=== PATIENT | male | born 1970 | race Caucasian/White ===

== ENCOUNTER 2017-12-04 09:48 | Emergency (ER) | payer OTHER, SELFPAY ==
--- OUTSIDE RECORDS SUMMARY | 2017-12-04 09:52 | XMS REPORT | Continuity of Care Document ---
:1970 Author Organization Interface Problems Problem Status Onset Classification Date Comments Source Date Reported ABDOMINAL PAIN Active 02/19/20 [facility] [place] [place] Dis[place] 07/10/19 07/13/2016 [facility] Diagnosis: 17 Generalized abdominal pain LOWER ABD PAIN Active 05/13/20 [facility] 14 ABD PAIN, Active 05/13/20 [facility] POSSIBLE ACUTE 14 DIVERTICULITIS Discharge 01/05/20 01/07/2014 [facility] Diagnosis: 14 Abdominal pain NAUSEA OR Active 01/24/20 [facility] VOMITING/ABD PAIN 12 Abdominal pain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 02/21/2017 [facility] Anxiety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 02/21/2017 [facility] Anxiety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 02/21/2017 depression [facility] Depression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 02/21/2017 [facility] 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 [facility] 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 [facility] Nausea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 02/21/2017 [facility] Pancreatitis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 02/21/2017 [facility] Pancreatitis,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 02/21/2017 acute [facility] Abdominal pain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 01/26/2012 [facility] Anxiety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 01/26/2012 [facility] Depression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 01/26/2012 [facility] 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 Nausea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 01/26/2012 [facility] Pancreatitis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 01/26/2012 [facility] Diverticulitis of Active Diagnosis 06/03/2014 Kaisen Fang colon GERD -Esophageal Active Diagnosis 06/03/2014 Kaisen Fang reflux Hypertension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 06/03/2014 K[facility] Fang Tension headache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 06/03/2014 K[facility] Fang Allergic rhinitis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 06/03/2014 Kaisen Fang Chronic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 06/03/2014 Kaisen Fang pancreatitis Bipolar disorder,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 06/03/2014 Kaisen Fang unspecified ABDMNAL PAIN Active [facility] SITE Medications Medication Details Route Status Patient Ordering Order Source Instructions Provider Date Morphine
2 mg, Inactive Route: IVP, 2016 [facility] ONCE, Dosing Weight 90.909, kg, Priority: STAT, Start date: 07/10/16 0:15:00 RESOURCE DEVELOPMENT DIRECTOR, Stop date: 07/10/16 0:15:00 RESOURCE DEVELOPMENT DIRECTOR Phenergan
12.5 mg, Inactive Route: IM, 2016 [facility] ONCE, Dosing Weight 90.909, kg, Priority: STAT, Start date: 07/10/16 0:14:00 RESOURCE DEVELOPMENT DIRECTOR, Stop date: 07/10/16 0:14:00 RESOURCE DEVELOPMENT DIRECTOR Zofran
4 mg, Inactive Route: IVP, 2016 [facility] Drug form: INJ, ONCE, Dosing Weight 90.909, kg, Priority: STAT, Start date: 07/09/16 23:36:00 RESOURCE DEVELOPMENT DIRECTOR, Stop date: 07/09/16 23:36:00 RESOURCE DEVELOPMENT DIRECTOR Bentyl
20 mg, Inactive Route: IM, 2016 [facility] ONCE, Dosing Weight 90.909, kg, Start date: 07/09/16 22:50:00 RESOURCE DEVELOPMENT DIRECTOR, Stop date: 07/09/16 22:50:00 RESOURCE DEVELOPMENT DIRECTOR Morphine
4 mg, 1 Inactive mL, Route: 2016 [facility] IVP, Drug form: SOLN, ONCE, Dosing Weight 90.909, kg, Priority: STAT, Start date: 07/09/16 22:05:00 RESOURCE DEVELOPMENT DIRECTOR, Stop date: 07/09/16 22:05:00 RESOURCE DEVELOPMENT DIRECTOR
Notes: (Same as:MORPhine Sulfate) Sodium Chloride
1,000 mL, Inactive 0.154 MEQ/ML 1,000 ml/hr, 2016 [facility] Injectable Infuse Over: 1 Solution hr, Route: IV, ONCE, Priority: STAT, Dosing Weight 90.909 kg, Start date: 07/09/16 22:04:00 RESOURCE DEVELOPMENT DIRECTOR, Duration: 1 doses or times, Stop date: 07/09/16 22:04:00 RESOURCE DEVELOPMENT DIRECTOR Sodium Chloride
1,000 mL, Inactive 0.154 MEQ/ML 1,000 ml/hr, 2016 [facility] Injectable Infuse Over: 1 Solution hr, Route: IV, 1,000, Drug form: INJ, ONCE, Priority: STAT, Dosing Weight 90.909 kg, Start date: 07/09/16 21:47:00 RESOURCE DEVELOPMENT DIRECTOR, Duration: 1 doses or times, Stop date: 07/09/16 21:47:00 RESOURCE DEVELOPMENT DIRECTOR Zofran
4 mg, 2 Inactive mL, Route: 2016 [facility] IVP, Drug form: INJ, ONCE, Dosing Weight 90.909, kg, Priority: STAT, Start date: 07/09/16 21:47:00 RESOURCE DEVELOPMENT DIRECTOR, Stop date: 07/09/16 21:47:00 RESOURCE DEVELOPMENT DIRECTOR
Notes: (Same as: Zofran) MEDICATION WASTE Product Size: 4 mg Product Wasted: ___ mg Ativan
1 mg, 0.5 Inactive mL, Route: 2016 [facility] IVP, Drug form: INJ, ONCE, Dosing Weight 90.909, kg, Priority: STAT, Start date: 07/07/16 20:25:00 RESOURCE DEVELOPMENT DIRECTOR, Stop date: 07/07/16 20:25:00 RESOURCE DEVELOPMENT DIRECTOR
Notes: (Same as: Ativan) Morphine
4 mg, 1 Inactive mL, Route: 2016 [facility] IVP, Drug form: SOLN, ONCE, Dosing Weight 90.909, kg, Priority: STAT, Start date: 07/07/16 20:22:00 RESOURCE DEVELOPMENT DIRECTOR, Stop date: 07/07/16 20:22:00 RESOURCE DEVELOPMENT DIRECTOR
Notes: (Same as:MORPhine Sulfate) Ativan
1 mg, Inactive Route: IVP, 2016 [facility] Drug form: INJ, ONCE, Dosing Weight 90.909, kg, Priority: STAT, Start date: 07/07/16 18:46:00 RESOURCE DEVELOPMENT DIRECTOR, Stop date: 07/07/16 18:46:00 RESOURCE DEVELOPMENT DIRECTOR Morphine
4 mg, Inactive Route: IVP, 2016 [facility] ONCE, Dosing Weight 90.909, kg, Priority: STAT, Start date: 07/07/16 18:46:00 RESOURCE DEVELOPMENT DIRECTOR, Stop date: 07/07/16 18:46:00 RESOURCE DEVELOPMENT DIRECTOR Zofran
4 mg, 2 Inactive mL, Route: 2016 [facility] IVP, Drug form: INJ, ONCE, Dosing Weight 90.909, kg, Priority: STAT, Start date: 07/07/16 18:12:00 RESOURCE DEVELOPMENT DIRECTOR, Stop date: 07/07/16 18:12:00 RESOURCE DEVELOPMENT DIRECTOR
Notes: (Same as: Dennis) MEDICATION WASTE Product Size: 4 mg Product Wasted: ___ mg Lactated Ringers
1,000 mL, Inactive 1,000 mL Rate: 1,[address] [place] [address] ml/hr, Infuse over: 1 hr, Route: IV, Dosing Weight 90.909 kg, Total Volume: 1,000, Start date: 07/07/16 18:11:00 RESOURCE DEVELOPMENT DIRECTOR, Duration: 1 doses or times, Stop date: 07/07/16 19:10:00 RESOURCE DEVELOPMENT DIRECTOR Saline Flush
10 mL, Inactive 0.9% Route: IVP, 2016 [facility] Drug Form: INJ, Dosing Weight 100, kg, PRN, PRN Line Flush, Start date: 07/07/16 17:10:00 RESOURCE DEVELOPMENT DIRECTOR, Duration: 30 day, Stop date: 08/06/16 17:09:00 RESOURCE DEVELOPMENT DIRECTOR
Notes: (Same as: BD Posiflush) Tramadol HCl 1 or 2 tablet Orally Active 50 mg Orally Fang 05/19/ Prachi every 6 hrs 2013 Fang for headache topiramate
25 mg, 1 Inactive tab, Route: 2013 [facility] PO, Drug form: TAB, Bedtime, Dosing Weight 100, kg, Start date: 05/14/14 21:00:00, Duration: 30 day, Stop date: 06/12/14 21:00:00
N otes: (Same As: Topamax) "Do Not Crush" Lactulose 667
20 gm=30 Active MG/ML Oral ml, PO, TID, 2013 [facility] Solution constipation, # 1,000 mL, 0 Refill(s) pantoprazole
40 mg, 1 Inactive tab, Route: 2013 [facility] PO, Drug form: ECTAB, Before Dinner, Dosing Weight 100, kg, Start date: 05/14/14 16:30:00, Duration: 30 day, Stop date: 06/12/14 16:30:00
N otes: Tablet should not be chewed or crushed. (Same as: Protonix) Lactulose 667
30 gm, 45 Inactive MG/ML Oral mL, Route: PO, 2013 [facility] Solution Drug Form: SYRP, Dosing Weight 100, kg, Daily, NOW, Start date: 05/14/14 12:30:00, Duration: 30 day, Stop date: 06/13/14 9:00:00
No nolberto: (Same as:Chronulac) Clonidine
0.1 mg, 1 Inactive Hydrochloride tab, Route: 2013 0.1 MG Oral PO, Drug form: Tablet TAB, BID, Dosing Weight 100, kg, Start date: 05/14/14 9:00:00, Duration: 30 day, Stop date: 06/12/14 17:00:00
N otes: (Same As: Catapres) topiramate
25 mg, 1 Inactive tab, Route: 2013 PO, Drug form: TAB, BID, Dosing Weight 100, kg, Start date: 05/14/14 9:00:00, Duration: 30 day, Stop date: 06/12/14 17:00:00
N otes: (Same As: Topamax) "Do Not Crush" duloxetine
90 mg, 3 Inactive cap, Route: 2013 PO, Drug form: DRC, Daily, Dosing Weight 100, kg, Start date: 05/14/14 9:00:00, Duration: 30 day, Stop date: 06/12/14 9:00:00
No nolberto: (Same as: Cymbalta) (Do Not Crush) Flagyl
500 mg, No Longer 100 mL, Route: Active 2013 IVPB, Drug form: INJ, [id number], Start date: 05/13/14 22:00:00, Duration: 30 day, Stop date: 06/12/14 14:00:00
N otes: (Same as: Flagyl) Avoid alcohol. Alprazolam 2 MG
2 mg, 2 No Longer Oral Tablet tab, Route: Active 2013 [facility] [Xanax] PO, Drug form: TAB, BID, Dosing Weight 100, kg, Start date: 05/13/14 21:30:00, Duration: 30 day, Stop date: 06/12/14 21:00:00
N otes: With food or milk (Same as: Xanax) Zofran
4 mg, 2 No Longer 05/14/ MH mL, Route: Active 2013 [facility] IVP, Drug form: INJ, Q6H, PRN Nausea, Start date: 05/13/14 21:01:00, Duration: 30 day, Stop date: 06/12/14 21:00:00
N otes: (Same as: Zofran) Cipro
400 mg, No Longer MH 200 mL, Route: Active 2013 [facility] IVPB, Drug form: INJ, [id number], Start date: 05/13/14 21:00:00, Duration: 30 day, Stop date: 06/12/14 9:00:00
No nolberto: Do not refrigerate Seroquel
50 mg, 2 No Longer tab, Route: Active 2013 [facility] PO, Drug form: TAB, Bedtime, Dosing Weight 100, kg, Start date: 05/13/14 21:00:00, Duration: 30 day, Stop date: 06/11/14 21:00:00
N otes: (Same as: SEROquel) morphine Sulfate
4 mg, 2 No Longer 05/14/ MH mL, Route: IV, Active 2013 [facility] Drug form: INJ, Q4H, PRN Pain Score 6-10, Start date: 05/13/14 21:00:00, Duration: 30 day, Stop date: 06/12/14 20:59:00
N otes: (Same as:MORPhine Sulfate) Sodium Chloride
1,000 mL, No Longer 0.45% IV 1,000 Rate: 125 Active 2013 [facility] mL ml/hr, Infuse over: 8 hr, Route: IV, Dosing Weight 100 kg, Total Volume: 1,000, Start date: 05/13/14 21:00:00, Duration: 30 day, Stop date: 06/12/14 20:59:00 Singulair
10 mg, 1 No Longer tab, Route: [facility] 2013 [facility] PO, Drug form: TAB, Bedtime, Dosing Weight 100, kg, Start date: 05/13/14 21:00:00, Duration: 30 day, Stop date: 06/11/14 21:00:00
N otes: (Same as:Singulair) Lamictal
250 mg, No Longer 2.5 tab, Active 2013 [facility] Route: PO, Drug form: TAB, Daily, Dosing Weight 100, kg, Start date: 05/13/14 21:00:00, Duration: 30 day, Stop date: 06/11/14 21:00:00
N otes: (Same as:LaMICtal) tramadol
50 mg, 1 No Longer hydrochloride 50 tab, Route: 2013 [facility] Oral Tablet PO, Drug form: TAB, Q6H, Dosing Weight 100, kg, PRN Headache, Start date: 05/13/14 18:52:00, Stop date: 05/23/14 17:21:00
N otes: Not to exceed 400mg/day. (Same As: Ultram) Zofran ODT
4 mg, 1 No Longer tab, Route: [facility] 2013 [facility] PO, Drug form: TABDIS, Q8H, Dosing Weight 100, kg, PRN as needed for nausea/vomitin g, Start date: 05/13/14 18:51:00, Stop date: 06/12/14 18:50:00
N otes: (Same as: Zofran ODT) Bentyl
20 mg, 1 No Longer tab, Route: [facility] 2013 [facility] PO, Drug form: TAB, QID, Dosing Weight 100, kg, PRN Other -See Comment, Start date: 05/13/14 18:50:00, Stop date: 06/12/14 18:49:00, abdominal pain
Notes : (Same as: Radha) topiramate 25 mg
25 mg=1 Active oral capsule cap, PO, BID, 2013 0 Refill(s) Clonidine
0.1 mg, Active Hydrochloride PO, BID, # 60 2013 0.1 MG Oral tab, 0 Tablet Refill(s) Lamictal
250 mg, Active PO, Daily, 0 2013 Refill(s) quetiapine 50 MG
50 mg=1 Active Oral Tablet tab, PO, 2013 [Seroquel] Bedtime, # 180 tab, 0 Refill(s) montelukast 10
10 mg=1 Active MG Oral Tablet tab, PO, 2013 [Singulair] Bedtime, # 30 tab, 0 Refill(s) tramadol
50 mg=1 Active hydrochloride 50 tab, PO, Q6H, 2013 MG Oral Tablet Pain, # 40 tab, 0 Refill(s) duloxetine 60 MG
90 mg, Active Enteric Coated PO, Daily, # 2013 Capsule 30 cap, 0 [Cymbalta] Refill(s) Alprazolam 2 MG
2 mg, PO, Active Oral Tablet BID, 0 2013 [Xanax] Refill(s) pantoprazole 40
=1 Pack, Active MG Granules PO, Daily, # 2013 [Protonix] 30 ea, 0 Refill(s) [place] 1 tablet as Orally Active 10-325 MG Fan Kaisen needed Orally every 2013 Fang 6 hrs Dexilant 1 capsule Orally Active 30 [facility] Kaisen Once a day 2013 Fang Metronidazole 1 tablet Orally Active 500 mg Orally [facility] 05/[facility]/ Kaisen Three times a 2013g day Cipro 1 tablet Orally Active 500 mg Orally Fang 05/12/ Kaisen every 12 hrs 2013 Fang Clonidine HCl 1 tablet at Orally Active 0.1 MG Orally Fang 04/19/ Kaisen bedtime twice a day 2013 Fang (bid) Topiramate 1 tablet Orally Active 25 MG Orally Fang 04/19/ Prachi twice a day 2013 Fang (bid) Dicyclomine
20 mg=1 Active Hydrochloride 20 tab, PO, QID, 2013 [facility] MG Oral Tablet abdominal [Bentyl] pain, # 30 tab, 0 Refill(s) Dicyclomine
20 mg=1 Active Hydrochloride 20 tab, PO, QID, 2013 [facility] MG Oral Tablet abdominal [Bentyl] pain, # 30 tab, 0 Refill(s) Ondansetron 4 MG
4 mg=1 Active Disintegrating tab, PO, Q8H, 2013 [facility] Tablet [Zofran] Nausea and Vomiting, Dissolve tab under tongue, # 10 tab, 0 Refill(s)
Special Instructions: Dissolve tab under tongue Dilaudid
0.5 mg, Inactive Route: IV, 2013 [facility] ONCE, Dosing Weight 100, kg, Priority: STAT, Start date: 01/04/14 14:28:00, Stop date: 01/04/14 14:28:00 Zofran
4 mg, Inactive Route: IVP, 2013 [facility] Drug form: INJ, ONCE, Dosing Weight 100, kg, Priority: STAT, Start date: 01/04/14 14:27:00, Stop date: 01/04/14 14:27:00 Hydromorphone
0.5 mg, Inactive 0.5 mL, Route: 2013 [facility] IVP, Drug form: INJ, ONCE, Dosing Weight 100, kg, Priority: STAT, Start date: 01/04/14 14:00:00, Stop date: 01/04/14 14:00:00 Sodium Chloride
1,000 mL, Inactive 0.154 MEQ/ML 1,000 ml/hr, 2013 [facility] Injectable Infuse Over: 1 Solution hr, Route: IV, 1,000, Drug form: INJ, ONCE, Priority: STAT, Dosing Weight 100 kg, Start date: 01/04/14 11:44:00, Duration: 1 doses or times, Stop date: 01/04/14 11:44:00 Ondansetron
4 mg, 2 Inactive mL, Route: 2013 [facility] IVP, Drug form: INJ, ONCE, Dosing Weight 100, kg, Priority: STAT, Start date: 01/04/14 11:44:00, Stop date: 01/04/14 11:44:00
N otes: (Same as: Zofran) Lorazepam
1 mg, 0.5 Inactive mL, Route: 2013 [facility] IVP, Drug form: INJ, ONCE, Dosing Weight 100, kg, Priority: STAT, Start date: 01/04/14 11:44:00, Stop date: 01/04/14 11:44:00
N otes: (Same as: Ativan) Hydromorphone
0.5 mg, Inactive 0.5 mL, Route: 2013 [facility] IVP, Drug form: INJ, ONCE, Dosing Weight 100, kg, Priority: STAT, Start date: 01/04/14 11:44:00, Stop date: 01/04/14 11:44:00 Zofran
4 mg, Inactive Route: IVP, 2013 [facility] Drug form: INJ, ONCE, Dosing Weight 100, kg, Priority: STAT, Start date: 01/04/14 9:52:00, Stop date: 01/04/14 9:52:00 Phenergan 25 mg 25 mg, 1 tab, PO Active Black oral tablet PO, Q4H, PRN, 2011 [facility] 15 tab, Nausea, Substitution Allowed Zofran 4 mg, 2 mL, IVP No Longer Banda Route: IVP, Active 2011 [facility] Drug form: INJ, ONCE, kg, Start date: 01/24/12 10:21:00, Stop date: 01/24/12 10:21:00 ketorolac 30 mg, 1 mL, IV No Longer Banda Route: IV, Active 2011 [facility] Drug form: INJ, ONCE, kg, Priority: STAT, Start date: 01/24/12 8:29:00, Stop date: 01/24/12 8:29:00 Phenergan + 12.5 mg, 0.5 IVP No Longer Banda Sodium Chloride mL, Route: IVP Central Active 2011 0.9% IV 20 mL Central, Drug form: INJ, ONCE, kg, PRN Nausea & Vomiting, Start date: 01/24/12 8:27:00 Sodium Chloride 1,000 mL, IV No Longer Banda 0.9% (Bolus) IV Rate: 1,000 Active 2011 [facility] 1,000 mL ml/hr, Infuse over: 1 hr, Route: IV, Dosing Weight 100 kg, Total Volume: 1,000, Priority: STAT, Start date: 01/24/12 8:27:00, Duration: 1 doses or times, Stop date: 01/24/12 9:26:00, Bolus Dose
Bolus Dose Saline Flush 5 ml, Route: IVP No Longer Banda 0.9% IVP, Drug Active 2011 [facility] Form: INJ, kg, PRN, PRN Line Flush, Start date: 01/24/12 8:27:00, Duration: 24 hr, Stop date: 01/25/12 8:26:00 Xanax 1/2 tablet in Orally Active 2 MG Orally Fang Kaisen am and noon, three times a Fang 1 tablet at day (tid) bedtime Lamictal 1 tablet Orally Active 250 Orally Fang Kaisen once every Fang night Cymbalta 1 capsule Orally Active 90 Orally Fang Kaisen Once a day Fang Singulair 1 tablet in Orally Active 10 MG Orally Fang Kaisen the evening Once a day Fang Protonix 1 tablet Orally No Longer 40 mg Orally Fang Kaisen Active once a day Fang Seroquel 1 tablet at Orally Active 50 mg Orally Fang Kaisen bedtime Once a day Fang Lisinopril 1 tablet Orally No Longer 20 MG Orally Fang Kaisen Active Once a day Fang Allergies, Adverse Reactions, Alerts Substance Category Reaction Severity Reaction Status Date Comments Source type Reported Lisinopril Adverse abd pain Adverse Active Kaisen Reaction Reaction 4 Fang Bactrim Assertion Drug Active [facility] Compazine Assertion shakey Propensity Active [facility] to adverse [place] reactions to drug Reglan Assertion shakey Propensity Active [facility] to adverse [place] reactions to drug sulfa drugs Assertion Drug Active [facility] Tape Assertion Drug Active [facility] [place] Immunizations Immunization Date Given Site Status Last Updated Comments Source Results Order Name Results Value Reference Date Interpretation Comments Source Range CHEM PANEL Lipase Lvl 243 unit/L 73 - 393 02/19 [facility] CARDIAC Troponin-I null 0.00 - 07/10 [facility] 0.40 [facility] CARDIAC CK MB null 0.5 - 3.6 07/10 [facility] CHEM PANEL B/C Ratio 8 6 - 25 07/10 [facility] CHEM PANEL A/G Ratio 1.2 0.7 - 1.6 07/10 [facility] CHEM PANEL Globulin 3.2 g/dL 2.7 - 4.2 07/10 [facility] CHEM PANEL AGAP 11.1 meq/L 10.0 - 07/10 20.0 [facility] CHEM PANEL eGFR 77 07/10 Result Comment: The eGFR is calculated using the CKD-EPI formula. In most young, healthy individuals the eGFR will be >90 mL/ min/1.73m2. The eGFR declines with age. An eGFR of 60-89 may be normal in mL/min/1.7 some populations, particularly the elderly, for whom the CKD-EPI formula has not been extensively validated. Use of the eGFR is not recommended in the following populations: [facility] 3m2 Individuals with unstable creatinine concentrations, including patients and those with serious co-morbid conditions. Patients with extremes in muscle mass or diet. The data above are obtained from the National Kidney Disease Education Program (NKDEP) which additionally recommends that when the eGFR is used in patients with extremes of body mass index for purposes of drug dosing, the eGFR should be multiplied by the estimated BMI. CHEM PANEL Alk Phos 53 unit/L 39 - 136 07/10 [facility] CHEM PANEL Bili Total 0.3 mg/dL 0.2 - 1.3 07/10 [facility] CHEM PANEL ALT 25 unit/L 0 - 65 07/10 [facility] CHEM PANEL AST 12 unit/L 0 - 37 07/10 [facility] CHEM PANEL BUN 9 mg/dL 7 - 22 07/10 [facility] CHEM PANEL Glucose Lvl 97 mg/dL 70 - 99 07/10 [facility] CHEM PANEL Total 7.1 g/dL 6.4 - 8.4 07/10 [facility] CHEM PANEL Albumin Lvl 3.9 g/dL 3.5 - 5.0 07/10 [facility] CHEM PANEL Potassium 4.1 meq/L 3.5 - 5.1 07/10 MH Lvl /2016 [facility] CHEM PANEL Creatinine 1.15 mg/dL 0.50 - 07/10 MH Lvl 1.40 [facility] CHEM PANEL Sodium Lvl 138 meq/L 135 - 145 07/10 [facility] CHEM PANEL Chloride Lvl 104 meq/L 95 - 109 07/10 [facility] CHEM PANEL CO2 27 meq/L 24 - 32 07/10 [facility] CHEM PANEL Calcium Lvl 8.8 mg/dL 8.5 - 10.5 07/10 [facility] CHEM PANEL Lipase Lvl 336 unit/L 73 - 393 07/10 [facility] HEMATOLOGY Lymphocytes 1.6 K/CMM 1.0 - 5.5 07/10 MH # /2016 [facility] HEMATOLOGY Eosinophils 0.2 K/CMM 0.0 - 0.5 07/10 [facility] HEMATOLOGY Monocytes # 0.5 K/CMM 0.0 - 0.8 07/10 [facility] HEMATOLOGY Segs-Bands # 6.4 K/CMM 1.5 - 8.1 07/10 [facility] HEMATOLOGY Basophils # 0.0 K/CMM 0.0 - 0.2 07/10 [facility] HEMATOLOGY Basophils 0.5 % 0.0 - 1.0 07/10 [facility] HEMATOLOGY Monocytes 6.0 % 2.0 - 12.0 07/10 [facility] HEMATOLOGY Eosinophils 1.8 % 0.0 - 4.0 07/10 [facility] HEMATOLOGY Segs 72.9 % 45.0 - 07/10 MH 75.0 [facility] HEMATOLOGY Lymphocytes 18.8 % 20.0 - 07/10 MH 40.0 [facility] HEMATOLOGY Platelet 235 K/CMM 133 - 450 07/10 [facility] HEMATOLOGY MPV 8.1 fL 7.4 - 10.4 07/10 [facility] HEMATOLOGY MCHC 33.4 g/dL 32.0 - 07/10 MH 36.0 [facility] HEMATOLOGY RDW 13.2 % 11.5 - 07/10 MH 14.5 [facility] HEMATOLOGY Hct 41.7 % 42.0 - 07/10 MH 54.0 [facility] HEMATOLOGY MCH 30.4 pg 27.0 - 07/10 MH 31.0 /2017 [facility] HEMATOLOGY MCV 91.2 fL 80.0 - 07/10 MH 94.0 /2016 [facility] HEMATOLOGY WBC 8.7 K/CMM 3.7 - 10.4 07/10 [facility] HEMATOLOGY Hgb 13.9 g/dL 14.0 - 07/10 18.0 /2016 [facility] HEMATOLOGY RBC 4.57 M/CMM 4.70 - 07/10 MH 6.10 /2016 [facility] URINE AND UA pH 7.0 5.0 - 8.0 07/10 [facility] URINE AND UA Glucose Negative Negative 07/10 STOOL mg/dL mg/dL [facility] URINE AND UA Protein Negative Negative 07/10 [facility] mg/dL mg/dL [facility] URINE AND UA <=1.0 0.1 - 1.0 07/10 [facility] Urobilinogen mg/dL [facility] URINE AND UA Turbidity Clear Clear 07/10 [facility] (07/09/16 8:42 PM) URINE AND UA Spec Grav 1.003 <=1.030 07/10 [facility] URINE AND UA Color Light Yellow Yellow 07/10 [facility] *NA* (07/09/16 8:42 PM) URINE AND UA Blood Small Negative 07/10 [facility] *ABN* (07/09/16 8:42 PM) URINE AND UA Bili Negative Negative 07/10 [facility] *NA* (07/09/16 8:42 PM) URINE AND UA Ketones Negative Negative 07/10 [facility]OOL mg/dL mg/dL [facility] URINE AND UA RBC null 0 - 2 07/10 [facility] URINE AND UA WBC null 0 - 5 07/10 [facility] URINE AND UA Sq Epi Few /LPF Few /LPF 07/10 [facility] URINE AND UA Leuk Est Negative Negative 07/10 [facility] (07/09/16 8:42 PM) URINE AND UA Nitrite Negative Negative 07/10 [facility] (07/09/16 8:42 PM) Abdomen 2 Abdomen 2 Study: 2 views of abdomen 07/09 - views DX views - [facility] History: Abdominal pain Read by: Gema Brock MD Dictated Date/time: 07/09/16 23:00 Electronically Signed by: Gema Brock MD 07/09/16 23:01 FINAL REPORT Comments: Visualized lung bases are clear. No radiographic evidence of free intraperitoneal air. No dilated small or large bowel loops. Moderate to large amount of stool in the right colon. Impression: Constipation. No bowel obstruction CHEM PANEL Magnesium 2.6 mg/dL 1.8 - 2.4 07/08 Lvl /2016 [facility] CHEM PANEL Lipase Lvl 248 unit/L 73 - 393 07/08 [facility] CHEM PANEL Amylase Lvl 79 unit/L 25 - 115 07/08 [facility] CHEM PANEL A/G Ratio 1.2 0.7 - 1.6 07/08 [facility] CHEM PANEL Globulin 3.5 g/dL 2.7 - 4.2 07/08 [facility] CHEM PANEL Bili Total 0.4 mg/dL 0.2 - 1.3 07/08 [facility] CHEM PANEL B/C Ratio 9 6 - 25 07/08 [facility] CHEM PANEL AGAP 8.9 meq/L 10.0 - 07/08 MH 20.0 [facility] CHEM PANEL eGFR 95 07/08 Result Comment: The eGFR is calculated using the CKD-EPI formula. In most young, healthy individuals the eGFR will be >90 mL/ min/1.73m2. The eGFR declines with age. An eGFR of 60-89 may be normal in mL/min/1.7 some populations, particularly the elderly, for whom the CKD-EPI formula has not been extensively validated. Use of the eGFR is not recommended in the following populations: [address] Individuals with unstable creatinine concentrations, including patients and those with serious co-morbid conditions. Patients with extremes in muscle mass or diet. The data above are obtained from the National Kidney Disease Education Program (NKDEP) which additionally recommends that when the eGFR is used in patients with extremes of body mass index for purposes of drug dosing, the eGFR should be multiplied by the estimated BMI. CHEM PANEL Glucose Lvl 78 mg/dL 70 - 99 07/08 [facility] CHEM PANEL BUN 9 mg/dL 7 - 22 07/08 [facility] CHEM PANEL CO2 30 meq/L 24 - 32 07/08 [facility] CHEM PANEL Alk Phos 54 unit/L 39 - 136 07/08 [facility] CHEM PANEL Calcium Lvl 8.9 mg/dL 8.5 - 10.5 07/08 [facility] CHEM PANEL Sodium Lvl 139 meq/L 135 - 145 07/08 [facility] CHEM PANEL Creatinine 0.96 mg/dL 0.50 - 07/08 MH Lvl 1.40 [facility] CHEM PANEL Albumin Lvl 4.1 g/dL 3.5 - 5.0 07/08 [facility] CHEM PANEL Total 7.6 g/dL 6.4 - 8.4 07/08 [facility] CHEM PANEL Potassium 3.9 meq/L 3.5 - 5.1 07/08 MH Lvl /2016 [facility] CHEM PANEL Chloride Lvl 104 meq/L 95 - 109 07/08 [facility] CHEM PANEL AST 9 unit/L 0 - 37 07/08 [facility] CHEM PANEL ALT 25 unit/L 0 - 65 07/08 [facility] HEMATOLOGY Eosinophils 0.1 K/CMM 0.0 - 0.5 07/08 [facility] HEMATOLOGY Basophils # 0.0 K/CMM 0.0 - 0.2 07/08 [facility] HEMATOLOGY Lymphocytes 1.8 K/CMM 1.0 - 5.5 07/08 [facility] HEMATOLOGY Monocytes # 0.4 K/CMM 0.0 - 0.8 07/08 [facility] HEMATOLOGY Eosinophils 1.5 % 0.0 - 4.0 07/08 [facility] HEMATOLOGY Basophils 0.4 % 0.0 - 1.0 07/08 [facility] HEMATOLOGY Segs-Bands # 4.6 K/CMM 1.5 - 8.1 07/08 [facility] HEMATOLOGY Monocytes 5.5 % 2.0 - 12.0 07/08 [facility] HEMATOLOGY Segs 66.8 % 45.0 - 07/08 MH 75.0 [facility] HEMATOLOGY Lymphocytes 25.8 % 20.0 - 07/08 MH 40.0 [facility] HEMATOLOGY MPV 8.4 fL 7.4 - 10.4 07/08 [facility] HEMATOLOGY MCH 30.0 pg 27.0 - 07/08 MH 31.0 [facility] HEMATOLOGY MCHC 32.7 g/dL 32.0 - 07/08 MH 36.0 [facility] HEMATOLOGY RDW 13.7 % 11.5 - 07/08 MH 14. [facility] HEMATOLOGY Platelet 277 K/CMM 133 - 450 07/08 [facility] HEMATOLOGY MCV 91.8 fL 80.0 - 07/08 94.0 [facility] HEMATOLOGY RBC 4.94 M/CMM 4.70 - 07/08 MH 6.10 /2016 [facility] HEMATOLOGY WBC 6.9 K/CMM 3.7 - 10.4 07/08 [facility] HEMATOLOGY Hct 45.4 % 42.0 - 07/08 54.0 [facility] HEMATOLOGY Hgb 14.8 g/dL 14.0 - 07/08 18.0 [facility] URINE AND UA <=1.0 0.1 - 1.0 07/08 [facility] Urobilinogen mg/dL [facility] URINE AND UA Sq Epi None Seen 07/08 [facility] URINE AND UA Bacteria Occasional None Seen 07/08 [facility] /HPF /HPF [facility] URINE AND UA Nitrite Negative Negative 07/08 [facility] (07/07/16 6:15 PM) URINE AND UA Leuk Est Negative Negative 07/08 STOOL [facility] (07/07/16 6:15 PM) URINE AND UA Bili Negative Negative 07/08 [facility] *NA* (07/07/16 6:15 PM) URINE AND UA Blood Small Negative 07/08 [facility] *ABN* (07/07/16 6:15 PM) URINE AND UA Ketones Negative Negative 07/08 [facility] mg/dL mg/dL [facility] URINE AND UA Glucose Negative Negative 07/08 [facility] mg/dL mg/dL [facility] URINE AND UA Protein Negative Negative 07/08 [facility] mg/dL mg/dL [facility] URINE AND UA Color Colorless Yellow 07/08 [facility] *NA* (07/07/16 6:15 PM) URINE AND UA WBC null 0 - 5 07/08 [facility] URINE AND UA Turbidity Clear Clear 07/08 [facility] (07/07/16 6:15 PM) URINE AND UA pH 7.0 5.0 - 8.0 07/08 [facility] URINE AND UA Spec Grav 1.002 <=1.030 07/08 [facility] URINE AND UA <=1.0 0.1 - 1.0 05/14 STOOL Urobilinogen mg/dL [facility] URINE AND UA Color Ltyellow 05/14 [facility] URINE AND UA Spec Grav 1.006 <=1.030 05/14 [facility] URINE AND UA Glucose Negative Negative 05/14 [facility] mg/dL mg/dL [facility] URINE AND UA pH 7.0 5.0 - 8.0 05/14 [facility] URINE AND UA Turbidity Clear Clear 05/14 [facility] (05/14/14 8:48 AM) URINE AND UA Sq Epi None Seen 05/14 [facility] URINE AND UA Protein Negative Negative 05/14 [facility] mg/dL mg/dL [facility] URINE AND UA Leuk Est Negative Negative 05/14 [facility] (05/14/14 8:48 AM) URINE AND UA WBC null 0 - 5 05/14 [facility] URINE AND UA Nitrite Negative Negative 05/14 [facility] (05/14/14 8:48 AM) URINE AND UA Blood Negative Negative 05/14 [facility] (05/14/14 8:48 AM) URINE AND UA Bili Negative Negative 05/14 [facility] *NA* (05/14/14 8:48 AM) URINE AND UA Ketones Negative Negative 05/14 [facility] mg/dL mg/dL [facility] Abdomen/Pe Abdomen/Pelv I. CT SCAN of the ABDOMEN with CONTRAST 05/14 - lvis w IV is w IV - [facility] contrast contrast CT II. CT SCAN of the PELVIS with CONTRAST CT Read by: Dilan Clement MD Dictated Date/time: 05/14/14 11:52 Electronically Signed by: Dilan Clement MD 05/14/14 12:09 FINAL REPORT HISTORY: Abdominal pain. Comparison is made to 01/04/2014. I. CT SCAN of the ABDOMEN with CONTRAST TECHNIQUE: Helical CT images were obtained from the domes the diaphragms to the iliac crests following the administration of nonionic iodinated intravenous contrast. Oral contrast was not provided. It i s indicated by the technologist that the patient declined oral contrast. II. CT SCAN of the PELVIS with CONTRAST TECHNIQUE: Helical CT images were obtained from the iliac crests to the pubic symphysis following the administration of nonionic iodinated intravenous contrast. Oral contrast was not provided. It is ind icated by the technologist the patient declined oral contrast. Sagittal and coronal reconstructions were provided. FINDINGS: There is no free intraperitoneal gas, abscess, focal inflammation, or other evidence of an acute intra-abdominal process. The stomach is mildly distended with fluid. Is a nonspecific finding There is a moderate amount of fecal material within the colon (constipation). The gastrointestinal structures are otherwise unremark able. The appendix is not definitely visualized. Evaluation the gastrointestinal structures is limited due to lack of oral contrast. Status post cholecystectomy. Surgical clips are noted in the right upper quadrant. The liver, spleen, pancreas, and adrenal glands are normal in appearance. The kidneys show good, symmetrical excretion without hydronephrosis. No focal lesions are seen. No mass or adenopathy is seen within the abdomen or pelvis. There is no ascites or other fluid collection. The aorta is normal in caliber. There are no significant atherosclerotic changes. There is mild bibasilar atelectasis. The visualized lung bases are otherwise clear. There are no pleural effusions. The heart is normal in size. There is no pericardial effusion. The regional skeleton is unremarkable. CONCLUSION: 1. Evidence of an acute intra-abdominal process. 2. The stomach is mildly distended with fluid which is nonspecific. 3. Constipation. 4. Status post cholecystectomy. 5. Mild bibasilar atelectasis. Coding: Abdomen/Pelvis w contrast CT SL: 13 Dilan Clement M.D. ANEMIA Ferritin Lvl 31 ng/mL 22 - 275 05/14 [facility] ANEMIA Folate Lvl 15.7 ng/mL >=3.0 05/14 STUDY ng/mL [facility] ANEMIA UIBC 282 ug/dl 110 - 370 05/14 [facility] ANEMIA % S[place] Fe 21 % 12 - 57 05/14 [facility] ANEMIA Iron 76 ug/dl 45 - 160 05/14 [facility] ANEMIA TIBC 358 ug/dl 228 - 428 05/14 [facility] ANEMIA Vitamin B12 510 pg/mL 254 - 1320 05/14 STUDY Lvl [facility] CHEM PANEL Lipase Lvl 170 unit/L 73 - 393 05/14 [facility] ELECTROLYT Chloride Lvl 105 meq/L 95 - 109 05/14 [facility] ELECTROLYT Sodium Lvl 141 meq/L 135 - 145 05/14 [facility] ELECTROLYT Potassium 3.7 meq/L 3.5 - 5.1 05/14 [facility] ELECTROLYT eGFR 82 05/14 1Result Comment: The eGFR is calculated using the CKD-EPI formula. In most young, healthy individuals the eGFR will be >90 mL/ min/1.73m2. The eGFR declines with age. An eGFR of 60-89 may be normal in [facility] mL/min/1. some populations, particularly the elderly, for whom the CKD-EPI formula has not been extensively validated. Use of the eGFR is not recommended in the following populations: [facility] 3m2 Individuals with unstable creatinine concentrations, including patients and those with serious co-morbid conditions. Patients with extremes in muscle mass or diet. The data above are obtained from the National Kidney Disease Education Program (NKDEP) which additionally recommends that when the eGFR is used in patients with extremes of body mass index for purposes of drug dosing, the eGFR should be multiplied by the estimated BMI. ELECTROLYT AST 17 unit/L 0 - 37 05/14 [facility] ELECTROLYT ALT 25 unit/L 0 - 65 05/14 [facility] ELECTROLYT Creatinine 1.1 mg/dL 0.5 - 1.4 05/14 [facility] Lvl [facility] ELECTROLYT Glucose Lvl 85 mg/dL 70 - 99 05/14 2Interpretive Data: Adult reference range values reflect the clinical guidelines of the [employer]. [facility] ELECTROLYT BUN 6 mg/dL 7 - 22 05/14 [facility] ELECTROLY[facility] Albumin Lvl 3.6 g/dL 3.5 - 5.0 05/14 [facility]LECT[facility] Total 6.6 g/dL 6.4 - 8.4 05/14 [facility] Calcium Lvl 8.5 mg/dL 8.5 - 10.5 05/14 [facility]LECT[facility] CO2 31 meq/L 24 - 32 05/14 [facility] Globulin 3.0 g/dL 2.0 - 4.0 05/14 [facility] B/C Ratio 5 6 - 25 05/14 [facility] Bili Total 0.2 mg/dL 0.2 - 1.3 05/14 [facility] ELECTROLYT Alk Phos 62 unit/L 39 - 136 05/14 [facility] A/G Ratio 1.2 0.7 - 1.6 12 ES /2013 [facility] ELECTROLYT AGAP 8.7 meq/L 10.0 - 05/14 MH ES 20.0 /2013 [facility] HEMATOLOGY Segs-Bands # 2.1 K/CMM 1.5 - 8.1 05/14 /2013 [facility] HEMATOLOGY Eosinophils 8.1 % 0.0 - 4.0 05/14 /2013 [facility] HEMATOLOGY Monocytes 9.1 % 2.0 - 12.0 05/14 /2013 [facility] HEMATOLOGY Lymphocytes 38.2 % 20.0 - 12 MH 40.0 /2013 [facility] HEMATOLOGY Monocytes # 0.4 K/CMM 0.0 - 0.8 05/14 /2013 [facility] HEMATOLOGY Eosinophils 0.4 K/CMM 0.0 - 0.5 05/14 MH # /2013 [facility] HEMATOLOGY Basophils 0.5 % 0.0 - 1.0 05/14 /2013 [facility] HEMATOLOGY Lymphocytes 1.8 K/CMM 1.0 - 5.5 05/14 MH # /2013 [facility] HEMATOLOGY Segs 44.1 % 45.0 - 05/14 MH 75.0 /2013 [facility] HEMATOLOGY Sed Rate 8 mm/h 0 - 15 05/14 /2013 [facility] HEMATOLOGY Hgb 12.8 g/dL 14.0 - 05/14 MH 18.0 /2013 [facility] HEMATOLOGY MCH 30.1 pg 27.0 - 05/14 MH 31.0 /2013 [facility] HEMATOLOGY RBC 4.26 M/CMM 4.70 - 05/14 MH 6.10 /2013 [facility] HEMATOLOGY Hct 38.5 % 42.0 - 05/14 MH 54.0 /2013 [facility] HEMATOLOGY RDW 13.1 % 11.5 - 05/14 MH 14.5 /2013 [facility] HEMATOLOGY Platelet 204 K/CMM 133 - 450 05/14 [facility] HEMATOLOGY MCV 90.4 fL 80.0 - 05/14 MH 94.0 /2013 [facility] HEMATOLOGY MCHC 33.3 g/dL 32.0 - 05/14 MH 36.0 /2013 [facility] HEMATOLOGY MPV 9.1 fL 7.4 - 10.4 05/14 [facility] HEMATOLOGY WBC 4.8 K/CMM 3.7 - 10.4 05/14 [facility] IMMUNOLOGY C-REACTIVE 9.1 mg/L <=2.9 mg/L 05/14 [facility] URINE AND Occult Bld Negative Negative 01/04 STOOL Stl [facility] (01/04/14 11:41 AM) CHEM PANEL Lipase Lvl 193 unit/L 73 - 393 01/04 [facility] CHEM PANEL Amylase Lvl 57 unit/L 25 - 115 01/04 [facility] CHEM PANEL eGFR 74 01/04 1Result Comment: The eGFR is calculated using the CKD-EPI formula. In most young, healthy individuals the eGFR will be >90 mL/ min/1.73m2. The eGFR declines with age. An eGFR of 60-89 may be normal in mL/min/1. some populations, particularly the elderly, for whom the CKD-EPI formula has not been extensively validated. Use of the eGFR is not recommended in the following populations: [facility] 3m2 Individuals with unstable creatinine concentrations, including patients and those with serious co-morbid conditions. Patients with extremes in muscle mass or diet. The data above are obtained from the National Kidney Disease Education Program (NKDEP) which additionally recommends that when the eGFR is used in patients with extremes of body mass index for purposes of drug dosing, the eGFR should be multiplied by the estimated BMI. CHEM PANEL Calcium Lvl 9.5 mg/dL 8.5 - 10.5 01/04 [facility] CHEM PANEL CO2 28 meq/L 24 - 32 01/04 [facility] CHEM PANEL Albumin Lvl 4.1 g/dL 3.5 - 5.0 01/04 [facility] CHEM PANEL Total 7.6 g/dL 6.4 - 8.4 01/04 Protein [facility] CHEM PANEL ALT 18 unit/L 0 - 65 01/04 [facility] CHEM PANEL Sodium Lvl 140 meq/L 135 - 145 01/04 [facility] CHEM PANEL Potassium 3.4 meq/L 3.5 - 5.1 01/04 Lvl [facility] CHEM PANEL Chloride Lvl 104 meq/L 95 - 109 01/04 [facility] CHEM PANEL Bili Total 0.3 mg/dL 0.2 - 1.3 01/04 [facility] CHEM PANEL Alk Phos 74 unit/L 39 - 136 01/04 [facility] CHEM PANEL AST 13 unit/L 0 - 37 01/04 [facility] CHEM PANEL Glucose Lvl 91 mg/dL 70 - 99 01/04 2Interpretive Data: Adult reference range values reflect the clinical guidelines of the [employer]. [facility] CHEM PANEL BUN 6 mg/dL 7 - 22 01/04 [facility] CHEM PANEL Creatinine 1.2 mg/dL 0.5 - 1.4 01/04 Lvl [facility] CHEM PANEL A/G Ratio 1.2 0.7 - 1.6 01/04 [facility] CHEM PANEL Globulin 3.5 g/dL 2.0 - 4.0 01/04 [facility] CHEM PANEL B/C Ratio 5 6 - 25 01/04 [facility] CHEM PANEL AGAP 11.4 meq/L 10.0 - 01/04 20.0 [facility] HEMATOLOGY MCH 29.5 pg 27.0 - 01/04 31.0 [facility] HEMATOLOGY Hgb 14.4 g/dL 14.0 - 01/04 18.0 [facility] HEMATOLOGY Hct 43.3 % 42.0 - 01/04 54.0 [facility] HEMATOLOGY MCV 88.6 fL 80.0 - 01/04 94.0 [facility] HEMATOLOGY Platelet 231 K/CMM 133 - 450 01/04 [facility] HEMATOLOGY WBC 10.0 K/CMM 3.7 - 10.4 01/04 [facility] HEMATOLOGY RBC 4.89 M/CMM 4.70 - 01/04 MH 6.10 [facility] HEMATOLOGY MPV 8.9 fL 7.4 - 10.4 01/04 [facility] MCHC 33.3 g/dL 32.0 - 01/04 36.0 [facility] HEMATOLOGY RDW 13.5 % 11.5 - 01/04 14.5 [facility] HEMATOLOGY Basophils # 0.1 K/CMM 0.0 - 0.2 01/04 [facility] HEMATOLOGY Segs 77.0 % 45.0 - 01/04 75.0 [facility] HEMATOLOGY Lymphocytes 13.4 % 20.0 - 01/04 MH 40.0 [facility] HEMATOLOGY Eosinophils 1.6 % 0.0 - 4.0 01/04 [facility] HEMATOLOGY Monocytes 7.3 % 2.0 - 12.0 01/04 [facility] HEMATOLOGY Segs-Bands # 7.7 K/CMM 1.5 - 8.1 01/04 [facility] HEMATOLOGY Basophils 0.7 % 0.0 - 1.0 01/04 [facility] HEMATOLOGY Lymphocytes 1.3 K/CMM 1.0 - 5.5 01/04 # /2013 [facility] HEMATOLOGY Monocytes # 0.7 K/CMM 0.0 - 0.8 01/04 [facility] HEMATOLOGY Eosinophils 0.2 K/CMM 0.0 - 0.5 01/04 # /2013 [facility] URINE AND UA Bacteria Occasional None Seen 01/04 [facility] /HPF /HPF URINE AND UA Sq Epi Occasional Few /LPF 01/04 [facility] /LPF /2013 URINE AND UA Nitrite Negative Negative 01/04 [facility] (01/04/14 9:00 AM) URINE AND UA Bili Negative Negative 01/04 [facility] *NA* (01/04/14 9:00 AM) URINE AND UA Blood Negative Negative 01/04 [facility] (01/04/14 9:00 AM) URINE AND UA Protein Negative Negative 01/04 [facility] (01/04/14 9:00 AM) URINE AND UA Glucose Negative Negative 01/04 [facility] (01/04/14 9:00 AM) URINE AND UA 0.2 EU/dL 0.1 - 1.0 01/04 [facility] Urobilinogen /2013 URINE AND UA Ketones Negative Negative 01/04 [facility] *NA* (01/04/14 9:00 AM) URINE AND UA Color Yellow Yellow 01/04 [facility] *NA* (01/04/14 9:00 AM) URINE AND UA Turbidity Clear Clear 01/04 (01/04/14 9:00 AM) URINE AND UA Spec Grav <=1.005 <=1.030 01/04 [facility]
*NA*< /2013 br/>( 9:00 AM) URINE AND UA pH 7.5 5.0 - 8.0 01/04 URINE AND UA Leuk Est Negative Negative 01/04 [facility] (01/04/14 9:00 AM) Abdomen/Pe Abdomen/Pelv CT Abdomen with Contrast, CT Pelvis with Contrast: 01/04 - lvis w IV is w IV - contrast contrast CT CT TECHNIQUE: Contiguous transaxial images of the abdomen and pelvis were performed from the lung bases to the superior pubic rami with IV contrast. Oral contrast was also administered. Read by: Jeffrey Louis MD Dictated Date/time: 01/04/14 13:55 Electronically Signed by: Jeffrey Louis MD 01/04/14 14:10 FINAL REPORT COMPARISON: 06/03/2011 CLINICAL HX: Abdomen pain CT ABDOMEN: Lower Chest: Mild dependent atelectasis is present at the lung bases. GI Tract: There is no evidence for free fluid or free air in the abdomen. Tract and retroperitoneum: The kidneys demonstrate normal morphology and symmetric excretion. No significant retroperitoneal lymphadenopathy is noted. Abdominal viscera: The liver, spleen, pancreas, and both adrenals demonstrate normal morphology. Status post cholecystectomy. Vasculature: The aorta demonstrates normal morphology. Bone and Soft tissues: No significant bony abnormality is noted. CT PELVIS: The bladder, seminal vesicles and the prostate gland demonstrate normal morphology. No free fluid is present in the pelvis. IMPRESSION: No significant acute abnormality is noted on the contrast CT of the abdomen or pelvis. SL:13 CHEMISTRY Lipase Lvl 218 unit/L 73 - 393 01/23 Normal [facility] CHEMISTRY AST 10 unit/L 0 - 37 01/23 Normal [facility] CHEMISTRY Calcium Lvl 8.4 mg/dL 8.5 - 10.5 01/23 LOW [facility] CHEMISTRY CO2 25 meq/L 24 - 32 01/23 Normal [facility] CHEMISTRY Total 6.8 g/dL 6.4 - 8.4 01/23 Normal Protein [facility] CHEMISTRY Bili Total 0.2 mg/dL 0.2 - 1.3 01/23 Normal [facility] CHEMISTRY Albumin Lvl 3.6 g/dL 3.5 - 5.0 01/23 Normal [facility] CHEMISTRY Alk Phos 53 unit/L 39 - 136 01/23 Normal [facility] CHEMISTRY ALT 29 unit/L 0 - 65 01/23 Normal [facility] CHEMISTRY Glucose Lvl 86 mg/dL 70 - 99 01/23 Normal 1Interpretive Data: Adult reference range values reflect the clinical guidelines of the [employer]. [facility] CHEMISTRY BUN 10 mg/dL 7 - 22 01/23 Normal [facility] CHEMISTRY Creatinine 1.0 mg/dL 0.5 - 1.4 01/23 Normal MH Lvl /2011 [facility] CHEMISTRY Potassium 3.6 meq/L 3.5 - 5.1 08/ Normal MH Lvl /2011 [facility] CHEMISTRY Sodium Lvl 141 meq/L 135 - 145 01/23 Normal /2011 [facility] CHEMISTRY Chloride Lvl 108 meq/L 95 - 109 08/ Normal /2011 [facility] CHEMISTRY AGAP 11.6 meq/L 10.0 - 08 Normal MH 20.0 /2011 [facility] CHEMISTRY B/C Ratio 10 6 - 25 01/23 Normal /2011 [facility] CHEMISTRY Globulin 3.2 g/dL 2.0 - 4.0 01/23 Normal /2011 [facility] CHEMISTRY A/G Ratio 1.1 0.7 - 1.6 01/23 Normal /2011 [facility] HEMATOLOGY Platelet 247 K/CMM 133 - 450 01/23 Normal /2011 [facility] HEMATOLOGY MPV 8.6 fL 7.4 - 10.4 01/23 Normal /2011 [facility] HEMATOLOGY RDW 14.9 % 11.5 - 01/23 HI MH 14.5 /2011 [facility] HEMATOLOGY MCHC 33.5 g/dL 32.0 - 01/23 Normal MH 36.0 /2011 [facility] HEMATOLOGY Hct 35.2 % 42.0 - 01/23 LOW MH 54.0 /2011 [facility] HEMATOLOGY MCV 85.8 fL 80.0 - 01/23 Normal MH 94.0 /2011 [facility] HEMATOLOGY MCH 28.7 pg 27.0 - 01/23 Normal MH 31.0 /2011 [facility] HEMATOLOGY RBC 4.10 M/CMM 4.70 - 01/23 LOW MH 6.10 /2011 [facility] HEMATOLOGY Hgb 11.8 g/dL 14.0 - 01/23 LOW MH 18.0 /2011 [facility] HEMATOLOGY WBC 4.1 K/CMM 3.7 - 10.4 01/23 Normal /2011 [facility] HEMATOLOGY Basophils # 0.0 K/CMM 0.0 - 0.2 / Normal MH /2011 [facility] HEMATOLOGY Segs-Bands # 2.4 K/CMM 1.5 - 8.1 01/23 Normal /2011 [facility] HEMATOLOGY Lymphocytes 1.0 K/CMM 1.0 - 5.5 / Normal MH # /2011 [facility] HEMATOLOGY Eosinophils 0.2 K/CMM 0.0 - 0.5 / Normal MH # /2011 [facility] HEMATOLOGY Monocytes # 0.4 K/CMM 0.0 - 0.8 / Normal /2011 [facility] HEMATOLOGY Basophils 0.2 % 0.0 - 1.0 01/23 Normal /2011 [facility] HEMATOLOGY Segs 58.4 % 45.0 - 01/23 Normal 75.0 /2011 [facility] HEMATOLOGY Lymphocytes 25.2 % 20.0 - 08 Normal MH 40.0 /2011 [facility] HEMATOLOGY Monocytes 10.4 % 2.0 - 12.0 01/23 Normal [facility] HEMATOLOGY Eosinophils 5.8 % 0.0 - 4.0 01/23 HI /2011 [facility] Vital Signs Vital Sign Value Date Comments Source Temperature Oral (F) 98.7 F 07/10/2016 [facility] Heart Rate 86 07/10/2016 [facility] Respitory Rate 15 07/10/2016 [facility] Systolic (mm Hg) 122 07/10/2016 [facility] Diastolic (mm Hg) 82 07/10/2016 [facility] Respitory Rate 18 07/10/2016 [facility] Heart Rate 87 07/10/2016 [facility] Systolic (mm Hg) 114 07/10/2016 [facility] Diastolic (mm Hg) 87 07/10/2016 [facility] Systolic (mm Hg) 134 07/10/2016 [facility] Diastolic (mm Hg) 95 07/10/2016 [facility] Heart Rate 98 07/10/2016 [facility] Respitory Rate 18 07/10/2016 [facility] Weight 90.909 07/10/2016 [facility] Temperature Oral (F) 99.0 F 07/10/2016 [facility] Respitory Rate 18 07/08/2016 [facility] Temperature Oral (F) 98.5 F 07/08/2016 [facility] Systolic (mm Hg) 134 07/08/2016 [facility] Diastolic (mm Hg) 94 07/08/2016 [facility] Heart Rate 79 07/08/2016 [facility] Systolic (mm Hg) 148 07/08/2016 [facility] Diastolic (mm Hg) 83 07/08/2016 [facility] Respitory Rate 20 07/08/2016 [facility] Heart Rate 81 07/08/2016 [facility] BMI Calculated 29.6 07/07/2016 [facility] Weight 90.909 07/07/2016 [facility] Temperature Oral (F) 98.1 F 07/07/2016 [facility] Height 175.26 cm 07/07/2016 [facility] Heart Rate 90 07/07/2016 [facility] Systolic (mm Hg) 139 07/07/2016 [facility] Diastolic (mm Hg) 90 07/07/2016 [facility] Respitory Rate 20 07/07/2016 [facility] Diastolic (mm Hg) 72 05/14/2014 [facility] Systolic (mm Hg) 105 05/14/2014 [facility] Respitory Rate 18 05/14/2014 [facility] Temperature Oral (F) 98.4 F 05/14/2014 [facility] Heart Rate 84 05/14/2014 [facility] Systolic (mm Hg) 100 05/14/2014 [facility] Diastolic (mm Hg) 63 05/14/2014 [facility] Heart Rate 75 05/14/2014 [facility] Temperature Oral (F) 97.8 F 05/14/2014 [facility] Respitory Rate 18 05/14/2014 [facility] Temperature Oral (F) 97.9 F 05/14/2014 [facility] Heart Rate 66 05/14/2014 [facility] Respitory Rate 17 05/14/2014 [facility] Systolic (mm Hg) 100 05/14/2014 [facility] Diastolic (mm Hg) 67 05/14/2014 [facility] Weight 100 05/13/2014 [facility] Height 175.26 cm 05/13/2014 [facility] BMI Calculated 32.56 05/13/2014 [facility] BMI Calculated 32.56 05/13/2014 [facility] Height 175.26 cm 05/13/2014 [facility] Weight 100 05/13/2014 [facility] Weight 194.5 05/12/2014 [facility] Height 68.6 05/12/2014 [facility] Temperature Oral (F) 98.6 F 05/12/2014 [facility] Heart Rate 83 05/12/2014 [facility] Diastolic (mm Hg) 82 05/12/2014 [facility] Systolic (mm Hg) 128 05/12/2014 [facility] Respitory Rate 20 05/12/2014 [facility] Weight 195.2 04/19/2014 [facility] Height 68.6 04/19/2014 [facility] Temperature Oral (F) 98.6 F 04/19/2014 [facility] Heart Rate 95 04/19/2014 [facility] Diastolic (mm Hg) 95 04/19/2014 [facility] Systolic (mm Hg) 136 04/19/2014 [facility] Respitory Rate 18 04/19/2014 [facility] Systolic (mm Hg) 114 01/04/2014 [facility] Respitory Rate 18 01/04/2014 [facility] Diastolic (mm Hg) 69 01/04/2014 [facility] Diastolic (mm Hg) 68 01/04/2014 [facility] Heart Rate 83 01/04/2014 [facility] Respitory Rate 18 01/04/2014 [facility] Systolic (mm Hg) 115 01/04/2014 [facility] [facility] Heart Rate 91 01/04/2014 [facility] Respitory Rate 18 01/04/2014 [facility] BMI Calculated 32.56 01/04/2014 [facility] Height 175.26 cm 01/04/2014 [facility] Weight 100 01/04/2014 [facility] Temperature Oral (F) 98.4 F 01/04/2014 [facility] Diastolic (mm Hg) 81 01/04/2014 [facility] Systolic (mm Hg) 136 01/04/2014 [facility] Heart Rate 144 01/04/2014 [facility] Weight 100.000 01/24/2012 [facility] Height 175.26 cm 01/24/2012 [facility] Encounters Location Location Encounter Encounter Reason Attending ADM DC Status Source Details Type Number For Provider Date Date Visit Emergency [id number] SAMIR 01/23 01/23 Active [facility] WILTON /2011 [facility] EC [id number] Samir Johnsone 01/04 01/04 Zack Emergency /2013 [facility] Prachi Initial [id number] 04/19 04/19 Prachi Guzmán MD visit [id number] /2013 [facility] [id number] Prachi Initial [id number] 04/19 04/19 Prachi Guzmán MD visit [id number] /2013 [facility] [id number] Prachi Sick Visit [id number] 05/12 05/12 Prachi Guzmán MD - Follow up [id number] /2013 [facility] for [id number] multiple problems [facility] Inpatient [id number] Prachi 05/13 05/14 ARON Guzmán /2013 [facility] Emergency [id number] Coy 07/07 07/08 Zack Burt /2016 [facility] Emergency [id number] Coy 07/10 07/10 Zack Burt /2016 [facility] Outpatient [id number] Non 02/19 02/19 Zack Physician /2016 [facility] Procedures Procedure Code Date Perfomer Comments Source Appendectomy [id number] [facility] Bladder [id number] pt reports [facility] operation<sup>1</sup> bladder was blistered Cholecystectomy [id number] [facility] Appendectomy [id number] [facility] Bladder [id number] pt reports [facility] operation<sup>1</sup> bladder was blistered Cholecystectomy [id number] [facility]
--- OUTSIDE RECORDS SUMMARY | 2017-12-04 09:52 | XMS REPORT | Summary of Care ---
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 Nausea(Confirmed) Active Pancreatitis(Confirmed) Active Pancreatitis, acute(Confirmed) Active Allergies, Adverse Reactions, Alerts Substance Reaction Severity Status Bactrim Active Compazine shakey Active Reglan shakey Active sulfa drugs Active Tape Active Medications No data available for this section Results CHEM PANEL Most recent to oldest [Reference Range]: 1 Lipase Lvl [73-393 unit/L] 243 unit/L (02/18/17 8:50 PM) Immunizations No data available for this section Procedures Procedure Date Related Diagnosis Body Site Appendectomy Bladder operation1 Cholecystectomy 1pt reports bladder was blistered Social History Social History Type Response Smoking Status Current every day smoker; Type: Cigarettes; Number of years: 6; Started at age: 37.0; Previous treatment: None; Concerns about tobacco use in household: No; Exposure to Tobacco Smoke None; Cigarette Smoking Last 365 Days No; Reg Smoking Cessation Counseling Yes Assessment and Plan No data available for this section
--- OUTSIDE RECORDS SUMMARY | 2017-12-04 09:52 | XMS REPORT | CCD ---
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 Nausea Active Pancreatitis Active Medications Medication Instructions Start Date End Date Status Zofran 4 mg, 2 mL, Route: IVP, 01/24/2012 01/24/2012 Completed Drug form: INJ, ONCE, kg, Start date: 01/24/12 10:21:00, Stop date: 01/24/12 10:21:00 Phenergan 25 mg oral 25 mg, 1 tab, PO, Q4H, 01/24/2012 Ordered tablet PRN, 15 tab, Nausea, Substitution Allowed ketorolac 30 mg, 1 mL, Route: IV, 01/24/2012 01/24/2012 Completed Drug form: INJ, ONCE, kg, Priority: STAT, Start date: 01/24/12 8:29:00, Stop date: 01/24/12 8:29:00 Phenergan + Sodium 12.5 mg, 0.5 mL, Route: 01/24/2012 01/24/2012 Completed Chloride 0.9% IV 20 mL IVP Central, Drug form: INJ, ONCE, kg, PRN Nausea & Vomiting, Start date: 01/24/12 8:27:00 Sodium Chloride 0.9% 1,000 mL, Rate: 1,000 ml/hr, Infuse over: 1 hr, Route: IV , Dosing Weight 100 kg, Total Volume: 1,000, Priority: STAT, Start date: 8:27:00, Duration: 1 doses or times, Stop date: 01/24/12 9:26:00, Bolus Dose 01/24/2012 01/24/2012 Completed (Bolus) IV 1,000 mL Bolus Dose Saline Flush 0.9% 5 ml, Route: IVP, Drug 01/24/2012 01/24/2012 Discontinued Form: INJ, kg, PRN, PRN Line Flush, Start date: 01/24/12 8:27:00, Duration: 24 hr, Stop date: 01/25/12 8:26:00 Vital Signs Most recent to oldest [Reference Range]: 1 Height 175.26 cm (01/24/2012 07:41:00) Weight 100.000 kg (01/24/2012 07:41:00) Results CHEMISTRY Most recent to oldest [Reference Range]: 1 Sodium Lvl [135-145 mEq/L] 141 mEq/L (01/24/2012 09:10:00) Potassium Lvl [3.5-5.1 mEq/L] 3.6 mEq/L (01/24/2012 09:10:00) Chloride Lvl [95-109 mEq/L] 108 mEq/L (01/24/2012 09:10:00) CO2 [24-32 mEq/L] 25 mEq/L (01/24/2012 09:10:00) AGAP [10.0-20.0 mEq/L] 11.6 mEq/L (01/24/2012 09:10:00) Creatinine Lvl [0.5-1.4 mg/dL] 1.0 mg/dL (01/24/2012 09:10:00) BUN [7-22 mg/dL] 10 mg/dL (01/24/2012 09:10:00) B/C Ratio [6-25] 10 (01/24/2012 09:10:00) Glucose Lvl [70-99 mg/dL] 86 mg/dL 1 (01/24/2012 09:10:00) Total Protein [6.4-8.4 g/dL] 6.8 g/dL (01/24/2012 09:10:00) Albumin Lvl [3.5-5.0 g/dL] 3.6 g/dL (01/24/2012 09:10:00) Globulin [2.0-4.0 g/dL] 3.2 g/dL (01/24/2012 09:10:00) A/G Ratio [0.7-1.6] 1.1 (01/24/2012 09:10:00) Calcium Lvl [8.5-10.5 mg/dL] 8.4 mg/dL *LOW* (01/24/2012 09:10:00) ALT [0-65 unit/L] 29 unit/L (01/24/2012 09:10:00) AST [0-37 unit/L] 10 unit/L (01/24/2012 09:10:00) Alk Phos [39-136 unit/L] 53 unit/L (01/24/2012 09:10:00) Bili Total [0.2-1.3 mg/dL] 0.2 mg/dL (01/24/2012 09:10:00) Lipase Lvl [73-393 unit/L] 218 unit/L (01/24/2012 09:10:00) 1Interpretive Data: Adult reference range values reflect the clinical guidelines of the [place] [employer].HEMATOLOGY Most recent to oldest [Reference Range]: 1 WBC [3.7-10.4 K/CMM] 4.1 K/CMM (01/24/2012 09:10:00) RBC [4.70-6.10 M/CMM] 4.10 M/CMM *LOW* (01/24/2012 09:10:00) Hgb [14.0-18.0 g/dL] 11.8 g/dL *LOW* (01/24/2012 09:10:00) Hct [42.0-54.0 %] 35.2 % *LOW* (01/24/2012 09:10:00) MCV [80.0-94.0 fL] 85.8 fL (01/24/2012 09:10:00) MCH [27.0-31.0 pg] 28.7 pg (01/24/2012 09:10:00) MCHC [32.0-36.0 g/dL] 33.5 g/dL (01/24/2012 09:10:00) RDW [11.5-14.5 %] 14.9 % *HI* (01/24/2012 09:10:00) Platelet [133-450 K/CMM] 247 K/CMM (01/24/2012 09:10:00) MPV [7.4-10.4 fL] 8.6 fL (01/24/2012 09:10:00) Segs [45.0-75.0 %] 58.4 % (01/24/2012 09:10:00) Lymphocytes [20.0-40.0 %] 25.2 % (01/24/2012 09:10:00) Monocytes [2.0-12.0 %] 10.4 % (01/24/2012 09:10:00) Eosinophils [0.0-4.0 %] 5.8 % *HI* (01/24/2012 09:10:00) Basophils [0.0-1.0 %] 0.2 % (01/24/2012 09:10:00) Segs-Bands # [1.5-8.1 K/CMM] 2.4 K/CMM (01/24/2012 09:10:00) Lymphocytes # [1.0-5.5 K/CMM] 1.0 K/CMM (01/24/2012 09:10:00) Monocytes # [0.0-0.8 K/CMM] 0.4 K/CMM (01/24/2012 09:10:00) Eosinophils # [0.0-0.5 K/CMM] 0.2 K/CMM (01/24/2012 09:10:00) Basophils # [0.0-0.2 K/CMM] 0.0 K/CMM (01/24/2012 09:10:00)
--- OUTSIDE RECORDS SUMMARY | 2017-12-04 09:53 | XMS REPORT | Summary of Care ---
:1970 Author Encounter LORENA Brandon(MALORIE) [id number] Date(s): 01/04/14 - 01/04/14 [facility] [address] Discharge Diagnosis: Abdominal pain Discharge Disposition: Home Physician Attending: Samir Francis MD Reason for Visit ABDOMINAL PAIN Vital Signs Most recent to oldest 1 2 3 [Reference Range]: Height 175.26 cm (01/04/14 8:32 AM) Temperature Oral [96.4-99.1 98.4 DegF DegF] (01/04/14 8:32 AM) Systolic Blood Pressure 114 mmHg 115 mmHg 136 mmHg [90-140 mmHg] (01/04/14 11:30 AM) (01/04/14 10:30 AM) (01/04/14 8:32 AM) Diastolic Blood Pressure 69 mmHg 68 mmHg 81 mmHg [60-90 mmHg] (01/04/14 11:30 AM) (01/04/14 10:30 AM) (01/04/14 8:32 AM) Respiratory Rate [14-20 18 BRMIN 18 BRMIN 18 BRMIN BRMIN] (01/04/14 11:30 AM) (01/04/14 10:30 AM) (01/04/14 9:15 AM) Peripheral Pulse Rate [60-100 83 bpm 91 bpm 144 bpm bpm] (01/04/14 10:30 AM) (01/04/14 9:15 AM) *HI* (01/04/14 8:32 AM) Weight 100 kg (01/04/14 8:32 AM) Body Mass Index 32.56 m2 (01/04/14 8:32 AM) Problem List Condition Effective Dates Status Health Status Informant Abdominal pain(Confirmed) Active Anxiety(Confirmed) Active Depression(Confirmed) Active 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 Nausea(Confirmed) Active Pancreatitis(Confirmed) Active Pancreatitis, acute(Confirmed) Resolved Allergies, Adverse Reactions, Alerts Substance Reaction Severity Status Compazine shakey Active Reglan shakey Active sulfa drugs Active Tape Active Medications Bentyl 20 mg oral tablet 20 mg=1 tab, PO, QID, abdominal pain, # 30 tab, 0 Refill(s) Start Date: 01/04/14 Status: OrderedBentyl 20 mg oral tablet 20 mg=1 tab, PO, QID, abdominal pain, # 30 tab, 0 Refill(s) Start Date: 01/04/14 Status: OrderedDilaudid 0.5 mg, Route: IV, ONCE, Dosing Weight 100, kg, Priority: STAT, Start date: 14:28:00, Stop date: 01/04/14 14:28:00 Start Date: 01/04/14 Stop Date: 01/04/14 Status: Completedhydromorphone 0.5 mg, 0.5 mL, Route: IVP, Drug form: INJ, ONCE, Dosing Weight 100, kg, Priority: STAT, Start date:01/04/14 11:44:00, Stop date: 01/04/14 11:44:00 Start Date: 01/04/14 Stop Date: 01/04/14 Status: Completedhydromorphone 0.5 mg, 0.5 mL, Route: IVP, Drug form: INJ, ONCE, Dosing Weight 100, kg, Priority: STAT, Start date:01/04/14 14:00:00, Stop date: 01/04/14 14:00:00 Start Date: 01/04/14 Stop Date: 01/04/14 Status: OrderedLORazepam 1 mg, 0.5 mL, Route: IVP, Drug form: INJ, ONCE, Dosing Weight 100, kg, Priority : STAT, Start date: 01/04/14 11:44:00, Stop date: 01/04/14 11:44:00 Notes: (Same as: Ativan) Start Date: 01/04/14 Stop Date: 01/04/14 Status: Completedondansetron 4 mg, 2 mL, Route: IVP, Drug form: INJ, ONCE, Dosing Weight 100, kg, Priority: STAT, Start date: 01/04/14 11:44:00, Stop date: 01/04/14 11:44:00 Notes: (Same as: Zofran) Start Date: 01/04/14 Stop Date: 01/04/14 Status: CompletedSodium Chloride 0.9% (Bolus) IV 1,000 mL, 1,000 ml/hr, Infuse Over: 1 hr, Route: IV, 1,000, Drug form: INJ, ONCE , Priority: STAT, Dosing Weight 100 kg, Start date: 01/04/14 11:44:00, Duration : 1 doses or times, Stop date: 01/04/14 11:44:00 Start Date: 01/04/14 Stop Date: 01/04/14 Status: CompletedZofran 4 mg, Route: IVP, Drug form: INJ, ONCE, Dosing Weight 100, kg, Priority: STAT, Start date: 01/04/14 9:52:00, Stop date: 01/04/14 9:52:00 Start Date: 01/04/14 Stop Date: 01/04/14 Status: CompletedZofran 4 mg, Route: IVP, Drug form: INJ, ONCE, Dosing Weight 100, kg, Priority: STAT, Start date: 01/04/14 14:27:00, Stop date: 01/04/14 14:27:00 Start Date: 01/04/14 Stop Date: 01/04/14 Status: CompletedZofran ODT 4 mg oral tablet, disintegrating 4 mg=1 tab, PO, Q8H, Nausea and Vomiting, Dissolve tab under tongue, # 10 tab, 0 Refill(s) Special Instructions: Dissolve tab under tongue Start Date: 01/04/14 Status: Ordered Results ELECTROLYTES Most recent to oldest [Reference Range]: 1 Sodium Lvl [135-145 mEq/L] 140 mEq/L (01/04/14 9:00 AM) Potassium Lvl [3.5-5.1 mEq/L] 3.4 mEq/L *LOW* (01/04/14 9:00 AM) Chloride Lvl [95-109 mEq/L] 104 mEq/L (01/04/14 9:00 AM) CO2 [24-32 mEq/L] 28 mEq/L (01/04/14 9:00 AM) AGAP [10.0-20.0 mEq/L] 11.4 mEq/L (01/04/14 9:00 AM) CHEM PANEL Most recent to oldest [Reference Range]: 1 Creatinine Lvl [0.5-1.4 mg/dL] 1.2 mg/dL (01/04/14 9:00 AM) eGFR 74 mL/min/1.73m2 1 *NA* (01/04/14 9:00 AM) BUN [7-22 mg/dL] 6 mg/dL *LOW* (01/04/14 9:00 AM) B/C Ratio [6-25] 5 *LOW* (01/04/14 9:00 AM) Glucose Lvl [70-99 mg/dL] 91 mg/dL 2 (01/04/14 9:00 AM) Total Protein [6.4-8.4 g/dL] 7.6 g/dL (01/04/14 9:00 AM) Albumin Lvl [3.5-5.0 g/dL] 4.1 g/dL (01/04/14 9:00 AM) Globulin [2.0-4.0 g/dL] 3.5 g/dL (01/04/14 9:00 AM) A/G Ratio [0.7-1.6] 1.2 (01/04/14 9:00 AM) Calcium Lvl [8.5-10.5 mg/dL] 9.5 mg/dL (01/04/14 9:00 AM) ALT [0-65 unit/L] 18 unit/L (01/04/14 9:00 AM) AST [0-37 unit/L] 13 unit/L (01/04/14 9:00 AM) Alk Phos [39-136 unit/L] 74 unit/L (01/04/14 9:00 AM) Bili Total [0.2-1.3 mg/dL] 0.3 mg/dL (01/04/14 9:00 AM) Amylase Lvl [25-115 unit/L] 57 unit/L (01/04/14 9:00 AM) Lipase Lvl [73-393 unit/L] 193 unit/L (01/04/14 9:00 AM) 1Result Comment: The eGFR is calculated using the CKD-EPI formula. In most young , healthy individualsthe eGFR will be >90 mL/min/1.73m2. The eGFR declines with age. An eGFR of 60-89 may be normal in some populations, particularly the elderly, for whom the CKD-EPI formula has not been extensively validated. Use of the eGFR is not recommended in the following populations: Individuals with unstable creatinine concentrations, including patients and those with serious co-morbid conditions. Patients with extremes in muscle mass or diet. The data above are obtained from the National Kidney Disease Education Program ( NKDEP) which additionally recommends that when the eGFR is used in patients with extremes of body mass index for purposesof drug dosing, the eGFR should be multiplied by the estimated BMI.2Interpretive Data: Adult reference range values reflect the clinical guidelines of the [place] [employer].URINE AND STOOL Most recent to oldest [Reference Range]: 1 UA Turbidity [Clear] Clear (01/04/14 9:00 AM) UA Color [Yellow] Yellow *NA* (01/04/14 9:00 AM) UA pH [5.0-8.0] 7.5 (01/04/14 9:00 AM) UA Spec Grav [<=1.030] <=1.005 *NA* (01/04/14 9:00 AM) UA Glucose [Negative] Negative (01/04/14 9:00 AM) UA Blood [Negative] Negative (01/04/14 9:00 AM) UA Ketones [Negative] Negative *NA* (01/04/14 9:00 AM) UA Protein [Negative] Negative (01/04/14 9:00 AM) UA Urobilinogen [0.1-1.0 EU/dL] 0.2 EU/dL (01/04/14 9:00 AM) UA Bili [Negative] Negative *NA* (01/04/14 9:00 AM) UA Leuk Est [Negative] Negative (01/04/14 9:00 AM) UA Nitrite [Negative] Negative (01/04/14 9:00 AM) UA Bacteria [None Seen /HPF] Occasional /HPF *NA* (01/04/14 9:00 AM) UA Sq Epi [Few /LPF] Occasional /LPF *NA* (01/04/14 9:00 AM) Occult Bld Stl [Negative] Negative (01/04/14 11:41 AM) HEMATOLOGY Most recent to oldest [Reference Range]: 1 WBC [3.7-10.4 K/CMM] 10.0 K/CMM (01/04/14 9:00 AM) RBC [4.70-6.10 M/CMM] 4.89 M/CMM (01/04/14 9:00 AM) Hgb [14.0-18.0 g/dL] 14.4 g/dL (01/04/14 9:00 AM) Hct [42.0-54.0 %] 43.3 % (01/04/14 9:00 AM) MCV [80.0-94.0 fL] 88.6 fL (01/04/14 9:00 AM) MCH [27.0-31.0 pg] 29.5 pg (01/04/14 9:00 AM) MCHC [32.0-36.0 g/dL] 33.3 g/dL (01/04/14 9:00 AM) RDW [11.5-14.5 %] 13.5 % (01/04/14 9:00 AM) Platelet [133-450 K/CMM] 231 K/CMM (01/04/14 9:00 AM) MPV [7.4-10.4 fL] 8.9 fL (01/04/14 9:00 AM) Segs [45.0-75.0 %] 77.0 % *HI* (01/04/14 9:00 AM) Lymphocytes [20.0-40.0 %] 13.4 % *LOW* (01/04/14 9:00 AM) Monocytes [2.0-12.0 %] 7.3 % (01/04/14 9:00 AM) Eosinophils [0.0-4.0 %] 1.6 % (01/04/14 9:00 AM) Basophils [0.0-1.0 %] 0.7 % (01/04/14 9:00 AM) Segs-Bands # [1.5-8.1 K/CMM] 7.7 K/CMM (01/04/14 9:00 AM) Lymphocytes # [1.0-5.5 K/CMM] 1.3 K/CMM (01/04/14 9:00 AM) Monocytes # [0.0-0.8 K/CMM] 0.7 K/CMM (01/04/14 9:00 AM) Eosinophils # [0.0-0.5 K/CMM] 0.2 K/CMM (01/04/14 9:00 AM) Basophils # [0.0-0.2 K/CMM] 0.1 K/CMM (01/04/14 9:00 AM) Medications Administered During Your Visit No data available for this section Immunizations No data available for this section Procedures Procedure Type Body Site Date of Procedure Related Diagnosis Appendectomy Bladder operation1 Cholecystectomy 1pt reports bladder was blistered Social History Social History Type Response
--- OUTSIDE RECORDS SUMMARY | 2017-12-04 09:53 | XMS REPORT | Summary of Care ---
:1970 Author Organization [facility] Address [address], [place] [address]- Encounter HQ Encntr_alierika(FIN) [id number] Date(s): 07/09/16 - 07/10/[address] [address]- Discharge Diagnosis: Generalized abdominal pain Discharge Disposition: Home or Self Care Attending Physician: Coy Burt MD Vital Signs Most recent to oldest 1 2 3 [Reference Range]: Temperature Oral [96.4-99.1 98.7 DegF 99.0 DegF DegF] (07/10/16 1:02 AM) (07/09/16 8:18 PM) Blood Pressure [90-140/60-90 122/82 mmHg 114/87 mmHg 134/95 mmHg mmHg] (07/10/16 1:02 AM) (07/09/16 11:11 PM) (07/09/16 10:21 PM) Respiratory Rate [14-20 15 BRMIN 18 BRMIN 18 BRMIN BRMIN] (07/10/16 1:02 AM) (07/09/16 11:11 PM) (07/09/16 10:21 PM) Peripheral Pulse Rate [60-100 86 bpm 87 bpm 98 bpm bpm] (07/10/16 1:02 AM) (07/09/16 11:11 PM) (07/09/16 10:21 PM) Weight 90.909 kg (07/09/16 8:18 PM) Problem List Condition Effective Dates Status Health Status Informant Abdominal pain(Confirmed) Active Anxiety(Confirmed) Active Anxiety depression(Confirmed) Active Depression(Confirmed) Active 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 Nausea(Confirmed) Active Pancreatitis(Confirmed) Active Pancreatitis, acute(Confirmed) Active Allergies, Adverse Reactions, Alerts Substance Reaction Severity Status Bactrim Active Compazine shakey Active Reglan shakey Active sulfa drugs Active Tape Active Medications Bentyl 20 mg, Route: IM, ONCE, Dosing Weight 90.909, kg, Start date: 07/09/16 22:50:00 [employer], Stop date: 07/09/16 22:50:00 [employer] Start Date: 07/09/16 Stop Date: 07/09/16 Status: Completedmorphine Sulfate 2 mg, Route: IVP, ONCE, Dosing Weight 90.909, kg, Priority: STAT, Start date: 0:15:00 [employer], Stop date: 07/10/16 0:15:00 [employer] Start Date: 07/10/16 Stop Date: 07/10/16 Status: Completedmorphine Sulfate 4 mg, 1 mL, Route: IVP, Drug form: SOLN, ONCE, Dosing Weight 90.909, kg, Priority: STAT, Start date:07/09/16 22:05:00 [employer], Stop date: 07/09/16 22:05:00 [employer] Notes: (Same as:MORPhine Sulfate) Start Date: 07/09/16 Stop Date: 07/09/16 Status: CompletedNS (Bolus) IV 1,000 mL, 1,000 ml/hr, Infuse Over: 1 hr, Route: IV, ONCE, Priority: STAT, Dosing Weight 90.909 kg, Start date: 07/09/16 22:04:00 [employer], Duration: 1 doses or times, Stop date: 07/09/16 22:04:00 [employer] Start Date: 07/09/16 Stop Date: 07/09/16 Status: DiscontinuedNS (Bolus) IV 1,000 mL, 1,000 ml/hr, Infuse Over: 1 hr, Route: IV, 1,000, Drug form: INJ, ONCE , Priority: STAT, Dosing Weight 90.909 kg, Start date: 07/09/16 21:47:00 [employer], Duration: 1 doses or times, Stop date: 07/09/16 21:47:00 [employer] Start Date: 07/09/16 Stop Date: 07/09/16 Status: CompletedPhenergan 12.5 mg, Route: IM, ONCE, Dosing Weight 90.909, kg, Priority: STAT, Start date: 07/10/16 0:14:00 [employer], Stop date: 07/10/16 0:14:00 [employer] Start Date: 07/10/16 Stop Date: 07/10/16 Status: CompletedZofran 4 mg, Route: IVP, Drug form: INJ, ONCE, Dosing Weight 90.909, kg, Priority: STAT , Start date: 07/09/16 23:36:00 [employer], Stop date: 07/09/16 23:36:00 [employer] Start Date: 07/09/16 Stop Date: 07/09/16 Status: CompletedZofran 4 mg, 2 mL, Route: IVP, Drug form: INJ, ONCE, Dosing Weight 90.909, kg, Priority : STAT, Start date: 07/09/16 21:47:00 [employer], Stop date: 07/09/16 21:47:00 [employer] Notes: (Same as: Zofran) MEDICATION WASTE Product Size: 4 mgProduct Wasted: ___ mg Start Date: 07/09/16 Stop Date: 07/09/16 Status: Completed Results ELECTROLYTES Most recent to oldest [Reference Range]: 1 Sodium Lvl [135-145 mEq/L] 138 mEq/L (07/09/16 9:48 PM) Potassium Lvl [3.5-5.1 mEq/L] 4.1 mEq/L (07/09/16 9:48 PM) Chloride Lvl [95-109 mEq/L] 104 mEq/L (07/09/16 9:48 PM) CO2 [24-32 mEq/L] 27 mEq/L (07/09/16 9:48 PM) AGAP [10.0-20.0 mEq/L] 11.1 mEq/L (07/09/16 9:48 PM) CHEM PANEL Most recent to oldest [Reference Range]: 1 Creatinine Lvl [0.50-1.40 mg/dL] 1.15 mg/dL (07/09/16 9:48 PM) eGFR 77 mL/min/1.73m2 1 *NA* (07/09/16 9:48 PM) BUN [7-22 mg/dL] 9 mg/dL (07/09/16 9:48 PM) B/C Ratio [6-25] 8 (07/09/16 9:48 PM) Glucose Lvl [70-99 mg/dL] 97 mg/dL (07/09/16 9:48 PM) Total Protein [6.4-8.4 g/dL] 7.1 g/dL (07/09/16 9:48 PM) Albumin Lvl [3.5-5.0 g/dL] 3.9 g/dL (07/09/16 9:48 PM) Globulin [2.7-4.2 g/dL] 3.2 g/dL (07/09/16 9:48 PM) A/G Ratio [0.7-1.6] 1.2 (07/09/16 9:48 PM) Calcium Lvl [8.5-10.5 mg/dL] 8.8 mg/dL (07/09/16 9:48 PM) ALT [0-65 unit/L] 25 unit/L (07/09/16 9:48 PM) AST [0-37 unit/L] 12 unit/L (07/09/16 9:48 PM) Alk Phos [39-136 unit/L] 53 unit/L (07/09/16 9:48 PM) Bili Total [0.2-1.3 mg/dL] 0.3 mg/dL (07/09/16 9:48 PM) Lipase Lvl [73-393 unit/L] 336 unit/L (07/09/16 9:48 PM) 1Result Comment: The eGFR is calculated using [...] eGFR should be multiplied by the estimated BMI.CARDIAC ENZYMES Most recent to oldest [Reference Range]: 1 CK MB [0.5-3.6 ng/mL] <0.5 ng/mL (07/09/16 9:48 PM) Troponin-I [0.00-0.40 ng/mL] <0.02 ng/mL (07/09/16 9:48 PM) URINE AND STOOL Most recent to oldest [Reference Range]: 1 UA Turbidity [Clear] Clear (07/09/16 8:42 PM) UA Color [Yellow] Light Yellow *NA* (07/09/16 8:42 PM) UA pH [5.0-8.0] 7.0 (07/09/16 8:42 PM) UA Spec Grav [<=1.030] 1.003 (07/09/16 8:42 PM) UA Glucose [Negative mg/dL] Negative mg/dL *NA* (07/09/16 8:42 PM) UA Blood [Negative] Small *ABN* (07/09/16 8:42 PM) UA Ketones [Negative mg/dL] Negative mg/dL *NA* (07/09/16 8:42 PM) UA Protein [Negative mg/dL] Negative mg/dL (07/09/16 8:42 PM) UA Urobilinogen [0.1-1.0 mg/dL] <=1.0 mg/dL *NA* (07/09/16 8:42 PM) UA Bili [Negative] Negative *NA* (07/09/16 8:42 PM) UA Leuk Est [Negative] Negative (07/09/16 8:42 PM) UA Nitrite [Negative] Negative (07/09/16 8:42 PM) UA WBC [0-5 /HPF] <1 /HPF (07/09/16 8:42 PM) UA RBC [0-2 /HPF] <1 /HPF (07/09/16 8:42 PM) UA Sq Epi [Few /LPF] Few /LPF *NA* (07/09/16 8:42 PM) HEMATOLOGY Most recent to oldest [Reference Range]: 1 WBC [3.7-10.4 K/CMM] 8.7 K/CMM (07/09/16 9:48 PM) RBC [4.70-6.10 M/CMM] 4.57 M/CMM *LOW* (07/09/16 9:48 PM) Hgb [14.0-18.0 g/dL] 13.9 g/dL *LOW* (07/09/16 9:48 PM) Hct [42.0-54.0 %] 41.7 % *LOW* (07/09/16 9:48 PM) MCV [80.0-94.0 fL] 91.2 fL (07/09/16 9:48 PM) MCH [27.0-31.0 pg] 30.4 pg (07/09/16 9:48 PM) MCHC [32.0-36.0 g/dL] 33.4 g/dL (07/09/16 9:48 PM) RDW [11.5-14.5 %] 13.2 % (07/09/16 9:48 PM) Platelet [133-450 K/CMM] 235 K/CMM (07/09/16 9:48 PM) MPV [7.4-10.4 fL] 8.1 fL (07/09/16 9:48 PM) Segs [45.0-75.0 %] 72.9 % (07/09/16 9:48 PM) Lymphocytes [20.0-40.0 %] 18.8 % *LOW* (07/09/16 9:48 PM) Monocytes [2.0-12.0 %] 6.0 % (07/09/16 9:48 PM) Eosinophils [0.0-4.0 %] 1.8 % (07/09/16 9:48 PM) Basophils [0.0-1.0 %] 0.5 % (07/09/16 9:48 PM) Segs-Bands # [1.5-8.1 K/CMM] 6.4 K/CMM (07/09/16 9:48 PM) Lymphocytes # [1.0-5.5 K/CMM] 1.6 K/CMM (07/09/16 9:48 PM) Monocytes # [0.0-0.8 K/CMM] 0.5 K/CMM (07/09/16 9:48 PM) Eosinophils # [0.0-0.5 K/CMM] 0.2 K/CMM (07/09/16 9:48 PM) Basophils # [0.0-0.2 K/CMM] 0.0 K/CMM (07/09/16 9:48 PM) Immunizations No data available for this [...]
--- OUTSIDE RECORDS SUMMARY | 2017-12-04 09:53 | XMS REPORT ---
:1970 Author Organization [facility] Care Team Providers Name Role Prachi Elder Provider Role Unavailable Allergies, Adverse Reactions, Alerts Substance Reaction Event Type Compazine anxious Drug Allergy Reglan anxious Drug Allergy Lisinopril abd pain Drug Allergy Encounters Encounter Location Date Initial visit Prachi Guzmán MD Apr 19, 2014 Problems Problem Type Condition ICD-9 Code Onset Dates Condition Status Assessment Bipolar disorder, unspecified 296.80 Active Assessment Tension headache 307.81 Active Assessment GERD -Esophageal reflux 530.81 Active Assessment Chronic pancreatitis 577.1 Active Assessment Allergic rhinitis 477.9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 Tension headache 307.81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 GERD -Esophageal reflux 530.81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 Hypertension 401.9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 Chronic pancreatitis 577.1 Active Assessment Hypertension 401.9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 Bipolar disorder, unspecified 296.80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 Allergic rhinitis 477.9 Active Medications Medication Code System Code Instructions Start End Status Dosage Date Date Topiramate MEDISPAN 20636-34 25 MG Orally Apr 19, Active 1 tablet 55-06 twice a day 2013 (bid) Seroquel MEDISPAN 20327-19 50 mg Orally Active 1 tablet 78-10 Once a day at bedtime Lisinopril MEDISPAN 84893-14 20 MG Orally Inactive 1 tablet 68-01 Once a day Clonidine HCl MEDISPAN 72455-47 0.1 MG Orally Apr 19, Active 1 tablet 27-10 twice a day 2013 at bedtime (bid) Tramadol HCl MEDISPAN 61873-89 50 mg Orally May 19, Active 1 or 2 58-01 every 6 hrs for 2013 tablet headache Xanax MEDISPAN 69534-49 2 MG Orally Active 1/2 tablet 94-01 three times a in am and day (tid) noon, 1 tablet at bedtime Singulair MEDISPAN 15691-29 10 MG Orally Active 1 tablet 17-01 Once a day in the evening Protonix MEDISPAN 95319-75 40 mg Orally Active 1 tablet 41-81 once a day Cymbalta MEDISPAN 14015-48 90 Orally Once a Active 1 capsule 40-01 day [facility] 58599-23 250 Orally once Active 1 tablet 99-00 every night Social History Social History Element Qualifiers Date Reported Do you take aspirin or a blood . GROVERTosha Garcia 04/19/2014 Apr 19, 2014 thinner drug? 3:57:10 PM > Tobacco Use: . Are you a: current smoker, How Apr 19, 2014 much do you smoke? 1 pack a day, For how many years have you smoked? 4-6 years Marital Status: . SingleThaTosha baumann 04/19/2014 Apr 19, 2014 3:56:57 PM > Do you exercise? . Status: Yes, What type: Coffee, Apr 19, 2014 Soft Drinks, Chocolate, Energy Drinks Vital Signs Date/Time: Apr 19, 2014 Weight 195.2 lbs Height 68.6 in Temperature 98.6 F Cardiac Monitoring Heart Rate 95 /min Blood Pressure Diastolic 95 mm Hg Blood Pressure Systolic 136 mm Hg Respiratory Rate 18 /min Summary Purpose eClinicalWorks Submission
--- OUTSIDE RECORDS SUMMARY | 2017-12-04 09:53 | XMS REPORT | Summary of Care ---
:1970 Author Encounter LORENA Brandon(MALORIE) [id number] Date(s): 05/13/14 - 05/14/14 [facility] [place] [facility] [address] Discharge Disposition: Home Physician Attending: Prachi Guzmán MD Physician Admitting: Prachi Guzmán MD Reason for Visit ABD PAIN, POSSIBLE ACUTE DIVERTICULITIS Vital Signs Most recent to oldest 1 2 3 [Reference Range]: Height 175.26 cm 175.26 cm (05/13/14 5:52 PM) (05/13/14 5:43 PM) Temperature Oral [96.4-99.1 98.4 DegF 97.8 DegF 97.9 DegF DegF] (05/14/14 3:58 PM) (05/14/14 11:57 AM) (05/14/14 8:07 AM) Systolic Blood Pressure 105 mmHg 100 mmHg 100 mmHg [90-140 mmHg] (05/14/14 3:58 PM) (05/14/14 11:57 AM) (05/14/14 8:07 AM) Diastolic Blood Pressure 72 mmHg 63 mmHg 67 mmHg [60-90 mmHg] (05/14/14 3:58 PM) (05/14/14 11:57 AM) (05/14/14 8:07 AM) Respiratory Rate [14-20 BRMIN] 18 BRMIN 18 BRMIN 17 BRMIN (05/14/14 3:58 PM) (05/14/14 11:57 AM) (05/14/14 8:07 AM) Peripheral Pulse Rate [60-100 84 bpm 75 bpm 66 bpm bpm] (05/14/14 3:58 PM) (05/14/14 11:57 AM) (05/14/14 8:07 AM) Weight 100 kg 100 kg (05/13/14 5:52 PM) (05/13/14 5:43 PM) Body Mass Index 32.56 m2 32.56 m2 (05/13/14 5:52 PM) (05/13/14 5:43 PM) Problem List Condition Effective Dates Status Health Status Informant Abdominal pain(Confirmed) Active Anxiety(Confirmed) Active Anxiety depression(Confirmed) Resolved Depression(Confirmed) Active 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 Nausea(Confirmed) Active Pancreatitis(Confirmed) Active Pancreatitis, acute(Confirmed) Resolved Allergies, Adverse Reactions, Alerts Substance Reaction Severity Status Compazine shakey Active Reglan shakey Active sulfa drugs Active Tape Active Medications Bentyl 20 mg, 1 tab, Route: PO, Drug form: TAB, QID, Dosing Weight 100, kg, PRN Other - See Comment, Start date: 05/13/14 18:50:00, Stop date: 06/12/14 18:49:00, abdominal pain Notes: (Same as: Bentyl) Start Date: 05/13/14 Stop Date: 05/14/14 Status: DiscontinuedCipro 400 mg, 200 mL, Route: IVPB, Drug form: INJ, [id number], Start date: 05/13/14 21:00 :00, Duration: 30 day, Stop date: 06/12/14 9:00:00 Notes: Do not refrigerate Start Date: 05/13/14 Stop Date: 05/14/14 Status: DiscontinuedcloNIDine 0.1 mg oral tablet 0.1 mg, 1 tab, Route: PO, Drug form: TAB, BID, Dosing Weight 100, kg, Start date : 05/14/14 9:00:00, Duration: 30 day, Stop date: 06/12/14 17:00:00 Notes: (Same As: Catapres) Start Date: 05/14/14 Stop Date: 05/14/14 Status: DiscontinuedcloNIDine 0.1 mg oral tablet 0.1 mg, PO, BID, # 60 tab, 0 Refill(s) Start Date: 05/13/14 Status: OrderedCymbalta 60 mg oral delayed release capsule 90 mg, PO, Daily, # 30 cap, 0 Refill(s) Start Date: 05/13/14 Status: OrderedDULoxetine 90 mg, 3 cap, Route: PO, Drug form: DRC, Daily, Dosing Weight 100, kg, Start date: 05/14/14 9:00:00,Duration: 30 day, Stop date: 06/12/14 9:00:00 Notes: (Same as: Cymbalta) (Do Not Crush) Start Date: 05/14/14 Stop Date: 05/14/14 Status: DiscontinuedFlagyl 500 mg, 100 mL, Route: IVPB, Drug form: INJ, ABXQ8H, Start date: 05/13/14 22:00: 00, Duration: 30 day, Stop date: 06/12/14 14:00:00 Notes: (Same as: Flagyl) Avoid alcohol. Start Date: 05/13/14 Stop Date: 05/14/14 Status: Discontinuedlactulose 10 g/15 mL oral syrup 20 gm=30 ml, PO, TID, constipation, # 1,000 mL, 0 Refill(s) Start Date: 05/14/14 Status: Orderedlactulose 10 g/15 mL oral syrup 30 gm, 45 mL, Route: PO, Drug Form: SYRP, Dosing Weight 100, kg, Daily, NOW, Start date: 05/14/14 12:30:00, Duration: 30 day, Stop date: 06/13/14 9:00:00 Notes: (Same as:Chronulac) Start Date: 05/14/14 Stop Date: 05/14/14 Status: DiscontinuedLaMICtal 250 mg, PO, Daily, 0 Refill(s) Start Date: 05/13/14 Status: OrderedLaMICtal 250 mg, 2.5 tab, Route: PO, Drug form: TAB, Daily, Dosing Weight 100, kg, Start date: 05/13/14 21:00:00, Duration: 30 day, Stop date: 06/11/14 21:00:00 Notes: (Same as:LaMICtal) Start Date: 05/13/14 Stop Date: 05/14/14 Status: Discontinuedmorphine Sulfate 4 mg, 2 mL, Route: IV, Drug form: INJ, Q4H, PRN Pain Score 6-10, Start date: 09/21 21:00:00, Duration: 30 day, Stop date: 06/12/14 20:59:00 Notes: (Same as:MORPhine Sulfate) Start Date: 05/13/14 Stop Date: 05/14/14 Status: Discontinuedpantoprazole 40 mg, 1 tab, Route: PO, Drug form: ECTAB, Before Dinner, Dosing Weight 100, kg , Start date: 05/14/14 16:30:00, Duration: 30 day, Stop date: 06/12/14 16:30:00 Notes: Tablet should not be chewed or crushed.(Same as: Protonix) Start Date: 05/14/14 Stop Date: 05/14/14 Status: DiscontinuedProtonix 40 mg oral granule =1 Pack, PO, Daily, # 30 ea, 0 Refill(s) Start Date: 05/13/14 Status: OrderedSEROquel 50 mg, 2 tab, Route: PO, Drug form: TAB, Bedtime, Dosing Weight 100, kg, Start date: 05/13/14 21:00:00, Duration: 30 day, Stop date: 06/11/14 21:00:00 Notes: (Same as: SEROquel) Start Date: 05/13/14 Stop Date: 05/14/14 Status: DiscontinuedSEROquel 50 mg oral tablet 50 mg=1 tab, PO, Bedtime, # 180 tab, 0 Refill(s) Start Date: 05/13/14 Status: OrderedSingulair 10 mg, 1 tab, Route: PO, Drug form: TAB, Bedtime, Dosing Weight 100, kg, Start date: 05/13/14 21:00:00, Duration: 30 day, Stop date: 06/11/14 21:00:00 Notes: (Same as:Singulair) Start Date: 05/13/14 Stop Date: 05/14/14 Status: DiscontinuedSingulair 10 mg oral tablet 10 mg=1 tab, PO, Bedtime, # 30 tab, 0 Refill(s) Start Date: 05/13/14 Status: OrderedSodium Chloride 0.45% IV 1,000 mL 1,000 mL, Rate: 125 ml/hr, Infuse over: 8 hr, Route: IV, Dosing Weight 100 kg, Total Volume: 1,000, Start date: 05/13/14 21:00:00, Duration: 30 day, Stop date : 06/12/14 20:59:00 Start Date: 05/13/14 Stop Date: 05/14/14 Status: Discontinuedtopiramate 25 mg, 1 tab, Route: PO, Drug form: TAB, BID, Dosing Weight 100, kg, Start date : 05/14/14 9:00:00, Duration: 30 day, Stop date: 06/12/14 17:00:00 Notes: (Same As: Topamax)"Do Not Crush" Start Date: 05/14/14 Stop Date: 05/14/14 Status: Discontinuedtopiramate 25 mg, 1 tab, Route: PO, Drug form: TAB, Bedtime, Dosing Weight 100, kg, Start date: 05/14/14 21:00:00, Duration: 30 day, Stop date: 06/12/14 21:00:00 Notes: (Same As: Topamax)"Do Not Crush" Start Date: 05/14/14 Stop Date: 05/14/14 Status: Canceledtopiramate 25 mg oral capsule 25 mg=1 cap, PO, BID, 0 Refill(s) Start Date: 05/13/14 Status: Orderedtramadol 50 mg oral tablet 50 mg, 1 tab, Route: PO, Drug form: TAB, Q6H, Dosing Weight 100, kg, PRN Headache, Start date: 05/13/14 18:52:00, Stop date: 05/23/14 17:21:00 Notes: Not to exceed 400mg/day. (Same As: Ultram) Start Date: 05/13/14 Stop Date: 05/14/14 Status: Discontinuedtramadol 50 mg oral tablet 50 mg=1 tab, PO, Q6H, Pain, # 40 tab, 0 Refill(s) Start Date: 05/13/14 Stop Date: 05/23/14 Status: OrderedXanax 2 mg oral tablet 2 mg, 2 tab, Route: PO, Drug form: TAB, BID, Dosing Weight 100, kg, Start date: 05/13/14 21:30:00, Duration: 30 day, Stop date: 06/12/14 21:00:00 Notes: With food or milk(Same as: Xanax) Start Date: 05/13/14 Stop Date: 05/14/14 Status: DiscontinuedXanax 2 mg oral tablet 2 mg, PO, BID, 0 Refill(s) Start Date: 05/13/14 Status: OrderedZofran 4 mg, 2 mL, Route: IVP, Drug form: INJ, Q6H, PRN Nausea, Start date: 05/13/14 21 :01:00, Duration: 30day, Stop date: 06/12/14 21:00:00 Notes: (Same as: Zofran) Start Date: 05/13/14 Stop Date: 05/14/14 Status: DiscontinuedZofran ODT 4 mg, 1 tab, Route: PO, Drug form: TABDIS, Q8H, Dosing Weight 100, kg, PRN as needed for nausea/vomiting, Start date: 05/13/14 18:51:00, Stop date: 06/12/14 18:50:00 Notes: (Same as: Zofran ODT) Start Date: 05/13/14 Stop Date: 05/14/14 Status: Discontinued Results ELECTROLYTES Most recent to oldest [Reference Range]: 1 Sodium Lvl [135-145 mEq/L] 141 mEq/L (05/13/14 6:09 PM) Potassium Lvl [3.5-5.1 mEq/L] 3.7 mEq/L (05/13/14 6:09 PM) Chloride Lvl [95-109 mEq/L] 105 mEq/L (05/13/14 6:09 PM) CO2 [24-32 mEq/L] 31 mEq/L (05/13/14 6:09 PM) AGAP [10.0-20.0 mEq/L] 8.7 mEq/L *LOW* (05/13/14 6:09 PM) CHEM PANEL Most recent to oldest [Reference Range]: 1 Creatinine Lvl [0.5-1.4 mg/dL] 1.1 mg/dL (05/13/14 6:09 PM) eGFR 82 mL/min/1.73m2 1 *NA* (05/13/14 6:09 PM) BUN [7-22 mg/dL] 6 mg/dL *LOW* (05/13/14 6:09 PM) B/C Ratio [6-25] 5 *LOW* (05/13/14 6:09 PM) Glucose Lvl [70-99 mg/dL] 85 mg/dL 2 (05/13/14 6:09 PM) Total Protein [6.4-8.4 g/dL] 6.6 g/dL (05/13/14 6:09 PM) Albumin Lvl [3.5-5.0 g/dL] 3.6 g/dL (05/13/14 6:09 PM) Globulin [2.0-4.0 g/dL] 3.0 g/dL (05/13/14 6:09 PM) A/G Ratio [0.7-1.6] 1.2 (05/13/14 6:09 PM) Calcium Lvl [8.5-10.5 mg/dL] 8.5 mg/dL (05/13/14 6:09 PM) ALT [0-65 unit/L] 25 unit/L (05/13/14 6:09 PM) AST [0-37 unit/L] 17 unit/L (05/13/14 6:09 PM) Alk Phos [39-136 unit/L] 62 unit/L (05/13/14 6:09 PM) Bili Total [0.2-1.3 mg/dL] 0.2 mg/dL (05/13/14 6:09 PM) Lipase Lvl [73-393 unit/L] 170 unit/L (05/13/14 6:09 PM) 1Result Comment: The eGFR is calculated [...] values reflect the clinical guidelines of the [place] [employer].ANEMIA STUDY Most recent to oldest [Reference Range]: 1 Iron [45-160 ug/dl] 76 ug/dl (05/13/14 11:14 PM) Ferritin Lvl [22-275 ng/mL] 31 ng/mL (05/13/14 11:14 PM) % Satur Fe [12-57 %] 21 % (05/13/14 11:14 PM) UIBC [110-370 ug/dl] 282 ug/dl (05/13/14 11:14 PM) Vitamin B12 Lvl [254-1320 pg/mL] 510 pg/mL (05/13/14 11:14 PM) Folate Lvl [>=3.0 ng/mL] 15.7 ng/mL (05/13/14 11:14 PM) TIBC [228-428 ug/dl] 358 ug/dl (05/13/14 11:14 PM) URINE AND STOOL Most recent to oldest [Reference Range]: 1 UA Turbidity [Clear] Clear (05/14/14 8:48 AM) UA Color Ltyellow *NA* (05/14/14 8:48 AM) UA pH [5.0-8.0] 7.0 (05/14/14 8:48 AM) UA Spec Grav [<=1.030] 1.006 (05/14/14 8:48 AM) UA Glucose [Negative mg/dL] Negative mg/dL *NA* (05/14/14 8:48 AM) UA Blood [Negative] Negative (05/14/14 8:48 AM) UA Ketones [Negative mg/dL] Negative mg/dL *NA* (05/14/14 8:48 AM) UA Protein [Negative mg/dL] Negative mg/dL (05/14/14 8:48 AM) UA Urobilinogen [0.1-1.0 mg/dL] <=1.0 mg/dL *NA* (05/14/14 8:48 AM) UA Bili [Negative] Negative *NA* (05/14/14 8:48 AM) UA Leuk Est [Negative] Negative (05/14/14 8:48 AM) UA Nitrite [Negative] Negative (05/14/14 8:48 AM) UA WBC [0-5 /HPF] <1 /HPF (05/14/14 8:48 AM) UA Sq Epi None Seen *NA* (05/14/14 8:48 AM) IMMUNOLOGY Most recent to oldest [Reference Range]: 1 CRP [<=2.9 mg/L] 9.1 mg/L *HI* (05/13/14 6:09 PM) HEMATOLOGY Most recent to oldest [Reference Range]: 1 WBC [3.7-10.4 K/CMM] 4.8 K/CMM (05/13/14 6:09 PM) RBC [4.70-6.10 M/CMM] 4.26 M/CMM *LOW* (05/13/14 6:09 PM) Hgb [14.0-18.0 g/dL] 12.8 g/dL *LOW* (05/13/14 6:09 PM) Hct [42.0-54.0 %] 38.5 % *LOW* (05/13/14 6:09 PM) MCV [80.0-94.0 fL] 90.4 fL (05/13/14 6:09 PM) MCH [27.0-31.0 pg] 30.1 pg (05/13/14 6:09 PM) MCHC [32.0-36.0 g/dL] 33.3 g/dL (05/13/14 6:09 PM) RDW [11.5-14.5 %] 13.1 % (05/13/14 6:09 PM) Platelet [133-450 K/CMM] 204 K/CMM (05/13/14 6:09 PM) MPV [7.4-10.4 fL] 9.1 fL (05/13/14 6:09 PM) Segs [45.0-75.0 %] 44.1 % *LOW* (05/13/14 6:09 PM) Lymphocytes [20.0-40.0 %] 38.2 % (05/13/14 6:09 PM) Monocytes [2.0-12.0 %] 9.1 % (05/13/14 6:09 PM) Eosinophils [0.0-4.0 %] 8.1 % *HI* (05/13/14 6:09 PM) Basophils [0.0-1.0 %] 0.5 % (05/13/14 6:09 PM) Segs-Bands # [1.5-8.1 K/CMM] 2.1 K/CMM (05/13/14 6:09 PM) Lymphocytes # [1.0-5.5 K/CMM] 1.8 K/CMM (05/13/14 6:09 PM) Monocytes # [0.0-0.8 K/CMM] 0.4 K/CMM (05/13/14 6:09 PM) Eosinophils # [0.0-0.5 K/CMM] 0.4 K/CMM (05/13/14 6:09 PM) Sed Rate [0-15 mm/hr] 8 mm/hr (05/13/14 6:09 PM) Medications Administered During Your Visit No data available for this section Immunizations No data available for this section Social History Social History Type Response Smoking Status Current every day smoker, Type: Cigarettes, Previous treatment: None, Concerns about tobacco use in household: No, Exposure to Tobacco Smoke None, Cigarette Smoking Last 365 Days No, Reg Smoking Cessation Counseling Yes
--- OUTSIDE RECORDS SUMMARY | 2017-12-04 09:53 | XMS REPORT | Summary of Care ---
:1970 Author Organization [facility] Address [facility] [place], [place] [address]- Encounter HQ Benedict_jacob(FIN) [id number] Date(s): 07/07/16 - 07/07/[address] [address]- Discharge Disposition: Home or Self Care Attending Physician: Coy Burt MD Vital Signs Most recent to oldest 1 2 3 [Reference Range]: Height 175.26 cm (07/07/16 5:07 PM) Temperature Oral [96.4-99.1 98.5 DegF 98.1 DegF DegF] (07/07/16 9:07 PM) (07/07/16 5:07 PM) Blood Pressure [90-140/60-90 134/94 mmHg 148/83 mmHg 139/90 mmHg mmHg] (07/07/16 9:07 PM) *HI* (07/07/16 5:07 PM) (07/07/16 6:50 PM) Respiratory Rate [14-20 BRMIN] 18 BRMIN 20 BRMIN 20 BRMIN (07/07/16 9:07 PM) (07/07/16 6:50 PM) (07/07/16 5:07 PM) Peripheral Pulse Rate [60-100 79 bpm 81 bpm 90 bpm bpm] (07/07/16 9:07 PM) (07/07/16 6:50 PM) (07/07/16 5:07 PM) Weight 90.909 kg (07/07/16 5:07 PM) Body Mass Index 29.6 m2 (07/07/16 5:07 PM) Problem List Condition Effective Dates Status Health Status Informant Abdominal pain(Confirmed) Active Anxiety(Confirmed) Active Anxiety depression(Confirmed) Active Depression(Confirmed) Active 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 Nausea(Confirmed) Active Pancreatitis(Confirmed) Active Pancreatitis, acute(Confirmed) Active Allergies, Adverse Reactions, Alerts Substance Reaction Severity Status Bactrim Active Compazine shakey Active Reglan shakey Active sulfa drugs Active Tape Active Medications Ativan 1 mg, 0.5 mL, Route: IVP, Drug form: INJ, ONCE, Dosing Weight 90.909, kg, Priority: STAT, Start date: 07/07/16 20:25:00 OFFICE CASHIER, Stop date: 07/07/16 20:25:00 OFFICE CASHIER Notes: (Same as: Ativan) Start Date: 07/07/16 Stop Date: 07/07/16 Status: CompletedAtivan 1 mg, Route: IVP, Drug form: INJ, ONCE, Dosing Weight 90.909, kg, Priority: STAT , Start date: 07/07/16 18:46:00 OFFICE CASHIER, Stop date: 07/07/16 18:46:00 OFFICE CASHIER Start Date: 07/07/16 Stop Date: 07/07/16 Status: CompletedLactated Ringers 1,000 mL 1,000 mL, Rate: 1,000 ml/hr, Infuse over: 1 hr, Route: IV, Dosing Weight 90.909 kg, Total Volume: 1,000, Start date: 07/07/16 18:11:00 OFFICE CASHIER, Duration: 1 doses or times, Stop date: 07/07/16 19:10:00 OFFICE CASHIER Start Date: 07/07/16 Stop Date: 07/07/16 Status: Completedmorphine Sulfate 4 mg, 1 mL, Route: IVP, Drug form: SOLN, ONCE, Dosing Weight 90.909, kg, Priority: STAT, Start date:07/07/16 20:22:00 OFFICE CASHIER, Stop date: 07/07/16 20:22:00 OFFICE CASHIER Notes: (Same as:MORPhine Sulfate) Start Date: 07/07/16 Stop Date: 07/07/16 Status: Completedmorphine Sulfate 4 mg, Route: IVP, ONCE, Dosing Weight 90.909, kg, Priority: STAT, Start date: 18:46:00 OFFICE CASHIER,Stop date: 07/07/16 18:46:00 OFFICE CASHIER Start Date: 07/07/16 Stop Date: 07/07/16 Status: CompletedSaline Flush 0.9% 10 mL, Route: IVP, Drug Form: INJ, Dosing Weight 100, kg, PRN, PRN Line Flush, Start date: 07/07/16 17:10:00 OFFICE CASHIER, Duration: 30 day, Stop date: 08/06/16 17:09: 00 OFFICE CASHIER Notes: (Same as: BD Posiflush) Start Date: 07/07/16 Stop Date: 07/07/16 Status: DiscontinuedZofran 4 mg, 2 mL, Route: IVP, Drug form: INJ, ONCE, Dosing Weight 90.909, kg, Priority : STAT, Start date: 07/07/16 18:12:00 OFFICE CASHIER, Stop date: 07/07/16 18:12:00 OFFICE CASHIER Notes: (Same as: Zofran) MEDICATION WASTE Product Size: 4 mgProduct Wasted: ___ mg Start Date: 07/07/16 Stop Date: 07/07/16 Status: Completed Results ELECTROLYTES Most recent to oldest [Reference Range]: 1 Sodium Lvl [135-145 mEq/L] 139 mEq/L (07/07/16 7:53 PM) Potassium Lvl [3.5-5.1 mEq/L] 3.9 mEq/L (07/07/16 7:53 PM) Chloride Lvl [95-109 mEq/L] 104 mEq/L (07/07/16 7:53 PM) CO2 [24-32 mEq/L] 30 mEq/L (07/07/16 7:53 PM) AGAP [10.0-20.0 mEq/L] 8.9 mEq/L *LOW* (07/07/16 7:53 PM) CHEM PANEL Most recent to oldest [Reference Range]: 1 Creatinine Lvl [0.50-1.40 mg/dL] 0.96 mg/dL (07/07/16 7:53 PM) eGFR 95 mL/min/1.73m2 1 *NA* (07/07/16 7:53 PM) BUN [7-22 mg/dL] 9 mg/dL (07/07/16 7:53 PM) B/C Ratio [6-25] 9 (07/07/16 7:53 PM) Glucose Lvl [70-99 mg/dL] 78 mg/dL (07/07/16 7:53 PM) Total Protein [6.4-8.4 g/dL] 7.6 g/dL (07/07/16 7:53 PM) Albumin Lvl [3.5-5.0 g/dL] 4.1 g/dL (07/07/16 7:53 PM) Globulin [2.7-4.2 g/dL] 3.5 g/dL (07/07/16 7:53 PM) A/G Ratio [0.7-1.6] 1.2 (07/07/16 7:53 PM) Calcium Lvl [8.5-10.5 mg/dL] 8.9 mg/dL (07/07/16 7:53 PM) Magnesium Lvl [1.8-2.4 mg/dL] 2.6 mg/dL *HI* (07/07/16 7:53 PM) ALT [0-65 unit/L] 25 unit/L (07/07/16 7:53 PM) AST [0-37 unit/L] 9 unit/L (07/07/16 7:53 PM) Alk Phos [39-136 unit/L] 54 unit/L (07/07/16 7:53 PM) Bili Total [0.2-1.3 mg/dL] 0.4 mg/dL (07/07/16 7:53 PM) Amylase Lvl [25-115 unit/L] 79 unit/L (07/07/16 7:53 PM) Lipase Lvl [73-393 unit/L] 248 unit/L (07/07/16 7:53 PM) 1Result Comment: The eGFR is calculated [...] eGFR should be multiplied by the estimated BMI.URINE AND STOOL Most recent to oldest [Reference Range]: 1 UA Turbidity [Clear] Clear (07/07/16 6:15 PM) UA Color [Yellow] Colorless *NA* (07/07/16 6:15 PM) UA pH [5.0-8.0] 7.0 (07/07/16 6:15 PM) UA Spec Grav [<=1.030] 1.002 (07/07/16 6:15 PM) UA Glucose [Negative mg/dL] Negative mg/dL *NA* (07/07/16 6:15 PM) UA Blood [Negative] Small *ABN* (07/07/16 6:15 PM) UA Ketones [Negative mg/dL] Negative mg/dL *NA* (07/07/16 6:15 PM) UA Protein [Negative mg/dL] Negative mg/dL (07/07/16 6:15 PM) UA Urobilinogen [0.1-1.0 mg/dL] <=1.0 mg/dL *NA* (07/07/16 6:15 PM) UA Bili [Negative] Negative *NA* (07/07/16 6:15 PM) UA Leuk Est [Negative] Negative (07/07/16 6:15 PM) UA Nitrite [Negative] Negative (07/07/16 6:15 PM) UA WBC [0-5 /HPF] <1 /HPF (07/07/16 6:15 PM) UA Bacteria [None Seen /HPF] Occasional /HPF *NA* (07/07/16 6:15 PM) UA Sq Epi None Seen *NA* (07/07/16 6:15 PM) HEMATOLOGY Most recent to oldest [Reference Range]: 1 WBC [3.7-10.4 K/CMM] 6.9 K/CMM (07/07/16 6:24 PM) RBC [4.70-6.10 M/CMM] 4.94 M/CMM (07/07/16 6:24 PM) Hgb [14.0-18.0 g/dL] 14.8 g/dL (07/07/16 6:24 PM) Hct [42.0-54.0 %] 45.4 % (07/07/16 6:24 PM) MCV [80.0-94.0 fL] 91.8 fL (07/07/16 6:24 PM) MCH [27.0-31.0 pg] 30.0 pg (07/07/16 6:24 PM) MCHC [32.0-36.0 g/dL] 32.7 g/dL (07/07/16 6:24 PM) RDW [11.5-14.5 %] 13.7 % (07/07/16 6:24 PM) Platelet [133-450 K/CMM] 277 K/CMM (07/07/16 6:24 PM) MPV [7.4-10.4 fL] 8.4 fL (07/07/16 6:24 PM) Segs [45.0-75.0 %] 66.8 % (07/07/16 6:24 PM) Lymphocytes [20.0-40.0 %] 25.8 % (07/07/16 6:24 PM) Monocytes [2.0-12.0 %] 5.5 % (07/07/16 6:24 PM) Eosinophils [0.0-4.0 %] 1.5 % (07/07/16 6:24 PM) Basophils [0.0-1.0 %] 0.4 % (07/07/16 6:24 PM) Segs-Bands # [1.5-8.1 K/CMM] 4.6 K/CMM (07/07/16 6:24 PM) Lymphocytes # [1.0-5.5 K/CMM] 1.8 K/CMM (07/07/16 6:24 PM) Monocytes # [0.0-0.8 K/CMM] 0.4 K/CMM (07/07/16 6:24 PM) Eosinophils # [0.0-0.5 K/CMM] 0.1 K/CMM (07/07/16 6:24 PM) Basophils # [0.0-0.2 K/CMM] 0.0 K/CMM (07/07/16 6:24 PM) Immunizations No data available for this [...]
--- OUTSIDE RECORDS SUMMARY | 2017-12-04 09:53 | XMS REPORT ---
:1970 Author Organization [employer] Care Team Providers Name Role Prachi Elder Provider Role Unavailable Allergies, Adverse Reactions, Alerts Substance Reaction Event Type Compazine anxious Drug Allergy Reglan anxious Drug Allergy Lisinopril abd pain Drug Allergy Encounters Encounter Location Date Initial visit Prachi Guzmán MD Apr 19, 2014 Sick Visit - Follow up for multiple problems Prachi Guzmán MD May 12, 2014 Problems Problem Type Condition ICD-9 Code Onset Dates Condition Status Assessment Diverticulitis of colon (without 562.11 Active mention of hemorrhage) Assessment GERD -Esophageal reflux 530.81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 Hypertension 401.9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 Tension headache 307.81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 Diverticulitis of colon (without 562.11 Active mention of hemorrhage) Problem Allergic rhinitis 477.9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 Chronic pancreatitis 577.1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 GERD -Esophageal reflux 530.81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 Bipolar disorder, unspecified 296.80 Active Medications Medication Code System Code Instructions Start End Status Dosage Date Date Xanax MEDISPAN 62146-60 2 MG Orally Active 1/2 tablet 94-01 three times a in am and day (tid) noon, 1 tablet at bedtime Lamictal MEDISPAN 96969-14 250 Orally once Active 1 tablet 99-00 every night [facility] 29976-58 0.1 MG Orally Apr 19, Active 1 tablet 27-10 twice a day 2013 at bedtime (bid) Cymbalta MEDISPAN 23706-46 90 Orally Once a Active 1 capsule 40-01 day Beemer MEDISPAN 94506-81 10-325 MG Orally May 12, May 27, Active 1 tablet 80-73 every 6 hrs 2013 2013 as needed Dexilant [facility] 85711-88 30 MG Orally May 12, Active 1 capsule 66-30 Once a day 2013 Singulair MEDISPAN 68869-16 10 MG Orally Active 1 tablet 17-01 Once a day in the evening Tramadol HCl MEDISPAN 49369-26 50 mg Orally May 19, Active 1 or 2 58-01 every 6 hrs for 2014 tablet headache [facility] 00451[facility]81 25 MG Orally Apr 19, Active 1 tablet 55-06 twice a day 2013 (bid) Metronidazole MEDISPAN 19282-49 500 mg Orally May 12May 22, Active 1 tablet 32-04 Three times a 2013 2013 day Protonix MEDISPAN 87872-69 40 mg Orally Inactive 1 tablet 41-81 once a day Seroquel MEDISPAN 21826-46 50 mg Orally Active 1 tablet 78-10 Once a day at bedtime Cipro MEDISPAN 06106-90 500 mg Orally May 12May 22, Active 1 tablet 54-01 every 12 hrs 2013 2013 Social History Social History Element Qualifiers Date Reported Do you take aspirin or a blood . Tosha Elias 04/19/2014 May 12, 2014 thinner drug? 3:57:10 PM > Tobacco Use: . Are you a: current smoker, How May 12, 2014 much do you smoke? 1 pack a day, For how many years have you smoked? 4-6 years Marital Status: . SingleTosha Garcia 04/19/2014 May 12, 2014 3:56:57 PM > Do you exercise? . Status: Yes, What type: Coffee, May 12, 2014 Soft Drinks, Chocolate, Energy Drinks Vital Signs Date/Time: May 12, 2014 Weight 194.5 lbs Height 68.6 in Temperature 98.6 F Cardiac Monitoring Heart Rate 83 /min Blood Pressure Diastolic 82 mm Hg Blood Pressure Systolic 128 mm Hg Respiratory Rate 20 /min Summary Purpose [employer] Submission
--- NOTE | 2017-12-04 11:36 | RAD REPORT ---
EXAM DESCRIPTION: CT - Head Brain Wo Cont - 12/04/2017 11:25 am CLINICAL HISTORY: Dizziness, visual disturbance, transient alteration of awareness COMPARISON: CT imaging June 2014 TECHNIQUE: Axial 5 mm thick images of the head were obtained without IV contrast. All CT scans are performed using dose optimization technique as appropriate and may include automated exposure control or mA/KV adjustment according to patient size. FINDINGS: No epidural, subdural or subarachnoid hemorrhage identifiable. No mass, edema or midline s hift. No acute cortical based infarction identifiable. Ventricles are normal. No significant atrophy or chronic ischemic change. No abnormal extra-axial fluid collections. Focal hyperdensity in the righ t frontal lobe white matter 5-6 mm in size has increased from June 2014. This is believed to be a benign brain parenchymal mineralization process. Intraparenchymal hemorrhage is not suspected. Mastoid air cells and visualized portions of the paranasal sinuses are clear. No acute bony findings. Small partially mineralized mass is present in the lateral superior left frontal scalp soft tissues. This is not regarded as significant. IMPRESSION: No intracranial hemorrhage, mass or edema. No acute infarction changes seen. Focal hyperdensity in the right frontal lobe white matter is believed to be calcification that has pr ogressed but is not new from 2014. No associated soft tissue mass or edema.
--- NOTE | 2017-12-04 11:39 | RAD REPORT ---
EXAM DESCRIPTION: [place] Single View12/04/2017 11:17 am CLINICAL HISTORY: Shortness of breath COMPARISON: May 2017 FINDINGS: The lungs appear clear of acute infiltrate. The heart is normal size IMPRESSION: No acute abnormalities displayed
[2017-12-04] MEDS ORDERED: LORazepam 2 MG/ML VIAL ONE (12:05)
[2017-12-04] MEDS ORDERED: MORPHINE 4 MG/ML SYR ONE ×2 (12:06→13:24)
[2017-12-04 12:18] LABS: Barbiturates NEGATIVE (NEGATIVE); Benzodiazepines NEGATIVE (NEGATIVE); Cocaine NEGATIVE (NEGATIVE); METHAMPHETAM NEGATIVE (NEGATIVE); Methadone NEGATIVE (NEGATIVE); Opiates NEGATIVE (NEGATIVE); Phencyclidine NEGATIVE (NEGATIVE); THC Cannibis NEGATIVE (NEGATIVE)
[2017-12-04 12:21] LABS: Absolute Monocytes 0.8 K/uL (0.1-1.3); Absolute Neutrophil 6.5 K/uL (1.8-8.0); Basophils % 0.5 % (0-1.3); Eosinophils % 2.4 % (0-4.4); Hematocrit 43.2 % (39.6-49.0); Lymphocytes % 12.1 % (15.3-44.8); MCH 30.2 pg (27.0-35.0); MCV 93.1 fL (80-100); MPV 8.1 fL (7.6-11.3); Monocytes % 9.1 % (3.3-12.3); RBC Red Blood Cell Count 4.64 M/uL (4.33-5.43)
[2017-12-04 12:35] LABS: ALT/SGPT 23 U/L (12-78); AST/SGOT 18 U/L (15-37); Albumin 4.1 g/dL (3.4-5.0); Alkaline Phosphatase 62 U/L (45-117); BUN Blood Urea Nitrogen 10 mg/dL (7-18); Bicarbonate 29 mmol/L (21-32); Bilirubin Direct 0.1 mg/dL (0-0.2); Bilirubin Total 0.3 mg/dL (0.2-1.0); Creatine Phosphokinase 67 U/L (39-308); Glucose Level 94 mg/dL (74-106); Magnesium 2.8 mg/dL (1.8-2.4); Potassium 4.4 mmol/L (3.5-5.1); Protein, Total 8.1 g/dL (6.4-8.2); Sodium Level 135 mmol/L (136-145)
[2017-12-04 12:36] LABS: Protime INR 1.07
--- NOTE | 2017-12-04 12:44 | EKG ---
Test Date: 2017-12-04 Test Time: 10:11:33 Machine Captain: JOYA MEASUREMENT RESULTS: Intervals: Rate: 105 MI: 148 QRSD: 92 QT: 342 QTc: 452 Buda: P: 67 MI: 148 QRS: 82 T: 53 INTERPRETIVE STATEMENTS: Sinus tachycardia Otherwise normal ECG Compared to ECG 05/28/2017 16:03:07 Sinus rhythm no longer present Electronically Signed On 12-04-17 12:43:53 CDT by Galo Alexander
[2017-12-04 13:14] LABS: Urine Blood 1+ (NEG); Urine Glucose NEGATIVE (NEG); Urine Protein NEGATIVE (NEG)
[2017-12-04 15:16] LABS: Appearance CLEAR (CLEAR); Body Fluid Source CSF; Body Fluid WBC 1 /mm^3; Color of fluid Colorless (COLORLESS)
[2017-12-04 15:17] LABS: Fluid Total Volume 10 ml
[2017-12-04 15:18] LABS: Appearance CLEAR (CLEAR); Body Fluid Source CSF; Body Fluid WBC 1 /mm^3; Color of fluid Colorless (COLORLESS)
[2017-12-04 15:34] LABS: CSF Glucose 56 mg/dL (40-70)
[2017-12-04] MEDS ORDERED: clonazePAM 0.5 MG TAB ONE (15:45)
--- NOTE | 2017-12-04 16:00 | P.CNS ---
Date of Consult: 12/04/17 Reason for Consult: Possible admission Requesting Physician: Gabriele Cavanaugh Primary Care Provider: Dr. Valdes; GI-Dr. Meadows; Pain management-Dr. Mckeon Chief Complaint: Weakness, dizziness, falls, blurry vision History of Present Illness: 46 yo CM presented to the ER with progressive weakness, dizziness, falls, and blurry vision. He reports progressive weakness to the lower extremities over the last 3 days. He has noticed increased falls as well. Today he noted some dizziness and blurry vision. 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 He feels worse today. He also has some paresthesias and pain all over. He has history of Bipolar disorder, Chronic pancreatitis, Chronic pain, GERD, and insomnia. In the ER he was evaluated. CT showed increased focal hyperdensity to the right frontal region. This was increased since 2014 but felt it was calcifications. Lab-CMP, CBC, UA was unremarkable. A spinal tap was done in the ER. His Protein level was elevated. Allergies metoclopramide HCl [From Reglan] Allergy (Mild, Verified 10/23/16 22:00) anxious prochlorperazine edisylate [From Compazine] Allergy (Mild, Verified 10/02/16 04: 35) anxous prochlorperazine maleate [From Compazine] Allergy (Mild, Verified 10/02/16 04:35 ) anxious Sulfa (Sulfonamide Antibiotics) [Sulfa(Sulfonamide Antibiotics)] Allergy (Mild, Verified 10/23/16 22:00) Hives/Rash Home medications list reviewed: Yes Home Medications: LORazepam [Ativan*] 2 mg PO TID 12/18/15 Quetiapine [Seroquel*] 200 mg PO BEDTIME 12/18/15 lamoTRIgine [Lamictal*] 400 mg PO BEDTIME 12/18/15 [place] Carbonate [[place] Carbonate ER] 600 mg PO BEDTIME 08/15/16 Trazodone HCl 100 mg PO BEDTIME PRN PRN 08/15/16 Vortioxetine Hydrobromide [Trintellix] 20 mg PO DAILY 08/15/16 Hydrocodone Bit/Acetaminophen [Hydrocodon-Acetaminophn 10-325] 1 each PO Q6H Omeprazole [Prilosec] 40 mg PO BID 10/02/16 Bisacodyl [Dulcolax] 10 mg PO DAILYPRN PRN #10 tab 10/25/16 Docusate [Colace Cap] 100 mg PO BID PRN #20 cap 10/25/16 Ketorolac [Toradol] 10 mg PO Q6HR PRN #15 tab 10/25/16 - Past Medical/Surgical History Diabetic: No -: History of Guillan Okay-1999 -: HTN -: Chronic pancreatitis -: Chronic pain -: Bipolar disorder -: GERD -: Tobacco abuse -: Cholecystectomy -: Appendectomy -: Bilateral foot sx -: Left hand sx -: pins in both feet Psychosocial/ Personal History: He lives with a friend. No children. He reports that he is rojo. - Family History Father Medical History: Heart disease - Social History Smoking Status: Current every day smoker Counseled patient to stop smoking for: less than 10 minutes Smoking therapy provided: Yes Patient receptive to therapy: Yes Alcohol use: No CD- Drugs: No Caffeine use: No Place of Residence: Home Review of Systems General: Weakness, Malaise, As per HPI Eyes: As per HPI ENT: Unremarkable Respiratory: Unremarkable Cardiovascular: Unremarkable Gastrointestinal: Unremarkable Musculoskeletal: Back Pain, Leg Pain, Foot Pain, As per HPI Integumentary: Unremarkable Neurological: Weakness, Numbness, Incoordination, As per HPI Lymphatics: Unremarkable Physical Examination General: Alert, In no apparent distress, Oriented x3, Cooperative HEENT: Atraumatic, Normocephalic, PERRLA, Other (Patient reports dizziness) Neck: Supple, No Thyromegaly Respiratory: Clear to auscultation bilaterally, Normal air movement Cardiovascular: Normal pulses, Regular rate/rhythm Gastrointestinal: Normal bowel sounds, Soft and benign, Non-distended, No tenderness, No masses, No rebound, No guarding Musculoskeletal: No tenderness, No warmth Integumentary: No tenderness/swelling, No erythema, No warmth, No cyanosis, Other (Rash to the neck line and left upper ext. Appears Psoriatic) Neurological: Abnormal strength (Strength to the lower ext is decreased. L greater than R. Numbness to the extremities. ) Laboratory Data (last 24 hrs) 12/04/17 11:50: Lipase 254 12/04/17 11:50: PT 12.6 H, INR 1.07 12/04/17 11:50: WBC 8.5, Hgb 14.0, Hct 43.2, Plt Count 234 12/04/17 11:50: Sodium 135 L, Potassium 4.4, BUN 10, Creatinine 1.10, Glucose 94 , Magnesium 2.8 H, Total Bilirubin 0.3, AST 18, ALT 23, Alkaline Phosphatase 62 - Problems (1) Weakness Current Visit: Yes Status: Acute (2) Paresthesia and pain of extremity Current Visit: Yes Status: Acute (3) Falls Current Visit: Yes Status: Acute Qualifiers: Encounter type: initial encounter Qualified Code(s): W19.XXXA - Unspecified fall, initial encounter (4) Blurry vision, bilateral Current Visit: Yes Status: Acute (5) Guillain Bueno syndrome Current Visit: Yes Status: Suspected (6) Chronic pain Current Visit: Yes Status: Chronic Qualifiers: Chronic pain type: chronic pain syndrome Qualified Code(s): G89.4 - Chronic pain syndrome (7) GERD (gastroesophageal reflux disease) Current Visit: Yes Status: Chronic Qualifiers: Esophagitis presence: esophagitis presence not specified Qualified Code(s) : K21.9 - Gastro-esophageal reflux disease without esophagitis (8) Chronic pancreatitis Onset Date: 10/02/16 Current Visit: No Status: Chronic Qualifiers: Pancreatitis type: unspecified pancreatitis type Qualified Code(s): K86.1 - Other chronic pancreatitis (9) Hypertension Onset Date: 09/27/14 Current Visit: No Status: Chronic Qualifiers: Hypertension type: essential hypertension Qualified Code(s): I10 - Essential (primary) hypertension Conclusions/Impression: Lab and CT scan reviewed. CSF protein was elevated. Patient with history of Guillan Okay in 1999. He reports that this is similar presentation. Spoke at length to Dr. Velasco-Neurology. Due to elevation in protein, patient would require higher level of care and evaluation to rule out GB syndrome. If positive, he would need IVIG which we do not have. Therefore, recommend to transfer the patient to higher level of care center. Patient requests [facility]. Will discuss with ER physician/provider to help arrange. Will need to rule out other etiologies-CVA, Neuropathy. Time Spent Managing Pts care (In Minutes): 55
--- NOTE | 2017-12-04 16:42 | ER ---
Nurse's Notes [facility] Name: Thong Fuhcs Jr Age: 46 yrs Sex: Male : 1970 Arrival Date: 12/04/2017 Time: 09:51 Bed 18 Private MD: Monroe Valdes H Diagnosis: Weakness;Visual field defects;Possible Guillain [place] Syndrome Presentation: 12/04 10:08 Presenting complaint: Patient states: Reports dizziness and blurred vision for 4 days. aj Seen by Dr Valdes yesterday and DX with Vertigo. Transition of care: patient was not received from another setting of care. Onset of symptoms was November 30, 2017. Risk Assessment: Do you want to hurt yourself or someone else? Patient reports no desire to harm self or others. Initial Sepsis Screen: Does the patient meet any 2 criteria? HR > 90 bpm. No. Patient's initial sepsis screen is negative. Does the patient have a suspected source of infection?. Care prior to arrival: None. 10:08 Method Of Arrival: Wheelchair aj 10:08 Acuity: LILO 3 aj Triage Assessment: 10:15 General: Appears in no apparent distress. comfortable, Behavior is calm, cooperative, aj appropriate for age. Pain: Denies pain. Neuro: Level of Consciousness is awake, alert, obeys commands, Oriented to person, place, time, situation, Appropriate for age [place] are equal bilaterally Weakness in bilateral leg(s) Gait is unsteady, Speech is normal, Facial symmetry appears normal, Intact Reports dizziness. Neuro: Reports blurred vision. Respiratory: Airway is patent Respiratory effort is even, unlabored, Respiratory pattern is regular, symmetrical. Derm: Skin is intact, is healthy with good turgor, Skin is pink, warm \\T\\ dry. normal. Historical: - Allergies: 10:15 Compazine; aj 10:15 Reglan; aj 10:15 Sulfa (Sulfonamide Antibiotics); aj - Home Meds: 10:15 venlafaxine 150 mg oral cp24 once daily [Active]; quetiapine 200 mg oral tab once daily aj [Active]; omeprazole 40 mg oral cpDR 2 times per day [Active]; lamotrigine 200 mg oral tab 2 tabs once daily [Active]; clonazepam 2 mg Oral tab 1 tab 2 times per day [Active]; meclizine 25 mg Oral chew 1 tab 2 times per day [Active]; lithium carbonate 600 mg Oral cap 1 cap at bedtime [Active]; terbinafine HCl 250 mg oral tab 1 tab once daily [Active]; azithromycin 250 mg Oral tab 1 tab once daily [Active]; hydrocodone-acetaminophen 10-325 mg Oral tab 1 tab every 6 hours [Active]; - PMHx: 10:15 Anxiety; Depression; guillain barre; Hypertension; PANCREATIC CALCIFICATION; aj Pancreatitis; - PSHx: 10:15 None; aj - Immunization history:: Adult Immunizations up to date. - Social history:: Smoking status: Patient uses tobacco products, smokes one-half pack cigarettes per day. - Ebola Screening: : Patient negative for fever greater than or equal to 101.5 degrees Fahrenheit, and additional compatible Ebola Virus Disease symptoms Patient denies exposure to infectious person Patient denies travel to an Ebola-affected area in the 21 days before illness onset No symptoms or risks identified at this time. Screenin:52 Abuse screen: Denies threats or abuse. Denies injuries from another. Nutritional jl7 screening: No deficits noted. Tuberculosis screening: No symptoms or risk factors identified. Fall Risk Fall in past 12 months (25 points). IV access (20 points). Total Rahman Fall Scale indicates High Risk Score (45 or more points). Fall prevention measures have been instituted. Side Rails Up X 2 Placed Close to Nursing Station Frequent Obs/Assessments Occuring Family Present and informed to notify staff if the need to leave the bedside As available patient and family educated on Fall Prevention Program and Strategies. Assessment: 11:30 General: Appears in no apparent distress. uncomfortable, Behavior is cooperative, jl7 anxious. Pain: Complains of pain in all over Pain does not radiate. Pain currently is 10 out of 10 on a pain scale. Quality of pain is described as "Just pain." Pain began years ago. Is continuous. Neuro: Level of Consciousness is awake, alert, obeys commands, Oriented to person, place, time, situation. Cardiovascular: Heart tones S1 S2 present Patient's skin is warm and dry. Respiratory: Airway is patent Respiratory effort is even, unlabored, Respiratory pattern is regular, symmetrical, Breath sounds are clear bilaterally. GI: No signs and/or symptoms were reported involving the gastrointestinal system. : No signs and/or symptoms were reported regarding the genitourinary system. EENT: No signs and/or symptoms were reported regarding the EENT system. Derm: Rash noted that is bilateral arms. Pt reports "Dr. Valdes said it's psoriasis.". Musculoskeletal: No signs and/or symptoms reported regarding the musculoskeletal system. 12:30 Reassessment: Patient and/or family updated on plan of care and expected duration. Pain jl7 level reassessed. Patient is alert, oriented x 3, equal unlabored respirations, skin warm/dry/pink. 13:30 Reassessment: Patient and/or family updated on plan of care and expected duration. Pain jl7 level reassessed. Patient is alert, oriented x 3, equal unlabored respirations, skin warm/dry/pink. 14:30 Reassessment: Patient and/or family updated on plan of care and expected duration. Pain jl7 level reassessed. Patient is alert, oriented x 3, equal unlabored respirations, skin warm/dry/pink. Pt instructed to remain flat for 1 hour. 15:30 Reassessment: Patient and/or family updated on plan of care and expected duration. Pain jl7 level reassessed. Patient is alert, oriented x 3, equal unlabored respirations, skin warm/dry/pink. Vital Signs: 10:15 BP 136 / 95; Pulse 120; Resp 16; Temp 99.4(O); Pulse Ox 97% on R/A; Weight 68.04 kg; aj Height 5 ft. 9 in. (175.26 cm); 12:52 BP 123 / 82; Pulse 107; Resp 16 S; Pulse Ox 97% on R/A; Pain 10/10; jl7 13:21 Pain 8/10; mh5 13:28 BP 124 / 87; Pulse 92; Resp 17; Pulse Ox 96% on 2 lpm NC; mh5 15:30 BP 107 / 76; Pulse 74; Resp 16; Pulse Ox 97% ; jl7 10:15 Body Mass Index 22.15 (68.04 kg, 175.26 cm) ED Course: 09:51 Patient arrived in ED. rg4 09:51 Monroe Valdes DO is Private Physician. rg4 10:01 Greer Khalil RN is Primary Nurse. jl7 10:04 Gordon Cavanaugh PA is PHCP. jr8 10:04 Jorge Zavaleta MD is Attending Physician. jr8 10:09 Triage completed. aj 10:15 EKG done, by wiring technician. reviewed by Gordon PENG. at1 10:15 Arm band placed on left wrist. Patient placed in an exam room, on a stretcher. EKG aj completed in triage. Results shown to MD. 10:30 Patient has correct armband on for positive identification. Placed in gown. Bed in low jl7 position. Call light in reach. Side rails up X2. threat monitoring analyst on. Pulse ox on. NIBP on. Warm blanket given. 10:52 Radiology exam delayed due to IV insertion attempt and/or patient not having jb2 appropriate IV at this time. 11:08 X-ray completed. Portable x-ray completed in exam room. Patient tolerated procedure jb2 well. 11:08 Missed attempt(s): 20 gauge in right antecubital area. 22 gauge in left forearm. 5 11:09 XRAY Chest (1 view) In Process Unspecified. EDMS 11:[address] via wheelchair. 11:25 CT Head Brain wo Cont In Process Unspecified. EDMS 11:30 Initial lab(s) drawn, by me, sent to lab. Inserted saline lock: 22 gauge in right jl7 wrist, using aseptic technique. Blood collected. 14:30 Assist provider with lumbar puncture: Set up LP tray. Performed by Gordon PENG CSF jl7 is clear. Sample collected. Puncture site dressed with band aid, Procedure was successful. Patient tolerated well. 17:46 Patient transferred, IV remains in place. intact, No redness/swelling at site. jl7 Administered Medications: 12:20 Drug: morphine 4 mg Route: IVP; Site: right wrist; jl7 13:15 Follow up: Response: No adverse reaction; Pain is unchanged, physician notified jl7 12:23 Drug: Ativan 1 mg Route: IVP; Site: right wrist; jl7 14:33 Follow up: Response: No adverse reaction jl7 13:29 Drug: morphine 4 mg Route: IVP; Site: right wrist; jl7 14:00 Follow up: Response: No adverse reaction; Pain is decreased jl7 15:47 Drug: KLONopin 1 mg Route: PO; jl7 17:28 Follow up: Response: No adverse reaction jl7 17:43 Drug: [place] 10 mg-325 mg 1 tabs Route: PO; jl7 17:44 Follow up: Response: Medication administered at discharge. jl7 Outcome: 16:41 ER care complete, transfer ordered by . jr8 17:46 Transferred by ground EMS to [facility], Transfer form completed. jl7 17:46 Condition: stable 17:46 Discharge instructions given to patient, family, Instructed on the need for transfer, Demonstrated understanding of instructions. 17:46 Patient left the ED. jl7 Signatures: Dispatcher [employer] EDMS Pam Cox, RN RN Kyle Boyle Josh, PA PA jr8 Pam callaway, buckle stapler EKG Tat1 Jesica Pearl Rubi rg4 Martinez, Maria [facility] Greer Khalil, RN RN jl7 Corrections: (The following items were deleted from the chart) 13:29 12:20 morphine 4 mg IVP in right antecubital 7 jl7 13:30 12:23 Ativan 1 mg IVP in right antecubital jl7 jl7
--- NOTE | 2017-12-04 16:42 | EDPHYS ---
Physician Documentation [facility] Name: Thong Fuchs Jr Age: 46 yrs Sex: Male : 1970 Arrival Date: 12/04/2017 Time: 09:51 Bed 18 Private MD: Mornoe Valdes H ED Physician Jorge Zavaleta HPI: 12/04 10:58 This 46 yrs old Male presents to ER via Wheelchair with complaints of jr8 Dizziness, Blurred Vision. 10:58 Onset: The symptoms/episode began/occurred gradually, 4 day(s) ago. Modifying factors: jr8 The symptoms are alleviated by nothing, the symptoms are aggravated by standing up. Associated signs and symptoms: Pertinent positives: tremor and weakness . Severity of symptoms: At their worst the symptoms were moderate in the emergency department the symptoms are unchanged. Patient's baseline: Neuro: alert and fully oriented, Motor: no deficits, Ambulation: walks without assistance, Speech: normal. The patient has experienced a previous episode. The patient has not recently seen a physician. Patient stated that he started to have dizziness, gait disturbance, and blurred vision about 4 days ago. Not getting better. 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 Stated that he took himself off of his pain medicine and anxiety medicine to see if that was the cause but not getting better. Saw PCP yesterday and was given meclizine and zithromax because of psoriasis and dizziness . Historical: - Allergies: 10:15 Compazine; aj 10:15 Reglan; aj 10:15 Sulfa (Sulfonamide Antibiotics); aj - Home Meds: 10:15 venlafaxine 150 mg oral cp24 once daily [Active]; quetiapine 200 mg oral tab once daily aj [Active]; omeprazole 40 mg oral cpDR 2 times per day [Active]; lamotrigine 200 mg oral tab 2 tabs once daily [Active]; clonazepam 2 mg Oral tab 1 tab 2 times per day [Active]; meclizine 25 mg Oral chew 1 tab 2 times per day [Active]; lithium carbonate 600 mg Oral cap 1 cap at bedtime [Active]; terbinafine HCl 250 mg oral tab 1 tab once daily [Active]; azithromycin 250 mg Oral tab 1 tab once daily [Active]; hydrocodone-acetaminophen 10-325 mg Oral tab 1 tab every 6 hours [Active]; - PMHx: 10:15 Anxiety; Depression; guillain barre; Hypertension; PANCREATIC CALCIFICATION; aj Pancreatitis; - PSHx: 10:15 None; aj - Immunization history:: Adult Immunizations up to date. - Social history:: Smoking status: Patient uses tobacco products, smokes one-half pack cigarettes per day. - Ebola Screening: : Patient negative for fever greater than or equal to 101.5 degrees Fahrenheit, and additional compatible Ebola Virus Disease symptoms Patient denies exposure to infectious person Patient denies travel to an Ebola-affected area in the 21 days before illness onset No symptoms or risks identified at this time. ROS: 10:56 ENT: Negative for injury, pain, and discharge, Neck: Negative for injury, pain, and jr8 swelling, Cardiovascular: Negative for chest pain, palpitations, and edema, Respiratory: Negative for shortness of breath, cough, wheezing, and pleuritic chest pain, Back: Negative for injury and pain, MS/Extremity: Negative for injury and deformity, Skin: Negative for injury, rash, and discoloration. 10:56 Eyes: Positive for blurry vision, visual disturbance. 10:56 Abdomen/GI: Positive for abdominal pain, Negative for nausea, vomiting, and diarrhea, abdominal cramps, abdominal distension. 10:56 Neuro: Positive for dizziness, gait disturbance, tremor, visual changes, weakness. Exam: 10:51 Head/Face: Normocephalic, atraumatic. ENT: Nares patent. No nasal discharge, no jr8 septal abnormalities noted. Tympanic membranes are normal and external auditory canals are clear. Oropharynx with no redness, swelling, or masses, exudates, or evidence of obstruction, uvula midline. Mucous membranes moist. Neck: Trachea midline, no thyromegaly or masses palpated, and no cervical lymphadenopathy. Supple, full range of motion without nuchal rigidity, or vertebral point tenderness. No Meningismus. Cardiovascular: Regular rate and rhythm with a normal S1 and S2. No gallops, murmurs, or rubs. Normal PMI, no JVD. No pulse deficits. Respiratory: Lungs have equal breath sounds bilaterally, clear to auscultation and percussion. No rales, rhonchi or wheezes noted. No increased work of breathing, no retractions or nasal flaring. Abdomen/GI: Soft with normal bowel sounds. No distension or tympany. No guarding or rebound. Mild mid abdominal tenderness Back: No spinal tenderness. No costovertebral tenderness. Full range of motion. Skin: Warm, dry with normal turgor. Normal color with no rashes, no lesions, and no evidence of cellulitis. MS/ Extremity: Pulses equal, no cyanosis. Neurovascular intact. Full, normal range of motion. 10:51 Eyes: Periorbital structures: appear normal, Pupils: equal, round, and reactive to light and accomodation, Extraocular movements: intact throughout, Conjunctiva: normal, Corneas: are normal, Sclera: no appreciated abnormality, Lids and lashes: appear normal. 10:51 ECG was reviewed by the Attending Physician. 10:51 Neuro: Orientation: to person, place, time \T\ situation. Mentation: is normal, Memory: is normal, immediate memory is intact, recent memory is intact, remote memory is intact, Cranial nerves: CN I not tested, CN II- XII are normal as tested, Bilateral peripheral vision loss. Blink reflex absent . extraocular movements are intact, Facial palsy and sensory deficits are absent. Nystagmus is absent. Speech is clear and appropriate. Tongue strength is normal, Cerebellar function: normal finger to nose testing, Motor: moves all fours, strength is 4/5 in the right arm, left arm, right leg and left leg, Sensation: no obvious gross deficits, Gait: is unsteady, needs assistance, Deep tendon reflexes are 2+ (normal) in the right bicep, right patellar, left bicep and left patellar, seizure activity, is not displayed by the patient, Abnormal movements: resting tremor, is located in the right hand and left hand. Vital Signs: 10:15 BP 136 / 95; Pulse 120; Resp 16; Temp 99.4(O); Pulse Ox 97% on R/A; Weight 68.04 kg; aj Height 5 ft. 9 in. (175.26 cm); 12:52 BP 123 / 82; Pulse 107; Resp 16 S; Pulse Ox 97% on R/A; Pain 10/10; jl7 13:21 Pain 8/10; mh5 13:28 BP 124 / 87; Pulse 92; Resp 17; Pulse Ox 96% on 2 lpm NC; mh5 15:30 BP 107 / 76; Pulse 74; Resp 16; Pulse Ox 97% ; jl7 10:15 Body Mass Index 22.15 (68.04 kg, 175.26 cm) aj Procedures: 14:35 Lumbar Puncture: Patient placed in sitting position. Prepped with Betadine. Draped jr8 using sterile technique. Collected 8 ml's of clear fluid. Sample sent to lab. Puncture site dressed with band aid, Patient tolerated well. MDM: 10:04 [facility] medically screened. [facility] 16:03 Data reviewed: vital signs, nurses notes, lab test result(s), EKG, radiologic studies, jr8 CT scan, plain films. Data interpreted: Pulse oximetry: on room air is 96 %. Counseling: I had a detailed discussion with the patient and/or guardian regarding: the historical points, exam findings, and any diagnostic results supporting the discharge/admit diagnosis, lab results, radiology results, the need to transfer to another facility. ED course: Case was discussed with hospitalist medicine and neurology. Agree that patient could have Guillain [place] syndrome. TP in CSF also found to be elevated. If patient does have this the hospital is unequipped to hand this case as we do not have proper treatment to reverse condition . 16:23 ED course: [facility] does not feel this is Guillain [place]. Declined transfer for higher care [facility] at this time . 16:33 ED course: Dr. Marinelli at [facility] accepted patient for further evaluation . 12/04 10:44 Order name: Basic Metabolic Panel; Complete Time: 13:12/04 10:44 Order name: CBC with Diff; Complete Time: 12:12/04 10:44 Order name: CPK; Complete Time: 13:12/04 10:44 Order name: LFT's; Complete Time: 13:29 12/04 10:44 Order name: Magnesium; Complete Time: 13:29 12/04 10:44 Order name: PT-INR; Complete Time: 12:46 12/04 10:44 Order name: [place]; Complete Time: 13:12/04 10:44 Order name: UDS; Complete Time: 12:20 12/04 10:46 Order name: Lipase; Complete Time: 12:12/04 11:24 Order name: Urine Dipstick--Ancillary (enter results); Complete Time: 13:29 1 12/04 14:32 Order name: CSF Bacterial Antigens (tube 1); Complete Time: 15:16 12/04 14:32 Order name: Csf Culture 12/04 14:32 Order name: Fluid Cell Count,Body; Complete Time: 15:19 12/04 14:32 Order name: Spinal Fluid Profile; Complete Time: 15:34 12/04 10:44 Order name: XRAY Chest (1 view); Complete Time: 11:47 12/04 10:44 Order name: EKG; Complete Time: 10:45 12/04 10:44 Order name: Cardiac monitoring; Complete Time: 12:26 12/04 10:44 Order name: EKG - Nurse/Tech; Complete Time: 12:12/04 10:44 Order name: IV Saline Lock; Complete Time: 12:12/04 10:44 Order name: Labs collected and sent; Complete Time: 12:12/04 10:44 Order name: O2 Per Protocol; Complete Time: 12:12/04 10:44 Order name: O2 Sat Monitoring; Complete Time: 12:12/04 10:45 Order name: CT Head Brain wo Cont; Complete Time: 11:37 12/04 10:44 Order name: Urine Dipstick-Ancillary (obtain specimen); Complete Time: 11:23 12/04 14:32 Order name: LP Consents; Complete Time: 14:32 12/04 14:32 Order name: LP Setup; Complete Time: 14:32 EC:51 Rate is 105 beats/min. Rhythm is regular, Sinus tachycardia. QRS [place] is Normal. [place] jr8 interval is normal at 148 msec. QRS interval is normal at 92 msec. QT interval is prolonged at 452 msec. No Q waves. T waves are Normal. No ST changes noted. Clinical impression: Sinus tachycardia. Interpreted by me. Reviewed by me. Administered Medications: 12:20 Drug: morphine 4 mg Route: IVP; Site: right wrist; jl7 13:15 Follow up: Response: No adverse reaction; Pain is unchanged, physician notified jl7 12:23 Drug: Ativan 1 mg Route: IVP; Site: right wrist; jl7 14:33 Follow up: Response: No adverse reaction jl7 13:29 Drug: morphine 4 mg Route: IVP; Site: right wrist; jl7 14:00 Follow up: Response: No adverse reaction; Pain is decreased jl7 15:47 Drug: KLONopin 1 mg Route: PO; jl7 17:28 Follow up: Response: No adverse reaction jl7 17:43 Drug: [place] 10 mg-325 mg 1 tabs Route: PO; jl7 17:44 Follow up: Response: Medication administered at discharge. jl7 Disposition: 12/05 06:46 Co-signature as Attending Physician, Jorge Zavaleta MD I agree with the assessment and sam plan of care. Disposition: 12/04/17 16:41 Transfer ordered to [facility]. Diagnosis are Weakness, Visual field defects, Possible Guillain [place]or[place] Syndrome . - Reason for transfer: Higher level of care. - Accepting physician is Dr. Graff . - Condition is Stable. - Problem is new. - Symptoms are unchanged. Signatures: Dispatcher [employer] Pam Ruiz, Jorge Lisa RN, MD MD cha Roszak, Josh, PA PA jr8 Greer Khalil RN RN jl7 Corrections: (The following items were deleted from the chart) 12/04 10:56 10:51 Neuro: Orientation: to person, place, time \T\ situation. Mentation: is normal, jr8 Memory: is normal, immediate memory is intact, recent memory is intact, remote memory is intact, Cranial nerves: CN I not tested, CN II- XII are normal as tested, Bilateral peripheral vision loss. Blink reflex absent . extraocular movements are intact, Facial palsy and sensory deficits are absent. Nystagmus is absent. Speech is clear and appropriate. Tongue strength is normal, Cerebellar function: normal finger to nose testing, Motor: moves all fours, strength is 5/5 in all extremities, Sensation: no obvious gross deficits, seizure activity, is not displayed by the patient, Abnormal movements: resting tremor, is located in the right hand and left hand, jr8 10:58 10:51 Head/Face: Normocephalic, atraumatic. ENT: Nares patent. No nasal discharge, no jr8 septal abnormalities noted. Tympanic membranes are normal and external auditory canals are clear. Oropharynx with no redness, swelling, or masses, exudates, or evidence of obstruction, uvula midline. Mucous membranes moist. Neck: Trachea midline, no thyromegaly or masses palpated, and no cervical lymphadenopathy. Supple, full range of motion without nuchal rigidity, or vertebral point tenderness. No Meningismus. Cardiovascular: Regular rate and rhythm with a normal S1 and S2. No gallops, murmurs, or rubs. Normal PMI, no JVD. No pulse deficits. Respiratory: Lungs have equal breath sounds bilaterally, clear to auscultation and percussion. No rales, rhonchi or wheezes noted. No increased work of breathing, no retractions or nasal flaring. Abdomen/GI: Soft, non-tender, with normal bowel sounds. No distension or tympany. No guarding or rebound. No evidence of tenderness throughout. Back: No spinal tenderness. No costovertebral tenderness. Full range of motion. Skin: Warm, dry with normal turgor. Normal color with no rashes, no lesions, and no evidence of cellulitis. MS/ Extremity: Pulses equal, no cyanosis. Neurovascular intact. Full, normal range of motion. jr8 11:11 10:51 Neuro: Orientation: to person, place, time \T\ situation. Mentation: is normal, jr8 Memory: is normal, immediate memory is intact, recent memory is intact, remote memory is intact, Cranial nerves: CN I not tested, CN II- XII are normal as tested, Bilateral peripheral vision loss. Blink reflex absent . extraocular movements are intact, Facial palsy and sensory deficits are absent. Nystagmus is absent. Speech is clear and appropriate. Tongue strength is normal, Cerebellar function: normal finger to nose testing, Motor: moves all fours, strength is 5/5 in all extremities, Sensation: no obvious gross deficits, Deep tendon reflexes are 2+ (normal) in the right bicep, right patellar, left bicep and left patellar, seizure activity, is not displayed by the patient, Abnormal movements: resting tremor, is located in the right hand and left hand, jr8 13:26 12:58 EKG Electrocardiogram ordered. EDMS EDMS 17:17 15:01 Brain Wo Cont+MRI.RAD.BRZ ordered. EDMS EDMS 17:46 16:41 12/04/2017 16:41 Transfer ordered to [facility]. Diagnosis is jl7 Weakness; Visual field defects; Possible Guillain [place]or[place] Syndrome . Reason for transfer: Higher level of care. Accepting physician is Dr. Graff . Condition is Stable. Problem is new. Symptoms are unchanged. jr8
[2017-12-04] MEDS ORDERED: HYDROCODONE/APAP 10/325 TAB ONE (17:27)
[2017-12-04 17:55] VITALS: TEMP 99.4
[2017-12-04 18:00] VITALS: BP 107/76; O2SAT 97
== END 2017-12-04 17:46 | disposition short-term general hospital (02) ==
LOC: ER 09:48
DX: H53.40 Unspecified visual field defects (principal); I10 Essential (primary) hypertension; F41.9 Anxiety disorder, unspecified; F32.9 Major depressive disorder, single episode, unspecified; F17.210 Nicotine dependence, cigarettes, uncomplicated; Z88.1 Allergy status to other antibiotic agents; Z88.2 Allergy status to sulfonamides; Z88.8 Allergy status to other drugs, medicaments and biological substances
CPT/HCPCS: 36415; 62270; 70450; 71045; 80048; 80076; 80178; 80307; 81003; 82550; 82945; 83690; 83735; 84157; 85025; 85610; 86403; 87070; 89050; 93005; 96374; 96375; 99285

== ENCOUNTER 2018-01-30 12:10 | Emergency (ER) | payer SELFPAY ==
--- OUTSIDE RECORDS SUMMARY | 2018-01-30 12:13 | XMS REPORT | Clinical Summary ---
:1970 Author Organization [facility] Address [address] [place] [address] Phone Care Team Providers Name Role Phone Unavailable Primary Care Provider Unavailable Allergies No Known Allergies Current Medications Prescription Sig. Disp. Refills Start Date End Date Status venlafaxine (EFFEXOR-XR) Take 150 mg by Active 150 MG 24 hr capsule mouth daily. QUEtiapine (SEROQUEL) 200 Take 200 mg by Active MG tablet mouth nightly. omeprazole (PRILOSEC) 40 Take 40 mg by mouth Active MG capsule daily. lamoTRIgine (LAMICTAL) Take 400 mg by Active 200 MG tablet mouth daily. clonazePAM (KLONOPIN) 2 Take 2 mg by mouth Active MG tablet 2 (two) times daily as needed for Anxiety. meclizine (ANTIVERT) 25 Take 25 mg by mouth Active MG tablet 3 (three) times daily as needed for Dizziness. dicyclomine (BENTYL) 20 Take 20 mg by mouth 01/04/2014 Active mg tablet 4 (four) times daily as needed. promethazine (PHENERGAN) Take 25 mg by mouth 01/24/2012 Active 25 MG tablet 3 (three) times daily as needed. lithium (LITHOBID) 300 MG Take 600 mg by Active CR tablet mouth nightly. terbinafine HCl (LAMISIL) Take 250 mg by Active 250 mg tablet mouth daily. HYDROcodone-acetaminophen Take 1 tablet by Active (NORCO 10-325) 10-325 mg mouth every 6 (six) per tablet hours as needed for Pain.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s Problem Noted Date Dizziness 12/04/2017 Unsteady gait 12/04/2017 Anxiety 12/04/2017 Recurrent major depressive disorder, in remission (HCC) 12/04/2017 History of Guillain-[place] syndrome 12/04/2017 Chronic pancreatitis (HCC) 12/04/2017 Gait abnormality 12/04/2017 Encounters Date Type Specialty Care Team Description 12/04/2017 - Hospital Encounter General Internal KristinaaGriselda Anxiety; Chronic 2017 Medicine MD Lindsey pancreatitis, Madelaine, Gaby unspecified Anjelica Elder, pancreatitis type ([facility]);Dizziness;Gait Zindani, abnormality;History MD Yvette of Guillain-[place] syndrome;Recurrent major depressive disorder, in remission ([facility]);Unsteady gait;Bipolar depression ([facility]) after 01/29/2017 Family History Medical History Relation Name Comments Heart disease Father Cancer Maternal Grandfather Cancer Maternal Grandmother Relation Name Status Comments Father Maternal Grandfather Maternal Grandmother Social History Tobacco Use Types Packs/Day Years Used Date Current Every Day Smoker 0.5 Smokeless Tobacco: Never Used Alcohol Use Drinks/Week oz/Week Comments No Sex Assigned at Date Recorded Not on file Last Filed Vital Signs Vital Sign Reading Time Taken Blood Pressure 116/68 2017 12:00 PM CDT Pulse 82 2017 12:00 PM CDT Temperature 36.2 C (97.2 F) 2017 12:00 PM CDT Respiratory Rate 16 2017 7:15 AM CDT Oxygen Saturation 96% 2017 12:00 PM CDT Inhaled Oxygen Concentration - - Weight 69.9 kg (154 lb) 12/04/2017 9:41 PM CDT Height 175.3 cm (5' 9") 12/04/2017 9:41 PM CDT Body Mass Index 22.74 12/04/2017 9:41 PM CDT Plan of Treatment Not on file Results EKG-SCANNED (12/09/2017 1:44 PM)MR brain without IV contrast (2017 5:32 AM) 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 TECHNIQUE: Multiplanar, multisequence MR imaging of the brain was performed utilizing the following imaging sequences: Axial T2, FLAIR, GRE, and DWI; sagittal and coronal T1 COMPARISON: None available FINDINGS: The exam is motion degraded. Abnormalities may be obscured. A small focus of right frontal centrum semiovale signal abnormality with an internal focus of calcification or hemosiderin staining may reflect gliosis due to prior inflammatory, ischemic, or post traumatic insult. Absence of other lesions argues against underlying white matter disease (e.g. demyelinating disease). There is no acute infarct, hematoma, extra-axial collection, hydrocephalus, or mass effect. The major vascular flow voids are maintained. There is C1-2 arthropathy with dens sclerosis and cervical spondylosis. There is multifocal sinus mucosal disease without fluid levels. Right nasopharyngeal secretions or a small mucous retention cyst are noted. The mastoid air cells are clear. A left parietal small incidental dermal lesion is present. The sella, orbits, and calvarium are unremarkable. IMPRESSION: 1. Motion degraded exam. 2. No evidence of acute infarct, hemorrhage, or hydrocephalus. 3. Small right frontal centrum semiovale nonspecific signal abnormality, potentially gliosis due to prior insult with internal calcification or hemosiderin staining. Advise neurologic correlation and comparison with prior imaging, if available. 4. Multifocal paranasal sinus mucosal disease. Signed: Yessi Urias MD Report Verified Date/Time:2017 07:15:04 Reading Location: [address] Neuro Reading Room Procedure Note Interface, External Ris In - 2017 7:17 AM CDT FINAL REPORT MRI brain without contrast INDICATION: Lightheadedness, weakness of left lower extremity and left upper extremity and numbness and tingling in hands and feet. TECHNIQUE: Multiplanar, multisequence MR imaging of the brain was performed utilizing the following imaging sequences: Axial T2, FLAIR, GRE, and DWI; sagittal and coronal T1 COMPARISON: None available FINDINGS: The exam is motion degraded. Abnormalities may be obscured. A small focus of right frontal centrum semiovale signal abnormality with an internal focus of calcification or hemosiderin staining may reflect gliosis due to prior inflammatory, ischemic, or post traumatic insult. Absence of other lesions argues against underlying white matter disease (e.g. demyelinating disease). There is no acute infarct, hematoma, extra-axial collection, hydrocephalus, or mass effect. The major vascular flow voids are maintained. There is C1-2 arthropathy with dens sclerosis and cervical spondylosis. There is multifocal sinus mucosal disease without fluid levels. Right nasopharyngeal secretions or a small mucous retention cyst are noted. The mastoid air cells are clear. A left parietal small incidental dermal lesion is present. The sella, orbits, and calvarium are unremarkable. IMPRESSION: 1. Motion degraded exam. 2. No evidence of acute infarct, hemorrhage, or hydrocephalus. 3. Small right frontal centrum semiovale nonspecific signal abnormality, potentially gliosis due to prior insult with internal calcification or hemosiderin staining. Advise neurologic correlation and comparison with prior imaging, if available. 4. Multifocal paranasal sinus mucosal disease. Signed: Yessi Urias MD Report Verified Date/Time: 2017 07:15:04 Reading Location: [address] Neuro Reading Room with platelet count + automated diff (2017 4:48 AM)Only the most recent of2 resultswithin the time period is included. Component Value Ref Range WBC 6.2 3.5 - 10.5 K/L RBC 4.22 (L) 4.63 - 6.08 M/L Hemoglobin 13.0 (L) 13.7 - 17.5 GM/DL Hematocrit 40.2 40.1 - 51.0 % MCV 95.3 (H) 79.0 - 92.2 fL MCH 30.8 25.7 - 32.2 pg MCHC 32.3 32.3 - 36.5 GM/DL RDW 13.2 11.6 - 14.4 % Platelets 212 150 - 450 K/CU MM MPV 10.4 9.4 - 12.4 fL nRBC 0 0 - 0 /100 WBC % Neutros 53 % % Lymphs 31 % % Monos 8 % % Eos 7 % % Baso 1 % # Neutros 3.28 1.78 - 5.38 K/L # Lymphs 1.94 1.32 - 3.57 K/L # Monos 0.49 0.30 - 0.82 K/L # Eos 0.43 0.04 - 0.54 K/L # Baso 0.05 0.01 - 0.08 K/L Immature Granulocytes-Relative 0 0 - 1 % Specimen Performing Laboratory Blood - Arm, Right [facility] [address] [place] [address] CBC with platelet count + automated diff (2017 4:48 AM)Only the most recent of2 resultswithin the time period is included. Specimen Performing Laboratory Blood Narrative The following orders were created for panel order CBC with platelet count + automated diff. Procedure Abnormality Status --------- ------ CBC with platelet count ...[[id number]]AbnormalFinal result Please view results for these tests on the individual orders. Magnesium (2017 4:48 AM)Only the most recent of2 resultswithin the time period is included. Component Value Ref Range Magnesium 2.6 1.6 - 2.6 mg/dL Specimen Performing Laboratory Blood - Arm, [address] [address] Basic metabolic panel (2017 4:48 AM)Only the most recent of2 resultswithin the time period is included. Component Value Ref Range Sodium 136 136 - 145 meq/L Potassium 4.6 3.5 - 5.1 meq/L Chloride 107 98 - 107 meq/L CO2 23 22 - 29 meq/L BUN 13 7 - 21 mg/dL Creatinine 0.81 0.57 - 1.25 mg/dL Glucose 92 70 - 105 mg/dL Calcium 9.3 8.4 - 10.2 mg/dL EGFR 103Comment: ESTIMATED GFR IS NOT ACCURATE mL/min/1.73 sq m CREATININE CLEARANCE IN PREDICTING GLOMERULAR FILTRATION RATE. ESTIMATED GFR IS NOT APPLICABLE FOR DIALYSIS PATIENTS. Specimen Performing Laboratory Blood - Arm, [address] [address] TSH/Free T4 If Indicated (12/05/2017 5:42 AM) Component Value Ref Range TSH 2.05 0.35 - 4.94 uIU/mL Specimen Performing Laboratory Blood [address] [address] Lipase (12/05/2017 5:42 AM) Component Value Ref Range Lipase 96 (H) 8 - 78 U/L Specimen Performing Laboratory Blood [address] [address] [place] level (12/05/2017 5:42 AM) Component Value Ref Range [place] Level 0.6 (L) 0.8 - 1.2 mmol/L Specimen Performing Laboratory Blood [facility] [address] [address] after 01/29/2017
--- OUTSIDE RECORDS SUMMARY | 2018-01-30 12:16 | XMS REPORT | Continuity of Care Document ---
:1970 Author Organization Interface Problems Problem Status Onset Classification Date Comments Source Date Reported ABDOMINAL PAIN Active 02/19/20 [facility] [place] 07/10/19 07/13/2016 [facility] Diagnosis: 17 Generalized abdominal pain LOWER ABD PAIN Active 05/13/20 [place] 14 ABD PAIN, Active 05/13/20 [facility] POSSIBLE ACUTE 14 DIVERTICULITIS Discharge 01/05/20 01/07/2014 [facility] Diagnosis: 14 Abdominal pain NAUSEA OR Active 01/24/20 [facility] VOMITING/ABD PAIN 12 Abdominal pain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 02/21/2017 [place] Anxiety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 02/21/2017 [place] Anxiety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 02/21/2017 depression [place] Depression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 02/21/2017 [place] 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 [place] Guillain-Rogers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 02/21/2017 [place] Nausea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 02/21/2017 [place] Pancreatitis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 02/21/2017 [place] Pancreatitis,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 02/21/2017 acute [place] Abdominal pain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 01/26/2012 [facility] Anxiety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 01/26/2012 [facility] Depression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 01/26/2012 [facility] 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 Nausea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 01/26/2012 [place] Pancreatitis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 01/26/2012 [facility] Bipolar disorder,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 06/03/2014 Kais[facility] Fang unspecified Tension headache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 06/03/2014 K[facility] Fang GERD -Esophageal Active Diagnosis 06/03/2014 K[facility] Fang reflux Chronic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 06/03/2014 K[facility] Fang pancreatitis Allergic rhinitis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 06/03/2014 K[facility] Fang Hypertension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 06/03/2014 Kaisen Fang Diverticulitis of Active Diagnosis 06/03/2014 Kaisen Fang colon ABDMNAL PAIN Active [facility] Medications Medication Details Route Status Patient Ordering Order Source Instructions Provider Date Morphine 2 mg, Route: Inactive IVP, ONCE, 2016 [facility] Dosing Weight 90.909, kg, Priority: STAT, Start date: 07/10/16 0:15:00 DIETITIAN CHIEF, Stop date: 07/10/16 0:15:00 DIETITIAN CHIEF Phenergan 12.5 mg, Inactive Route: IM, 2016 [facility] ONCE, Dosing Weight 90.909, kg, Priority: STAT, Start date: 07/10/16 0:14:00 DIETITIAN CHIEF, Stop date: 07/10/16 0:14:00 DIETITIAN CHIEF Zofran 4 mg, Route: Inactive IVP, Drug 2016 [facility] form: INJ, ONCE, Dosing Weight 90.909, kg, Priority: STAT, Start date: 07/09/16 23:36:00 DIETITIAN CHIEF, Stop date: 07/09/16 23:36:00 DIETITIAN CHIEF Bentyl 20 mg, Route: Inactive IM, ONCE, 2016 [facility] Dosing Weight 90.909, kg, Start date: 07/09/16 22:50:00 DIETITIAN CHIEF, Stop date: 07/09/16 22:50:00 DIETITIAN CHIEF Morphine 4 mg, 1 mL, Inactive Route: IVP, 2016 [facility] Drug form: SOLN, ONCE, Dosing Weight 90.909, kg, Priority: STAT, Start date: 07/09/16 22:05:00 DIETITIAN CHIEF, Stop date: 07/09/16 22:05:00 CSTNotes: (Same as:MORPhine Sulfate) Sodium Chloride 1,000 mL, Inactive 0.154 MEQ/ML 1,000 ml/hr, 2016 [facility] Injectable Infuse Over: 1 Solution hr, Route: IV, ONCE, Priority: STAT, Dosing Weight 90.909 kg, Start date: 07/09/16 22:04:00 DIETITIAN CHIEF, Duration: 1 doses or times, Stop date: 07/09/16 22:04:00 DIETITIAN CHIEF Sodium Chloride 1,000 mL, Inactive 0.154 MEQ/ML 1,000 ml/hr, 2016 [facility] Injectable Infuse Over: 1 Solution hr, Route: IV, 1,000, Drug form: INJ, ONCE, Priority: STAT, Dosing Weight 90.909 kg, Start date: 07/09/16 21:47:00 DIETITIAN CHIEF, Duration: 1 doses or times, Stop date: 07/09/16 21:47:00 DIETITIAN CHIEF Zofran 4 mg, 2 mL, Inactive Route: IVP, 2016 [facility] Drug form: INJ, ONCE, Dosing Weight 90.909, kg, Priority: STAT, Start date: 07/09/16 21:47:00 DIETITIAN CHIEF, Stop date: 07/09/16 21:47:00 CSTNotes: (Same as: Zofran) MEDICATION WASTE Product Size: 4 mg Product Wasted: ___ mg Ativan 1 mg, 0.5 mL, Inactive Route: IVP, 2016 [facility] Drug form: INJ, ONCE, Dosing Weight 90.909, kg, Priority: STAT, Start date: 07/07/16 20:25:00 DIETITIAN CHIEF, Stop date: 07/07/16 20:25:00 CSTNotes: (Same as: Ativan) Morphine 4 mg, 1 mL, Inactive Route: IVP2016 [facility] Drug form: SOLN, ONCE, Dosing Weight 90.909, kg, Priority: STAT, Start date: 07/07/16 20:22:00 DIETITIAN CHIEF, Stop date: 07/07/16 20:22:00 CSTNotes: (Same as:MORPhine Sulfate) Ativan 1 mg, Route: Inactive IVP, Drug 2016 [facility] form: INJ, ONCE, Dosing Weight 90.909, kg, Priority: STAT, Start date: 07/07/16 18:46:00 DIETITIAN CHIEF, Stop date: 07/07/16 18:46:00 DIETITIAN CHIEF Morphine 4 mg, Route: Inactive IVP, ONCE, 2016 [facility] Dosing Weight 90.909, kg, Priority: STAT, Start date: 07/07/16 18:46:00 DIETITIAN CHIEF, Stop date: 07/07/16 18:46:00 DIETITIAN CHIEF Zofran 4 mg, 2 mL, Inactive Route: IVP, 2016 [facility] Drug form: INJ, ONCE, Dosing Weight 90.909, kg, Priority: STAT, Start date: 07/07/16 18:12:00 DIETITIAN CHIEF, Stop date: 07/07/16 18:12:00 CSTNotes: (Same as: Zofran) MEDICATION WASTE Product Size: 4 mg Product Wasted: ___ mg Lactated Ringers 1,000 mL, Inactive 1,000 mL Rate: 1,000 2016 [facility] ml/hr, Infuse over: 1 hr, Route: IV, Dosing Weight 90.909 kg, Total Volume: 1,000, Start date: 07/07/16 18:11:00 DIETITIAN CHIEF, Duration: 1 doses or times, Stop date: 07/07/16 19:10:00 DIETITIAN CHIEF Saline Flush 10 mL, Route: Inactive 0.9% IVP, Drug 2016 [facility] Form: INJ, Dosing Weight 100, kg, PRN, PRN Line Flush, Start date: 07/07/16 17:10:00 DIETITIAN CHIEF, Duration: 30 day, Stop date: 08/06/16 17:09:00 CSTNotes: (Same as: BD Posiflush) Tramadol HCl 1 or 2 tablet Orally Active 50 mg Orally Fang 05/19/ Prachi every 6 hrs 2013 Fang for headache topiramate 25 mg, 1 tab, Inactive Route: PO, 2013 [facility] Drug form: TAB, Bedtime, Dosing Weight 100, kg, Start date: 05/14/14 21:00:00, Duration: 30 day, Stop date: 06/12/14 21:00:00Notes: (Same As: Topamax) "Do Not Crush" Lactulose 667 20 gm=30 ml, Active MG/ML Oral PO, TID, [address] [facility] Solution constipation, # 1,000 mL, 0 Refill(s) pantoprazole 40 mg, 1 tab, Inactive Route: PO, [address] [facility] Drug form: ECTAB, Before Dinner, Dosing Weight 100, kg, Start date: 05/14/14 16:30:00, Duration: 30 day, Stop date: 06/12/14 16:30:00Notes: Tablet should not be chewed or crushed. (Same as: Protonix) Lactulose 667 30 gm, 45 mL, Inactive MG/ML Oral Route: PO, 2013 [facility] Solution Drug Form: SYRP, Dosing Weight 100, kg, Daily, NOW, Start date: 05/14/14 12:30:00, Duration: 30 day, Stop date: 06/13/14 9:00:00Notes: (Same as:Chronulac) Clonidine 0.1 mg, 1 tab, Inactive Hydrochloride Route: PO, [address] [facility] 0.1 MG Oral Drug form: Tablet TAB, BID, Dosing Weight 100, kg, Start date: 05/14/14 9:00:00, Duration: 30 day, Stop date: 06/12/14 17:00:00Notes: (Same As: Catapres) topiramate 25 mg, 1 tab, Inactive Route: PO, 2013 Drug form: TAB, BID, Dosing Weight 100, kg, Start date: 05/14/14 9:00:00, Duration: 30 day, Stop date: 06/12/14 17:00:00Notes: (Same As: Topamax) "Do Not Crush" duloxetine 90 mg, 3 cap, Inactive Route: PO, 2013 [facility] Drug form: DRC, Daily, Dosing Weight 100, kg, Start date: 05/14/14 9:00:00, Duration: 30 day, Stop date: 06/12/14 9:00:00Notes: (Same as: Cymbalta) (Do Not Crush) Flagyl 500 mg, 100 No Longer mL, Route: Active [address] [facility] IVPB, Drug form: INJ, [id number], Start date: 05/13/14 22:00:00, Duration: 30 day, Stop date: 06/12/14 14:00:00Notes: (Same as: Flagyl) Avoid alcohol. Alprazolam 2 MG 2 mg, 2 tab, No Longer Oral Tablet Route: PO, Active [address] [facility] [Xanax] Drug form: TAB, BID, Dosing Weight 100, kg, Start date: 05/13/14 21:30:00, Duration: 30 day, Stop date: 06/12/14 21:00:00Notes: With food or milk (Same as: Xanax) Zofran 4 mg, 2 mL, No Longer Route: IVP, Active [address] [facility] Drug form: INJ, Q6H, PRN Nausea, Start date: 05/13/14 21:01:00, Duration: 30 day, Stop date: 06/12/14 21:00:00Notes: (Same as: Zofran) Cipro 400 mg, 200 No Longer mL, Route: [facility] [address] [facility] IVPB, Drug form: INJ, [id number], Start date: 05/13/14 21:00:00, Duration: 30 day, Stop date: 06/12/14 9:00:00Notes: Do not refrigerate Seroquel 50 mg, 2 tab, No Longer Route: PO, [address] [facility] Drug form: TAB, Bedtime, Dosing Weight 100, kg, Start date: 05/13/14 21:00:00, Duration: 30 day, Stop date: 06/11/14 21:00:00Notes: (Same as: SEROquel) morphine Sulfate 4 mg, 2 mL, No Longer Route: IV, [facility] [address] [facility] Drug form: INJ, Q4H, PRN Pain Score 6-10, Start date: 05/13/14 21:00:00, Duration: 30 day, Stop date: 06/12/14 20:59:00Notes: (Same as:MORPhine Sulfate) Sodium Chloride 1,000 mL, No Longer 0.45% IV 1,000 Rate: 125 [address] [facility] mL ml/hr, Infuse over: 8 hr, Route: IV, Dosing Weight 100 kg, Total Volume: 1,000, Start date: 05/13/14 21:00:00, Duration: 30 day, Stop date: 06/12/14 20:59:00 Singulair 10 mg, 1 tab, No Longer Route: PO, 2013 [facility] Drug form: TAB, Bedtime, Dosing Weight 100, kg, Start date: 05/13/14 21:00:00, Duration: 30 day, Stop date: 06/11/14 21:00:00Notes: (Same as:Singulair) Lamictal 250 mg, 2.5 No Longer tab, Route: [address] [facility] PO, Drug form: TAB, Daily, Dosing Weight 100, kg, Start date: 05/13/14 21:00:00, Duration: 30 day, Stop date: 06/11/14 21:00:00Notes: (Same as:LaMICtal) tramadol 50 mg, 1 tab, No Longer hydrochloride 50 Route: PO, Active 2013 [facility] Oral Tablet Drug form: TAB, Q6H, Dosing Weight 100, kg, PRN Headache, Start date: 05/13/14 18:52:00, Stop date: 05/23/14 17:21:00Notes: Not to exceed 400mg/day. (Same As: Ultram) Zofran ODT 4 mg, 1 tab, No Longer Route: PO, Active [address] [facility] Drug form: TABDIS, Q8H, Dosing Weight 100, kg, PRN as needed for nausea/vomitin g, Start date: 05/13/14 18:51:00, Stop date: 06/12/14 18:50:00Notes: (Same as: Zofran ODT) Bentyl 20 mg, 1 tab, No Longer Route: PO, Active [address] [facility] Drug form: TAB, QID, Dosing Weight 100, kg, PRN Other -See Comment, Start date: 05/13/14 18:50:00, Stop date: 06/12/14 18:49:00, abdominal painNotes: (Same as: Bentyl) topiramate 25 mg 25 mg=1 cap, Active oral capsule PO, BID, 0 2013 Refill(s) Clonidine 0.1 mg, PO, Active Hydrochloride BID, # 60 tab, 2013 0.1 MG Oral 0 Refill(s) Tablet Lamictal 250 mg, PO, Active Daily, 0 2013 Refill(s) quetiapine 50 MG 50 mg=1 tab, Active Oral Tablet PO, Bedtime, # 2013 [Seroquel] 180 tab, 0 Refill(s) montelukast 10 10 mg=1 tab, Active MG Oral Tablet PO, Bedtime, # 2013 [Singulair] 30 tab, 0 Refill(s) tramadol 50 mg=1 tab, Active hydrochloride 50 PO, Q6H, Pain, 2013 [facility] Oral Tablet # 40 tab, 0 Refill(s) duloxetine 60 MG 90 mg, PO, Active Enteric Coated Daily, # 30 [address] [facility] Capsule cap, 0 [Cymbalta] Refill(s) Alprazolam 2 MG 2 mg, PO, BID, Active Oral Tablet 0 Refill(s) [address] [facility] [Xanax] pantoprazole 40 =1 Pack, PO, Active MG Granules Daily, # 30 [address] [facility] [Protonix] ea, 0 Refill(s) [place] 1 tablet as Orally Active 10-325 MG [facility] needed Orally every 2013 Fang 6 hrs Dexilant 1 capsule Orally Active 30 MG Orally [facility] Ka Once a day 2013 Metronidazole 1 tablet Orally Active 500 mg Orally [facility] Ka Three times a 2013 day Cipro 1 tablet Orally Active 500 mg Orally [facility] Ka every 12 hrs 2013 Topiramate 1 tablet Orally Active 25 MG Orally [facility] Ka twice a day 2013 Fang (bid) Clonidine HCl 1 tablet at Orally Active 0.1 MG Orally [facility] bedtime twice a day 2013 Fang (bid) Dicyclomine 20 mg=1 tab, Active Hydrochloride 20 PO, QID, 2013 [facility] Oral Tablet abdominal [Bentyl] pain, # 30 tab, 0 Refill(s) Dicyclomine 20 mg=1 tab, Active Hydrochloride 20 PO, QID, 2013 [facility] Oral Tablet abdominal [Bentyl] pain, # 30 tab, 0 Refill(s) Ondansetron 4 MG 4 mg=1 tab, Active Disintegrating PO, Q8H, [address] [facility] Tablet [Zofran] Nausea and Vomiting, Dissolve tab under tongue, # 10 tab, 0 Refill(s)Speci al Instructions: Dissolve tab under tongue Dilaudid 0.5 mg, Route: Inactive IV, ONCE, 2013 Dosing Weight 100, kg, Priority: STAT, Start date: 01/04/14 14:28:00, Stop date: 01/04/14 14:28:00 Zofran 4 mg, Route: Inactive IVP, Drug 2013 form: INJ, ONCE, Dosing Weight 100, kg, Priority: STAT, Start date: 01/04/14 14:27:00, Stop date: 01/04/14 14:27:00 Hydromorphone 0.5 mg, 0.5 Inactive mL, Route: [address] [facility] IVP, Drug form: INJ, ONCE, Dosing Weight 100, kg, Priority: STAT, Start date: 01/04/14 14:00:00, Stop date: 01/04/14 14:00:00 Sodium Chloride 1,000 mL, Inactive 0.154 MEQ/ML 1,000 ml/hr, [address] [facility] Injectable Infuse Over: 1 Solution hr, Route: IV, 1,000, Drug form: INJ, ONCE, Priority: STAT, Dosing Weight 100 kg, Start date: 01/04/14 11:44:00, Duration: 1 doses or times, Stop date: 01/04/14 11:44:00 Ondansetron 4 mg, 2 mL, Inactive Route: IVP, [address] [facility] Drug form: INJ, ONCE, Dosing Weight 100, kg, Priority: STAT, Start date: 01/04/14 11:44:00, Stop date: 01/04/14 11:44:00Notes: (Same as: Zofran) Lorazepam 1 mg, 0.5 mL, Inactive Route: IVP, [address] [facility] Drug form: INJ, ONCE, Dosing Weight 100, kg, Priority: STAT, Start date: 01/04/14 11:44:00, Stop date: 01/04/14 11:44:00Notes: (Same as: Ativan) Hydromorphone 0.5 mg, 0.5 Inactive mL, Route: [address] [facility] IVP, Drug form: INJ, ONCE, Dosing Weight 100, kg, Priority: STAT, Start date: 01/04/14 11:44:00, Stop date: 01/04/14 11:44:00 Zofran 4 mg, Route: Inactive IVP, Drug [address] [facility] form: INJ, ONCE, Dosing Weight 100, kg, Priority: STAT, Start date: 01/04/14 9:52:00, Stop date: 01/04/14 9:52:00 Phenergan 25 mg 25 mg, 1 tab, PO Active Black oral tablet PO, Q4H, PRN, [address] [facility] 15 tab, Nausea, Substitution Allowed Zofran 4 mg, 2 mL, IVP No Longer Banda Route: IVP, Active [address] [facility] Drug form: INJ, ONCE, kg, Start date: 01/24/12 10:21:00, Stop date: 01/24/12 10:21:00 ketorolac 30 mg, 1 mL, IV No Longer Banda Route: IV, Active [address] [facility] Drug form: INJ, ONCE, kg, Priority: STAT, Start date: 01/24/12 8:29:00, Stop date: 01/24/12 8:29:00 Phenergan + 12.5 mg, 0.5 IVP No Longer Banda Sodium Chloride mL, Route: IVP Central Active [address] [facility] 0.9% IV 20 mL [place], Drug form: INJ, ONCE, kg, PRN Nausea & Vomiting, Start date: 01/24/12 8:27:00 Sodium Chloride 1,000 mL, IV No Longer Banda 0.9% (Bolus) IV Rate: 1,000 Active [address] [facility] 1,000 mL ml/hr, Infuse over: 1 hr, Route: IV, Dosing Weight 100 kg, Total Volume: 1,000, Priority: STAT, Start date: 01/24/12 8:27:00, Duration: 1 doses or times, Stop date: 01/24/12 9:26:00, Bolus DoseBolus Dose Saline Flush 5 ml, Route: IVP No Longer Banda 0.9% IVP, Drug Active [address] [facility] Form: INJ, kg, PRN, PRN Line Flush, Start date: 01/24/12 8:27:00, Duration: 24 hr, Stop date: 01/25/12 8:26:00 Seroquel 1 tablet at Orally Active 50 mg Orally Fang Kaisen bedtime Once a day Fang Lisinopril 1 tablet Orally No Longer 20 MG Orally Fang Kaisen Active Once a day Fang Xanax 1/2 tablet in Orally Active 2 MG Orally Fang Kaisen am and noon, three times a Fang 1 tablet at day (tid) bedtime Singulair 1 tablet in Orally Active 10 MG Orally Fang Kaisen the evening Once a day Fang Protonix 1 tablet Orally No Longer 40 mg Orally Fang Kaisen Active once a day Fang Cymbalta 1 capsule Orally Active 90 Orally Fang Kaisen Once a day Fang Lamictal 1 tablet Orally Active 250 Orally Fang Kaisen once every Fang night Allergies, Adverse Reactions, Alerts Substance Category Reaction Severity Reaction Status Date Comments Source type Reported Lisinopril Adverse abd pain Adverse Active Kaisen Reaction Reaction 4 Fang Bactrim Assertion Drug Active MH allergy [facility] Compazine Assertion shakey Propensity Active MH to adverse [facility] reactions to drug Reglan Assertion shakey Propensity Active MH to adverse [place] reactions to drug sulfa drugs Assertion Drug Active MH allergy [facility] Tape Assertion Drug Active allergy [facility] Immunizations Immunization Date Given Site Status Last Updated Comments Source Results Order Name Results Value Reference Date Interpretation Comments Source Range CHEM PANEL Lipase Lvl 243 unit/L 73 - 393 02/19 [facility] CARDIAC Troponin-I null 0.00 - 07/10 [facility] 0.40 [facility] CARDIAC CK MB null 0.5 - 3.6 07/10 ENZYMES /2016 [facility] CHEM PANEL B/C Ratio 8 6 - 25 07/10 [facility] CHEM PANEL A/G Ratio 1.2 0.7 - 1.6 07/10 [facility] CHEM PANEL Globulin 3.2 g/dL 2.7 - 4.2 07/10 [facility] CHEM PANEL AGAP 11.1 meq/L 10.0 - 07/10 20.0 [facility] CHEM PANEL eGFR 77 07/10 Result Comment: The eGFR is calculated using the CKD-EPI formula. In most young, healthy individuals the eGFR will be >90 mL/ min/1.73m2. The eGFR declines with age. An eGFR of 60-89 may be normal in [facility] mL/min/1.7 /2016 some populations, particularly the elderly, for whom the CKD-EPI formula has not been extensively validated. Use of the eGFR is not recommended in the following populations: [place] [id number] Individuals with unstable creatinine concentrations, including patients [...] Phos 53 unit/L 39 - 136 07/10 [facility] CHEM PANEL Bili Total 0.3 mg/dL 0.2 - 1.3 07/10 [facility] CHEM PANEL ALT 25 unit/L 0 - 65 07/10 [facility] CHEM PANEL AST 12 unit/L 0 - 37 07/10 [facility] CHEM PANEL BUN 9 mg/dL 7 - 22 07/10 [facility] CHEM PANEL Glucose Lvl 97 mg/dL 70 - 99 07/10 [facility] CHEM PANEL Total 7.1 g/dL 6.4 - 8.4 07/10 [facility] CHEM PANEL Albumin Lvl 3.9 g/dL 3.5 - 5.0 07/10 [facility] CHEM PANEL Potassium 4.1 meq/L 3.5 - 5.1 07/10 Lvl [facility] CHEM PANEL Creatinine 1.15 mg/dL 0.50 - 07/10 Lvl 1.40 [facility] CHEM PANEL Sodium Lvl 138 meq/L 135 - 145 07/10 [facility] CHEM PANEL Chloride Lvl 104 meq/L 95 - 109 07/10 [facility] CHEM PANEL CO2 27 meq/L 24 - 32 07/10 [facility] CHEM PANEL Calcium Lvl 8.8 mg/dL 8.5 - 10.5 07/10 [facility] CHEM PANEL Lipase Lvl 336 unit/L 73 - 393 07/10 [facility] HEMATOLOGY Lymphocytes 1.6 K/CMM 1.0 - 5.5 07/10 [facility] HEMATOLOGY Eosinophils 0.2 K/CMM 0.0 - 0.5 07/10 [facility] HEMATOLOGY Monocytes # 0.5 K/CMM 0.0 - 0.8 07/10 [facility] HEMATOLOGY Segs-Bands # 6.4 K/CMM 1.5 - 8.1 07/10 [facility] HEMATOLOGY Basophils # 0.0 K/CMM 0.0 - 0.2 07/10 [facility] HEMATOLOGY Basophils 0.5 % 0.0 - 1.0 07/10 [facility] HEMATOLOGY Monocytes 6.0 % 2.0 - 12.0 07/10 [facility] HEMATOLOGY Eosinophils 1.8 % 0.0 - 4.0 07/10 [facility] HEMATOLOGY Segs 72.9 % 45.0 - 07/10 MH 75.0 /2016 [facility] HEMATOLOGY Lymphocytes 18.8 % 20.0 - 07/10 MH 40.0 /2016 [facility] HEMATOLOGY Platelet 235 K/CMM 133 - 450 07/10 [facility] HEMATOLOGY MPV 8.1 fL 7.4 - 10.4 07/10 [facility] HEMATOLOGY MCHC 33.4 g/dL 32.0 - 07/10 MH 36.0 /2016 [facility] HEMATOLOGY RDW 13.2 % 11.5 - 07/10 MH 14.5 /2016 [facility] HEMATOLOGY Hct 41.7 % 42.0 - 07/10 [facility] 54.0 /2016 [facility] HEMATOLOGY MCH 30.4 pg 27.0 - 07/10 [facility] 31.0 [facility] HEMATOLOGY MCV 91.2 fL 80.0 - 07/10 94.0 [facility] HEMATOLOGY WBC 8.7 K/CMM 3.7 - 10.4 07/10 [facility] HEMATOLOGY Hgb 13.9 g/dL 14.0 - 07/10 18.0 [facility] HEMATOLOGY RBC 4.57 M/CMM 4.70 - 07/10 MH 6.10 /2016 [facility] URINE AND UA pH 7.0 5.0 - 8.0 07/10 STOOL [facility] URINE AND UA Glucose Negative Negative 07/10 [facility] mg/dL mg/dL /2016 [facility] URINE AND UA Protein Negative Negative 07/10 [facility] mg/dL mg/dL /2016 [facility] URINE AND UA <=1.0 0.1 - 1.0 07/10 [facility] Urobilinogen mg/dL /2016 [facility] URINE AND UA Turbidity Clear Clear 07/10 STOOL [facility] (07/09/16 8:42 PM) URINE AND UA Spec Grav 1.003 <=1.030 07/10 STOOL [facility] URINE AND UA Color Light Yellow Yellow 07/10 STOOL [facility] *NA* (07/09/16 8:42 PM) URINE AND UA Blood Small Negative 07/10 [facility] *ABN* (07/09/16 8:42 PM) URINE AND UA Bili Negative Negative 07/10 [facility] *NA* (07/09/16 8:42 PM) URINE AND UA Ketones Negative Negative 07/10 [facility] mg/dL mg/dL /2016 [facility] URINE AND UA RBC null 0 - 2 07/10 STOOL [facility] URINE AND UA WBC null 0 - 5 07/10 [facility] URINE AND UA Sq Epi Few /LPF Few /LPF 07/10 [facility] URINE AND UA Leuk Est Negative Negative 07/10 STOOL [facility] (07/09/16 8:42 PM) URINE AND UA Nitrite Negative Negative 07/10 STOOL [facility] (07/09/16 8:42 PM) Abdomen 2 Abdomen 2 Study: 2 views of abdomen 07/09 - views DX views DX - [facility] History: Abdominal pain Read by: Gema Brock [...] 2.6 mg/dL 1.8 - 2.4 07/08 Lvl [facility] CHEM PANEL Lipase Lvl 248 unit/L 73 - 393 07/08 [facility] CHEM PANEL Amylase Lvl 79 unit/L 25 - 115 07/08 [facility] CHEM PANEL A/G Ratio 1.2 0.7 - 1.6 07/08 [facility] CHEM PANEL Globulin 3.5 g/dL 2.7 - 4.2 07/08 [facility] CHEM PANEL Bili Total 0.4 mg/dL 0.2 - 1.3 07/08 [facility] CHEM PANEL B/C Ratio 9 6 - 25 07/08 [facility] CHEM PANEL AGAP 8.9 meq/L 10.0 - 07/08 20.0 [facility] CHEM PANEL eGFR 95 07/08 Result Comment: The eGFR is calculated using the CKD-EPI formula. In most young, healthy individuals the eGFR will be >90 mL/ min/1.73m2. The eGFR declines with age. An eGFR of 60-89 may be normal in mL/min/1.7 2017 some populations, particularly the elderly, for whom the CKD-EPI formula has not been extensively validated. Use of the eGFR is not recommended in the following populations: [place] 3m2 Individuals with unstable creatinine concentrations, [...] Lvl 78 mg/dL 70 - 99 07/08 [facility] CHEM PANEL BUN 9 mg/dL 7 - 22 07/08 [place] CHEM PANEL CO2 30 meq/L 24 - 32 07/08 [facility] CHEM PANEL Alk Phos 54 unit/L 39 - 136 07/08 [facility] CHEM PANEL Calcium Lvl 8.9 mg/dL 8.5 - 10.5 07/08 [facility] CHEM PANEL Sodium Lvl 139 meq/L 135 - 145 07/08 [facility] CHEM PANEL Creatinine 0.96 mg/dL 0.50 - 07/08 Lvl 1.40 [facility] CHEM PANEL Albumin Lvl 4.1 g/dL 3.5 - 5.0 07/08 [facility] CHEM PANEL Total 7.6 g/dL 6.4 - 8.4 07/08 [facility] CHEM PANEL Potassium 3.9 meq/L 3.5 - 5.1 07/08 Lvl [facility] CHEM PANEL Chloride Lvl 104 meq/L 95 - 109 07/08 [facility] CHEM PANEL AST 9 unit/L 0 - 37 07/08 [facility] CHEM PANEL ALT 25 unit/L 0 - 65 07/08 [facility] HEMATOLOGY Eosinophils 0.1 K/CMM 0.0 - 0.5 07/08 [facility] HEMATOLOGY Basophils # 0.0 K/CMM 0.0 - 0.2 07/08 [facility] HEMATOLOGY Lymphocytes 1.8 K/CMM 1.0 - 5.5 07/08 [facility] HEMATOLOGY Monocytes # 0.4 K/CMM 0.0 - 0.8 07/08 [facility] HEMATOLOGY Eosinophils 1.5 % 0.0 - 4.0 07/08 [facility] HEMATOLOGY Basophils 0.4 % 0.0 - 1.0 07/08 [facility] HEMATOLOGY Segs-Bands # 4.6 K/CMM 1.5 - 8.1 07/08 [facility] HEMATOLOGY Monocytes 5.5 % 2.0 - 12.0 07/08 [facility] HEMATOLOGY Segs 66.8 % 45.0 - 07/08 MH 75.0 /2016 [facility] HEMATOLOGY Lymphocytes 25.8 % 20.0 - 07/08 MH 40.0 /2016 [facility] HEMATOLOGY MPV 8.4 fL 7.4 - 10.4 07/08 [facility] HEMATOLOGY MCH 30.0 pg 27.0 - 07/08 MH 31.0 [facility] HEMATOLOGY MCHC 32.7 g/dL 32.0 - 07/08 MH 36.0 /2016 [facility] HEMATOLOGY RDW 13.7 % 11.5 - 07/08 MH 14.5 /2016 [facility] HEMATOLOGY Platelet 277 K/CMM 133 - 450 07/08 [facility] HEMATOLOGY MCV 91.8 fL 80.0 - 07/08 94.0 [facility] HEMATOLOGY RBC 4.94 M/CMM 4.70 - 07/08 6.10 [facility] HEMATOLOGY WBC 6.9 K/CMM 3.7 - 10.4 07/08 [facility] HEMATOLOGY Hct 45.4 % 42.0 - 07/08 54.0 [facility] HEMATOLOGY Hgb 14.8 g/dL 14.0 - 07/08 18.0 [facility] URINE AND UA <=1.0 0.1 - 1.0 07/08 [facility] Urobilinogen mg/dL /2016 [facility] URINE AND UA Sq Epi None Seen 07/08 STOOL [facility] URINE AND UA Bacteria Occasional None Seen 07/08 [facility] /HPF /HPF /2016 [facility] URINE AND UA Nitrite Negative Negative 07/08 STOOL [facility] (07/07/16 6:15 PM) URINE AND UA Leuk Est Negative Negative 07/08 [facility]OOL [facility] (07/07/16 6:15 PM) URINE AND UA Bili Negative Negative 07/08 [facility] *NA* (07/07/16 6:15 PM) URINE AND UA Blood Small Negative 07/08 [facility]OOL [facility] *ABN* (07/07/16 6:15 PM) URINE AND UA Ketones Negative Negative 07/08 [facility] mg/dL mg/dL /2016 [facility] URINE AND UA Glucose Negative Negative 07/08 [facility] mg/dL mg/dL /2016 [facility] URINE AND UA Protein Negative Negative 07/08 [facility] mg/dL mg/dL [facility] URINE AND UA Color Colorless Yellow 07/08 [facility] *NA* (07/07/16 6:15 PM) URINE AND UA WBC null 0 - 5 07/08 [facility] URINE AND UA Turbidity Clear Clear 07/08 [facility] (07/07/16 6:15 PM) URINE AND UA pH 7.0 5.0 - 8.0 07/08 [facility] URINE AND UA Spec Grav 1.002 <=1.030 07/08 [facility] URINE AND UA <=1.0 0.1 - 1.0 05/14 [facility] Urobilinogen mg/dL [facility] URINE AND UA Color Ltyellow 05/14 [facility] URINE AND UA Spec Grav 1.006 <=1.030 05/14 [facility] URINE AND UA Glucose Negative Negative 05/14 [facility] mg/dL mg/dL [facility] URINE AND UA pH 7.0 5.0 - 8.0 05/14 [facility] URINE AND UA Turbidity Clear Clear 05/14 [facility] (05/14/14 8:48 AM) URINE AND UA Sq Epi None Seen 05/14 [facility] URINE AND UA Protein Negative Negative 05/14 [facility] mg/dL mg/dL [facility] URINE AND UA Leuk Est Negative Negative 05/14 [facility] (05/14/14 8:48 AM) URINE AND UA WBC null 0 - 5 05/14 [facility] URINE AND UA Nitrite Negative Negative 05/14 [facility] (05/14/14 8:48 AM) URINE AND UA Blood Negative Negative 05/14 [facility] (05/14/14 8:48 AM) URINE AND UA Bili Negative Negative 05/14 [facility] *NA* (05/14/14 8:48 AM) URINE AND UA Ketones Negative Negative 05/14 [facility] mg/dL mg/dL [facility] Abdomen/Pe Abdomen/Pelv I. CT SCAN of the ABDOMEN with CONTRAST 05/14 - lvis w IV is w IV /2013 - [facility] contrast contrast CT II. CT SCAN of [...] Lvl 31 ng/mL 22 - 275 05/14 STUDY /2013 [facility] ANEMIA Folate Lvl 15.7 ng/mL >=3.0 05/14 [facility] ng/mL /2013 [facility] ANEMIA UIBC 282 ug/dl 110 - 370 05/14 [facility] ANEMIA % [place] Fe 21 % 12 - 57 05/14 [facility] ANEMIA Iron 76 ug/dl 45 - 160 05/14 [facility] ANEMIA TIBC 358 ug/dl 228 - 428 05/14 [facility] ANEMIA Vitamin B12 510 pg/mL 254 - 1320 05/14 [facility] CHEM PANEL Lipase Lvl 170 unit/L 73 - 393 05/14 [facility] ELECTROLYT Chloride Lvl 105 meq/L 95 - 109 05/14 [facility] ELECTROLYT Sodium Lvl 141 meq/L 135 - 145 05/14 [facility] ELECTROLYT Potassium 3.7 meq/L 3.5 - 5.1 05/14 [facility] ELECTROLYT eGFR 82 05/14 1Result Comment: The [...] is not recommended in the following populations: [facility] 3m2 Individuals with unstable creatinine concentrations, including [...] AST 17 unit/L 0 - 37 05/14 [facility] ELECTROLYT ALT 25 unit/L 0 - 65 05/14 [facility] ELECTROLYT Creatinine 1.1 mg/dL 0.5 - 1.4 05/14 [facility] ELECTROLYT Glucose Lvl 85 mg/dL 70 - 99 05/14 2Interpretive Data: Adult reference range values reflect the clinical guidelines of the [place] [employer]. [facility] ELECTROLYT BUN 6 mg/dL 7 - 22 05/14 [facility] ELECTROLYT Albumin Lvl 3.6 g/dL 3.5 - 5.0 05/14 [facility] ELECTROLYT Total 6.6 g/dL 6.4 - 8.4 05/14 [facility] ELECTROLYT Calcium Lvl 8.5 mg/dL 8.5 [...] ELECTROLYT A/G Ratio 1.2 0.7 - 1.6 05/14 [facility] ELECTROLYT AGAP 8.7 meq/L 10.0 - 05/14 ES 20.0 [facility] HEMATOLOGY Segs-Bands # 2.1 K/CMM 1.5 - 8.1 05/14 [facility] HEMATOLOGY Eosinophils 8.1 % 0.0 - 4.0 05/14 [facility] HEMATOLOGY Monocytes 9.1 % 2.0 - 12.0 05/14 [facility] HEMATOLOGY Lymphocytes 38.2 % 20.0 - 05/14 40.0 [facility] HEMATOLOGY Monocytes # 0.4 K/CMM 0.0 - 0.8 05/14 [facility] HEMATOLOGY Eosinophils 0.4 K/CMM 0.0 - 0.5 05/14 # /2013 [facility] HEMATOLOGY Basophils 0.5 % 0.0 - 1.0 05/14 [facility] HEMATOLOGY Lymphocytes 1.8 K/CMM 1.0 - 5.5 05/14 # /2013 [facility] HEMATOLOGY Segs 44.1 % 45.0 - 05/14 75.0 [facility] HEMATOLOGY Sed Rate 8 mm/h 0 - 15 05/14 [facility] HEMATOLOGY Hgb 12.8 g/dL 14.0 - 05/14 18.0 [facility] HEMATOLOGY MCH 30.1 pg 27.0 - 05/14 31.0 /2013 [facility] HEMATOLOGY RBC 4.26 M/CMM 4.70 - 05/14 6.10 [facility] HEMATOLOGY Hct 38.5 % 42.0 - 05/14 MH 54.0 [facility] HEMATOLOGY RDW 13.1 % 11.5 - 05/14 MH 14.5 [facility] HEMATOLOGY Platelet 204 K/CMM 133 - 450 05/14 [facility] HEMATOLOGY MCV 90.4 fL 80.0 - 05/14 94.0 [facility] HEMATOLOGY MCHC 33.3 g/dL 32.0 - 05/14 MH 36.0 [facility] HEMATOLOGY MPV 9.1 fL 7.4 - 10.4 05/14 [facility] HEMATOLOGY WBC 4.8 K/CMM 3.7 - 10.4 05/14 [facility] IMMUNOLOGY C-REACTIVE 9.1 mg/L <=2.9 mg/L 05/14 PROTEIN [facility] URINE AND Occult Bld Negative Negative 01/04 [facility] Stl [facility] (01/04/14 11:41 AM) CHEM PANEL Lipase Lvl 193 unit/L 73 - 393 01/04 [facility] CHEM PANEL Amylase Lvl 57 unit/L 25 - 115 01/04 [facility] CHEM PANEL eGFR 74 01/04 1Result Comment: [...] is not recommended in the following populations: [facility] 3m2 Individuals with unstable creatinine concentrations, including [...] Lvl 9.5 mg/dL 8.5 - 10.5 01/04 [facility] CHEM PANEL CO2 28 meq/L 24 - 32 01/04 [facility] CHEM PANEL Albumin Lvl 4.1 g/dL 3.5 - 5.0 01/04 [facility] CHEM PANEL Total 7.6 g/dL 6.4 - 8.4 01/04 [facility] CHEM PANEL ALT 18 unit/L 0 - 65 01/04 [facility] CHEM PANEL Sodium Lvl 140 meq/L 135 - 145 01/04 [facility] CHEM PANEL Potassium 3.4 meq/L 3.5 - 5.1 01/04 [facility] CHEM PANEL Chloride Lvl 104 meq/L 95 - 109 01/04 [facility] CHEM PANEL Bili Total 0.3 mg/dL 0.2 - 1.3 01/04 [facility] CHEM PANEL Alk Phos 74 unit/L 39 - 136 01/04 [facility] CHEM PANEL AST 13 unit/L 0 - 37 01/04 [facility] CHEM PANEL Glucose Lvl 91 mg/dL 70 - 99 01/04 2Interpretive Data: Adult reference range values reflect the clinical guidelines of the [place] [employer]. [facility] CHEM PANEL BUN 6 mg/dL 7 - 22 01/04 [facility] CHEM PANEL Creatinine 1.2 mg/dL 0.5 - 1.4 01/04 [facility] CHEM PANEL A/G Ratio 1.2 0.7 - 1.6 01/04 [facility] CHEM PANEL Globulin 3.5 g/dL 2.0 - 4.0 01/04 [facility] CHEM PANEL B/C Ratio 5 6 - 25 01/04 [facility] CHEM PANEL AGAP 11.4 meq/L 10.0 - 01/04 20.0 [facility] HEMATOLOGY MCH 29.5 pg 27.0 - 01/04 31.0 [facility] HEMATOLOGY Hgb 14.4 g/dL 14.0 - 01/04 18.0 [facility] HEMATOLOGY Hct 43.3 % 42.0 - 01/04 54.0 /2013 [facility] HEMATOLOGY MCV 88.6 fL 80.0 - 01/04 94.0 [facility] HEMATOLOGY Platelet 231 K/CMM 133 - 450 01/04 [facility] HEMATOLOGY WBC 10.0 K/CMM 3.7 - 10.4 01/04 [facility] HEMATOLOGY RBC 4.89 M/CMM 4.70 - 01/04 MH 6.10 [facility] HEMATOLOGY MPV 8.9 fL 7.4 - 10.4 01/04 [facility] HEMATOLOGY MCHC 33.3 g/dL 32.0 - 01/04 MH 36.0 /2013 [facility] HEMATOLOGY RDW 13.5 % 11.5 - 01/04 MH 14.5 /2013 [facility] HEMATOLOGY Basophils # 0.1 K/CMM 0.0 - 0.2 01/04 /2013 [facility] HEMATOLOGY Segs 77.0 % 45.0 - 01/04 MH 75.0 /2013 [facility] HEMATOLOGY Lymphocytes 13.4 % 20.0 - 01/04 MH 40.0 /2013 [facility] HEMATOLOGY Eosinophils 1.6 % 0.0 - 4.0 01/04 /2013 [facility] HEMATOLOGY Monocytes 7.3 % 2.0 - 12.0 01/04 [facility] HEMATOLOGY Segs-Bands # 7.7 K/CMM 1.5 - 8.1 01/04 [facility] HEMATOLOGY Basophils 0.7 % 0.0 - 1.0 01/04 [facility] HEMATOLOGY Lymphocytes 1.3 K/CMM 1.0 - 5.5 01/04 MH # /2013 [facility] HEMATOLOGY Monocytes # 0.7 K/CMM 0.0 - 0.8 01/04 [facility] HEMATOLOGY Eosinophils 0.2 K/CMM 0.0 - 0.5 01/04 MH # /2013 [facility] URINE AND UA Bacteria Occasional None Seen 01/04 [facility] /HPF /HPF /2013 [facility] URINE AND UA Sq Epi Occasional Few /LPF 01/04 [facility] /LPF /2013 [facility] URINE AND UA Nitrite Negative Negative 01/04 [facility] (01/04/14 9:00 AM) URINE AND UA Bili Negative Negative 01/04 [facility] *NA* (01/04/14 9:00 AM) URINE AND UA Blood Negative Negative 01/04 [facility] (01/04/14 9:00 AM) URINE AND UA Protein Negative Negative 01/04 [facility] (01/04/14 9:00 AM) URINE AND UA Glucose Negative Negative 01/04 [facility] (01/04/14 9:00 AM) URINE AND UA 0.2 EU/dL 0.1 - 1.0 01/04 [facility] Urobilinogen [facility] URINE AND UA Ketones Negative Negative 01/04 [facility] *NA* (01/04/14 9:00 AM) URINE AND UA Color Yellow Yellow 01/04 [facility] *NA* (01/04/14 9:00 AM) URINE AND UA Turbidity Clear Clear 01/04 [facility] (01/04/14 9:00 AM) URINE AND UA Spec Grav <=1.005 <=1.030 01/04 [facility]
*NA*< [facility] br/>( 9:00 AM) URINE AND UA pH 7.5 5.0 - 8.0 01/04 [facility] URINE AND UA Leuk Est Negative Negative 01/04 ST[facility]OL [facility] (01/04/14 9:00 AM) Abdomen/Pe Abdomen/Pelv CT Abdomen with Contrast, CT Pelvis with Contrast: 01/04 - lvis w IV is w - contrast contrast CT CT TECHNIQUE: Contiguous [...] 218 unit/L 73 - 393 01/23 Normal [facility] CHEMISTRY AST 10 unit/L 0 - 37 01/23 Normal [facility] CHEMISTRY Calcium Lvl 8.4 mg/dL 8.5 - 10.5 01/23 LOW [facility] CHEMISTRY CO2 25 meq/L 24 - 32 01/23 Normal [facility] CHEMISTRY Total 6.8 g/dL 6.4 - 8.4 08/16 Normal MH [facility] CHEMISTRY Bili Total 0.2 mg/dL 0.2 - 1.3 01/23 Normal [facility] CHEMISTRY Albumin Lvl 3.6 g/dL 3.5 - 5.0 01/23 Normal [facility] CHEMISTRY Alk Phos 53 unit/L 39 - 136 01/23 Normal [facility] CHEMISTRY ALT 29 unit/L 0 - 65 01/23 Normal [facility] CHEMISTRY Glucose Lvl 86 mg/dL 70 - 99 01/23 Normal 1Interpretive Data: Adult reference range values reflect the clinical guidelines of the [place] [employer]. [facility] CHEMISTRY BUN 10 mg/dL 7 - 22 01/23 Normal [facility] CHEMISTRY Creatinine 1.0 mg/dL 0.5 - 1.4 01/23 Normal [facility] CHEMISTRY Potassium 3.6 meq/L 3.5 - 5.1 01/23 Normal [facility] CHEMISTRY Sodium Lvl 141 meq/L 135 - 145 01/23 Normal [facility] CHEMISTRY Chloride Lvl 108 meq/L 95 - 109 01/23 Normal [facility] CHEMISTRY AGAP 11.6 meq/L 10.0 - 01/23 Normal MH 20.0 [facility] CHEMISTRY B/C Ratio 10 6 - 25 01/23 Normal [facility] CHEMISTRY Globulin 3.2 g/dL 2.0 - 4.0 01/23 Normal [facility] CHEMISTRY A/G Ratio 1.1 0.7 - 1.6 01/23 Normal [facility] HEMATOLOGY Platelet 247 K/CMM 133 - 450 01/23 Normal [facility] HEMATOLOGY MPV 8.6 fL 7.4 - 10.4 01/23 Normal [facility] HEMATOLOGY RDW 14.9 % 11.5 - 01/23 HI MH 14.5 /2011 [facility] HEMATOLOGY MCHC 33.5 g/dL 32.0 - 01/23 Normal MH 36.0 [facility] HEMATOLOGY Hct 35.2 % 42.0 - 01/23 LOW MH 54.0 [facility] HEMATOLOGY MCV 85.8 fL 80.0 - 01/23 Normal MH 94.0 [facility] HEMATOLOGY MCH 28.7 pg 27.0 - 01/23 Normal MH 31.0 [facility] HEMATOLOGY RBC 4.10 M/CMM 4.70 - 01/23 LOW MH 6.10 [facility] HEMATOLOGY Hgb 11.8 g/dL 14.0 - 08 LOW 18.0 /2012 [facility] HEMATOLOGY WBC 4.1 K/CMM 3.7 - 10.4 / Normal /2011 [facility] HEMATOLOGY Basophils # 0.0 K/CMM 0.0 - 0.2 / Normal /2011 [facility] HEMATOLOGY Segs-Bands # 2.4 K/CMM 1.5 - 8.1 01/23 Normal /2011 [facility] HEMATOLOGY Lymphocytes 1.0 K/CMM 1.0 - 5.5 08/ Normal /2011 [facility] HEMATOLOGY Eosinophils 0.2 K/CMM 0.0 - 0.5 08/ Normal # /2011 [facility] HEMATOLOGY Monocytes # 0.4 K/CMM 0.0 - 0.8 01/23 Normal /2011 [facility] HEMATOLOGY Basophils 0.2 % 0.0 - 1.0 01/23 Normal /2011 [facility] HEMATOLOGY Segs 58.4 % 45.0 - 08 Normal 75.0 /2011 [facility] HEMATOLOGY Lymphocytes 25.2 % 20.0 - 08 Normal 40.0 [facility] HEMATOLOGY Monocytes 10.4 % 2.0 - 12.0 01/23 Normal [facility] HEMATOLOGY Eosinophils 5.8 % 0.0 - 4.0 08/ HI /2011 [facility] Vital Signs Vital Sign Value Date Comments Source Temperature Oral (F) 98.7 F 07/10/2016 [facility] Heart Rate 86 07/10/2016 [facility] Respitory Rate 15 07/10/2016 [facility] Systolic (mm Hg) 122 07/10/2016 [facility] Diastolic (mm Hg) 82 07/10/2016 [facility] Respitory Rate 18 07/10/2016 [facility] Heart Rate 87 07/10/2016 [facility] Systolic (mm Hg) 114 07/10/2016 [facility] Diastolic (mm Hg) 87 07/10/2016 [facility] Systolic (mm Hg) 134 07/10/2016 [facility] Diastolic (mm Hg) 95 07/10/2016 [facility] Heart Rate 98 07/10/2016 [facility] Respitory Rate 18 07/10/2016 [facility] Weight 90.909 07/10/2016 [facility] Temperature Oral (F) 99.0 F 07/10/2016 [facility] Respitory Rate 18 07/08/2016 [facility] Temperature Oral (F) 98.5 F 07/08/2016 [facility] Systolic (mm Hg) 134 07/08/2016 [facility] Diastolic (mm Hg) 94 07/08/2016 [facility] Heart Rate 79 07/08/2016 [facility] Systolic (mm Hg) 148 07/08/2016 [facility] Diastolic (mm Hg) 83 07/08/2016 [facility] Respitory Rate 20 07/08/2016 [facility] Heart Rate 81 07/08/2016 [facility] BMI Calculated 29.6 07/07/2016 [facility] Weight 90.909 07/07/2016 [facility] Temperature Oral (F) 98.1 F 07/07/2016 [facility] Height 175.26 cm 07/07/2016 [facility] Heart Rate 90 07/07/2016 [facility] Systolic (mm Hg) 139 07/07/2016 [facility] Diastolic (mm Hg) 90 07/07/2016 [facility] Respitory Rate 20 07/07/2016 [facility] Diastolic (mm Hg) 72 05/14/2014 [facility] Systolic (mm Hg) 105 05/14/2014 [facility] Respitory Rate 18 05/14/2014 [facility] Temperature Oral (F) 98.4 F 05/14/2014 [facility] Heart Rate 84 05/14/2014 [facility] Systolic (mm Hg) 100 05/14/2014 [facility] Diastolic (mm Hg) 63 05/14/2014 [facility] Heart Rate 75 05/14/2014 [facility] Temperature Oral (F) 97.8 F 05/14/2014 [facility] Respitory Rate 18 05/14/2014 [facility] Temperature Oral (F) 97.9 F 05/14/2014 [facility] Heart Rate 66 05/14/2014 [facility] Respitory Rate 17 05/14/2014 [facility] Systolic (mm Hg) 100 05/14/2014 [facility] Diastolic (mm Hg) 67 05/14/2014 [facility] Weight 100 05/13/2014 [facility] Height 175.26 cm 05/13/2014 [facility] BMI Calculated 32.56 05/13/2014 [facility] BMI Calculated 32.56 05/13/2014 [facility] Height 175.26 cm 05/13/2014 [facility] Weight 100 05/13/2014 [facility] Weight 194.5 05/12/2014 [facility] Height 68.6 05/12/2014 [facility] Temperature Oral (F) 98.6 F 05/12/2014 Kais[facility] Heart Rate 83 05/12/2014 Kais[facility] Fang Diastolic (mm Hg) 82 05/12/2014 Kaisen Fang Systolic (mm Hg) 128 05/12/2014 Dbisen [facility] Respitory Rate 20 05/12/2014 [facility] Weight 195.2 04/19/2014 [facility] Height 68.6 04/19/2014 Pr[facility] Temperature Oral (F) 98.6 F 04/19/2014 Dbisen Dwayneg Heart Rate 95 04/19/2014 Dbisen Fang Diastolic (mm Hg) 95 04/19/2014 Prachi Fang Systolic (mm Hg) 136 04/19/2014 [facility] Respitory Rate 18 04/19/2014 [facility] 114 01/04/2014 [facility] Respitory Rate 18 01/04/2014 [facility] Diastolic (mm Hg) 69 01/04/2014 [facility] Diastolic (mm Hg) 68 01/04/2014 [facility] Heart Rate 83 01/04/2014 [facility] Respitory Rate 18 01/04/2014 [facility] Systolic (mm Hg) 115 01/04/2014 [facility] Heart Rate 91 01/04/2014 [facility] Respitory Rate 18 01/04/2014 [facility] BMI Calculated 32.56 01/04/2014 [facility] Height 175.26 cm 01/04/2014 [facility] Weight 100 01/04/2014 [facility] Temperature Oral (F) 98.4 F 01/04/2014 [facility] Diastolic (mm Hg) 81 01/04/2014 [facility] Systolic (mm Hg) 136 01/04/2014 [facility] Heart Rate 144 01/04/2014 [facility] Weight 100.000 01/24/2012 [facility] Height 175.26 cm 01/24/2012 [facility] Encounters Location Location Encounter Encounter Reason Attending ADM DC Status Source Details Type Number For Provider Date Date Visit Emergency [id number] SAMIR 01/23 01/23 Active [place] /2011 [facility] EC [id number] Samir Johnsone 01/04 01/04 [place] [facility] /2013 [facility] Prachi Initial [id number] 04/19 04/19 Prachi Guzmán MD visit [id number] /2013 [facility] [id number] Prachi Initial [id number] 04/19 04/19 Prachi Guzmán MD visit [id number] /2013 [facility] [id number] Prachi Sick Visit [id number] 05/12 05/12 Prachi Guzmán MD - Follow up [id number] /2013 [facility] for [id number] multiple problems [facility] Inpatient [id number] Prachi 05/13 05/14 ARON Guzmán /2013 [facility] Emergency [id number] Coy 07/07 07/08 ARON Burt /2016 [facility] Emergency [id number] Coy 07/10 07/10 ARON Burt /2016 [facility] Outpatient [id number] Non 02/19 02/19 ARON Donohue /2016 [facility] Procedures Procedure Code Date Perfomer Comments Source Appendectomy [id number] [facility] Bladder [id number] pt reports [facility] operation<sup>1</sup> bladder was blistered Cholecystectomy [id number] [facility] Appendectomy [id number] [facility] Bladder [id number] pt reports [facility] operation<sup>1</sup> bladder was blistered Cholecystectomy [id number] [facility]
--- OUTSIDE RECORDS SUMMARY | 2018-01-30 12:17 | XMS REPORT ---
:1970 Author Organization [facility] Address [address] [place] [address] Dr. Dye [address] [place] [id number] Care Team Providers Name Role Phone CINDY NOÉ Portillo Unavailable Unavailable Problems This patient has no known problems. Allergies, Adverse Reactions, Alerts This patient has no known allergies or adverse reactions. Medications This patient has no known medications. Results Test Description Test Time Test Comments Text Results Atomic Results Result Comments MR, BRAIN, WITHOUT CONTRAST 2017 07:15:00 FINAL REPORT MRI brain without contrast INDICATION: Lightheadedness, weakness of left lower extremity and left upper extremity and numbness and tingling in hands and feet. TECHNIQUE: Multiplanar, multisequence MR imaging of the brain was performed utilizing the following imaging sequences: Axial T2, FLAIR, GRE, and DWI; sagittal and coronal T1 COMPARISON: None available FINDINGS:The exam is motion degraded. Abnormalities may be [...] paranasal sinus mucosal disease. Signed: Yessi Urias MDReport Verified Date/Time: 2017 07:15:04 Reading Location: [facility] C013V Neuro Reading Room ESIUM 2017 06:19:00 Test Item Value Reference Range Comments MAGNESIUM (BEAKER) (test xdbm=151) 2.6 mg/dL 1.6-2.6 BASIC METABOLIC [id number] 06:19:00 Test Item Value Reference Range Comments SODIUM (BEAKER) (test 136 meq/L 136-145 jcec=200) POTASSIUM (BEAKER) (test 4.6 meq/L 3.5-5.1 xolm=274) CHLORIDE (BEAKER) (test 107 meq/L 98-107 oiwq=028) CO2 (BEAKER) (test 23 meq/L 22-29 hopz=131) BLOOD UREA NITROGEN 13 mg/dL 7-21 (BEAKER) (test wefk=600) CREATININE (BEAKER) (test 0.81 mg/dL 0.57-1.25 uuds=626) GLUCOSE RANDOM (BEAKER) 92 mg/dL 70-105 (test kuda=965) CALCIUM (BEAKER) (test 9.3 mg/dL 8.4-10.2 twun=155) EGFR (BEAKER) (test 103 mL/min/1.73 sq m ESTIMATED GFR IS NOT yugp=4111) ACCURATE CREATININE CLEARANCE IN PREDICTING GLOMERULAR FILTRATION RATE. ESTIMATED GFR IS NOT APPLICABLE FOR DIALYSIS PATIENTS. CBC W/PLT COUNT & AUTO [id number] 05:45:00 Test Item Value Reference Range Comments WHITE BLOOD CELL COUNT (BEAKER) (test echo=970) 6.2 K/ L 3.5-10.5 RED BLOOD CELL COUNT (BEAKER) (test hzlw=881) 4.22 M/ L 4.63-6.08 HEMOGLOBIN (BEAKER) (test opgv=581) 13.0 GM/DL 13.7-17.5 HEMATOCRIT (BEAKER) (test trux=298) 40.2 % 40.1-51.0 MEAN CORPUSCULAR VOLUME (BEAKER) (test geqi=962) 95.3 fL 79.0-92.2 MEAN CORPUSCULAR HEMOGLOBIN (BEAKER) (test 30.8 pg 25.7-32.2 ukrx=996) MEAN CORPUSCULAR HEMOGLOBIN CONC (BEAKER) (test 32.3 GM/DL 32.3-36.5 cfqd=110) RED CELL DISTRIBUTION WIDTH (BEAKER) (test 13.2 % 11.6-14.4 geca=444) PLATELET COUNT (BEAKER) (test luos=744) 212 K/CU MM 150-450 MEAN PLATELET VOLUME (BEAKER) (test wnzh=850) 10.4 fL 9.4-12.4 NUCLEATED RED BLOOD CELLS (BEAKER) (test 0 /100 WBC 0-0 snpr=482) NEUTROPHILS RELATIVE PERCENT (BEAKER) (test 53 % gwqz=088) LYMPHOCYTES RELATIVE PERCENT (BEAKER) (test 31 % vjpp=060) MONOCYTES RELATIVE PERCENT (BEAKER) (test 8 % akvv=373) EOSINOPHILS RELATIVE PERCENT (BEAKER) (test 7 % ovbs=371) BASOPHILS RELATIVE PERCENT (BEAKER) (test 1 % ewhq=366) NEUTROPHILS ABSOLUTE COUNT (BEAKER) (test 3.28 K/ L 1.78-5.38 iejl=163) LYMPHOCYTES ABSOLUTE COUNT (BEAKER) (test 1.94 K/ L 1.32-3.57 kfzj=739) MONOCYTES ABSOLUTE COUNT (BEAKER) (test 0.49 K/ L 0.30-0.82 nhpb=388) EOSINOPHILS ABSOLUTE COUNT (BEAKER) (test 0.43 K/ L 0.04-0.54 bhbp=016) BASOPHILS ABSOLUTE COUNT (BEAKER) (test 0.05 K/ L 0.01-0.08 nbxj=834) IMMATURE GRANULOCYTES-RELATIVE PERCENT (BEAKER) 0 % 0-1 (test rbop=3700) TSH/FREE T4 IF [id number] 07:06:00 Test Item Value Reference Range Comments THYROID STIMULATING HORMONE (BEAKER) (test 2.05 uIU/mL 0.35-4.94 ekez=721) [id number] 07:03:00 Test Item Value Reference Range Comments MAGNESIUM (BEAKER) (test gkos=534) 2.8 mg/dL 1.6-2.6 BASIC METABOLIC [id number] 07:03:00 Test Item Value Reference Range Comments SODIUM (BEAKER) (test 137 meq/L 136-145 prtr=866) POTASSIUM (BEAKER) (test 4.1 meq/L 3.5-5.1 zeth=368) CHLORIDE (BEAKER) (test 103 meq/L 98-107 isjs=132) CO2 (BEAKER) (test 28 meq/L 22-29 thoa=206) BLOOD UREA NITROGEN 15 mg/dL 7-21 (BEAKER) (test ldry=046) CREATININE (BEAKER) (test 0.97 mg/dL 0.57-1.25 jseb=638) GLUCOSE RANDOM (BEAKER) 92 mg/dL 70-105 (test kuxa=656) CALCIUM (BEAKER) (test 9.4 mg/dL 8.4-10.2 fyqi=604) EGFR (BEAKER) (test 83 mL/min/1.73 sq m ESTIMATED GFR IS NOT qssg=5375) ACCURATE CREATININE CLEARANCE IN PREDICTING GLOMERULAR FILTRATION RATE. ESTIMATED GFR IS NOT APPLICABLE FOR DIALYSIS PATIENTS. [id number] 07:03:00 Test Item Value Reference Range Comments LIPASE (BEAKER) (test dohm=563) 96 U/L 8-78 LITHIUM [id number] 06:45:00 Test Item Value Reference Range Comments LITHIUM LEVEL (BEAKER) (test ixtj=841) 0.6 mmol/L 0.8-1.2 CBC W/PLT COUNT & AUTO [id number] 06:37:00 Test Item Value Reference Range Comments WHITE BLOOD CELL COUNT (BEAKER) (test efab=844) 4.8 K/ L 3.5-10.5 RED BLOOD CELL COUNT (BEAKER) (test jays=293) 4.37 M/ L 4.63-6.08 HEMOGLOBIN (BEAKER) (test nyiw=592) 13.1 GM/DL 13.7-17.5 HEMATOCRIT (BEAKER) (test kqzu=883) 41.9 % 40.1-51.0 MEAN CORPUSCULAR VOLUME (BEAKER) (test qyhn=035) 95.9 fL 79.0-92.2 MEAN CORPUSCULAR HEMOGLOBIN (BEAKER) (test 30.0 pg 25.7-32.2 sxrb=208) MEAN CORPUSCULAR HEMOGLOBIN CONC (BEAKER) (test 31.3 GM/DL 32.3-36.5 wclj=090) RED CELL DISTRIBUTION WIDTH (BEAKER) (test 13.2 % 11.6-14.4 tbwc=994) PLATELET COUNT (BEAKER) (test brxn=573) 217 K/CU MM 150-450 MEAN PLATELET VOLUME (BEAKER) (test ebjv=103) 9.8 fL 9.4-12.4 NUCLEATED RED BLOOD CELLS (BEAKER) (test 0 /100 WBC 0-0 fzff=263) NEUTROPHILS RELATIVE PERCENT (BEAKER) (test 47 % homu=965) LYMPHOCYTES RELATIVE PERCENT (BEAKER) (test 31 % kfvh=162) MONOCYTES RELATIVE PERCENT (BEAKER) (test 11 % tqsj=077) EOSINOPHILS RELATIVE PERCENT (BEAKER) (test 9 % kvhi=456) BASOPHILS RELATIVE PERCENT (BEAKER) (test 1 % vjpx=964) NEUTROPHILS ABSOLUTE COUNT (BEAKER) (test 2.26 K/ L 1.78-5.38 sfwp=768) LYMPHOCYTES ABSOLUTE COUNT (BEAKER) (test 1.51 K/ L 1.32-3.57 oldt=995) MONOCYTES ABSOLUTE COUNT (BEAKER) (test 0.55 K/ L 0.30-0.82 zdil=108) EOSINOPHILS ABSOLUTE COUNT (BEAKER) (test 0.43 K/ L 0.04-0.54 uojf=131) BASOPHILS ABSOLUTE COUNT (BEAKER) (test 0.05 K/ L 0.01-0.08 uhjr=810) IMMATURE GRANULOCYTES-RELATIVE PERCENT (BEAKER) 0 % 0-1 (test knzb=0229)
--- OUTSIDE RECORDS SUMMARY | 2018-01-30 12:17 | XMS REPORT ---
:1970 [facility] Team Providers Name Role Prachi Elder [...] End Status Dosage Date Date Topiramate MEDISPAN 65425-37 25 MG Orally Apr 19, Active 1 tablet 55-06 twice a day 2013 (bid) Seroquel MEDISPAN 41362-42 50 mg Orally Active 1 tablet 78-10 Once a day at bedtime Lisinopril MEDISPAN 41316-02 20 MG Orally Inactive 1 tablet 68-01 Once a day Clonidine HCl MEDISPAN 37571-22 0.1 MG Orally Apr 19, Active 1 tablet 27-10 twice a day 2013 at bedtime (bid) Tramadol HCl MEDISPAN 05379-34 50 mg Orally May 19, Active 1 or 2 58-01 every 6 hrs for 2013 tablet headache Xanax MEDISPAN 88086-93 2 MG Orally Active 1/2 tablet 94-01 three times a in am and day (tid) noon, 1 tablet at bedtime Singulair MEDISPAN 07611-14 10 MG Orally Active 1 tablet 17-01 Once a day in the evening Protonix MEDISPAN 67900-55 40 mg Orally Active 1 tablet 41-81 once a day Cymbalta MEDISPAN 41685-96 90 Orally Once a Active 1 capsule 40-01 [facility] 19423-36 250 Orally once Active 1 tablet 99-00 [...]
--- OUTSIDE RECORDS SUMMARY | 2018-01-30 12:17 | XMS REPORT | CCD ---
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
--- OUTSIDE RECORDS SUMMARY | 2018-01-30 12:17 | XMS REPORT ---
:1970 [facility] Team Providers Name Role Prachi [...] End Status Dosage Date Date Xanax MEDISPAN 14876-84 2 MG Orally Active 1/2 tablet 94-01 three times a in am and day (tid) noon, 1 tablet at bedtime Lamictal MEDISPAN 21524-87 250 Orally once Active 1 tablet 99-00 every night [facility] 14392-58 0.1 MG Orally Apr 19, Active 1 tablet 27-10 twice a day 2013 at bedtime (bid) Cymbalta MEDISPAN 03639-12 90 Orally Once a Active 1 capsule 40-01 day [place] MEDISPAN 42510-47 10-325 MG Orally May 12, May 27, Active 1 tablet 80-73 every 6 hrs 2013 2013 as needed [facility]ilant [facility] 69603-54 30 MG Orally May 12, Active 1 capsule 66-30 Once a day 2013 Singulair MEDISPAN 66323-60 10 MG Orally Active 1 tablet 17-01 Once a day in the evening Tramadol HCl MEDISPAN 95551-03 50 mg Orally May 19, Active 1 or 2 58-01 every 6 hrs for 2014 tablet headache [facility] 326[facility]28 25 MG Orally Apr 19, Active 1 tablet 55-06 twice a day 2013 (bid) Metronidazole MEDISPAN 54861-77 500 mg Orally May 12May 22, Active 1 tablet 32-04 Three times a 2013 2013 day Protonix MEDISPAN 22810-77 40 mg Orally Inactive 1 tablet 41-81 once a day Seroquel MEDISPAN 76322-43 50 mg Orally Active 1 tablet 78-10 Once a day at bedtime Cipro MEDISPAN 36882-26 500 mg Orally May 12May 22, Active [...]
[2018-01-30] MEDS ORDERED: NA CHLORIDE 0.9% 1,000 ML ONE (13:34)
[2018-01-30] MEDS ORDERED: MORPHINE 4 MG/ML SYR ONE ×3 (14:44→17:55)
[2018-01-30] MEDS ORDERED: ONDANSETRON 4 MG/2 ML VIAL ONE ×2 (14:44→15:42)
[2018-01-30 15:10] LABS: ALT/SGPT 17 U/L (12-78); AST/SGOT 9 U/L (15-37); Albumin 3.8 g/dL (3.4-5.0); Alkaline Phosphatase 52 U/L (45-117); Amylase Level 87 U/L (25-115); BUN Blood Urea Nitrogen 7 mg/dL (7-18); Bicarbonate 31 mmol/L (21-32); Bilirubin Direct < 0.1 mg/dL (0-0.2); Bilirubin Total 0.2 mg/dL (0.2-1.0); Glucose Level 90 mg/dL (74-106); Lipase 369 U/L (73-393); Protein, Total 6.7 g/dL (6.4-8.2); Sodium Level 142 mmol/L (136-145)
[2018-01-30 15:13] LABS: Absolute Lymphocytes (CBC) 1.1 K/uL (0.7-4.9); Absolute Monocytes 0.4 K/uL (0.1-1.3); Basophils % 0.5 % (0-1.3); Eosinophils % 4.9 % (0-4.4); Hematocrit 39.5 % (39.6-49.0); Lymphocytes % 19.2 % (15.3-44.8); MCH 31.1 pg (27.0-35.0); MCV 93.5 fL (80-100); MPV 9.1 fL (7.6-11.3); Monocytes % 6.7 % (3.3-12.3); RBC Red Blood Cell Count 4.23 M/uL (4.33-5.43)
[2018-01-30 16:22] LABS: Urine Blood TRACE (NEG); Urine Glucose NEGATIVE (NEG); Urine Protein NEGATIVE (NEG)
[2018-01-30 16:39] LABS: Urine Bacteria NONE SEEN /HPF (NONE SEEN); Urine Culture Reflex Order REFLEXED; Urine RBC <5 /HPF (NONE SEEN)
--- NOTE | 2018-01-30 17:43 | EDPHYS ---
Physician Documentation [facility] Name: Thong Fuchs Jr Age: 47 yrs Sex: Male : 1970 Arrival Date: 01/30/2018 Time: 12:11 Bed 20 Private MD: Monroe Valdes H ED Physician Thaddeus Lowry HPI: 01/30 14:06 This 47 yrs old Male presents to ER via Ambulatory with complaints of kav Abdominal Pain. 14:06 The patient presents with abdominal pain in the right upper quadrant, in the left upper kav quadrant. Onset: The symptoms/episode began/occurred acutely. The symptoms do not radiate. Associated signs and symptoms: Pertinent positives: nausea and vomiting, Pertinent negatives: diarrhea. The symptoms are described as achy. Modifying factors: The symptoms are alleviated by nothing, the symptoms are aggravated by food. Severity of pain: At its worst the pain was moderate just prior to arrival. The patient has experienced similar episodes in the past, and the symptoms today are exactly the same, Recently discharged from [facility] 7 days ago where he was hospitalized for similar symptoms. Reports that he has PMHX: Calcification of Pancreas. He reports that he is currently under the care of Dr. Meadows.. Historical: - Allergies: 12:13 Compazine; sg 12:13 Reglan; sg 12:13 Sulfa (Sulfonamide Antibiotics); sg - PMHx: 12:13 Anxiety; Depression; guillain barre; Hypertension; PANCREATIC CALCIFICATION; sg Pancreatitis; - PSHx: 12:13 None; sg - Immunization history:: Adult Immunizations not up to date. - Social history:: Smoking status: . - Ebola Screening: : Patient negative for fever greater than or equal to 101.5 degrees Fahrenheit, and additional compatible Ebola Virus Disease symptoms Patient denies exposure to infectious person Patient denies travel to an Ebola-affected area in the 21 days before illness onset No symptoms or risks identified at this time. - Family history:: not pertinent. - Hospitalizations: : Patient was recently seen at [facility]. ROS: 14:06 Constitutional: Negative for fever, chills, and weight loss, Eyes: Negative for injury, kav pain, redness, and discharge, ENT: Negative for injury, pain, and discharge, Neck: Negative for injury, pain, and swelling, Cardiovascular: Negative for chest pain, palpitations, and edema, Respiratory: Negative for shortness of breath, cough, wheezing, and pleuritic chest pain, Back: Negative for injury and pain, : Negative for injury, bleeding, discharge, and swelling, MS/Extremity: Negative for injury and deformity, Skin: Negative for injury, rash, and discoloration, Neuro: Negative for headache, weakness, numbness, tingling, and seizure, Psych: Negative for depression, anxiety, suicide ideation, homicidal ideation, and hallucinations, Allergy/Immunology: Negative for hives, rash, and allergies, Endocrine: Negative for neck swelling, polydipsia, polyuria, polyphagia, and marked weight changes, Hematologic/Lymphatic: Negative for swollen nodes, abnormal bleeding, and unusual bruising. 14:06 Abdomen/GI: Positive for abdominal pain, nausea and vomiting, Negative for diarrhea, abdominal distension. Exam: 14:06 Constitutional: This is a well developed, well nourished patient who is awake, alert, kav and in no acute distress. Head/Face: Normocephalic, atraumatic. Eyes: Pupils equal round and reactive to light, extra-ocular motions intact. Lids and lashes normal. Conjunctiva and sclera are non-icteric and not injected. Cornea within normal limits. Periorbital areas with no swelling, redness, or edema. ENT: Nares patent. No nasal discharge, no septal abnormalities noted. Tympanic membranes are normal and external auditory canals are clear. Oropharynx with no redness, swelling, or masses, exudates, or evidence of obstruction, uvula midline. Mucous membranes moist. Neck: Trachea midline, no thyromegaly or masses palpated, and no cervical lymphadenopathy. Supple, full range of motion without nuchal rigidity, or vertebral point tenderness. No Meningismus. Chest/axilla: Normal chest wall appearance and motion. Nontender with no deformity. No lesions are appreciated. Cardiovascular: Regular rate and rhythm with a normal S1 and S2. No gallops, murmurs, or rubs. Normal PMI, no JVD. No pulse deficits. Respiratory: Lungs have equal breath sounds bilaterally, clear to auscultation and percussion. No rales, rhonchi or wheezes noted. No increased work of breathing, no retractions or nasal flaring. Back: No spinal tenderness. No costovertebral tenderness. Full range of motion. Skin: Warm, dry with normal turgor. Normal color with no rashes, no lesions, and no evidence of cellulitis. MS/ Extremity: Pulses equal, no cyanosis. Neurovascular intact. Full, normal range of motion. Neuro: Awake and alert, GCS 15, oriented to person, place, time, and situation. Cranial nerves II-XII grossly intact. Motor strength 5/5 in all extremities. Sensory grossly intact. Cerebellar exam normal. Normal gait. Psych: Awake, alert, with orientation to person, place and time. Behavior, mood, and affect are within normal limits. 14:06 Abdomen/GI: Inspection: abdomen appears normal, Bowel sounds: normal, Palpation: soft, moderate abdominal tenderness, in the right upper quadrant and left upper quadrant. Vital Signs: 12:51 BP 129 / 87; Pulse 80; Resp 17; Temp 98.0; Pulse Ox 100% on R/A; Pain 10/10; sg 13:50 BP 105 / 65; Pulse 78; Resp 15; Pulse Ox 98% on R/A; em 14:53 BP 116 / 78; Pulse 68; Resp 18; Pulse Ox 98% on R/A; Pain 10/10; em 15:49 BP 111 / 76; Pulse 65; Resp 16; Pulse Ox 99% on R/A; Pain 9/10; em 17:11 BP 128 / 93; Pulse 73; Resp 18; Pulse Ox 97% on R/A; em 18:00 BP 117 / 70; Pulse 59; Resp 16; Pulse Ox 100% on R/A; Pain 8/10; em 19:30 BP 111 / 75; Pulse 60; Resp 18; Temp 97.8; Pulse Ox 98% on R/A; ea MDM: 13:22 Medical screening is not applicable. ka 17:44 Differential diagnosis: cholecystitis, Cholelithiasis, pancreatitis. ka 17:44 Data reviewed: vital signs, nurses notes, lab test result(s), radiologic studies, CT [facility] scan. 17:56 Transition of care: After a detail discussion of the patient's case, care is ka transferred to Aydee Henson [facility]. 01/30 13:23 Order name: Amylase, Serum; Complete Time: 15:35 [facility] 01/30 13:23 Order name: Basic Metabolic Panel; Complete Time: 15:35 kav 01/30 13:23 Order name: CBC with Diff; Complete Time: 15:35 kav 01/30 13:23 Order name: Creatinine for Radiology; Complete Time: 15:35 kav 01/30 13:23 Order name: Hepatic Function; Complete Time: 15:35 kav 01/30 13:23 Order name: Lipase; Complete Time: 15:35 kav 01/30 13:23 Order name: Urine Microscopic Only; Complete Time: 17:34 kav 01/30 15:29 Order name: CT Abd/Pelvis - W/Contrast; Complete Time: 19:32 kav 01/30 16:06 Order name: Urine Dipstick--Ancillary (enter results); Complete Time: 17:34 mb4 01/30 16:41 Order name: Urine Culture EDMS 01/30 13:23 Order name: IV Saline Lock; Complete Time: 14:36 kav 01/30 13:23 Order name: Labs collected and sent; Complete Time: 14:35 kav 01/30 13:23 Order name: Urine Dipstick-Ancillary (obtain specimen); Complete Time: 16:05 kav Administered Medications: 14:35 Drug: NS 0.9% 1000 ml Route: IV; Rate: 1000 ml; Site: left antecubital; em 15:42 Follow up: IV Status: Completed infusion; IV Intake: 1000ml em 14:58 Drug: Zofran 4 mg Route: IVP; Site: left antecubital; iw 15:43 Follow up: Response: No adverse reaction em 14:58 Drug: morphine 4 mg Route: IVP; Site: left antecubital; iw 15:43 Follow up: Response: No adverse reaction; Pain is unchanged, physician notified em 15:44 Drug: morphine 4 mg Route: IVP; Site: left antecubital; em 16:11 Follow up: Response: No adverse reaction; Pain is decreased em 15:44 Drug: Zofran 4 mg Route: IVP; Site: left antecubital; em 16:11 Follow up: Response: No adverse reaction em 17:58 Drug: morphine 4 mg Route: IVP; Site: left antecubital; em 18:42 Follow up: Response: No adverse reaction; Pain is decreased em Disposition: 01/30/18 19:31 Discharged to Home. Impression: Upper abdominal pain, unspecified. - Condition is Stable. - Discharge Instructions: Abdominal Pain, Adult, Chronic Pancreatitis. - Prescriptions for Bentyl 20 mg Oral Tablet - take 1 tablet by ORAL route every 6 hours As needed; 20 tablet. Zofran 4 mg Oral Tablet - take 1 tablet by ORAL route every 12 hours As needed; 6 tablet. - Medication Reconciliation Form, Thank You Letter, Antibiotic Education, Prescription Opioid Use form. - Follow up: KrystaJonyOtf Valdes; When: 1 - 2 days; Reason: Recheck today's complaints, Continuance of care, Re-evaluation by your physician. - Problem is new. - Symptoms have improved. Addendum: 02/01/2018 08:13 Co-signature as Attending Physician, Thaddeus Lowry MD I agree with the assessment and w a plan of care. Signatures: Dispatcher [employer] EDMS Bharat Escalera, RN JESSA sg Aydee Henson, COMPETITIVE INTELLIGENCE MANAGER-C COMPETITIVE INTELLIGENCE MANAGER-Csnw Evie Adiran, COMPETITIVE INTELLIGENCE MANAGER COMPETITIVE INTELLIGENCE MANAGER kav Delgado Perez, COMMUNITY DIETITIAN COMMUNITY DIETITIAN em Lilina Espinoza RN RN iw Antunez, Elena RN JESSA Lowry, MD MD stephania Travis Corrections: (The following items were deleted from the chart) 01/30 17:43 17:43 01/30/2018 17:43 Discharged to Home. Impression: Upper abdominal pain, kav unspecified; Other chronic pancreatitis; Chronic pain syndrome. Condition is Stable. Discharge Instructions: Abdominal Pain, Adult. Forms are Medication Reconciliation Form, Thank You Letter, Antibiotic Education, Prescription Opioid Use. Follow up: KrystaJonyOtf Bui; When: 1 - 2 days; Reason: Recheck today's complaints, Continuance of care, Re-evaluation by your physician. Problem is new. Symptoms have improved. kav 19:53 19:31 01/30/2018 19:31 Discharged to Home. Impression: Upper abdominal pain, ea unspecified. Condition is Stable. Forms are Medication Reconciliation Form, Thank You Letter, Antibiotic Education, Prescription Opioid Use. Follow up: KrystaJonyOtf Valdes; When: 1 - 2 days; Reason: Recheck today's complaints, Continuance of care, Re-evaluation by your physician. Problem is new. Symptoms have improved. snw
--- NOTE | 2018-01-30 17:43 | ER ---
Nurse's Notes [facility] Name: Thong Fuchs Jr Age: 47 yrs Sex: Male : 1970 Arrival Date: 01/30/2018 Time: 12:11 Bed 20 Private MD: Monroe Valdes H Diagnosis: Upper abdominal pain, unspecified Presentation: 01/30 12:50 Presenting complaint: Patient states: Having chronic pancreatitis and having a scope sg done and having hardening of the pancrease and extreme apin. Transition of care: patient was not received from another setting of care. Onset of symptoms was January 30, 2018. Risk Assessment: Do you want to hurt yourself or someone else? Patient reports no desire to harm self or others. Initial Sepsis Screen: Does the patient meet any 2 criteria? No. Patient's initial sepsis screen is negative. Does the patient have a suspected source of infection? No. Patient's initial sepsis screen is negative. Care prior to arrival: None. 12:50 Method Of Arrival: Ambulatory sg 12:50 Acuity: LILO 3 sg Historical: - Allergies: 12:13 Compazine; sg 12:13 Reglan; sg 12:13 Sulfa (Sulfonamide Antibiotics); sg - PMHx: 12:13 Anxiety; Depression; guillain barre; Hypertension; PANCREATIC CALCIFICATION; sg Pancreatitis; - PSHx: 12:13 None; sg - Immunization history:: Adult Immunizations not up to date. - Social history:: Smoking status: . - Ebola Screening: : Patient negative for fever greater than or equal to 101.5 degrees Fahrenheit, and additional compatible Ebola Virus Disease symptoms Patient denies exposure to infectious person Patient denies travel to an Ebola-affected area in the 21 days before illness onset No symptoms or risks identified at this time. - Family history:: not pertinent. - Hospitalizations: : Patient was recently seen at [facility]. Screenin:23 Abuse screen: Denies threats or abuse. Nutritional screening: No deficits noted. em Tuberculosis screening: No symptoms or risk factors identified. Fall Risk None identified. Assessment: 13:15 General: Appears uncomfortable, Behavior is calm, cooperative. Pain: Complains of pain em in right upper quadrant Pain currently is 7 out of 10 on a pain scale. Pain began 1 day ago. Neuro: Level of Consciousness is awake, alert, obeys commands, Oriented to person, place, time, situation. Cardiovascular: Denies chest pain, Capillary refill < 3 seconds Patient's skin is warm and dry. Respiratory: Airway is patent Respiratory effort is even, unlabored, Respiratory pattern is regular, symmetrical. GI: Abdomen is flat, Bowel sounds present X 4 quads. Abd is soft X 4 quads Abdomen is tender to palpation X 4 quads. Reports nausea, vomiting, Patient currently denies diarrhea. : No signs and/or symptoms were reported regarding the genitourinary system. EENT: No signs and/or symptoms were reported regarding the EENT system. Derm: Skin is intact, Skin is pink, warm \T\ dry. Musculoskeletal: Range of motion: intact in all extremities. 13:30 Reassessment: Patient appears in no apparent distress at this time. I agree with above iw assessment by Delgado Perez LVN. 14:15 Reassessment: Patient appears in no apparent distress at this time. Patient and/or em family updated on plan of care and expected duration. Pain level reassessed. Patient is alert, oriented x 3, equal unlabored respirations, skin warm/dry/pink. 14:54 Reassessment: Patient appears in no apparent distress at this time. Patient and/or em family updated on plan of care and expected duration. Pain level reassessed. Patient is alert, oriented x 3, equal unlabored respirations, skin warm/dry/pink. 15:48 Reassessment: Patient appears in no apparent distress at this time. Patient and/or em family updated on plan of care and expected duration. Pain level reassessed. Patient is alert, oriented x 3, equal unlabored respirations, skin warm/dry/pink. pt request more nausea medication and pain medication rates pain 9/10 at this time. 16:00 Reassessment: Patient appears in no apparent distress at this time. Patient and/or em family updated on plan of care and expected duration. Pain level reassessed. Patient is alert, oriented x 3, equal unlabored respirations, skin warm/dry/pink. pt finished PO contrast at this time, CT notified at this time. 17:00 Reassessment: Patient appears in no apparent distress at this time. Patient and/or em family updated on plan of care and expected duration. Pain level reassessed. Patient is alert, oriented x 3, equal unlabored respirations, skin warm/dry/pink. pt request something for pain at this time, TARA Clarke notified. 18:03 Reassessment: Patient appears in no apparent distress at this time. Patient and/or em family updated on plan of care and expected duration. Pain level reassessed. Patient is alert, oriented x 3, equal unlabored respirations, skin warm/dry/pink. 18:46 Reassessment: Patient appears in no apparent distress at this time. Patient and/or em family updated on plan of care and expected duration. Pain level reassessed. reports pain 5/10 currently Patient states feeling better. 19:23 General: Appears in no apparent distress. Behavior is calm, cooperative, appropriate ea for age. Pain: Complains of pain in left upper quadrant and right upper quadrant Pain currently is 7 out of 10 on a pain scale. Pain began 1 day ago. Neuro: Level of Consciousness is awake, alert, obeys commands, Oriented to person, place, time, situation. Cardiovascular: Patient's skin is warm and dry. Respiratory: Airway is patent Respiratory effort is even, unlabored, Respiratory pattern is regular, symmetrical. GI: Abdomen is flat, Bowel sounds present X 4 quads. Abd is soft X 4 quads Abdomen is tender to palpation X 4 quads. : No signs and/or symptoms were reported regarding the genitourinary system. EENT: No signs and/or symptoms were reported regarding the EENT system. Derm: Skin is pink, warm \T\ dry. Musculoskeletal: Range of motion: intact in all extremities. 19:51 Reassessment: Patient and/or family updated on plan of care and expected duration. Pain ea level reassessed. Patient is alert, oriented x 3, equal unlabored respirations, skin warm/dry/pink. Discharge instructions given to patient, verbalized the understanding of isntruction. Vital Signs: 12:51 BP 129 / 87; Pulse 80; Resp 17; Temp 98.0; Pulse Ox 100% on R/A; Pain 10/10; sg 13:50 BP 105 / 65; Pulse 78; Resp 15; Pulse Ox 98% on R/A; em 14:53 BP 116 / 78; Pulse 68; Resp 18; Pulse Ox 98% on R/A; Pain 10/10; em 15:49 BP 111 / 76; Pulse 65; Resp 16; Pulse Ox 99% on R/A; Pain 9/10; em 17:11 BP 128 / 93; Pulse 73; Resp 18; Pulse Ox 97% on R/A; em 18:00 BP 117 / 70; Pulse 59; Resp 16; Pulse Ox 100% on R/A; Pain 8/10; em 19:30 BP 111 / 75; Pulse 60; Resp 18; Temp 97.8; Pulse Ox 98% on R/A; ea ED Course: 12:11 Patient arrived in ED. mr 12:11 Monroe Valdes DO is Private Physician. mr 12:14 Arm band placed on. sg 12:51 Triage completed. sg 12:55 Delgado Perez LVN is Primary Nurse. em 13:22 Evie Adrian FNP is PHCP. kav 13:22 Thaddeus Lowry MD is Attending Physician. kav 14:00 No provider procedures requiring assistance completed. Missed attempt(s): 22 gauge in em left antecubital area. Bleeding controlled, band aid applied, catheter tip intact. 14:23 Patient has correct armband on for positive identification. Placed in gown. Bed in low em position. Call light in reach. Side rails up X2. 16:04 Urine collected: clean catch specimen, clear. 5 16:05 Urine Microscopic Only Sent. mh5 17:[address] via wheelchair. mw3 17:42 Monroe Valdes DO is Referral Physician. kav 17:45 CT Abd/Pelvis - W/Contrast In Process Unspecified. EDMS 19:20 Primary Nurse role handed off by Delgado Perez LVN rg2 19:31 Monroe Valdes DO is Referral Physician. snw 19:48 IV discontinued, intact, bleeding controlled, No redness/swelling at site. Pressure ea dressing applied. Administered Medications: 14:35 Drug: NS 0.9% 1000 ml Route: IV; Rate: 1000 ml; Site: left antecubital; em 15:42 Follow up: IV Status: Completed infusion; IV Intake: 1000ml em 14:58 Drug: Zofran 4 mg Route: IVP; Site: left antecubital; iw 15:43 Follow up: Response: No adverse reaction em 14:58 Drug: morphine 4 mg Route: IVP; Site: left antecubital; iw 15:43 Follow up: Response: No adverse reaction; Pain is unchanged, physician notified em 15:44 Drug: morphine 4 mg Route: IVP; Site: left antecubital; em 16:11 Follow up: Response: No adverse reaction; Pain is decreased em 15:44 Drug: Zofran 4 mg Route: IVP; Site: left antecubital; em 16:11 Follow up: Response: No adverse reaction em 17:58 Drug: morphine 4 mg Route: IVP; Site: left antecubital; em 18:42 Follow up: Response: No adverse reaction; Pain is decreased em Intake: 15:42 IV: 1000ml; Total: 1000ml. em Outcome: 17:43 Discharge ordered by . kav 19:31 Discharge ordered by MD. snw 19:52 Discharged to home ambulatory, with friend. ea 19:52 Condition: improved 19:52 Discharge instructions given to patient, Instructed on discharge instructions, follow up and referral plans. medication usage, Demonstrated understanding of instructions, follow-up care, medications, Prescriptions given X 2. 19:53 Patient left the ED. ea Signatures: Dispatcher [employer] EDMS Doug Steinberg rg2 Bharat Escalera RN Aydee Ludwig, METAL SPRAYER-C METAL SPRAYER-Evie Navarro, METAL SPRAYER METAL SPRAYER Corina Sultana mr Chris, Delgado, IMMIGRATION OFFICER IMMIGRATION OFFICER em Lilian Espinoza RN RN iw Martinez, Maria [facility] Jolene Alcaraz RN RN ea Willis, Michelle mw3 Corrections: (The following items were deleted from the chart) 18:13 18:09 Reassessment: Patient appears in no apparent distress at this time. pt request to em take shower, no male staff available to take pt up to the floor, pt given body wipes, wash cloths, towels, deodorant, toothpaste, toothbrush and new gown em
--- NOTE | 2018-01-30 18:00 | RAD REPORT ---
EXAM DESCRIPTION: CT - Abdomen Pelvis W Contrast - 01/30/2018 5:45 pm CLINICAL HISTORY: Abdominal pain, history of pancreatitis COMPARISON: CT study May 2017 TECHNIQUE: Biphasic, helical CT imaging of the abdomen and pelvis was performed following 100 ml non -ionic IV contrast. Oral contrast was given. Given the pancreatitis history, imaging was obtained at 3 millimeter thickness. Multiplanar reconstruction images generated and reviewed. All CT scans are performed using dose optimization technique as appropriate and may include automated exposure control or mA/KV adjustment according to patient size. FINDINGS: No suspicious findings in the lung bases. The liver, spleen, and pancreas show no suspicious findings. No pseudocyst, calcifications or other f indings of chronic pancreatitis. Cholecystectomy clips are present. No biliary tree dilatation. Symmetric renal function is seen with no hydronephrosis or suspicious renal mass. No pyelonephritis o r acute renal parenchymal process. No adrenal abnormality. No urinary bladder wall thickening or mass . No dilated bowel loops or bowel wall thickening. No acute GI process seen. No free air, free fluid or inflammatory stranding. No hernia, mass or bulky lymphadenopathy. No suspicious bony findings. IMPRESSION: Contrast enhanced CT abdomen and pelvis showing no significant or suspicious finding.
[2018-01-30 20:04] VITALS: BP 111/75; TEMP 97.8; O2SAT 98
== END 2018-01-30 19:53 | disposition home or self-care (01) ==
LOC: ER 12:10
DX: R10.10 Upper abdominal pain, unspecified (principal); I10 Essential (primary) hypertension; Z88.2 Allergy status to sulfonamides; Z88.8 Allergy status to other drugs, medicaments and biological substances
CPT/HCPCS: 36415; 74177; 80048; 80076; 81003; 81015; 82150; 83690; 85025; 87086; 87088; 96361; 96374; 96375; 99284; J2405; J7030; Q9967

== ENCOUNTER 2018-02-03 13:22 | Inpatient (IN) | payer SELFPAY ==
--- OUTSIDE RECORDS SUMMARY | 2018-02-03 13:25 | XMS REPORT | Clinical Summary ---
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 Chronic pancreatitis (HCC) 12/04/2017 Gait abnormality 12/04/2017 Encounters Date Type Specialty Care Team Description 12/04/2017 - Hospital Encounter General Internal KristinaaGriselda Anxiety; Chronic 2017 Medicine MD Lindsey pancreatitis, Madelaine, Gaby unspecified Anjelica Elder, pancreatitis type ([facility]);Dizziness;Gait Zindani, abnormality;History MD Yvette of Guillain-Vernal syndrome;Recurrent major depressive disorder, in remission ([facility]);Unsteady gait;Bipolar depression ([facility]) after 02/02/2017 Family History Medical History Relation Name Comments [...] contrast (2017 5:32 AM) Specimen Performing Laboratory [facility] [employer] [facility] Narrative FINAL REPORT MRI brain without contrast [...] MD Report Verified Date/Time:2017 07:15:04 Reading Location: [address] Neuro Reading Room Procedure Note Interface, [...] Report Verified Date/Time: 2017 07:15:04 Reading Location: [address] Neuro Reading Room with platelet count [...] Performing Laboratory Blood - Arm, Right [facility] [address] [place] [address] CBC with platelet count + automated diff (2017 4:48 AM)Only the most recent of2 resultswithin the time period is included. Specimen Performing Laboratory Blood Narrative The following orders were created for panel order CBC with platelet count + automated diff. Procedure Abnormality Status --------- ------ CBC with platelet count ...[[id number]]AbnormalFinal result Please view results for these tests on the individual orders. Magnesium (2017 4:48 AM)Only the most recent of2 resultswithin the time period is included. Component Value Ref Range Magnesium 2.6 1.6 - 2.6 mg/dL Specimen Performing Laboratory Blood - Arm, [address] [address] Basic metabolic panel (2017 4:48 AM)Only the [...] PATIENTS. Specimen Performing Laboratory Blood - Arm, [address] [address] TSH/Free T4 If Indicated (12/05/2017 5:42 AM) Component Value Ref Range TSH 2.05 0.35 - 4.94 uIU/mL Specimen Performing Laboratory Blood [address] [address] Lipase (12/05/2017 5:42 AM) Component Value Ref Range Lipase 96 (H) 8 - 78 U/L Specimen Performing Laboratory Blood [address] [address] [place] level (12/05/2017 5:42 AM) Component Value Ref Range [place] Level 0.6 (L) 0.8 - 1.2 mmol/L Specimen Performing Laboratory Blood [facility] [address] [address] after 02/02/2017
--- OUTSIDE RECORDS SUMMARY | 2018-02-03 13:28 | XMS REPORT | Continuity of Care Document ---
:1970 Author Organization Interface Problems Problem Status Onset Classification Date Comments Source Date Reported ABDOMINAL PAIN Active 02/19/20 [facility] Dis[facility] 07/10/19 07/13/2016 [facility] Diagnosis: 17 Generalized abdominal pain LOWER ABD PAIN Active 05/13/20 [facility] 14 ABD PAIN, Active 05/13/20 [facility] POSSIBLE ACUTE 14 DIVERTICULITIS Discharge 01/05/20 01/07/2014 [facility] Diagnosis: 14 Abdominal pain NAUSEA OR Active 01/24/20 [facility] VOMITING/ABD PAIN 12 Abdominal pain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 02/21/2017 [facility] Anxiety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 02/21/2017 [facility] Anxiety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 02/21/2017 depression [facility] Depression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 02/21/2017 [facility] 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 [facility] Guillain[place]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 02/21/2017 [facility] Nausea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 02/21/2017 [facility] Pancreatitis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 02/21/2017 [facility] Pancreatitis,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 02/21/2017 acute [facility] Abdominal pain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 01/26/2012 [facility] Anxiety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 01/26/2012 [facility] Depression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 01/26/2012 [facility] 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 Nausea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 01/26/2012 [facility] Pancreatitis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 01/26/2012 [facility] Bipolar disorder,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 06/03/2014 [facility] unspecified Tension headache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 06/03/2014 [facility] GERD -Esophageal Active Diagnosis 06/03/2014 Kais[facility] Fang reflux Chronic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 06/03/2014 K[facility] Fang pancreatitis Allergic rhinitis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 06/03/2014 [facility] Fang Hypertension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 06/03/2014 Kais[facility] Fang Diverticulitis of Active Diagnosis 06/03/2014 Kaisen Fang colon ABDMNAL PAIN Active [facility] Medications Medication Details Route Status Patient Ordering Order Source Instructions Provider Date Morphine 2 mg, Route: Inactive IVP, ONCE, 2016 [facility] Dosing Weight 90.909, kg, Priority: STAT, Start date: 07/10/16 0:15:00 [employer], Stop date: 07/10/16 0:15:00 [employer] Phenergan 12.5 mg, Inactive Route: IM, 2016 [facility] ONCE, Dosing Weight 90.909, kg, Priority: STAT, Start date: 07/10/16 0:14:00 [employer] INSTRU[employer], Stop date: 07/10/16 0:14:00 [employer] INSTRUCTOR Zofran 4 mg, Route: Inactive IVP, Drug 2016 [facility] form: INJ, ONCE, Dosing Weight 90.909, kg, Priority: STAT, Start date: 07/09/16 23:36:00 [employer] INSTRUCTOR, Stop date: 07/09/16 23:36:00 [employer]NA[employer]ACH OR INSTRUCTOR Bentyl 20 mg, Route: Inactive IM, ONCE, 2016 [facility] Dosing Weight 90.909, kg, Start date: 07/09/16 22:50:00 [employer] INSTRUCTOR, Stop date: 07/09/16 22:50:00 [employer] INSTRUCTOR Morphine 4 mg, 1 mL, Inactive Route: IVP, 2016 [facility] Drug form: SOLN, ONCE, Dosing Weight 90.909, kg, Priority: STAT, Start date: 07/09/16 22:05:00 [employer]ACH OR INSTRUCTOR, Stop date: 07/09/16 22:05:00 CSTNotes: (Same as:MORPhine Sulfate) Sodium Chloride 1,000 mL, Inactive 0.154 MEQ/ML 1,000 ml/hr, 2016 [facility] Injectable Infuse Over: 1 Solution hr, Route: IV, ONCE, Priority: STAT, Dosing Weight 90.909 kg, Start date: 07/09/16 22:04:00 [employer] INSTRUCTOR, Duration: 1 doses or times, Stop date: 07/09/16 22:04:00 [employer]NA[employer]ACH OR INSTRUCTOR Sodium Chloride 1,000 mL, Inactive 0.154 MEQ/ML 1,000 ml/hr, 2016 [facility] Injectable Infuse Over: 1 Solution hr, Route: IV, 1,000, Drug form: INJ, ONCE, Priority: STAT, Dosing Weight 90.909 kg, Start date: 07/09/16 21:47:00 G[employer]NA[employer]ACH OR INSTRUCTOR, Duration: 1 doses or times, Stop date: 07/09/16 21:47:00 [employer]NAST[employer]ACH OR INSTRUCTOR Zofran 4 mg, 2 mL, Inactive Route: IVP, 2016 [facility] Drug form: INJ, ONCE, Dosing Weight 90.909, kg, Priority: STAT, Start date: 07/09/16 21:47:00 G[employer]ACH [employer] INSTRUCTOR, Stop date: 07/09/16 21:47:00 CSTNotes: (Same as: Zofran) MEDICATION WASTE Product Size: 4 mg Product Wasted: ___ mg Ativan 1 mg, 0.5 mL, Inactive Route: IVP, 2016 [facility] Drug form: INJ, ONCE, Dosing Weight 90.909, kg, Priority: STAT, Start date: 07/07/16 20:25:00 G[employer] OR INSTRUCTOR, Stop date: 07/07/16 20:25:00 CSTNotes: (Same as: Ativan) Morphine 4 mg, 1 mL, Inactive Route: IVP2016 [facility] Drug form: SOLN, ONCE, Dosing Weight 90.909, kg, Priority: STAT, Start date: 07/07/16 20:22:00 GYMNAST[employer] COACH OR INSTRUCTOR, Stop date: 07/07/16 20:22:00 CSTNotes: (Same as:MORPhine Sulfate) Ativan 1 mg, Route: Inactive IVP, Drug 2016 [facility] form: INJ, ONCE, Dosing Weight 90.909, kg, Priority: STAT, Start date: 07/07/16 18:46:00 GYMNAST[employer] COACH OR INSTRUCTOR, Stop date: 07/07/16 18:46:00 GYMNAST[employer] COACH OR INSTRUCTOR Morphine 4 mg, Route: Inactive IVP, ONCE, 2016 [facility] Dosing Weight 90.909, kg, Priority: STAT, Start date: 07/07/16 18:46:00 GYMNAST[employer] COACH OR INSTRUCTOR, Stop date: 07/07/16 18:46:00 GYMNAST[employer] COACH OR INSTRUCTOR Zofran 4 mg, 2 mL, Inactive Route: IVP, 2016 [facility] Drug form: INJ, ONCE, Dosing Weight 90.909, kg, Priority: STAT, Start date: 07/07/16 18:12:00 GYMNAST[employer] COACH OR INSTRUCTOR, Stop date: 07/07/16 18:12:00 CSTNotes: (Same as: Zofran) MEDICATION WASTE Product Size: 4 mg Product Wasted: ___ mg Lactated Ringers 1,000 mL, Inactive 1,000 mL Rate: 1,000 2016 [facility] ml/hr, Infuse over: 1 hr, Route: IV, Dosing Weight 90.909 kg, Total Volume: 1,000, Start date: 07/07/16 18:11:00 GYMNAST[employer] COACH OR INSTRUCTOR, Duration: 1 doses or times, Stop date: 07/07/16 19:10:00 GYMNAST[employer] COACH OR INSTRUCTOR Saline Flush 10 mL, Route: Inactive 0.9% IVP, Drug 2016 [facility] Form: INJ, Dosing Weight 100, kg, PRN, PRN Line Flush, Start date: 07/07/16 17:10:00 GYMNAST[employer] COACH OR INSTRUCTOR, Duration: 30 day, Stop date: 08/06/16 17:09:00 CSTNotes: (Same as: BD Posiflush) Tramadol HCl 1 or 2 tablet Orally Active 50 mg Orally Fang 05/19/ Prachi every 6 hrs 2013 Fang for headache topiramate 25 mg, 1 tab, Inactive Route: PO, 2013 [facility] Drug form: TAB, Bedtime, Dosing Weight 100, kg, Start date: 05/14/14 21:00:00, Duration: 30 day, Stop date: 06/12/14 21:00:00Notes: (Same As: Topamax) "Do Not Crush" Lactulose 667 20 gm=30 ml, Active MG/ML Oral PO, TID, 2013 [facility] Solution constipation, # 1,000 mL, 0 Refill(s) pantoprazole 40 mg, 1 tab, Inactive Route: PO, 2013 [facility] Drug form: ECTAB, Before Dinner, Dosing Weight 100, kg, Start date: 05/14/14 16:30:00, Duration: 30 day, Stop date: 06/12/14 16:30:00Notes: Tablet should not be chewed or crushed. (Same as: Protonix) Lactulose 667 30 gm, 45 mL, Inactive MG/ML Oral Route: PO, 2013 [facility] Solution Drug Form: SYRP, Dosing Weight 100, kg, Daily, NOW, Start date: 05/14/14 12:30:00, Duration: 30 day, Stop date: 06/13/14 9:00:00Notes: (Same as:Chronulac) Clonidine 0.1 mg, 1 tab, Inactive Hydrochloride Route: PO, 2013 [facility] 0.1 MG Oral Drug form: Tablet TAB, [...] mg, 3 cap, Inactive Route: PO, 2013 [facility] Drug form: DRC, Daily, Dosing Weight 100, kg, Start date: 05/14/14 9:00:00, Duration: 30 day, Stop date: 06/12/14 9:00:00Notes: (Same as: Cymbalta) (Do Not Crush) Flagyl 500 mg, 100 No Longer mL, Route: Active 2013 [facility] IVPB, Drug form: INJ, [id number], Start date: 05/13/14 22:00:00, Duration: 30 day, Stop date: 06/12/14 14:00:00Notes: (Same as: Flagyl) Avoid alcohol. Alprazolam 2 MG 2 mg, 2 tab, No Longer Oral Tablet Route: PO, Active 2013 [facility] [Xanax] Drug form: TAB, BID, Dosing Weight 100, kg, Start date: 05/13/14 21:30:00, Duration: 30 day, Stop date: 06/12/14 21:00:00Notes: With food or milk (Same as: Xanax) Zofran 4 mg, 2 mL, No Longer Route: IVP, Active 2013 [facility] Drug form: INJ, Q6H, PRN Nausea, Start date: 05/13/14 21:01:00, Duration: 30 day, Stop date: 06/12/14 21:00:00Notes: (Same as: Zofran) Cipro 400 mg, 200 No Longer mL, Route: [facility] 2013 [facility] IVPB, Drug form: INJ, [id number], Start date: 05/13/14 21:00:00, Duration: 30 day, Stop date: 06/12/14 9:00:00Notes: Do not refrigerate Seroquel 50 mg, 2 tab, No Longer Route: PO, 2013 [facility] Drug form: TAB, Bedtime, Dosing Weight 100, kg, Start date: 05/13/14 21:00:00, Duration: 30 day, Stop date: 06/11/14 21:00:00Notes: (Same as: SEROquel) morphine Sulfate 4 mg, 2 mL, No Longer Route: IV, [facility] 2013 [facility] Drug form: INJ, Q4H, PRN Pain Score 6-10, Start date: 05/13/14 21:00:00, Duration: 30 day, Stop date: 06/12/14 20:59:00Notes: (Same as:MORPhine Sulfate) Sodium Chloride 1,000 mL, No Longer 0.45% IV 1,000 Rate: 125 2013 [facility] mL ml/hr, Infuse over: 8 hr, Route: IV, Dosing Weight 100 kg, Total Volume: 1,000, Start date: 05/13/14 21:00:00, Duration: 30 day, Stop date: 06/12/14 20:59:00 Singulair 10 mg, 1 tab, No Longer Route: PO, 2013 [facility] Drug form: TAB, Bedtime, Dosing Weight 100, kg, Start date: 05/13/14 21:00:00, Duration: 30 day, Stop date: 06/11/14 21:00:00Notes: (Same as:Singulair) Lamictal 250 mg, 2.5 No Longer tab, Route: 2013 [facility] PO, Drug form: TAB, Daily, Dosing Weight [...] tab, No Longer Route: PO, Active 2013 [facility] Drug form: TABDIS, Q8H, Dosing Weight 100, kg, PRN as needed for nausea/vomitin g, Start date: 05/13/14 18:51:00, Stop date: 06/12/14 18:50:00Notes: (Same as: Zofran ODT) Bentyl 20 mg, 1 tab, No Longer Route: PO, Active 2013 [facility] Drug form: TAB, QID, Dosing Weight 100, [...] Active Enteric Coated Daily, # 30 2013 [facility] Capsule cap, 0 [Cymbalta] Refill(s) Alprazolam 2 MG 2 mg, PO, BID, Active Oral Tablet 0 Refill(s) 2013 [facility] [Xanax] pantoprazole 40 =1 Pack, PO, Active MG Granules Daily, # 30 2013 [facility] [Protonix] ea, 0 Refill(s) [place] 1 tablet as Orally Active 10-325 MG [facility] needed Orally every 2013 Fang 6 hrs Dexilant 1 capsule Orally Active 30 MG Orally [facility] Ka Once a day 2013 Metronidazole 1 tablet Orally Active 500 mg Orally [facility] Ka Three times a 2013 day Cipro 1 tablet Orally Active 500 mg Orally [facility] Ka every 12 hrs 2013 Topiramate 1 tablet Orally Active 25 MG Orally [facility] Ka twice a day 2013 Fang (bid) Clonidine HCl 1 tablet at Orally Active 0.1 MG Orally [facility] bedtime twice a day 2013 Fang (bid) Dicyclomine 20 mg=1 tab, Active Hydrochloride 20 PO, QID, 2013 [facility] Oral Tablet abdominal [Bentyl] pain, # 30 tab, 0 Refill(s) Dicyclomine 20 mg=1 tab, Active Hydrochloride 20 PO, QID, 2013 [facility] Oral Tablet abdominal [Bentyl] pain, # 30 tab, 0 Refill(s) Ondansetron 4 MG 4 mg=1 tab, Active Disintegrating PO, Q8H, 2013 [facility] Tablet [Zofran] Nausea and Vomiting, Dissolve tab [...] 0.5 mg, 0.5 Inactive mL, Route: 2013 [facility] IVP, Drug form: INJ, ONCE, Dosing Weight 100, kg, Priority: STAT, Start date: 01/04/14 14:00:00, Stop date: 01/04/14 14:00:00 Sodium Chloride 1,000 mL, Inactive 0.154 MEQ/ML 1,000 ml/hr, 2013 [facility] Injectable Infuse Over: 1 Solution hr, Route: IV, 1,000, Drug form: INJ, ONCE, Priority: STAT, Dosing Weight 100 kg, Start date: 01/04/14 11:44:00, Duration: 1 doses or times, Stop date: 01/04/14 11:44:00 Ondansetron 4 mg, 2 mL, Inactive Route: IVP, 2013 [facility] Drug form: INJ, ONCE, Dosing Weight 100, kg, Priority: STAT, Start date: 01/04/14 11:44:00, Stop date: 01/04/14 11:44:00Notes: (Same as: Zofran) Lorazepam 1 mg, 0.5 mL, Inactive Route: IVP, 2013 [facility] Drug form: INJ, ONCE, Dosing Weight 100, kg, Priority: STAT, Start date: 01/04/14 11:44:00, Stop date: 01/04/14 11:44:00Notes: (Same as: Ativan) Hydromorphone 0.5 mg, 0.5 Inactive mL, Route: 2013 [facility] IVP, Drug form: INJ, ONCE, Dosing Weight 100, kg, Priority: STAT, Start date: 01/04/14 11:44:00, Stop date: 01/04/14 11:44:00 Zofran 4 mg, Route: Inactive IVP, Drug 2013 [facility] form: INJ, ONCE, Dosing Weight 100, kg, Priority: STAT, Start date: 01/04/14 9:52:00, Stop date: 01/04/14 9:52:00 Phenergan 25 mg 25 mg, 1 tab, PO Active Black oral tablet PO, Q4H, PRN, 2011 [facility] 15 tab, Nausea, Substitution Allowed Zofran 4 mg, 2 mL, IVP No Longer Banda Route: IVP, Active 2011 [facility] Drug form: INJ, ONCE, kg, Start date: 01/24/12 10:21:00, Stop date: 01/24/12 10:21:00 ketorolac 30 mg, 1 mL, IV No Longer Banda Route: IV, Active 2011 [facility] Drug form: INJ, ONCE, kg, Priority: STAT, Start date: 01/24/12 8:29:00, Stop date: 01/24/12 8:29:00 Phenergan + 12.5 mg, 0.5 IVP No Longer Banda Sodium Chloride mL, Route: IVP [place] Active 2011 [facility] 0.9% IV 20 mL [place], Drug form: INJ, ONCE, kg, PRN Nausea & Vomiting, Start date: 01/24/12 8:27:00 Sodium Chloride 1,000 mL, IV No Longer Banda 0.9% (Bolus) IV Rate: 1,000 Active 2011 [facility] 1,000 mL ml/hr, Infuse over: 1 hr, Route: IV, Dosing Weight 100 kg, Total Volume: 1,000, Priority: STAT, Start date: 01/24/12 8:27:00, Duration: 1 doses or times, Stop date: 01/24/12 9:26:00, Bolus DoseBolus Dose Saline Flush 5 ml, Route: IVP No Longer Banda 0.9% IVP, Drug Active 2011 [facility] Form: INJ, kg, PRN, PRN Line Flush, [...] Fang Bactrim Assertion Drug Active MH allergy [facility] Compazine Assertion shakey Propensity Active MH to adverse [facility] reactions to drug Reglan Assertion shakey Propensity Active MH to adverse [facility] reactions to drug sulfa drugs Assertion Drug Active MH allergy [facility] Tape Assertion Drug Active allergy [facility] Immunizations Immunization Date Given Site Status Last Updated Comments Source Results Order Name Results Value Reference Date Interpretation Comments Source Range CHEM PANEL Lipase Lvl 243 unit/L 73 - 393 02/19 [facility] CARDIAC Troponin-I null 0.00 - 07/10 [facility] 0.40 [facility] CARDIAC CK MB null 0.5 - 3.6 07/10 ENZYMES /2016 [facility] CHEM PANEL B/C Ratio 8 6 - 25 07/10 [facility] CHEM PANEL A/G Ratio 1.2 0.7 - 1.6 07/10 [facility] CHEM PANEL Globulin 3.2 g/dL 2.7 - 4.2 07/10 [facility] CHEM PANEL AGAP 11.1 meq/L 10.0 - 07/10 20.0 [facility] CHEM PANEL eGFR 77 07/10 [...] is not recommended in the following populations: [place] [id number] Individuals with unstable creatinine concentrations, including patients [...] Phos 53 unit/L 39 - 136 07/10 [facility] CHEM PANEL Bili Total 0.3 [...] Lvl 336 unit/L 73 - 393 07/10 [facility] HEMATOLOGY Lymphocytes 1.6 K/CMM 1.0 - 5.5 07/10 [facility] HEMATOLOGY Eosinophils 0.2 K/CMM 0.0 - 0.5 07/10 [facility] HEMATOLOGY Monocytes # 0.5 K/CMM 0.0 - 0.8 07/10 [facility] HEMATOLOGY Segs-Bands # 6.4 K/CMM 1.5 - 8.1 07/10 [facility] HEMATOLOGY Basophils # 0.0 K/CMM 0.0 - 0.2 07/10 [facility] HEMATOLOGY Basophils 0.5 % 0.0 - 1.0 07/10 [facility] HEMATOLOGY Monocytes 6.0 % 2.0 - 12.0 07/10 [facility] HEMATOLOGY Eosinophils 1.8 % 0.0 - 4.0 07/10 [facility] HEMATOLOGY Segs 72.9 % 45.0 - 07/10 MH 75.0 /2016 [facility] HEMATOLOGY Lymphocytes 18.8 % 20.0 - 07/10 MH 40.0 /2016 [facility] HEMATOLOGY Platelet 235 K/CMM 133 - 450 07/10 [facility] HEMATOLOGY MPV 8.1 fL 7.4 - 10.4 07/10 [facility] HEMATOLOGY MCHC 33.4 g/dL 32.0 - 07/10 MH 36.0 /2016 [facility] HEMATOLOGY RDW 13.2 % 11.5 - 07/10 MH 14.5 /2016 [facility] HEMATOLOGY Hct 41.7 % 42.0 - 07/10 MH 54.0 /2016 [facility] HEMATOLOGY MCH 30.4 pg 27.0 - 07/10 MH 31.0 [facility] HEMATOLOGY MCV 91.2 fL 80.0 - 07/10 94.0 [facility] HEMATOLOGY WBC 8.7 K/CMM 3.7 - 10.4 07/10 [facility] HEMATOLOGY Hgb 13.9 g/dL 14.0 - 07/10 18.0 [facility] HEMATOLOGY RBC 4.57 M/CMM 4.70 - 07/10 MH 6.10 /2016 [facility] URINE AND UA pH 7.0 5.0 - 8.0 07/10 STOOL [facility] URINE AND UA Glucose Negative Negative 07/10 [facility] mg/dL mg/dL /2016 [facility] URINE AND UA Protein Negative Negative 07/10 [facility] mg/dL mg/dL /2016 [facility] URINE AND UA <=1.0 0.1 - 1.0 07/10 [facility] Urobilinogen mg/dL /2016 [facility] URINE AND UA Turbidity Clear Clear 07/10 STOOL [facility] (07/09/16 8:42 PM) URINE AND UA Spec Grav 1.003 <=1.030 07/10 STOOL [facility] URINE AND UA Color Light Yellow Yellow 07/10 STOOL [facility] *NA* (07/09/16 8:42 PM) URINE AND UA Blood Small Negative 07/10 [facility] *ABN* (07/09/16 8:42 PM) URINE AND UA Bili Negative Negative 07/10 [facility] *NA* (07/09/16 8:42 PM) URINE AND UA Ketones Negative Negative 07/10 [facility] mg/dL mg/dL /2016 [facility] URINE AND UA RBC null 0 - 2 07/10 STOOL [facility] URINE AND UA WBC null 0 - 5 07/10 [facility] URINE AND UA Sq Epi Few /LPF Few /LPF 07/10 [facility] URINE AND UA Leuk Est Negative Negative 07/10 STOOL [facility] (07/09/16 8:42 PM) URINE AND UA Nitrite Negative Negative 07/10 STOOL [facility] (07/09/16 8:42 PM) Abdomen 2 Abdomen 2 Study: 2 views of abdomen 07/09 - views DX views DX - [facility] History: Abdominal pain Read by: [...] 2.6 mg/dL 1.8 - 2.4 07/08 Lvl [facility] CHEM PANEL Lipase Lvl 248 unit/L 73 - 393 07/08 [facility] CHEM PANEL Amylase Lvl 79 unit/L 25 - 115 07/08 [facility] CHEM PANEL A/G Ratio 1.2 0.7 - 1.6 07/08 [facility] CHEM PANEL Globulin 3.5 g/dL 2.7 - 4.2 07/08 [facility] CHEM PANEL Bili Total 0.4 mg/dL 0.2 - 1.3 07/08 [facility] CHEM PANEL B/C Ratio 9 6 - 25 07/08 [facility] CHEM PANEL AGAP 8.9 meq/L 10.0 - 07/08 20.0 [facility] CHEM PANEL eGFR 95 07/08 [...] Lvl 78 mg/dL 70 - 99 07/08 [facility] CHEM PANEL BUN 9 mg/dL 7 - 22 07/08 [facility] CHEM PANEL CO2 30 meq/L 24 - 32 07/08 [facility] CHEM PANEL Alk Phos 54 unit/L 39 - 136 07/08 [facility] CHEM PANEL Calcium Lvl 8.9 mg/dL 8.5 - 10.5 07/08 [facility] CHEM PANEL Sodium Lvl 139 meq/L 135 - 145 07/08 [facility] CHEM PANEL Creatinine 0.96 mg/dL 0.50 - 07/08 Lvl 1.40 [facility] CHEM PANEL Albumin Lvl 4.1 g/dL 3.5 - 5.0 07/08 [facility] CHEM PANEL Total 7.6 g/dL 6.4 - 8.4 07/08 [facility] CHEM PANEL Potassium 3.9 meq/L 3.5 - 5.1 07/08 Lvl [facility] CHEM PANEL Chloride Lvl 104 meq/L 95 - 109 07/08 [facility] CHEM PANEL AST 9 unit/L 0 - 37 07/08 [facility] CHEM PANEL ALT 25 unit/L 0 - 65 07/08 [facility] HEMATOLOGY Eosinophils 0.1 K/CMM 0.0 - 0.5 07/08 [facility] HEMATOLOGY Basophils # 0.0 K/CMM 0.0 - 0.2 07/08 [facility] HEMATOLOGY Lymphocytes 1.8 K/CMM 1.0 - 5.5 07/08 [facility] HEMATOLOGY Monocytes # 0.4 K/CMM 0.0 - 0.8 07/08 [facility] HEMATOLOGY Eosinophils 1.5 % 0.0 - 4.0 07/08 [facility] HEMATOLOGY Basophils 0.4 % 0.0 - 1.0 07/08 [facility] HEMATOLOGY Segs-Bands # 4.6 K/CMM 1.5 - 8.1 07/08 [facility] HEMATOLOGY Monocytes 5.5 % 2.0 - 12.0 07/08 [facility] HEMATOLOGY Segs 66.8 % 45.0 - 07/08 MH 75.0 /2016 [facility] HEMATOLOGY Lymphocytes 25.8 % 20.0 - 07/08 MH 40.0 /2016 [facility] HEMATOLOGY MPV 8.4 fL 7.4 - 10.4 07/08 [facility] HEMATOLOGY MCH 30.0 pg 27.0 - 07/08 MH 31.0 [facility] HEMATOLOGY MCHC 32.7 g/dL 32.0 - 07/08 MH 36.0 /2016 [facility] HEMATOLOGY RDW 13.7 % 11.5 - 07/08 MH 14.5 /2016 [facility] HEMATOLOGY Platelet 277 K/CMM 133 - 450 07/08 [facility] HEMATOLOGY MCV 91.8 fL 80.0 - 07/08 94.0 [facility] HEMATOLOGY RBC 4.94 M/CMM 4.70 - 07/08 6.10 [facility] HEMATOLOGY WBC 6.9 K/CMM 3.7 - 10.4 07/08 [facility] HEMATOLOGY Hct 45.4 % 42.0 - 07/08 54.0 [facility] HEMATOLOGY Hgb 14.8 g/dL 14.0 - 07/08 18.0 [facility] URINE AND UA <=1.0 0.1 - 1.0 07/08 STOOL Urobilinogen mg/dL /2016 [facility] URINE AND UA Sq Epi None Seen 07/08 STOOL [facility] URINE AND UA Bacteria Occasional None Seen 07/08 STOOL /HPF /HPF /2016 [facility] URINE AND UA Nitrite Negative Negative 07/08 STOOL [facility] (07/07/16 6:15 PM) URINE AND UA Leuk Est Negative Negative 07/08 STOOL [facility] (07/07/16 6:15 PM) URINE AND UA Bili Negative Negative 07/08 STOOL [facility] *NA* (07/07/16 6:15 PM) URINE AND UA Blood Small Negative 07/08 STOOL [facility] *ABN* (07/07/16 6:15 PM) URINE AND UA Ketones Negative Negative 07/08 STOOL mg/dL mg/dL /2016 [facility] URINE AND UA Glucose Negative Negative 07/08 [facility] mg/dL mg/dL /2016 [facility] URINE AND UA Protein Negative Negative 07/08 STOOL mg/dL mg/dL [facility] URINE AND UA Color Colorless Yellow 07/08 [facility] *NA* (07/07/16 6:15 PM) URINE AND UA WBC null 0 - 5 07/08 [facility] URINE AND UA Turbidity Clear Clear 07/08 [facility] (07/07/16 6:15 PM) URINE AND UA pH 7.0 5.0 - 8.0 07/08 [facility] URINE AND UA Spec Grav 1.002 <=1.030 07/08 [facility] URINE AND UA <=1.0 0.1 - 1.0 05/14 STOOL Urobilinogen mg/dL [facility] URINE AND UA Color Ltyellow 05/14 [facility] URINE AND UA Spec Grav 1.006 <=1.030 05/14 [facility] URINE AND UA Glucose Negative Negative 05/14 [facility] mg/dL mg/dL [facility] URINE AND UA pH 7.0 5.0 - 8.0 05/14 [facility] URINE AND UA Turbidity Clear Clear 05/14 [facility] (05/14/14 8:48 AM) URINE AND UA Sq Epi None Seen 05/14 [facility] URINE AND UA Protein Negative Negative 05/14 [facility] mg/dL mg/dL [facility] URINE AND UA Leuk Est Negative Negative 05/14 [facility] (05/14/14 8:48 AM) URINE AND UA WBC null 0 - 5 05/14 [facility] URINE AND UA Nitrite Negative Negative 05/14 [facility] (05/14/14 8:48 AM) URINE AND UA Blood Negative Negative 05/14 [facility] (05/14/14 8:48 AM) URINE AND UA Bili Negative Negative 05/14 [facility] *NA* (05/14/14 8:48 AM) URINE AND UA Ketones Negative Negative 05/14 [facility] mg/dL mg/dL [facility] Abdomen/Pe Abdomen/Pelv I. CT SCAN of the ABDOMEN with CONTRAST 05/14 - lvis w IV is w IV /2013 - [facility] contrast contrast CT II. CT SCAN of [...] UIBC 282 ug/dl 110 - 370 05/14 [facility] ANEMIA % [place] Fe 21 % 12 - 57 05/14 [facility] ANEMIA Iron 76 ug/dl 45 - 160 05/14 [facility] ANEMIA TIBC 358 ug/dl 228 - 428 05/14 [facility] ANEMIA Vitamin B12 510 pg/mL 254 - 1320 05/14 [facility] CHEM PANEL Lipase Lvl 170 unit/L 73 - 393 05/14 [facility] ELECTROLYT Chloride Lvl 105 meq/L 95 - 109 05/14 [facility] ELECTROLYT Sodium Lvl 141 meq/L 135 - 145 05/14 [facility] ELECTROLYT Potassium 3.7 meq/L 3.5 - 5.1 05/14 [facility] ELECTROLYT eGFR 82 05/14 1Result Comment: The [...] is not recommended in the following populations: [facility] 3m2 Individuals with unstable creatinine concentrations, including [...] AST 17 unit/L 0 - 37 05/14 [facility] ELECTROLYT ALT 25 unit/L 0 - 65 05/14 [facility] ELECTROLYT Creatinine 1.1 mg/dL 0.5 - 1.4 05/14 [facility] ELECTROLYT Glucose Lvl 85 mg/dL 70 - 99 05/14 2Interpretive Data: Adult reference range values reflect the clinical guidelines of the [place] [employer]. [facility] ELECTROLYT BUN 6 mg/dL 7 - 22 05/14 [facility] ELECTROLYT Albumin Lvl 3.6 g/dL 3.5 - [...] 8.7 meq/L 10.0 - 05/14 ES 20.0 [facility] HEMATOLOGY Segs-Bands # 2.1 K/CMM 1.5 - 8.1 05/14 [facility] HEMATOLOGY Eosinophils 8.1 % 0.0 - 4.0 05/14 [facility] HEMATOLOGY Monocytes 9.1 % 2.0 - 12.0 05/14 [facility] HEMATOLOGY Lymphocytes 38.2 % 20.0 - 05/14 40.0 [facility] HEMATOLOGY Monocytes # 0.4 K/CMM 0.0 - 0.8 05/14 [facility] HEMATOLOGY Eosinophils 0.4 K/CMM 0.0 - 0.5 05/14 # /2013 [facility] HEMATOLOGY Basophils 0.5 % 0.0 - 1.0 05/14 [facility] HEMATOLOGY Lymphocytes 1.8 K/CMM 1.0 - 5.5 05/14 # /2013 [facility] HEMATOLOGY Segs 44.1 % 45.0 - 05/14 75.0 [facility] HEMATOLOGY Sed Rate 8 mm/h 0 - 15 05/14 [facility] HEMATOLOGY Hgb 12.8 g/dL 14.0 - 05/14 18.0 [facility] HEMATOLOGY MCH 30.1 pg 27.0 - 05/14 31.0 /2013 [facility] HEMATOLOGY RBC 4.26 M/CMM 4.70 - 05/14 6.10 [facility] HEMATOLOGY Hct 38.5 % 42.0 - 05/14 MH 54.0 [facility] HEMATOLOGY RDW 13.1 % 11.5 - 05/14 MH 14.5 [facility] HEMATOLOGY Platelet 204 K/CMM 133 - 450 05/14 [facility] HEMATOLOGY MCV 90.4 fL 80.0 - 05/14 94.0 [facility] HEMATOLOGY MCHC 33.3 g/dL 32.0 - 05/14 MH 36.0 [facility] HEMATOLOGY MPV 9.1 fL 7.4 - 10.4 05/14 [facility] HEMATOLOGY WBC 4.8 K/CMM 3.7 - 10.4 05/14 [facility] IMMUNOLOGY C-REACTIVE 9.1 mg/L <=2.9 mg/L 05/14 PROTEIN [facility] URINE AND Occult Bld Negative Negative 01/04 STOOL Stl [facility] (01/04/14 11:41 AM) CHEM PANEL Lipase Lvl 193 unit/L 73 - 393 01/04 [facility] CHEM PANEL Amylase Lvl 57 unit/L 25 - 115 01/04 [facility] CHEM PANEL eGFR 74 01/04 1Result Comment: [...] is not recommended in the following populations: [facility] 3m2 Individuals with unstable creatinine concentrations, including [...] Lvl 9.5 mg/dL 8.5 - 10.5 01/04 [facility] CHEM PANEL CO2 28 meq/L 24 - 32 01/04 [facility] CHEM PANEL Albumin Lvl 4.1 g/dL 3.5 - 5.0 01/04 [facility] CHEM PANEL Total 7.6 g/dL 6.4 - [...] values reflect the clinical guidelines of the [place] [employer]. [facility] CHEM PANEL BUN 6 mg/dL 7 - 22 01/04 [facility] CHEM PANEL Creatinine 1.2 mg/dL 0.5 - 1.4 01/04 [facility] CHEM PANEL A/G Ratio 1.2 0.7 - 1.6 01/04 [facility] CHEM PANEL Globulin 3.5 g/dL 2.0 - 4.0 01/04 [facility] CHEM PANEL B/C Ratio 5 6 - 25 01/04 [facility] CHEM PANEL AGAP 11.4 meq/L 10.0 - 01/04 20.0 [facility] HEMATOLOGY MCH 29.5 pg 27.0 - 01/04 31.0 [facility] HEMATOLOGY Hgb 14.4 g/dL 14.0 - 01/04 18.0 [facility] HEMATOLOGY Hct 43.3 % 42.0 - 01/04 54.0 /2013 [facility] HEMATOLOGY MCV 88.6 fL 80.0 - 01/04 94.0 [facility] HEMATOLOGY Platelet 231 K/CMM 133 - 450 01/04 [facility] HEMATOLOGY WBC 10.0 K/CMM 3.7 - 10.4 01/04 [facility] HEMATOLOGY RBC 4.89 M/CMM 4.70 - 01/04 MH 6.10 [facility] HEMATOLOGY MPV 8.9 fL 7.4 - 10.4 01/04 [facility] HEMATOLOGY MCHC 33.3 g/dL 32.0 - 01/04 MH 36.0 /2013 [facility] HEMATOLOGY RDW 13.5 % 11.5 - 01/04 MH 14.5 /2013 [facility] HEMATOLOGY Basophils # 0.1 K/CMM 0.0 - 0.2 01/04 /2013 [facility] HEMATOLOGY Segs 77.0 % 45.0 - 01/04 MH 75.0 /2013 [facility] HEMATOLOGY Lymphocytes 13.4 % 20.0 - 01/04 MH 40.0 /2013 [facility] HEMATOLOGY Eosinophils 1.6 % 0.0 - 4.0 01/04 /2013 [facility] HEMATOLOGY Monocytes 7.3 % 2.0 - 12.0 01/04 [facility] HEMATOLOGY Segs-Bands # 7.7 K/CMM 1.5 - 8.1 01/04 [facility] HEMATOLOGY Basophils 0.7 % 0.0 - 1.0 01/04 [facility] HEMATOLOGY Lymphocytes 1.3 K/CMM 1.0 - 5.5 01/04 MH # /2013 [facility] HEMATOLOGY Monocytes # 0.7 K/CMM 0.0 - 0.8 01/04 [facility] HEMATOLOGY Eosinophils 0.2 K/CMM 0.0 - 0.5 01/04 MH # /2013 [facility] URINE AND UA Bacteria Occasional None Seen 01/04 STOOL /HPF /HPF /2013 [facility] URINE AND UA Sq Epi Occasional Few /LPF 01/04 STOOL /LPF /2013 [facility] URINE AND UA Nitrite Negative Negative 01/04 [facility] (01/04/14 9:00 AM) URINE AND UA Bili Negative Negative 01/04 STOOL [facility] *NA* (01/04/14 9:00 AM) URINE AND UA Blood Negative Negative 01/04 [facility] (01/04/14 9:00 AM) URINE AND UA Protein Negative Negative 01/04 STOOL [facility] (01/04/14 9:00 AM) URINE AND UA Glucose Negative Negative 01/04 [facility] (01/04/14 9:00 AM) URINE AND UA 0.2 EU/dL 0.1 - 1.0 01/04 STOOL Urobilinogen [facility] URINE AND UA Ketones Negative Negative 01/04 STOOL [facility] *NA* (01/04/14 9:00 AM) URINE AND UA Color Yellow Yellow 01/04 STOOL [facility] *NA* (01/04/14 9:00 AM) URINE AND UA Turbidity Clear Clear 01/04 STOOL [facility] (01/04/14 9:00 AM) URINE AND UA Spec Grav <=1.005 <=1.030 01/04 STOOL
*NA*< [facility] br/>( 9:00 AM) URINE AND UA pH 7.5 5.0 - 8.0 01/04 STOOL [facility] URINE AND UA Leuk Est Negative Negative 01/04 STOOL [facility] (01/04/14 9:00 AM) Abdomen/Pe Abdomen/Pelv CT Abdomen [...] 218 unit/L 73 - 393 01/23 Normal [facility] CHEMISTRY AST 10 unit/L 0 - 37 01/23 Normal [facility] CHEMISTRY Calcium Lvl 8.4 mg/dL 8.5 - 10.5 01/23 LOW [facility] CHEMISTRY CO2 25 meq/L 24 - 32 01/23 Normal [facility] CHEMISTRY Total 6.8 g/dL 6.4 - 8.4 08/16 Normal MH [facility] CHEMISTRY Bili Total 0.2 mg/dL 0.2 - 1.3 01/23 Normal [facility] CHEMISTRY Albumin Lvl 3.6 g/dL 3.5 - 5.0 01/23 Normal [facility] CHEMISTRY Alk Phos 53 unit/L 39 - 136 01/23 Normal [facility] CHEMISTRY ALT 29 unit/L 0 - 65 01/23 Normal [facility] CHEMISTRY Glucose Lvl 86 mg/dL 70 - 99 01/23 Normal 1Interpretive Data: Adult reference range values reflect the clinical guidelines of the [place] [employer]. [facility] CHEMISTRY BUN 10 mg/dL 7 - 22 01/23 Normal [facility] CHEMISTRY Creatinine 1.0 mg/dL 0.5 - 1.4 01/23 Normal [facility] CHEMISTRY Potassium 3.6 meq/L 3.5 - 5.1 01/23 Normal [facility] CHEMISTRY Sodium Lvl 141 meq/L 135 - 145 01/23 Normal [facility] CHEMISTRY Chloride Lvl 108 meq/L 95 - 109 01/23 Normal [facility] CHEMISTRY AGAP 11.6 meq/L 10.0 - 01/23 Normal MH 20.0 [facility] CHEMISTRY B/C Ratio 10 6 - 25 01/23 Normal [facility] CHEMISTRY Globulin 3.2 g/dL 2.0 - 4.0 01/23 Normal [facility] CHEMISTRY A/G Ratio 1.1 0.7 - 1.6 01/23 Normal [facility] HEMATOLOGY Platelet 247 K/CMM 133 - 450 01/23 Normal [facility] HEMATOLOGY MPV 8.6 fL 7.4 - 10.4 01/23 Normal [facility] HEMATOLOGY RDW 14.9 % 11.5 - 01/23 HI MH 14.5 /2011 [facility] HEMATOLOGY MCHC 33.5 g/dL 32.0 - 01/23 Normal MH 36.0 [facility] HEMATOLOGY Hct 35.2 % 42.0 - 01/23 LOW MH 54.0 [facility] HEMATOLOGY MCV 85.8 fL 80.0 - 01/23 Normal MH 94.0 [facility] HEMATOLOGY MCH 28.7 pg 27.0 - 01/23 Normal MH 31.0 [facility] HEMATOLOGY RBC 4.10 M/CMM 4.70 - 01/23 LOW MH 6.10 [facility] HEMATOLOGY Hgb 11.8 g/dL 14.0 - 08 LOW 18.0 /2012 [facility] HEMATOLOGY WBC 4.1 K/CMM 3.7 - 10.4 / Normal /2011 [facility] HEMATOLOGY Basophils # 0.0 K/CMM 0.0 - 0.2 / Normal /2011 [facility] HEMATOLOGY Segs-Bands # 2.4 K/CMM 1.5 - 8.1 01/23 Normal /2011 [facility] HEMATOLOGY Lymphocytes 1.0 K/CMM 1.0 - 5.5 08/ Normal /2011 [facility] HEMATOLOGY Eosinophils 0.2 K/CMM 0.0 - 0.5 08/ Normal # /2011 [facility] HEMATOLOGY Monocytes # 0.4 K/CMM 0.0 - 0.8 01/23 Normal /2011 [facility] HEMATOLOGY Basophils 0.2 % 0.0 - 1.0 01/23 Normal /2011 [facility] HEMATOLOGY Segs 58.4 % 45.0 - 08 Normal 75.0 /2011 [facility] HEMATOLOGY Lymphocytes 25.2 % 20.0 - 08 Normal 40.0 [facility] HEMATOLOGY Monocytes 10.4 % 2.0 - 12.0 01/23 Normal [facility] HEMATOLOGY Eosinophils 5.8 % 0.0 - 4.0 08/ HI /2011 [facility] Vital Signs Vital Sign Value Date Comments Source Temperature Oral (F) 98.7 F 07/10/2016 [facility] Heart Rate 86 07/10/2016 [facility] Respitory Rate 15 07/10/2016 [facility] Systolic (mm Hg) 122 07/10/2016 [facility] Diastolic (mm Hg) 82 07/10/2016 [facility] Respitory Rate 18 07/10/2016 [facility] Heart Rate 87 07/10/2016 [facility] Systolic (mm Hg) 114 07/10/2016 [facility] Diastolic (mm Hg) 87 07/10/2016 [facility] Systolic (mm Hg) 134 07/10/2016 [facility] Diastolic (mm Hg) 95 07/10/2016 [facility] Heart Rate 98 07/10/2016 [facility] Respitory Rate 18 07/10/2016 [facility] Weight 90.909 07/10/2016 [facility] Temperature Oral (F) 99.0 F 07/10/2016 [facility] Respitory Rate 18 07/08/2016 [facility] Temperature Oral (F) 98.5 F 07/08/2016 [facility] Systolic (mm Hg) 134 07/08/2016 [facility] Diastolic (mm Hg) 94 07/08/2016 [facility] Heart Rate 79 07/08/2016 [facility] Systolic (mm Hg) 148 07/08/2016 [facility] Diastolic (mm Hg) 83 07/08/2016 [facility] Respitory Rate 20 07/08/2016 [facility] Heart Rate 81 07/08/2016 [facility] BMI Calculated 29.6 07/07/2016 [facility] Weight 90.909 07/07/2016 [facility] Temperature Oral (F) 98.1 F 07/07/2016 [facility] Height 175.26 cm 07/07/2016 [facility] Heart Rate 90 07/07/2016 [facility] Systolic (mm Hg) 139 07/07/2016 [facility] Diastolic (mm Hg) 90 07/07/2016 [facility] Respitory Rate 20 07/07/2016 [facility] Diastolic (mm Hg) 72 05/14/2014 [facility] Systolic (mm Hg) 105 05/14/2014 [facility] Respitory Rate 18 05/14/2014 [facility] Temperature Oral (F) 98.4 F 05/14/2014 [facility] Heart Rate 84 05/14/2014 [facility] Systolic (mm Hg) 100 05/14/2014 [facility] Diastolic (mm Hg) 63 05/14/2014 [facility] Heart Rate 75 05/14/2014 [facility] Temperature Oral (F) 97.8 F 05/14/2014 [facility] Respitory Rate 18 05/14/2014 [facility] Temperature Oral (F) 97.9 F 05/14/2014 [facility] Heart Rate 66 05/14/2014 [facility] Respitory Rate 17 05/14/2014 [facility] Systolic (mm Hg) 100 05/14/2014 [facility] Diastolic (mm Hg) 67 05/14/2014 [facility] Weight 100 05/13/2014 [facility] Height 175.26 cm 05/13/2014 [facility] BMI Calculated 32.56 05/13/2014 [facility] BMI Calculated 32.56 05/13/2014 [facility] Height 175.26 cm 05/13/2014 [facility] Weight 100 [...] [facility] Temperature Oral (F) 98.6 F 04/19/2014 bDisen Dwayneg Heart Rate 95 04/19/2014 Dbisen Fang Diastolic (mm Hg) 95 04/19/2014 Prachi Fang Systolic (mm Hg) 136 04/19/2014 Db[facility]itory [facility] 18 04/19[facility] 114 01/04/2014 [facility] Respitory Rate 18 01/04/2014 [facility] Diastolic (mm Hg) 69 01/04/2014 [facility] Diastolic (mm Hg) 68 01/04/2014 [facility] Heart Rate 83 01/04/2014 [facility] Respitory Rate 18 01/04/2014 [facility] Systolic (mm Hg) 115 01/04/2014 [facility] Heart Rate 91 01/04/2014 [facility] Respitory Rate 18 01/04/2014 [facility] BMI Calculated 32.56 01/04/2014 [facility] Height 175.26 cm 01/04/2014 [facility] Weight 100 01/04/2014 [facility] Temperature Oral (F) 98.4 F 01/04/2014 [facility] Diastolic (mm Hg) 81 01/04/2014 [facility] Systolic (mm Hg) 136 01/04/2014 [facility] Heart Rate 144 01/04/2014 [facility] Weight 100.000 01/24/2012 [facility] Height 175.26 cm 01/24/2012 [facility] Encounters Location Location Encounter Encounter Reason Attending ADM DC Status Source Details Type Number For Provider Date Date Visit Emergency [id number] SAMIR 01/23 01/23 Active [place] /2011 [facility] EC [id number] Samir Johnsone 01/04 01/04 [place] [facility] /2013 [facility] Prachi Initial [id number] 04/19 04/19 Prachi Guzmán MD visit [id number] /2013 [facility] [id number] Prachi Initial [id number] 04/19 04/19 Prachi Guzmán MD visit [id number] /2013 [facility] [id number] Prachi Sick Visit [id number] 05/12 05/12 Prachi Guzmán MD - Follow up [id number] /2013 [facility] for [id number] multiple problems [place] [facility] [id number] Prachi 05/13 05/14 ARON Guzmán /2013 [facility] Emergency [id number] Coy 07/07 07/08 ARON Burt /2016 [facility] Emergency [id number] Coy 07/10 07/10 ARON Burt /2016 [facility] Outpatient [id number] Non 02/19 02/19 ARON Donohue /2016 [facility] Procedures Procedure Code Date Perfomer Comments Source Appendectomy [id number] [facility] Bladder [id number] pt reports [facility] operation<sup>1</sup> bladder was blistered Cholecystectomy [id number] [facility] Appendectomy [id number] [facility] Bladder [id number] pt reports [facility] operation<sup>1</sup> bladder was blistered Cholecystectomy [id number] [facility]
--- OUTSIDE RECORDS SUMMARY | 2018-02-03 13:29 | XMS REPORT | CCD ---
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
--- OUTSIDE RECORDS SUMMARY | 2018-02-03 13:30 | XMS REPORT ---
:1970 Author Organization [facility] Address [address] [place] [address] Dr. Dye [address] [place] [id number] Care Team Providers Name Role Phone CINDY [...] MDReport Verified Date/Time: 2017 07:15:04 Reading Location: [facility] C013V Neuro Reading Room ESIUM 2017 06:19:00 Test Item Value Reference Range Comments MAGNESIUM (BEAKER) (test axtg=024) 2.6 mg/dL 1.6-2.6 BASIC METABOLIC [id number] 06:19:00 Test Item Value Reference Range Comments SODIUM (BEAKER) (test 136 meq/L 136-145 jhuz=009) POTASSIUM (BEAKER) (test 4.6 meq/L 3.5-5.1 wnyk=378) CHLORIDE (BEAKER) (test 107 meq/L 98-107 aqbw=145) CO2 (BEAKER) (test 23 meq/L 22-29 ucfj=940) BLOOD UREA NITROGEN 13 mg/dL 7-21 (BEAKER) (test ppei=406) CREATININE (BEAKER) (test 0.81 mg/dL 0.57-1.25 agbl=593) GLUCOSE RANDOM (BEAKER) 92 mg/dL 70-105 (test eswi=960) CALCIUM (BEAKER) (test 9.3 mg/dL 8.4-10.2 iiqk=417) EGFR (BEAKER) (test 103 mL/min/1.73 sq m ESTIMATED GFR IS NOT aauw=4507) ACCURATE CREATININE CLEARANCE IN PREDICTING GLOMERULAR FILTRATION RATE. ESTIMATED GFR IS NOT APPLICABLE FOR DIALYSIS PATIENTS. CBC W/PLT COUNT & AUTO [id number] 05:45:00 Test Item Value Reference Range Comments WHITE BLOOD CELL COUNT (BEAKER) (test aysu=363) 6.2 K/ L 3.5-10.5 RED BLOOD CELL COUNT (BEAKER) (test fhvb=033) 4.22 M/ L 4.63-6.08 HEMOGLOBIN (BEAKER) (test rgmt=835) 13.0 GM/DL 13.7-17.5 HEMATOCRIT (BEAKER) (test bqah=706) 40.2 % 40.1-51.0 MEAN CORPUSCULAR VOLUME (BEAKER) (test jbhq=485) 95.3 fL 79.0-92.2 MEAN CORPUSCULAR HEMOGLOBIN (BEAKER) (test 30.8 pg 25.7-32.2 bzpc=315) MEAN CORPUSCULAR HEMOGLOBIN CONC (BEAKER) (test 32.3 GM/DL 32.3-36.5 wynk=878) RED CELL DISTRIBUTION WIDTH (BEAKER) (test 13.2 % 11.6-14.4 tgik=588) PLATELET COUNT (BEAKER) (test bbhc=158) 212 K/CU MM 150-450 MEAN PLATELET VOLUME (BEAKER) (test pwdt=882) 10.4 fL 9.4-12.4 NUCLEATED RED BLOOD CELLS (BEAKER) (test 0 /100 WBC 0-0 ecxh=228) NEUTROPHILS RELATIVE PERCENT (BEAKER) (test 53 % cctd=640) LYMPHOCYTES RELATIVE PERCENT (BEAKER) (test 31 % iykx=990) MONOCYTES RELATIVE PERCENT (BEAKER) (test 8 % qucb=644) EOSINOPHILS RELATIVE PERCENT (BEAKER) (test 7 % kjuh=526) BASOPHILS RELATIVE PERCENT (BEAKER) (test 1 % olgd=851) NEUTROPHILS ABSOLUTE COUNT (BEAKER) (test 3.28 K/ L 1.78-5.38 uspk=090) LYMPHOCYTES ABSOLUTE COUNT (BEAKER) (test 1.94 K/ L 1.32-3.57 uuzk=790) MONOCYTES ABSOLUTE COUNT (BEAKER) (test 0.49 K/ L 0.30-0.82 mvec=365) EOSINOPHILS ABSOLUTE COUNT (BEAKER) (test 0.43 K/ L 0.04-0.54 xuag=561) BASOPHILS ABSOLUTE COUNT (BEAKER) (test 0.05 K/ L 0.01-0.08 alcf=321) IMMATURE GRANULOCYTES-RELATIVE PERCENT (BEAKER) 0 % 0-1 (test jioo=3319) TSH/FREE T4 IF [id number] 07:06:00 Test Item Value Reference Range Comments THYROID STIMULATING HORMONE (BEAKER) (test 2.05 uIU/mL 0.35-4.94 bidm=693) [id number] 07:03:00 Test Item Value Reference Range Comments MAGNESIUM (BEAKER) (test exbv=440) 2.8 mg/dL 1.6-2.6 BASIC METABOLIC [id number] 07:03:00 Test Item Value Reference Range Comments SODIUM (BEAKER) (test 137 meq/L 136-145 kboa=890) POTASSIUM (BEAKER) (test 4.1 meq/L 3.5-5.1 tiuu=039) CHLORIDE (BEAKER) (test 103 meq/L 98-107 wdhb=097) CO2 (BEAKER) (test 28 meq/L 22-29 ykbz=116) BLOOD UREA NITROGEN 15 mg/dL 7-21 (BEAKER) (test ypxr=404) CREATININE (BEAKER) (test 0.97 mg/dL 0.57-1.25 zoux=419) GLUCOSE RANDOM (BEAKER) 92 mg/dL 70-105 (test kppw=137) CALCIUM (BEAKER) (test 9.4 mg/dL 8.4-10.2 qwfs=048) EGFR (BEAKER) (test 83 mL/min/1.73 sq m ESTIMATED GFR IS NOT jtnf=3116) ACCURATE CREATININE CLEARANCE IN PREDICTING GLOMERULAR FILTRATION RATE. ESTIMATED GFR IS NOT APPLICABLE FOR DIALYSIS PATIENTS. [id number] 07:03:00 Test Item Value Reference Range Comments LIPASE (BEAKER) (test kjkp=880) 96 U/L 8-78 LITHIUM [id number] 06:45:00 Test Item Value Reference Range Comments LITHIUM LEVEL (BEAKER) (test gztd=858) 0.6 mmol/L 0.8-1.2 CBC W/PLT COUNT & AUTO [id number] 06:37:00 Test Item Value Reference Range Comments WHITE BLOOD CELL COUNT (BEAKER) (test axvl=223) 4.8 K/ L 3.5-10.5 RED BLOOD CELL COUNT (BEAKER) (test srnt=576) 4.37 M/ L 4.63-6.08 HEMOGLOBIN (BEAKER) (test uwfo=339) 13.1 GM/DL 13.7-17.5 HEMATOCRIT (BEAKER) (test rmdm=545) 41.9 % 40.1-51.0 MEAN CORPUSCULAR VOLUME (BEAKER) (test enmg=958) 95.9 fL 79.0-92.2 MEAN CORPUSCULAR HEMOGLOBIN (BEAKER) (test 30.0 pg 25.7-32.2 idmx=813) MEAN CORPUSCULAR HEMOGLOBIN CONC (BEAKER) (test 31.3 GM/DL 32.3-36.5 lxey=902) RED CELL DISTRIBUTION WIDTH (BEAKER) (test 13.2 % 11.6-14.4 zdkt=685) PLATELET COUNT (BEAKER) (test qnat=932) 217 K/CU MM 150-450 MEAN PLATELET VOLUME (BEAKER) (test kwpk=037) 9.8 fL 9.4-12.4 NUCLEATED RED BLOOD CELLS (BEAKER) (test 0 /100 WBC 0-0 rfum=500) NEUTROPHILS RELATIVE PERCENT (BEAKER) (test 47 % dzjl=178) LYMPHOCYTES RELATIVE PERCENT (BEAKER) (test 31 % dwbf=729) MONOCYTES RELATIVE PERCENT (BEAKER) (test 11 % mifz=113) EOSINOPHILS RELATIVE PERCENT (BEAKER) (test 9 % pfpl=172) BASOPHILS RELATIVE PERCENT (BEAKER) (test 1 % qydf=119) NEUTROPHILS ABSOLUTE COUNT (BEAKER) (test 2.26 K/ L 1.78-5.38 bent=447) LYMPHOCYTES ABSOLUTE COUNT (BEAKER) (test 1.51 K/ L 1.32-3.57 fegq=950) MONOCYTES ABSOLUTE COUNT (BEAKER) (test 0.55 K/ L 0.30-0.82 cbga=366) EOSINOPHILS ABSOLUTE COUNT (BEAKER) (test 0.43 K/ L 0.04-0.54 jbql=709) BASOPHILS ABSOLUTE COUNT (BEAKER) (test 0.05 K/ L 0.01-0.08 hcyi=329) IMMATURE GRANULOCYTES-RELATIVE PERCENT (BEAKER) 0 % 0-1 (test wypn=2575)
--- OUTSIDE RECORDS SUMMARY | 2018-02-03 13:30 | XMS REPORT ---
:1970 [facility] Providers Name Role Prachi [...] End Status Dosage Date Date Xanax MEDISPAN 93388-92 2 MG Orally Active 1/2 tablet 94-01 three times a in am and day (tid) noon, 1 tablet at bedtime Lamictal MEDISPAN 03382-85 250 Orally once Active 1 tablet 99-00 every night Clonidine [facility] 16672-58 0.1 MG Orally Apr 19, Active 1 tablet 27-10 twice a day 2013 at bedtime (bid) Cymbalta MEDISPAN 68183-42 90 Orally Once a Active 1 capsule 40-01 day [place] MEDISPAN 92597-28 10-325 MG Orally May 12, May 27, Active 1 tablet 80-73 every 6 hrs 2013 2013 as needed Dexilant [facility] 55713-50 30 MG Orally May 12, Active 1 capsule 66-30 Once a day 2013 Singulair MEDISPAN 66532-76 10 MG Orally Active 1 tablet 17-01 Once a day in the evening Tramadol HCl MEDISPAN 61086-26 50 mg Orally May 19, Active 1 or 2 58-01 every 6 hrs for 2014 tablet headache Topiramate [facility] 69283-12 25 MG Orally Apr 19, Active 1 tablet 55-06 twice a day 2013 (bid) Metronidazole MEDISPAN 84412-29 500 mg Orally May 12May 22, Active 1 tablet 32-04 Three times a 2013 2013 day Protonix MEDISPAN 17355-08 40 mg Orally Inactive 1 tablet 41-81 once a day Seroquel MEDISPAN 54681-33 50 mg Orally Active 1 tablet 78-10 Once a day at bedtime Cipro MEDISPAN 16598-77 500 mg Orally May 12May 22, Active [...]
--- OUTSIDE RECORDS SUMMARY | 2018-02-03 13:30 | XMS REPORT ---
:1970 [address] [facility] Providers Name [...] End Status Dosage Date Date Topiramate MEDISPAN 60536-27 25 MG Orally Apr 19, Active 1 tablet 55-06 twice a day 2013 (bid) Seroquel MEDISPAN 36662-47 50 mg Orally Active 1 tablet 78-10 Once a day at bedtime Lisinopril MEDISPAN 52658-73 20 MG Orally Inactive 1 tablet 68-01 Once a day Clonidine HCl MEDISPAN 41998-82 0.1 MG Orally Apr 19, Active 1 tablet 27-10 twice a day 2013 at bedtime (bid) Tramadol HCl MEDISPAN 35722-30 50 mg Orally May 19, Active 1 or 2 58-01 every 6 hrs for 2013 tablet headache Xanax MEDISPAN 05839-14 2 MG Orally Active 1/2 tablet 94-01 three times a in am and day (tid) noon, 1 tablet at bedtime Singulair MEDISPAN 28319-93 10 MG Orally Active 1 tablet 17-01 Once a day in the evening Protonix MEDISPAN 27958-15 40 mg Orally Active 1 tablet 41-81 once a day Cymbalta MEDISPAN 12086-43 90 Orally Once a Active 1 capsule 40-01 day [facility] 94318-52 250 Orally once Active 1 tablet 99-00 [...]
[2018-02-03 14:41] LABS: Urine Blood TRACE (NEG); Urine Glucose NEGATIVE (NEG); Urine Protein NEGATIVE (NEG)
[2018-02-03] MEDS ORDERED: ONDANSETRON 4 MG/2 ML VIAL ONE ×2 (14:54→16:46)
[2018-02-03] MEDS ORDERED: NA CHLORIDE 0.9% 1,000 ML ONE (14:54)
[2018-02-03] MEDS ORDERED: NA CHLORIDE 0.9% 100 ML IV ONE (15:13)
[2018-02-03] MEDS ORDERED: MORPHINE 4 MG/ML SYR ONE ×2 (15:13→16:46)
[2018-02-03 15:15] LABS: Absolute Lymphocytes (CBC) 1.5 K/uL (0.7-4.9); Absolute Monocytes 0.4 K/uL (0.1-1.3); Absolute Neutrophil 4.3 K/uL (1.8-8.0); Basophils % 0.4 % (0-1.3); Eosinophils % 3.4 % (0-4.4); Hematocrit 40.3 % (39.6-49.0); Lymphocytes % 23.4 % (15.3-44.8); MCH 30.7 pg (27.0-35.0); MCV 92.5 fL (80-100); MPV 9.6 fL (7.6-11.3); Monocytes % 6.7 % (3.3-12.3); RBC Red Blood Cell Count 4.36 M/uL (4.33-5.43)
[2018-02-03 15:31] LABS: ALT/SGPT 19 U/L (12-78); AST/SGOT 12 U/L (15-37); Albumin 4.2 g/dL (3.4-5.0); Alkaline Phosphatase 52 U/L (45-117); BUN Blood Urea Nitrogen 10 mg/dL (7-18); Bicarbonate 29 mmol/L (21-32); Bilirubin Direct < 0.1 mg/dL (0-0.2); Bilirubin Total 0.2 mg/dL (0.2-1.0); Glucose Level 89 mg/dL (74-106); Lipase 1471 U/L (73-393); Potassium 3.9 mmol/L (3.5-5.1); Protein, Total 7.4 g/dL (6.4-8.2); Sodium Level 140 mmol/L (136-145)
[2018-02-03 15:32] LABS: Urine White Blood Cell Casts OK
[2018-02-03 15:33] LABS: Blood Morphology Comment NOT SEEN (NOT SEEN); Platelet Estimate ADEQ
[2018-02-03 16:33] LABS: Urine RBC <5 /HPF (NONE SEEN)
[2018-02-03 16:34] LABS: Urine Bacteria <20 /HPF (NONE SEEN); Urine Culture Reflex Order NOT NEEDED
--- NOTE | 2018-02-03 16:39 | ER ---
Nurse's Notes [facility] Name: Thong Fuchs Jr Age: 47 yrs Sex: Male : 1970 Arrival Date: 02/03/2018 Time: 13:25 Bed 23 Private MD: Monroe Valdes H Diagnosis: Acute pancreatitis Presentation: 02/03 13:38 Presenting complaint: Patient states: "I have calcification pancreatitis and I started aa5 hurting yesterday". pt c/o left abd pain radiating around to back. Pt reports N/V/diarrhea. Transition of care: patient was not received from another setting of care. Onset of symptoms was January 2018. Risk Assessment: Do you want to hurt yourself or someone else? Patient reports no desire to harm self or others. Initial Sepsis Screen: Does the patient meet any 2 criteria? No. Patient's initial sepsis screen is negative. Does the patient have a suspected source of infection? No. Patient's initial sepsis screen is negative. Care prior to arrival: None. 13:38 Method Of Arrival: Ambulatory aa5 13:38 Acuity: LILO 3 aa5 Historical: - Allergies: 13:40 Compazine; aa5 13:40 Reglan; aa5 13:40 Sulfa (Sulfonamide Antibiotics); aa5 - Home Meds: 17:55 azithromycin 250 mg Oral tab 1 tab once daily [Active]; clonazepam 2 mg Oral tab 1 tab mg2 2 times per day [Active]; hydrocodone-acetaminophen 10-325 mg Oral tab 1 tab every 6 hours [Active]; lamotrigine 200 mg Oral tab 2 tabs once daily [Active]; lithium carbonate 600 mg Oral cap 1 cap at bedtime [Active]; meclizine 25 mg Oral TbEC 1 tab 2 times per day [Active]; omeprazole 40 mg Oral cpDR 2 times per day [Active]; quetiapine 200 mg Oral tab once daily [Active]; terbinafine HCl 250 mg Oral tab 1 tab once daily [Active]; venlafaxine 150 mg Oral cp24 once daily [Active]; - PMHx: 13:40 Anxiety; Depression; guillain barre; Hypertension; PANCREATIC CALCIFICATION; aa5 Pancreatitis; - PSHx: 13:40 None; aa5 - Immunization history:: Adult Immunizations up to date. - Social history:: Smoking status: Patient uses tobacco products, 3 cigarettes a day . - Ebola Screening: : No symptoms or risks identified at this time. Screenin:17 Abuse screen: Denies threats or abuse. Denies injuries from another. Nutritional ss screening: No deficits noted. Tuberculosis screening: Never had TB. Fall Risk None identified. Assessment: 14:17 General: Appears in no apparent distress. uncomfortable, Behavior is calm, cooperative, ss Reports feeling ill for 12-24 hours, Denies fever. Pain: Complains of pain in left upper quadrant Pain radiates to left mid back Pain currently is 8 out of 10 on a pain scale. Quality of pain is described as aching, tender, Pain began yesterday. Patient reports he has "calcified pancreatitis" and states that he gets an endoscopy every three weeks for the same thing. Patient was seen here 3 days ago for the same symptoms, but reports he has been unable to get in with the doctor to follow up and his pain has not improved Is continuous, Aggravated by increased activity. Neuro: Level of Consciousness is awake, alert, obeys commands, Oriented to person, place, time, situation, Customer Service Specialist are equal bilaterally Moves all extremities. Full function Speech is normal, Facial symmetry appears normal, Patient has essential tremors that are baseline for him. Cardiovascular: Capillary refill < 3 seconds is brisk in bilateral fingers. Respiratory: Airway is patent Respiratory effort is even, unlabored, Respiratory pattern is regular, symmetrical, Denies cough, shortness of breath pain with respiration, pain with cough, pain with movement. GI: Abdomen is non-distended, Bowel sounds present X 4 quads. Abd is soft X 4 quads Abd is non tender in right upper quadrant, right lower quadrant and left lower quadrant Abdomen is tender to palpation in left upper quadrant. : Denies burning with urination, urinary frequency. EENT: Nares are clear Oral mucosa is moist. Throat is clear. Derm: Skin is intact, is healthy with good turgor, Skin is dry. Musculoskeletal: Circulation, motion, and sensation intact. Range of motion: intact in all extremities, Swelling absent. 17:34 Reassessment: Patient appears in no apparent distress at this time. Patient and/or ss family updated on plan of care and expected duration. Pain level reassessed. Patient is alert, oriented x 3, equal unlabored respirations, skin warm/dry/pink. Patient denies pain at this time. Patient states feeling better. 17:55 Reassessment: Patient appears in no apparent distress at this time. Patient and/or ss family updated on plan of care and expected duration. Pain level reassessed. Patient is alert, oriented x 3, equal unlabored respirations, skin warm/dry/pink. awaiting room assignment for admission. 19:20 Reassessment: Patient and/or family updated on plan of care and expected duration. Pain bb level reassessed. Patient is alert, oriented x 3, equal unlabored respirations, skin warm/dry/pink. pt resting quietly, states pain is coming back and he is feeling nauseous again, IV site intact, patent, awaiting room assignment. 19:43 Reassessment: report given to Renée GERMAIN. bb Vital Signs: 13:41 BP 132 / 78; Pulse 84; Resp 16 S; Temp 99.2(TE); Pulse Ox 98% on R/A; Weight 72.57 kg aa5 (R); Height 5 ft. 9 in. (175.26 cm) (R); Pain 7/10; 17:34 BP 103 / 71; Pulse 66; Resp 15; Pulse Ox 97% on R/A; Pain 4/10; ss 19:33 BP 110 / 80; Pulse 64; Resp 14 S; Temp 98.4(O); Pulse Ox 97% on R/A; bb 13:41 Body Mass Index 23.63 (72.57 kg, 175.26 cm) aa5 Lori Coma Score: 17:34 Eye Response: spontaneous(4). Verbal Response: oriented(5). Motor Response: obeys ss commands(6). Total: 15. ED Course: 13:25 Patient arrived in ED. mr 13:25 Monroe Valdes DO is Private Physician. mr 13:40 Triage completed. aa5 13:40 Arm band placed on. aa5 14:17 Tiarra Borrego, JESSA is Primary Nurse. ss 14:17 Patient has correct armband on for positive identification. Placed in gown. Bed in low ss position. Call light in reach. Side rails up X 1. Pulse ox on. NIBP on. 14:17 Patient maintains SpO2 saturation greater than 95% on room air. ss 14:19 Vincent Avendaño MD is Attending Physician. gs 14:52 Inserted saline lock: 22 gauge in left antecubital area, using aseptic technique. Blood ss collected. 19:27 Lex Shah MD is Hospitalizing Provider. rg2 19:44 No provider procedures requiring assistance completed. Patient admitted, IV remains in bb place. Administered Medications: 14:55 Drug: NS 0.9% 1000 ml Route: IV; Rate: 1 bolus; Site: left antecubital; ss 15:55 Follow up: IV Status: Completed infusion ss 14:55 Drug: Zofran 4 mg Route: IVP; Site: left antecubital; ss 17:35 Follow up: Response: No adverse reaction ss 15:13 Drug: morphine 4 mg Route: IVP; Site: left antecubital; ss 17:57 Follow up: Response: No adverse reaction; Pain is unchanged, physician notified ss 16:45 Drug: morphine 4 mg Route: IVP; Site: left antecubital; aa5 17:34 Follow up: Response: No adverse reaction; Pain is decreased ss 16:45 Drug: Zofran 4 mg Route: IVP; Site: left antecubital; aa5 17:34 Follow up: Response: No adverse reaction; Nausea is decreased ss Outcome: 16:38 Decision to Hospitalize by Provider. gs 19:44 Admitted to Tele accompanied by tech, via stretcher, room 210, with chart, Report bb called to Renée GERMAIN 19:44 Condition: stable 19:44 Instructed on the need for admit. 19:49 Patient left the ED. bb Signatures: Doug Steinberg rg2 Corina Leslie mr Shelbi Bustamante RN RN bb Nilsa Serrano RN RN aa5 Tiarra Borrego RN RN Vincent Avendaño MD MD Ted Evangelista, JESSA RN mg2
--- NOTE | 2018-02-03 16:39 | EDPHYS ---
Physician Documentation [facility] Name: Thong Fuchs Jr Age: 47 yrs Sex: Male : 1970 Arrival Date: 02/03/2018 Time: 13:25 Bed 23 Private MD: Monroe Valdes H ED Physician Vincent Avendaño HPI: 02/03 18:12 This 47 yrs old Male presents to ER via Ambulatory with complaints of gs Abdominal Pain. 18:12 The patient presents with abdominal pain that is diffuse. Onset: The symptoms/episode gs began/occurred yesterday. The symptoms do not radiate. Associated signs and symptoms: Pertinent positives: nausea and vomiting. The symptoms are described as constant. Modifying factors: The symptoms are alleviated by nothing, the symptoms are aggravated by alcohol. Severity of pain: At its worst the pain was moderate in the emergency department the pain is unchanged. The patient has experienced similar episodes in the past, multiple times, chronically. The patient has not recently seen a physician. Historical: - Allergies: 13:40 Compazine; aa5 13:40 Reglan; aa5 13:40 Sulfa (Sulfonamide Antibiotics); aa5 - Home Meds: 17:55 azithromycin 250 mg Oral tab 1 tab once daily [Active]; clonazepam 2 mg Oral tab 1 tab mg2 2 times per day [Active]; hydrocodone-acetaminophen 10-325 mg Oral tab 1 tab every 6 hours [Active]; lamotrigine 200 mg Oral tab 2 tabs once daily [Active]; lithium carbonate 600 mg Oral cap 1 cap at bedtime [Active]; meclizine 25 mg Oral TbEC 1 tab 2 times per day [Active]; omeprazole 40 mg Oral cpDR 2 times per day [Active]; quetiapine 200 mg Oral tab once daily [Active]; terbinafine HCl 250 mg Oral tab 1 tab once daily [Active]; venlafaxine 150 mg Oral cp24 once daily [Active]; - PMHx: 13:40 Anxiety; Depression; guillain barre; Hypertension; PANCREATIC CALCIFICATION; aa5 Pancreatitis; - PSHx: 13:40 None; aa5 - Immunization history:: Adult Immunizations up to date. - Social history:: Smoking status: Patient uses tobacco products, 3 cigarettes a day . - Ebola Screening: : No symptoms or risks identified at this time. ROS: 18:12 All other systems are negative. gs Exam: 18:12 Head/Face: Normocephalic, atraumatic. Eyes: Pupils equal round and reactive to light, gs extra-ocular motions intact. Lids and lashes normal. Conjunctiva and sclera are non-icteric and not injected. Cornea within normal limits. Periorbital areas with no swelling, redness, or edema. ENT: Nares patent. No nasal discharge, no septal abnormalities noted. Tympanic membranes are normal and external auditory canals are clear. Oropharynx with no redness, swelling, or masses, exudates, or evidence of obstruction, uvula midline. Mucous membranes moist. Neck: Trachea midline, no thyromegaly or masses palpated, and no cervical lymphadenopathy. Supple, full range of motion without nuchal rigidity, or vertebral point tenderness. No Meningismus. Chest/axilla: Normal chest wall appearance and motion. Nontender with no deformity. No lesions are appreciated. Cardiovascular: Regular rate and rhythm with a normal S1 and S2. No gallops, murmurs, or rubs. Normal PMI, no JVD. No pulse deficits. Respiratory: Lungs have equal breath sounds bilaterally, clear to auscultation and percussion. No rales, rhonchi or wheezes noted. No increased work of breathing, no retractions or nasal flaring. Skin: Warm, dry with normal turgor. Normal color with no rashes, no lesions, and no evidence of cellulitis. MS/ Extremity: Pulses equal, no cyanosis. Neurovascular intact. Full, normal range of motion. Neuro: Awake and alert, GCS 15, oriented to person, place, time, and situation. Cranial nerves II-XII grossly intact. Motor strength 5/5 in all extremities. Sensory grossly intact. Cerebellar exam normal. Normal gait. 18:12 Constitutional: The patient appears alert, awake. 18:12 Abdomen/GI: Palpation: mild abdominal tenderness, in all quadrants. Vital Signs: 13:41 BP 132 / 78; Pulse 84; Resp 16 S; Temp 99.2(TE); Pulse Ox 98% on R/A; Weight 72.57 kg aa5 (R); Height 5 ft. 9 in. (175.26 cm) (R); Pain 7/10; 17:34 BP 103 / 71; Pulse 66; Resp 15; Pulse Ox 97% on R/A; Pain 4/10; ss 19:33 BP 110 / 80; Pulse 64; Resp 14 S; Temp 98.4(O); Pulse Ox 97% on R/A; bb 13:41 Body Mass Index 23.63 (72.57 kg, 175.26 cm) aa5 [place] Coma Score: 17:34 Eye Response: spontaneous(4). Verbal Response: oriented(5). Motor Response: obeys ss commands(6). Total: 15. MDM: 14:44 Patient medically screened. gs 18:12 Differential diagnosis: gastritis, non-specific abd pain, pancreatitis, Peptic Ulcer gs Disease. Data reviewed: vital signs, nurses notes. Response to treatment: the patient's symptoms have mildly improved after treatment, and as a result, I will discharge patient. 02/03 14:32 Order name: Urine Dipstick--Ancillary (enter results); Complete Time: 16:35 02/03 14:45 Order name: Basic Metabolic Panel; Complete Time: 16:35 02/03 14:45 Order name: CBC with Diff; Complete Time: 16:35 02/03 14:45 Order name: Hepatic Function; Complete Time: 16:35 02/03 16:35 Interpretation: ALT 19. 02/03 14:45 Order name: Lipase; Complete Time: 16:35 02/03 14:45 Order name: Urine Microscopic Only; Complete Time: 16:35 02/03 14:45 Order name: IV Saline Lock; Complete Time: 14:55 02/03 14:45 Order name: Labs collected and sent; Complete Time: 14:55 02/03 15:28 Order name: CBC Smear Scan; Complete Time: 16:35 EDMS 02/03 14:45 Order name: Urine Dipstick-Ancillary (obtain specimen); Complete Time: 14:55 Administered Medications: 14:55 Drug: NS 0.9% 1000 ml Route: IV; Rate: 1 bolus; Site: left antecubital; ss 15:55 Follow up: IV Status: Completed infusion ss 14:55 Drug: Zofran 4 mg Route: IVP; Site: left antecubital; ss 17:35 Follow up: Response: No adverse reaction ss 15:13 Drug: morphine 4 mg Route: IVP; Site: left antecubital; ss 17:57 Follow up: Response: No adverse reaction; Pain is unchanged, physician notified ss 16:45 Drug: morphine 4 mg Route: IVP; Site: left antecubital; aa5 17:34 Follow up: Response: No adverse reaction; Pain is decreased ss 16:45 Drug: Zofran 4 mg Route: IVP; Site: left antecubital; aa5 17:34 Follow up: Response: No adverse reaction; Nausea is decreased ss Disposition: 02/03/18 16:38 Hospitalization ordered by Lex Shah for Inpatient Admission. Preliminary diagnosis is Acute pancreatitis. - Bed requested for Telemetry/MedSurg (Inpatient). - Status is Inpatient Admission. bb - Condition is Stable. - Problem is new. - Symptoms have improved. UTI on Admission? No Signatures: Dispatcher [employer] EDMS Doug Steinberg rg2 Shelbi Bustamante RN RN bb Calderon, Audri, RN RN aa5 Tiarra Borrego RN RN Vincent Avendaño MD MD Ted Evangelista RN RN mg2 Corrections: (The following items were deleted from the chart) 19:27 16:38 Hospitalization Ordered by for Inpatient Admission. Preliminary diagnosis is rg2 Acute pancreatitis. Bed requested for Telemetry/MedSurg (Inpatient). Status is Inpatient Admission. Condition is Stable. Problem is new. Symptoms have improved. UTI on Admission? No. 19:49 19:27 02/03/2018 16:38 Hospitalization Ordered by Lex Shah MD for Inpatient bb Admission. Preliminary diagnosis is Acute pancreatitis. Bed requested for Telemetry/MedSurg (Inpatient). Status is Inpatient Admission. Condition is Stable. Problem is new. Symptoms have improved. UTI on Admission? No. rg2
[2018-02-03] MEDS ORDERED: ACETAMINOPHEN 650MG/RECT SUPP PR PRN (17:03)
[2018-02-03] MEDS: MORPHINE 4 MG/ML SYR IV PRN (20:34)
[2018-02-03] MEDS: ONDANSETRON 4 MG/2 ML VIAL IV PRN (20:34)
[2018-02-03] MEDS: NA CHLORIDE 0.9% 1,000 ML IV SCH (20:35)
[2018-02-03 21:56] VITALS: BMI 22.8
[2018-02-03] MEDS ORDERED: LORazepam 2 MG/ML VIAL IV ONE (22:29)
[2018-02-04] MEDS: NA CHLORIDE 0.9% 1,000 ML IV SCH ×4 (01:38→21:30)
[2018-02-04] MEDS: MORPHINE 4 MG/ML SYR IV PRN ×7 (01:38→22:26)
[2018-02-04] MEDS: ONDANSETRON 4 MG/2 ML VIAL IV PRN ×6 (01:44→22:26)
[2018-02-04] MEDS ORDERED: LORazepam 2 MG/ML VIAL IV ONE ×2 (02:42→03:33)
[2018-02-04 05:12] LABS: Absolute Monocytes 0.4 K/uL (0.1-1.3); Absolute Neutrophil 1.6 K/uL (1.8-8.0); Eosinophils % 5.5 % (0-4.4); Hematocrit 36.8 % (39.6-49.0); Lymphocytes % 46.6 % (15.3-44.8); MCH 31.2 pg (27.0-35.0); MCV 92.6 fL (80-100); MPV 8.9 fL (7.6-11.3); Monocytes % 9.1 % (3.3-12.3); RBC Red Blood Cell Count 3.98 M/uL (4.33-5.43)
[2018-02-04 05:34] LABS: Albumin 3.4 g/dL (3.4-5.0); Bilirubin Total 0.4 mg/dL (0.2-1.0); Potassium 4.1 mmol/L (3.5-5.1); Protein, Total 6.3 g/dL (6.4-8.2)
--- NOTE | 2018-02-04 07:09 | P.HP ---
Certification for Inpatient Patient admitted to: Inpatient With expected LOS: >2 Midnights Patient will require the following post-hospital care: None Practitioner: I am a practitioner with admitting privileges, knowledge of patient current condition, hospital course, and medical plan of care. Services: Services provided to patient in accordance with Admission requirements found in Title 42 Section 412.3 of the Code of Federal Regulations Patient History Date of Service: 02/03/18 Reason for admission: Acute pancreatitis History of Present Illness: Patient is a 47-year-old gentleman with longstanding history of pancreatitis, who presents to the hospital with abdominal pain in epigastric tenderness. The pain radiates to the back. This is similar to his pancreatitis pain that he has had in the past. Patient normally takes narcotics when he is in the hospital. He has been following up with GI in [place] as well as pain specialist. He states to me that about a week ago he decided to stop his narcotics. He did not want a take them any longer. A few days later he developed the abdominal pain with radiation to his back. He came to the emergency room and his lipase was significantly elevated. He was admitted to the hospital for further evaluation. Allergies metoclopramide HCl [From Reglan] Allergy (Mild, Verified 02/03/18 20:11) anxious prochlorperazine edisylate [From Compazine] Allergy (Mild, Verified 02/03/18 20: 11) anxous prochlorperazine maleate [From Compazine] Allergy (Mild, Verified 02/03/18 20:11 ) anxious Sulfa (Sulfonamide Antibiotics) [Sulfa(Sulfonamide Antibiotics)] Allergy (Mild, Verified 02/03/18 20:11) Hives/Rash sulfamethoxazole [From Bactrim] Allergy (Verified 02/03/18 20:11) Hives/Rash trimethoprim [From Bactrim] Allergy (Verified 02/03/18 20:11) Hives/Rash Home Medications: LORazepam [Ativan] 2 mg PO BID PRN 02/04/18 Hooper Carbonate [Lithotabs 300MG] 600 mg PO BEDTIME 02/04/18 Omeprazole [Prilosec] 1 tab PO BID 02/04/18 Quetiapine [Seroquel] 200 mg PO BEDTIME 02/04/18 Venlafaxine HCl [Effexor XR] 1 tab PO BEDTIME 02/04/18 lamoTRIgine [Lamotrigine] 2 tab PO BEDTIME 02/04/18 - Past Medical/Surgical History Has patient received pneumonia vaccine in the past: No Diabetic: No -: 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 No children. He reports that he is rojo. - Family History Father Medical History: Heart disease Mother History Unknown: Yes - Social History Smoking Status: Current every day smoker Alcohol use: No CD- Drugs: No Caffeine use: No Place of Residence: Home Review of Systems 10-point ROS is otherwise unremarkable Physical Examination - Vital Signs Temperature: 97.8 F Blood Pressure: 100/66 Pulse: 80 Respirations: 16 Pulse Ox (%): 95 - Physical Exam General: Alert, In no apparent distress, Oriented x3 HEENT: Atraumatic, PERRLA, Mucous membr. moist/pink, EOMI, Sclerae nonicteric Neck: Supple, 2+ carotid pulse no bruit, No LAD, Without JVD or thyroid abnormality Respiratory: Clear to auscultation bilaterally, Normal air movement Cardiovascular: Regular rate/rhythm, Normal S1 S2, No murmurs Capillary refill: <2 Seconds Gastrointestinal: Soft and benign, W/out succussion splash, W/out hepatosplenomegaly, W/out hepatomegaly, Distended, Tenderness Musculoskeletal: No clubbing, No swelling, No tenderness Integumentary: No rashes Neurological: Normal gait, Normal speech, Normal strength at 5/5 x4 extr, Normal tone, Sensation intact, Cranial nerves 3-12 intact, Normal affect Lymphatics: No axilla or inguinal lymphadenopathy - Studies Laboratory Data (last 24 hrs) 02/03/18 14:53: WBC 6.4, Hgb 13.4 L, Hct 40.3, Plt Count 192 02/03/18 14:53: Sodium 140, Potassium 3.9, BUN 10, Creatinine 1.10, Glucose 89, Total Bilirubin 0.2, AST 12 L, ALT 19, Alkaline Phosphatase 52, Lipase 1471 H Assessment & Plan - Problems (Diagnosis) (1) Acute on chronic pancreatitis Onset Date: 10/24/16 Current Visit: No Status: Acute (2) Vomiting Onset Date: 10/02/16 Current Visit: No Status: Acute (3) Anxiety Onset Date: 09/27/14 Current Visit: No Status: Chronic (4) Chronic pain Current Visit: No Status: Chronic Qualifiers: (5) Depression Onset Date: 09/27/14 Current Visit: No Status: Chronic Qualifiers: (6) Hypertension Onset Date: 09/27/14 Current Visit: No Status: Chronic Qualifiers: (7) Guillain [place] syndrome Current Visit: No Status: Suspected - Plan Plan: 1. IV hydration 2. Pain control 3. Monitor neurologic status. If he is back to his baseline then he can possibly start oral diet and advance as tolerated. Repeat labs & lipase level in the morning. 4. GI and DVT prophylaxis Discharge Plan: Home Plan to discharge in: Greater than 2 days - Advance Directives Does patient have a Living Will: No Does patient have a Durable POA for Healthcare: No - Code Status/Comfort Care Code Status Assessed: Yes Code Status: Full Code Critical Care: No Time Spent Managing PTS Care (In Minutes): 65
[2018-02-04] MEDS ORDERED: LORAZEPAM 1 MG TABLET PO PRN (12:46)
--- NOTE | 2018-02-04 20:46 | PN ---
Date of Progress Note: 02/04/2018 Subjective: The patient seen and examined. Chart reviewed and case discussed with RN. The patient states his pain has improved. Still having some nausea, willing to try some liquid diet. Review of Systems: Negative except as above. Medications: List reviewed. Objective: Vital Signs: Temperature 97.2, heart rate 54, blood pressure 110/66, respirations 18, ox ygen 95% on room air. General: Awake, alert, oriented x3, in some mild distress. CV: S1, S2. No murmurs. Regular rate and rhythm. Peripheral pulses present. Respiratory: Moving air well bilaterally. No wheezing. No stridor. No use of accessory muscles Ga strointestinal: Abdomen is soft. Mild tenderness to palpation. No distention. Positive bowel soun ds. No guarding or rigidity. Extremities: No clubbing, cyanosis, or edema. Neurologic: Nonfocal. Laboratory Data: Sodium 142, potassium 4.1, chloride 110, CO2 27, BUN 10, creatinine 1, glucose 81, calcium 8.3, total bilirubin 0.4, AST 11, ALT 15, lipase 263. WBC 4.3, H and H 12.4, 36.8, platelets 158, neutrophils 37%. Assessment And Plan: A 47-year-old male with: 1.Acute on chronic pancreatitis, improving. Lipase level has normalized. We will start on full liq uid diet and advance as tolerated. Continue with IV pain medications and IV fluids. The patient cou nseled regarding alcohol. 2.Intractable nausea and vomiting, improving. Continue IV antiemetics. 3.Generalized anxiety disorder. We will resume home medications. 4.Chronic pain syndrome. 5.Major depressive disorder. Resume home medications. 6.Essential hypertension. 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 8.Gastroesophageal reflux disease without esophagitis. PPI. 9.Nicotine dependence with cigarette smoking, continuous. The patient has been counseled. Plan: Likely discharge in the next 12-24 hours as he improves with his diet and pain. /UZMA Voice ID: [id number] Report ID: [id number]
[2018-02-04] MEDS: VENLAFAXINE HCL XR 75 MG CAP PO SCH (21:00)
[2018-02-04] MEDS: QUETIAPINE 100MG TAB PO SCH (21:28)
[2018-02-04] MEDS: PANTOPRAZOLE 40MG TABLET PO SCH (21:28)
[2018-02-04] MEDS: LITHIUM CARBONATE 300 MG TAB PO SCH (21:29)
[2018-02-04] MEDS: lamoTRIgine 100 MG TAB PO SCH (21:29)
[2018-02-04] MEDS: LORAZEPAM 1 MG TABLET PO SCH (22:25)
[2018-02-05] MEDS: ONDANSETRON 4 MG/2 ML VIAL IV PRN ×3 (04:30→20:48)
[2018-02-05] MEDS: MORPHINE 4 MG/ML SYR IV PRN ×3 (04:30→20:48)
[2018-02-05] MEDS: NA CHLORIDE 0.9% 1,000 ML IV SCH ×4 (04:30→23:34)
[2018-02-05 07:35] LABS: Absolute Lymphocytes (CBC) 1.6 K/uL (0.7-4.9); Absolute Monocytes 0.4 K/uL (0.1-1.3); Absolute Neutrophil 1.7 K/uL (1.8-8.0); Basophils % 0.7 % (0-1.3); Eosinophils % 7.7 % (0-4.4); Hematocrit 38.1 % (39.6-49.0); Lymphocytes % 40.2 % (15.3-44.8); MCH 30.8 pg (27.0-35.0); MCV 92.4 fL (80-100); MPV 9.5 fL (7.6-11.3); RBC Red Blood Cell Count 4.12 M/uL (4.33-5.43)
[2018-02-05 07:44] LABS: ALT/SGPT 15 U/L (12-78); AST/SGOT 12 U/L (15-37); Albumin 3.2 g/dL (3.4-5.0); Alkaline Phosphatase 47 U/L (45-117); BUN Blood Urea Nitrogen 8 mg/dL (7-18); Bicarbonate 27 mmol/L (21-32); Bilirubin Total 0.2 mg/dL (0.2-1.0); Glucose Level 78 mg/dL (74-106); Magnesium 2.2 mg/dL (1.8-2.4); Potassium 4.8 mmol/L (3.5-5.1); Protein, Total 5.9 g/dL (6.4-8.2); Sodium Level 145 mmol/L (136-145)
[2018-02-05] MEDS: PANTOPRAZOLE 40MG TABLET PO SCH (09:23)
[2018-02-05] MEDS: LORAZEPAM 1 MG TABLET PO SCH ×2 (09:23→20:40)
[2018-02-05] MEDS: VENLAFAXINE HCL XR 75 MG CAP PO SCH ×2 (09:26→20:45)
[2018-02-05] MEDS ORDERED: SODIUM CHLORIDE 0.9% 10ML INJ IV PRN (13:22)
--- NOTE | 2018-02-05 14:48 | RAD REPORT ---
EXAM DESCRIPTION: RAD - Chest Single View - 02/05/2018 2:32 pm CLINICAL HISTORY: Picc line placement<Reason For Exam>Picc line placement COMPARISON: Chest Single View dated 12/04/2017. FINDINGS: Portable chest was obtained following placement of a right upper extremity PICC line. The catheter tip is in the proximal SVC.
--- NOTE | 2018-02-05 18:04 | PN ---
Date of Progress Note: 02/05/2018 Subjective: The patient is seen and examined. Chart reviewed and case discussed with RN. The patie nt unfortunately was unable to tolerate his diet yesterday, had multiple episodes of nausea and vomit ing. Still complaining of pain and lost his IV. Review of Systems: Negative except as above. Medications: List reviewed. Physical Examination: Vital Signs: Temperature 98, heart rate 61, blood pressure 102/63, respirations 18, O2 96% on room a ir. General: Awake, alert, oriented x3. Some mild distress, ill-appearing male. CV: S1, S2. No murmurs. Regular rate and rhythm. Peripheral pulses present. Respiratory: Moving air well bilaterally. No wheezing. No stridor. Gastrointestinal: Abdomen is soft. Tenderness to palpation. Not distended. No rebound or guarding . Positive bowel sounds. Extremities: No clubbing, cyanosis, edema. Neurologic: Nonfocal. Laboratory Data: Sodium 145, potassium 4.8, chloride 114, CO2 27, BUN 8, creatinine 0.8, glucose 78, calcium 8.5, magnesium 2.2. WBC 4.1, H and H 12.7 and 38.1, platelets 163. CT scan of the abdomen is pending. Assessment And Plan: A 47-year-old male with: 1.Acute on chronic pancreatitis. The patient still complaining of pain, having nausea and vomiting, unable to tolerate diet. We will keep n.p.o. We will continue with IV fluids and pain medications once IV access is restored. 2.Intractable nausea and vomiting. Continue antiemetics. Keep n.p.o. for now. 3.Generalized anxiety disorder, stable. 4.Chronic pain syndrome, on pain medications. 5.Major depressive disorder. 6.Essential hypertension, stable. 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 8.Gastroesophageal reflux disease without esophagitis. Continue PPI. We will switch to IV. 9.Nicotine dependence with cigarette smoking. Counseled. Followup with CT abdomen. SA/MODL Voice ID: [id number] Report ID: [id number]
--- NOTE | 2018-02-05 20:12 | RAD REPORT ---
EXAM DESCRIPTION: RAD - Abdomen Acute Series - 02/05/2018 8:02 pm CLINICAL HISTORY: abd pain<Reason For Exam>abd pain COMPARISON: Chest Single View dated 02/05/2018; Chest Single View dated 12/04/2017; Chest Single View dated 05/28/2017; Chest Single View dated 12/17/2015; Abdomen Pelvis W Contrast dated 01/30/2018<John risons> FINDINGS: Lungs are clear. Heart size and pulmonary vasculature are normal. No pleural effusion, pne umothorax or other acute cardiopulmonary process seen. No new or progressive lung parenchymal process . PICC line tip is the mid to distal SVC on the current examination. Bowel gas pattern is nonspecific. No free air or pneumatosis. Stomach is not dilated. Several loops o f dilated small bowel seen in the mid abdomen. This could be early obstruction or more likely enterit is. No suspicious calcifications. No other suspicious for significant findings. IMPRESSION: Dilated mid abdomen small bowel. This could be early obstruction or more likely enteriti s. No free air or surgically emergent finding. No acute chest finding.
[2018-02-05] MEDS: lamoTRIgine 100 MG TAB PO SCH (20:40)
[2018-02-05] MEDS: QUETIAPINE 100MG TAB PO SCH (20:42)
[2018-02-05] MEDS: LITHIUM CARBONATE 300 MG TAB PO SCH (20:43)
[2018-02-06 05:14] LABS: Absolute Lymphocytes (CBC) 1.5 K/uL (0.7-4.9); Absolute Monocytes 0.4 K/uL (0.1-1.3); Absolute Neutrophil 2.3 K/uL (1.8-8.0); Basophils % 0.9 % (0-1.3); Eosinophils % 5.7 % (0-4.4); Hematocrit 35.4 % (39.6-49.0); Lymphocytes % 33.8 % (15.3-44.8); MCH 31.4 pg (27.0-35.0); MCV 91.5 fL (80-100); MPV 8.8 fL (7.6-11.3); Monocytes % 8.8 % (3.3-12.3); RBC Red Blood Cell Count 3.87 M/uL (4.33-5.43)
[2018-02-06 05:39] LABS: Albumin 3.1 g/dL (3.4-5.0); Bilirubin Total 0.3 mg/dL (0.2-1.0); Potassium 3.8 mmol/L (3.5-5.1); Protein, Total 5.6 g/dL (6.4-8.2)
[2018-02-06] MEDS ORDERED: KCL 20 MEQ/100 mL IVPB 20 MEQ/100 ML BAG IV SCH (06:00)
[2018-02-06] MEDS: NA CHLORIDE 0.9% 1,000 ML IV SCH ×3 (06:10→22:35)
[2018-02-06] MEDS: ONDANSETRON 4 MG/2 ML VIAL IV PRN ×3 (06:20→22:36)
[2018-02-06] MEDS: MORPHINE 4 MG/ML SYR IV PRN ×5 (06:20→22:37)
[2018-02-06] MEDS: LORAZEPAM 1 MG TABLET PO SCH ×2 (09:00→22:40)
[2018-02-06] MEDS: PANTOPRAZOLE 40 MG INJ IVP SCH (09:00)
[2018-02-06] MEDS: METRONIDAZOLE 500mg IVPB 500 MG/100 ML BAG IV SCH ×2 (09:00→17:08)
[2018-02-06] MEDS: CIPROFLOXACIN 400mg IV 400 MG/200 ML BAG IV SCH ×2 (09:00→22:35)
--- NOTE | 2018-02-06 14:56 | PN ---
Date of Progress Note: 02/06/2018 Subjective: The patient is seen and examined. Chart reviewed and case discussed with RN. The patie nt states he is feeling better. Pain is intermittent. No further nausea or vomiting. Wants to eat oatmeal. Review of Systems: Negative except as above. Medications: List reviewed. Physical Examination: Vital Signs: Temperature 98.4, heart rate 61, blood pressure 101/62, respirations 16, O2 98% on room air. General: Awake, alert, oriented x3, not in any acute distress. CV: S1, S2. No murmurs. Re gular rate and rhythm. Peripheral pulses present. Respiratory: Moving air well bilaterally. No wh eezing. Gastrointestinal: Abdomen has slight tenderness to palpation in the left lower quadrant. N o rebound or guarding. No distention. Positive bowel sounds. Extremities: No clubbing, cyanosis, edema. Neurologic: Nonfocal. Laboratory Data: Sodium 142, potassium 3.8, chloride 109, CO2 of 30, BUN 7, creatinine 1, glucose 77 , calcium 8, albumin 3.1. WBC 4.5, H and H 12.1 and 35.4, platelets 161. Acute abdominal series fro m 02/05, shows dilated mid abdomen small bowel could be early obstruction or more likely enteritis. No free air or surgically emergent finding. No acute chest finding. Assessment And Plan: A 47-year-old male with: 1.Acute on chronic pancreatitis, resolving. No necrosis. We will advance diet. Lipase is normaliz ed. Continue IV fluids and pain medications. 2.Enteritis. We will start on IV antibiotics and continue with IV fluids. 3.Intractable nausea and vomiting, improving. Would start on full liquid diet. 4.Generalized anxiety disorder, stable. 5.Chronic pain syndrome, on pain medications. 6.Major depressive disorder, stable. 7.Essential hypertension, stable, on medications. 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 9.Gastroesophageal reflux disease without esophagitis. Continue PPI. 10.Nicotine dependence with cigarette smoking. Counseled. Plan: Advance diet as tolerated. Likely discharge in the next 24 to 48 hours once improves. SA/MODL Voice ID: [id number] Report ID: [id number]
[2018-02-06] MEDS: VENLAFAXINE HCL XR 75 MG CAP PO SCH (21:00)
[2018-02-06] MEDS: QUETIAPINE 100MG TAB PO SCH (22:41)
[2018-02-06] MEDS: lamoTRIgine 100 MG TAB PO SCH (22:41)
[2018-02-06] MEDS: LITHIUM CARBONATE 300 MG TAB PO SCH (22:42)
[2018-02-07] MEDS: METRONIDAZOLE 500mg IVPB 500 MG/100 ML BAG IV SCH ×2 (01:04→09:07)
[2018-02-07] MEDS: ONDANSETRON 4 MG/2 ML VIAL IV PRN ×3 (02:54→10:43)
[2018-02-07] MEDS: MORPHINE 4 MG/ML SYR IV PRN ×3 (02:54→10:43)
[2018-02-07 05:25] LABS: BUN Blood Urea Nitrogen 6 mg/dL (7-18); Bicarbonate 32 mmol/L (21-32); Glucose Level 87 mg/dL (74-106); Potassium 3.7 mmol/L (3.5-5.1); Sodium Level 142 mmol/L (136-145)
[2018-02-07] MEDS ORDERED: KCL 20 MEQ/100 mL IVPB 20 MEQ/100 ML BAG IV SCH (06:00)
[2018-02-07 08:26] VITALS: TEMP 97.6
[2018-02-07] MEDS ORDERED: VENLAFAXINE HCL XR 75 MG CAP PO SCH (09:00)
[2018-02-07] MEDS: PANTOPRAZOLE 40 MG INJ IVP SCH (09:08)
[2018-02-07] MEDS: CIPROFLOXACIN 400mg IV 400 MG/200 ML BAG IV SCH (09:08)
[2018-02-07] MEDS: LORAZEPAM 1 MG TABLET PO SCH (09:22)
--- NOTE | 2018-02-07 09:44 | RAD REPORT ---
EXAM DESCRIPTION: RAD - Abdomen Single View - 02/07/2018 9:34 am CLINICAL HISTORY: abdominal pain Pain COMPARISON: Abdomen Pelvis W Contrast dated 01/30/2018 FINDINGS: The bowel gas pattern is non-obstructive. No evidence of free air or pneumatosis. No suspi cious calcifications. Mild arthritic changes in both hips. Cholecystectomy clips. IMPRESSION: Negative examination.
[2018-02-07 11:50] VITALS: BP 108/70
[2018-02-07 13:21] VITALS: O2SAT 96
--- NOTE | 2018-02-08 07:38 | DS ---
Date of Discharge: 02/07/2018 Admitting Diagnoses: 1.Acute on chronic pancreatitis. 2.Intractable nausea and vomiting. 3.Generalized anxiety disorder. 4.Chronic pain syndrome. 5.Major depressive disorder. 6.Essential hypertension. 7.Guillain-[place] syndrome. Discharge Diagnoses: 1.Acute on chronic pancreatitis, resolved. 2.Acute enteritis, improved. 3.Intractable nausea and vomiting, resolved, tolerating soft diet. 4.Generalized anxiety disorder, stable. 5.Chronic pain syndrome, on chronic pain medication. 6.Major depressive disorder, stable. 7.Essential hypertension, stable. 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 9.Gastroesophageal reflux disease without esophagitis. 10.Nicotine dependence with cigarette smoking. Hospital Course: The patient is a 47-year-old male with past medical history of recurrent pancreatit is, comes in with abdominal pain. The patient was noted to have elevated lipase level. He had his C T scan done on 01/30, which was negative, therefore was not repeated. Clinically had signs and sympt oms of pancreatitis. He was started on IV fluids, kept n.p.o., and started on IV pain medications an d antiemetics. The patient initially did well. His lipase level normalized. However, he began to h ave further nausea and vomiting and unable to tolerate his diet. He was kept n.p.o. and abdominal se viktor was done which showed some possible ileus and enteritis with some distention. The patient was s tarted on IV antibiotics. The patient was then slowly placed back on clear liquid diet which was adv anced. The patient did well. Repeat abdominal x-ray did not show any abnormalities. The patient wa s able to tolerate a soft diet and he was then discharged in a stable condition. Activity: No driving or operating heavy machinery while on narcotics. Medications: As per medication reconciliation list. Followup: Follow up with primary care physician in 2 to 3 days. Follow up with GI doctor, Dr. Meadows in 2 to 4 weeks. Return to ER for worsening condition. Diet: [place] diet for the next few days. Physical Examination: General: Awake, alert, oriented x3. No acute distress. CV: S1, S2. No murmurs. Respiratory: Moving air well bilaterally. Abdomen: Soft, nontender, nondistended. Positive bowel sounds. Extremities: No clubbing, cyanosis, edema. Neurologic: Nonfocal. Total time spent discharging the patient was 31 minutes. /UZMA Voice ID: [id number] Report ID: [id number]
== END 2018-02-07 13:28 | disposition home or self-care (01) | DRG 440 ==
LOC: ER 13:22 → ERHOLD 16:40 → 2ND 19:27
PROVIDERS: ADMIT Family Medicine; ATTEND Family Medicine
PROC: 02HV33Z Insertion of Infusion Device into Superior Vena Cava, Percutaneous Approach (ICD-10-PCS; principal; 2018-02-05)
DX: K85.90 Acute pancreatitis without necrosis or infection, unspecified (principal); K86.1 Other chronic pancreatitis; K52.9 Noninfective gastroenteritis and colitis, unspecified; F41.1 Generalized anxiety disorder; G89.4 Chronic pain syndrome; F32.9 Major depressive disorder, single episode, unspecified; I10 Essential (primary) hypertension; K21.9 Gastro-esophageal reflux disease without esophagitis; F17.210 Nicotine dependence, cigarettes, uncomplicated; Z88.1 Allergy status to other antibiotic agents; Z88.2 Allergy status to sulfonamides; Z88.8 Allergy status to other drugs, medicaments and biological substances
CPT/HCPCS: 36415; 71045; 74018; 74022; 80048; 80053; 80076; 81003; 81015; 83690; 83735; 85025; 94760; 96361; 96374; 96375; 99285; C9113; J0744; J2405; J7030

== ENCOUNTER 2018-02-11 16:08 | Emergency (ER) | payer SELFPAY ==
--- OUTSIDE RECORDS SUMMARY | 2018-02-11 16:10 | XMS REPORT | Clinical Summary ---
:1970 Author Organization [facility] Address [address] [place] [address] Phone Care Team Providers Name Role Phone [...] disorder, in remission (HCC) 12/04/2017 History of Guillain-[place] syndrome 12/04/2017 Chronic pancreatitis (HCC) 12/04/2017 Gait abnormality 12/04/2017 Encounters Date Type Specialty Care Team Description 12/04/2017 - Hospital Encounter General Internal KristinaaGriselda Anxiety; Chronic 2017 Medicine MD Lindsey pancreatitis, Madelaine, Gaby unspecified Anjelica Elder, pancreatitis type ([facility]);Dizziness;Gait Zindani, abnormality;History MD Yvette of Guillain-[place] syndrome;Recurrent major depressive disorder, in remission ([facility]);Unsteady gait;Bipolar depression ([facility]) after 02/10/2017 Family History Medical History Relation Name Comments [...] contrast (2017 5:32 AM) Specimen Performing Laboratory [facility] Narrative FINAL REPORT MRI brain without contrast [...] MD Report Verified Date/Time:2017 07:15:04 Reading Location: [address] Neuro Reading Room Procedure Note Interface, [...] Report Verified Date/Time: 2017 07:15:04 Reading Location: [address] Neuro Reading Room with platelet count [...] Performing Laboratory Blood - Arm, Right [facility] [address] [place] [address] CBC with platelet count + automated diff (2017 4:48 AM)Only the most recent of2 resultswithin the time period is included. Specimen Performing Laboratory Blood Narrative The following orders were created for panel order CBC with platelet count + automated diff. Procedure Abnormality Status --------- ------ CBC with platelet count ...[[id number]]AbnormalFinal result Please view results for these tests on the individual orders. Magnesium (2017 4:48 AM)Only the most recent of2 resultswithin the time period is included. Component Value Ref Range Magnesium 2.6 1.6 - 2.6 mg/dL Specimen Performing Laboratory Blood - Arm, [address] [address] Basic metabolic panel (2017 4:48 AM)Only the [...] PATIENTS. Specimen Performing Laboratory Blood - Arm, [address] [address] TSH/Free T4 If Indicated (12/05/2017 5:42 AM) Component Value Ref Range TSH 2.05 0.35 - 4.94 uIU/mL Specimen Performing Laboratory Blood [address] [address] Lipase (12/05/2017 5:42 AM) Component Value Ref Range Lipase 96 (H) 8 - 78 U/L Specimen Performing Laboratory Blood [address] [address] [place] level (12/05/2017 5:42 AM) Component Value Ref Range [place] Level 0.6 (L) 0.8 - 1.2 mmol/L Specimen Performing Laboratory Blood [facility] [address] [address] after 02/10/2017
--- OUTSIDE RECORDS SUMMARY | 2018-02-11 16:13 | XMS REPORT | Continuity of Care Document ---
:1970 Author Organization Interface Problems Problem Status Onset Classification Date Comments Source Date Reported ABDOMINAL PAIN Active 02/19/20 [facility] [place] Dis[place] 07/10/19 07/13/2016 [facility] Diagnosis: 17 Generalized abdominal pain LOWER ABD PAIN Active 05/13/20 [place] 14 ABD PAIN, Active 05/13/20 [facility] POSSIBLE ACUTE 14 DIVERTICULITIS Discharge 01/05/20 01/07/2014 [facility] Diagnosis: 14 Abdominal pain NAUSEA OR Active 01/24/20 [facility] VOMITING/ABD PAIN 12 Abdominal pain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 02/21/2017 [place] Anxiety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 02/21/2017 [place] Anxiety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 02/21/2017 depression [place],[facility] Depression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 02/21/2017 [place] 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 [place],[facility] Guillain-[place]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 02/21/2017 [place] Nausea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 02/21/2017 [place] Pancreatitis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 02/21/2017 [place] Pancreatitis,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 02/21/2017 acute [place],[facility] Abdominal pain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 01/26/2012 [facility] Anxiety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 01/26/2012 [facility] Depression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 01/26/2012 [facility] 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 Nausea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 01/26/2012 [place] Pancreatitis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 01/26/2012 [facility] Bipolar disorder,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 06/03/2014 Kaisen Fang unspecified Tension headache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 06/03/2014 Kaisen Fang GERD -Esophageal Active Diagnosis 06/03/2014 Kaisen Fang reflux Chronic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 06/03/2014 Kaisen Fang pancreatitis Allergic rhinitis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 06/03/2014 Kaisen Fang Hypertension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 06/03/2014 Kaisen Fang Diverticulitis of Active Diagnosis 06/03/2014 Kaisen Fang colon ABDMNAL PAIN Active [facility] SITE Medications Medication Details Route Status Patient Ordering Order Source Instructions Provider Date Morphine 2 mg, Route: Inactive IVP, ONCE, 2016 [facility] Dosing Weight 90.909, kg, Priority: STAT, Start date: 07/10/16 0:15:00 [employer], Stop date: 07/10/16 0:15:00 [employer] Phenergan 12.5 mg, Inactive Route: IM, 2016 [facility] ONCE, Dosing Weight 90.909, kg, Priority: STAT, Start date: 07/10/16 0:14:00 [employer], Stop date: 07/10/16 0:14:00 [employer] Zofran 4 mg, Route: Inactive IVP, Drug 2016 [facility] form: INJ, ONCE, Dosing Weight 90.909, kg, Priority: STAT, Start date: 07/09/16 23:36:00 [employer], Stop date: 07/09/16 23:36:00 [employer] Bentyl 20 mg, Route: Inactive IM, ONCE, 2016 [facility] Dosing Weight 90.909, kg, Start date: 07/09/16 22:50:00 [employer], Stop date: 07/09/16 22:50:00 [employer] Morphine 4 mg, 1 mL, Inactive Route: IVP, 2016 [facility] Drug form: SOLN, ONCE, Dosing Weight 90.909, kg, Priority: STAT, Start date: 07/09/16 22:05:00 [employer], Stop date: 07/09/16 22:05:00 CSTNotes: (Same as:MORPhine Sulfate) Sodium Chloride 1,000 mL, Inactive 0.154 MEQ/ML 1,000 ml/hr, 2016 [facility] Injectable Infuse Over: 1 Solution hr, Route: IV, ONCE, Priority: STAT, Dosing Weight 90.909 kg, Start date: 07/09/16 22:04:00 [employer], Duration: 1 doses or times, Stop date: 07/09/16 22:04:00 [employer] Sodium Chloride 1,000 mL, Inactive 0.154 MEQ/ML 1,000 ml/hr, 2016 [facility] Injectable Infuse Over: 1 Solution hr, Route: IV, 1,000, Drug form: INJ, ONCE, Priority: STAT, Dosing Weight 90.909 kg, Start date: 07/09/16 21:47:00 [employer], Duration: 1 doses or times, Stop date: 07/09/16 21:47:00 [employer] Zofran 4 mg, 2 mL, Inactive Route: IVP, 2016 [facility] Drug form: INJ, ONCE, Dosing Weight 90.909, kg, Priority: STAT, Start date: 07/09/16 21:47:00 [employer], Stop date: 07/09/16 21:47:00 CSTNotes: (Same as: Zofran) MEDICATION WASTE Product Size: 4 mg Product Wasted: ___ mg Ativan 1 mg, 0.5 mL, Inactive Route: IVP, 2016 [facility] Drug form: INJ, ONCE, Dosing Weight 90.909, kg, Priority: STAT, Start date: 07/07/16 20:25:00 [employer], Stop date: 07/07/16 20:25:00 CSTNotes: (Same as: Ativan) Morphine 4 mg, 1 mL, Inactive Route: IVP2016 [facility] Drug form: SOLN, ONCE, Dosing Weight 90.909, kg, Priority: STAT, Start date: 07/07/16 20:22:00 [employer], Stop date: 07/07/16 20:22:00 CSTNotes: (Same as:MORPhine Sulfate) Ativan 1 mg, Route: Inactive IVP, Drug 2016 [facility] form: INJ, ONCE, Dosing Weight 90.909, kg, Priority: STAT, Start date: 07/07/16 18:46:00 [employer], Stop date: 07/07/16 18:46:00 [employer] Morphine 4 mg, Route: Inactive IVP, ONCE, 2016 [facility] Dosing Weight 90.909, kg, Priority: STAT, Start date: 07/07/16 18:46:00 [employer], Stop date: 07/07/16 18:46:00 [employer] Zofran 4 mg, 2 mL, Inactive Route: IVP, 2016 [facility] Drug form: INJ, ONCE, Dosing Weight 90.909, kg, Priority: STAT, Start date: 07/07/16 18:12:00 [employer], Stop date: 07/07/16 18:12:00 CSTNotes: (Same as: Zofran) MEDICATION WASTE Product Size: 4 mg Product Wasted: ___ mg Lactated Ringers 1,000 mL, Inactive 1,000 mL Rate: 1,000 2016 [facility] ml/hr, Infuse over: 1 hr, Route: IV, Dosing Weight 90.909 kg, Total Volume: 1,000, Start date: 07/07/16 18:11:00 [employer], Duration: 1 doses or times, Stop date: 07/07/16 19:10:00 [employer] Saline Flush 10 mL, Route: Inactive 0.9% IVP, Drug 2016 [facility] Form: INJ, Dosing Weight 100, kg, PRN, PRN Line Flush, Start date: 07/07/16 17:10:00 [employer], Duration: 30 day, Stop date: 08/06/16 17:09:00 CSTNotes: (Same as: BD Posiflush) Tramadol HCl 1 or 2 tablet Orally Active 50 mg Orally Fang 05/19/ Prachi every 6 hrs 2013 Fang for headache topiramate 25 mg, 1 tab, Inactive Route: PO, 2013 [facility] Drug form: TAB, Bedtime, Dosing Weight 100, kg, Start date: 05/14/14 21:00:00, Duration: 30 day, Stop date: 06/12/14 21:00:00Notes: (Same As: Topamax) "Do Not Crush" Lactulose 667 20 gm=30 ml, Active MG/ML Oral PO, TID, 2013 [facility] Solution constipation, # 1,000 mL, 0 Refill(s) pantoprazole 40 mg, 1 tab, Inactive Route: PO, 2013 [facility] Drug form: ECTAB, Before Dinner, Dosing Weight 100, kg, Start date: 05/14/14 16:30:00, Duration: 30 day, Stop date: 06/12/14 16:30:00Notes: Tablet should not be chewed or crushed. (Same as: Protonix) Lactulose 667 30 gm, 45 mL, Inactive MG/ML Oral Route: PO, 2013 [facility] Solution Drug Form: SYRP, Dosing Weight 100, kg, Daily, NOW, Start date: 05/14/14 12:30:00, Duration: 30 day, Stop date: 06/13/14 9:00:00Notes: (Same as:Chronulac) Clonidine 0.1 mg, 1 tab, Inactive Hydrochloride Route: PO, 2013 [facility] 0.1 MG Oral Drug form: Tablet TAB, [...] mg, 3 cap, Inactive Route: PO, 2013 [facility] Drug form: DRC, Daily, Dosing Weight 100, kg, Start date: 05/14/14 9:00:00, Duration: 30 day, Stop date: 06/12/14 9:00:00Notes: (Same as: Cymbalta) (Do Not Crush) Flagyl 500 mg, 100 No Longer mL, Route: Active 2013 [facility] IVPB, Drug form: INJ, [id number], Start date: 05/13/14 22:00:00, Duration: 30 day, Stop date: 06/12/14 14:00:00Notes: (Same as: Flagyl) Avoid alcohol. Alprazolam 2 MG 2 mg, 2 tab, No Longer Oral Tablet Route: PO, Active 2013 [facility] [Xanax] Drug form: TAB, BID, Dosing Weight 100, kg, Start date: 05/13/14 21:30:00, Duration: 30 day, Stop date: 06/12/14 21:00:00Notes: With food or milk (Same as: Xanax) Zofran 4 mg, 2 mL, No Longer Route: IVP, Active 2013 [facility] Drug form: INJ, Q6H, PRN Nausea, Start date: 05/13/14 21:01:00, Duration: 30 day, Stop date: 06/12/14 21:00:00Notes: (Same as: Zofran) Cipro 400 mg, 200 No Longer mL, Route: [facility] 2013 [facility] IVPB, Drug form: INJ, [id number], Start date: 05/13/14 21:00:00, Duration: 30 day, Stop date: 06/12/14 9:00:00Notes: Do not refrigerate Seroquel 50 mg, 2 tab, No Longer Route: PO, 2013 [facility] Drug form: TAB, Bedtime, Dosing Weight 100, kg, Start date: 05/13/14 21:00:00, Duration: 30 day, Stop date: 06/11/14 21:00:00Notes: (Same as: SEROquel) morphine Sulfate 4 mg, 2 mL, No Longer Route: IV, [facility] 2013 [facility] Drug form: INJ, Q4H, PRN Pain Score 6-10, Start date: 05/13/14 21:00:00, Duration: 30 day, Stop date: 06/12/14 20:59:00Notes: (Same as:MORPhine Sulfate) Sodium Chloride 1,000 mL, No Longer 0.45% IV 1,000 Rate: 125 2013 [facility] mL ml/hr, Infuse over: 8 hr, Route: IV, Dosing Weight 100 kg, Total Volume: 1,000, Start date: 05/13/14 21:00:00, Duration: 30 day, Stop date: 06/12/14 20:59:00 Singulair 10 mg, 1 tab, No Longer Route: PO, 2013 [facility] Drug form: TAB, Bedtime, Dosing Weight 100, kg, Start date: 05/13/14 21:00:00, Duration: 30 day, Stop date: 06/11/14 21:00:00Notes: (Same as:Singulair) Lamictal 250 mg, 2.5 No Longer tab, Route: 2013 [facility] PO, Drug form: TAB, Daily, Dosing Weight [...] tab, No Longer Route: PO, Active 2013 [facility] Drug form: TABDIS, Q8H, Dosing Weight 100, kg, PRN as needed for nausea/vomitin g, Start date: 05/13/14 18:51:00, Stop date: 06/12/14 18:50:00Notes: (Same as: Zofran ODT) Bentyl 20 mg, 1 tab, No Longer Route: PO, Active 2013 [facility] Drug form: TAB, QID, Dosing Weight 100, [...] Active Enteric Coated Daily, # 30 2013 [facility] Capsule cap, 0 [Cymbalta] Refill(s) Alprazolam 2 MG 2 mg, PO, BID, Active Oral Tablet 0 Refill(s) 2013 [facility] [Xanax] pantoprazole 40 =1 Pack, PO, Active MG Granules Daily, # 30 2013 [facility] [Protonix] ea, 0 Refill(s) [place] 1 tablet as Orally Active 10-325 MG [facility] needed Orally every 2013 Fang 6 hrs Dexilant 1 capsule Orally Active 30 MG Orally [facility] Ka Once a day 2013 Metronidazole 1 tablet Orally Active 500 mg Orally [facility] Ka Three times a 2013 day Cipro 1 tablet Orally Active 500 mg Orally [facility] Ka every 12 hrs 2013 Topiramate 1 tablet Orally Active 25 MG Orally [facility] Ka twice a day 2013 Fang (bid) Clonidine HCl 1 tablet at Orally Active 0.1 MG Orally [facility] bedtime twice a day 2013 Fang (bid) Dicyclomine 20 mg=1 tab, Active Hydrochloride 20 PO, QID, 2013 [place] [facility] Oral Tablet abdominal [Bentyl] pain, # 30 tab, 0 Refill(s) Dicyclomine 20 mg=1 tab, Active Hydrochloride 20 PO, QID, 2013 [place] [facility] Oral Tablet abdominal [Bentyl] pain, # 30 tab, 0 Refill(s) Ondansetron 4 MG 4 mg=1 tab, Active Disintegrating PO, Q8H, 2013 [facility] Tablet [Zofran] Nausea and Vomiting, Dissolve tab [...] 0.5 mg, 0.5 Inactive mL, Route: 2013 [facility] IVP, Drug form: INJ, ONCE, Dosing Weight 100, kg, Priority: STAT, Start date: 01/04/14 14:00:00, Stop date: 01/04/14 14:00:00 Sodium Chloride 1,000 mL, Inactive 0.154 MEQ/ML 1,000 ml/hr, 2013 [facility] Injectable Infuse Over: 1 Solution hr, Route: IV, 1,000, Drug form: INJ, ONCE, Priority: STAT, Dosing Weight 100 kg, Start date: 01/04/14 11:44:00, Duration: 1 doses or times, Stop date: 01/04/14 11:44:00 Ondansetron 4 mg, 2 mL, Inactive Route: IVP, 2013 [facility] Drug form: INJ, ONCE, Dosing Weight 100, kg, Priority: STAT, Start date: 01/04/14 11:44:00, Stop date: 01/04/14 11:44:00Notes: (Same as: Zofran) Lorazepam 1 mg, 0.5 mL, Inactive Route: IVP, 2013 [facility] Drug form: INJ, ONCE, Dosing Weight 100, kg, Priority: STAT, Start date: 01/04/14 11:44:00, Stop date: 01/04/14 11:44:00Notes: (Same as: Ativan) Hydromorphone 0.5 mg, 0.5 Inactive mL, Route: 2013 [facility] IVP, Drug form: INJ, ONCE, Dosing Weight 100, kg, Priority: STAT, Start date: 01/04/14 11:44:00, Stop date: 01/04/14 11:44:00 Zofran 4 mg, Route: Inactive IVP, Drug 2013 [facility] form: INJ, ONCE, Dosing Weight 100, kg, Priority: STAT, Start date: 01/04/14 9:52:00, Stop date: 01/04/14 9:52:00 Phenergan 25 mg 25 mg, 1 tab, PO Active Black oral tablet PO, Q4H, PRN, 2011 [facility] 15 tab, Nausea, Substitution Allowed Zofran 4 mg, 2 mL, IVP No Longer Banda Route: IVP, Active 2011 [facility] Drug form: INJ, ONCE, kg, Start date: 01/24/12 10:21:00, Stop date: 01/24/12 10:21:00 ketorolac 30 mg, 1 mL, IV No Longer Banda Route: IV, Active 2011 [facility] Drug form: INJ, ONCE, kg, Priority: STAT, Start date: 01/24/12 8:29:00, Stop date: 01/24/12 8:29:00 Phenergan + 12.5 mg, 0.5 IVP No Longer Banda Sodium Chloride mL, Route: IVP Central Active 2011 [facility] 0.9% IV 20 mL Central, Drug form: INJ, ONCE, kg, PRN Nausea & Vomiting, Start date: 01/24/12 8:27:00 Sodium Chloride 1,000 mL, IV No Longer Banda 0.9% (Bolus) IV Rate: 1,000 Active 2011 [facility] 1,000 mL ml/hr, Infuse over: 1 hr, Route: IV, Dosing Weight 100 kg, Total Volume: 1,000, Priority: STAT, Start date: 01/24/12 8:27:00, Duration: 1 doses or times, Stop date: 01/24/12 9:26:00, Bolus DoseBolus Dose Saline Flush 5 ml, Route: IVP No Longer Banda 0.9% IVP, Drug Active 2011 [facility] Form: INJ, kg, PRN, PRN Line Flush, [...] Fang Bactrim Assertion Drug Active MH allergy [facility] Compazine Assertion shakey Propensity Active MH to adverse [facility] reactions to drug Reglan Assertion shakey Propensity Active MH to adverse [place] reactions to drug sulfa drugs Assertion Drug Active MH allergy [facility] Tape Assertion Drug Active allergy [facility] Immunizations Immunization Date Given Site Status Last Updated Comments Source Results Order Name Results Value Reference Date Interpretation Comments Source Range CHEM PANEL Lipase Lvl 243 unit/L 73 - 393 02/19 [facility] CARDIAC Troponin-I null 0.00 - 07/10 ENZYMES 0.40 [facility] CARDIAC CK MB null 0.5 - 3.6 07/10 ENZYMES /2016 [facility] CHEM PANEL B/C Ratio 8 6 - 25 07/10 [facility] CHEM PANEL A/G Ratio 1.2 0.7 - 1.6 07/10 [facility] CHEM PANEL Globulin 3.2 g/dL 2.7 - 4.2 07/10 [facility] CHEM PANEL AGAP 11.1 meq/L 10.0 - 07/10 20.0 [facility] CHEM PANEL eGFR 77 07/10 Result Comment: [...] is not recommended in the following populations: [place] [id number] Individuals with unstable creatinine concentrations, including patients [...] Phos 53 unit/L 39 - 136 07/10 [facility] CHEM PANEL Bili Total 0.3 mg/dL 0.2 [...] Lvl 336 unit/L 73 - 393 07/10 [facility] HEMATOLOGY Lymphocytes 1.6 K/CMM 1.0 - 5.5 07/10 [facility] HEMATOLOGY Eosinophils 0.2 K/CMM 0.0 - 0.5 07/10 [facility] HEMATOLOGY Monocytes # 0.5 K/CMM 0.0 - 0.8 07/10 [facility] HEMATOLOGY Segs-Bands # 6.4 K/CMM 1.5 - 8.1 07/10 [facility] HEMATOLOGY Basophils # 0.0 K/CMM 0.0 - 0.2 07/10 [facility] HEMATOLOGY Basophils 0.5 % 0.0 - 1.0 07/10 [facility] HEMATOLOGY Monocytes 6.0 % 2.0 - 12.0 07/10 [facility] HEMATOLOGY Eosinophils 1.8 % 0.0 - 4.0 07/10 [facility] HEMATOLOGY Segs 72.9 % 45.0 - 07/10 MH 75.0 /2016 [facility] HEMATOLOGY Lymphocytes 18.8 % 20.0 - 07/10 MH 40.0 /2016 [facility] HEMATOLOGY Platelet 235 K/CMM 133 - 450 07/10 [facility] HEMATOLOGY MPV 8.1 fL 7.4 - 10.4 07/10 [facility] HEMATOLOGY MCHC 33.4 g/dL 32.0 - 07/10 MH 36.0 /2016 [facility] HEMATOLOGY RDW 13.2 % 11.5 - 07/10 MH 14.5 /2016 [facility] HEMATOLOGY Hct 41.7 % 42.0 - 07/10 MH 54.0 /2016 [facility] HEMATOLOGY MCH 30.4 pg 27.0 - 07/10 MH 31.0 [facility] HEMATOLOGY MCV 91.2 fL 80.0 - 07/10 94.0 [facility] HEMATOLOGY WBC 8.7 K/CMM 3.7 - 10.4 07/10 [facility] HEMATOLOGY Hgb 13.9 g/dL 14.0 - 07/10 18.0 [facility] HEMATOLOGY RBC 4.57 M/CMM 4.70 - 07/10 MH 6.10 /2016 [facility] URINE AND UA pH 7.0 5.0 - 8.0 07/10 STOOL [facility] URINE AND UA Glucose Negative Negative 07/10 [facility] mg/dL mg/dL /2016 [facility] URINE AND UA Protein Negative Negative 07/10 [facility] mg/dL mg/dL /2016 [facility] URINE AND UA <=1.0 0.1 - 1.0 07/10 [facility] Urobilinogen mg/dL /2016 [facility] URINE AND UA Turbidity Clear Clear 07/10 STOOL [facility] (07/09/16 8:42 PM) URINE AND UA Spec Grav 1.003 <=1.030 07/10 STOOL [facility] URINE AND UA Color Light Yellow Yellow 07/10 STOOL [facility] *NA* (07/09/16 8:42 PM) URINE AND UA Blood Small Negative 07/10 [facility] *ABN* (07/09/16 8:42 PM) URINE AND UA Bili Negative Negative 07/10 [facility] *NA* (07/09/16 8:42 PM) URINE AND UA Ketones Negative Negative 07/10 [facility] mg/dL mg/dL /2016 [facility] URINE AND UA RBC null 0 - 2 07/10 [facility]OOL [facility] URINE AND UA WBC null 0 - 5 07/10 [facility] URINE AND UA Sq Epi Few /LPF Few /LPF 07/10 [facility] URINE AND UA Leuk Est Negative Negative 07/10 STOOL [facility] (07/09/16 8:42 PM) URINE AND UA Nitrite Negative Negative 07/10 STOOL [facility] (07/09/16 8:42 PM) Abdomen 2 Abdomen 2 Study: 2 views of abdomen 07/09 - views DX views DX - [facility] History: Abdominal pain Read by: Gema Brock [...] 2.6 mg/dL 1.8 - 2.4 07/08 Lvl [facility] CHEM PANEL Lipase Lvl 248 unit/L 73 - 393 07/08 [facility] CHEM PANEL Amylase Lvl 79 unit/L 25 - 115 07/08 [facility] CHEM PANEL A/G Ratio 1.2 0.7 - 1.6 07/08 [facility] CHEM PANEL Globulin 3.5 g/dL 2.7 - 4.2 07/08 [facility] CHEM PANEL Bili Total 0.4 mg/dL 0.2 - 1.3 07/08 [facility] CHEM PANEL B/C Ratio 9 6 - 25 07/08 [facility] CHEM PANEL AGAP 8.9 meq/L 10.0 - 07/08 20.0 [facility] CHEM PANEL eGFR 95 07/08 Result Comment: [...] Lvl 78 mg/dL 70 - 99 07/08 [facility] CHEM PANEL BUN 9 mg/dL 7 - 22 07/08 [facility] CHEM PANEL CO2 30 meq/L 24 - 32 07/08 [facility] CHEM PANEL Alk Phos 54 unit/L 39 - 136 07/08 [facility] CHEM PANEL Calcium Lvl 8.9 mg/dL 8.5 - 10.5 07/08 [facility] CHEM PANEL Sodium Lvl 139 meq/L 135 - 145 07/08 [facility] CHEM PANEL Creatinine 0.96 mg/dL 0.50 - 07/08 Lvl 1.40 [facility] CHEM PANEL Albumin Lvl 4.1 g/dL 3.5 - 5.0 07/08 [facility] CHEM PANEL Total 7.6 g/dL 6.4 - 8.4 07/08 [facility] CHEM PANEL Potassium 3.9 meq/L 3.5 - 5.1 07/08 Lvl [facility] CHEM PANEL Chloride Lvl 104 meq/L 95 - 109 07/08 [facility] CHEM PANEL AST 9 unit/L 0 - 37 07/08 [facility] CHEM PANEL ALT 25 unit/L 0 - 65 07/08 [facility] HEMATOLOGY Eosinophils 0.1 K/CMM 0.0 - 0.5 07/08 [facility] HEMATOLOGY Basophils # 0.0 K/CMM 0.0 - 0.2 07/08 [facility] HEMATOLOGY Lymphocytes 1.8 K/CMM 1.0 - 5.5 07/08 [facility] HEMATOLOGY Monocytes # 0.4 K/CMM 0.0 - 0.8 07/08 [facility] HEMATOLOGY Eosinophils 1.5 % 0.0 - 4.0 07/08 [facility] HEMATOLOGY Basophils 0.4 % 0.0 - 1.0 07/08 [facility] HEMATOLOGY Segs-Bands # 4.6 K/CMM 1.5 - 8.1 07/08 [facility] HEMATOLOGY Monocytes 5.5 % 2.0 - 12.0 07/08 [facility] HEMATOLOGY Segs 66.8 % 45.0 - 07/08 MH 75.0 /2016 [facility] HEMATOLOGY Lymphocytes 25.8 % 20.0 - 07/08 MH 40.0 /2016 [facility] HEMATOLOGY MPV 8.4 fL 7.4 - 10.4 07/08 [facility] HEMATOLOGY MCH 30.0 pg 27.0 - 07/08 MH 31.0 [facility] HEMATOLOGY MCHC 32.7 g/dL 32.0 - 07/08 MH 36.0 /2016 [facility] HEMATOLOGY RDW 13.7 % 11.5 - 07/08 MH 14.5 /2016 [facility] HEMATOLOGY Platelet 277 K/CMM 133 - 450 07/08 [facility] HEMATOLOGY MCV 91.8 fL 80.0 - 07/08 94.0 [facility] HEMATOLOGY RBC 4.94 M/CMM 4.70 - 07/08 6.10 [facility] HEMATOLOGY WBC 6.9 K/CMM 3.7 - 10.4 07/08 [facility] HEMATOLOGY Hct 45.4 % 42.0 - 07/08 54.0 [facility] HEMATOLOGY Hgb 14.8 g/dL 14.0 - 07/08 18.0 [facility] URINE AND UA <=1.0 0.1 - 1.0 07/08 [facility] Urobilinogen mg/dL /2016 [facility] URINE AND UA Sq Epi None Seen 07/08 STOOL [facility] URINE AND UA Bacteria Occasional None Seen 07/08 [facility] /HPF /HPF /2016 [facility] URINE AND UA Nitrite Negative Negative 07/08 STOOL [facility] (07/07/16 6:15 PM) URINE AND UA Leuk Est Negative Negative 07/08 STOOL [facility] (07/07/16 6:15 PM) URINE AND UA Bili Negative Negative 07/08 STOOL [facility] *NA* (07/07/16 6:15 PM) URINE AND UA Blood Small Negative 07/08 STOOL [facility] *ABN* (07/07/16 6:15 PM) URINE AND UA Ketones Negative Negative 07/08 [facility] mg/dL mg/dL /2016 [facility] URINE AND UA Glucose Negative Negative 07/08 [facility] mg/dL mg/dL /2016 [facility] URINE AND UA Protein Negative Negative 07/08 [facility] mg/dL mg/dL [facility] URINE AND UA Color Colorless Yellow 07/08 [facility] *NA* (07/07/16 6:15 PM) URINE AND UA WBC null 0 - 5 07/08 [facility] URINE AND UA Turbidity Clear Clear 07/08 [facility] (07/07/16 6:15 PM) URINE AND UA pH 7.0 5.0 - 8.0 07/08 [facility] URINE AND UA Spec Grav 1.002 <=1.030 07/08 [facility] URINE AND UA <=1.0 0.1 - 1.0 05/14 [facility] Urobilinogen mg/dL [facility] URINE AND UA Color Ltyellow 05/14 [facility] URINE AND UA Spec Grav 1.006 <=1.030 05/14 [facility] URINE AND UA Glucose Negative Negative 05/14 [facility] mg/dL mg/dL [facility] URINE AND UA pH 7.0 5.0 - 8.0 05/14 [facility] URINE AND UA Turbidity Clear Clear 05/14 [facility] (05/14/14 8:48 AM) URINE AND UA Sq Epi None Seen 05/14 [facility] URINE AND UA Protein Negative Negative 05/14 [facility] mg/dL mg/dL [facility] URINE AND UA Leuk Est Negative Negative 05/14 [facility] (05/14/14 8:48 AM) URINE AND UA WBC null 0 - 5 05/14 [facility] URINE AND UA Nitrite Negative Negative 05/14 [facility] (05/14/14 8:48 AM) URINE AND UA Blood Negative Negative 05/14 [facility] (05/14/14 8:48 AM) URINE AND UA Bili Negative Negative 05/14 [facility] *NA* (05/14/14 8:48 AM) URINE AND UA Ketones Negative Negative 05/14 [facility] mg/dL mg/dL [facility] Abdomen/Pe Abdomen/Pelv I. CT SCAN of the ABDOMEN with CONTRAST 05/14 - lvis w IV is w IV /2013 - [facility] contrast contrast CT II. CT SCAN of [...] UIBC 282 ug/dl 110 - 370 05/14 [facility] ANEMIA % [place] 21 % 12 - 57 05/14 [facility] ANEMIA Iron 76 ug/dl 45 - 160 05/14 [facility] ANEMIA TIBC 358 ug/dl 228 - 428 05/14 [facility] ANEMIA Vitamin B12 510 pg/mL 254 - 1320 05/14 [facility] CHEM PANEL Lipase Lvl 170 unit/L 73 - 393 05/14 [facility] ELECTROLYT Chloride Lvl 105 meq/L 95 - 109 05/14 [facility] ELECTROLYT Sodium Lvl 141 meq/L 135 - 145 05/14 [facility] ELECTROLYT Potassium 3.7 meq/L 3.5 - 5.1 05/14 [facility] ELECTROLYT eGFR 82 05/14 1Result Comment: The [...] is not recommended in the following populations: [facility] 3m2 Individuals with unstable creatinine concentrations, including [...] AST 17 unit/L 0 - 37 05/14 [facility] ELECTROLYT ALT 25 unit/L 0 - 65 05/14 [facility] ELECTROLYT Creatinine 1.1 mg/dL 0.5 - 1.4 05/14 [facility] ELECTROLYT Glucose Lvl 85 mg/dL 70 - 99 05/14 2Interpretive Data: Adult reference range values reflect the clinical guidelines of the [place] [employer]. [facility] ELECTROLYT BUN 6 mg/dL 7 - 22 05/14 [facility] ELECTROLYT Albumin Lvl 3.6 g/dL 3.5 - [...] 8.7 meq/L 10.0 - 05/14 ES 20.0 [facility] HEMATOLOGY Segs-Bands # 2.1 K/CMM 1.5 - 8.1 05/14 [facility] HEMATOLOGY Eosinophils 8.1 % 0.0 - 4.0 05/14 [facility] HEMATOLOGY Monocytes 9.1 % 2.0 - 12.0 05/14 [facility] HEMATOLOGY Lymphocytes 38.2 % 20.0 - 05/14 40.0 [facility] HEMATOLOGY Monocytes # 0.4 K/CMM 0.0 - 0.8 05/14 [facility] HEMATOLOGY Eosinophils 0.4 K/CMM 0.0 - 0.5 05/14 # /2013 [facility] HEMATOLOGY Basophils 0.5 % 0.0 - 1.0 05/14 [facility] HEMATOLOGY Lymphocytes 1.8 K/CMM 1.0 - 5.5 05/14 # /2013 [facility] HEMATOLOGY Segs 44.1 % 45.0 - 05/14 75.0 [facility] HEMATOLOGY Sed Rate 8 mm/h 0 - 15 05/14 [facility] HEMATOLOGY Hgb 12.8 g/dL 14.0 - 05/14 18.0 [facility] HEMATOLOGY MCH 30.1 pg 27.0 - 05/14 31.0 /2013 [facility] HEMATOLOGY RBC 4.26 M/CMM 4.70 - 05/14 6.10 [facility] HEMATOLOGY Hct 38.5 % 42.0 - 05/14 MH 54.0 [facility] HEMATOLOGY RDW 13.1 % 11.5 - 05/14 MH 14.5 [facility] HEMATOLOGY Platelet 204 K/CMM 133 - 450 05/14 [facility] HEMATOLOGY MCV 90.4 fL 80.0 - 05/14 94.0 [facility] HEMATOLOGY MCHC 33.3 g/dL 32.0 - 05/14 MH 36.0 [facility] HEMATOLOGY MPV 9.1 fL 7.4 - 10.4 05/14 [facility] HEMATOLOGY WBC 4.8 K/CMM 3.7 - 10.4 05/14 [facility] IMMUNOLOGY C-REACTIVE 9.1 mg/L <=2.9 mg/L 05/14 PROTEIN [facility] URINE AND Occult Bld Negative Negative 01/04 [facility] (01/04/14 11:41 AM) CHEM PANEL Lipase Lvl 193 unit/L 73 - 393 01/04 [facility] CHEM PANEL Amylase Lvl 57 unit/L 25 - 115 01/04 [facility] CHEM PANEL eGFR 74 01/04 1Result Comment: [...] is not recommended in the following populations: [facility] 3m2 Individuals with unstable creatinine concentrations, including [...] Lvl 9.5 mg/dL 8.5 - 10.5 01/04 [facility] CHEM PANEL CO2 28 meq/L 24 - 32 01/04 [facility] CHEM PANEL Albumin Lvl 4.1 g/dL 3.5 - 5.0 01/04 [facility] CHEM PANEL Total 7.6 g/dL 6.4 - [...] values reflect the clinical guidelines of the [place] [employer]. [facility] CHEM PANEL BUN 6 mg/dL 7 - 22 01/04 [facility] CHEM PANEL Creatinine 1.2 mg/dL 0.5 - 1.4 01/04 [facility] CHEM PANEL A/G Ratio 1.2 0.7 - 1.6 01/04 [facility] CHEM PANEL Globulin 3.5 g/dL 2.0 - 4.0 01/04 [facility] CHEM PANEL B/C Ratio 5 6 - 25 01/04 [facility] CHEM PANEL AGAP 11.4 meq/L 10.0 - 01/04 20.0 [facility] HEMATOLOGY MCH 29.5 pg 27.0 - 01/04 31.0 [facility] HEMATOLOGY Hgb 14.4 g/dL 14.0 - 01/04 18.0 [facility] HEMATOLOGY Hct 43.3 % 42.0 - 01/04 54.0 /2013 [facility] HEMATOLOGY MCV 88.6 fL 80.0 - 01/04 94.0 [facility] HEMATOLOGY Platelet 231 K/CMM 133 - 450 01/04 [facility] HEMATOLOGY WBC 10.0 K/CMM 3.7 - 10.4 01/04 [facility] HEMATOLOGY RBC 4.89 M/CMM 4.70 - 01/04 MH 6.10 [facility] HEMATOLOGY MPV 8.9 fL 7.4 - 10.4 01/04 [facility] HEMATOLOGY MCHC 33.3 g/dL 32.0 - 01/04 MH 36.0 /2013 [facility] HEMATOLOGY RDW 13.5 % 11.5 - 01/04 MH 14.5 /2013 [facility] HEMATOLOGY Basophils # 0.1 K/CMM 0.0 - 0.2 01/04 /2013 [facility] HEMATOLOGY Segs 77.0 % 45.0 - 01/04 MH 75.0 /2013 [facility] HEMATOLOGY Lymphocytes 13.4 % 20.0 - 01/04 MH 40.0 /2013 [facility] HEMATOLOGY Eosinophils 1.6 % 0.0 - 4.0 01/04 /2013 [facility] HEMATOLOGY Monocytes 7.3 % 2.0 - 12.0 01/04 [facility] HEMATOLOGY Segs-Bands # 7.7 K/CMM 1.5 - 8.1 01/04 [facility] HEMATOLOGY Basophils 0.7 % 0.0 - 1.0 01/04 [facility] HEMATOLOGY Lymphocytes 1.3 K/CMM 1.0 - 5.5 01/04 MH # /2013 [facility] HEMATOLOGY Monocytes # 0.7 K/CMM 0.0 - 0.8 01/04 [facility] HEMATOLOGY Eosinophils 0.2 K/CMM 0.0 - 0.5 01/04 MH # /2013 [facility] URINE AND UA Bacteria Occasional None Seen 01/04 [facility] /HPF /HPF /2013 [facility] URINE AND UA Sq Epi Occasional Few /LPF 01/04 [facility] /LPF /2013 [facility] URINE AND UA Nitrite Negative Negative 01/04 [facility] (01/04/14 9:00 AM) URINE AND UA Bili Negative Negative 01/04 [facility] *NA* (01/04/14 9:00 AM) URINE AND UA Blood Negative Negative 01/04 [facility] (01/04/14 9:00 AM) URINE AND UA Protein Negative Negative 01/04 [facility] (01/04/14 9:00 AM) URINE AND UA Glucose Negative Negative 01/04 [facility] (01/04/14 9:00 AM) URINE AND UA 0.2 EU/dL 0.1 - 1.0 01/04 [facility] Urobilinogen [facility] URINE AND UA Ketones Negative Negative 01/04 [facility] *NA* (01/04/14 9:00 AM) URINE AND UA Color Yellow Yellow 01/04 [facility] *NA* (01/04/14 9:00 AM) URINE AND UA Turbidity Clear Clear 01/04 [facility] (01/04/14 9:00 AM) URINE AND UA Spec Grav <=1.005 <=1.030 01/04 [facility]
*NA*< [facility] br/>( 9:00 AM) URINE AND UA pH 7.5 5.0 - 8.0 01/04 [facility] URINE AND UA Leuk Est Negative Negative 01/04 [facility] (01/04/14 9:00 AM) Abdomen/Pe Abdomen/Pelv CT Abdomen [...] 218 unit/L 73 - 393 01/23 Normal [facility] CHEMISTRY AST 10 unit/L 0 - 37 01/23 Normal [facility] CHEMISTRY Calcium Lvl 8.4 mg/dL 8.5 - 10.5 01/23 LOW [facility] CHEMISTRY CO2 25 meq/L 24 - 32 01/23 Normal [facility] CHEMISTRY Total 6.8 g/dL 6.4 - 8.4 08/16 Normal MH [facility] CHEMISTRY Bili Total 0.2 mg/dL 0.2 - 1.3 01/23 Normal [facility] CHEMISTRY Albumin Lvl 3.6 g/dL 3.5 - 5.0 01/23 Normal [facility] CHEMISTRY Alk Phos 53 unit/L 39 - 136 01/23 Normal [facility] CHEMISTRY ALT 29 unit/L 0 - 65 01/23 Normal [facility] CHEMISTRY Glucose Lvl 86 mg/dL 70 - 99 01/23 Normal 1Interpretive Data: Adult reference range values reflect the clinical guidelines of the [place] [employer]. [facility] CHEMISTRY BUN 10 mg/dL 7 - 22 01/23 Normal [facility] CHEMISTRY Creatinine 1.0 mg/dL 0.5 - 1.4 01/23 Normal [facility] CHEMISTRY Potassium 3.6 meq/L 3.5 - 5.1 01/23 Normal [facility] CHEMISTRY Sodium Lvl 141 meq/L 135 - 145 01/23 Normal [facility] CHEMISTRY Chloride Lvl 108 meq/L 95 - 109 01/23 Normal [facility] CHEMISTRY AGAP 11.6 meq/L 10.0 - 01/23 Normal MH 20.0 [facility] CHEMISTRY B/C Ratio 10 6 - 25 01/23 Normal [facility] CHEMISTRY Globulin 3.2 g/dL 2.0 - 4.0 01/23 Normal [facility] CHEMISTRY A/G Ratio 1.1 0.7 - 1.6 01/23 Normal [facility] HEMATOLOGY Platelet 247 K/CMM 133 - 450 01/23 Normal [facility] HEMATOLOGY MPV 8.6 fL 7.4 - 10.4 01/23 Normal [facility] HEMATOLOGY RDW 14.9 % 11.5 - 01/23 HI MH 14.5 /2011 [facility] HEMATOLOGY MCHC 33.5 g/dL 32.0 - 01/23 Normal MH 36.0 [facility] HEMATOLOGY Hct 35.2 % 42.0 - 01/23 LOW MH 54.0 [facility] HEMATOLOGY MCV 85.8 fL 80.0 - 01/23 Normal MH 94.0 [facility] HEMATOLOGY MCH 28.7 pg 27.0 - 01/23 Normal MH 31.0 [facility] HEMATOLOGY RBC 4.10 M/CMM 4.70 - 01/23 LOW MH 6.10 [facility] HEMATOLOGY Hgb 11.8 g/dL 14.0 - 08 LOW 18.0 /2012 [facility] HEMATOLOGY WBC 4.1 K/CMM 3.7 - 10.4 / Normal /2011 [facility] HEMATOLOGY Basophils # 0.0 K/CMM 0.0 - 0.2 / Normal /2011 [facility] HEMATOLOGY Segs-Bands # 2.4 K/CMM 1.5 - 8.1 01/23 Normal /2011 [facility] HEMATOLOGY Lymphocytes 1.0 K/CMM 1.0 - 5.5 08/ Normal /2011 [facility] HEMATOLOGY Eosinophils 0.2 K/CMM 0.0 - 0.5 08/ Normal # /2011 [facility] HEMATOLOGY Monocytes # 0.4 K/CMM 0.0 - 0.8 01/23 Normal /2011 [facility] HEMATOLOGY Basophils 0.2 % 0.0 - 1.0 01/23 Normal /2011 [facility] HEMATOLOGY Segs 58.4 % 45.0 - 08 Normal 75.0 /2011 [facility] HEMATOLOGY Lymphocytes 25.2 % 20.0 - 08 Normal 40.0 [facility] HEMATOLOGY Monocytes 10.4 % 2.0 - 12.0 01/23 Normal [facility] HEMATOLOGY Eosinophils 5.8 % 0.0 - 4.0 08/ HI /2011 [facility] Vital Signs Vital Sign Value Date Comments Source Temperature Oral (F) 98.7 F 07/10/2016 [facility] Heart Rate 86 07/10/2016 [facility] Respitory Rate 15 07/10/2016 [facility] Systolic (mm Hg) 122 07/10/2016 [facility] Diastolic (mm Hg) 82 07/10/2016 [facility] Respitory Rate 18 07/10/2016 [facility] Heart Rate 87 07/10/2016 [facility] Systolic (mm Hg) 114 07/10/2016 [facility] Diastolic (mm Hg) 87 07/10/2016 [facility] Systolic (mm Hg) 134 07/10/2016 [facility] Diastolic (mm Hg) 95 07/10/2016 [facility] Heart Rate 98 07/10/2016 [facility] Respitory Rate 18 07/10/2016 [facility] Weight 90.909 07/10/2016 [facility] Temperature Oral (F) 99.0 F 07/10/2016 [facility] Respitory Rate 18 07/08/2016 [facility] Temperature Oral (F) 98.5 F 07/08/2016 [facility] Systolic (mm Hg) 134 07/08/2016 [facility] Diastolic (mm Hg) 94 07/08/2016 [facility] Heart Rate 79 07/08/2016 [facility] Systolic (mm Hg) 148 07/08/2016 [facility] Diastolic (mm Hg) 83 07/08/2016 [facility] Respitory Rate 20 07/08/2016 [facility] Heart Rate 81 07/08/2016 [facility] BMI Calculated 29.6 07/07/2016 [facility] Weight 90.909 07/07/2016 [facility] Temperature Oral (F) 98.1 F 07/07/2016 [facility] Height 175.26 cm 07/07/2016 [facility] Heart Rate 90 07/07/2016 [facility] Systolic (mm Hg) 139 07/07/2016 [facility] Diastolic (mm Hg) 90 07/07/2016 [facility] Respitory Rate 20 07/07/2016 [facility] Diastolic (mm Hg) 72 05/14/2014 [facility] Systolic (mm Hg) 105 05/14/2014 [facility] Respitory Rate 18 05/14/2014 [facility] Temperature Oral (F) 98.4 F 05/14/2014 [facility] Heart Rate 84 05/14/2014 [facility] Systolic (mm Hg) 100 05/14/2014 [facility] Diastolic (mm Hg) 63 05/14/2014 [facility] Heart Rate 75 05/14/2014 [facility] Temperature Oral (F) 97.8 F 05/14/2014 [facility] Respitory Rate 18 05/14/2014 [facility] Temperature Oral (F) 97.9 F 05/14/2014 [facility] Heart Rate 66 05/14/2014 [facility] Respitory Rate 17 05/14/2014 [facility] Systolic (mm Hg) 100 05/14/2014 [facility] Diastolic (mm Hg) 67 05/14/2014 [facility] Weight 100 05/13/2014 [facility] Height 175.26 cm 05/13/2014 [facility] BMI Calculated 32.56 05/13/2014 [facility] BMI Calculated 32.56 05/13/2014 [facility] Height 175.26 cm 05/13/2014 [facility] Weight [...] Dbisen Fang Respitory Rate 18 04/19/2014 [facility] Systolic (mm Hg) 114 01/04/2014 [facility] Respitory Rate 18 01/04/2014 [facility] Diastolic (mm Hg) 69 01/04/2014 [facility] Diastolic (mm Hg) 68 01/04/2014 [facility] Heart Rate 83 01/04/2014 [facility] Respitory Rate 18 01/04/2014 [facility] Systolic (mm Hg) 115 01/04/2014 [facility] Heart Rate 91 01/04/2014 [facility] Respitory Rate 18 01/04/2014 [facility] BMI Calculated 32.56 01/04/2014 [facility] Height 175.26 cm 01/04/2014 [facility] Weight 100 01/04/2014 [facility] Temperature Oral (F) 98.4 F 01/04/2014 [facility] Diastolic (mm Hg) 81 01/04/2014 [facility] Systolic (mm Hg) 136 01/04/2014 [facility] Heart Rate 144 01/04/2014 [facility] Weight 100.000 01/24/2012 [facility] Height 175.26 cm 01/24/2012 [facility] Encounters Location Location Encounter Encounter Reason Attending ADM DC Status Source Details Type Number For Provider Date Date Visit Emergency [id number] SAMIR 01/23 01/23 Active [facility] [place] /2011 [facility] [place] [id number] Samir Johnsone 01/04 01/04 [place] [facility] /2013 [facility] Prachi Initial [id number] 04/19 04/19 Prachi Guzmán MD visit [id number] /2013 [facility] [id number] Prachi Initial [id number] 04/19 04/19 Prachi Guzmán MD visit [id number] /2013 [facility] [id number] Prachi Sick Visit [id number] 05/12 05/12 Prachi Guzmán MD - Follow up [id number] /2013 [facility] for [id number] multiple problems [facility] Inpatient [id number] Prachi 05/13 05/14 ARON Guzmán /2013 [facility] Emergency [id number] Coy 07/07 07/08 ARON Burt /2016 [facility] Emergency [id number] Coy 07/10 07/10 ARON Burt /2016 [facility] Outpatient [id number] Non 02/19 02/19 ARON Donohue /2016 [facility] Procedures Procedure Code Date Perfomer Comments Source Appendectomy [id number] [facility] Bladder [id number] pt reports [facility] operation<sup>1</sup> bladder was blistered Cholecystectomy [id number] [facility] Appendectomy [id number] [facility] Bladder [id number] pt reports [facility] operation<sup>1</sup> bladder was blistered Cholecystectomy [id number] [facility]
--- OUTSIDE RECORDS SUMMARY | 2018-02-11 16:14 | XMS REPORT | CCD ---
:[address] [facility] Care Team Providers Name Role Phone Samir Armenta Consulting Provider Allergies, Adverse Reactions, Alerts Substance Reaction Status Compazine shakey Active Reglan shakey Active sulfa drugs Active Tape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 List Condition Effective Dates Status Abdominal pain Active Anxiety Active Depression Active Guillain-Beverly syndrome Active Nausea Active Pancreatitis Active Medications [...] values reflect the clinical guidelines of the [place] [employer].HEMATOLOGY Most recent to oldest [Reference [...]
--- OUTSIDE RECORDS SUMMARY | 2018-02-11 16:15 | XMS REPORT ---
:1970 [facility] [address] [place] [address] Dr. Dye [address] [place] [id number] Care Team Providers Name Role Phone CINDY [...] MDReport Verified Date/Time: 2017 07:15:04 Reading Location: [facility] [id number] Neuro Reading Room ESIUM 2017 06:19:00 Test Item Value Reference Range Comments MAGNESIUM (BEAKER) (test mlcw=142) 2.6 mg/dL 1.6-2.6 BASIC METABOLIC [id number] 06:19:00 Test Item Value Reference Range Comments SODIUM (BEAKER) (test 136 meq/L 136-145 tizt=176) POTASSIUM (BEAKER) (test 4.6 meq/L 3.5-5.1 ifol=508) CHLORIDE (BEAKER) (test 107 meq/L 98-107 fcay=495) CO2 (BEAKER) (test 23 meq/L 22-29 jpjg=992) BLOOD UREA NITROGEN 13 mg/dL 7-21 (BEAKER) (test tuyy=033) CREATININE (BEAKER) (test 0.81 mg/dL 0.57-1.25 vyff=568) GLUCOSE RANDOM (BEAKER) 92 mg/dL 70-105 (test wpkk=054) CALCIUM (BEAKER) (test 9.3 mg/dL 8.4-10.2 ebmy=694) EGFR (BEAKER) (test 103 mL/min/1.73 sq m ESTIMATED GFR IS NOT zapo=1813) ACCURATE CREATININE CLEARANCE IN PREDICTING GLOMERULAR FILTRATION RATE. ESTIMATED GFR IS NOT APPLICABLE FOR DIALYSIS PATIENTS. CBC W/PLT COUNT & AUTO [id number] 05:45:00 Test Item Value Reference Range Comments WHITE BLOOD CELL COUNT (BEAKER) (test uhfa=840) 6.2 K/ L 3.5-10.5 RED BLOOD CELL COUNT (BEAKER) (test lqun=441) 4.22 M/ L 4.63-6.08 HEMOGLOBIN (BEAKER) (test mtmx=669) 13.0 GM/DL 13.7-17.5 HEMATOCRIT (BEAKER) (test gcui=302) 40.2 % 40.1-51.0 MEAN CORPUSCULAR VOLUME (BEAKER) (test jhwo=746) 95.3 fL 79.0-92.2 MEAN CORPUSCULAR HEMOGLOBIN (BEAKER) (test 30.8 pg 25.7-32.2 miiy=715) MEAN CORPUSCULAR HEMOGLOBIN CONC (BEAKER) (test 32.3 GM/DL 32.3-36.5 xqje=604) RED CELL DISTRIBUTION WIDTH (BEAKER) (test 13.2 % 11.6-14.4 stdo=443) PLATELET COUNT (BEAKER) (test vnbg=155) 212 K/CU MM 150-450 MEAN PLATELET VOLUME (BEAKER) (test vfqa=798) 10.4 fL 9.4-12.4 NUCLEATED RED BLOOD CELLS (BEAKER) (test 0 /100 WBC 0-0 shhi=969) NEUTROPHILS RELATIVE PERCENT (BEAKER) (test 53 % pnek=026) LYMPHOCYTES RELATIVE PERCENT (BEAKER) (test 31 % sxoi=660) MONOCYTES RELATIVE PERCENT (BEAKER) (test 8 % ludo=972) EOSINOPHILS RELATIVE PERCENT (BEAKER) (test 7 % pudx=021) BASOPHILS RELATIVE PERCENT (BEAKER) (test 1 % iqzp=720) NEUTROPHILS ABSOLUTE COUNT (BEAKER) (test 3.28 K/ L 1.78-5.38 rjvr=413) LYMPHOCYTES ABSOLUTE COUNT (BEAKER) (test 1.94 K/ L 1.32-3.57 bogt=630) MONOCYTES ABSOLUTE COUNT (BEAKER) (test 0.49 K/ L 0.30-0.82 pgtb=802) EOSINOPHILS ABSOLUTE COUNT (BEAKER) (test 0.43 K/ L 0.04-0.54 cukd=503) BASOPHILS ABSOLUTE COUNT (BEAKER) (test 0.05 K/ L 0.01-0.08 ivkd=700) IMMATURE GRANULOCYTES-RELATIVE PERCENT (BEAKER) 0 % 0-1 (test qtow=0866) TSH/FREE T4 IF [id number] 07:06:00 Test Item Value Reference Range Comments THYROID STIMULATING HORMONE (BEAKER) (test 2.05 uIU/mL 0.35-4.94 mutx=135) [id number] 07:03:00 Test Item Value Reference Range Comments MAGNESIUM (BEAKER) (test swpn=238) 2.8 mg/dL 1.6-2.6 BASIC METABOLIC [id number] 07:03:00 Test Item Value Reference Range Comments SODIUM (BEAKER) (test 137 meq/L 136-145 hljw=235) POTASSIUM (BEAKER) (test 4.1 meq/L 3.5-5.1 vkcb=690) CHLORIDE (BEAKER) (test 103 meq/L 98-107 risd=588) CO2 (BEAKER) (test 28 meq/L 22-29 jbtv=958) BLOOD UREA NITROGEN 15 mg/dL 7-21 (BEAKER) (test cpyz=647) CREATININE (BEAKER) (test 0.97 mg/dL 0.57-1.25 ltzz=267) GLUCOSE RANDOM (BEAKER) 92 mg/dL 70-105 (test dukm=492) CALCIUM (BEAKER) (test 9.4 mg/dL 8.4-10.2 ehnp=423) EGFR (BEAKER) (test 83 mL/min/1.73 sq m ESTIMATED GFR IS NOT cqzo=9131) ACCURATE CREATININE CLEARANCE IN PREDICTING GLOMERULAR FILTRATION RATE. ESTIMATED GFR IS NOT APPLICABLE FOR DIALYSIS PATIENTS. [id number] 07:03:00 Test Item Value Reference Range Comments LIPASE (BEAKER) (test rceo=264) 96 U/L 8-78 LITHIUM [id number] 06:45:00 Test Item Value Reference Range Comments LITHIUM LEVEL (BEAKER) (test bscl=757) 0.6 mmol/L 0.8-1.2 CBC W/PLT COUNT & AUTO [id number] 06:37:00 Test Item Value Reference Range Comments WHITE BLOOD CELL COUNT (BEAKER) (test fart=917) 4.8 K/ L 3.5-10.5 RED BLOOD CELL COUNT (BEAKER) (test fvkk=638) 4.37 M/ L 4.63-6.08 HEMOGLOBIN (BEAKER) (test ccmf=028) 13.1 GM/DL 13.7-17.5 HEMATOCRIT (BEAKER) (test imhe=082) 41.9 % 40.1-51.0 MEAN CORPUSCULAR VOLUME (BEAKER) (test mzxf=061) 95.9 fL 79.0-92.2 MEAN CORPUSCULAR HEMOGLOBIN (BEAKER) (test 30.0 pg 25.7-32.2 lqiy=710) MEAN CORPUSCULAR HEMOGLOBIN CONC (BEAKER) (test 31.3 GM/DL 32.3-36.5 odbn=416) RED CELL DISTRIBUTION WIDTH (BEAKER) (test 13.2 % 11.6-14.4 xijw=348) PLATELET COUNT (BEAKER) (test qusu=358) 217 K/CU MM 150-450 MEAN PLATELET VOLUME (BEAKER) (test kiaa=106) 9.8 fL 9.4-12.4 NUCLEATED RED BLOOD CELLS (BEAKER) (test 0 /100 WBC 0-0 rctm=536) NEUTROPHILS RELATIVE PERCENT (BEAKER) (test 47 % otyi=884) LYMPHOCYTES RELATIVE PERCENT (BEAKER) (test 31 % wppu=635) MONOCYTES RELATIVE PERCENT (BEAKER) (test 11 % epmu=859) EOSINOPHILS RELATIVE PERCENT (BEAKER) (test 9 % fphs=153) BASOPHILS RELATIVE PERCENT (BEAKER) (test 1 % tqkw=092) NEUTROPHILS ABSOLUTE COUNT (BEAKER) (test 2.26 K/ L 1.78-5.38 nxpd=691) LYMPHOCYTES ABSOLUTE COUNT (BEAKER) (test 1.51 K/ L 1.32-3.57 xjxk=748) MONOCYTES ABSOLUTE COUNT (BEAKER) (test 0.55 K/ L 0.30-0.82 exjz=164) EOSINOPHILS ABSOLUTE COUNT (BEAKER) (test 0.43 K/ L 0.04-0.54 mpxo=114) BASOPHILS ABSOLUTE COUNT (BEAKER) (test 0.05 K/ L 0.01-0.08 tgzg=398) IMMATURE GRANULOCYTES-RELATIVE PERCENT (BEAKER) 0 % 0-1 (test wews=8448)
--- OUTSIDE RECORDS SUMMARY | 2018-02-11 16:15 | XMS REPORT ---
:1970 [facility] Team Providers Name Role Prachi [...] End Status Dosage Date Date Topiramate MEDISPAN 01781-39 25 MG Orally Apr 19, Active 1 tablet 55-06 twice a day 2013 (bid) Seroquel MEDISPAN 09841-33 50 mg Orally Active 1 tablet 78-10 Once a day at bedtime Lisinopril MEDISPAN 67217-16 20 MG Orally Inactive 1 tablet 68-01 Once a day Clonidine HCl MEDISPAN 85221-13 0.1 MG Orally Apr 19, Active 1 tablet 27-10 twice a day 2013 at bedtime (bid) Tramadol HCl MEDISPAN 87454-23 50 mg Orally May 19, Active 1 or 2 58-01 every 6 hrs for 2013 tablet headache Xanax MEDISPAN 12651-02 2 MG Orally Active 1/2 tablet 94-01 three times a in am and day (tid) noon, 1 tablet at bedtime Singulair MEDISPAN 21798-49 10 MG Orally Active 1 tablet 17-01 Once a day in the evening Protonix MEDISPAN 96598-71 40 mg Orally Active 1 tablet 41-81 once a day Cymbalta MEDISPAN 61353-23 90 Orally Once a Active 1 capsule 40-01 day [facility] 60214-66 250 Orally once Active 1 tablet 99-00 [...]
--- OUTSIDE RECORDS SUMMARY | 2018-02-11 16:15 | XMS REPORT ---
:1970 [facility] Team Providers Name Role Prachi [...] End Status Dosage Date Date Xanax MEDISPAN 40489-73 2 MG Orally Active 1/2 tablet 94-01 three times a in am and day (tid) noon, 1 tablet at bedtime Lamictal MEDISPAN 88704-07 250 Orally once Active 1 tablet 99-00 every night Clonidine [facility] 70344-73 0.1 MG Orally Apr 19, Active 1 tablet 27-10 twice a day 2013 at bedtime (bid) Cymbalta MEDISPAN 26287-01 90 Orally Once a Active 1 capsule 40-01 day [place] MEDISPAN 16133-86 10-325 MG Orally May 12, May 27, Active 1 tablet 80-73 every 6 hrs 2013 2013 as needed Dexilant [facility] 67185-65 30 MG Orally May 12, Active 1 capsule 66-30 Once a day 2013 Singulair MEDISPAN 60326-95 10 MG Orally Active 1 tablet 17-01 Once a day in the evening Tramadol HCl MEDISPAN 50278-86 50 mg Orally May 19, Active 1 or 2 58-01 every 6 hrs for 2014 tablet headache [facility] 7[facility]15 25 MG Orally Apr 19, Active 1 tablet 55-06 twice a day 2013 (bid) Metronidazole MEDISPAN 03640-47 500 mg Orally May 12May 22, Active 1 tablet 32-04 Three times a 2013 2013 day Protonix MEDISPAN 61540-14 40 mg Orally Inactive 1 tablet 41-81 once a day Seroquel MEDISPAN 06818-64 50 mg Orally Active 1 tablet 78-10 Once a day at bedtime Cipro MEDISPAN 67147-73 500 mg Orally May 12May 22, Active [...]
[2018-02-11] MEDS ORDERED: ONDANSETRON 4 MG/2 ML VIAL ONE (17:39)
[2018-02-11] MEDS ORDERED: NA CHLORIDE 0.9% 1,000 ML ONE (17:39)
[2018-02-11 18:13] LABS: Absolute Lymphocytes (CBC) 1.4 K/uL (0.7-4.9); Absolute Monocytes 0.4 K/uL (0.1-1.3); Eosinophils % 3.2 % (0-4.4); Hematocrit 39.6 % (39.6-49.0); Lymphocytes % 23.1 % (15.3-44.8); MCH 31.4 pg (27.0-35.0); MPV 8.8 fL (7.6-11.3); Monocytes % 7.1 % (3.3-12.3)
[2018-02-11 18:28] LABS: Urine Blood TRACE (NEG); Urine Glucose NEGATIVE (NEG); Urine Protein NEGATIVE (NEG)
[2018-02-11 18:28] LABS: ALT/SGPT 21 U/L (12-78); AST/SGOT 12 U/L (15-37); Alkaline Phosphatase 52 U/L (45-117); BUN Blood Urea Nitrogen 7 mg/dL (7-18); Bicarbonate 28 mmol/L (21-32); Bilirubin Direct < 0.1 mg/dL (0-0.2); Bilirubin Total 0.3 mg/dL (0.2-1.0); Glucose Level 95 mg/dL (74-106); Lipase 477 U/L (73-393); Potassium 3.7 mmol/L (3.5-5.1); Protein, Total 7.2 g/dL (6.4-8.2); Sodium Level 139 mmol/L (136-145)
--- NOTE | 2018-02-11 18:51 | EDPHYS ---
Physician Documentation [facility] Name: Thong Fuchs Jr Age: 47 yrs Sex: Male : 1970 Arrival Date: 02/11/2018 Time: 16:10 Bed 20 Private MD: Monroe Valdes H ED Physician Vincent Avendaño HPI: 02/11 18:51 This 47 yrs old Male presents to ER via Ambulatory with complaints of gs Abdominal Pain. 18:51 The patient presents with abdominal pain in the epigastric area. Onset: The gs symptoms/episode began/occurred yesterday. The symptoms do not radiate. Associated signs and symptoms: Pertinent negatives: vomiting. The symptoms are described as crampy. Modifying factors: The symptoms are alleviated by nothing, the symptoms are aggravated by alcohol, food. Severity of pain: At its worst the pain was moderate in the emergency department the pain is unchanged. The patient has experienced similar episodes in the past, chronically. Historical: - Allergies: 16:45 Compazine; sm4 16:45 Reglan; sm4 16:45 Sulfa (Sulfonamide Antibiotics); sm4 - Home Meds: 16:45 clonazepam 2 mg Oral tab 1 tab 2 times per day [Active]; hydrocodone-acetaminophen sm4 10-325 mg Oral tab 1 tab every 6 hours [Active]; lamotrigine 200 mg Oral tab 2 tabs once daily [Active]; lithium carbonate 600 mg Oral cap 1 cap at bedtime [Active]; meclizine 25 mg Oral TbEC 1 tab 2 times per day [Active]; omeprazole 40 mg Oral cpDR 2 times per day [Active]; quetiapine 200 mg Oral tab once daily [Active]; terbinafine HCl 250 mg Oral tab 1 tab once daily [Active]; venlafaxine 150 mg Oral cp24 once daily [Active]; - PMHx: 16:45 Anxiety; Depression; guillain barre; Hypertension; PANCREATIC CALCIFICATION; sm4 Pancreatitis; - PSHx: 16:45 Appendectomy; Cholecystectomy; rebecca foot orif; left wrist orif; sm4 - Immunization history:: Adult Immunizations up to date. - Social history:: The patient lives at home, Smoking status: Patient/guardian denies using alcohol, street drugs, IV drugs, tobacco products. - Ebola Screening: : Patient negative for fever greater than or equal to 101.5 degrees Fahrenheit, and additional compatible Ebola Virus Disease symptoms Patient denies exposure to infectious person Patient denies travel to an Ebola-affected area in the 21 days before illness onset No symptoms or risks identified at this time. ROS: 18:51 All other systems are negative. gs Exam: 18:51 Head/Face: Normocephalic, atraumatic. Eyes: Pupils equal round and reactive to light, gs extra-ocular motions intact. Lids and lashes normal. Conjunctiva and sclera are non-icteric and not injected. Cornea within normal limits. Periorbital areas with no swelling, redness, or edema. ENT: Nares patent. No nasal discharge, no septal abnormalities noted. Tympanic membranes are normal and external auditory canals are clear. Oropharynx with no redness, swelling, or masses, exudates, or evidence of obstruction, uvula midline. Mucous membranes moist. Neck: Trachea midline, no thyromegaly or masses palpated, and no cervical lymphadenopathy. Supple, full range of motion without nuchal rigidity, or vertebral point tenderness. No Meningismus. Chest/axilla: Normal chest wall appearance and motion. Nontender with no deformity. No lesions are appreciated. Cardiovascular: Regular rate and rhythm with a normal S1 and S2. No gallops, murmurs, or rubs. Normal PMI, no JVD. No pulse deficits. Respiratory: Lungs have equal breath sounds bilaterally, clear to auscultation and percussion. No rales, rhonchi or wheezes noted. No increased work of breathing, no retractions or nasal flaring. Back: No spinal tenderness. No costovertebral tenderness. Full range of motion. Skin: Warm, dry with normal turgor. Normal color with no rashes, no lesions, and no evidence of cellulitis. MS/ Extremity: Pulses equal, no cyanosis. Neurovascular intact. Full, normal range of motion. Neuro: Awake and alert, GCS 15, oriented to person, place, time, and situation. Cranial nerves II-XII grossly intact. Motor strength 5/5 in all extremities. Sensory grossly intact. Cerebellar exam normal. Normal gait. 18:51 Constitutional: The patient appears alert, awake. 18:51 Abdomen/GI: Palpation: mild abdominal tenderness, in all quadrants, rebound tenderness, is not appreciated. Vital Signs: 17:56 BP 123 / 77; Pulse 109; Resp 20; Temp 98.3; Pulse Ox 100% ; sm4 18:20 BP 118 / 81; Pulse 100; Resp 20; Pulse Ox 99% on R/A; sm4 MDM: 16:44 Patient medically screened. gs 18:51 Differential diagnosis: gastritis, non-specific abd pain, pancreatitis, chronic pain , gs chronic pancreatitis. Data reviewed: vital signs, nurses notes. Data reviewed: lab test result(s). Counseling: I had a detailed discussion with the patient and/or guardian regarding: the historical points, exam findings, and any diagnostic results supporting the discharge/admit diagnosis, the need for outpatient follow up. Response to treatment: the patient's symptoms have markedly improved after treatment, and as a result, I will discharge patient. 02/11 16:43 Order name: Basic Metabolic Panel; Complete Time: 18:49 02/11 16:43 Order name: CBC with Diff; Complete Time: 18:49 02/11 16:43 Order name: Hepatic Function; Complete Time: 18:49 02/11 16:43 Order name: Lipase; Complete Time: 18:49 02/11 18:11 Order name: Urine Dipstick--Ancillary (enter results); Complete Time: 18:49 02/11 16:43 Order name: IV Saline Lock; Complete Time: 18:04 02/11 16:43 Order name: Labs collected and sent; Complete Time: 18:04 02/11 16:43 Order name: Urine Dipstick-Ancillary (obtain specimen); Complete Time: 18:30 gs Administered Medications: 18:04 Drug: NS 0.9% 1000 ml Route: IV; Rate: 1 bolus; Site: Other; 4 18:48 Follow up: IV Status: Completed infusion; IV Intake: 1000ml 4 18:05 Drug: Zofran 4 mg Route: IVP; Site: Other; 4 18:47 Follow up: Response: No adverse reaction 4 Disposition: 02/11/18 18:50 Discharged to Home. Impression: Alcohol-induced chronic pancreatitis, Chronic pain syndrome. - Condition is Stable. - Discharge Instructions: Chronic Pain, Chronic Pancreatitis. - Medication Reconciliation Form, Thank You Letter, Antibiotic Education, Prescription Opioid Use form. - Follow up: Private Physician; When: 2 - 3 days; Reason: Re-evaluation by your physician. Signatures: Dispatcher [employer] Vincent Michel MD MD Woody Higuera RN RN sm4 Corrections: (The following items were deleted from the chart) 19:04 18:50 02/11/2018 18:50 Discharged to Home. Impression: Alcohol-induced chronic sm4 pancreatitis; Chronic pain syndrome. Condition is Stable. Forms are Medication Reconciliation Form, Thank You Letter, Antibiotic Education, Prescription Opioid Use. Follow up: Private Physician; When: 2 - 3 days; Reason: Re-evaluation by your physician. gs
--- NOTE | 2018-02-11 18:51 | ER ---
Nurse's Notes [facility] Name: Thong Fuchs Jr Age: 47 yrs Sex: Male : 1970 Arrival Date: 02/11/2018 Time: 16:10 Bed 20 Private MD: Monroe Valdes H Diagnosis: Alcohol-induced chronic pancreatitis;Chronic pain syndrome Presentation: 02/11 16:34 Presenting complaint: Patient states: left upper quad abd pain w/ vomiting and diarrhea sm4 x 1 episode. hx of chronic pancreatitis and d/c'ed from this facility for same x 1 wk ago. states s/s returned last pm. no relief w/ tramadol and phenergan. Transition of care: patient was not received from another setting of care. Onset of symptoms was February 10, 2018 at 17:00. Risk Assessment: Do you want to hurt yourself or someone else? Patient reports no desire to harm self or others. Initial Sepsis Screen: Does the patient meet any 2 criteria? No. Patient's initial sepsis screen is negative. Care prior to arrival: Medication(s) given: Phenergan, 25 mg, tramadol. Activity prior to arrival: None. 16:34 Method Of Arrival: Ambulatory [facility] 16:34 Acuity: LILO 3 4 19:03 Initial Sepsis Screen: Does the patient have a suspected source of infection? No. sm4 Patient's initial sepsis screen is negative. Historical: - Allergies: 16:45 Compazine; sm4 16:45 Reglan; sm4 16:45 Sulfa (Sulfonamide Antibiotics); sm4 - Home Meds: 16:45 clonazepam 2 mg Oral tab 1 tab 2 times per day [Active]; hydrocodone-acetaminophen sm4 10-325 mg Oral tab 1 tab every 6 hours [Active]; lamotrigine 200 mg Oral tab 2 tabs once daily [Active]; lithium carbonate 600 mg Oral cap 1 cap at bedtime [Active]; meclizine 25 mg Oral TbEC 1 tab 2 times per day [Active]; omeprazole 40 mg Oral cpDR 2 times per day [Active]; quetiapine 200 mg Oral tab once daily [Active]; terbinafine HCl 250 mg Oral tab 1 tab once daily [Active]; venlafaxine 150 mg Oral cp24 once daily [Active]; - PMHx: 16:45 Anxiety; Depression; guillain barre; Hypertension; PANCREATIC CALCIFICATION; sm4 Pancreatitis; - PSHx: 16:45 Appendectomy; Cholecystectomy; rebecca foot orif; left wrist orif; sm4 - Immunization history:: Adult Immunizations up to date. - Social history:: The patient lives at home, Smoking status: Patient/guardian denies using alcohol, street drugs, IV drugs, tobacco products. - Ebola Screening: : Patient negative for fever greater than or equal to 101.5 degrees Fahrenheit, and additional compatible Ebola Virus Disease symptoms Patient denies exposure to infectious person Patient denies travel to an Ebola-affected area in the 21 days before illness onset No symptoms or risks identified at this time. Screenin:59 Abuse screen: Denies threats or abuse. Nutritional screening: No deficits noted. sm4 Tuberculosis screening: No symptoms or risk factors identified. Fall Risk None identified. Assessment: 17:38 General: Appears uncomfortable, slender, well groomed, Behavior is calm, cooperative. sm4 Pain: Complains of pain in abdomen. Neuro: No deficits noted. Cardiovascular: No deficits noted. Respiratory: No deficits noted. GI: Bowel sounds present X 4 quads. present in right upper quadrant, left upper quadrant, right lower quadrant and left lower quadrant Abd is soft Abdomen is tender to palpation in left upper quadrant. : No deficits noted. EENT: No deficits noted. Derm: No deficits noted. Musculoskeletal: No deficits noted. Vital Signs: 17:56 BP 123 / 77; Pulse 109; Resp 20; Temp 98.3; Pulse Ox 100% ; sm4 18:20 BP 118 / 81; Pulse 100; Resp 20; Pulse Ox 99% on R/A; sm4 ED Course: 16:10 Patient arrived in ED. mr 16:11 Monroe Valdes DO is Private Physician. mr 16:27 Woody Higuera, JESSA is Primary Nurse. sm4 16:27 Vincent Avendaño MD is Attending Physician. gs 16:37 Triage completed. sm4 17:50 Inserted saline lock: 20 gauge in left EJ, using aseptic technique. Blood collected. sm4 18:04 Basic Metabolic Panel Sent. sm4 18:04 CBC with Diff Sent. sm4 18:04 Hepatic Function Sent. sm4 18:04 Lipase Sent. sm4 18:59 Arm band placed on right wrist. 4 19:00 No provider procedures requiring assistance completed. 4 19:02 Patient has correct armband on for positive identification. Bed in low position. Call [facility] light in reach. Side rails up X 1. 19:03 IV discontinued, intact, No redness/swelling at site. Pressure dressing applied. 4 Administered Medications: 18:04 Drug: NS 0.9% 1000 ml Route: IV; Rate: 1 bolus; Site: Other; 4 18:48 Follow up: IV Status: Completed infusion; IV Intake: 1000ml 4 18:05 Drug: Zofran 4 mg Route: IVP; Site: Other; 4 18:47 Follow up: Response: No adverse reaction [facility] Intake: 18:48 IV: 1000ml; Total: 1000ml. [facility] Outcome: 18:50 Discharge ordered by . 19:01 Discharged to home ambulatory. 4 19:01 Condition: good 19:01 Discharge instructions given to patient, Instructed on discharge instructions, follow up and referral plans. no drinking with medication, medication usage, Demonstrated understanding of instructions, follow-up care, medications. 19:04 Patient left the ED. 4 Signatures: Corina Leslie Gregory, MD MD Woody Higuera, RN RN 4
[2018-02-11 19:10] VITALS: TEMP 98.3
[2018-02-11 19:12] VITALS: BP 118/81; O2SAT 99
== END 2018-02-11 19:04 | disposition home or self-care (01) ==
LOC: ER 16:08
DX: K86.0 Alcohol-induced chronic pancreatitis (principal); G89.4 Chronic pain syndrome; I10 Essential (primary) hypertension; F32.9 Major depressive disorder, single episode, unspecified; Z88.2 Allergy status to sulfonamides; Z88.8 Allergy status to other drugs, medicaments and biological substances
CPT/HCPCS: 36415; 80048; 80076; 81003; 83690; 85025; 96361; 96374; 99283; J2405; J7030

== ENCOUNTER 2018-07-08 23:27 | Emergency (ER) | payer SELFPAY ==
--- OUTSIDE RECORDS SUMMARY | 2018-07-08 23:30 | XMS REPORT | Clinical Summary ---
:1970 Author Organization [facility] Address [address] [place] [address] Care Team Providers Name Role Phone Monroe Valdes Primary Care Provider Allergies No Known Allergies Medications Medication Sig Dispensed Refills Start Date End Date Status venlafaxine Take 150 mg by 0 Active (EFFEXOR-XR) 150 MG 24 mouth daily. hr capsule QUEtiapine (SEROQUEL) Take 200 mg by 0 Active 200 MG tablet mouth nightly. omeprazole (PRILOSEC) Take 40 mg by 0 Active 40 MG capsule mouth daily. lamoTRIgine (LAMICTAL) Take 400 mg by 0 Active 200 MG tablet mouth daily. clonazePAM (KLONOPIN) 2 Take 2 mg by 0 Active MG tablet mouth 2 (two) times daily as needed for Anxiety. meclizine (ANTIVERT) 25 Take 25 mg by 0 Active MG tablet mouth 3 (three) times daily as needed for Dizziness. dicyclomine (BENTYL) 20 Take 20 mg by 0 01/04/2014 Active mg tablet mouth 4 (four) times daily as needed. promethazine Take 25 mg by 0 01/24/2012 Active (PHENERGAN) 25 MG mouth 3 (three) tablet times daily as needed. lithium (LITHOBID) 300 Take 600 mg by 0 Active MG CR tablet mouth nightly. terbinafine HCl Take 250 mg by 0 Active (LAMISIL) 250 mg tablet mouth daily. HYDROcodone-acetaminoph Take 1 tablet by 0 Active en (NORCO 10-325) mouth every 6 10-325 mg per tablet (six) hours as needed for Pain.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s Problem Noted Date Dizziness 12/04/2017 Unsteady gait 12/04/2017 Anxiety 12/04/2017 Recurrent major depressive disorder, in remission 12/04/2017 History of Guillain-Canadensis syndrome 12/04/2017 Chronic pancreatitis 12/04/2017 Gait abnormality 12/04/2017 Encounters Date Type Specialty Care Team Description 12/04/2017 - Hospital Encounter General Internal Griselda Luna Anxiety; 2017 Darren Portillo MD Chronic pancreatitis, unspecified pancreatitis type (HCC); Gaby Burkett Dizziness; Anjelica Elder, Gait abnormality; History of Guillain-Canadensis syndrome; Yonatan, Recurrent major depressive disorder, in remission (HCC); MD Yvette Unsteady gait; Bipolar depression (HCC) after 07/07/2017 Family History Medical History Relation Name Comments Heart disease Father Cancer Maternal Grandfather Cancer Maternal Grandmother Relation Name Status Comments Father Maternal Grandfather Maternal Grandmother Social History Tobacco Use Types Packs/Day Years Used Date Current Every Day Smoker 0.5 Smokeless Tobacco: Never Used Alcohol Use Drinks/Week oz/Week Comments No Sex Assigned at Date Recorded Not on file Job Start Date Occupation Industry Not on file Not on file Not on file Travel History Travel Start Travel End No recent travel history available. Last Filed Vital Signs Vital Sign Reading [...] CDT Plan of Treatment Not on file Procedures Procedure Name Priority Date/Time Associated Comments Diagnosis REPORT OF PROCEDURE - 12/09/2017 1:44 ENDOSCOPY SCAN PM CDT MR BRAIN WITHOUT IV Routine 2017 5:32 Results for this CONTRAST AM CDT procedure are in the results section. CBC W/PLT COUNT & Routine 2017 4:48 Results for this AUTO DIFFERENTIAL AM CDT procedure are in the results section. MAGNESIUM Routine 2017 4:48 Results for this AM CDT procedure are in the results section. BASIC METABOLIC PANEL Routine 2017 4:48 Results for this (7) AM CDT procedure are in the results section. CBC W/PLT COUNT & Routine 2017 4:48 Results for this AUTO DIFFERENTIAL AM CDT procedure are in the results section. CBC W/PLT COUNT & Routine 12/05/2017 5:42 Results for this AUTO DIFFERENTIAL AM CDT procedure are in the results section. LIPASE Routine 12/05/2017 5:42 Results for this AM CDT procedure are in the results section. TSH/FREE T4 IF Routine 12/05/2017 5:42 Results for this INDICATED AM CDT procedure are in the results section. MAGNESIUM Routine 12/05/2017 5:42 Results for this AM CDT procedure are in the results section. BASIC METABOLIC PANEL Routine 12/05/2017 5:42 Results for this (7) AM CDT procedure are in the results section. CBC W/PLT COUNT & Routine 12/05/2017 5:42 Results for this AUTO DIFFERENTIAL AM CDT procedure are in the results section. LITHIUM LEVEL Routine 12/05/2017 5:42 Results for this AM CDT procedure are in the results section. after 07/07/2017 Results EKG-SCANNED (12/09/2017 1:44 PM CDT) Narrative Performed At MR brain without IV contrast (2017 5:32 AM CDT) Narrative Performed At FINAL REPORT [facility] MRI brain without contrast INDICATION: Lightheadedness, weakness [...] MD Report Verified Date/Time:2017 07:15:04 Reading Location: [facility] C0[facility] Neuro Reading Room Procedure Note Interface, External [...] Report Verified Date/Time: 2017 07:15:04 Reading Location: [address] Neuro Reading Room Performing Organization Address City/State/Zipcode Phone Number GE RIS CBC with platelet count + automated diff (2017 4:48 AM CDT)Only the most recent of2 resultswithin the time period is included. WBC 6.2 3.5 - 10.5 K/L [facility] RBC 4.22 (L) 4.63 - 6.08 M/L [facility] Hemoglobin 13.0 (L) 13.7 - 17.5 GM/DL [facility] Hematocrit 40.2 40.1 - 51.0 % [facility] MCV 95.3 (H) 79.0 - 92.2 fL [facility] MCH 30.8 25.7 - 32.2 pg [facility] MCHC 32.3 32.3 - 36.5 GM/DL [facility] RDW 13.2 11.6 - 14.4 % [facility] Platelets 212 150 - 450 K/CU MM [facility] MPV 10.4 9.4 - 12.4 fL [facility] nRBC 0 0 - 0 /100 WBC [facility] % Neutros 53 % [facility] % Lymphs 31 % [facility] % Monos 8 % [facility] % Eos 7 % [facility] % Baso 1 % [facility] # Neutros 3.28 1.78 - 5.38 K/L [facility] # Lymphs 1.94 1.32 - 3.57 K/L [facility] # Monos 0.49 0.30 - 0.82 K/L [facility] # Eos 0.43 0.04 - 0.54 K/L [facility] # Baso 0.05 0.01 - 0.08 K/L [facility] Immature Granulocytes-Relative 0 0 - 1 % [facility] Specimen Blood - Arm, Right Performing Organization Address City/[facility] Phone Number [address] [phone] CENTER Magnesium (2017 4:48 AM CDT)Only the most recent of2 resultswithin the time period is included. Magnesium 2.6 1.6 - 2.6 mg/dL [facility] Specimen Blood - Arm, Right Performing Organization Address City/State/Zipcode Phone Number [address] [phone] CENTER Basic metabolic panel (2017 4:48 AM CDT)Only the most recent of2 resultswithin the time period is included. Sodium 136 136 - 145 meq/L [facility] Potassium 4.6 3.5 - 5.1 meq/L [facility] Chloride 107 98 - 107 meq/L [facility] CO2 23 22 - 29 meq/L [facility] BUN 13 7 - 21 mg/dL [facility] Creatinine 0.81 0.57 - 1.25 mg/dL [facility] Glucose 92 70 - 105 mg/dL [facility] Calcium 9.3 8.4 - 10.2 mg/dL [facility] EGFR 103Comment: ESTIMATED GFR IS mL/min/1.73 sq m [facility] NOT ACCURATE CREATININE [facility] CENTER CLEARANCE IN PREDICTING GLOMERULAR FILTRATION RATE. ESTIMATED GFR IS NOT APPLICABLE FOR DIALYSIS PATIENTS. Specimen Blood - Arm, Right Performing Organization Address City/[facility]/Zipcode Phone Number [address] [phone] CENTER TSH/Free T4 If Indicated (12/05/2017 5:42 AM CDT) TSH 2.05 0.35 - 4.94 uIU/mL [facility] Specimen Blood Performing Organization Address [facility] Cent[facility]ode Phone Number [address] [phone] CENTER Lipase (12/05/2017 5:42 AM CDT) Lipase 96 (H) 8 - 78 U/L [facility] Specimen Blood Performing Organization Address City/[facility] Cent[facility]ode Phone Number [address] [phone] CENTER [place] level (12/05/2017 5:42 AM CDT) [place] Level 0.6 (L) 0.8 - 1.2 mmol/L [facility] Specimen Blood Performing Organization Address [facility] Centercode Phone Number [address] [address] [phone] CENTER after 07/07/2017 Advance Directives For more information, please contact:[address] [phone] Code Status Date Activated Date Inactivated Comments Full Code 12/04/2017 8:31 PM 2017 5:00 PM This code status was determined by: Patient
--- OUTSIDE RECORDS SUMMARY | 2018-07-08 23:33 | XMS REPORT | Continuity of Care Document ---
:1970 Author Organization Interface Problems Problem Status Onset Classification Date Comments Source Date Reported ABDOMINAL PAIN Active 02/19/20 [facility] [place] Dis[place] 07/10/19 07/13/2016 [facility] Diagnosis: 17 Generalized abdominal pain ABD PAIN, Active 05/13/20 [facility] POSSIBLE ACUTE 14 DIVERTICULITIS LOWER ABD PAIN Active 05/13/20 [place] 14 Discharge 01/05/20 01/07/2014 [facility] Diagnosis: 14 Abdominal pain NAUSEA OR Active 01/24/20 [facility] VOMITING/ABD PAIN 12 Abdominal pain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 02/21/2017 [place] Anxiety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 02/21/2017 [place] Anxiety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 02/21/2017 depression [place] Depression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 02/21/2017 [place] 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 [place] Guillain-Conklin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 02/21/2017 [place] Nausea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 02/21/2017 [place] Pancreatitis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 02/21/2017 [place] Pancreatitis,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 02/21/2017 acute [place] Abdominal pain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 01/26/2012 [facility] Anxiety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 01/26/2012 [facility] Depression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 01/26/2012 [facility] 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 Nausea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 01/26/2012 [place] Pancreatitis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 01/26/2012 [facility] Bipolar disorder,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 06/03/2014 Kaisen Fang unspecified Tension headache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 06/03/2014 Kaisen Fang GERD -Esophageal Active Diagnosis 06/03/2014 Kaisen Fang reflux Chronic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 06/03/2014 Kaisen Fang pancreatitis Allergic rhinitis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 06/03/2014 Kaisen Fang Hypertension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 06/03/2014 Kaisen Fang Diverticulitis of Active Diagnosis 06/03/2014 Kaisen Fang colon ABDMNAL PAIN Active [facility] Medications Medication Details Route Status Patient Ordering Order Source Instructions Provider Date Morphine 2 mg, Route: Inactive IVP, ONCE, 2016 [facility] Dosing Weight 90.909, kg, Priority: STAT, Start date: 07/10/16 0:15:00 DIETETIC ASSISTANT, Stop date: 07/10/16 0:15:00 DIETETIC ASSISTANT Phenergan 12.5 mg, Inactive Route: IM, 2016 [facility] ONCE, Dosing Weight 90.909, kg, Priority: STAT, Start date: 07/10/16 0:14:00 DIETETIC ASSISTANT, Stop date: 07/10/16 0:14:00 DIETETIC ASSISTANT Zofran 4 mg, Route: Inactive IVP, Drug 2016 [facility] form: INJ, ONCE, Dosing Weight 90.909, kg, Priority: STAT, Start date: 07/09/16 23:36:00 DIETETIC ASSISTANT, Stop date: 07/09/16 23:36:00 DIETETIC ASSISTANT Bentyl 20 mg, Route: Inactive IM, ONCE, 2016 [facility] Dosing Weight 90.909, kg, Start date: 07/09/16 22:50:00 DIETETIC ASSISTANT, Stop date: 07/09/16 22:50:00 DIETETIC ASSISTANT Morphine 4 mg, 1 mL, Inactive Route: IVP, 2016 [facility] Drug form: SOLN, ONCE, Dosing Weight 90.909, kg, Priority: STAT, Start date: 07/09/16 22:05:00 DIETETIC ASSISTANT, Stop date: 07/09/16 22:05:00 CSTNotes: (Same as:MORPhine Sulfate) Sodium Chloride 1,000 mL, Inactive 0.154 MEQ/ML 1,000 ml/hr, 2016 [facility] Injectable Infuse Over: 1 Solution hr, Route: IV, ONCE, Priority: STAT, Dosing Weight 90.909 kg, Start date: 07/09/16 22:04:00 DIETETIC ASSISTANT, Duration: 1 doses or times, Stop date: 07/09/16 22:04:00 DIETETIC ASSISTANT Sodium Chloride 1,000 mL, Inactive 0.154 MEQ/ML 1,000 ml/hr, 2016 [facility] Injectable Infuse Over: 1 Solution hr, Route: IV, 1,000, Drug form: INJ, ONCE, Priority: STAT, Dosing Weight 90.909 kg, Start date: 07/09/16 21:47:00 DIETETIC ASSISTANT, Duration: 1 doses or times, Stop date: 07/09/16 21:47:00 DIETETIC ASSISTANT Zofran 4 mg, 2 mL, Inactive Route: IVP, 2016 [facility] Drug form: INJ, ONCE, Dosing Weight 90.909, kg, Priority: STAT, Start date: 07/09/16 21:47:00 DIETETIC ASSISTANT, Stop date: 07/09/16 21:47:00 CSTNotes: (Same as: Zofran) MEDICATION WASTE Product Size: 4 mg Product Wasted: ___ mg Ativan 1 mg, 0.5 mL, Inactive Route: IVP, 2016 [facility] Drug form: INJ, ONCE, Dosing Weight 90.909, kg, Priority: STAT, Start date: 07/07/16 20:25:00 DIETETIC ASSISTANT, Stop date: 07/07/16 20:25:00 CSTNotes: (Same as: Ativan) Morphine 4 mg, 1 mL, Inactive Route: IVP2016 [facility] Drug form: SOLN, ONCE, Dosing Weight 90.909, kg, Priority: STAT, Start date: 07/07/16 20:22:00 DIETETIC ASSISTANT, Stop date: 07/07/16 20:22:00 CSTNotes: (Same as:MORPhine Sulfate) Ativan 1 mg, Route: Inactive IVP, Drug 2016 [facility] form: INJ, ONCE, Dosing Weight 90.909, kg, Priority: STAT, Start date: 07/07/16 18:46:00 DIETETIC ASSISTANT, Stop date: 07/07/16 18:46:00 DIETETIC ASSISTANT Morphine 4 mg, Route: Inactive IVP, ONCE, 2016 [facility] Dosing Weight 90.909, kg, Priority: STAT, Start date: 07/07/16 18:46:00 DIETETIC ASSISTANT, Stop date: 07/07/16 18:46:00 DIETETIC ASSISTANT Zofran 4 mg, 2 mL, Inactive Route: IVP, 2016 [facility] Drug form: INJ, ONCE, Dosing Weight 90.909, kg, Priority: STAT, Start date: 07/07/16 18:12:00 DIETETIC ASSISTANT, Stop date: 07/07/16 18:12:00 CSTNotes: (Same as: Zofran) MEDICATION WASTE Product Size: 4 mg Product Wasted: ___ mg Lactated Ringers 1,000 mL, Inactive 1,000 mL Rate: 1,000 2016 [facility] ml/hr, Infuse over: 1 hr, Route: IV, Dosing Weight 90.909 kg, Total Volume: 1,000, Start date: 07/07/16 18:11:00 DIETETIC ASSISTANT, Duration: 1 doses or times, Stop date: 07/07/16 19:10:00 DIETETIC ASSISTANT Saline Flush 10 mL, Route: Inactive 0.9% IVP, Drug 2016 [facility] Form: INJ, Dosing Weight 100, kg, PRN, PRN Line Flush, Start date: 07/07/16 17:10:00 DIETETIC ASSISTANT, Duration: 30 day, Stop date: 08/06/16 17:09:00 CSTNotes: (Same as: BD Posiflush) Tramadol HCl 1 or 2 tablet Orally Active 50 mg Orally Fang 05/19/ Prachi every 6 hrs 2013 [facility] for headache topiramate 25 mg, 1 tab, Inactive Route: PO, 2013 [facility] Drug form: TAB, Bedtime, Dosing Weight 100, kg, Start date: 05/14/14 21:00:00, Duration: 30 day, Stop date: 06/12/14 21:00:00Notes: (Same As: Topamax) "Do Not Crush" Lactulose 667 20 gm=30 ml, Active MG/ML Oral PO, TID, 2013 [facility] Solution constipation, # 1,000 mL, 0 Refill(s) pantoprazole 40 mg, 1 tab, Inactive Route: PO, 2013 [facility] Drug form: ECTAB, Before Dinner, Dosing Weight 100, kg, Start date: 05/14/14 16:30:00, Duration: 30 day, Stop date: 06/12/14 16:30:00Notes: Tablet should not be chewed or crushed. (Same as: Protonix) Lactulose 667 30 gm, 45 mL, Inactive MG/ML Oral Route: PO, 2013 [facility] Solution Drug Form: SYRP, Dosing Weight 100, kg, Daily, NOW, Start date: 05/14/14 12:30:00, Duration: 30 day, Stop date: 06/13/14 9:00:00Notes: (Same as:Chronulac) Clonidine 0.1 mg, 1 tab, Inactive Hydrochloride Route: PO, 2013 [facility] 0.1 MG Oral Drug form: [...] mg, 3 cap, Inactive Route: PO, 2013 [facility] Drug form: DRC, Daily, Dosing Weight 100, kg, Start date: 05/14/14 9:00:00, Duration: 30 day, Stop date: 06/12/14 9:00:00Notes: (Same as: Cymbalta) (Do Not Crush) Flagyl 500 mg, 100 No Longer mL, Route: Active 2013 [facility] IVPB, Drug form: INJ, [id number], Start date: 05/13/14 22:00:00, Duration: 30 day, Stop date: 06/12/14 14:00:00Notes: (Same as: Flagyl) Avoid alcohol. Alprazolam 2 MG 2 mg, 2 tab, No Longer Oral Tablet Route: PO, Active 2013 [facility] [Xanax] Drug form: TAB, BID, Dosing Weight 100, kg, Start date: 05/13/14 21:30:00, Duration: 30 day, Stop date: 06/12/14 21:00:00Notes: With food or milk (Same as: Xanax) Zofran 4 mg, 2 mL, No Longer Route: IVP, Active 2013 [facility] Drug form: INJ, Q6H, PRN Nausea, Start date: 05/13/14 21:01:00, Duration: 30 day, Stop date: 06/12/14 21:00:00Notes: (Same as: Zofran) Cipro 400 mg, 200 No Longer mL, Route: [facility] 2013 [facility] IVPB, Drug form: INJ, [id number], Start date: 05/13/14 21:00:00, Duration: 30 day, Stop date: 06/12/14 9:00:00Notes: Do not refrigerate Seroquel 50 mg, 2 tab, No Longer Route: PO, 2013 [facility] Drug form: TAB, Bedtime, Dosing Weight 100, kg, Start date: 05/13/14 21:00:00, Duration: 30 day, Stop date: 06/11/14 21:00:00Notes: (Same as: SEROquel) morphine Sulfate 4 mg, 2 mL, No Longer Route: IV, [facility] 2013 [facility] Drug form: INJ, Q4H, PRN Pain Score 6-10, Start date: 05/13/14 21:00:00, Duration: 30 day, Stop date: 06/12/14 20:59:00Notes: (Same as:MORPhine Sulfate) Sodium Chloride 1,000 mL, No Longer 0.45% IV 1,000 Rate: 125 2013 [facility] mL ml/hr, Infuse over: 8 hr, Route: IV, Dosing Weight 100 kg, Total Volume: 1,000, Start date: 05/13/14 21:00:00, Duration: 30 day, Stop date: 06/12/14 20:59:00 Singulair 10 mg, 1 tab, No Longer Route: PO, 2013 [facility] Drug form: TAB, Bedtime, Dosing Weight 100, kg, Start date: 05/13/14 21:00:00, Duration: 30 day, Stop date: 06/11/14 21:00:00Notes: (Same as:Singulair) Lamictal 250 mg, 2.5 No Longer tab, Route: 2013 [facility] PO, Drug form: TAB, Daily, [...] tab, No Longer Route: PO, Active 2013 [facility] Drug form: TABDIS, Q8H, Dosing Weight 100, kg, PRN as needed for nausea/vomitin g, Start date: 05/13/14 18:51:00, Stop date: 06/12/14 18:50:00Notes: (Same as: Zofran ODT) Bentyl 20 mg, 1 tab, No Longer Route: PO, Active 2013 [facility] Drug form: TAB, QID, Dosing [...] Active Enteric Coated Daily, # 30 2013 [facility] Capsule cap, 0 [Cymbalta] Refill(s) Alprazolam 2 MG 2 mg, PO, BID, Active Oral Tablet 0 Refill(s) 2013 [facility] [Xanax] pantoprazole 40 =1 Pack, PO, Active MG Granules Daily, # 30 2013 [facility] [Protonix] ea, 0 Refill(s) [place] 1 tablet as Orally Active 10-325 MG [facility] needed Orally every 2013 Fang 6 hrs Dexilant 1 capsule Orally Active 30 MG Orally [facility] Ka Once a day 2013 Metronidazole 1 tablet Orally Active 500 mg Orally [facility] Ka Three times a 2013 day Cipro 1 tablet Orally Active 500 mg Orally [facility] Ka every 12 hrs 2013 Topiramate 1 tablet Orally Active 25 MG Orally [facility] Ka twice a day 2013 [facility] (bid) Clonidine HCl 1 tablet at Orally Active 0.1 MG Orally [facility] bedtime twice a day 2013 Fang (bid) Dicyclomine 20 mg=1 tab, Active Hydrochloride 20 PO, QID, 2013 [facility] Oral Tablet abdominal [Bentyl] pain, # 30 tab, 0 Refill(s) Dicyclomine 20 mg=1 tab, Active Hydrochloride 20 PO, QID, 2013 [facility] Oral Tablet abdominal [Bentyl] pain, # 30 tab, 0 Refill(s) Ondansetron 4 MG 4 mg=1 tab, Active Disintegrating PO, Q8H, 2013 [facility] Tablet [Zofran] Nausea and Vomiting, [...] 0.5 mg, 0.5 Inactive mL, Route: 2013 [facility] IVP, Drug form: INJ, ONCE, Dosing Weight 100, kg, Priority: STAT, Start date: 01/04/14 14:00:00, Stop date: 01/04/14 14:00:00 Sodium Chloride 1,000 mL, Inactive 0.154 MEQ/ML 1,000 ml/hr, 2013 [facility] Injectable Infuse Over: 1 Solution hr, Route: IV, 1,000, Drug form: INJ, ONCE, Priority: STAT, Dosing Weight 100 kg, Start date: 01/04/14 11:44:00, Duration: 1 doses or times, Stop date: 01/04/14 11:44:00 Ondansetron 4 mg, 2 mL, Inactive Route: IVP, 2013 [facility] Drug form: INJ, ONCE, Dosing Weight 100, kg, Priority: STAT, Start date: 01/04/14 11:44:00, Stop date: 01/04/14 11:44:00Notes: (Same as: Zofran) Lorazepam 1 mg, 0.5 mL, Inactive Route: IVP, 2013 [facility] Drug form: INJ, ONCE, Dosing Weight 100, kg, Priority: STAT, Start date: 01/04/14 11:44:00, Stop date: 01/04/14 11:44:00Notes: (Same as: Ativan) Hydromorphone 0.5 mg, 0.5 Inactive mL, Route: 2013 [facility] IVP, Drug form: INJ, ONCE, Dosing Weight 100, kg, Priority: STAT, Start date: 01/04/14 11:44:00, Stop date: 01/04/14 11:44:00 Zofran 4 mg, Route: Inactive IVP, Drug 2013 [facility] form: INJ, ONCE, Dosing Weight 100, kg, Priority: STAT, Start date: 01/04/14 9:52:00, Stop date: 01/04/14 9:52:00 Phenergan 25 mg 25 mg, 1 tab, PO Active Black oral tablet PO, Q4H, PRN, 2011 [facility] 15 tab, Nausea, Substitution Allowed Zofran 4 mg, 2 mL, IVP No Longer Banda Route: IVP, Active 2011 [facility] Drug form: INJ, ONCE, kg, Start date: 01/24/12 10:21:00, Stop date: 01/24/12 10:21:00 ketorolac 30 mg, 1 mL, IV No Longer Banda Route: IV, Active 2011 [facility] Drug form: INJ, ONCE, kg, Priority: STAT, Start date: 01/24/12 8:29:00, Stop date: 01/24/12 8:29:00 Phenergan + 12.5 mg, 0.5 IVP No Longer Banda Sodium Chloride mL, Route: IVP [place] Active 2011 [facility] 0.9% IV 20 mL [place], Drug form: INJ, ONCE, kg, PRN Nausea & Vomiting, Start date: 01/24/12 8:27:00 Sodium Chloride 1,000 mL, IV No Longer Banda 0.9% (Bolus) IV Rate: 1,000 Active 2011 [facility] 1,000 mL ml/hr, Infuse over: 1 hr, Route: IV, Dosing Weight 100 kg, Total Volume: 1,000, Priority: STAT, Start date: 01/24/12 8:27:00, Duration: 1 doses or times, Stop date: 01/24/12 9:26:00, Bolus DoseBolus Dose Saline Flush 5 ml, Route: IVP No Longer Banda 0.9% IVP, Drug Active 2011 [facility] Form: INJ, kg, PRN, PRN [...] Fang Bactrim Assertion Drug Active MH allergy [facility] Compazine Assertion shakey Propensity Active MH to adverse [facility] reactions to drug Reglan Assertion shakey Propensity Active MH to adverse [place] reactions to drug sulfa drugs Assertion Drug Active MH allergy [facility] Tape Assertion Drug Active allergy [facility] Immunizations Immunization Date Given Site Status Last Updated Comments Source Results Order Name Results Value Reference Date Interpretation Comments Source Range CHEM PANEL Lipase Lvl 243 unit/L 73 - 393 02/19 [facility] CARDIAC Troponin-I null 0.00 - 07/10 ENZYMES 0.40 [facility] CARDIAC CK MB null 0.5 - 3.6 07/10 ENZYMES /2016 [facility] CHEM PANEL B/C Ratio 8 6 - 25 07/10 [facility] CHEM PANEL A/G Ratio 1.2 0.7 - 1.6 07/10 [facility] CHEM PANEL Globulin 3.2 g/dL 2.7 - 4.2 07/10 [facility] CHEM PANEL AGAP 11.1 meq/L 10.0 - 07/10 20.0 [facility] CHEM PANEL eGFR 77 07/10 Result [...] is not recommended in the following populations: [place] [id number] Individuals with unstable creatinine concentrations, including patients [...] Phos 53 unit/L 39 - 136 07/10 [facility] CHEM PANEL Bili Total 0.3 mg/dL [...] Lvl 336 unit/L 73 - 393 07/10 [facility] HEMATOLOGY Lymphocytes 1.6 K/CMM 1.0 - 5.5 07/10 [facility] HEMATOLOGY Eosinophils 0.2 K/CMM 0.0 - 0.5 07/10 [facility] HEMATOLOGY Monocytes # 0.5 K/CMM 0.0 - 0.8 07/10 [facility] HEMATOLOGY Segs-Bands # 6.4 K/CMM 1.5 - 8.1 07/10 [facility] HEMATOLOGY Basophils # 0.0 K/CMM 0.0 - 0.2 07/10 [facility] HEMATOLOGY Basophils 0.5 % 0.0 - 1.0 07/10 [facility] HEMATOLOGY Monocytes 6.0 % 2.0 - 12.0 07/10 [facility] HEMATOLOGY Eosinophils 1.8 % 0.0 - 4.0 07/10 [facility] HEMATOLOGY Segs 72.9 % 45.0 - 07/10 MH 75.0 /2016 [facility] HEMATOLOGY Lymphocytes 18.8 % 20.0 - 07/10 MH 40.0 /2016 [facility] HEMATOLOGY Platelet 235 K/CMM 133 - 450 07/10 [facility] HEMATOLOGY MPV 8.1 fL 7.4 - 10.4 07/10 [facility] HEMATOLOGY MCHC 33.4 g/dL 32.0 - 07/10 MH 36.0 /2016 [facility] HEMATOLOGY RDW 13.2 % 11.5 - 07/10 MH 14.5 /2016 [facility] HEMATOLOGY Hct 41.7 % 42.0 - 07/10 MH 54.0 /2016 [facility] HEMATOLOGY MCH 30.4 pg 27.0 - 07/10 MH 31.0 [facility] HEMATOLOGY MCV 91.2 fL 80.0 - 07/10 94.0 [facility] HEMATOLOGY WBC 8.7 K/CMM 3.7 - 10.4 07/10 [facility] HEMATOLOGY Hgb 13.9 g/dL 14.0 - 07/10 18.0 [facility] HEMATOLOGY RBC 4.57 M/CMM 4.70 - 07/10 MH 6.10 /2016 [facility] URINE AND UA pH 7.0 5.0 - 8.0 07/10 STOOL [facility] URINE AND UA Glucose Negative Negative 07/10 [facility] mg/dL mg/dL /2016 [facility] URINE AND UA Protein Negative Negative 07/10 [facility] mg/dL mg/dL /2016 [facility] URINE AND UA <=1.0 0.1 - 1.0 07/10 [facility] Urobilinogen mg/dL /2016 [facility] URINE AND UA Turbidity Clear Clear 07/10 STOOL [facility] (07/09/16 8:42 PM) URINE AND UA Spec Grav 1.003 <=1.030 07/10 STOOL [facility] URINE AND UA Color Light Yellow Yellow 07/10 STOOL [facility] *NA* (07/09/16 8:42 PM) URINE AND UA Blood Small Negative 07/10 [facility] *ABN* (07/09/16 8:42 PM) URINE AND UA Bili Negative Negative 07/10 [facility] *NA* (07/09/16 8:42 PM) URINE AND UA Ketones Negative Negative 07/10 [facility] mg/dL mg/dL /2016 [facility] URINE AND UA RBC null 0 - 2 07/10 STOOL [facility] URINE AND UA WBC null 0 - 5 07/10 [facility] URINE AND UA Sq Epi Few /LPF Few /LPF 07/10 [facility] URINE AND UA Leuk Est Negative Negative 07/10 STOOL [facility] (07/09/16 8:42 PM) URINE AND UA Nitrite Negative Negative 07/10 STOOL [facility] (07/09/16 8:42 PM) Abdomen 2 Abdomen 2 Study: 2 views of abdomen 07/09 - views DX views DX - [facility] History: Abdominal pain Read by: Gema [...] 2.6 mg/dL 1.8 - 2.4 07/08 Lvl [facility] CHEM PANEL Lipase Lvl 248 unit/L 73 - 393 07/08 [facility] CHEM PANEL Amylase Lvl 79 unit/L 25 - 115 07/08 [facility] CHEM PANEL A/G Ratio 1.2 0.7 - 1.6 07/08 [facility] CHEM PANEL Globulin 3.5 g/dL 2.7 - 4.2 07/08 [facility] CHEM PANEL Bili Total 0.4 mg/dL 0.2 - 1.3 07/08 [facility] CHEM PANEL B/C Ratio 9 6 - 25 07/08 [facility] CHEM PANEL AGAP 8.9 meq/L 10.0 - 07/08 20.0 [facility] CHEM PANEL eGFR 95 07/08 Result [...] Lvl 78 mg/dL 70 - 99 07/08 [facility] CHEM PANEL BUN 9 mg/dL 7 - 22 07/08 [facility] CHEM PANEL CO2 30 meq/L 24 - 32 07/08 [facility] CHEM PANEL Alk Phos 54 unit/L 39 - 136 07/08 [facility] CHEM PANEL Calcium Lvl 8.9 mg/dL 8.5 - 10.5 07/08 [facility] CHEM PANEL Sodium Lvl 139 meq/L 135 - 145 07/08 [place] CHEM PANEL Creatinine 0.96 mg/dL 0.50 - 07/08 Lvl 1.40 [facility] CHEM PANEL Albumin Lvl 4.1 g/dL 3.5 - 5.0 07/08 [place] CHEM PANEL Total 7.6 g/dL 6.4 - 8.4 07/08 [place] CHEM PANEL Potassium 3.9 meq/L 3.5 - 5.1 07/08 Lvl [facility] CHEM PANEL Chloride Lvl 104 meq/L 95 - 109 07/08 [facility] CHEM PANEL AST 9 unit/L 0 - 37 07/08 [facility] CHEM PANEL ALT 25 unit/L 0 - 65 07/08 [facility] HEMATOLOGY Eosinophils 0.1 K/CMM 0.0 - 0.5 07/08 [facility] HEMATOLOGY Basophils # 0.0 K/CMM 0.0 - 0.2 07/08 [facility] HEMATOLOGY Lymphocytes 1.8 K/CMM 1.0 - 5.5 07/08 [facility] HEMATOLOGY Monocytes # 0.4 K/CMM 0.0 - 0.8 07/08 [facility] HEMATOLOGY Eosinophils 1.5 % 0.0 - 4.0 07/08 [facility] HEMATOLOGY Basophils 0.4 % 0.0 - 1.0 07/08 [facility] HEMATOLOGY Segs-Bands # 4.6 K/CMM 1.5 - 8.1 07/08 [facility] HEMATOLOGY Monocytes 5.5 % 2.0 - 12.0 07/08 [facility] HEMATOLOGY Segs 66.8 % 45.0 - 07/08 MH 75.0 /2016 [facility] HEMATOLOGY Lymphocytes 25.8 % 20.0 - 07/08 MH 40.0 /2016 [facility] HEMATOLOGY MPV 8.4 fL 7.4 - 10.4 07/08 [facility] HEMATOLOGY MCH 30.0 pg 27.0 - 07/08 MH 31.0 [facility] HEMATOLOGY MCHC 32.7 g/dL 32.0 - 07/08 MH 36.0 /2016 [facility] HEMATOLOGY RDW 13.7 % 11.5 - 07/08 MH 14.5 /2016 [facility] HEMATOLOGY Platelet 277 K/CMM 133 - 450 07/08 [facility] HEMATOLOGY MCV 91.8 fL 80.0 - 07/08 94.0 [facility] HEMATOLOGY RBC 4.94 M/CMM 4.70 - 07/08 6.10 [facility] HEMATOLOGY WBC 6.9 K/CMM 3.7 - 10.4 07/08 [facility] HEMATOLOGY Hct 45.4 % 42.0 - 07/08 54.0 [facility] HEMATOLOGY Hgb 14.8 g/dL 14.0 - 07/08 18.0 [facility] URINE AND UA <=1.0 0.1 - 1.0 07/08 [facility] Urobilinogen mg/dL /2016 [facility] URINE AND UA Sq Epi None Seen 07/08 STOOL [facility] URINE AND UA Bacteria Occasional None Seen 07/08 [facility] /HPF /HPF /2016 [facility] URINE AND UA Nitrite Negative Negative 07/08 STOOL [facility] (07/07/16 6:15 PM) URINE AND UA Leuk Est Negative Negative 07/08 STOOL [facility] (07/07/16 6:15 PM) URINE AND UA Bili Negative Negative 07/08 STOOL [facility] *NA* (07/07/16 6:15 PM) URINE AND UA Blood Small Negative 07/08 STOOL [facility] *ABN* (07/07/16 6:15 PM) URINE AND UA Ketones Negative Negative 07/08 [facility] mg/dL mg/dL /2016 [facility] URINE AND UA Glucose Negative Negative 07/08 [facility] mg/dL mg/dL /2016 [facility] URINE AND UA Protein Negative Negative 07/08 [facility] mg/dL mg/dL [facility] URINE AND UA Color Colorless Yellow 07/08 [facility] *NA* (07/07/16 6:15 PM) URINE AND UA WBC null 0 - 5 07/08 [facility] URINE AND UA Turbidity Clear Clear 07/08 [facility] (07/07/16 6:15 PM) URINE AND UA pH 7.0 5.0 - 8.0 07/08 [facility] URINE AND UA Spec Grav 1.002 <=1.030 07/08 [facility] URINE AND UA <=1.0 0.1 - 1.0 05/14 [facility] Urobilinogen mg/dL [facility] URINE AND UA Color Ltyellow 05/14 [facility] URINE AND UA Spec Grav 1.006 <=1.030 05/14 [facility] URINE AND UA Glucose Negative Negative 05/14 [facility] mg/dL mg/dL [facility] URINE AND UA pH 7.0 5.0 - 8.0 05/14 [facility] URINE AND UA Turbidity Clear Clear 05/14 [facility] (05/14/14 8:48 AM) URINE AND UA Sq Epi None Seen 05/14 [facility] URINE AND UA Protein Negative Negative 05/14 [facility] mg/dL mg/dL [facility] URINE AND UA Leuk Est Negative Negative 05/14 [facility] (05/14/14 8:48 AM) URINE AND UA WBC null 0 - 5 05/14 [facility] URINE AND UA Nitrite Negative Negative 05/14 [facility] (05/14/14 8:48 AM) URINE AND UA Blood Negative Negative 05/14 [facility] (05/14/14 8:48 AM) URINE AND UA Bili Negative Negative 05/14 [facility] *NA* (05/14/14 8:48 AM) URINE AND UA Ketones Negative Negative 05/14 [facility] mg/dL mg/dL [facility] Abdomen/Pe Abdomen/Pelv I. CT SCAN of the ABDOMEN with CONTRAST 05/14 - lvis w IV is w IV /2013 - [facility] contrast contrast CT II. CT [...] UIBC 282 ug/dl 110 - 370 05/14 [facility] ANEMIA % [place] 21 % 12 - 57 05/14 [facility] ANEMIA Iron 76 ug/dl 45 - 160 05/14 [facility] ANEMIA TIBC 358 ug/dl 228 - 428 05/14 [facility] ANEMIA Vitamin B12 510 pg/mL 254 - 1320 05/14 [facility] CHEM PANEL Lipase Lvl 170 unit/L 73 - 393 05/14 [facility] ELECTROLYT Chloride Lvl 105 meq/L 95 - 109 05/14 [facility] ELECTROLYT Sodium Lvl 141 meq/L 135 - 145 05/14 [facility] ELECTROLYT Potassium 3.7 meq/L 3.5 - 5.1 05/14 [facility] ELECTROLYT eGFR 82 05/14 1Result [...] is not recommended in the following populations: [facility] 3m2 Individuals with unstable creatinine [...] AST 17 unit/L 0 - 37 05/14 [facility] ELECTROLYT ALT 25 unit/L 0 - 65 05/14 [facility] ELECTROLYT Creatinine 1.1 mg/dL 0.5 - 1.4 05/14 [facility] ELECTROLYT Glucose Lvl 85 mg/dL 70 - 99 05/14 2Interpretive Data: Adult reference range values reflect the clinical guidelines of the [place] [employer]. [facility] ELECTROLYT BUN 6 mg/dL 7 - 22 05/14 [facility] ELECTROLYT Albumin Lvl 3.6 g/dL [...] 8.7 meq/L 10.0 - 05/14 ES 20.0 [facility] HEMATOLOGY Segs-Bands # 2.1 K/CMM 1.5 - 8.1 05/14 [facility] HEMATOLOGY Eosinophils 8.1 % 0.0 - 4.0 05/14 [facility] HEMATOLOGY Monocytes 9.1 % 2.0 - 12.0 05/14 [facility] HEMATOLOGY Lymphocytes 38.2 % 20.0 - 05/14 40.0 [facility] HEMATOLOGY Monocytes # 0.4 K/CMM 0.0 - 0.8 05/14 [facility] HEMATOLOGY Eosinophils 0.4 K/CMM 0.0 - 0.5 05/14 # /2013 [facility] HEMATOLOGY Basophils 0.5 % 0.0 - 1.0 05/14 [facility] HEMATOLOGY Lymphocytes 1.8 K/CMM 1.0 - 5.5 05/14 # /2013 [facility] HEMATOLOGY Segs 44.1 % 45.0 - 05/14 75.0 [facility] HEMATOLOGY Sed Rate 8 mm/h 0 - 15 05/14 [facility] HEMATOLOGY Hgb 12.8 g/dL 14.0 - 05/14 18.0 [facility] HEMATOLOGY MCH 30.1 pg 27.0 - 05/14 31.0 /2013 [facility] HEMATOLOGY RBC 4.26 M/CMM 4.70 - 05/14 6.10 [facility] HEMATOLOGY Hct 38.5 % 42.0 - 05/14 MH 54.0 [facility] HEMATOLOGY RDW 13.1 % 11.5 - 05/14 MH 14.5 [facility] HEMATOLOGY Platelet 204 K/CMM 133 - 450 05/14 [facility] HEMATOLOGY MCV 90.4 fL 80.0 - 05/14 94.0 [facility] HEMATOLOGY MCHC 33.3 g/dL 32.0 - 05/14 MH 36.0 [facility] HEMATOLOGY MPV 9.1 fL 7.4 - 10.4 05/14 [facility] HEMATOLOGY WBC 4.8 K/CMM 3.7 - 10.4 05/14 [facility] IMMUNOLOGY C-REACTIVE 9.1 mg/L <=2.9 mg/L 05/14 PROTEIN [facility] URINE AND Occult Bld Negative Negative 01/04 [facility] Stl [facility] (01/04/14 11:41 AM) CHEM PANEL Lipase Lvl 193 unit/L 73 - 393 01/04 [facility] CHEM PANEL Amylase Lvl 57 unit/L 25 - 115 01/04 [facility] CHEM PANEL eGFR 74 01/04 [...] is not recommended in the following populations: [facility] 3m2 Individuals with unstable creatinine [...] Lvl 9.5 mg/dL 8.5 - 10.5 01/04 [facility] CHEM PANEL CO2 28 meq/L 24 - 32 01/04 [facility] CHEM PANEL Albumin Lvl 4.1 g/dL 3.5 - 5.0 01/04 [facility] CHEM PANEL Total 7.6 g/dL [...] values reflect the clinical guidelines of the [place] [employer]. [facility] CHEM PANEL BUN 6 mg/dL 7 - 22 01/04 [facility] CHEM PANEL Creatinine 1.2 mg/dL 0.5 - 1.4 01/04 [facility] CHEM PANEL A/G Ratio 1.2 0.7 - 1.6 01/04 [facility] CHEM PANEL Globulin 3.5 g/dL 2.0 - 4.0 01/04 [facility] CHEM PANEL B/C Ratio 5 6 - 25 01/04 [facility] CHEM PANEL AGAP 11.4 meq/L 10.0 - 01/04 20.0 [facility] HEMATOLOGY MCH 29.5 pg 27.0 - 01/04 31.0 [facility] HEMATOLOGY Hgb 14.4 g/dL 14.0 - 01/04 18.0 [facility] HEMATOLOGY Hct 43.3 % 42.0 - 01/04 54.0 /2013 [facility] HEMATOLOGY MCV 88.6 fL 80.0 - 01/04 94.0 [facility] HEMATOLOGY Platelet 231 K/CMM 133 - 450 01/04 [facility] HEMATOLOGY WBC 10.0 K/CMM 3.7 - 10.4 01/04 [facility] HEMATOLOGY RBC 4.89 M/CMM 4.70 - 01/04 MH 6.10 [facility] HEMATOLOGY MPV 8.9 fL 7.4 - 10.4 01/04 [facility] HEMATOLOGY MCHC 33.3 g/dL 32.0 - 01/04 MH 36.0 /2013 [facility] HEMATOLOGY RDW 13.5 % 11.5 - 01/04 MH 14.5 /2013 [facility] HEMATOLOGY Basophils # 0.1 K/CMM 0.0 - 0.2 01/04 /2013 [facility] HEMATOLOGY Segs 77.0 % 45.0 - 01/04 MH 75.0 /2013 [facility] HEMATOLOGY Lymphocytes 13.4 % 20.0 - 01/04 MH 40.0 /2013 [facility] HEMATOLOGY Eosinophils 1.6 % 0.0 - 4.0 01/04 /2013 [facility] HEMATOLOGY Monocytes 7.3 % 2.0 - 12.0 01/04 [facility] HEMATOLOGY Segs-Bands # 7.7 K/CMM 1.5 - 8.1 01/04 [facility] HEMATOLOGY Basophils 0.7 % 0.0 - 1.0 01/04 [facility] HEMATOLOGY Lymphocytes 1.3 K/CMM 1.0 - 5.5 01/04 MH # /2013 [facility] HEMATOLOGY Monocytes # 0.7 K/CMM 0.0 - 0.8 01/04 [facility] HEMATOLOGY Eosinophils 0.2 K/CMM 0.0 - 0.5 01/04 MH # /2013 [facility] URINE AND UA Bacteria Occasional None Seen 01/04 [facility] /HPF /HPF /2013 [facility] URINE AND UA Sq Epi Occasional Few /LPF 01/04 [facility] /LPF /2013 [facility] URINE AND UA Nitrite Negative Negative 01/04 [facility] (01/04/14 9:00 AM) URINE AND UA Bili Negative Negative 01/04 STOOL [facility] *NA* (01/04/14 9:00 AM) URINE AND UA Blood Negative Negative 01/04 [facility] (01/04/14 9:00 AM) URINE AND UA Protein Negative Negative 01/04 STOOL [facility] (01/04/14 9:00 AM) URINE AND UA Glucose Negative Negative 01/04 [facility] (01/04/14 9:00 AM) URINE AND UA 0.2 EU/dL 0.1 - 1.0 01/04 [facility] Urobilinogen [facility] URINE AND UA Ketones Negative Negative 01/04 STOOL [facility] *NA* (01/04/14 9:00 AM) URINE AND UA Color Yellow Yellow 01/04 STOOL [facility] *NA* (01/04/14 9:00 AM) URINE AND UA Turbidity Clear Clear 01/04 STOOL [facility] (01/04/14 9:00 AM) URINE AND UA Spec Grav <=1.005 <=1.030 01/04 [facility]
*NA*< [facility] br/>( 9:00 AM) URINE AND UA pH 7.5 5.0 - 8.0 01/04 STOOL [facility] URINE AND UA Leuk Est Negative Negative 01/04 STOOL [facility] (01/04/14 9:00 AM) Abdomen/Pe Abdomen/Pelv [...] 218 unit/L 73 - 393 01/23 Normal [facility] CHEMISTRY AST 10 unit/L 0 - 37 01/23 Normal [facility] CHEMISTRY Calcium Lvl 8.4 mg/dL 8.5 - 10.5 01/23 LOW [facility] CHEMISTRY CO2 25 meq/L 24 - 32 01/23 Normal [facility] CHEMISTRY Total 6.8 g/dL 6.4 - 8.4 08/16 Normal MH [facility] CHEMISTRY Bili Total 0.2 mg/dL 0.2 - 1.3 01/23 Normal [facility] CHEMISTRY Albumin Lvl 3.6 g/dL 3.5 - 5.0 01/23 Normal [facility] CHEMISTRY Alk Phos 53 unit/L 39 - 136 01/23 Normal [facility] CHEMISTRY ALT 29 unit/L 0 - 65 01/23 Normal [facility] CHEMISTRY Glucose Lvl 86 mg/dL 70 - 99 01/23 Normal 1Interpretive Data: Adult reference range values reflect the clinical guidelines of the [place] [employer]. [facility] CHEMISTRY BUN 10 mg/dL 7 - 22 01/23 Normal [facility] CHEMISTRY Creatinine 1.0 mg/dL 0.5 - 1.4 01/23 Normal [facility] CHEMISTRY Potassium 3.6 meq/L 3.5 - 5.1 01/23 Normal [facility] CHEMISTRY Sodium Lvl 141 meq/L 135 - 145 01/23 Normal [facility] CHEMISTRY Chloride Lvl 108 meq/L 95 - 109 01/23 Normal [facility] CHEMISTRY AGAP 11.6 meq/L 10.0 - 01/23 Normal MH 20.0 [facility] CHEMISTRY B/C Ratio 10 6 - 25 01/23 Normal [facility] CHEMISTRY Globulin 3.2 g/dL 2.0 - 4.0 01/23 Normal [facility] CHEMISTRY A/G Ratio 1.1 0.7 - 1.6 01/23 Normal [facility] HEMATOLOGY Platelet 247 K/CMM 133 - 450 01/23 Normal [facility] HEMATOLOGY MPV 8.6 fL 7.4 - 10.4 01/23 Normal [facility] HEMATOLOGY RDW 14.9 % 11.5 - 01/23 HI MH 14.5 /2011 [facility] HEMATOLOGY MCHC 33.5 g/dL 32.0 - 01/23 Normal MH 36.0 [facility] HEMATOLOGY Hct 35.2 % 42.0 - 01/23 LOW MH 54.0 [facility] HEMATOLOGY MCV 85.8 fL 80.0 - 01/23 Normal MH 94.0 [facility] HEMATOLOGY MCH 28.7 pg 27.0 - 01/23 Normal MH 31.0 [facility] HEMATOLOGY RBC 4.10 M/CMM 4.70 - 01/23 LOW MH 6.10 [facility] HEMATOLOGY Hgb 11.8 g/dL 14.0 - 08 LOW 18.0 /2012 [facility] HEMATOLOGY WBC 4.1 K/CMM 3.7 - 10.4 / Normal /2011 [facility] HEMATOLOGY Basophils # 0.0 K/CMM 0.0 - 0.2 / Normal /2011 [facility] HEMATOLOGY Segs-Bands # 2.4 K/CMM 1.5 - 8.1 01/23 Normal /2011 [facility] HEMATOLOGY Lymphocytes 1.0 K/CMM 1.0 - 5.5 08/ Normal /2011 [facility] HEMATOLOGY Eosinophils 0.2 K/CMM 0.0 - 0.5 08/ Normal # /2011 [facility] HEMATOLOGY Monocytes # 0.4 K/CMM 0.0 - 0.8 01/23 Normal /2011 [facility] HEMATOLOGY Basophils 0.2 % 0.0 - 1.0 01/23 Normal /2011 [facility] HEMATOLOGY Segs 58.4 % 45.0 - 08 Normal 75.0 /2011 [facility] HEMATOLOGY Lymphocytes 25.2 % 20.0 - 08 Normal 40.0 [facility] HEMATOLOGY Monocytes 10.4 % 2.0 - 12.0 01/23 Normal [facility] HEMATOLOGY Eosinophils 5.8 % 0.0 - 4.0 08/ HI /2011 [facility] Vital Signs Vital Sign Value Date Comments Source Temperature Oral (F) 98.7 F 07/10/2016 [facility] Heart Rate 86 07/10/2016 [facility] Respitory Rate 15 07/10/2016 [facility] Systolic (mm Hg) 122 07/10/2016 [facility] Diastolic (mm Hg) 82 07/10/2016 [facility] Respitory Rate 18 07/10/2016 [facility] Heart Rate 87 07/10/2016 [facility] Systolic (mm Hg) 114 07/10/2016 [facility] Diastolic (mm Hg) 87 07/10/2016 [facility] Systolic (mm Hg) 134 07/10/2016 [facility] Diastolic (mm Hg) 95 07/10/2016 [facility] Heart Rate 98 07/10/2016 [facility] Respitory Rate 18 07/10/2016 [facility] Weight 90.909 07/10/2016 [facility] Temperature Oral (F) 99.0 F 07/10/2016 [facility] Respitory Rate 18 07/08/2016 [facility] Temperature Oral (F) 98.5 F 07/08/2016 [facility] Systolic (mm Hg) 134 07/08/2016 [facility] Diastolic (mm Hg) 94 07/08/2016 [facility] Heart Rate 79 07/08/2016 [facility] Systolic (mm Hg) 148 07/08/2016 [facility] Diastolic (mm Hg) 83 07/08/2016 [facility] Respitory Rate 20 07/08/2016 [facility] Heart Rate 81 07/08/2016 [facility] BMI Calculated 29.6 07/07/2016 [facility] Weight 90.909 07/07/2016 [facility] Temperature Oral (F) 98.1 F 07/07/2016 [facility] Height 175.26 cm 07/07/2016 [facility] Heart Rate 90 07/07/2016 [facility] Systolic (mm Hg) 139 07/07/2016 [facility] Diastolic (mm Hg) 90 07/07/2016 [facility] Respitory Rate 20 07/07/2016 [facility] Diastolic (mm Hg) 72 05/14/2014 [facility] Systolic (mm Hg) 105 05/14/2014 [facility] Respitory Rate 18 05/14/2014 [facility] Temperature Oral (F) 98.4 F 05/14/2014 [facility] Heart Rate 84 05/14/2014 [facility] Systolic (mm Hg) 100 05/14/2014 [facility] Diastolic (mm Hg) 63 05/14/2014 [facility] Heart Rate 75 05/14/2014 [facility] Temperature Oral (F) 97.8 F 05/14/2014 [facility] Respitory Rate 18 05/14/2014 [facility] Temperature Oral (F) 97.9 F 05/14/2014 [facility] Heart Rate 66 05/14/2014 [facility] Respitory Rate 17 05/14/2014 [facility] Systolic (mm Hg) 100 05/14/2014 [facility] Diastolic (mm Hg) 67 05/14/2014 [facility] Weight 100 05/13/2014 [facility] Height 175.26 cm 05/13/2014 [facility] BMI Calculated 32.56 05/13/2014 [facility] BMI Calculated 32.56 05/13/2014 [facility] Height 175.26 cm 05/13/2014 [facility] Weight [...] Dbisen Fang Respitory Rate 18 04/19/2014 [facility] Systolic (mm Hg) 114 01/04/2014 [facility] Respitory Rate 18 01/04/2014 [facility] Diastolic (mm Hg) 69 01/04/2014 [facility] Diastolic (mm Hg) 68 01/04/2014 [facility] Heart Rate 83 01/04/2014 [facility] Respitory Rate 18 01/04/2014 [facility] Systolic (mm Hg) 115 01/04/2014 [facility] Heart Rate 91 01/04/2014 [facility] Respitory Rate 18 01/04/2014 [facility] BMI Calculated 32.56 01/04/2014 [facility] Height 175.26 cm 01/04/2014 [facility] Weight 100 01/04/2014 [facility] Temperature Oral (F) 98.4 F 01/04/2014 [facility] Diastolic (mm Hg) 81 01/04/2014 [facility] Systolic (mm Hg) 136 01/04/2014 [facility] Heart Rate 144 01/04/2014 [facility] Weight 100.000 01/24/2012 [facility] Height 175.26 cm 01/24/2012 [facility] Encounters Location Location Encounter Encounter Reason Attending ADM DC Status Source Details Type Number For Provider Date Date Visit Emergency [id number] SAMIR 01/23 01/23 Active [facility] [place] /2011 [facility] EC [id number] Samir Johnsone 01/04 01/04 [place] [facility] /[address] [facility] Prachi Initial [id number] 04/19 04/19 Prachi Guzmán MD visit [id number] /2013 [facility] [id number] Prachi Initial [id number] 04/19 04/19 Prachi Guzmán MD visit [id number] /2013 [facility] [id number] Prachi Sick Visit [id number] 05/12 05/12 Prachi Guzmán MD - Follow up [id number] /2013 [facility] for [id number] multiple problems [facility] Inpatient [id number] Prachi 05/13 05/14 ARON Guzmán /2013 [facility] [id number] Coy 07/07 07/08 ARON Burt /2016 [facility] Emergency [id number] Coy 07/10 07/10 ARON Burt /2016 [facility] Outpatient [id number] Non 02/19 02/19 ARON Donohue /2016 [facility] Procedures Procedure Code Date Perfomer Comments Source Appendectomy [id number] [facility] Bladder [id number] pt reports [facility] operation<sup>1</sup> bladder was blistered Cholecystectomy [id number] [facility] Appendectomy [id number] [facility] Bladder [id number] pt reports [facility] operation<sup>1</sup> bladder was blistered Cholecystectomy [id number] [facility]
--- OUTSIDE RECORDS SUMMARY | 2018-07-08 23:33 | XMS REPORT | CCD ---
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
--- OUTSIDE RECORDS SUMMARY | 2018-07-08 23:34 | XMS REPORT ---
:1970 Author Organization [facility] Address [address] [place] [address] Dr. Dye [address] [place] [id number] Care Team Providers Name Role Phone CINDY [...] MDReport Verified Date/Time: 2017 07:15:04 Reading Location: [facility] [id number] Neuro Reading Room ESIUM 2017 06:19:00 Test Item Value Reference Range Comments MAGNESIUM (BEAKER) (test bhix=506) 2.6 mg/dL 1.6-2.6 BASIC METABOLIC [id number] 06:19:00 Test Item Value Reference Range Comments SODIUM (BEAKER) (test 136 meq/L 136-145 bqup=965) POTASSIUM (BEAKER) (test 4.6 meq/L 3.5-5.1 dgwb=903) CHLORIDE (BEAKER) (test 107 meq/L 98-107 nntt=378) CO2 (BEAKER) (test 23 meq/L 22-29 nyxn=080) BLOOD UREA NITROGEN 13 mg/dL 7-21 (BEAKER) (test lnhi=754) CREATININE (BEAKER) (test 0.81 mg/dL 0.57-1.25 ymth=471) GLUCOSE RANDOM (BEAKER) 92 mg/dL 70-105 (test exlz=772) CALCIUM (BEAKER) (test 9.3 mg/dL 8.4-10.2 wjoa=662) EGFR (BEAKER) (test 103 mL/min/1.73 sq m ESTIMATED GFR IS NOT ezqy=1007) ACCURATE CREATININE CLEARANCE IN PREDICTING GLOMERULAR FILTRATION RATE. ESTIMATED GFR IS NOT APPLICABLE FOR DIALYSIS PATIENTS. CBC W/PLT COUNT & AUTO [id number] 05:45:00 Test Item Value Reference Range Comments WHITE BLOOD CELL COUNT (BEAKER) (test rnew=790) 6.2 K/ L 3.5-10.5 RED BLOOD CELL COUNT (BEAKER) (test cyuh=410) 4.22 M/ L 4.63-6.08 HEMOGLOBIN (BEAKER) (test cwkl=896) 13.0 GM/DL 13.7-17.5 HEMATOCRIT (BEAKER) (test xlxi=348) 40.2 % 40.1-51.0 MEAN CORPUSCULAR VOLUME (BEAKER) (test ausf=140) 95.3 fL 79.0-92.2 MEAN CORPUSCULAR HEMOGLOBIN (BEAKER) (test 30.8 pg 25.7-32.2 qdbo=112) MEAN CORPUSCULAR HEMOGLOBIN CONC (BEAKER) (test 32.3 GM/DL 32.3-36.5 rapj=519) RED CELL DISTRIBUTION WIDTH (BEAKER) (test 13.2 % 11.6-14.4 zcnk=975) PLATELET COUNT (BEAKER) (test bkyf=136) 212 K/CU MM 150-450 MEAN PLATELET VOLUME (BEAKER) (test jivv=588) 10.4 fL 9.4-12.4 NUCLEATED RED BLOOD CELLS (BEAKER) (test 0 /100 WBC 0-0 akoj=298) NEUTROPHILS RELATIVE PERCENT (BEAKER) (test 53 % krwe=869) LYMPHOCYTES RELATIVE PERCENT (BEAKER) (test 31 % dnqr=510) MONOCYTES RELATIVE PERCENT (BEAKER) (test 8 % blhm=627) EOSINOPHILS RELATIVE PERCENT (BEAKER) (test 7 % qoex=178) BASOPHILS RELATIVE PERCENT (BEAKER) (test 1 % kdmx=884) NEUTROPHILS ABSOLUTE COUNT (BEAKER) (test 3.28 K/ L 1.78-5.38 kzfj=554) LYMPHOCYTES ABSOLUTE COUNT (BEAKER) (test 1.94 K/ L 1.32-3.57 esmy=438) MONOCYTES ABSOLUTE COUNT (BEAKER) (test 0.49 K/ L 0.30-0.82 hmwl=335) EOSINOPHILS ABSOLUTE COUNT (BEAKER) (test 0.43 K/ L 0.04-0.54 oflh=606) BASOPHILS ABSOLUTE COUNT (BEAKER) (test 0.05 K/ L 0.01-0.08 vmme=426) IMMATURE GRANULOCYTES-RELATIVE PERCENT (BEAKER) 0 % 0-1 (test oovh=0372) TSH/FREE T4 IF [id number] 07:06:00 Test Item Value Reference Range Comments THYROID STIMULATING HORMONE (BEAKER) (test 2.05 uIU/mL 0.35-4.94 wjea=899) [id number] 07:03:00 Test Item Value Reference Range Comments MAGNESIUM (BEAKER) (test cito=240) 2.8 mg/dL 1.6-2.6 BASIC METABOLIC [id number] 07:03:00 Test Item Value Reference Range Comments SODIUM (BEAKER) (test 137 meq/L 136-145 ylpl=501) POTASSIUM (BEAKER) (test 4.1 meq/L 3.5-5.1 bcso=756) CHLORIDE (BEAKER) (test 103 meq/L 98-107 yvwh=429) CO2 (BEAKER) (test 28 meq/L 22-29 qmpb=130) BLOOD UREA NITROGEN 15 mg/dL 7-21 (BEAKER) (test qpos=867) CREATININE (BEAKER) (test 0.97 mg/dL 0.57-1.25 tkrt=110) GLUCOSE RANDOM (BEAKER) 92 mg/dL 70-105 (test fbqd=083) CALCIUM (BEAKER) (test 9.4 mg/dL 8.4-10.2 xczk=843) EGFR (BEAKER) (test 83 mL/min/1.73 sq m ESTIMATED GFR IS NOT fqkg=3754) ACCURATE CREATININE CLEARANCE IN PREDICTING GLOMERULAR FILTRATION RATE. ESTIMATED GFR IS NOT APPLICABLE FOR DIALYSIS PATIENTS. [id number] 07:03:00 Test Item Value Reference Range Comments LIPASE (BEAKER) (test nozy=858) 96 U/L 8-78 LITHIUM [id number] 06:45:00 Test Item Value Reference Range Comments LITHIUM LEVEL (BEAKER) (test grdo=309) 0.6 mmol/L 0.8-1.2 CBC W/PLT COUNT & AUTO [id number] 06:37:00 Test Item Value Reference Range Comments WHITE BLOOD CELL COUNT (BEAKER) (test frov=891) 4.8 K/ L 3.5-10.5 RED BLOOD CELL COUNT (BEAKER) (test ravy=031) 4.37 M/ L 4.63-6.08 HEMOGLOBIN (BEAKER) (test ezwd=029) 13.1 GM/DL 13.7-17.5 HEMATOCRIT (BEAKER) (test qiyh=209) 41.9 % 40.1-51.0 MEAN CORPUSCULAR VOLUME (BEAKER) (test dblx=716) 95.9 fL 79.0-92.2 MEAN CORPUSCULAR HEMOGLOBIN (BEAKER) (test 30.0 pg 25.7-32.2 dmou=891) MEAN CORPUSCULAR HEMOGLOBIN CONC (BEAKER) (test 31.3 GM/DL 32.3-36.5 aczo=217) RED CELL DISTRIBUTION WIDTH (BEAKER) (test 13.2 % 11.6-14.4 axde=983) PLATELET COUNT (BEAKER) (test vsee=727) 217 K/CU MM 150-450 MEAN PLATELET VOLUME (BEAKER) (test bqhv=932) 9.8 fL 9.4-12.4 NUCLEATED RED BLOOD CELLS (BEAKER) (test 0 /100 WBC 0-0 wjdy=172) NEUTROPHILS RELATIVE PERCENT (BEAKER) (test 47 % mved=625) LYMPHOCYTES RELATIVE PERCENT (BEAKER) (test 31 % svlm=890) MONOCYTES RELATIVE PERCENT (BEAKER) (test 11 % uibc=173) EOSINOPHILS RELATIVE PERCENT (BEAKER) (test 9 % ypmh=826) BASOPHILS RELATIVE PERCENT (BEAKER) (test 1 % thtg=171) NEUTROPHILS ABSOLUTE COUNT (BEAKER) (test 2.26 K/ L 1.78-5.38 kfka=512) LYMPHOCYTES ABSOLUTE COUNT (BEAKER) (test 1.51 K/ L 1.32-3.57 fgmt=913) MONOCYTES ABSOLUTE COUNT (BEAKER) (test 0.55 K/ L 0.30-0.82 smee=392) EOSINOPHILS ABSOLUTE COUNT (BEAKER) (test 0.43 K/ L 0.04-0.54 qijm=312) BASOPHILS ABSOLUTE COUNT (BEAKER) (test 0.05 K/ L 0.01-0.08 srib=932) IMMATURE GRANULOCYTES-RELATIVE PERCENT (BEAKER) 0 % 0-1 (test ndva=9311)
--- OUTSIDE RECORDS SUMMARY | 2018-07-08 23:34 | XMS REPORT ---
:1970 [facility] Providers Name Role [...] End Status Dosage Date Date Xanax MEDISPAN 48668-20 2 MG Orally Active 1/2 tablet 94-01 three times a in am and day (tid) noon, 1 tablet at bedtime Lamictal MEDISPAN 92970-00 250 Orally once Active 1 tablet 99-00 every night Clonidine HCl [facility] 38378-35 0.1 MG Orally Apr 19, Active 1 tablet 27-10 twice a day 2013 at bedtime (bid) Cymbalta MEDISPAN 88151-62 90 Orally Once a Active 1 capsule 40-01 day [place] MEDISPAN 22193-44 10-325 MG Orally May 12, May 27, Active 1 tablet 80-73 every 6 hrs 2013 2013 as needed Dexilant [facility] 56379-58 30 MG Orally May 12, Active 1 capsule 66-30 Once a day 2013 Singulair MEDISPAN 28484-65 10 MG Orally Active 1 tablet 17-01 Once a day in the evening Tramadol HCl MEDISPAN 21151-87 50 mg Orally May 19, Active 1 or 2 58-01 every 6 hrs for 2014 tablet headache [facility] 71175-92 25 MG Orally Apr 19, Active 1 tablet 55-06 twice a day 2013 (bid) Metronidazole MEDISPAN 08348-06 500 mg Orally May 12May 22, Active 1 tablet 32-04 Three times a 2013 2013 day Protonix MEDISPAN 79401-01 40 mg Orally Inactive 1 tablet 41-81 once a day Seroquel MEDISPAN 01337-90 50 mg Orally Active 1 tablet 78-10 Once a day at bedtime Cipro MEDISPAN 46093-04 500 mg Orally May 12May 22, Active [...]
--- OUTSIDE RECORDS SUMMARY | 2018-07-08 23:34 | XMS REPORT ---
:1970 [facility] Providers Name Role Prachi Elder [...] End Status Dosage Date Date Topiramate MEDISPAN 60688-59 25 MG Orally Apr 19, Active 1 tablet 55-06 twice a day 2013 (bid) Seroquel MEDISPAN 15266-84 50 mg Orally Active 1 tablet 78-10 Once a day at bedtime Lisinopril MEDISPAN 20624-11 20 MG Orally Inactive 1 tablet 68-01 Once a day Clonidine HCl MEDISPAN 40062-30 0.1 MG Orally Apr 19, Active 1 tablet 27-10 twice a day 2013 at bedtime (bid) Tramadol HCl MEDISPAN 03170-54 50 mg Orally May 19, Active 1 or 2 58-01 every 6 hrs for 2013 tablet headache Xanax MEDISPAN 03348-83 2 MG Orally Active 1/2 tablet 94-01 three times a in am and day (tid) noon, 1 tablet at bedtime Singulair MEDISPAN 52431-82 10 MG Orally Active 1 tablet 17-01 Once a day in the evening Protonix MEDISPAN 91473-88 40 mg Orally Active 1 tablet 41-81 once a day Cymbalta MEDISPAN 55865-86 90 Orally Once a Active 1 capsule 40-01 [facility] 91062-73 250 Orally once Active 1 tablet 99-00 [...]
[2018-07-08] MEDS ORDERED: NA CHLORIDE 0.9% 1,000 ML ONE (23:47)
[2018-07-09] MEDS ORDERED: ONDANSETRON 4 MG/2 ML VIAL ONE (00:13)
[2018-07-09] MEDS ORDERED: MORPHINE 4 MG/ML SYR ONE ×2 (00:13→01:28)
[2018-07-09 00:21] LABS: Absolute Lymphocytes (CBC) 2.6 K/uL (0.7-4.9); Absolute Monocytes 0.7 K/uL (0.1-1.3); Absolute Neutrophil 3.4 K/uL (1.8-8.0); Basophils % 0.8 % (0-1.3); Eosinophils % 4.9 % (0-4.4); Hematocrit 40.7 % (39.6-49.0); Lymphocytes % 37.1 % (15.3-44.8); MPV 8.8 fL (7.6-11.3); Monocytes % 9.2 % (3.3-12.3); RBC Red Blood Cell Count 4.39 M/uL (4.33-5.43)
[2018-07-09 00:31] LABS: ALT/SGPT 20 U/L (12-78); AST/SGOT 17 U/L (15-37); Albumin 3.7 g/dL (3.4-5.0); Alkaline Phosphatase 52 U/L (45-117); BUN Blood Urea Nitrogen 7 mg/dL (7-18); Bicarbonate 25 mmol/L (21-32); Bilirubin Direct < 0.1 mg/dL (0-0.2); Bilirubin Total 0.1 mg/dL (0.2-1.0); Glucose Level 97 mg/dL (74-106); Lipase 601 U/L (73-393); Potassium 3.7 mmol/L (3.5-5.1); Protein, Total 6.8 g/dL (6.4-8.2); Sodium Level 142 mmol/L (136-145)
[2018-07-09] MEDS ORDERED: PROMETHAZINE 25 MG/ML VIAL ONE ×2 (01:10→02:01)
[2018-07-09] MEDS ORDERED: NA CHLORIDE 0.9% 1,000 ML ONE (01:48)
--- NOTE | 2018-07-09 02:16 | EDPHYS ---
Physician Documentation [facility] Name: Thong Fuchs Jr Age: 47 yrs Sex: Male : 1970 Arrival Date: 07/08/2018 Time: 23:31 Bed 20 Private MD: ED Physician Angel Beltrán HPI: 07/09 00:16 This 47 yrs old Male presents to ER via Ambulatory with complaints of pm1 Abdominal Pain. 00:16 The patient presents with abdominal pain in the left upper quadrant. Onset: The pm1 symptoms/episode began/occurred yesterday. The symptoms radiate to left back. Associated signs and symptoms: Pertinent negatives: nausea, vomiting, and diarrhea, chest pain, dysuria, fever, shortness of breath. The symptoms are described as sharp. Modifying factors: The symptoms are alleviated by nothing, the symptoms are aggravated by food. Severity of pain: in the emergency department the pain is actually worse. The patient has experienced similar episodes in the past, chronically. Historical: - Allergies: 07/08 23:41 Compazine; jd3 23:41 Reglan; "causes anxiety"; jd3 23:41 Sulfa (Sulfonamide Antibiotics); jd3 23:41 Bactrim; jd3 - Home Meds: 23:41 lithium carbonate 600 mg Oral cap 1 cap at bedtime [Active]; venlafaxine 150 mg Oral jd3 cp24 once daily [Active]; clonazepam 2 mg Oral tab 1 tab 2 times per day [Active]; Lamictal Oral [Active]; - PMHx: 23:41 Depression; Hypertension; guillain barre; Anxiety; PANCREATIC CALCIFICATION; jd3 Pancreatitis; - PSHx: 23:41 Appendectomy; rebecca foot; left wrist; Cholecystectomy; jd3 - Immunization history:: Adult Immunizations up to date. - Social history:: Smoking status: Patient uses tobacco products, denies chronic smoking, but will smoke occasionally. - Ebola Screening: : Patient negative for fever greater than or equal to 101.5 degrees Fahrenheit, and additional compatible Ebola Virus Disease symptoms. ROS: 07/09 00:16 Constitutional: Negative for fever, chills, and weight loss, Eyes: Negative for injury, pm1 pain, redness, and discharge, ENT: Negative for injury, pain, and discharge, Neck: Negative for injury, pain, and swelling, Cardiovascular: Negative for chest pain, palpitations, and edema, Respiratory: Negative for shortness of breath, cough, wheezing, and pleuritic chest pain. Back: Negative for injury and pain, : Negative for injury, bleeding, discharge, and swelling, MS/Extremity: Negative for injury and deformity, Skin: Negative for injury, rash, and discoloration, Neuro: Negative for headache, weakness, numbness, tingling, and seizure. Abdomen/GI: Positive for abdominal pain, Negative for nausea, vomiting, and diarrhea. Exam: 00:16 Constitutional: This is a well developed, well nourished patient who is awake, alert, pm1 and in no acute distress. Head/Face: Normocephalic, atraumatic. Eyes: Pupils equal round and reactive to light, extra-ocular motions intact. Lids and lashes normal. Conjunctiva and sclera are non-icteric and not injected. Cornea within normal limits. Periorbital areas with no swelling, redness, or edema. ENT: Nares patent. No nasal discharge, no septal abnormalities noted. Tympanic membranes are normal and external auditory canals are clear. Oropharynx with no redness, swelling, or masses, exudates, or evidence of obstruction, uvula midline. Mucous membranes moist. Neck: Trachea midline, no thyromegaly or masses palpated, and no cervical lymphadenopathy. Supple, full range of motion without nuchal rigidity, or vertebral point tenderness. No Meningismus. Chest/axilla: Normal chest wall appearance and motion. Nontender with no deformity. No lesions are appreciated. Cardiovascular: Regular rate and rhythm with a normal S1 and S2. No gallops, murmurs, or rubs. Normal PMI, no JVD. No pulse deficits. Respiratory: Lungs have equal breath sounds bilaterally, clear to auscultation and percussion. No rales, rhonchi or wheezes noted. No increased work of breathing, no retractions or nasal flaring. 00:16 Back: No spinal tenderness. No costovertebral tenderness. Full range of motion. Skin: Warm, dry with normal turgor. Normal color with no rashes, no lesions, and no evidence of cellulitis. MS/ Extremity: Pulses equal, no cyanosis. Neurovascular intact. Full, normal range of motion. 00:16 Abdomen/GI: Inspection: abdomen appears normal, Bowel sounds: normal, Palpation: soft, mild abdominal tenderness, in the left upper quadrant, mass, is not appreciated, rebound tenderness, is not appreciated. 00:16 Neuro: Orientation: is normal, Motor: is normal, Sensation: is normal, no obvious gross deficits, Gait: is steady, at a normal pace, without difficulty. Vital Signs: 07/08 23:41 BP 142 / 74; Pulse 86; Resp 17 S; Temp 98.5(O); Pulse Ox 100% on R/A; Weight 81.65 kg jd3 (R); Height 5 ft. 11 in. (180.34 cm) (R); Pain 7/10; 07/09 00:39 BP 121 / 65; Pulse 81; Resp 18; Pulse Ox 99% ; ea 01:22 BP 115 / 65; Pulse 75; Resp 18; Pulse Ox 100% on R/A; ea 02:08 BP 115 / 75; Pulse 70; Resp 18; Pulse Ox 97% on R/A; ea 07/08 23:41 Body Mass Index 25.10 (81.65 kg, 180.34 cm) jd3 MDM: 07/08 23:33 Patient medically screened. pm1 07/09 00:24 Data reviewed: vital signs. Data interpreted: Pulse oximetry: on room air is 100 %. pm1 Interpretation: normal. 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 07/08 23:34 Order name: Basic Metabolic Panel; Complete Time: 00:38 pm1 07/08 23:34 Order name: CBC with Diff; Complete Time: 00:24 pm1 07/08 23:34 Order name: Creatinine for Radiology; Complete Time: 00:28 pm07/08 23:34 Order name: Hepatic Function; Complete Time: 00:38 pm1 07/08 23:34 Order name: Lipase; Complete Time: 00:38 pm07/08 23:43 Order name: ETOH Level; Complete Time: 00:38 pm07/08 23:34 Order name: IV Saline Lock; Complete Time: 00:17 pm1 07/08 23:34 Order name: Labs collected and sent; Complete Time: 00:17 pm1 Administered Medications: 00:00 Drug: NS 0.9% 1000 ml Route: IV; Rate: 1000 ml; Site: right forearm; ea 01:00 Follow up: Response: No adverse reaction; IV Status: Completed infusion; IV Intake: ea 1000ml 00:01 Drug: Zofran 4 mg Route: IVP; Site: right forearm; ea 00:30 Follow up: Response: No adverse reaction; Nausea is decreased ea 00:03 Drug: morphine 4 mg Route: IVP; Site: right forearm; ea 00:30 Follow up: Response: No adverse reaction; Pain is decreased ea 01:03 Drug: Phenergan 12.5 mg Route: IVP; Site: left forearm; ea 01:50 Follow up: Response: No adverse reaction; Marked relief of symptoms ea 01:20 Drug: morphine 4 mg Route: IVP; Site: left forearm; ea 01:50 Follow up: Response: No adverse reaction; Pain is decreased ea 01:40 Drug: NS 0.9% 1000 ml Route: IV; Rate: 1000 ml; Site: left forearm; ea 02:20 Follow up: Response: No adverse reaction; IV Status: Completed infusion; IV Intake: ea 1000ml 01:58 Drug: Phenergan 12.5 mg Route: IVP; Site: left forearm; ea 02:20 Follow up: Response: No adverse reaction; Marked relief of symptoms; Nausea is decreasedea Disposition: 03:53 Co-signature as Attending Physician, Angel Beltrán MD. rn Disposition: 07/09/18 02:16 Discharged to Home. Impression: Alcohol-induced chronic pancreatitis. - Condition is Stable. - Discharge Instructions: Chronic Pancreatitis. - Prescriptions for Tylenol- Codeine #3 300-30 mg Oral Tablet - take 2 tablets by ORAL route every 6 hours As needed; 20 tablet. promethazine 25 mg Oral Tablet - take 1 tablet by ORAL route every 6 hours As needed; 20 tablet. - Medication Reconciliation Form, Thank You Letter, Antibiotic Education, Prescription Opioid Use, Work release form form. - Follow up: Emergency Department; When: As needed; Reason: Worsening of condition. Follow up: Private Physician; When: 2 - 3 days; Reason: Recheck today's complaints, Continuance of care, Re-evaluation by your physician. - Problem is new. - Symptoms have improved. Signatures: Dispatcher [employer] EDMS Angel Beltrán MD MD rn Marinas, Patrick, TARA ELECTRICAL INTERN pm1 Jolene Alcaraz RN Jm Sanders ea, RN RN jd3 Corrections: (The following items were deleted from the chart) 02:39 02:16 07/09/2018 02:16 Discharged to Home. Impression: Alcohol-induced chronic ea pancreatitis. Condition is Stable. Discharge Instructions: Chronic Pancreatitis. Prescriptions for promethazine 25 mg Oral Tablet - take 1 tablet by ORAL route every 6 hours As needed; 20 tablet, Tylenol-Codeine #3 300-30 mg Oral Tablet - take 2 tablets by ORAL route every 6 hours As needed; 20 tablet. and Forms are Medication Reconciliation Form, Thank You Letter, Antibiotic Education, Prescription Opioid Use. Follow up: Emergency Department; When: As needed; Reason: Worsening of condition. Follow up: Private Physician; When: 2 - 3 days; Reason: Recheck today's complaints, Continuance of care, Re-evaluation by your physician. Problem is new. Symptoms have improved. pm1
--- NOTE | 2018-07-09 02:16 | ER ---
Nurse's Notes [facility] Name: Thong Fuchs Jr Age: 47 yrs Sex: Male : 1970 Arrival Date: 07/08/2018 Time: 23:31 Bed 20 Private MD: Diagnosis: Alcohol-induced chronic pancreatitis Presentation: 07/08 23:36 Presenting complaint: Patient states: "I think I am having pancreatitis. This is the jd3 same pain as when I have had it in the past.". Transition of care: patient was not received from another setting of care. Onset of symptoms was July 08, 2018. Risk Assessment: Do you want to hurt yourself or someone else? Patient reports no desire to harm self or others. Initial Sepsis Screen: Does the patient meet any 2 criteria? No. Patient's initial sepsis screen is negative. Does the patient have a suspected source of infection? No. Patient's initial sepsis screen is negative. Care prior to arrival: None. 23:36 Method Of Arrival: Ambulatory jd3 23:36 Acuity: LILO 3 jd3 Historical: - Allergies: 23:41 Compazine; jd3 23:41 Reglan; "causes anxiety"; jd3 23:41 Sulfa (Sulfonamide Antibiotics); jd3 23:41 Bactrim; jd3 - Home Meds: 23:41 lithium carbonate 600 mg Oral cap 1 cap at bedtime [Active]; venlafaxine 150 mg Oral jd3 cp24 once daily [Active]; clonazepam 2 mg Oral tab 1 tab 2 times per day [Active]; Lamictal Oral [Active]; - PMHx: 23:41 Depression; Hypertension; guillain barre; Anxiety; PANCREATIC CALCIFICATION; jd3 Pancreatitis; - PSHx: 23:41 Appendectomy; rebecca foot; left wrist; Cholecystectomy; jd3 - Immunization history:: Adult Immunizations up to date. - Social history:: Smoking status: Patient uses tobacco products, denies chronic smoking, but will smoke occasionally. - Ebola Screening: : Patient negative for fever greater than or equal to 101.5 degrees Fahrenheit, and additional compatible Ebola Virus Disease symptoms. Screenin/30 00:17 Abuse screen: Denies threats or abuse. Nutritional screening: No deficits noted. ea Tuberculosis screening: No symptoms or risk factors identified. Fall Risk None identified. Assessment: 07/08 23:40 General: Appears uncomfortable, Behavior is calm, cooperative, appropriate for age. ea Pain: Complains of pain in right upper quadrant and left upper quadrant. Neuro: Level of Consciousness is awake, alert, obeys commands, Oriented to person, place, time, situation. Cardiovascular: Patient's skin is warm and dry. Respiratory: Airway is patent Respiratory effort is even, unlabored, Respiratory pattern is regular, symmetrical. GI: Bowel sounds present X 4 quads. Abdomen is tender to palpation in right upper quadrant and left upper quadrant. Derm: Skin is pink, warm \\T\\ dry. Musculoskeletal: Circulation, motion, and sensation intact. 07/09 00:12 Reassessment: Patient and/or family updated on plan of care and expected duration. Pain ea level reassessed. Patient is alert, oriented x 3, equal unlabored respirations, skin warm/dry/pink. Pt reports pain has decreased. 01:05 Reassessment: Patient and/or family updated on plan of care and expected duration. Pain ea level reassessed. Pt complaining of nausea, provider notified, medication order obtained, medication administered, pt tolerated well. 01:21 Reassessment: Patient and/or family updated on plan of care and expected duration. Pain ea level reassessed. Provider at bedside updating pt on plan of care, pt complaining of pain returning, VO obtained for morphine 4 mg IVP, medication administered, pt tolerated well. 02:00 Reassessment: Patient and/or family updated on plan of care and expected duration. Pain ea level reassessed. Pt complaining of nausea, provider notified, medication order obtained, medication administered, pt tolerated well. 02:32 Reassessment: Patient and/or family updated on plan of care and expected duration. Pain ea level reassessed. Patient is alert, oriented x 3, equal unlabored respirations, skin warm/dry/pink. Discharge instructions given to patient, verbalized the understanding of instruction. Patient states feeling better. Patient states symptoms have improved. 02:33 Reassessment: Pt symptoms improved. Pt discharge to the [facility], awaiting on nephew for ea transportation. Vital Signs: 07/08 23:41 BP 142 / 74; Pulse 86; Resp 17 S; Temp 98.5(O); Pulse Ox 100% on R/A; Weight 81.65 kg jd3 (R); Height 5 ft. 11 in. (180.34 cm) (R); Pain 7/10; 07/09 00:39 BP 121 / 65; Pulse 81; Resp 18; Pulse Ox 99% ; ea 01:22 BP 115 / 65; Pulse 75; Resp 18; Pulse Ox 100% on R/A; ea 02:08 BP 115 / 75; Pulse 70; Resp 18; Pulse Ox 97% on R/A; ea 07/08 23:41 Body Mass Index 25.10 (81.65 kg, 180.34 cm) jd3 ED Course: 07/08 23:31 Patient arrived in ED. ds1 23:33 Oliver Jeong NP is PHCP. pm1 23:33 Angel Beltrán MD is Attending Physician. pm1 23:36 Jolene Alcaraz RN is Primary Nurse. ea 23:37 Triage completed. jd3 23:40 Patient has correct armband on for positive identification. Placed in gown. Bed in low ea position. Call light in reach. Side rails up X 1. 23:42 Arm band placed on. jd3 23:55 Inserted saline lock: 20 gauge in right forearm, using aseptic technique. Blood ea collected. 07/09 00:37 Missed attempt(s): Bleeding controlled, band aid applied, catheter tip intact. ds4 00:47 Inserted saline lock: 20 gauge in left wrist, using aseptic technique. Blood collected. ds4 01:00 IV discontinued, intact, bleeding controlled, No redness/swelling at site. Pressure ds4 dressing applied, Right forearm D/C. 02:33 No provider procedures requiring assistance completed. IV discontinued, intact, ea bleeding controlled, No redness/swelling at site. Pressure dressing applied, IV discontinued from left wrist. Administered Medications: 00:00 Drug: NS 0.9% 1000 ml Route: IV; Rate: 1000 ml; Site: right forearm; ea 01:00 Follow up: Response: No adverse reaction; IV Status: Completed infusion; IV Intake: ea 1000ml 00:01 Drug: Zofran 4 mg Route: IVP; Site: right forearm; ea 00:30 Follow up: Response: No adverse reaction; Nausea is decreased ea 00:03 Drug: morphine 4 mg Route: IVP; Site: right forearm; ea 00:30 Follow up: Response: No adverse reaction; Pain is decreased ea 01:03 Drug: Phenergan 12.5 mg Route: IVP; Site: left forearm; ea 01:50 Follow up: Response: No adverse reaction; Marked relief of symptoms ea 01:20 Drug: morphine 4 mg Route: IVP; Site: left forearm; ea 01:50 Follow up: Response: No adverse reaction; Pain is decreased ea 01:40 Drug: NS 0.9% 1000 ml Route: IV; Rate: 1000 ml; Site: left forearm; ea 02:20 Follow up: Response: No adverse reaction; IV Status: Completed infusion; IV Intake: ea 1000ml 01:58 Drug: Phenergan 12.5 mg Route: IVP; Site: left forearm; ea 02:20 Follow up: Response: No adverse reaction; Marked relief of symptoms; Nausea is decreasedea Intake: 01:00 IV: 1000ml; Total: 1000ml. ea 02:20 IV: 1000ml; Total: 2000ml. ea Outcome: 02:16 Discharge ordered by MD. pm1 02:34 Discharged to [facility] awaiting on nephew for transportation ea 02:34 Condition: improved 02:34 Discharge instructions given to patient, Instructed on discharge instructions, follow up and referral plans. medication usage, Demonstrated understanding of instructions, follow-up care, medications, Prescriptions given X 2. 02:39 Patient left the ED. ea Signatures: Roma Sanchez ds1 Kevin Hollis ds4 Oliver Jeong NP DYE PENETRANT TESTING TECHNICIAN pm1 Jolene Alcaraz RN RN ea Davies, Jonathon, RN RN jd3
[2018-07-09 02:50] VITALS: TEMP 98.5
[2018-07-09 02:54] VITALS: BP 115/75; O2SAT 97
== END 2018-07-09 02:39 | disposition home or self-care (01) ==
LOC: ER 23:27
DX: K86.0 Alcohol-induced chronic pancreatitis (principal); F32.9 Major depressive disorder, single episode, unspecified; I10 Essential (primary) hypertension; G61.0 Guillain-Barre syndrome; Z88.1 Allergy status to other antibiotic agents; Z88.2 Allergy status to sulfonamides; Z88.8 Allergy status to other drugs, medicaments and biological substances
CPT/HCPCS: 36415; 80048; 80076; 80320; 83690; 85025; 99284; J2405; J2550; J7030

== ENCOUNTER 2018-07-29 00:21 | Emergency (ER) | payer SELFPAY ==
--- OUTSIDE RECORDS SUMMARY | 2018-07-29 00:24 | XMS REPORT | Clinical Summary ---
:1970 Author Organization [facility] Address [address] [place] [address] Care Team Providers Name Role Phone [place] [...] depressive disorder, in remission 12/04/2017 History of Guillain-Brookfield syndrome 12/04/2017 Chronic pancreatitis 12/04/2017 Gait abnormality 12/04/2017 Encounters Date Type Specialty Care Team Description 12/04/2017 - Hospital Encounter General Internal Griselda Luna Anxiety; 2017 Darren Portillo MD Chronic pancreatitis, unspecified pancreatitis type (HCC); Gaby Burkett Dizziness; Anjelica Elder, Gait abnormality; History of Guillain-Brookfield syndrome; Yonatan, Recurrent major depressive disorder, in remission (HCC); MD Yvette Unsteady gait; Bipolar depression (HCC) after 07/28/2017 Family History Medical History Relation Name Comments [...] procedure are in the results section. after 07/28/2017 Results EKG-SCANNED (12/09/2017 1:44 PM CDT) Narrative Performed At MR brain without IV contrast (2017 5:32 AM CDT) Narrative Performed At FINAL REPORT [facility] [facility] MRI brain without contrast INDICATION: Lightheadedness, [...] MD Report Verified Date/Time:2017 07:15:04 Reading Location: [facility] [employer] [facility] Neuro Reading Room Procedure Note Interface, External [...] Report Verified Date/Time: 2017 07:15:04 Reading Location: [address] Neuro Reading Room Performing Organization Address City/State/Zipcode Phone Number GE RIS CBC with platelet count + automated diff (2017 4:48 AM CDT)Only the most recent of2 resultswithin the time period is included. WBC 6.2 3.5 - 10.5 K/L [facility] RBC 4.22 (L) 4.63 - 6.08 M/L [facility] Hemoglobin 13.0 (L) 13.7 - 17.5 GM/DL [facility] Hematocrit 40.2 40.1 - 51.0 % [facility] MCV 95.3 (H) 79.0 - 92.2 fL [facility] MCH 30.8 25.7 - 32.2 pg [facility] MCHC 32.3 32.3 - 36.5 GM/DL [facility] RDW 13.2 11.6 - 14.4 % [facility] Platelets 212 150 - 450 K/CU MM [facility] MPV 10.4 9.4 - 12.4 fL [facility] nRBC 0 0 - 0 /100 WBC [facility] % Neutros 53 % [facility] % Lymphs 31 % [facility] % Monos 8 % [facility] % Eos 7 % [facility] % Baso 1 % [facility] # Neutros 3.28 1.78 - 5.38 K/L [facility] # Lymphs 1.94 1.32 - 3.57 K/L [facility] # Monos 0.49 0.30 - 0.82 K/L [facility] # Eos 0.43 0.04 - 0.54 K/L [facility] # Baso 0.05 0.01 - 0.08 K/L [facility] Immature Granulocytes-Relative 0 0 - 1 % [facility] Specimen Blood - Arm, Right Performing Organization Address City/[facility] Phone Number [address] [phone] CENTER Magnesium (2017 4:48 AM CDT)Only the most recent of2 resultswithin the time period is included. Magnesium 2.6 1.6 - 2.6 mg/dL [facility] Specimen Blood - Arm, Right Performing Organization Address City/State/Zipcode Phone Number [address] [phone] CENTER Basic metabolic panel (2017 4:48 AM CDT)Only the most recent of2 resultswithin the time period is included. Sodium 136 136 - 145 meq/L [facility] Potassium 4.6 3.5 - 5.1 meq/L [facility] Chloride 107 98 - 107 meq/L [facility] CO2 23 22 - 29 meq/L [facility] BUN 13 7 - 21 mg/dL [facility] Creatinine 0.81 0.57 - 1.25 mg/dL [facility] Glucose 92 70 - 105 mg/dL [facility] Calcium 9.3 8.4 - 10.2 mg/dL [facility] EGFR 103Comment: ESTIMATED GFR IS mL/min/1.73 sq m [facility] NOT ACCURATE [facility] IN PREDICTING GLOMERULAR FILTRATION RATE. ESTIMATED GFR IS NOT APPLICABLE FOR DIALYSIS PATIENTS. Specimen Blood - Arm, Right Performing Organization Address City/[facility]/Zipcode Phone Number [address] [phone] [place] TSH/Free T4 If Indicated (12/05/2017 5:42 AM CDT) TSH 2.05 0.35 - 4.94 uIU/mL [facility] Specimen Blood Performing Organization Address [facility]code Phone Number [address] [phone] C[place] Lipase (12/05/2017 5:42 AM CDT) Lipase 96 (H) 8 - 78 U/L [facility] Specimen Blood Performing Organization Address City/[facility] Phone Number [address] [address] [phone] CENTER [place] level (12/05/2017 5:42 AM CDT) [place] Level 0.6 (L) 0.8 - 1.2 mmol/L [facility] Specimen Blood Performing Organization Address [facility] Phone Number [address] [phone] C[place] after 07/28/2017 Advance Directives For more information, please contact:[address] [phone] Code Status Date Activated Date Inactivated Comments Full Code 12/04/2017 8:31 PM 2017 5:00 PM This code status was determined by: Patient
--- OUTSIDE RECORDS SUMMARY | 2018-07-29 00:28 | XMS REPORT | Continuity of Care Document ---
:1970 Author Organization Interface Problems Problem Status Onset Classification Date Comments Source Date Reported ABDOMINAL PAIN Active 02/19/20 [facility] [place] Dis[place] 07/10/19 07/13/2016 [facility] Diagnosis: 17 Generalized abdominal pain ABD PAIN, Active 05/13/20 [facility] POSSIBLE ACUTE 14 DIVERTICULITIS LOWER ABD PAIN Active 05/13/20 [place] 14 Discharge 01/05/20 01/07/2014 [facility] Diagnosis: 14 Abdominal pain NAUSEA OR Active 01/24/20 [facility] VOMITING/ABD PAIN 12 Abdominal pain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 02/21/2017 [place] Anxiety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 02/21/2017 [place] Anxiety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 02/21/2017 depression [place] Depression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 02/21/2017 [place] [place]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 02/21/2017 syndrome [place] [place]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 02/21/2017 [place] Nausea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 02/21/2017 [place] Pancreatitis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 02/21/2017 [place] Pancreatitis,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 02/21/2017 acute [place] Abdominal pain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 01/26/2012 [facility] Anxiety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 01/26/2012 [facility] Depression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 01/26/2012 [facility] [place]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 01/26/2012 [facility] syndrome Nausea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 01/26/2012 [place] Pancreatitis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 01/26/2012 [facility] Bipolar disorder,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 06/03/2014 Kaisen Fang unspecified Tension headache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 06/03/2014 Kaisen Fang GERD -Esophageal Active Diagnosis 06/03/2014 Kaisen Fang reflux Chronic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 06/03/2014 Kaisen Fang pancreatitis Allergic rhinitis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 06/03/2014 Kaisen Fang Hypertension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 06/03/2014 Kaisen Fang Diverticulitis of Active Diagnosis 06/03/2014 Kaisen Fang colon ABDMNAL PAIN Active [facility] SITE Medications Medication Details Route Status Patient Ordering Order Source Instructions Provider Date Morphine 2 mg, Route: Inactive IVP, ONCE, 2016 [facility] Dosing Weight 90.909, kg, Priority: STAT, Start date: 07/10/16 0:15:00 [employer]ANDY DIPPER, Stop date: 07/10/16 0:15:00 [facility] CAND[facility] DIPPER Phenergan 12.5 mg, Inactive Route: IM, 2016 [facility] ONCE, Dosing Weight 90.909, kg, Priority: STAT, Start date: 07/10/16 0:14:00 [employer] C[employer] DIPPER, Stop date: 07/10/16 0:14:00 [facility] C[employer] DIPPER Zofran 4 mg, Route: Inactive IVP, Drug 2016 [facility] form: INJ, ONCE, Dosing Weight 90.909, kg, Priority: STAT, Start date: 07/09/16 23:36:00 [employer] CANDY DIPPER, Stop date: 07/09/16 23:36:00 HAND CANDY DIPPER Bentyl 20 mg, Route: Inactive IM, ONCE, 2016 [facility] Dosing Weight 90.909, kg, Start date: 07/09/16 22:50:00 HAND CANDY DIPPER, Stop date: 07/09/16 22:50:00 HAND CANDY DIPPER Morphine 4 mg, 1 mL, Inactive Route: IVP, 2016 [facility] Drug form: SOLN, ONCE, Dosing Weight 90.909, kg, Priority: STAT, Start date: 07/09/16 22:05:00 [employer] CANDY DIPPER, Stop date: 07/09/16 22:05:00 CSTNotes: (Same as:MORPhine Sulfate) Sodium Chloride 1,000 mL, Inactive 0.154 MEQ/ML 1,000 ml/hr, 2016 [facility] Injectable Infuse Over: 1 Solution hr, Route: IV, ONCE, Priority: STAT, Dosing Weight 90.909 kg, Start date: 07/09/16 22:04:00 HAND CANDY DIPPER, Duration: 1 doses or times, Stop date: 07/09/16 22:04:00 [employer] CANDY DIPPER Sodium Chloride 1,000 mL, Inactive 0.154 MEQ/ML 1,000 ml/hr, 2016 [facility] Injectable Infuse Over: 1 Solution hr, Route: IV, 1,000, Drug form: INJ, ONCE, Priority: STAT, Dosing Weight 90.909 kg, Start date: 07/09/16 21:47:00 HAND CANDY DIPPER, Duration: 1 doses or times, Stop date: 07/09/16 21:47:00 [facility] CANDY DIPPER Zofran 4 mg, 2 mL, Inactive Route: IVP, 2016 [facility] Drug form: INJ, ONCE, Dosing Weight 90.909, kg, Priority: STAT, Start date: 07/09/16 21:47:00 [employer] CANDY DIPPER, Stop date: 07/09/16 21:47:00 CSTNotes: (Same as: Zofran) MEDICATION WASTE Product Size: 4 mg Product Wasted: ___ mg Ativan 1 mg, 0.5 mL, Inactive Route: IVP, 2016 [facility] Drug form: INJ, ONCE, Dosing Weight 90.909, kg, Priority: STAT, Start date: 07/07/16 20:25:00 [employer] CANDY DIPPER, Stop date: 07/07/16 20:25:00 CSTNotes: (Same as: Ativan) Morphine 4 mg, 1 mL, Inactive Route: IVP2016 [facility] Drug form: SOLN, ONCE, Dosing Weight 90.909, kg, Priority: STAT, Start date: 07/07/16 20:22:00 HAND CANDY DIPPER, Stop date: 07/07/16 20:22:00 CSTNotes: (Same as:MORPhine Sulfate) Ativan 1 mg, Route: Inactive IVP, Drug 2016 [facility] form: INJ, ONCE, Dosing Weight 90.909, kg, Priority: STAT, Start date: 07/07/16 18:46:00 HAND CANDY DIPPER, Stop date: 07/07/16 18:46:00 HAND CANDY DIPPER Morphine 4 mg, Route: Inactive IVP, ONCE, 2016 [facility] Dosing Weight 90.909, kg, Priority: STAT, Start date: 07/07/16 18:46:00 HAND CANDY DIPPER, Stop date: 07/07/16 18:46:00 HAND CANDY DIPPER Zofran 4 mg, 2 mL, Inactive Route: IVP, 2016 [facility] Drug form: INJ, ONCE, Dosing Weight 90.909, kg, Priority: STAT, Start date: 07/07/16 18:12:00 HAND CANDY DIPPER, Stop date: 07/07/16 18:12:00 CSTNotes: (Same as: Zofran) MEDICATION WASTE Product Size: 4 mg Product Wasted: ___ mg Lactated Ringers 1,000 mL, Inactive 1,000 mL Rate: 1,000 2016 [facility] ml/hr, Infuse over: 1 hr, Route: IV, Dosing Weight 90.909 kg, Total Volume: 1,000, Start date: 07/07/16 18:11:00 HAND CANDY DIPPER, Duration: 1 doses or times, Stop date: 07/07/16 19:10:00 HAND CANDY DIPPER Saline Flush 10 mL, Route: Inactive 0.9% IVP, Drug 2016 [facility] Form: INJ, Dosing Weight 100, kg, PRN, PRN Line Flush, Start date: 07/07/16 17:10:00 HAND CANDY DIPPER, Duration: 30 day, Stop date: 08/06/16 17:09:00 CSTNotes: (Same as: BD Posiflush) Tramadol HCl 1 or 2 tablet Orally Active 50 mg Orally Fang 05/19/ Prachi every 6 hrs 2013 Fang for headache topiramate 25 mg, 1 tab, Inactive Route: PO, 2013 [facility] Drug form: TAB, Bedtime, Dosing Weight 100, kg, Start date: 05/14/14 21:00:00, Duration: 30 day, Stop date: 06/12/14 21:00:00Notes: (Same As: Topamax) "Do Not Crush" Lactulose 667 20 gm=30 ml, Active MG/ML Oral PO, TID, 2013 [facility] Solution constipation, # 1,000 mL, 0 Refill(s) pantoprazole 40 mg, 1 tab, Inactive Route: PO, 2013 [facility] Drug form: ECTAB, Before Dinner, Dosing Weight 100, kg, Start date: 05/14/14 16:30:00, Duration: 30 day, Stop date: 06/12/14 16:30:00Notes: Tablet should not be chewed or crushed. (Same as: Protonix) Lactulose 667 30 gm, 45 mL, Inactive MG/ML Oral Route: PO, 2013 [facility] Solution Drug Form: SYRP, Dosing Weight 100, kg, Daily, NOW, Start date: 05/14/14 12:30:00, Duration: 30 day, Stop date: 06/13/14 9:00:00Notes: (Same as:Chronulac) Clonidine 0.1 mg, 1 tab, Inactive Hydrochloride Route: PO, 2013 [facility] 0.1 MG Oral Drug form: Tablet TAB, [...] mg, 3 cap, Inactive Route: PO, 2013 [facility] Drug form: DRC, Daily, Dosing Weight 100, kg, Start date: 05/14/14 9:00:00, Duration: 30 day, Stop date: 06/12/14 9:00:00Notes: (Same as: Cymbalta) (Do Not Crush) Flagyl 500 mg, 100 No Longer mL, Route: Active 2013 [facility] IVPB, Drug form: INJ, [id number], Start date: 05/13/14 22:00:00, Duration: 30 day, Stop date: 06/12/14 14:00:00Notes: (Same as: Flagyl) Avoid alcohol. Alprazolam 2 MG 2 mg, 2 tab, No Longer Oral Tablet Route: PO, Active 2013 [facility] [Xanax] Drug form: TAB, BID, Dosing Weight 100, kg, Start date: 05/13/14 21:30:00, Duration: 30 day, Stop date: 06/12/14 21:00:00Notes: With food or milk (Same as: Xanax) Zofran 4 mg, 2 mL, No Longer Route: IVP, Active 2013 [facility] Drug form: INJ, Q6H, PRN Nausea, Start date: 05/13/14 21:01:00, Duration: 30 day, Stop date: 06/12/14 21:00:00Notes: (Same as: Zofran) Cipro 400 mg, 200 No Longer mL, Route: [facility] 2013 [facility] IVPB, Drug form: INJ, [id number], Start date: 05/13/14 21:00:00, Duration: 30 day, Stop date: 06/12/14 9:00:00Notes: Do not refrigerate Seroquel 50 mg, 2 tab, No Longer Route: PO, 2013 [facility] Drug form: TAB, Bedtime, Dosing Weight 100, kg, Start date: 05/13/14 21:00:00, Duration: 30 day, Stop date: 06/11/14 21:00:00Notes: (Same as: SEROquel) morphine Sulfate 4 mg, 2 mL, No Longer Route: IV, [facility] 2013 [facility] Drug form: INJ, Q4H, PRN Pain Score 6-10, Start date: 05/13/14 21:00:00, Duration: 30 day, Stop date: 06/12/14 20:59:00Notes: (Same as:MORPhine Sulfate) Sodium Chloride 1,000 mL, No Longer 0.45% IV 1,000 Rate: 125 2013 [facility] mL ml/hr, Infuse over: 8 hr, Route: IV, Dosing Weight 100 kg, Total Volume: 1,000, Start date: 05/13/14 21:00:00, Duration: 30 day, Stop date: 06/12/14 20:59:00 Singulair 10 mg, 1 tab, No Longer Route: PO, 2013 [facility] Drug form: TAB, Bedtime, Dosing Weight 100, kg, Start date: 05/13/14 21:00:00, Duration: 30 day, Stop date: 06/11/14 21:00:00Notes: (Same as:Singulair) Lamictal 250 mg, 2.5 No Longer tab, Route: 2013 [facility] PO, Drug form: TAB, Daily, Dosing Weight [...] tab, No Longer Route: PO, Active 2013 [facility] Drug form: TABDIS, Q8H, Dosing Weight 100, kg, PRN as needed for nausea/vomitin g, Start date: 05/13/14 18:51:00, Stop date: 06/12/14 18:50:00Notes: (Same as: Zofran ODT) Bentyl 20 mg, 1 tab, No Longer Route: PO, Active 2013 [facility] Drug form: TAB, QID, Dosing Weight 100, [...] Active Enteric Coated Daily, # 30 2013 [facility] Capsule cap, 0 [Cymbalta] Refill(s) Alprazolam 2 MG 2 mg, PO, BID, Active Oral Tablet 0 Refill(s) 2013 [facility] [Xanax] pantoprazole 40 =1 Pack, PO, Active MG Granules Daily, # 30 2013 [facility] [Protonix] ea, 0 Refill(s) Vader 1 tablet as Orally Active 10-325 MG [facility] needed Orally every 2013 Fang 6 hrs Dexilant 1 capsule Orally Active 30 MG Orally [facility] Ka Once a day 2013 Metronidazole 1 tablet Orally Active 500 mg Orally [facility] Ka Three times a 2013 day Cipro 1 tablet Orally Active 500 mg Orally [facility] Ka every 12 hrs 2013 Topiramate 1 tablet Orally Active 25 MG Orally [facility] Ka twice a day 2013 Fang (bid) Clonidine HCl 1 tablet at Orally Active 0.1 MG Orally [facility] bedtime twice a day 2013 Fang (bid) Dicyclomine 20 mg=1 tab, Active Hydrochloride 20 PO, QID, 2013 [facility] Oral Tablet abdominal [Bentyl] pain, # 30 tab, 0 Refill(s) Dicyclomine 20 mg=1 tab, Active Hydrochloride 20 PO, QID, 2013 [facility] Oral Tablet abdominal [Bentyl] pain, # 30 tab, 0 Refill(s) Ondansetron 4 MG 4 mg=1 tab, Active Disintegrating PO, Q8H, 2013 [facility] Tablet [Zofran] Nausea and Vomiting, Dissolve tab [...] 0.5 mg, 0.5 Inactive mL, Route: 2013 [facility] IVP, Drug form: INJ, ONCE, Dosing Weight 100, kg, Priority: STAT, Start date: 01/04/14 14:00:00, Stop date: 01/04/14 14:00:00 Sodium Chloride 1,000 mL, Inactive 0.154 MEQ/ML 1,000 ml/hr, 2013 [facility] Injectable Infuse Over: 1 Solution hr, Route: IV, 1,000, Drug form: INJ, ONCE, Priority: STAT, Dosing Weight 100 kg, Start date: 01/04/14 11:44:00, Duration: 1 doses or times, Stop date: 01/04/14 11:44:00 Ondansetron 4 mg, 2 mL, Inactive Route: IVP, 2013 [facility] Drug form: INJ, ONCE, Dosing Weight 100, kg, Priority: STAT, Start date: 01/04/14 11:44:00, Stop date: 01/04/14 11:44:00Notes: (Same as: Zofran) Lorazepam 1 mg, 0.5 mL, Inactive Route: IVP, 2013 [facility] Drug form: INJ, ONCE, Dosing Weight 100, kg, Priority: STAT, Start date: 01/04/14 11:44:00, Stop date: 01/04/14 11:44:00Notes: (Same as: Ativan) Hydromorphone 0.5 mg, 0.5 Inactive mL, Route: 2013 [facility] IVP, Drug form: INJ, ONCE, Dosing Weight 100, kg, Priority: STAT, Start date: 01/04/14 11:44:00, Stop date: 01/04/14 11:44:00 Zofran 4 mg, Route: Inactive IVP, Drug 2013 [facility] form: INJ, ONCE, Dosing Weight 100, kg, Priority: STAT, Start date: 01/04/14 9:52:00, Stop date: 01/04/14 9:52:00 Phenergan 25 mg 25 mg, 1 tab, PO Active Black oral tablet PO, Q4H, PRN, 2011 [facility] 15 tab, Nausea, Substitution Allowed Zofran 4 mg, 2 mL, IVP No Longer Banda Route: IVP, Active 2011 [facility] Drug form: INJ, ONCE, kg, Start date: 01/24/12 10:21:00, Stop date: 01/24/12 10:21:00 ketorolac 30 mg, 1 mL, IV No Longer Banda Route: IV, Active 2011 [facility] Drug form: INJ, ONCE, kg, Priority: STAT, Start date: 01/24/12 8:29:00, Stop date: 01/24/12 8:29:00 Phenergan + 12.5 mg, 0.5 IVP No Longer Banda Sodium Chloride mL, Route: IVP Central Active 2011 [facility] 0.9% IV 20 mL Central, Drug form: INJ, ONCE, kg, PRN Nausea & Vomiting, Start date: 01/24/12 8:27:00 Sodium Chloride 1,000 mL, IV No Longer Banda 0.9% (Bolus) IV Rate: 1,000 Active 2011 [facility] 1,000 mL ml/hr, Infuse over: 1 hr, Route: IV, Dosing Weight 100 kg, Total Volume: 1,000, Priority: STAT, Start date: 01/24/12 8:27:00, Duration: 1 doses or times, Stop date: 01/24/12 9:26:00, Bolus DoseBolus Dose Saline Flush 5 ml, Route: IVP No Longer Banda 0.9% IVP, Drug Active 2011 [facility] Form: INJ, kg, PRN, PRN Line Flush, [...] Fang Bactrim Assertion Drug Active MH allergy [facility] Compazine Assertion shakey Propensity Active MH to adverse [facility] reactions to drug Reglan Assertion shakey Propensity Active MH to adverse [place] reactions to drug sulfa drugs Assertion Drug Active MH allergy [facility] Tape Assertion Drug Active allergy [facility] Immunizations Immunization Date Given Site Status Last Updated Comments Source Results Order Name Results Value Reference Date Interpretation Comments Source Range CHEM PANEL Lipase Lvl 243 unit/L 73 - 393 02/19 [facility] CARDIAC Troponin-I null 0.00 - 07/10 [facility] 0.40 [facility] CARDIAC CK MB null 0.5 - 3.6 07/10 [facility] /2016 [facility] CHEM PANEL B/C Ratio 8 6 - 25 07/10 [facility] CHEM PANEL A/G Ratio 1.2 0.7 - 1.6 07/10 [facility] CHEM PANEL Globulin 3.2 g/dL 2.7 - 4.2 07/10 [facility] CHEM PANEL AGAP 11.1 meq/L 10.0 - 07/10 20.0 [facility] CHEM PANEL eGFR 77 07/10 Result [...] is not recommended in the following populations: [place] [id number] Individuals with unstable creatinine concentrations, including patients [...] Phos 53 unit/L 39 - 136 07/10 [facility] CHEM PANEL Bili Total 0.3 mg/dL [...] Lvl 336 unit/L 73 - 393 07/10 [facility] HEMATOLOGY Lymphocytes 1.6 K/CMM 1.0 - 5.5 07/10 [facility] HEMATOLOGY Eosinophils 0.2 K/CMM 0.0 - 0.5 07/10 [facility] HEMATOLOGY Monocytes # 0.5 K/CMM 0.0 - 0.8 07/10 [facility] HEMATOLOGY Segs-Bands # 6.4 K/CMM 1.5 - 8.1 07/10 [facility] HEMATOLOGY Basophils # 0.0 K/CMM 0.0 - 0.2 07/10 [facility] HEMATOLOGY Basophils 0.5 % 0.0 - 1.0 07/10 [facility] HEMATOLOGY Monocytes 6.0 % 2.0 - 12.0 07/10 [facility] HEMATOLOGY Eosinophils 1.8 % 0.0 - 4.0 07/10 [facility] HEMATOLOGY Segs 72.9 % 45.0 - 07/10 MH 75.0 /2016 [facility] HEMATOLOGY Lymphocytes 18.8 % 20.0 - 07/10 MH 40.0 /2016 [facility] HEMATOLOGY Platelet 235 K/CMM 133 - 450 07/10 [facility] HEMATOLOGY MPV 8.1 fL 7.4 - 10.4 07/10 [facility] HEMATOLOGY MCHC 33.4 g/dL 32.0 - 07/10 MH 36.0 /2016 [facility] HEMATOLOGY RDW 13.2 % 11.5 - 07/10 MH 14.5 /2016 [facility] HEMATOLOGY Hct 41.7 % 42.0 - 07/10 MH 54.0 /2016 [facility] HEMATOLOGY MCH 30.4 pg 27.0 - 07/10 MH 31.0 [facility] HEMATOLOGY MCV 91.2 fL 80.0 - 07/10 94.0 [facility] HEMATOLOGY WBC 8.7 K/CMM 3.7 - 10.4 07/10 [facility] HEMATOLOGY Hgb 13.9 g/dL 14.0 - 07/10 18.0 [facility] HEMATOLOGY RBC 4.57 M/CMM 4.70 - 07/10 MH 6.10 /2016 [facility] URINE AND UA pH 7.0 5.0 - 8.0 07/10 STOOL [facility] URINE AND UA Glucose Negative Negative 07/10 [facility] mg/dL mg/dL /2016 [facility] URINE AND UA Protein Negative Negative 07/10 [facility] mg/dL mg/dL /2016 [facility] URINE AND UA <=1.0 0.1 - 1.0 07/10 [facility] Urobilinogen mg/dL /2016 [facility] URINE AND UA Turbidity Clear Clear 07/10 STOOL [facility] (07/09/16 8:42 PM) URINE AND UA Spec Grav 1.003 <=1.030 07/10 STOOL [facility] URINE AND UA Color Light Yellow Yellow 07/10 STOOL [facility] *NA* (07/09/16 8:42 PM) URINE AND UA Blood Small Negative 07/10 [facility] *ABN* (07/09/16 8:42 PM) URINE AND UA Bili Negative Negative 07/10 [facility] *NA* (07/09/16 8:42 PM) URINE AND UA Ketones Negative Negative 07/10 [facility] mg/dL mg/dL /2016 [facility] URINE AND UA RBC null 0 - 2 07/10 STOOL [facility] URINE AND UA WBC null 0 - 5 07/10 [facility] URINE AND UA Sq Epi Few /LPF Few /LPF 07/10 [facility] URINE AND UA Leuk Est Negative Negative 07/10 STOOL [facility] (07/09/16 8:42 PM) URINE AND UA Nitrite Negative Negative 07/10 STOOL [facility] (07/09/16 8:42 PM) Abdomen 2 Abdomen 2 Study: 2 views of abdomen 07/09 - views DX views DX - [facility] History: Abdominal pain Read by: Gema [...] 2.6 mg/dL 1.8 - 2.4 07/08 Lvl [facility] CHEM PANEL Lipase Lvl 248 unit/L 73 - 393 07/08 [facility] CHEM PANEL Amylase Lvl 79 unit/L 25 - 115 07/08 [facility] CHEM PANEL A/G Ratio 1.2 0.7 - 1.6 07/08 [facility] CHEM PANEL Globulin 3.5 g/dL 2.7 - 4.2 07/08 [facility] CHEM PANEL Bili Total 0.4 mg/dL 0.2 - 1.3 07/08 [facility] CHEM PANEL B/C Ratio 9 6 - 25 07/08 [facility] CHEM PANEL AGAP 8.9 meq/L 10.0 - 07/08 20.0 [facility] CHEM PANEL eGFR 95 07/08 Result [...] Lvl 78 mg/dL 70 - 99 07/08 [facility] CHEM PANEL BUN 9 mg/dL 7 - 22 07/08 [facility] CHEM PANEL CO2 30 meq/L 24 - 32 07/08 [facility] CHEM PANEL Alk Phos 54 unit/L 39 - 136 07/08 [facility] CHEM PANEL Calcium Lvl 8.9 mg/dL 8.5 - 10.5 07/08 [facility] CHEM PANEL Sodium Lvl 139 meq/L 135 - 145 07/08 [facility] CHEM PANEL Creatinine 0.96 mg/dL 0.50 - 07/08 Lvl 1.40 [facility] CHEM PANEL Albumin Lvl 4.1 g/dL 3.5 - 5.0 07/08 [place] CHEM PANEL Total 7.6 g/dL 6.4 - 8.4 07/08 [place] CHEM PANEL Potassium 3.9 meq/L 3.5 - 5.1 07/08 Lvl [facility] CHEM PANEL Chloride Lvl 104 meq/L 95 - 109 07/08 [facility] CHEM PANEL AST 9 unit/L 0 - 37 07/08 [facility] CHEM PANEL ALT 25 unit/L 0 - 65 07/08 [facility] HEMATOLOGY Eosinophils 0.1 K/CMM 0.0 - 0.5 07/08 [facility] HEMATOLOGY Basophils # 0.0 K/CMM 0.0 - 0.2 07/08 [facility] HEMATOLOGY Lymphocytes 1.8 K/CMM 1.0 - 5.5 07/08 [facility] HEMATOLOGY Monocytes # 0.4 K/CMM 0.0 - 0.8 07/08 [facility] HEMATOLOGY Eosinophils 1.5 % 0.0 - 4.0 07/08 [facility] HEMATOLOGY Basophils 0.4 % 0.0 - 1.0 07/08 [facility] HEMATOLOGY Segs-Bands # 4.6 K/CMM 1.5 - 8.1 07/08 [facility] HEMATOLOGY Monocytes 5.5 % 2.0 - 12.0 07/08 [facility] HEMATOLOGY Segs 66.8 % 45.0 - 07/08 MH 75.0 /2016 [facility] HEMATOLOGY Lymphocytes 25.8 % 20.0 - 07/08 MH 40.0 /2016 [facility] HEMATOLOGY MPV 8.4 fL 7.4 - 10.4 07/08 [facility] HEMATOLOGY MCH 30.0 pg 27.0 - 07/08 MH 31.0 [facility] HEMATOLOGY MCHC 32.7 g/dL 32.0 - 07/08 MH 36.0 /2016 [facility] HEMATOLOGY RDW 13.7 % 11.5 - 07/08 MH 14.5 /2016 [facility] HEMATOLOGY Platelet 277 K/CMM 133 - 450 07/08 [facility] HEMATOLOGY MCV 91.8 fL 80.0 - 07/08 94.0 [facility] HEMATOLOGY RBC 4.94 M/CMM 4.70 - 07/08 6.10 [facility] HEMATOLOGY WBC 6.9 K/CMM 3.7 - 10.4 07/08 [facility] HEMATOLOGY Hct 45.4 % 42.0 - 07/08 54.0 [facility] HEMATOLOGY Hgb 14.8 g/dL 14.0 - 07/08 18.0 [facility] URINE AND UA <=1.0 0.1 - 1.0 07/08 [facility] Urobilinogen mg/dL /2016 [facility] URINE AND UA Sq Epi None Seen 07/08 STOOL [facility] URINE AND UA Bacteria Occasional None Seen 07/08 [facility] /HPF /HPF /2016 [facility] URINE AND UA Nitrite Negative Negative 07/08 STOOL [facility] (07/07/16 6:15 PM) URINE AND UA Leuk Est Negative Negative 07/08 STOOL [facility] (07/07/16 6:15 PM) URINE AND UA Bili Negative Negative 07/08 STOOL [facility] *NA* (07/07/16 6:15 PM) URINE AND UA Blood Small Negative 07/08 STOOL [facility] *ABN* (07/07/16 6:15 PM) URINE AND UA Ketones Negative Negative 07/08 [facility] mg/dL mg/dL /2016 [facility] URINE AND UA Glucose Negative Negative 07/08 [facility] mg/dL mg/dL /2016 [facility] URINE AND UA Protein Negative Negative 07/08 [facility] mg/dL mg/dL [facility] URINE AND UA Color Colorless Yellow 07/08 [facility] *NA* (07/07/16 6:15 PM) URINE AND UA WBC null 0 - 5 07/08 [facility] URINE AND UA Turbidity Clear Clear 07/08 [facility] (07/07/16 6:15 PM) URINE AND UA pH 7.0 5.0 - 8.0 07/08 [facility] URINE AND UA Spec Grav 1.002 <=1.030 07/08 [facility] URINE AND UA <=1.0 0.1 - 1.0 05/14 [facility] Urobilinogen mg/dL [facility] URINE AND UA Color Ltyellow 05/14 [facility] URINE AND UA Spec Grav 1.006 <=1.030 05/14 [facility] URINE AND UA Glucose Negative Negative 05/14 [facility] mg/dL mg/dL [facility] URINE AND UA pH 7.0 5.0 - 8.0 05/14 [facility] URINE AND UA Turbidity Clear Clear 05/14 [facility] (05/14/14 8:48 AM) URINE AND UA Sq Epi None Seen 05/14 [facility] URINE AND UA Protein Negative Negative 05/14 [facility] mg/dL mg/dL [facility] URINE AND UA Leuk Est Negative Negative 05/14 [facility] (05/14/14 8:48 AM) URINE AND UA WBC null 0 - 5 05/14 [facility] URINE AND UA Nitrite Negative Negative 05/14 [facility] (05/14/14 8:48 AM) URINE AND UA Blood Negative Negative 05/14 [facility] (05/14/14 8:48 AM) URINE AND UA Bili Negative Negative 05/14 [facility] *NA* (05/14/14 8:48 AM) URINE AND UA Ketones Negative Negative 05/14 [facility] mg/dL mg/dL [facility] Abdomen/Pe Abdomen/Pelv I. CT SCAN of the ABDOMEN with CONTRAST 05/14 - lvis w IV is w IV /2013 - [facility] contrast contrast CT II. CT SCAN of [...] UIBC 282 ug/dl 110 - 370 05/14 [facility] ANEMIA % [place] 21 % 12 - 57 05/14 [facility] ANEMIA Iron 76 ug/dl 45 - 160 05/14 [facility] ANEMIA TIBC 358 ug/dl 228 - 428 05/14 [facility] ANEMIA Vitamin B12 510 pg/mL 254 - 1320 05/14 [facility] CHEM PANEL Lipase Lvl 170 unit/L 73 - 393 05/14 [facility] ELECTROLYT Chloride Lvl 105 meq/L 95 - 109 05/14 [facility] ELECTROLYT Sodium Lvl 141 meq/L 135 - 145 05/14 [facility] ELECTROLYT Potassium 3.7 meq/L 3.5 - 5.1 05/14 [facility] ELECTROLYT eGFR 82 05/14 1Result Comment: The [...] is not recommended in the following populations: [facility] 3m2 Individuals with unstable creatinine concentrations, including [...] AST 17 unit/L 0 - 37 05/14 [facility] ELECTROLYT ALT 25 unit/L 0 - 65 05/14 [facility] ELECTROLYT Creatinine 1.1 mg/dL 0.5 - 1.4 05/14 [facility] ELECTROLYT Glucose Lvl 85 mg/dL 70 - 99 05/14 2Interpretive Data: Adult reference range values reflect the clinical guidelines of the [place] [employer]. [facility] ELECTROLYT BUN 6 mg/dL 7 - 22 05/14 [facility] ELECTROLYT Albumin Lvl 3.6 g/dL 3.5 - [...] 8.7 meq/L 10.0 - 05/14 ES 20.0 [facility] HEMATOLOGY Segs-Bands # 2.1 K/CMM 1.5 - 8.1 05/14 [facility] HEMATOLOGY Eosinophils 8.1 % 0.0 - 4.0 05/14 [facility] HEMATOLOGY Monocytes 9.1 % 2.0 - 12.0 05/14 [facility] HEMATOLOGY Lymphocytes 38.2 % 20.0 - 05/14 40.0 [facility] HEMATOLOGY Monocytes # 0.4 K/CMM 0.0 - 0.8 05/14 [facility] HEMATOLOGY Eosinophils 0.4 K/CMM 0.0 - 0.5 05/14 # /2013 [facility] HEMATOLOGY Basophils 0.5 % 0.0 - 1.0 05/14 [facility] HEMATOLOGY Lymphocytes 1.8 K/CMM 1.0 - 5.5 05/14 # /2013 [facility] HEMATOLOGY Segs 44.1 % 45.0 - 05/14 75.0 [facility] HEMATOLOGY Sed Rate 8 mm/h 0 - 15 05/14 [facility] HEMATOLOGY Hgb 12.8 g/dL 14.0 - 05/14 18.0 [facility] HEMATOLOGY MCH 30.1 pg 27.0 - 05/14 31.0 /2013 [facility] HEMATOLOGY RBC 4.26 M/CMM 4.70 - 05/14 6.10 [facility] HEMATOLOGY Hct 38.5 % 42.0 - 05/14 MH 54.0 [facility] HEMATOLOGY RDW 13.1 % 11.5 - 05/14 MH 14.5 [facility] HEMATOLOGY Platelet 204 K/CMM 133 - 450 05/14 [facility] HEMATOLOGY MCV 90.4 fL 80.0 - 05/14 94.0 [facility] HEMATOLOGY MCHC 33.3 g/dL 32.0 - 05/14 MH 36.0 [facility] HEMATOLOGY MPV 9.1 fL 7.4 - 10.4 05/14 [facility] HEMATOLOGY WBC 4.8 K/CMM 3.7 - 10.4 05/14 [facility] IMMUNOLOGY C-REACTIVE 9.1 mg/L <=2.9 mg/L 05/14 PROTEIN [facility] URINE AND Occult Bld Negative Negative 01/04 [facility]OOL Stl [facility] (01/04/14 11:41 AM) CHEM PANEL Lipase Lvl 193 unit/L 73 - 393 01/04 [facility] CHEM PANEL Amylase Lvl 57 unit/L 25 - 115 01/04 [facility] CHEM PANEL eGFR 74 01/04 1Result Comment: [...] is not recommended in the following populations: [facility] 3m2 Individuals with unstable creatinine concentrations, including [...] Lvl 9.5 mg/dL 8.5 - 10.5 01/04 [facility] CHEM PANEL CO2 28 meq/L 24 - 32 01/04 [facility] CHEM PANEL Albumin Lvl 4.1 g/dL 3.5 - 5.0 01/04 [facility] CHEM PANEL Total 7.6 g/dL 6.4 - [...] values reflect the clinical guidelines of the [place] [employer]. [facility] CHEM PANEL BUN 6 mg/dL 7 - 22 01/04 [facility] CHEM PANEL Creatinine 1.2 mg/dL 0.5 - 1.4 01/04 [facility] CHEM PANEL A/G Ratio 1.2 0.7 - 1.6 01/04 [facility] CHEM PANEL Globulin 3.5 g/dL 2.0 - 4.0 01/04 [facility] CHEM PANEL B/C Ratio 5 6 - 25 01/04 [facility] CHEM PANEL AGAP 11.4 meq/L 10.0 - 01/04 20.0 [facility] HEMATOLOGY MCH 29.5 pg 27.0 - 01/04 31.0 [facility] HEMATOLOGY Hgb 14.4 g/dL 14.0 - 01/04 18.0 [facility] HEMATOLOGY Hct 43.3 % 42.0 - 01/04 54.0 /2013 [facility] HEMATOLOGY MCV 88.6 fL 80.0 - 01/04 94.0 [facility] HEMATOLOGY Platelet 231 K/CMM 133 - 450 01/04 [facility] HEMATOLOGY WBC 10.0 K/CMM 3.7 - 10.4 01/04 [facility] HEMATOLOGY RBC 4.89 M/CMM 4.70 - 01/04 MH 6.10 [facility] HEMATOLOGY MPV 8.9 fL 7.4 - 10.4 01/04 [facility] HEMATOLOGY MCHC 33.3 g/dL 32.0 - 01/04 MH 36.0 /2013 [facility] HEMATOLOGY RDW 13.5 % 11.5 - 01/04 MH 14.5 /2013 [facility] HEMATOLOGY Basophils # 0.1 K/CMM 0.0 - 0.2 01/04 /2013 [facility] HEMATOLOGY Segs 77.0 % 45.0 - 01/04 MH 75.0 /2013 [facility] HEMATOLOGY Lymphocytes 13.4 % 20.0 - 01/04 MH 40.0 /2013 [facility] HEMATOLOGY Eosinophils 1.6 % 0.0 - 4.0 01/04 /2013 [facility] HEMATOLOGY Monocytes 7.3 % 2.0 - 12.0 01/04 [facility] HEMATOLOGY Segs-Bands # 7.7 K/CMM 1.5 - 8.1 01/04 [facility] HEMATOLOGY Basophils 0.7 % 0.0 - 1.0 01/04 [facility] HEMATOLOGY Lymphocytes 1.3 K/CMM 1.0 - 5.5 01/04 MH # /2013 [facility] HEMATOLOGY Monocytes # 0.7 K/CMM 0.0 - 0.8 01/04 [facility] HEMATOLOGY Eosinophils 0.2 K/CMM 0.0 - 0.5 01/04 MH # /2013 [facility] URINE AND UA Bacteria Occasional None Seen 01/04 [facility] /HPF /HPF /2013 [facility] URINE AND UA Sq Epi Occasional Few /LPF 01/04 [facility] /LPF /2013 [facility] URINE AND UA Nitrite Negative Negative 01/04 [facility] (01/04/14 9:00 AM) URINE AND UA Bili Negative Negative 01/04 STOOL [facility] *NA* (01/04/14 9:00 AM) URINE AND UA Blood Negative Negative 01/04 [facility] (01/04/14 9:00 AM) URINE AND UA Protein Negative Negative 01/04 STOOL [facility] (01/04/14 9:00 AM) URINE AND UA Glucose Negative Negative 01/04 [facility] (01/04/14 9:00 AM) URINE AND UA 0.2 EU/dL 0.1 - 1.0 01/04 [facility] Urobilinogen [facility] URINE AND UA Ketones Negative Negative 01/04 STOOL [facility] *NA* (01/04/14 9:00 AM) URINE AND UA Color Yellow Yellow 01/04 STOOL [facility] *NA* (01/04/14 9:00 AM) URINE AND UA Turbidity Clear Clear 01/04 STOOL [facility] (01/04/14 9:00 AM) URINE AND UA Spec Grav <=1.005 <=1.030 01/04 [facility]
*NA*< [facility] br/>( 9:00 AM) URINE AND UA pH 7.5 5.0 - 8.0 01/04 STOOL [facility] URINE AND UA Leuk Est Negative Negative 01/04 STOOL [facility] (01/04/14 9:00 AM) Abdomen/Pe Abdomen/Pelv CT Abdomen [...] 218 unit/L 73 - 393 01/23 Normal [facility] CHEMISTRY AST 10 unit/L 0 - 37 01/23 Normal [facility] CHEMISTRY Calcium Lvl 8.4 mg/dL 8.5 - 10.5 01/23 LOW [facility] CHEMISTRY CO2 25 meq/L 24 - 32 01/23 Normal [facility] CHEMISTRY Total 6.8 g/dL 6.4 - 8.4 08/16 Normal MH [facility] CHEMISTRY Bili Total 0.2 mg/dL 0.2 - 1.3 01/23 Normal [facility] CHEMISTRY Albumin Lvl 3.6 g/dL 3.5 - 5.0 01/23 Normal [facility] CHEMISTRY Alk Phos 53 unit/L 39 - 136 01/23 Normal [facility] CHEMISTRY ALT 29 unit/L 0 - 65 01/23 Normal [facility] CHEMISTRY Glucose Lvl 86 mg/dL 70 - 99 01/23 Normal 1Interpretive Data: Adult reference range values reflect the clinical guidelines of the [place] [employer]. [facility] CHEMISTRY BUN 10 mg/dL 7 - 22 01/23 Normal [facility] CHEMISTRY Creatinine 1.0 mg/dL 0.5 - 1.4 01/23 Normal [facility] CHEMISTRY Potassium 3.6 meq/L 3.5 - 5.1 01/23 Normal [facility] CHEMISTRY Sodium Lvl 141 meq/L 135 - 145 01/23 Normal [facility] CHEMISTRY Chloride Lvl 108 meq/L 95 - 109 01/23 Normal [facility] CHEMISTRY AGAP 11.6 meq/L 10.0 - 01/23 Normal MH 20.0 [facility] CHEMISTRY B/C Ratio 10 6 - 25 01/23 Normal [facility] CHEMISTRY Globulin 3.2 g/dL 2.0 - 4.0 01/23 Normal [facility] CHEMISTRY A/G Ratio 1.1 0.7 - 1.6 01/23 Normal [facility] HEMATOLOGY Platelet 247 K/CMM 133 - 450 01/23 Normal [facility] HEMATOLOGY MPV 8.6 fL 7.4 - 10.4 01/23 Normal [facility] HEMATOLOGY RDW 14.9 % 11.5 - 01/23 HI MH 14.5 /2011 [facility] HEMATOLOGY MCHC 33.5 g/dL 32.0 - 01/23 Normal MH 36.0 [facility] HEMATOLOGY Hct 35.2 % 42.0 - 01/23 LOW MH 54.0 [facility] HEMATOLOGY MCV 85.8 fL 80.0 - 01/23 Normal MH 94.0 [facility] HEMATOLOGY MCH 28.7 pg 27.0 - 01/23 Normal MH 31.0 [facility] HEMATOLOGY RBC 4.10 M/CMM 4.70 - 01/23 LOW MH 6.10 [facility] HEMATOLOGY Hgb 11.8 g/dL 14.0 - 08 LOW 18.0 /2012 [facility] HEMATOLOGY WBC 4.1 K/CMM 3.7 - 10.4 / Normal /2011 [facility] HEMATOLOGY Basophils # 0.0 K/CMM 0.0 - 0.2 / Normal /2011 [facility] HEMATOLOGY Segs-Bands # 2.4 K/CMM 1.5 - 8.1 01/23 Normal /2011 [facility] HEMATOLOGY Lymphocytes 1.0 K/CMM 1.0 - 5.5 08/ Normal /2011 [facility] HEMATOLOGY Eosinophils 0.2 K/CMM 0.0 - 0.5 08/ Normal # /2011 [facility] HEMATOLOGY Monocytes # 0.4 K/CMM 0.0 - 0.8 01/23 Normal /2011 [facility] HEMATOLOGY Basophils 0.2 % 0.0 - 1.0 01/23 Normal /2011 [facility] HEMATOLOGY Segs 58.4 % 45.0 - 08 Normal 75.0 /2011 [facility] HEMATOLOGY Lymphocytes 25.2 % 20.0 - 08 Normal 40.0 [facility] HEMATOLOGY Monocytes 10.4 % 2.0 - 12.0 01/23 Normal [facility] HEMATOLOGY Eosinophils 5.8 % 0.0 - 4.0 08/ HI /2011 [facility] Vital Signs Vital Sign Value Date Comments Source Temperature Oral (F) 98.7 F 07/10/2016 [facility] Heart Rate 86 07/10/2016 [facility] Respitory Rate 15 07/10/2016 [facility] Systolic (mm Hg) 122 07/10/2016 [facility] Diastolic (mm Hg) 82 07/10/2016 [facility] Respitory Rate 18 07/10/2016 [facility] Heart Rate 87 07/10/2016 [facility] Systolic (mm Hg) 114 07/10/2016 [facility] Diastolic (mm Hg) 87 07/10/2016 [facility] Systolic (mm Hg) 134 07/10/2016 [facility] Diastolic (mm Hg) 95 07/10/2016 [facility] Heart Rate 98 07/10/2016 [facility] Respitory Rate 18 07/10/2016 [facility] Weight 90.909 07/10/2016 [facility] Temperature Oral (F) 99.0 F 07/10/2016 [facility] Respitory Rate 18 07/08/2016 [facility] Temperature Oral (F) 98.5 F 07/08/2016 [facility] Systolic (mm Hg) 134 07/08/2016 [facility] Diastolic (mm Hg) 94 07/08/2016 [facility] Heart Rate 79 07/08/2016 [facility] Systolic (mm Hg) 148 07/08/2016 [facility] Diastolic (mm Hg) 83 07/08/2016 [facility] Respitory Rate 20 07/08/2016 [facility] Heart Rate 81 07/08/2016 [facility] BMI Calculated 29.6 07/07/2016 [facility] Weight 90.909 07/07/2016 [facility] Temperature Oral (F) 98.1 F 07/07/2016 [facility] Height 175.26 cm 07/07/2016 [facility] Heart Rate 90 07/07/2016 [facility] Systolic (mm Hg) 139 07/07/2016 [facility] Diastolic (mm Hg) 90 07/07/2016 [facility] Respitory Rate 20 07/07/2016 [facility] Diastolic (mm Hg) 72 05/14/2014 [facility] Systolic (mm Hg) 105 05/14/2014 [facility] Respitory Rate 18 05/14/2014 [facility] Temperature Oral (F) 98.4 F 05/14/2014 [facility] Heart Rate 84 05/14/2014 [facility] Systolic (mm Hg) 100 05/14/2014 [facility] Diastolic (mm Hg) 63 05/14/2014 [facility] Heart Rate 75 05/14/2014 [facility] Temperature Oral (F) 97.8 F 05/14/2014 [facility] Respitory Rate 18 05/14/2014 [facility] Temperature Oral (F) 97.9 F 05/14/2014 [facility] Heart Rate 66 05/14/2014 [facility] Respitory Rate 17 05/14/2014 [facility] Systolic (mm Hg) 100 05/14/2014 [facility] Diastolic (mm Hg) 67 05/14/2014 [facility] Weight 100 05/13/2014 [facility] Height 175.26 cm 05/13/2014 [facility] BMI Calculated 32.56 05/13/2014 [facility] BMI Calculated 32.56 05/13/2014 [facility] Height 175.26 cm 05/13/2014 [facility] [...] Dbisen Fang Respitory Rate 18 04/19/2014 [facility]) 114 01/04/2014 [facility] Respitory Rate 18 01/04/2014 [facility] Diastolic (mm Hg) 69 01/04/2014 [facility] Diastolic (mm Hg) 68 01/04/2014 [facility] Heart Rate 83 01/04/2014 [facility] Respitory Rate 18 01/04/2014 [facility] Systolic (mm Hg) 115 01/04/2014 [facility] Heart Rate 91 01/04/2014 [facility] Respitory Rate 18 01/04/2014 [facility] BMI Calculated 32.56 01/04/2014 [facility] Height 175.26 cm 01/04/2014 [facility] Weight 100 01/04/2014 [facility] Temperature Oral (F) 98.4 F 01/04/2014 [facility] Diastolic (mm Hg) 81 01/04/2014 [facility] Systolic (mm Hg) 136 01/04/2014 [facility] Heart Rate 144 01/04/2014 [facility] Weight 100.000 01/24/2012 [facility] Height 175.26 cm 01/24/2012 [facility] Encounters Location Location Encounter Encounter Reason Attending ADM DC Status Source Details Type Number For Provider Date Date Visit Emergency [id number] SAMIR 01/23 01/23 Active [place] /2011 [facility] [id number] Samir Johnsone 01/04 01/04 [place] Emergency /2013 [facility] Prachi Initial [id number] 04/19 04/19 Prachi Guzmán MD visit [id number] /[id number] [facility] [id number] Prachi Initial [id number] 04/19 04/19 Prachi Guzmán MD visit [id number] /2013 [facility] [id number] Prachi Sick Visit [id number] 05/12 05/12 Prachi Guzmán MD - Follow up [id number] /[id number] [facility] for [id number] multiple problems [facility] Inpatient [id number] Prachi 05/13 05/14 ARON Guzmán /2013 [facility] Emergency [id number] Coy 07/07 07/08 ARON Burt /2016 [facility] Emergency [id number] Coy 07/10 07/10 ARON Burt /2016 [facility] Outpatient [id number] Non 02/19 02/19 ARON Donohue /2016 [facility] Procedures Procedure Code Date Perfomer Comments Source Appendectomy [id number] [facility] Bladder [id number] pt reports [facility] operation<sup>1</sup> bladder was blistered Cholecystectomy [id number] [facility] Appendectomy [id number] [facility] Bladder [id number] pt reports [facility] operation<sup>1</sup> bladder was blistered Cholecystectomy [id number] [facility]
--- OUTSIDE RECORDS SUMMARY | 2018-07-29 00:29 | XMS REPORT | CCD ---
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
--- OUTSIDE RECORDS SUMMARY | 2018-07-29 00:30 | XMS REPORT ---
:1970 [facility] [address] [place] [address] Dr. Dye [address] [place] [address] Care Team Providers Name Role Phone CINDY [...] MDReport Verified Date/Time: 2017 07:15:04 Reading Location: [facility] C013V Neuro Reading Room ESIUM 2017 06:19:00 Test Item Value Reference Range Comments MAGNESIUM (BEAKER) (test vije=825) 2.6 mg/dL 1.6-2.6 BASIC METABOLIC [id number] 06:19:00 Test Item Value Reference Range Comments SODIUM (BEAKER) (test 136 meq/L 136-145 rsgf=492) POTASSIUM (BEAKER) (test 4.6 meq/L 3.5-5.1 ldqc=854) CHLORIDE (BEAKER) (test 107 meq/L 98-107 svee=329) CO2 (BEAKER) (test 23 meq/L 22-29 szak=980) BLOOD UREA NITROGEN 13 mg/dL 7-21 (BEAKER) (test yqai=181) CREATININE (BEAKER) (test 0.81 mg/dL 0.57-1.25 qqgw=652) GLUCOSE RANDOM (BEAKER) 92 mg/dL 70-105 (test xzki=920) CALCIUM (BEAKER) (test 9.3 mg/dL 8.4-10.2 euvi=342) EGFR (BEAKER) (test 103 mL/min/1.73 sq m ESTIMATED GFR IS NOT bqec=2458) ACCURATE CREATININE CLEARANCE IN PREDICTING GLOMERULAR FILTRATION RATE. ESTIMATED GFR IS NOT APPLICABLE FOR DIALYSIS PATIENTS. CBC W/PLT COUNT & AUTO [id number] 05:45:00 Test Item Value Reference Range Comments WHITE BLOOD CELL COUNT (BEAKER) (test qgtg=209) 6.2 K/ L 3.5-10.5 RED BLOOD CELL COUNT (BEAKER) (test cosw=013) 4.22 M/ L 4.63-6.08 HEMOGLOBIN (BEAKER) (test asqp=697) 13.0 GM/DL 13.7-17.5 HEMATOCRIT (BEAKER) (test fopi=002) 40.2 % 40.1-51.0 MEAN CORPUSCULAR VOLUME (BEAKER) (test lkcz=483) 95.3 fL 79.0-92.2 MEAN CORPUSCULAR HEMOGLOBIN (BEAKER) (test 30.8 pg 25.7-32.2 kugk=706) MEAN CORPUSCULAR HEMOGLOBIN CONC (BEAKER) (test 32.3 GM/DL 32.3-36.5 ehtk=574) RED CELL DISTRIBUTION WIDTH (BEAKER) (test 13.2 % 11.6-14.4 kpqa=118) PLATELET COUNT (BEAKER) (test jjow=596) 212 K/CU MM 150-450 MEAN PLATELET VOLUME (BEAKER) (test flqt=289) 10.4 fL 9.4-12.4 NUCLEATED RED BLOOD CELLS (BEAKER) (test 0 /100 WBC 0-0 niac=871) NEUTROPHILS RELATIVE PERCENT (BEAKER) (test 53 % sksu=655) LYMPHOCYTES RELATIVE PERCENT (BEAKER) (test 31 % gtkp=601) MONOCYTES RELATIVE PERCENT (BEAKER) (test 8 % smim=788) EOSINOPHILS RELATIVE PERCENT (BEAKER) (test 7 % riqn=541) BASOPHILS RELATIVE PERCENT (BEAKER) (test 1 % nazu=553) NEUTROPHILS ABSOLUTE COUNT (BEAKER) (test 3.28 K/ L 1.78-5.38 gvjy=810) LYMPHOCYTES ABSOLUTE COUNT (BEAKER) (test 1.94 K/ L 1.32-3.57 iecs=013) MONOCYTES ABSOLUTE COUNT (BEAKER) (test 0.49 K/ L 0.30-0.82 balx=668) EOSINOPHILS ABSOLUTE COUNT (BEAKER) (test 0.43 K/ L 0.04-0.54 cyxv=475) BASOPHILS ABSOLUTE COUNT (BEAKER) (test 0.05 K/ L 0.01-0.08 lben=839) IMMATURE GRANULOCYTES-RELATIVE PERCENT (BEAKER) 0 % 0-1 (test corv=5708) TSH/FREE T4 IF [id number] 07:06:00 Test Item Value Reference Range Comments THYROID STIMULATING HORMONE (BEAKER) (test 2.05 uIU/mL 0.35-4.94 ihla=463) [id number] 07:03:00 Test Item Value Reference Range Comments MAGNESIUM (BEAKER) (test qdwf=872) 2.8 mg/dL 1.6-2.6 BASIC METABOLIC [id number] 07:03:00 Test Item Value Reference Range Comments SODIUM (BEAKER) (test 137 meq/L 136-145 aawa=268) POTASSIUM (BEAKER) (test 4.1 meq/L 3.5-5.1 cibf=132) CHLORIDE (BEAKER) (test 103 meq/L 98-107 gpch=526) CO2 (BEAKER) (test 28 meq/L 22-29 krwt=931) BLOOD UREA NITROGEN 15 mg/dL 7-21 (BEAKER) (test rtyp=497) CREATININE (BEAKER) (test 0.97 mg/dL 0.57-1.25 hsed=857) GLUCOSE RANDOM (BEAKER) 92 mg/dL 70-105 (test ifin=514) CALCIUM (BEAKER) (test 9.4 mg/dL 8.4-10.2 plns=228) EGFR (BEAKER) (test 83 mL/min/1.73 sq m ESTIMATED GFR IS NOT qdmy=0864) ACCURATE CREATININE CLEARANCE IN PREDICTING GLOMERULAR FILTRATION RATE. ESTIMATED GFR IS NOT APPLICABLE FOR DIALYSIS PATIENTS. [id number] 07:03:00 Test Item Value Reference Range Comments LIPASE (BEAKER) (test sscb=680) 96 U/L 8-78 LITHIUM [id number] 06:45:00 Test Item Value Reference Range Comments LITHIUM LEVEL (BEAKER) (test cvet=869) 0.6 mmol/L 0.8-1.2 CBC W/PLT COUNT & AUTO [id number] 06:37:00 Test Item Value Reference Range Comments WHITE BLOOD CELL COUNT (BEAKER) (test ocft=352) 4.8 K/ L 3.5-10.5 RED BLOOD CELL COUNT (BEAKER) (test ftum=349) 4.37 M/ L 4.63-6.08 HEMOGLOBIN (BEAKER) (test yhsu=387) 13.1 GM/DL 13.7-17.5 HEMATOCRIT (BEAKER) (test qkvx=939) 41.9 % 40.1-51.0 MEAN CORPUSCULAR VOLUME (BEAKER) (test ejwk=836) 95.9 fL 79.0-92.2 MEAN CORPUSCULAR HEMOGLOBIN (BEAKER) (test 30.0 pg 25.7-32.2 kbsh=766) MEAN CORPUSCULAR HEMOGLOBIN CONC (BEAKER) (test 31.3 GM/DL 32.3-36.5 itru=300) RED CELL DISTRIBUTION WIDTH (BEAKER) (test 13.2 % 11.6-14.4 eykk=233) PLATELET COUNT (BEAKER) (test bpbn=712) 217 K/CU MM 150-450 MEAN PLATELET VOLUME (BEAKER) (test dwvb=015) 9.8 fL 9.4-12.4 NUCLEATED RED BLOOD CELLS (BEAKER) (test 0 /100 WBC 0-0 wiro=247) NEUTROPHILS RELATIVE PERCENT (BEAKER) (test 47 % ptof=834) LYMPHOCYTES RELATIVE PERCENT (BEAKER) (test 31 % ipve=222) MONOCYTES RELATIVE PERCENT (BEAKER) (test 11 % dlqj=126) EOSINOPHILS RELATIVE PERCENT (BEAKER) (test 9 % tpon=555) BASOPHILS RELATIVE PERCENT (BEAKER) (test 1 % ttvw=712) NEUTROPHILS ABSOLUTE COUNT (BEAKER) (test 2.26 K/ L 1.78-5.38 kvun=904) LYMPHOCYTES ABSOLUTE COUNT (BEAKER) (test 1.51 K/ L 1.32-3.57 rusb=056) MONOCYTES ABSOLUTE COUNT (BEAKER) (test 0.55 K/ L 0.30-0.82 mxfa=499) EOSINOPHILS ABSOLUTE COUNT (BEAKER) (test 0.43 K/ L 0.04-0.54 ighf=455) BASOPHILS ABSOLUTE COUNT (BEAKER) (test 0.05 K/ L 0.01-0.08 hjuk=813) IMMATURE GRANULOCYTES-RELATIVE PERCENT (BEAKER) 0 % 0-1 (test xfwp=7814)
--- OUTSIDE RECORDS SUMMARY | 2018-07-29 00:30 | XMS REPORT ---
:1970 [facility] Care Team Providers Name Role Prachi [...] End Status Dosage Date Date Xanax MEDISPAN 57020-68 2 MG Orally Active 1/2 tablet 94-01 three times a in am and day (tid) noon, 1 tablet at bedtime Lamictal MEDISPAN 29182-13 250 Orally once Active 1 tablet 99-00 every night [facility]49 0.1 MG Orally Apr 19, Active 1 tablet 27-10 twice a day 2013 at bedtime (bid) Cymbalta MEDISPAN 45251-67 90 Orally Once a Active 1 capsule 40-01 day Depew MEDISPAN 04215-85 10-325 MG Orally May 12, May 27, Active 1 tablet 80-73 every 6 hrs 2013 2013 as needed [facility] 68678-10 30 MG Orally May 12, Active 1 capsule 66-30 Once a day 2013 Singulair MEDISPAN 26162-25 10 MG Orally Active 1 tablet 17-01 Once a day in the evening Tramadol HCl MEDISPAN 80365-07 50 mg Orally May 19, Active 1 or 2 58-01 every 6 hrs for 2014 tablet headache [facility]56 25 MG Orally Apr 19, Active 1 tablet 55-06 twice a day 2013 (bid) Metronidazole MEDISPAN 55756-23 500 mg Orally May 12May 22, Active 1 tablet 32-04 Three times a 2013 2013 day Protonix MEDISPAN 35274-60 40 mg Orally Inactive 1 tablet 41-81 once a day Seroquel MEDISPAN 17193-94 50 mg Orally Active 1 tablet 78-10 Once a day at bedtime Cipro MEDISPAN 64476-24 500 mg Orally May 12May 22, Active [...]
--- OUTSIDE RECORDS SUMMARY | 2018-07-29 00:30 | XMS REPORT ---
[...] End Status Dosage Date Date Topiramate MEDISPAN 34675-85 25 MG Orally Apr 19, Active 1 tablet 55-06 twice a day 2013 (bid) Seroquel MEDISPAN 09346-63 50 mg Orally Active 1 tablet 78-10 Once a day at bedtime Lisinopril MEDISPAN 21484-95 20 MG Orally Inactive 1 tablet 68-01 Once a day Clonidine HCl MEDISPAN 60267-87 0.1 MG Orally Apr 19, Active 1 tablet 27-10 twice a day 2013 at bedtime (bid) Tramadol HCl MEDISPAN 71015-88 50 mg Orally May 19, Active 1 or 2 58-01 every 6 hrs for 2013 tablet headache Xanax MEDISPAN 11720-84 2 MG Orally Active 1/2 tablet 94-01 three times a in am and day (tid) noon, 1 tablet at bedtime Singulair MEDISPAN 24418-37 10 MG Orally Active 1 tablet 17-01 Once a day in the evening Protonix MEDISPAN 63948-64 40 mg Orally Active 1 tablet 41-81 once a day Cymbalta MEDISPAN 31576-68 90 Orally Once a Active 1 capsule 40-01 [facility] 99581-11 250 Orally once Active 1 tablet 99-00 [...]
[2018-07-29 01:16] LABS: Absolute Lymphocytes (CBC) 2.4 K/uL (0.7-4.9); Absolute Monocytes 0.4 K/uL (0.1-1.3); Absolute Neutrophil 2.5 K/uL (1.8-8.0); Basophils % 0.9 % (0-1.3); Eosinophils % 5.7 % (0-4.4); Hematocrit 42.6 % (39.6-49.0); MPV 8.6 fL (7.6-11.3); Monocytes % 7.6 % (3.3-12.3); RBC Red Blood Cell Count 4.66 M/uL (4.33-5.43)
[2018-07-29] MEDS ORDERED: FAMOTIDINE 20 MG/2 ML VIAL IV ONE (01:23)
[2018-07-29] MEDS ORDERED: NA CHLORIDE 0.9% 1,000 ML ONE (01:23)
[2018-07-29] MEDS ORDERED: MORPHINE 4 MG/ML SYR ONE (01:23)
[2018-07-29] MEDS ORDERED: ONDANSETRON 4 MG/2 ML VIAL ONE (01:23)
[2018-07-29 01:46] LABS: ALT/SGPT 26 U/L (12-78); AST/SGOT 16 U/L (15-37); Albumin 4.7 g/dL (3.4-5.0); Alkaline Phosphatase 59 U/L (45-117); BUN Blood Urea Nitrogen 9 mg/dL (7-18); Bicarbonate 28 mmol/L (21-32); Bilirubin Direct < 0.1 mg/dL (0-0.2); Bilirubin Total 0.2 mg/dL (0.2-1.0); Glucose Level 73 mg/dL (74-106); Lipase 223 U/L (73-393); Potassium 3.2 mmol/L (3.5-5.1); Sodium Level 140 mmol/L (136-145)
--- NOTE | 2018-07-29 01:50 | EDPHYS ---
Physician Documentation [facility] Name: Thong Fuchs Jr Age: 47 yrs Sex: Male : 1970 Arrival Date: 07/29/2018 Time: 00:25 Bed 20 Private MD: ED Physician Jarocho Ruby HPI: 07/29 01:18 This 47 yrs old Male presents to ER via Ambulatory with complaints of ma2 Abdominal Pain. 01:18 The patient presents with abdominal pain. Onset: The symptoms/episode began/occurred ma2 gradually, 2 day(s) ago. Associated signs and symptoms: Pertinent positives: vomiting, Pertinent negatives: anorexia, chest pain, dysuria, testicular pain. Severity of pain: At its worst the pain was moderate in the emergency department the pain is unchanged. The patient has experienced similar episodes in the past. Historical: - Allergies: 00:34 Sulfa (Sulfonamide Antibiotics); bb 00:34 Reglan; "causes anxiety"; bb 00:34 Compazine; bb 00:34 Bactrim; bb - Home Meds: 00:34 venlafaxine 150 mg Oral cp24 once daily [Active]; quetiapine 200 mg Oral tab once daily bb [Active]; omeprazole 40 mg Oral cpDR 2 times per day [Active]; lithium carbonate 600 mg Oral cap 1 cap at bedtime [Active]; lamotrigine 200 mg Oral tab 2 tabs once daily [Active]; Lamictal Oral [Active]; lorazepam 2 mg Oral tab 1 tab 2 times per day [Active]; - PMHx: 00:34 Anxiety; Depression; guillain barre; Hypertension; PANCREATIC CALCIFICATION; bb Pancreatitis; - PSHx: 00:34 Appendectomy; rebecca foot; left wrist; Cholecystectomy; bb - Immunization history:: Adult Immunizations up to date. - Social history:: Smoking status: Patient uses tobacco products, smokes one-half pack cigarettes per day, Patient/guardian denies using alcohol, street drugs, Patient/guardian denies using The patient lives with family. - Ebola Screening: : No symptoms or risks identified at this time. - Family history:: not pertinent. ROS: 01:18 Eyes: Negative for injury, pain, redness, and discharge, Cardiovascular: Negative for ma2 chest pain, palpitations, and edema. 01:18 Abdomen/GI: Positive for abdominal pain, Negative for nausea and vomiting, diarrhea, abdominal cramps. 01:18 All other systems are negative. Exam: 01:18 Constitutional: This is a well developed, well nourished patient who is awake, alert, ma2 and in no acute distress. Chest/axilla: Normal chest wall appearance and motion. Nontender with no deformity. No lesions are appreciated. Cardiovascular: Regular rate and rhythm with a normal S1 and S2. No gallops, murmurs, or rubs. Normal PMI, no JVD. No pulse deficits. Respiratory: Lungs have equal breath sounds bilaterally, clear to auscultation and percussion. No rales, rhonchi or wheezes noted. No increased work of breathing, no retractions or nasal flaring. Abdomen/GI: Soft, non-tender, with normal bowel sounds. No distension or tympany. No guarding or rebound. No evidence of tenderness throughout. MS/ Extremity: Pulses equal, no cyanosis. Neurovascular intact. Full, normal range of motion. Neuro: Awake and alert, GCS 15, oriented to person, place, time, and situation. Cranial nerves II-XII grossly intact. Motor strength 5/5 in all extremities. Sensory grossly intact. Cerebellar exam normal. Normal gait. Vital Signs: 00:34 BP 142 / 89; Pulse 80; Resp 18 S; Temp 98.3(O); Pulse Ox 100% on R/A; Weight 74.84 kg bb (R); Height 5 ft. 9 in. (175.26 cm) (R); Pain 7/10; 01:45 BP 113 / 69; Pulse 66; Resp 16; Pulse Ox 100% on R/A; jb4 02:15 BP 117 / 65; Pulse 68; Resp 16; Pulse Ox 96% on R/A; jb4 00:34 Body Mass Index 24.37 (74.84 kg, 175.26 cm) bb MDM: 00:43 Patient medically screened. ma2 01:18 Differential diagnosis: gastritis, gastroesophageal reflux disease, pancreatitis. ma2 01:48 Data reviewed: vital signs, nurses notes, EMS record. Counseling: I had a detailed doctors hospital discussion with the patient and/or guardian regarding: the historical points, exam findings, and any diagnostic results supporting the discharge/admit diagnosis, the presence of at least one elevated blood pressure reading (>120/80) during this emergency department visit, the need for outpatient follow up. Response to treatment: the patient's symptoms have markedly improved after treatment. 07/29 00:46 Order name: Basic Metabolic Panel; Complete Time: :07/29 00:46 Order name: CBC with Diff; Complete Time: :47 07/29 00:46 Order name: Creatinine for Radiology; Complete Time: :07/29 00:46 Order name: Hepatic Function; Complete Time: :07/29 00:46 Order name: Lipase; Complete Time: :07/29 00:46 Order name: IV Saline Lock; Complete Time: :07/29 00:46 Order name: Labs collected and sent; Complete Time: : Administered Medications: 01:15 Drug: NS 0.9% 1000 ml Route: IV; Rate: 1 bolus; Site: left forearm; jb4 02:22 Follow up: Response: No adverse reaction; IV Status: Completed infusion jb4 01:15 Drug: Pepcid 20 mg Route: IVP; Site: left forearm; jb4 02:33 Follow up: Response: No adverse reaction jb4 01:17 Drug: Zofran 4 mg Route: IVP; Site: left forearm; jb4 02:33 Follow up: Response: No adverse reaction jb4 01:19 Drug: morphine 4 mg Route: IVP; Site: left forearm; jb4 02:34 Follow up: Response: No adverse reaction; Pain is decreased jb4 Disposition: 07/29/18 01:49 Discharged to Home. Impression: Pain localized to upper abdomen. - Condition is Stable. - Prescriptions for Tylenol- Codeine #3 300-30 mg Oral Tablet - take 2 tablet by ORAL route every 6 hours As needed; 30 tablet. Zofran 4 mg Oral Tablet - take 1 tablet by ORAL route every 12 hours As needed; 20 tablet. Tylenol- Codeine #3 300-30 mg Oral Tablet - take 2 tablet by ORAL route every 6 hours As needed; 6 tablet. - Work release form, Medication Reconciliation Form, Thank You Letter, Antibiotic Education, Prescription Opioid Use form. - Follow up: Private Physician; When: Tomorrow; Reason: Continuance of care. Signatures: Dispatcher [employer] EDShelbi Hilario, RN RN bb Ivan Saab RN RN jb4 Jarocho Ruby MD MD ma2 Corrections: (The following items were deleted from the chart) 02:36 01:49 07/29/2018 01:49 Discharged to Home. Impression: Pain localized to upper abdomen. jb4 Condition is Stable. Forms are Medication Reconciliation Form, Thank You Letter, Antibiotic Education, Prescription Opioid Use. Follow up: Private Physician; When: Tomorrow; Reason: Continuance of care. ma2
--- NOTE | 2018-07-29 01:50 | ER ---
Nurse's Notes [facility] Name: Thong Fuchs Jr Age: 47 yrs Sex: Male : 1970 Arrival Date: 07/29/2018 Time: 00:25 Bed 20 Private MD: Diagnosis: Pain localized to upper abdomen Presentation: 07/29 00:30 Presenting complaint: Patient states: he has hx of pancreatitis and this morning bb started having abdominal pain and vomiting. Transition of care: patient was not received from another setting of care. Onset of symptoms was July 28, 2018. Risk Assessment: Do you want to hurt yourself or someone else? Patient reports no desire to harm self or others. Initial Sepsis Screen: Does the patient meet any 2 criteria? No. Patient's initial sepsis screen is negative. Does the patient have a suspected source of infection? No. Patient's initial sepsis screen is negative. Care prior to arrival: None. 00:30 Method Of Arrival: Ambulatory bb 00:30 Acuity: LILO 3 bb Historical: - Allergies: 00:34 Sulfa (Sulfonamide Antibiotics); bb 00:34 Reglan; "causes anxiety"; bb 00:34 Compazine; bb 00:34 Bactrim; bb - Home Meds: 00:34 venlafaxine 150 mg Oral cp24 once daily [Active]; quetiapine 200 mg Oral tab once daily bb [Active]; omeprazole 40 mg Oral cpDR 2 times per day [Active]; lithium carbonate 600 mg Oral cap 1 cap at bedtime [Active]; lamotrigine 200 mg Oral tab 2 tabs once daily [Active]; Lamictal Oral [Active]; lorazepam 2 mg Oral tab 1 tab 2 times per day [Active]; - PMHx: 00:34 Anxiety; Depression; guillain barre; Hypertension; PANCREATIC CALCIFICATION; bb Pancreatitis; - PSHx: 00:34 Appendectomy; rebecca foot; left wrist; Cholecystectomy; bb - Immunization history:: Adult Immunizations up to date. - Social history:: Smoking status: Patient uses tobacco products, smokes one-half pack cigarettes per day, Patient/guardian denies using alcohol, street drugs, Patient/guardian denies using The patient lives with family. - Ebola Screening: : No symptoms or risks identified at this time. - Family history:: not pertinent. Screenin:45 Abuse screen: Denies threats or abuse. Nutritional screening: No deficits noted. jb4 Tuberculosis screening: No symptoms or risk factors identified. Fall Risk None identified. Assessment: 00:45 General: Appears in no apparent distress. uncomfortable, Behavior is calm, cooperative, jb4 appropriate for age. Pain: Complains of pain in abdomen Pain does not radiate. Pain currently is 7 out of 10 on a pain scale. Quality of pain is described as stabbing. Neuro: Level of Consciousness is awake, alert, obeys commands, Oriented to person, place, time, situation. Cardiovascular: Patient's skin is warm and dry. Respiratory: Airway is patent Respiratory effort is even, unlabored, Respiratory pattern is regular, symmetrical. GI: Bowel sounds present X 4 quads. Abd is soft X 4 quads Abdomen is tender to palpation X 4 quads. Reports lower abdominal pain, upper abdominal pain, nausea, vomiting. : No signs and/or symptoms were reported regarding the genitourinary system. EENT: No signs and/or symptoms were reported regarding the EENT system. Derm: Skin is intact, Skin is pink, warm \\T\\ dry. Musculoskeletal: Circulation, motion, and sensation intact. 01:45 Reassessment: Patient appears in no apparent distress at this time. Patient and/or jb4 family updated on plan of care and expected duration. Pain level reassessed. Patient is alert, oriented x 3, equal unlabored respirations, skin warm/dry/pink. 02:20 Reassessment: waiting for fluids to finish before discharge. jb4 02:29 Reassessment: Patient appears in no apparent distress at this time. Patient and/or jb4 family updated on plan of care and expected duration. Pain level reassessed. Patient is alert, oriented x 3, equal unlabored respirations, skin warm/dry/pink. Patient states feeling better. Vital Signs: 00:34 BP 142 / 89; Pulse 80; Resp 18 S; Temp 98.3(O); Pulse Ox 100% on R/A; Weight 74.84 kg bb (R); Height 5 ft. 9 in. (175.26 cm) (R); Pain 7/10; 01:45 BP 113 / 69; Pulse 66; Resp 16; Pulse Ox 100% on R/A; jb4 02:15 BP 117 / 65; Pulse 68; Resp 16; Pulse Ox 96% on R/A; jb4 00:34 Body Mass Index 24.37 (74.84 kg, 175.26 cm) ED Course: 00:25 Patient arrived in ED. ag3 00:31 Triage completed. bb 00:34 Arm band placed on Patient placed in an exam room, on a stretcher, on pulse oximetry. bb 00:35 Ivan Saab, RN is Primary Nurse. jb4 00:43 Jarocho Ruby MD is Attending Physician. ma2 00:45 Patient has correct armband on for positive identification. Bed in low position. Call jb4 light in reach. Side rails up X 1. Pulse ox on. NIBP on. 01:00 Initial lab(s) drawn, by me, sent to lab. Inserted saline lock: 22 gauge in left jb4 forearm, using aseptic technique. Blood collected. 02:32 IV discontinued, intact, bleeding controlled. jb4 02:32 No provider procedures requiring assistance completed. jb4 Administered Medications: 01:15 Drug: NS 0.9% 1000 ml Route: IV; Rate: 1 bolus; Site: left forearm; jb4 02:22 Follow up: Response: No adverse reaction; IV Status: Completed infusion jb4 01:15 Drug: Pepcid 20 mg Route: IVP; Site: left forearm; jb4 02:33 Follow up: Response: No adverse reaction jb4 01:17 Drug: Zofran 4 mg Route: IVP; Site: left forearm; jb4 02:33 Follow up: Response: No adverse reaction jb4 01:19 Drug: morphine 4 mg Route: IVP; Site: left forearm; jb4 02:34 Follow up: Response: No adverse reaction; Pain is decreased jb4 Outcome: 01:49 Discharge ordered by . ma2 02:33 Discharged to home ambulatory. jb4 02:33 Condition: stable 02:33 Discharge instructions given to patient, Instructed on discharge instructions, follow up and referral plans. medication usage, Demonstrated understanding of instructions, follow-up care, medications, Prescriptions given X 2. 02:36 Patient left the ED. jb4 Signatures: Shelbi Bustamante RN RN bb Ivan Saab, JESSA GERMAIN jb4 Jarocho Ruby MD MD [facility] [place] 3
[2018-07-29 02:42] VITALS: TEMP 98.3
[2018-07-29 02:45] VITALS: BP 117/65; O2SAT 96
== END 2018-07-29 02:36 | disposition home or self-care (01) ==
LOC: ER 00:21
DX: R10.10 Upper abdominal pain, unspecified (principal); I10 Essential (primary) hypertension; F32.9 Major depressive disorder, single episode, unspecified; F41.9 Anxiety disorder, unspecified; Z88.1 Allergy status to other antibiotic agents; Z88.2 Allergy status to sulfonamides; Z88.8 Allergy status to other drugs, medicaments and biological substances
CPT/HCPCS: 36415; 80048; 80076; 83690; 85025; J2405; J7030

== ENCOUNTER 2018-09-16 18:33 | Emergency (ER) | payer SELFPAY ==
--- OUTSIDE RECORDS SUMMARY | 2018-09-16 18:35 | XMS REPORT | Clinical Summary ---
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 after 09/15/2017 Results EKG-SCANNED (12/09/2017 1:44 PM CDT) Narrative Performed At MR brain without IV contrast (2017 5:32 AM CDT) Narrative Performed At FINAL REPORT [facility] MRI brain without contrast INDICATION: Lightheadedness, weakness [...] MD Report Verified Date/Time:2017 07:15:04 Reading Location: [facility] Neuro Reading Room Procedure Note Interface, [...] Report Verified Date/Time: 2017 07:15:04 Reading Location: [address] Neuro Reading Room Performing Organization Address City/State/Zipcode Phone Number GE RIS CBC with platelet count + automated diff (2017 4:48 AM CDT)Only the most recent of2 resultswithin the time period is included. WBC 6.2 3.5 - 10.5 K/L [facility] RBC 4.22 (L) 4.63 - 6.08 M/L [facility] Hemoglobin 13.0 (L) 13.7 - 17.5 GM/DL [facility] Hematocrit 40.2 40.1 - 51.0 % [facility] MCV 95.3 (H) 79.0 - 92.2 fL [facility] MCH 30.8 25.7 - 32.2 pg [facility] MCHC 32.3 32.3 - 36.5 GM/DL [facility] RDW 13.2 11.6 - 14.4 % [facility] Platelets 212 150 - 450 K/CU MM [facility] MPV 10.4 9.4 - 12.4 fL [facility] nRBC 0 0 - 0 /100 WBC [facility] % Neutros 53 % [facility] % Lymphs 31 % [facility] % Monos 8 % [facility] % Eos 7 % [facility] % Baso 1 % [facility] # Neutros 3.28 1.78 - 5.38 K/L [facility] # Lymphs 1.94 1.32 - 3.57 K/L [facility] # Monos 0.49 0.30 - 0.82 K/L [facility] # Eos 0.43 0.04 - 0.54 K/L [facility] # Baso 0.05 0.01 - 0.08 K/L [facility] Immature Granulocytes-Relative 0 0 - 1 % [facility] Specimen Blood - Arm, Right Performing Organization Address City/[facility] Phone Number [address] [phone] CENTER Magnesium (2017 4:48 AM CDT)Only the most recent of2 resultswithin the time period is included. Magnesium 2.6 1.6 - 2.6 mg/dL [facility] Specimen Blood - Arm, Right Performing Organization Address City/State/Zipcode Phone Number [address] [phone] CENTER Basic metabolic panel (2017 4:48 AM CDT)Only the most recent of2 resultswithin the time period is included. Sodium 136 136 - 145 meq/L [facility] Potassium 4.6 3.5 - 5.1 meq/L [facility] Chloride 107 98 - 107 meq/L [facility] CO2 23 22 - 29 meq/L [facility] BUN 13 7 - 21 mg/dL [facility] Creatinine 0.81 0.57 - 1.25 mg/dL [facility] Glucose 92 70 - 105 mg/dL [facility] Calcium 9.3 8.4 - 10.2 mg/dL [facility] EGFR 103Comment: ESTIMATED GFR IS mL/min/1.73 sq m [facility] NOT ACCURATE CREATININE [facility] CLEARANCE IN PREDICTING GLOMERULAR FILTRATION RATE. ESTIMATED GFR IS NOT APPLICABLE FOR DIALYSIS PATIENTS. Specimen Blood - Arm, Right Performing Organization Address City/[facility]/Zipcode Phone Number [address] [phone] [place] TSH/Free T4 If Indicated (12/05/2017 5:42 AM CDT) TSH 2.05 0.35 - 4.94 uIU/mL [facility] Specimen Blood Performing Organization Address [facility] Centercode Phone Number [address] [phone] CENTER Lipase (12/05/2017 5:42 AM CDT) Lipase 96 (H) 8 - 78 U/L [facility] Specimen Blood Performing Organization Address City/[facility] Centercode Phone Number [address] [phone] CENTER [place] level (12/05/2017 5:42 AM CDT) [place] Level 0.6 (L) 0.8 - 1.2 mmol/L [facility] Specimen Blood Performing Organization Address [facility] Centercode Phone Number [address] [address] CENTER after 09/15/2017 Advance Directives For more information, please contact:[address] [phone] Code Status Date Activated Date Inactivated Comments Full Code 12/04/2017 8:31 PM 2017 5:00 PM This code status was determined by: Patient
--- OUTSIDE RECORDS SUMMARY | 2018-09-16 18:40 | XMS REPORT | Continuity of Care Document ---
:1970 Author Organization Interface Problems Problem Status Onset Classification Date Comments Source Date Reported ABDOMINAL PAIN Active 02/19/20 [facility] [place] 07/10/19 07/13/2016 [facility] Diagnosis: 17 Generalized abdominal pain LOWER ABD PAIN Active 05/13/20 [place] 14 ABD PAIN, Active 05/13/20 [facility] POSSIBLE ACUTE 14 DIVERTICULITIS Discharge 01/05/20 01/07/2014 [facility] Diagnosis: 14 Abdominal pain NAUSEA OR Active 01/24/20 [facility] VOMITING/ABD PAIN 12 Abdominal pain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 02/21/2017 [place] Anxiety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 02/21/2017 [place] Anxiety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 02/21/2017 depression [place],[facility] Depression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 02/21/2017 [facility] 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 [place],[facility] Guillain-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 [place] Nausea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 02/21/2017 [facility] Pancreatitis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 02/21/2017 [facility] Pancreatitis,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 02/21/2017 acute [place],[facility] Abdominal pain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 01/26/2012 [facility] Anxiety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 01/26/2012 [facility] Depression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 01/26/2012 [facility] 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 Nausea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 01/26/2012 [facility] Pancreatitis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 01/26/2012 [facility] Diverticulitis of Active Diagnosis 06/03/2014 [facility] colon GERD -Esophageal Active Diagnosis 06/03/2014 K[facility] Fang reflux Hypertension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 06/03/2014 [facility] Tension headache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 06/03/2014 [facility] Allergic rhinitis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 06/03/2014 K[facility] Fang Chronic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 06/03/2014 Kais[facility] Fang pancreatitis Bipolar disorder,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 06/03/2014 Kaisen Fang unspecified ABDMNAL PAIN Active [facility] SITE Medications Medication Details Route Status Patient Ordering Order Source Instructions Provider Date Morphine 2 mg, Route: Inactive IVP, ONCE, 2016 [facility] Dosing Weight 90.909, kg, Priority: STAT, Start date: 07/10/16 0:15:00 [employer], Stop date: 07/10/16 0:15:00 [employer] Phenergan 12.5 mg, Inactive Route: IM, 2016 [facility] ONCE, Dosing Weight 90.909, kg, Priority: STAT, Start date: 07/10/16 0:14:00 [employer], Stop date: 07/10/16 0:14:00 [employer] Zofran 4 mg, Route: Inactive IVP, Drug 2016 [facility] form: INJ, ONCE, Dosing Weight 90.909, kg, Priority: STAT, Start date: 07/09/16 23:36:00 [employer], Stop date: 07/09/16 23:36:00 [employer] Bentyl 20 mg, Route: Inactive IM, ONCE, 2016 [facility] Dosing Weight 90.909, kg, Start date: 07/09/16 22:50:00 [employer], Stop date: 07/09/16 22:50:00 [employer] Morphine 4 mg, 1 mL, Inactive Route: IVP, 2016 [facility] Drug form: SOLN, ONCE, Dosing Weight 90.909, kg, Priority: STAT, Start date: 07/09/16 22:05:00 [employer], Stop date: 07/09/16 22:05:00 CSTNotes: (Same as:MORPhine Sulfate) Sodium Chloride 1,000 mL, Inactive 0.154 MEQ/ML 1,000 ml/hr, 2016 [facility] Injectable Infuse Over: 1 Solution hr, Route: IV, ONCE, Priority: STAT, Dosing Weight 90.909 kg, Start date: 07/09/16 22:04:00 [employer], Duration: 1 doses or times, Stop date: 07/09/16 22:04:00 [employer] Sodium Chloride 1,000 mL, Inactive 0.154 MEQ/ML 1,000 ml/hr, 2016 [facility] Injectable Infuse Over: 1 Solution hr, Route: IV, 1,000, Drug form: INJ, ONCE, Priority: STAT, Dosing Weight 90.909 kg, Start date: 07/09/16 21:47:00 [employer], Duration: 1 doses or times, Stop date: 07/09/16 21:47:00 [employer] Zofran 4 mg, 2 mL, Inactive Route: IVP, 2016 [facility] Drug form: INJ, ONCE, Dosing Weight 90.909, kg, Priority: STAT, Start date: 07/09/16 21:47:00 [employer], Stop date: 07/09/16 21:47:00 CSTNotes: (Same as: Zofran) MEDICATION WASTE Product Size: 4 mg Product Wasted: ___ mg Ativan 1 mg, 0.5 mL, Inactive Route: IVP, 2016 [facility] Drug form: INJ, ONCE, Dosing Weight 90.909, kg, Priority: STAT, Start date: 07/07/16 20:25:00 [employer], Stop date: 07/07/16 20:25:00 CSTNotes: (Same as: Ativan) Morphine 4 mg, 1 mL, Inactive Route: IVP2016 [facility] Drug form: SOLN, ONCE, Dosing Weight 90.909, kg, Priority: STAT, Start date: 07/07/16 20:22:00 [employer], Stop date: 07/07/16 20:22:00 CSTNotes: (Same as:MORPhine Sulfate) Ativan 1 mg, Route: Inactive IVP, Drug 2016 [facility] form: INJ, ONCE, Dosing Weight 90.909, kg, Priority: STAT, Start date: 07/07/16 18:46:00 [employer], Stop date: 07/07/16 18:46:00 [employer] Morphine 4 mg, Route: Inactive IVP, ONCE, 2016 [facility] Dosing Weight 90.909, kg, Priority: STAT, Start date: 07/07/16 18:46:00 [employer], Stop date: 07/07/16 18:46:00 [employer] Zofran 4 mg, 2 mL, Inactive Route: IVP, 2016 [facility] Drug form: INJ, ONCE, Dosing Weight 90.909, kg, Priority: STAT, Start date: 07/07/16 18:12:00 [employer], Stop date: 07/07/16 18:12:00 CSTNotes: (Same as: Zofran) MEDICATION WASTE Product Size: 4 mg Product Wasted: ___ mg Lactated Ringers 1,000 mL, Inactive 1,000 mL Rate: 1,000 2016 [facility] ml/hr, Infuse over: 1 hr, Route: IV, Dosing Weight 90.909 kg, Total Volume: 1,000, Start date: 07/07/16 18:11:00 [employer], Duration: 1 doses or times, Stop date: 07/07/16 19:10:00 [employer] Saline Flush 10 mL, Route: Inactive 0.9% IVP, Drug 2016 [facility] Form: INJ, Dosing Weight 100, kg, PRN, PRN Line Flush, Start date: 07/07/16 17:10:00 [employer], Duration: 30 day, Stop date: 08/06/16 17:09:00 CSTNotes: (Same as: BD Posiflush) Tramadol HCl 1 or 2 tablet Orally Active 50 mg Orally Fang 05/19/ Prachi every 6 hrs 2013 [facility] for headache topiramate 25 mg, 1 tab, Inactive Route: PO, 2013 [facility] Drug form: TAB, Bedtime, Dosing Weight 100, kg, Start date: 05/14/14 21:00:00, Duration: 30 day, Stop date: 06/12/14 21:00:00Notes: (Same As: Topamax) "Do Not Crush" Lactulose 667 20 gm=30 ml, Active MG/ML Oral PO, TID, 2013 [facility] Solution constipation, # 1,000 mL, 0 Refill(s) pantoprazole 40 mg, 1 tab, Inactive Route: PO, 2013 [facility] Drug form: ECTAB, Before Dinner, Dosing Weight 100, kg, Start date: 05/14/14 16:30:00, Duration: 30 day, Stop date: 06/12/14 16:30:00Notes: Tablet should not be chewed or crushed. (Same as: Protonix) Lactulose 667 30 gm, 45 mL, Inactive MG/ML Oral Route: PO, 2013 [facility] Solution Drug Form: SYRP, Dosing Weight 100, kg, Daily, NOW, Start date: 05/14/14 12:30:00, Duration: 30 day, Stop date: 06/13/14 9:00:00Notes: (Same as:Chronulac) Clonidine 0.1 mg, 1 tab, Inactive Hydrochloride Route: PO, 2013 [facility] 0.1 MG Oral Drug form: Tablet TAB, [...] mg, 3 cap, Inactive Route: PO, 2013 [facility] Drug form: DRC, Daily, Dosing Weight 100, kg, Start date: 05/14/14 9:00:00, Duration: 30 day, Stop date: 06/12/14 9:00:00Notes: (Same as: Cymbalta) (Do Not Crush) Flagyl 500 mg, 100 No Longer mL, Route: Active 2013 [facility] IVPB, Drug form: INJ, [id number], Start date: 05/13/14 22:00:00, Duration: 30 day, Stop date: 06/12/14 14:00:00Notes: (Same as: Flagyl) Avoid alcohol. Alprazolam 2 MG 2 mg, 2 tab, No Longer Oral Tablet Route: PO, Active 2013 [facility] [Xanax] Drug form: TAB, BID, Dosing Weight 100, kg, Start date: 05/13/14 21:30:00, Duration: 30 day, Stop date: 06/12/14 21:00:00Notes: With food or milk (Same as: Xanax) Zofran 4 mg, 2 mL, No Longer Route: IVP, Active 2013 [facility] Drug form: INJ, Q6H, PRN Nausea, Start date: 05/13/14 21:01:00, Duration: 30 day, Stop date: 06/12/14 21:00:00Notes: (Same as: Zofran) Cipro 400 mg, 200 No Longer mL, Route: [facility] 2013 [facility] IVPB, Drug form: INJ, [id number], Start date: 05/13/14 21:00:00, Duration: 30 day, Stop date: 06/12/14 9:00:00Notes: Do not refrigerate Seroquel 50 mg, 2 tab, No Longer Route: PO, 2013 [facility] Drug form: TAB, Bedtime, Dosing Weight 100, kg, Start date: 05/13/14 21:00:00, Duration: 30 day, Stop date: 06/11/14 21:00:00Notes: (Same as: SEROquel) morphine Sulfate 4 mg, 2 mL, No Longer Route: IV, [facility] 2013 [facility] Drug form: INJ, Q4H, PRN Pain Score 6-10, Start date: 05/13/14 21:00:00, Duration: 30 day, Stop date: 06/12/14 20:59:00Notes: (Same as:MORPhine Sulfate) Sodium Chloride 1,000 mL, No Longer 0.45% IV 1,000 Rate: 125 2013 [facility] mL ml/hr, Infuse over: 8 hr, Route: IV, Dosing Weight 100 kg, Total Volume: 1,000, Start date: 05/13/14 21:00:00, Duration: 30 day, Stop date: 06/12/14 20:59:00 Singulair 10 mg, 1 tab, No Longer Route: PO, 2013 [facility] Drug form: TAB, Bedtime, Dosing Weight 100, kg, Start date: 05/13/14 21:00:00, Duration: 30 day, Stop date: 06/11/14 21:00:00Notes: (Same as:Singulair) Lamictal 250 mg, 2.5 No Longer tab, Route: 2013 [facility] PO, Drug form: TAB, Daily, Dosing Weight [...] tab, No Longer Route: PO, Active 2013 [facility] Drug form: TABDIS, Q8H, Dosing Weight 100, kg, PRN as needed for nausea/vomitin g, Start date: 05/13/14 18:51:00, Stop date: 06/12/14 18:50:00Notes: (Same as: Zofran ODT) Bentyl 20 mg, 1 tab, No Longer Route: PO, Active 2013 [facility] Drug form: TAB, QID, Dosing Weight 100, [...] Active Enteric Coated Daily, # 30 2013 [facility] Capsule cap, 0 [Cymbalta] Refill(s) Alprazolam 2 MG 2 mg, PO, BID, Active Oral Tablet 0 Refill(s) 2013 [facility] [Xanax] pantoprazole 40 =1 Pack, PO, Active MG Granules Daily, # 30 2013 [facility] [Protonix] ea, 0 Refill(s) [place] 1 tablet as Orally Active 10-325 MG [facility] needed Orally every 2013 Fang 6 hrs Dexilant 1 capsule Orally Active 30 MG Orally [facility] Ka Once a day 2013 Metronidazole 1 tablet Orally Active 500 mg Orally [facility] Ka Three times a 2013 day Cipro 1 tablet Orally Active 500 mg Orally [facility] Ka every 12 hrs 2013 [facility] Clonidine HCl 1 tablet at Orally Active 0.1 MG Orally [facility] bedtime twice a day 2013 Fang (bid) Topiramate 1 tablet Orally Active 25 MG Orally [facility] twice a day 2013 Fang (bid) Dicyclomine 20 mg=1 tab, Active Hydrochloride 20 PO, QID, 2013 [facility] Oral Tablet abdominal [Bentyl] pain, # 30 tab, 0 Refill(s) Dicyclomine 20 mg=1 tab, Active Hydrochloride 20 PO, QID, 2013 [facility] Oral Tablet abdominal [Bentyl] pain, # 30 tab, 0 Refill(s) Ondansetron 4 MG 4 mg=1 tab, Active Disintegrating PO, Q8H, 2013 [facility] Tablet [...] 0.5 mg, 0.5 Inactive mL, Route: 2013 [facility] [...] mg, 2 mL, Inactive Route: IVP, 2013 [facility] Drug form: INJ, ONCE, Dosing Weight 100, kg, Priority: STAT, Start date: 01/04/14 11:44:00, Stop date: 01/04/14 11:44:00Notes: (Same as: Zofran) Lorazepam 1 mg, 0.5 mL, Inactive Route: IVP, 2013 [facility] Drug form: INJ, ONCE, Dosing Weight 100, kg, Priority: STAT, Start date: 01/04/14 11:44:00, Stop date: 01/04/14 11:44:00Notes: (Same as: Ativan) Hydromorphone 0.5 mg, 0.5 Inactive mL, Route: 2013 [facility] IVP, Drug form: INJ, ONCE, Dosing Weight 100, kg, Priority: STAT, Start date: 01/04/14 11:44:00, Stop date: 01/04/14 11:44:00 Zofran 4 mg, Route: Inactive IVP, Drug 2013 [facility] form: INJ, ONCE, Dosing Weight 100, kg, [...] Chloride mL, Route: IVP Central Active 2011 [facility] 0.9% IV 20 mL [facility], Drug form: INJ, ONCE, kg, PRN Nausea & Vomiting, Start date: 01/24/12 8:27:00 Sodium Chloride 1,000 mL, IV No Longer Banda 0.9% (Bolus) IV Rate: 1,000 [facility] 2011 [facility] 1,000 mL ml/hr, [...] Reaction 4 Fang Bactrim Assertion Drug Active allergy [facility] Compazine Assertion shakey Propensity Active MH to adverse [facility] reactions to drug Reglan Assertion shakey Propensity Active MH to adverse [facility] reactions to drug sulfa drugs Assertion Drug Active MH allergy [facility] Tape Assertion Drug Active allergy [facility] Immunizations Immunization Date Given Site Status Last Updated Comments Source Results Order Name Results Value Reference Date Interpretation Comments Source Range CHEM PANEL Lipase Lvl 243 unit/L 73 - 393 02/19 [facility] CARDIAC Troponin-I null 0.00 - 07/10 [facility] 0.40 [facility] CARDIAC CK MB null 0.5 - 3.6 07/10 [facility] /2016 [facility] CHEM PANEL B/C Ratio 8 6 - 25 07/10 [facility] CHEM PANEL A/G Ratio 1.2 0.7 - 1.6 07/10 [facility] CHEM PANEL Globulin 3.2 g/dL 2.7 - 4.2 07/10 [facility] CHEM PANEL AGAP 11.1 meq/L 10.0 - 07/10 20.0 [facility] CHEM PANEL eGFR 77 07/10 Result Comment: [...] is not recommended in the following populations: [place] [id number] Individuals with unstable creatinine concentrations, including patients [...] Phos 53 unit/L 39 - 136 07/10 [facility] CHEM PANEL Bili Total 0.3 mg/dL 0.2 [...] Lvl 336 unit/L 73 - 393 07/10 [facility] HEMATOLOGY Lymphocytes 1.6 K/CMM 1.0 - 5.5 07/10 [facility] HEMATOLOGY Eosinophils 0.2 K/CMM 0.0 - 0.5 07/10 [facility] HEMATOLOGY Monocytes # 0.5 K/CMM 0.0 - 0.8 07/10 [facility] HEMATOLOGY Segs-Bands # 6.4 K/CMM 1.5 - 8.1 07/10 [facility] HEMATOLOGY Basophils # 0.0 K/CMM 0.0 - 0.2 07/10 [facility] HEMATOLOGY Basophils 0.5 % 0.0 - 1.0 07/10 [facility] HEMATOLOGY Monocytes 6.0 % 2.0 - 12.0 07/10 [facility] HEMATOLOGY Eosinophils 1.8 % 0.0 - 4.0 07/10 [facility] HEMATOLOGY Segs 72.9 % 45.0 - 07/10 MH 75.0 /2016 [facility] HEMATOLOGY Lymphocytes 18.8 % 20.0 - 07/10 MH 40.0 /2016 [facility] HEMATOLOGY Platelet 235 K/CMM 133 - 450 07/10 [facility] HEMATOLOGY MPV 8.1 fL 7.4 - 10.4 07/10 [facility] HEMATOLOGY MCHC 33.4 g/dL 32.0 - 07/10 MH 36.0 /2016 [facility] HEMATOLOGY RDW 13.2 % 11.5 - 07/10 MH 14.5 /2016 [facility] HEMATOLOGY Hct 41.7 % 42.0 - 07/10 MH 54.0 /2016 [facility] HEMATOLOGY MCH 30.4 pg 27.0 - 07/10 MH 31.0 [facility] HEMATOLOGY MCV 91.2 fL 80.0 - 07/10 94.0 [facility] HEMATOLOGY WBC 8.7 K/CMM 3.7 - 10.4 07/10 [facility] HEMATOLOGY Hgb 13.9 g/dL 14.0 - 07/10 18.0 [facility] HEMATOLOGY RBC 4.57 M/CMM 4.70 - 07/10 MH 6.10 /2016 [facility] URINE AND UA pH 7.0 5.0 - 8.0 07/10 STOOL [facility] URINE AND UA Glucose Negative Negative 07/10 [facility] mg/dL mg/dL /2016 [facility] URINE AND UA Protein Negative Negative 07/10 [facility] mg/dL mg/dL /2016 [facility] URINE AND UA <=1.0 0.1 - 1.0 07/10 [facility]OOL Urobilinogen mg/dL /2016 [facility] URINE AND UA Turbidity Clear Clear 07/10 STOOL [facility] (07/09/16 8:42 PM) URINE AND UA Spec Grav 1.003 <=1.030 07/10 STOOL [facility] URINE AND UA Color Light Yellow Yellow 07/10 STOOL [facility] *NA* (07/09/16 8:42 PM) URINE AND UA Blood Small Negative 07/10 [facility] *ABN* (07/09/16 8:42 PM) URINE AND UA Bili Negative Negative 07/10 [facility] *NA* (07/09/16 8:42 PM) URINE AND UA Ketones Negative Negative 07/10 [facility] mg/dL mg/dL /2016 [facility] URINE AND UA RBC null 0 - 2 07/10 STOOL [facility] URINE AND UA WBC null 0 - 5 07/10 [facility] URINE AND UA Sq Epi Few /LPF Few /LPF 07/10 [facility] URINE AND UA Leuk Est Negative Negative 07/10 STOOL [facility] (07/09/16 8:42 PM) URINE AND UA Nitrite Negative Negative 07/10 STOOL [facility] (07/09/16 8:42 PM) Abdomen 2 Abdomen 2 Study: 2 views of abdomen 07/09 - views DX views DX - [facility] History: Abdominal pain Read by: Gema Brock [...] 2.6 mg/dL 1.8 - 2.4 07/08 Lvl [facility] CHEM PANEL Lipase Lvl 248 unit/L 73 - 393 07/08 [facility] CHEM PANEL Amylase Lvl 79 unit/L 25 - 115 07/08 [facility] CHEM PANEL A/G Ratio 1.2 0.7 - 1.6 07/08 [facility] CHEM PANEL Globulin 3.5 g/dL 2.7 - 4.2 07/08 [facility] CHEM PANEL Bili Total 0.4 mg/dL 0.2 - 1.3 07/08 [facility] CHEM PANEL B/C Ratio 9 6 - 25 07/08 [facility] CHEM PANEL AGAP 8.9 meq/L 10.0 - 07/08 20.0 [facility] CHEM PANEL eGFR 95 07/08 Result Comment: [...] Lvl 78 mg/dL 70 - 99 07/08 [facility] CHEM PANEL BUN 9 mg/dL 7 - 22 07/08 [facility] CHEM PANEL CO2 30 meq/L 24 - 32 07/08 [facility] CHEM PANEL Alk Phos 54 unit/L 39 - 136 07/08 [facility] CHEM PANEL Calcium Lvl 8.9 mg/dL 8.5 - 10.5 07/08 [facility] CHEM PANEL Sodium Lvl 139 meq/L 135 - 145 07/08 [facility] CHEM PANEL Creatinine 0.96 mg/dL 0.50 - 07/08 Lvl 1.40 [facility] CHEM PANEL Albumin Lvl 4.1 g/dL 3.5 - 5.0 07/08 [facility] CHEM PANEL Total 7.6 g/dL 6.4 - 8.4 07/08 [facility] CHEM PANEL Potassium 3.9 meq/L 3.5 - 5.1 07/08 Lvl [facility] CHEM PANEL Chloride Lvl 104 meq/L 95 - 109 07/08 [facility] CHEM PANEL AST 9 unit/L 0 - 37 07/08 [facility] CHEM PANEL ALT 25 unit/L 0 - 65 07/08 [facility] HEMATOLOGY Eosinophils 0.1 K/CMM 0.0 - 0.5 07/08 [facility] HEMATOLOGY Basophils # 0.0 K/CMM 0.0 - 0.2 07/08 [facility] HEMATOLOGY Lymphocytes 1.8 K/CMM 1.0 - 5.5 07/08 [facility] HEMATOLOGY Monocytes # 0.4 K/CMM 0.0 - 0.8 07/08 [facility] HEMATOLOGY Eosinophils 1.5 % 0.0 - 4.0 07/08 [facility] HEMATOLOGY Basophils 0.4 % 0.0 - 1.0 07/08 [facility] HEMATOLOGY Segs-Bands # 4.6 K/CMM 1.5 - 8.1 07/08 [facility] HEMATOLOGY Monocytes 5.5 % 2.0 - 12.0 07/08 [facility] HEMATOLOGY Segs 66.8 % 45.0 - 07/08 MH 75.0 /2016 [facility] HEMATOLOGY Lymphocytes 25.8 % 20.0 - 07/08 MH 40.0 /2016 [facility] HEMATOLOGY MPV 8.4 fL 7.4 - 10.4 07/08 [facility] HEMATOLOGY MCH 30.0 pg 27.0 - 07/08 MH 31.0 [facility] HEMATOLOGY MCHC 32.7 g/dL 32.0 - 07/08 MH 36.0 /2016 [facility] HEMATOLOGY RDW 13.7 % 11.5 - 07/08 MH 14.5 /2016 [facility] HEMATOLOGY Platelet 277 K/CMM 133 - 450 07/08 [facility] HEMATOLOGY MCV 91.8 fL 80.0 - 07/08 94.0 [facility] HEMATOLOGY RBC 4.94 M/CMM 4.70 - 07/08 6.10 [facility] HEMATOLOGY WBC 6.9 K/CMM 3.7 - 10.4 07/08 [facility] HEMATOLOGY Hct 45.4 % 42.0 - 07/08 54.0 [facility] HEMATOLOGY Hgb 14.8 g/dL 14.0 - 07/08 18.0 [facility] URINE AND UA <=1.0 0.1 - 1.0 07/08 [facility] Urobilinogen mg/dL /2016 [facility] URINE AND UA Sq Epi None Seen 07/08 STOOL [facility] URINE AND UA Bacteria Occasional None Seen 07/08 [facility] /HPF /HPF /2016 [facility] URINE AND UA Nitrite Negative Negative 07/08 STOOL [facility] (07/07/16 6:15 PM) URINE AND UA Leuk Est Negative Negative 07/08 STOOL [facility] (07/07/16 6:15 PM) URINE AND UA Bili Negative Negative 07/08 STOOL [facility] *NA* (07/07/16 6:15 PM) URINE AND UA Blood Small Negative 07/08 STOOL [facility] *ABN* (07/07/16 6:15 PM) URINE AND UA Ketones Negative Negative 07/08 [facility] mg/dL mg/dL /2016 [facility] URINE AND UA Glucose Negative Negative 07/08 [facility] mg/dL mg/dL /2016 [facility] URINE AND UA Protein Negative Negative 07/08 [facility] mg/dL mg/dL [facility] URINE AND UA Color Colorless Yellow 07/08 [facility] *NA* (07/07/16 6:15 PM) URINE AND UA WBC null 0 - 5 07/08 [facility] URINE AND UA Turbidity Clear Clear 07/08 [facility] (07/07/16 6:15 PM) URINE AND UA pH 7.0 5.0 - 8.0 07/08 [facility] URINE AND UA Spec Grav 1.002 <=1.030 07/08 [facility] URINE AND UA <=1.0 0.1 - 1.0 05/14 [facility] Urobilinogen mg/dL [facility] URINE AND UA Color Ltyellow 05/14 [facility] URINE AND UA Spec Grav 1.006 <=1.030 05/14 [facility] URINE AND UA Glucose Negative Negative 05/[address] [facility] mg/dL mg/dL [facility] URINE AND UA pH 7.0 5.0 - 8.0 05/14 [facility] URINE AND UA Turbidity Clear Clear 05/14 [facility] (05/14/14 8:48 AM) URINE AND UA Sq Epi None Seen 05/14 [facility] URINE AND UA Protein Negative Negative 05/14 [facility] mg/dL mg/dL [facility] URINE AND [...] Ketones Negative Negative 05/14 [facility] mg/dL mg/dL [facility] Abdomen/Pe Abdomen/Pelv I. CT SCAN of the ABDOMEN with CONTRAST 05/14 - lvis w IV is w IV /2013 - [facility] contrast contrast CT [...] B12 510 pg/mL 254 - 1320 05/14 [facility] CHEM PANEL Lipase Lvl 170 unit/L 73 - 393 05/14 [facility] ELECTROLYT Chloride Lvl 105 meq/L 95 - 109 05/14 [facility] ELECTROLYT Sodium Lvl 141 meq/L 135 - 145 05/14 [facility] ELECTROLYT Potassium 3.7 meq/L 3.5 - 5.1 05/14 [facility] ELECTROLYT eGFR 82 05/14 1Result Comment: The [...] AST 17 unit/L 0 - 37 05/14 [facility] ELECTROLYT ALT 25 unit/L 0 - 65 05/14 [facility] ELECTROLYT Creatinine 1.1 mg/dL 0.5 - 1.4 05/14 [facility] ELECTROLYT Glucose Lvl 85 mg/dL 70 - 99 05/14 2Interpretive Data: Adult reference range values reflect the clinical guidelines of the [place] [employer]. [facility] ELECTROLYT BUN 6 mg/dL 7 - 22 05/14 [facility] ELECTROLYT Albumin Lvl 3.6 g/dL 3.5 - [...] 8.7 meq/L 10.0 - 05/14 ES 20.0 [facility] HEMATOLOGY Segs-Bands # 2.1 K/CMM 1.5 - 8.1 05/14 [facility] HEMATOLOGY Eosinophils 8.1 % 0.0 - 4.0 05/14 [facility] HEMATOLOGY Monocytes 9.1 % 2.0 - 12.0 05/14 [facility] HEMATOLOGY Lymphocytes 38.2 % 20.0 - 05/14 40.0 [facility] HEMATOLOGY Monocytes # 0.4 K/CMM 0.0 - 0.8 05/14 [facility] HEMATOLOGY Eosinophils 0.4 K/CMM 0.0 - 0.5 05/14 # /2013 [facility] HEMATOLOGY Basophils 0.5 % 0.0 - 1.0 05/14 [facility] HEMATOLOGY Lymphocytes 1.8 K/CMM 1.0 - 5.5 05/14 # /2013 [facility] HEMATOLOGY Segs 44.1 % 45.0 - 05/14 75.0 [facility] HEMATOLOGY Sed Rate 8 mm/h 0 - 15 05/14 [facility] HEMATOLOGY Hgb 12.8 g/dL 14.0 - 05/14 18.0 [facility] HEMATOLOGY MCH 30.1 pg 27.0 - 05/14 31.0 /2013 [facility] HEMATOLOGY RBC 4.26 M/CMM 4.70 - 05/14 6.10 [facility] HEMATOLOGY Hct 38.5 % 42.0 - 05/14 MH 54.0 [facility] HEMATOLOGY RDW 13.1 % 11.5 - 05/14 MH 14.5 [facility] HEMATOLOGY Platelet 204 K/CMM 133 - 450 05/14 [facility] HEMATOLOGY MCV 90.4 fL 80.0 - 05/14 94.0 [facility] HEMATOLOGY MCHC 33.3 g/dL 32.0 - 05/14 MH 36.0 [facility] HEMATOLOGY MPV 9.1 fL 7.4 - 10.4 05/14 [facility] HEMATOLOGY WBC 4.8 K/CMM 3.7 - 10.4 05/14 [facility] IMMUNOLOGY C-REACTIVE 9.1 mg/L <=2.9 mg/L 05/14 PROTEIN [facility] URINE AND Occult Bld [...] values reflect the clinical guidelines of the [place] [employer]. [facility] CHEM PANEL [...] 43.3 % 42.0 - 01/04 54.0 /2013 [facility] HEMATOLOGY MCV 88.6 fL 80.0 - 01/04 94.0 [facility] HEMATOLOGY Platelet 231 K/CMM 133 - 450 01/04 [facility] HEMATOLOGY WBC 10.0 K/CMM 3.7 - 10.4 01/04 [facility] HEMATOLOGY RBC 4.89 M/CMM 4.70 - 01/04 MH 6.10 [facility] HEMATOLOGY MPV 8.9 fL 7.4 - 10.4 01/04 [facility] HEMATOLOGY MCHC 33.3 g/dL 32.0 - 01/04 MH 36.0 /2013 [facility] HEMATOLOGY RDW 13.5 % 11.5 - 01/04 MH 14.5 /2013 [facility] HEMATOLOGY Basophils # 0.1 K/CMM 0.0 - 0.2 01/04 /2013 [facility] HEMATOLOGY Segs 77.0 % 45.0 - 01/04 MH 75.0 /2013 [facility] HEMATOLOGY Lymphocytes 13.4 % 20.0 - 01/04 MH 40.0 /2013 [facility] HEMATOLOGY Eosinophils 1.6 % 0.0 - 4.0 01/04 /2013 [facility] HEMATOLOGY Monocytes 7.3 % 2.0 - 12.0 01/04 [facility] HEMATOLOGY Segs-Bands # 7.7 K/CMM 1.5 - 8.1 01/04 [facility] HEMATOLOGY Basophils 0.7 % 0.0 - 1.0 01/04 [facility] HEMATOLOGY Lymphocytes 1.3 K/CMM 1.0 - 5.5 01/04 MH # /2013 [facility] HEMATOLOGY Monocytes # 0.7 K/CMM 0.0 - 0.8 01/04 [facility] HEMATOLOGY Eosinophils 0.2 K/CMM 0.0 - 0.5 01/04 MH # /2013 [facility] URINE AND UA Bacteria Occasional None Seen 01/04 STOOL /HPF /HPF /2013 [facility] URINE AND UA Sq Epi Occasional Few /LPF 01/04 STOOL /LPF /2013 [facility] URINE AND UA Nitrite Negative Negative 01/04 STOOL (01/04/14 9:00 AM) URINE AND UA Bili Negative Negative 01/04 STOOL [facility] *NA* (01/04/14 9:00 AM) URINE AND UA Blood Negative Negative 01/04 STOOL (01/04/14 9:00 AM) URINE AND UA Protein Negative Negative 01/04 STOOL [facility] (01/04/14 9:00 AM) URINE AND UA Glucose Negative Negative 01/04 STOOL (01/04/14 9:00 AM) URINE AND UA 0.2 EU/dL 0.1 - 1.0 01/04 STOOL Urobilinogen [facility] URINE AND UA Ketones Negative Negative 01/04 STOOL [facility] *NA* (01/04/14 9:00 AM) URINE AND UA Color Yellow Yellow 01/04 STOOL [facility] *NA* (01/04/14 9:00 AM) URINE AND UA Turbidity Clear Clear 01/04 STOOL [facility] (01/04/14 9:00 AM) URINE AND UA Spec Grav <=1.005 <=1.030 01/04 STOOL
*NA*< [facility] br/>( 9:00 AM) URINE AND UA pH 7.5 5.0 - 8.0 01/04 STOOL [facility] URINE AND UA Leuk Est Negative Negative 01/04 STOOL [facility] (01/04/14 9:00 AM) Abdomen/Pe Abdomen/Pelv CT Abdomen [...] g/dL 6.4 - 8.4 08/16 Normal MH [facility] CHEMISTRY Bili Total 0.2 [...] values reflect the clinical guidelines of the [place] [employer]. [facility] CHEMISTRY BUN 10 mg/dL 7 - 22 01/23 Normal [facility] CHEMISTRY Creatinine 1.0 mg/dL 0.5 - 1.4 01/23 Normal [facility] CHEMISTRY Potassium 3.6 meq/L 3.5 - 5.1 01/23 Normal [facility] CHEMISTRY Sodium Lvl 141 meq/L 135 - 145 01/23 Normal [facility] CHEMISTRY Chloride Lvl 108 meq/L 95 - 109 01/23 Normal [facility] CHEMISTRY AGAP 11.6 meq/L 10.0 - 01/23 Normal MH 20.0 [facility] CHEMISTRY B/C Ratio 10 6 - 25 01/23 Normal [facility] CHEMISTRY Globulin 3.2 g/dL 2.0 - 4.0 01/23 Normal [facility] CHEMISTRY A/G Ratio 1.1 0.7 - 1.6 01/23 Normal [facility] HEMATOLOGY Platelet 247 K/CMM 133 - 450 01/23 Normal [facility] HEMATOLOGY MPV 8.6 fL 7.4 - 10.4 01/23 Normal [facility] HEMATOLOGY RDW 14.9 % 11.5 - 01/23 HI MH 14.5 /2011 [facility] HEMATOLOGY MCHC 33.5 g/dL 32.0 - 01/23 Normal MH 36.0 [facility] HEMATOLOGY Hct 35.2 % 42.0 - 01/23 LOW MH 54.0 [facility] HEMATOLOGY MCV 85.8 fL 80.0 - 01/23 Normal MH 94.0 [facility] HEMATOLOGY MCH 28.7 pg 27.0 - 01/23 Normal MH 31.0 [facility] HEMATOLOGY RBC 4.10 M/CMM 4.70 - 01/23 LOW MH 6.10 [facility] HEMATOLOGY Hgb 11.8 g/dL 14.0 - 08 LOW 18.0 /2012 [facility] HEMATOLOGY WBC 4.1 K/CMM 3.7 - 10.4 / Normal /2011 [facility] HEMATOLOGY Basophils # 0.0 K/CMM 0.0 - 0.2 / Normal /2011 [facility] HEMATOLOGY Segs-Bands # 2.4 K/CMM 1.5 - 8.1 01/23 Normal /2011 [facility] HEMATOLOGY Lymphocytes 1.0 K/CMM 1.0 - 5.5 08/ Normal /2011 [facility] HEMATOLOGY Eosinophils 0.2 K/CMM 0.0 - 0.5 08/ Normal # /2011 [facility] HEMATOLOGY Monocytes # 0.4 K/CMM 0.0 - 0.8 01/23 Normal /2011 [facility] HEMATOLOGY Basophils 0.2 % 0.0 - 1.0 01/23 Normal /2011 [facility] HEMATOLOGY Segs 58.4 % 45.0 - 08 Normal 75.0 /2011 [facility] HEMATOLOGY Lymphocytes 25.2 % 20.0 - 08 Normal 40.0 [facility] HEMATOLOGY Monocytes 10.4 % 2.0 - 12.0 01/23 Normal [facility] HEMATOLOGY Eosinophils 5.8 % 0.0 - 4.0 08/ HI /2011 [facility] Vital Signs Vital Sign Value Date Comments Source Temperature Oral (F) 98.7 F 07/10/2016 [facility] Heart Rate 86 07/10/2016 [facility] Respitory Rate 15 07/10/2016 [facility] Systolic (mm Hg) 122 07/10/2016 [facility] Diastolic (mm Hg) 82 07/10/2016 [facility] Respitory Rate 18 07/10/2016 [facility] Heart Rate 87 07/10/2016 [facility] Systolic (mm Hg) 114 07/10/2016 [facility] Diastolic (mm Hg) 87 07/10/2016 [facility] Systolic (mm Hg) 134 07/10/2016 [facility] Diastolic (mm Hg) 95 07/10/2016 [facility] Heart Rate 98 07/10/2016 [facility] Respitory Rate 18 07/10/2016 [facility] Weight 90.909 07/10/2016 [facility] Temperature Oral (F) 99.0 F 07/10/2016 [facility] Respitory Rate 18 07/08/2016 [facility] Temperature Oral (F) 98.5 F 07/08/2016 [facility] Systolic (mm Hg) 134 07/08/2016 [facility] Diastolic (mm Hg) 94 07/08/2016 [facility] Heart Rate 79 07/08/2016 [facility] Systolic (mm Hg) 148 07/08/2016 [facility] Diastolic (mm Hg) 83 07/08/2016 [facility] Respitory Rate 20 07/08/2016 [facility] Heart Rate 81 07/08/2016 [facility] BMI Calculated 29.6 07/07/2016 [facility] Weight 90.909 07/07/2016 [facility] Temperature Oral (F) 98.1 F 07/07/2016 [facility] Height 175.26 cm 07/07/2016 [facility] Heart Rate 90 07/07/2016 [facility] Systolic (mm Hg) 139 07/07/2016 [facility] Diastolic (mm Hg) 90 07/07/2016 [facility] Respitory Rate 20 07/07/2016 [facility] Diastolic (mm Hg) 72 05/14/2014 [facility] Systolic (mm Hg) 105 05/14/2014 [facility] Respitory Rate 18 05/14/2014 [facility] Temperature Oral (F) 98.4 F 05/14/2014 [facility] Heart Rate 84 05/14/2014 [facility] Systolic (mm Hg) 100 05/14/2014 [facility] Diastolic (mm Hg) 63 05/14/2014 [facility] Heart Rate 75 05/14/2014 [facility] Temperature Oral (F) 97.8 F 05/14/2014 [facility] Respitory Rate 18 05/14/2014 [facility] Temperature Oral (F) 97.9 F 05/14/2014 [facility] Heart Rate 66 05/14/2014 [facility] Respitory Rate 17 05/14/2014 [facility] Systolic (mm Hg) 100 05/14/2014 [facility] Diastolic (mm Hg) 67 05/14/2014 [facility] Weight 100 05/13/2014 [facility] Height 175.26 cm 05/13/2014 [facility] BMI Calculated 32.56 05/13/2014 [facility] BMI Calculated 32.56 05/13/2014 [facility] Height 175.26 cm 05/13/2014 [facility] Dbisen [facility]itory [facility] 18 04/19/[facility]) 114 01/04/2014 [facility] Respitory Rate 18 01/04/2014 [facility] Diastolic (mm Hg) 69 01/04/2014 [facility] Diastolic (mm Hg) 68 01/04/2014 [facility] Heart Rate 83 01/04/2014 [facility] Respitory Rate 18 01/04/2014 [facility] Systolic (mm Hg) 115 01/04/2014 [facility] Heart Rate 91 01/04/2014 [facility] Respitory Rate 18 01/04/2014 [facility] BMI Calculated 32.56 01/04/2014 [facility] Height 175.26 cm 01/04/2014 [facility] Weight 100 01/04/2014 [facility] Temperature Oral (F) 98.4 F 01/04/2014 [facility] Diastolic (mm Hg) 81 01/04/2014 [facility] Systolic (mm Hg) 136 01/04/2014 [facility] Heart Rate 144 01/04/2014 [facility] Weight 100.000 01/24/2012 [facility] Height 175.26 cm 01/24/2012 [facility] Encounters Location Location Encounter Encounter Reason Attending ADM DC Status Source Details Type Number For Provider Date Date Visit Emergency [id number] SAMIR 01/23 01/23 Active [place] [facility] /2011 [facility] [place] [id number] Samir Johnsone 01/04 01/04 [place] [facility] /2013 [facility] Prachi Initial [id number] 04/19 04/19 Prachi Guzmán MD visit [id number] /2013 [facility] [id number] Prachi Initial [id number] 04/19 04/19 Prachi Guzmán MD visit [id number] /2013 [facility] [id number] Prachi Sick Visit [id number] 05/12 05/12 Prachi Guzmán MD - Follow up [id number] /2013 [facility] for [id number] multiple problems [facility] Inpatient [id number] Prachi 05/13 05/14 ARON Guzmán /2013 [facility] Emergency [id number] Coy 07/07 07/08 Zack Burt /2016 [facility] Emergency [id number] [place] 07/10 07/10 Zack Burt /2016 [facility] Outpatient [id number] Non 02/19 02/19 Zack Donohue /2016 [facility] Procedures Procedure Code Date Perfomer Comments Source Appendectomy [id number] [facility] Bladder [id number] pt reports [facility] operation<sup>1</sup> bladder was blistered Cholecystectomy [id number] [facility] Appendectomy [id number] [facility] Bladder [id number] pt reports [facility] operation<sup>1</sup> bladder was blistered Cholecystectomy [id number] [facility]
--- OUTSIDE RECORDS SUMMARY | 2018-09-16 18:41 | XMS REPORT | CCD ---
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
--- OUTSIDE RECORDS SUMMARY | 2018-09-16 18:42 | XMS REPORT ---
[...] End Status Dosage Date Date Topiramate MEDISPAN 81836-43 25 MG Orally Apr 19, Active 1 tablet 55-06 twice a day 2013 (bid) Seroquel MEDISPAN 17331-80 50 mg Orally Active 1 tablet 78-10 Once a day at bedtime Lisinopril MEDISPAN 86655-45 20 MG Orally Inactive 1 tablet 68-01 Once a day Clonidine HCl MEDISPAN 55586-87 0.1 MG Orally Apr 19, Active 1 tablet 27-10 twice a day 2013 at bedtime (bid) Tramadol HCl MEDISPAN 43819-07 50 mg Orally May 19, Active 1 or 2 58-01 every 6 hrs for 2013 tablet headache Xanax MEDISPAN 69679-32 2 MG Orally Active 1/2 tablet 94-01 three times a in am and day (tid) noon, 1 tablet at bedtime Singulair MEDISPAN 80108-69 10 MG Orally Active 1 tablet 17-01 Once a day in the evening Protonix MEDISPAN 36182-33 40 mg Orally Active 1 tablet 41-81 once a day Cymbalta MEDISPAN 19942-03 90 Orally Once a Active 1 capsule 40-01 day [facility] 43751-93 250 Orally once Active 1 tablet 99-00 [...]
--- OUTSIDE RECORDS SUMMARY | 2018-09-16 18:42 | XMS REPORT ---
:1970 [facility] [place] [address] Care Team Providers Name Role Phone NOÉ WHITE Unavailable Unavailable Problems This patient has no [...] MDReport Verified Date/Time: 2017 07:15:04 Reading Location: [facility] [id number] Neuro Reading Room ESIUM 2017 06:19:00 Test Item Value Reference Range Comments MAGNESIUM (BEAKER) (test kjjo=753) 2.6 mg/dL 1.6-2.6 BASIC METABOLIC [id number] 06:19:00 Test Item Value Reference Range Comments SODIUM (BEAKER) (test 136 meq/L 136-145 yhim=008) POTASSIUM (BEAKER) (test 4.6 meq/L 3.5-5.1 pmwc=481) CHLORIDE (BEAKER) (test 107 meq/L 98-107 mjoo=016) CO2 (BEAKER) (test 23 meq/L 22-29 jaos=059) BLOOD UREA NITROGEN 13 mg/dL 7-21 (BEAKER) (test yely=159) CREATININE (BEAKER) (test 0.81 mg/dL 0.57-1.25 jdof=375) GLUCOSE RANDOM (BEAKER) 92 mg/dL 70-105 (test dnpf=294) CALCIUM (BEAKER) (test 9.3 mg/dL 8.4-10.2 ayco=979) EGFR (BEAKER) (test 103 mL/min/1.73 sq m ESTIMATED GFR IS NOT hbbg=8636) ACCURATE CREATININE CLEARANCE IN PREDICTING GLOMERULAR FILTRATION RATE. ESTIMATED GFR IS NOT APPLICABLE FOR DIALYSIS PATIENTS. CBC W/PLT COUNT & AUTO [id number] 05:45:00 Test Item Value Reference Range Comments WHITE BLOOD CELL COUNT (BEAKER) (test jujj=271) 6.2 K/ L 3.5-10.5 RED BLOOD CELL COUNT (BEAKER) (test sywj=459) 4.22 M/ L 4.63-6.08 HEMOGLOBIN (BEAKER) (test ngux=415) 13.0 GM/DL 13.7-17.5 HEMATOCRIT (BEAKER) (test rucr=680) 40.2 % 40.1-51.0 MEAN CORPUSCULAR VOLUME (BEAKER) (test cdcd=244) 95.3 fL 79.0-92.2 MEAN CORPUSCULAR HEMOGLOBIN (BEAKER) (test 30.8 pg 25.7-32.2 bdlr=732) MEAN CORPUSCULAR HEMOGLOBIN CONC (BEAKER) (test 32.3 GM/DL 32.3-36.5 uzsj=006) RED CELL DISTRIBUTION WIDTH (BEAKER) (test 13.2 % 11.6-14.4 wbud=039) PLATELET COUNT (BEAKER) (test cxqr=693) 212 K/CU MM 150-450 MEAN PLATELET VOLUME (BEAKER) (test cbpd=046) 10.4 fL 9.4-12.4 NUCLEATED RED BLOOD CELLS (BEAKER) (test 0 /100 WBC 0-0 tmnc=972) NEUTROPHILS RELATIVE PERCENT (BEAKER) (test 53 % tpdb=088) LYMPHOCYTES RELATIVE PERCENT (BEAKER) (test 31 % rbxs=828) MONOCYTES RELATIVE PERCENT (BEAKER) (test 8 % fkep=006) EOSINOPHILS RELATIVE PERCENT (BEAKER) (test 7 % eqro=581) BASOPHILS RELATIVE PERCENT (BEAKER) (test 1 % ujox=363) NEUTROPHILS ABSOLUTE COUNT (BEAKER) (test 3.28 K/ L 1.78-5.38 fijw=405) LYMPHOCYTES ABSOLUTE COUNT (BEAKER) (test 1.94 K/ L 1.32-3.57 iryu=065) MONOCYTES ABSOLUTE COUNT (BEAKER) (test 0.49 K/ L 0.30-0.82 gnoo=329) EOSINOPHILS ABSOLUTE COUNT (BEAKER) (test 0.43 K/ L 0.04-0.54 wajx=659) BASOPHILS ABSOLUTE COUNT (BEAKER) (test 0.05 K/ L 0.01-0.08 jpbn=111) IMMATURE GRANULOCYTES-RELATIVE PERCENT (BEAKER) 0 % 0-1 (test stra=8509) TSH/FREE T4 IF [id number] 07:06:00 Test Item Value Reference Range Comments THYROID STIMULATING HORMONE (BEAKER) (test 2.05 uIU/mL 0.35-4.94 eqzq=086) [id number] 07:03:00 Test Item Value Reference Range Comments MAGNESIUM (BEAKER) (test xgjj=797) 2.8 mg/dL 1.6-2.6 BASIC METABOLIC [id number] 07:03:00 Test Item Value Reference Range Comments SODIUM (BEAKER) (test 137 meq/L 136-145 mssy=710) POTASSIUM (BEAKER) (test 4.1 meq/L 3.5-5.1 hmww=437) CHLORIDE (BEAKER) (test 103 meq/L 98-107 yovb=989) CO2 (BEAKER) (test 28 meq/L 22-29 ycqg=401) BLOOD UREA NITROGEN 15 mg/dL 7-21 (BEAKER) (test oxrb=722) CREATININE (BEAKER) (test 0.97 mg/dL 0.57-1.25 ogyp=843) GLUCOSE RANDOM (BEAKER) 92 mg/dL 70-105 (test czwe=520) CALCIUM (BEAKER) (test 9.4 mg/dL 8.4-10.2 daap=229) EGFR (BEAKER) (test 83 mL/min/1.73 sq m ESTIMATED GFR IS NOT ihed=3457) ACCURATE CREATININE CLEARANCE IN PREDICTING GLOMERULAR FILTRATION RATE. ESTIMATED GFR IS NOT APPLICABLE FOR DIALYSIS PATIENTS. [id number] 07:03:00 Test Item Value Reference Range Comments LIPASE (BEAKER) (test aipx=320) 96 U/L 8-78 LITHIUM [id number] 06:45:00 Test Item Value Reference Range Comments LITHIUM LEVEL (BEAKER) (test bpaw=380) 0.6 mmol/L 0.8-1.2 CBC W/PLT COUNT & AUTO [id number] 06:37:00 Test Item Value Reference Range Comments WHITE BLOOD CELL COUNT (BEAKER) (test fmld=648) 4.8 K/ L 3.5-10.5 RED BLOOD CELL COUNT (BEAKER) (test hxqz=885) 4.37 M/ L 4.63-6.08 HEMOGLOBIN (BEAKER) (test kknj=524) 13.1 GM/DL 13.7-17.5 HEMATOCRIT (BEAKER) (test bclo=121) 41.9 % 40.1-51.0 MEAN CORPUSCULAR VOLUME (BEAKER) (test lxzz=607) 95.9 fL 79.0-92.2 MEAN CORPUSCULAR HEMOGLOBIN (BEAKER) (test 30.0 pg 25.7-32.2 bqtm=409) MEAN CORPUSCULAR HEMOGLOBIN CONC (BEAKER) (test 31.3 GM/DL 32.3-36.5 vzdf=779) RED CELL DISTRIBUTION WIDTH (BEAKER) (test 13.2 % 11.6-14.4 rtxx=411) PLATELET COUNT (BEAKER) (test pmhk=975) 217 K/CU MM 150-450 MEAN PLATELET VOLUME (BEAKER) (test jgyh=606) 9.8 fL 9.4-12.4 NUCLEATED RED BLOOD CELLS (BEAKER) (test 0 /100 WBC 0-0 hruj=734) NEUTROPHILS RELATIVE PERCENT (BEAKER) (test 47 % uzjc=944) LYMPHOCYTES RELATIVE PERCENT (BEAKER) (test 31 % gkyu=393) MONOCYTES RELATIVE PERCENT (BEAKER) (test 11 % aann=777) EOSINOPHILS RELATIVE PERCENT (BEAKER) (test 9 % cqhz=524) BASOPHILS RELATIVE PERCENT (BEAKER) (test 1 % ckap=064) NEUTROPHILS ABSOLUTE COUNT (BEAKER) (test 2.26 K/ L 1.78-5.38 fvqj=890) LYMPHOCYTES ABSOLUTE COUNT (BEAKER) (test 1.51 K/ L 1.32-3.57 xefi=704) MONOCYTES ABSOLUTE COUNT (BEAKER) (test 0.55 K/ L 0.30-0.82 fpyv=173) EOSINOPHILS ABSOLUTE COUNT (BEAKER) (test 0.43 K/ L 0.04-0.54 ccgh=509) BASOPHILS ABSOLUTE COUNT (BEAKER) (test 0.05 K/ L 0.01-0.08 cisw=937) IMMATURE GRANULOCYTES-RELATIVE PERCENT (BEAKER) 0 % 0-1 (test qbwb=0363)
--- OUTSIDE RECORDS SUMMARY | 2018-09-16 18:42 | XMS REPORT ---
:1970 [facility] Care Team Providers Name Role Prachi Elder [...] End Status Dosage Date Date Xanax MEDISPAN 73107-78 2 MG Orally Active 1/2 tablet 94-01 three times a in am and day (tid) noon, 1 tablet at bedtime Lamictal MEDISPAN 10341-95 250 Orally once Active 1 tablet 99-00 every night [facility]02 0.1 MG Orally Apr 19, Active 1 tablet 27-10 twice a day 2013 at bedtime (bid) Cymbalta MEDISPAN 10726-86 90 Orally Once a Active 1 capsule 40-01 day [place] MEDISPAN 58999-80 10-325 MG Orally May 12, May 27, Active 1 tablet 80-73 every 6 hrs 2013 2013 as needed Dexilant [facility] 45720-00 30 MG Orally May 12, Active 1 capsule 66-30 Once a day 2013 Singulair MEDISPAN 86860-80 10 MG Orally Active 1 tablet 17-01 Once a day in the evening Tramadol HCl MEDISPAN 00933-67 50 mg Orally May 19, Active 1 or 2 58-01 every 6 hrs for 2014 tablet headache [facility]92 25 MG Orally Apr 19, Active 1 tablet 55-06 twice a day 2013 (bid) Metronidazole MEDISPAN 09066-60 500 mg Orally May 12May 22, Active 1 tablet 32-04 Three times a 2013 2013 day Protonix MEDISPAN 93053-90 40 mg Orally Inactive 1 tablet 41-81 once a day Seroquel MEDISPAN 08815-78 50 mg Orally Active 1 tablet 78-10 Once a day at bedtime Cipro MEDISPAN 32415-22 500 mg Orally May 12May 22, Active [...]
[2018-09-16] MEDS ORDERED: MORPHINE 4 MG/ML SYR ONE (19:02)
[2018-09-16] MEDS ORDERED: NA CHLORIDE 0.9% 2,000 ML ONE (19:03)
[2018-09-16] MEDS ORDERED: ONDANSETRON 4 MG/2 ML VIAL ONE (19:03)
[2018-09-16] MEDS ORDERED: FAMOTIDINE 20 MG/2 ML VIAL IV ONE (19:03)
[2018-09-16 19:11] LABS: Absolute Lymphocytes (CBC) 2.1 K/uL (0.7-4.9); Absolute Monocytes 0.6 K/uL (0.1-1.3); Absolute Neutrophil 3.1 K/uL (1.8-8.0); Basophils % 1.2 % (0-1.3); Eosinophils % 8.1 % (0-4.4); Hematocrit 42.3 % (39.6-49.0); Lymphocytes % 33.2 % (15.3-44.8); MPV 8.1 fL (7.6-11.3); Monocytes % 9.1 % (3.3-12.3); RBC Red Blood Cell Count 4.53 M/uL (4.33-5.43)
[2018-09-16 19:29] LABS: ALT/SGPT 28 U/L (12-78); AST/SGOT 18 U/L (15-37); Albumin 4.1 g/dL (3.4-5.0); Alkaline Phosphatase 74 U/L (45-117); BUN Blood Urea Nitrogen 7 mg/dL (7-18); Bicarbonate 28 mmol/L (21-32); Bilirubin Direct < 0.1 mg/dL (0-0.2); Bilirubin Total 0.2 mg/dL (0.2-1.0); Glucose Level 106 mg/dL (74-106); Lipase 242 U/L (73-393); Potassium 3.6 mmol/L (3.5-5.1); Protein, Total 7.6 g/dL (6.4-8.2); Sodium Level 141 mmol/L (136-145)
[2018-09-16] MEDS ORDERED: DIPHENHYDRAMINE 50 MG/ML VIAL ONE (20:37)
[2018-09-16] MEDS ORDERED: PROMETHAZINE 25 MG/ML VIAL ONE (20:37)
[2018-09-16] MEDS ORDERED: HYDROMORPHONE HCL 1 MG/ML INJ ONE (21:06)
--- NOTE | 2018-09-16 21:43 | EDPHYS ---
Physician Documentation [facility] Name: Thong Fuchs Jr Age: 47 yrs Sex: Male : 1970 Arrival Date: 09/16/2018 Time: 18:34 Bed 16 Private MD: ED Physician Jarocho Ruby HPI: 09/16 19:05 This 47 yrs old Male presents to ER via Ambulatory with complaints of ma2 Pancreatitis. 19:05 The patient presents with abdominal pain. Onset: The symptoms/episode began/occurred ma2 gradually, 1 day(s) ago. Associated signs and symptoms: Pertinent positives: abd pain, Pertinent negatives: nausea and vomiting, blood in stools, constipation, diarrhea, testicular pain, vomiting blood. The symptoms are described as crampy. Severity of pain: At its worst the pain was moderate in the emergency department the pain is unchanged. The patient has not experienced similar symptoms in the past. Historical: - Allergies: 18:40 Bactrim; aa5 18:40 Compazine; aa5 18:40 Reglan; "causes anxiety"; aa5 18:40 Sulfa (Sulfonamide Antibiotics); aa5 - Home Meds: 18:43 Lamictal Oral [Active]; lamotrigine 200 mg Oral tab 2 tabs once daily [Active]; lithium tw2 carbonate 600 mg Oral cap 1 cap at bedtime [Active]; lorazepam 2 mg Oral tab 1 tab 2 times per day [Active]; omeprazole 40 mg Oral cpDR 2 times per day [Active]; quetiapine 200 mg Oral tab once daily [Active]; venlafaxine 150 mg Oral cp24 once daily [Active]; - PMHx: 18:40 Anxiety; Depression; guillain barre; Hypertension; PANCREATIC CALCIFICATION; aa5 Pancreatitis; - PSHx: 18:40 Appendectomy; rebecca foot; left wrist; Cholecystectomy; aa5 - Immunization history:: Flu vaccine is not up to date. - Social history:: Smoking status: Patient uses tobacco products, smokes one-half pack cigarettes per day, Patient/guardian denies using alcohol, street drugs, The patient lives with family. - Ebola Screening: : No symptoms or risks identified at this time. - Family history:: not pertinent. ROS: 19:05 Constitutional: Negative for fever, chills, and weight loss. ma2 19:05 Abdomen/GI: Positive for abdominal pain, Negative for nausea and vomiting, nausea, diarrhea, constipation, abdominal distension, rectal bleeding, bowel incontinence, flatulence. 19:05 All other systems are negative. Exam: 19:05 Constitutional: This is a well developed, well nourished patient who is awake, alert, ma2 and in no acute distress. Chest/axilla: Normal chest wall appearance and motion. Nontender with no deformity. No lesions are appreciated. Cardiovascular: Regular rate and rhythm with a normal S1 and S2. No gallops, murmurs, or rubs. Normal PMI, no JVD. No pulse deficits. Respiratory: Lungs have equal breath sounds bilaterally, clear to auscultation and percussion. No rales, rhonchi or wheezes noted. No increased work of breathing, no retractions or nasal flaring. Abdomen/GI: Soft, non-tender, with normal bowel sounds. No distension or tympany. No guarding or rebound. No evidence of tenderness throughout. MS/ Extremity: Pulses equal, no cyanosis. Neurovascular intact. Full, normal range of motion. Neuro: Awake and alert, GCS 15, oriented to person, place, time, and situation. Cranial nerves II-XII grossly intact. Motor strength 5/5 in all extremities. Sensory grossly intact. Cerebellar exam normal. Normal gait. Vital Signs: 18:40 BP 143 / 88; Pulse 88; Resp 16 S; Temp 98.8(TE); Pulse Ox 100% on R/A; Weight 74.84 kg aa5 (R); Height 5 ft. 9 in. (175.26 cm) (R); Pain 7/10; 19:25 BP 141 / 80; Pulse 85; Resp 17; Temp 98.5; Pulse Ox 99% ; Pain 7/10; rr5 20:30 BP 135 / 75; Pulse 80; Resp 17; Pulse Ox 99% ; rr5 21:30 BP 131 / 70; Pulse 79; Resp 19; Pulse Ox 98% ; rr5 21:56 BP 115 / 76; Pulse 75; Resp 17; Pulse Ox 99% ; rr5 18:40 Body Mass Index 24.37 (74.84 kg, 175.26 cm) aa5 MDM: 18:43 Patient medically screened. ma2 19:05 Differential diagnosis: gastritis, gastroesophageal reflux disease, pancreatitis. ma2 21:42 Data reviewed: vital signs, nurses notes. Counseling: I had a detailed discussion with [facility] the patient and/or guardian regarding: the historical points, exam findings, and any diagnostic results supporting the discharge/admit diagnosis, the presence of at least one elevated blood pressure reading (>120/80) during this emergency department visit, the need for outpatient follow up. Response to treatment: the patient's symptoms have resolved after treatment. 09/16 18:45 Order name: Basic Metabolic Panel; Complete Time: 19:59 il2 09/16 18:45 Order name: CBC with Diff; Complete Time: 19:59 il2 09/16 18:45 Order name: Creatinine for Radiology; Complete Time: 19:59 [facility] 09/16 18:45 Order name: Hepatic Function; Complete Time: 19:59 il2 09/16 18:45 Order name: Lipase; Complete Time: 19:59 il2 09/16 18:45 Order name: IV Saline Lock; Complete Time: 19:39 [facility] 09/16 18:45 Order name: Labs collected and sent; Complete Time: 19:04 [facility] Administered Medications: 19:30 Drug: NS 0.9% 2000 ml Route: IV; Rate: 1 bolus; Site: right forearm; rr5 21:58 Follow up: Response: No adverse reaction; IV Status: Completed infusion; IV Intake: rr5 2000ml 19:31 Drug: Zofran 4 mg Route: IVP; Site: right forearm; rr5 21:58 Follow up: Response: No adverse reaction rr5 19:33 Drug: Pepcid 20 mg Route: IVP; Site: right forearm; rr5 21:58 Follow up: Response: No adverse reaction rr5 19:35 Drug: morphine 4 mg Route: IVP; Site: right forearm; rr5 21:58 Follow up: Response: No adverse reaction rr5 20:30 Drug: Benadryl 50 mg Route: IVP; Site: right forearm; rr5 21:58 Follow up: Response: No adverse reaction rr5 20:33 Drug: Phenergan 12.5 mg Route: IVP; Site: right forearm; rr5 21:57 Follow up: Response: No adverse reaction rr5 20:37 CANCELLED (Other Intervention Used): metoCLOPramide 20 mg IVP once; over 15 mins rr5 20:58 Drug: Dilaudid 1 mg Route: IVP; Site: right forearm; rr5 21:57 Follow up: Response: No adverse reaction rr5 Disposition: 09/16/18 21:42 Discharged to Home. Impression: Upper abdominal pain, unspecified. - Condition is Stable. - Discharge Instructions: Abdominal Pain, Adult. - Prescriptions for Tylenol- Codeine #3 300-30 mg Oral Tablet - take 2 tablet by ORAL route every 6 hours As needed; 30 tablet. Zofran 4 mg Oral Tablet - take 1 tablet by ORAL route every 12 hours As needed; 20 tablet. - Medication Reconciliation Form, Thank You Letter, Antibiotic Education, Prescription Opioid Use form. - Follow up: Private Physician; When: Tomorrow; Reason: Continuance of care. Signatures: Dispatcher [employer] EDNilsa Starr, RN RN aa5 Sonali Cole RN RN tw2 Jarocho Ruby MD MD ma2 Charlie Carmona RN RN rr5 Corrections: (The following items were deleted from the chart) 20:37 20:00 metoCLOPramide 20 mg IVP once; over 15 mins ordered. il2 rr5 21:59 21:42 09/16/2018 21:42 Discharged to Home. Impression: Upper abdominal pain, rr5 unspecified. Condition is Stable. Forms are Medication Reconciliation Form, Thank You Letter, Antibiotic Education, Prescription Opioid Use. Follow up: Private Physician; When: Tomorrow; Reason: Continuance of care. il2
--- NOTE | 2018-09-16 21:43 | ER ---
Nurse's Notes [facility] Name: Thong Fuchs Jr Age: 47 yrs Sex: Male : 1970 Arrival Date: 09/16/2018 Time: 18:34 Bed 16 Private MD: Diagnosis: Upper abdominal pain, unspecified Presentation: 09/16 18:38 Presenting complaint: Patient states: "I have chronic pancreatitis and I started aa5 vomiting yesterday so I can't keep any of my pain medicine, anxiety medicine down". Transition of care: patient was not received from another setting of care. Onset of symptoms was September 2018. Risk Assessment: Do you want to hurt yourself or someone else? Patient reports no desire to harm self or others. Initial Sepsis Screen: Does the patient meet any 2 criteria? No. Patient's initial sepsis screen is negative. Does the patient have a suspected source of infection? No. Patient's initial sepsis screen is negative. Care prior to arrival: None. 18:38 Method Of Arrival: Ambulatory aa5 18:38 Acuity: LILO 3 aa5 Historical: - Allergies: 18:40 Bactrim; aa5 18:40 Compazine; aa5 18:40 Reglan; "causes anxiety"; aa5 18:40 Sulfa (Sulfonamide Antibiotics); aa5 - Home Meds: 18:43 Lamictal Oral [Active]; lamotrigine 200 mg Oral tab 2 tabs once daily [Active]; lithium tw2 carbonate 600 mg Oral cap 1 cap at bedtime [Active]; lorazepam 2 mg Oral tab 1 tab 2 times per day [Active]; omeprazole 40 mg Oral cpDR 2 times per day [Active]; quetiapine 200 mg Oral tab once daily [Active]; venlafaxine 150 mg Oral cp24 once daily [Active]; - PMHx: 18:40 Anxiety; Depression; guillain barre; Hypertension; PANCREATIC CALCIFICATION; aa5 Pancreatitis; - PSHx: 18:40 Appendectomy; rebecca foot; left wrist; Cholecystectomy; aa5 - Immunization history:: Flu vaccine is not up to date. - Social history:: Smoking status: Patient uses tobacco products, smokes one-half pack cigarettes per day, Patient/guardian denies using alcohol, street drugs, The patient lives with family. - Ebola Screening: : No symptoms or risks identified at this time. - Family history:: not pertinent. Screenin:42 Abuse screen: Denies threats or abuse. Nutritional screening: No deficits noted. tw2 Tuberculosis screening: No symptoms or risk factors identified. Fall Risk None identified. Assessment: 19:00 General: Appears in no apparent distress. uncomfortable, Behavior is calm, cooperative, rr5 appropriate for age. Pain: Complains of pain in left upper quadrant Pain radiates to back Pain currently is 7 out of 10 on a pain scale. Quality of pain is described as aching, Pain began gradually, Is intermittent. Neuro: Level of Consciousness is awake, alert, obeys commands, Oriented to person, place, time, situation. 19:00 Reassessment: for IV insertion, patient is a hard stick. Cardiovascular: Capillary rr5 refill < 3 seconds Patient's skin is warm and dry. Respiratory: Airway is patent Respiratory effort is even, unlabored, Respiratory pattern is regular, symmetrical. GI: Abdomen is flat, Reports upper abdominal pain. : No signs and/or symptoms were reported regarding the genitourinary system. EENT: No signs and/or symptoms were reported regarding the EENT system. Derm: Skin is intact, Skin temperature is warm. Musculoskeletal: Circulation, motion, and sensation intact. Capillary refill < 3 seconds, Range of motion: intact in all extremities. 20:00 Reassessment: Patient appears in no apparent distress at this time. No changes from rr5 previously documented assessment. 20:30 Reassessment: Patient appears in no apparent distress at this time. No changes from rr5 previously documented assessment. still complaining of pain and nausea. ED provider aware with order made and carried out. 21:30 Reassessment: Patient appears in no apparent distress at this time. Patient is alert, rr5 oriented x 3, equal unlabored respirations, skin warm/dry/pink. Patient states feeling better. Patient states symptoms have improved. 21:54 Reassessment: Patient appears in no apparent distress at this time. Patient is alert, rr5 oriented x 3, equal unlabored respirations, skin warm/dry/pink. discharge instruction given and explained without complaints made. Patient states feeling better. Patient states symptoms have improved. 22:00 Reassessment: discharge instruction left on bed by the patient. form attached to chart. rr5 Vital Signs: 18:40 BP 143 / 88; Pulse 88; Resp 16 S; Temp 98.8(TE); Pulse Ox 100% on R/A; Weight 74.84 kg aa5 (R); Height 5 ft. 9 in. (175.26 cm) (R); Pain 7/10; 19:25 BP 141 / 80; Pulse 85; Resp 17; Temp 98.5; Pulse Ox 99% ; Pain 7/10; rr5 20:30 BP 135 / 75; Pulse 80; Resp 17; Pulse Ox 99% ; rr5 21:30 BP 131 / 70; Pulse 79; Resp 19; Pulse Ox 98% ; rr5 21:56 BP 115 / 76; Pulse 75; Resp 17; Pulse Ox 99% ; rr5 18:40 Body Mass Index 24.37 (74.84 kg, 175.26 cm) aa5 ED Course: 18:34 Patient arrived in ED. as 18:38 Arm band placed on. aa5 18:39 Triage completed. aa5 18:41 Bed in low position. Call light in reach. Pulse ox on. NIBP on. tw2 18:43 Jarocho Ruby MD is Attending Physician. ma2 19:03 Missed attempt(s): 22 gauge in right forearm. Bleeding controlled, band aid applied, tw2 catheter tip intact. Missed attempt(s): 22 gauge in left forearm. per pastora pérez. Bleeding controlled, band aid applied, catheter tip intact. 19:06 Missed attempt(s): 22 gauge in left. mh5 19:10 Report given to JESSA Guerra - OUTSTANDING -iv line needed, blood has been sent, need iv tw2 line at this time, medications given to Charlie in vials to be administered at this time. 19:30 Inserted saline lock: 22 gauge in right forearm, using aseptic technique. rr5 19:33 Charlie Carmona RN is Primary Nurse. rr5 21:56 No provider procedures requiring assistance completed. IV discontinued, intact, rr5 bleeding controlled, No redness/swelling at site. Pressure dressing applied. Administered Medications: 19:30 Drug: NS 0.9% 2000 ml Route: IV; Rate: 1 bolus; Site: right forearm; rr5 21:58 Follow up: Response: No adverse reaction; IV Status: Completed infusion; IV Intake: rr5 2000ml 19:31 Drug: Zofran 4 mg Route: IVP; Site: right forearm; rr5 21:58 Follow up: Response: No adverse reaction rr5 19:33 Drug: Pepcid 20 mg Route: IVP; Site: right forearm; rr5 21:58 Follow up: Response: No adverse reaction rr5 19:35 Drug: morphine 4 mg Route: IVP; Site: right forearm; rr5 21:58 Follow up: Response: No adverse reaction rr5 20:30 Drug: Benadryl 50 mg Route: IVP; Site: right forearm; rr5 21:58 Follow up: Response: No adverse reaction rr5 20:33 Drug: Phenergan 12.5 mg Route: IVP; Site: right forearm; rr5 21:57 Follow up: Response: No adverse reaction rr5 20:37 CANCELLED (Other Intervention Used): metoCLOPramide 20 mg IVP once; over 15 mins rr5 20:58 Drug: Dilaudid 1 mg Route: IVP; Site: right forearm; rr5 21:57 Follow up: Response: No adverse reaction rr5 Intake: 21:58 IV: 2000ml; Total: 2000ml. rr5 Outcome: 21:42 Discharge ordered by . ma2 21:56 Discharged to home ambulatory, with family. rr5 21:56 Condition: stable 21:56 Discharge instructions given to patient, Instructed on discharge instructions, follow up and referral plans. medication usage, Demonstrated understanding of instructions, follow-up care, medications, Prescriptions given X 2. 21:59 Patient left the ED. rr5 Signatures: Iram Waterman Audri, RN RN aa5 Sonali Cole RN RN 2 Corina Waterman Mohammad, MD MD ma2 Charlie Carmona RN RN rr5
[2018-09-16 22:07] VITALS: TEMP 98.5
[2018-09-16 22:11] VITALS: BP 115/76; O2SAT 99
== END 2018-09-16 21:59 | disposition home or self-care (01) ==
LOC: ER 18:33
DX: R10.10 Upper abdominal pain, unspecified (principal); F17.210 Nicotine dependence, cigarettes, uncomplicated; I10 Essential (primary) hypertension; F41.9 Anxiety disorder, unspecified; F32.9 Major depressive disorder, single episode, unspecified; Z88.1 Allergy status to other antibiotic agents; Z88.2 Allergy status to sulfonamides; Z88.8 Allergy status to other drugs, medicaments and biological substances
CPT/HCPCS: 36415; 80048; 80076; 83690; 85025; J1170; J2405; J2550; J7030

== ENCOUNTER 2018-10-07 16:42 | Emergency (ER) | payer SELFPAY ==
--- OUTSIDE RECORDS SUMMARY | 2018-10-07 16:45 | XMS REPORT | Clinical Summary ---
:1970 Author Organization [facility] Address [address] [place] [address] Care Team Providers Name Role Phone Monroe [...] depressive disorder, in remission 12/04/2017 History of Guillain-Aston syndrome 12/04/2017 Chronic pancreatitis 12/04/2017 Gait abnormality 12/04/2017 Encounters Date Type Specialty Care Team Description 12/04/2017 - Hospital Encounter General Internal Griselda Luna Anxiety; 2017 Darren Portillo MD Chronic pancreatitis, unspecified pancreatitis type (HCC); Gaby Burkett Dizziness; Anjelica Elder, Gait abnormality; History of Guillain-Aston syndrome; Yonatan, Recurrent major depressive disorder, in remission (HCC); MD Yvette Unsteady gait; Bipolar depression (HCC) after 10/06/2017 Family History Medical History Relation Name Comments [...] procedure are in the results section. after 10/06/2017 Results EKG-SCANNED (12/09/2017 1:44 PM CDT) Narrative Performed At MR brain without IV contrast (2017 5:32 AM CDT) Specimen Narrative Performed At FINAL REPORT [facility] MRI brain without contrast INDICATION: Lightheadedness, [...] MD Report Verified Date/Time:2017 07:15:04 Reading Location: [address] Neuro Reading Room Procedure Note Interface, [...] Report Verified Date/Time: 2017 07:15:04 Reading Location: [address] Neuro Reading Room Performing Organization Address City/State/Zipcode Phone Number GE RIS CBC with platelet count + automated diff (2017 4:48 AM CDT)Only the most recent of2 resultswithin the time period is included. WBC 6.2 3.5 - 10.5 K/L [facility] RBC 4.22 (L) 4.63 - 6.08 M/L [facility] Hemoglobin 13.0 (L) 13.7 - 17.5 GM/DL [facility] Hematocrit 40.2 40.1 - 51.0 % [facility] MCV 95.3 (H) 79.0 - 92.2 fL [facility] MCH 30.8 25.7 - 32.2 pg [facility] MCHC 32.3 32.3 - 36.5 GM/DL [facility] RDW 13.2 11.6 - 14.4 % [facility] Platelets 212 150 - 450 K/CU MM [facility] MPV 10.4 9.4 - 12.4 fL [facility] nRBC 0 0 - 0 /100 WBC [facility] % Neutros 53 % [facility] % Lymphs 31 % [facility] % Monos 8 % [facility] % Eos 7 % [facility] % Baso 1 % [facility] # Neutros 3.28 1.78 - 5.38 K/L [facility] # Lymphs 1.94 1.32 - 3.57 K/L [facility] # Monos 0.49 0.30 - 0.82 K/L [facility] # Eos 0.43 0.04 - 0.54 K/L [facility] # Baso 0.05 0.01 - 0.08 K/L [facility] Immature Granulocytes-Relative 0 0 - 1 % [facility] Specimen Blood Performing Organization Address City/[facility]/Zipcode Phone Number [address] [address] [place] Magnesium (2017 4:48 AM CDT)Only the most recent of2 resultswithin the time period is included. Magnesium 2.6 1.6 - 2.6 mg/dL [facility] Specimen Blood Performing Organization Address City/State/Zipcode Phone Number [address] [address] [phone] [place] Basic metabolic panel (2017 4:48 AM CDT)Only the most recent of2 resultswithin the time period is included. Sodium 136 136 - 145 meq/L [facility] Potassium 4.6 3.5 - 5.1 meq/L [facility] Chloride 107 98 - 107 meq/L [facility] CO2 23 22 - 29 meq/L [facility] BUN 13 7 - 21 mg/dL [facility] Creatinine 0.81 0.57 - 1.25 mg/dL [facility] Glucose 92 70 - 105 mg/dL [facility] Calcium 9.3 8.4 - 10.2 mg/dL [facility] EGFR 103Comment: ESTIMATED GFR IS mL/min/1.73 sq m [facility] NOT ACCURATE CREATININE [facility] CLEARANCE IN PREDICTING GLOMERULAR FILTRATION RATE. ESTIMATED GFR IS NOT APPLICABLE FOR DIALYSIS PATIENTS. Specimen Blood Performing Organization Address City/[facility]/Zipcode Phone Number [address] [address] [phone] CENTER TSH/Free T4 If Indicated (12/05/2017 5:42 AM CDT) TSH 2.05 0.35 - 4.94 uIU/mL [facility] Specimen Blood Performing Organization Address [facility] Phone Number [address] [address] [phone] CENTER Lipase (12/05/2017 5:42 AM CDT) Lipase 96 (H) 8 - 78 U/L [facility] Specimen Blood Performing Organization Address City/[facility] Phone Number [address] [address] CENTER [place] level (12/05/2017 5:42 AM CDT) [place] Level 0.6 (L) 0.8 - 1.2 mmol/L [facility] Specimen Blood Performing Organization Address [facility] Phone Number [address] [address] CENTER after 10/06/2017 Advance Directives For more information, please contact:[address] [phone] Code Status Date Activated Date Inactivated Comments Full Code 12/04/2017 8:31 PM 2017 5:00 PM This code status was determined by: Patient
--- OUTSIDE RECORDS SUMMARY | 2018-10-07 16:49 | XMS REPORT | Continuity of Care Document ---
:1970 Author Organization Interface Problems Problem Status Onset Classification Date Comments Source Date Reported ABDOMINAL PAIN Active 02/19/20 [facility] [place] 07/10/19 07/13/2016 [facility] Diagnosis: 17 Generalized abdominal pain LOWER ABD PAIN Active 05/13/20 [place] 14 ABD PAIN, Active 05/13/20 [facility] POSSIBLE ACUTE 14 DIVERTICULITIS Discharge 01/05/20 01/07/2014 [facility] Diagnosis: 14 Abdominal pain NAUSEA OR Active 01/24/20 [facility] VOMITING/ABD PAIN 12 Abdominal pain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 02/21/2017 [facility] Anxiety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 02/21/2017 [facility] Anxiety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 02/21/2017 depression [facility] Depression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 02/21/2017 [facility] 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 [facility] Guillain[place]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 02/21/2017 [facility] Nausea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 02/21/2017 [facility] Pancreatitis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 02/21/2017 [facility] Pancreatitis,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 02/21/2017 acute [facility] Abdominal pain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 01/26/2012 [facility] Anxiety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 01/26/2012 [facility] Depression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 01/26/2012 [facility] 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 Nausea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 01/26/2012 [facility] Pancreatitis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 01/26/2012 [facility] Diverticulitis of Active Diagnosis 06/03/2014 Kais[facility] Fang colon GERD -Esophageal Active Diagnosis 06/03/2014 Kais[facility] Fang reflux Hypertension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 06/03/2014 K[facility] Tension headache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 06/03/2014 K[facility] Allergic rhinitis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 06/03/2014 Kais[facility] Fang Chronic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 06/03/2014 Kaisen Fang pancreatitis Bipolar disorder,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 06/03/2014 Kaisen Fang unspecified ABDMNAL PAIN Active [facility] Medications Medication Details Route Status Patient Ordering Order Source Instructions Provider Date Morphine 2 mg, Route: Inactive IVP, ONCE, 2016 [facility] Dosing Weight 90.909, kg, Priority: STAT, Start date: 07/10/16 0:15:00 [employer], Stop date: 07/10/16 0:15:00 [employer] Phenergan 12.5 mg, Inactive Route: IM, 2016 [facility] ONCE, Dosing Weight 90.909, kg, Priority: STAT, Start date: 07/10/16 0:14:00 [employer], Stop date: 07/10/16 0:14:00 [employer] Zofran 4 mg, Route: Inactive IVP, Drug 2016 [facility] form: INJ, ONCE, Dosing Weight 90.909, kg, Priority: STAT, Start date: 07/09/16 23:36:00 [employer], Stop date: 07/09/16 23:36:00 [employer] Bentyl 20 mg, Route: Inactive IM, ONCE, 2016 [facility] Dosing Weight 90.909, kg, Start date: 07/09/16 22:50:00 [employer], Stop date: 07/09/16 22:50:00 [employer] Morphine 4 mg, 1 mL, Inactive Route: IVP, 2016 [facility] Drug form: SOLN, ONCE, Dosing Weight 90.909, kg, Priority: STAT, Start date: 07/09/16 22:05:00 [employer], Stop date: 07/09/16 22:05:00 CSTNotes: (Same as:MORPhine Sulfate) Sodium Chloride 1,000 mL, Inactive 0.154 MEQ/ML 1,000 ml/hr, 2016 [facility] Injectable Infuse Over: 1 Solution hr, Route: IV, ONCE, Priority: STAT, Dosing Weight 90.909 kg, Start date: 07/09/16 22:04:00 [employer], Duration: 1 doses or times, Stop date: 07/09/16 22:04:00 [employer] Sodium Chloride 1,000 mL, Inactive 0.154 MEQ/ML 1,000 ml/hr, 2016 [facility] Injectable Infuse Over: 1 Solution hr, Route: IV, 1,000, Drug form: INJ, ONCE, Priority: STAT, Dosing Weight 90.909 kg, Start date: 07/09/16 21:47:00 [employer], Duration: 1 doses or times, Stop date: 07/09/16 21:47:00 [employer] Zofran 4 mg, 2 mL, Inactive Route: IVP, 2016 [facility] Drug form: INJ, ONCE, Dosing Weight 90.909, kg, Priority: STAT, Start date: 07/09/16 21:47:00 [employer], Stop date: 07/09/16 21:47:00 CSTNotes: (Same as: Zofran) MEDICATION WASTE Product Size: 4 mg Product Wasted: ___ mg Ativan 1 mg, 0.5 mL, Inactive Route: IVP, 2016 [facility] Drug form: INJ, ONCE, Dosing Weight 90.909, kg, Priority: STAT, Start date: 07/07/16 20:25:00 [employer], Stop date: 07/07/16 20:25:00 CSTNotes: (Same as: Ativan) Morphine 4 mg, 1 mL, Inactive Route: IVP2016 [facility] Drug form: SOLN, ONCE, Dosing Weight 90.909, kg, Priority: STAT, Start date: 07/07/16 20:22:00 [employer], Stop date: 07/07/16 20:22:00 CSTNotes: (Same as:MORPhine Sulfate) Ativan 1 mg, Route: Inactive IVP, Drug 2016 [facility] form: INJ, ONCE, Dosing Weight 90.909, kg, Priority: STAT, Start date: 07/07/16 18:46:00 [employer], Stop date: 07/07/16 18:46:00 [employer] Morphine 4 mg, Route: Inactive IVP, ONCE, 2016 [facility] Dosing Weight 90.909, kg, Priority: STAT, Start date: 07/07/16 18:46:00 [employer], Stop date: 07/07/16 18:46:00 [employer] Zofran 4 mg, 2 mL, Inactive Route: IVP, 2016 [facility] Drug form: INJ, ONCE, Dosing Weight 90.909, kg, Priority: STAT, Start date: 07/07/16 18:12:00 [employer], Stop date: 07/07/16 18:12:00 CSTNotes: (Same as: Zofran) MEDICATION WASTE Product Size: 4 mg Product Wasted: ___ mg Lactated Ringers 1,000 mL, Inactive 1,000 mL Rate: 1,000 2016 [facility] ml/hr, Infuse over: 1 hr, Route: IV, Dosing Weight 90.909 kg, Total Volume: 1,000, Start date: 07/07/16 18:11:00 [employer], Duration: 1 doses or times, Stop date: 07/07/16 19:10:00 [employer] Saline Flush 10 mL, Route: Inactive 0.9% IVP, Drug 2016 [facility] Form: INJ, Dosing Weight 100, kg, PRN, PRN Line Flush, Start date: 07/07/16 17:10:00 [employer], Duration: 30 day, Stop date: 08/06/16 17:09:00 CSTNotes: (Same as: BD Posiflush) Tramadol HCl 1 or 2 tablet Orally Active 50 mg Orally Fang 05/19/ Prachi every 6 hrs 2013 [facility] for headache topiramate 25 mg, 1 tab, Inactive Route: PO, 2013 [facility] Drug form: TAB, Bedtime, Dosing Weight 100, kg, Start date: 05/14/14 21:00:00, Duration: 30 day, Stop date: 06/12/14 21:00:00Notes: (Same As: Topamax) "Do Not Crush" Lactulose 667 20 gm=30 ml, Active MG/ML Oral PO, TID, 2013 [facility] Solution constipation, # 1,000 mL, 0 Refill(s) pantoprazole 40 mg, 1 tab, Inactive Route: PO, 2013 [facility] Drug form: ECTAB, Before Dinner, Dosing Weight 100, kg, Start date: 05/14/14 16:30:00, Duration: 30 day, Stop date: 06/12/14 16:30:00Notes: Tablet should not be chewed or crushed. (Same as: Protonix) Lactulose 667 30 gm, 45 mL, Inactive MG/ML Oral Route: PO, 2013 [facility] Solution Drug Form: SYRP, Dosing Weight 100, kg, Daily, NOW, Start date: 05/14/14 12:30:00, Duration: 30 day, Stop date: 06/13/14 9:00:00Notes: (Same as:Chronulac) Clonidine 0.1 mg, 1 tab, Inactive Hydrochloride Route: PO, 2013 [facility] 0.1 MG Oral Drug form: Tablet TAB, [...] mg, 3 cap, Inactive Route: PO, 2013 [facility] Drug form: DRC, Daily, Dosing Weight 100, kg, Start date: 05/14/14 9:00:00, Duration: 30 day, Stop date: 06/12/14 9:00:00Notes: (Same as: Cymbalta) (Do Not Crush) Flagyl 500 mg, 100 No Longer mL, Route: Active 2013 [facility] IVPB, Drug form: INJ, [id number], Start date: 05/13/14 22:00:00, Duration: 30 day, Stop date: 06/12/14 14:00:00Notes: (Same as: Flagyl) Avoid alcohol. Alprazolam 2 MG 2 mg, 2 tab, No Longer Oral Tablet Route: PO, Active 2013 [facility] [Xanax] Drug form: TAB, BID, Dosing Weight 100, kg, Start date: 05/13/14 21:30:00, Duration: 30 day, Stop date: 06/12/14 21:00:00Notes: With food or milk (Same as: Xanax) Zofran 4 mg, 2 mL, No Longer Route: IVP, Active 2013 [facility] Drug form: INJ, Q6H, PRN Nausea, Start date: 05/13/14 21:01:00, Duration: 30 day, Stop date: 06/12/14 21:00:00Notes: (Same as: Zofran) Cipro 400 mg, 200 No Longer mL, Route: [facility] 2013 [facility] IVPB, Drug form: INJ, [id number], Start date: 05/13/14 21:00:00, Duration: 30 day, Stop date: 06/12/14 9:00:00Notes: Do not refrigerate Seroquel 50 mg, 2 tab, No Longer Route: PO, 2013 [facility] Drug form: TAB, Bedtime, Dosing Weight 100, kg, Start date: 05/13/14 21:00:00, Duration: 30 day, Stop date: 06/11/14 21:00:00Notes: (Same as: SEROquel) morphine Sulfate 4 mg, 2 mL, No Longer Route: IV, [facility] 2013 [facility] Drug form: INJ, Q4H, PRN Pain Score 6-10, Start date: 05/13/14 21:00:00, Duration: 30 day, Stop date: 06/12/14 20:59:00Notes: (Same as:MORPhine Sulfate) Sodium Chloride 1,000 mL, No Longer 0.45% IV 1,000 Rate: 125 2013 [facility] mL ml/hr, Infuse over: 8 hr, Route: IV, Dosing Weight 100 kg, Total Volume: 1,000, Start date: 05/13/14 21:00:00, Duration: 30 day, Stop date: 06/12/14 20:59:00 Singulair 10 mg, 1 tab, No Longer Route: PO, 2013 [facility] Drug form: TAB, Bedtime, Dosing Weight 100, kg, Start date: 05/13/14 21:00:00, Duration: 30 day, Stop date: 06/11/14 21:00:00Notes: (Same as:Singulair) Lamictal 250 mg, 2.5 No Longer tab, Route: 2013 [facility] PO, Drug form: TAB, Daily, Dosing Weight [...] tab, No Longer Route: PO, Active 2013 [facility] Drug form: TABDIS, Q8H, Dosing Weight 100, kg, PRN as needed for nausea/vomitin g, Start date: 05/13/14 18:51:00, Stop date: 06/12/14 18:50:00Notes: (Same as: Zofran ODT) Bentyl 20 mg, 1 tab, No Longer Route: PO, Active 2013 [facility] Drug form: TAB, QID, Dosing Weight 100, [...] Active Enteric Coated Daily, # 30 2013 [facility] Capsule cap, 0 [Cymbalta] Refill(s) Alprazolam 2 MG 2 mg, PO, BID, Active Oral Tablet 0 Refill(s) 2013 [facility] [Xanax] pantoprazole 40 =1 Pack, PO, Active MG Granules Daily, # 30 2013 [facility] [Protonix] ea, 0 Refill(s) [place] 1 tablet as Orally Active 10-325 MG [facility] needed Orally every 2013 Fang 6 hrs Dexilant 1 capsule Orally Active 30 MG Orally [facility] Ka Once a day 2013 Metronidazole 1 tablet Orally Active 500 mg Orally [facility] Ka Three times a 2013 day Cipro 1 tablet Orally Active 500 mg Orally [facility] Ka every 12 hrs 2013 [facility] Clonidine HCl 1 tablet at Orally Active 0.1 MG Orally [facility] bedtime twice a day 2013 Fang (bid) Topiramate 1 tablet Orally Active 25 MG Orally [facility] twice a day 2013 Fang (bid) Dicyclomine 20 mg=1 tab, Active Hydrochloride 20 PO, QID, 2013 [facility] Oral Tablet abdominal [Bentyl] pain, # 30 tab, 0 Refill(s) Dicyclomine 20 mg=1 tab, Active Hydrochloride 20 PO, QID, 2013 [facility] Oral Tablet abdominal [Bentyl] pain, # 30 tab, 0 Refill(s) Ondansetron 4 MG 4 mg=1 tab, Active Disintegrating PO, Q8H, 2013 [facility] Tablet [Zofran] Nausea and Vomiting, Dissolve tab [...] 0.5 mg, 0.5 Inactive mL, Route: 2013 [facility] IVP, Drug form: INJ, ONCE, Dosing Weight 100, kg, Priority: STAT, Start date: 01/04/14 14:00:00, Stop date: 01/04/14 14:00:00 Sodium Chloride 1,000 mL, Inactive 0.154 MEQ/ML 1,000 ml/hr, 2013 [facility] Injectable Infuse Over: 1 Solution hr, Route: IV, 1,000, Drug form: INJ, ONCE, Priority: STAT, Dosing Weight 100 kg, Start date: 01/04/14 11:44:00, Duration: 1 doses or times, Stop date: 01/04/14 11:44:00 Ondansetron 4 mg, 2 mL, Inactive Route: IVP, 2013 [facility] Drug form: INJ, ONCE, Dosing Weight 100, kg, Priority: STAT, Start date: 01/04/14 11:44:00, Stop date: 01/04/14 11:44:00Notes: (Same as: Zofran) Lorazepam 1 mg, 0.5 mL, Inactive Route: IVP, 2013 [facility] Drug form: INJ, ONCE, Dosing Weight 100, kg, Priority: STAT, Start date: 01/04/14 11:44:00, Stop date: 01/04/14 11:44:00Notes: (Same as: Ativan) Hydromorphone 0.5 mg, 0.5 Inactive mL, Route: 2013 [facility] IVP, Drug form: INJ, ONCE, Dosing Weight 100, kg, Priority: STAT, Start date: 01/04/14 11:44:00, Stop date: 01/04/14 11:44:00 Zofran 4 mg, Route: Inactive IVP, Drug 2013 [facility] form: INJ, ONCE, Dosing Weight 100, kg, Priority: STAT, Start date: 01/04/14 9:52:00, Stop date: 01/04/14 9:52:00 Phenergan 25 mg 25 mg, 1 tab, PO Active Black oral tablet PO, Q4H, PRN, 2011 [facility] 15 tab, Nausea, Substitution Allowed Zofran 4 mg, 2 mL, IVP No Longer Banda Route: IVP, Active 2011 [facility] Drug form: INJ, ONCE, kg, Start date: 01/24/12 10:21:00, Stop date: 01/24/12 10:21:00 ketorolac 30 mg, 1 mL, IV No Longer Banda Route: IV, Active 2011 [facility] Drug form: INJ, ONCE, kg, Priority: STAT, Start date: 01/24/12 8:29:00, Stop date: 01/24/12 8:29:00 Phenergan + 12.5 mg, 0.5 IVP No Longer Banda Sodium Chloride mL, Route: IVP [place] Active 2011 [facility] 0.9% IV 20 mL [place], Drug form: INJ, ONCE, kg, PRN Nausea & Vomiting, Start date: 01/24/12 8:27:00 Sodium Chloride 1,000 mL, IV No Longer Banda 0.9% (Bolus) IV Rate: 1,000 [facility] 2011 [facility] 1,000 mL ml/hr, Infuse over: 1 hr, Route: IV, Dosing Weight 100 kg, Total Volume: 1,000, Priority: STAT, Start date: 01/24/12 8:27:00, Duration: 1 doses or times, Stop date: 01/24/12 9:26:00, Bolus DoseBolus Dose Saline Flush 5 ml, Route: IVP No Longer Banda 0.9% IVP, Drug Active 2011 [facility] Form: INJ, kg, PRN, PRN Line Flush, [...] 4 Fang Bactrim Assertion Drug Active allergy [facility] Compazine Assertion shakey Propensity Active MH to adverse [facility] reactions to drug Reglan Assertion shakey Propensity Active MH to adverse [facility] reactions to drug sulfa drugs Assertion Drug Active MH allergy [facility] Tape Assertion Drug Active allergy [facility] Immunizations Immunization Date Given Site Status Last Updated Comments Source Results Order Name Results Value Reference Date Interpretation Comments Source Range CHEM PANEL Lipase Lvl 243 unit/L 73 - 393 02/19 [facility] CARDIAC Troponin-I null 0.00 - 07/10 EN[facility]YMES 0.40 [facility] CARDIAC CK MB null 0.5 - 3.6 07/10 ENZYMES /2016 [facility] CHEM PANEL B/C Ratio 8 6 - 25 07/10 [facility] CHEM PANEL A/G Ratio 1.2 0.7 - 1.6 07/10 [facility] CHEM PANEL Globulin 3.2 g/dL 2.7 - 4.2 07/10 [facility] CHEM PANEL AGAP 11.1 meq/L 10.0 - 07/10 20.0 [facility] CHEM PANEL eGFR 77 07/10 Result [...] is not recommended in the following populations: [place] [id number] Individuals with unstable creatinine concentrations, including patients [...] Phos 53 unit/L 39 - 136 07/10 [facility] CHEM PANEL Bili Total 0.3 mg/dL [...] Lvl 336 unit/L 73 - 393 07/10 [facility] HEMATOLOGY Lymphocytes 1.6 K/CMM 1.0 - 5.5 07/10 [facility] HEMATOLOGY Eosinophils 0.2 K/CMM 0.0 - 0.5 07/10 [facility] HEMATOLOGY Monocytes # 0.5 K/CMM 0.0 - 0.8 07/10 [facility] HEMATOLOGY Segs-Bands # 6.4 K/CMM 1.5 - 8.1 07/10 [facility] HEMATOLOGY Basophils # 0.0 K/CMM 0.0 - 0.2 07/10 [facility] HEMATOLOGY Basophils 0.5 % 0.0 - 1.0 07/10 [facility] HEMATOLOGY Monocytes 6.0 % 2.0 - 12.0 07/10 [facility] HEMATOLOGY Eosinophils 1.8 % 0.0 - 4.0 07/10 [facility] HEMATOLOGY Segs 72.9 % 45.0 - 07/10 MH 75.0 /2016 [facility] HEMATOLOGY Lymphocytes 18.8 % 20.0 - 07/10 MH 40.0 /2016 [facility] HEMATOLOGY Platelet 235 K/CMM 133 - 450 07/10 [facility] HEMATOLOGY MPV 8.1 fL 7.4 - 10.4 07/10 [facility] HEMATOLOGY MCHC 33.4 g/dL 32.0 - 07/10 MH 36.0 /2016 [facility] HEMATOLOGY RDW 13.2 % 11.5 - 07/10 MH 14.5 /2016 [facility] HEMATOLOGY Hct 41.7 % 42.0 - 07/10 MH 54.0 /2016 [facility] HEMATOLOGY MCH 30.4 pg 27.0 - 07/10 MH 31.0 [facility] HEMATOLOGY MCV 91.2 fL 80.0 - 07/10 94.0 [facility] HEMATOLOGY WBC 8.7 K/CMM 3.7 - 10.4 07/10 [facility] HEMATOLOGY Hgb 13.9 g/dL 14.0 - 07/10 18.0 [facility] HEMATOLOGY RBC 4.57 M/CMM 4.70 - 07/10 MH 6.10 /2016 [facility] URINE AND UA pH 7.0 5.0 - 8.0 07/10 [facility]OOL [facility] URINE AND UA Glucose Negative Negative 07/10 [facility] mg/dL mg/dL /2016 [facility] URINE AND UA Protein Negative Negative 07/10 [facility] mg/dL mg/dL /2016 [facility] URINE AND UA <=1.0 0.1 - 1.0 07/10 [facility] Urobilinogen mg/dL /2016 [facility] URINE AND UA Turbidity Clear Clear 07/10 [facility] (07/09/16 8:42 PM) URINE AND UA Spec Grav 1.003 <=1.030 07/10 [facility] URINE AND UA Color Light Yellow Yellow 07/10 [facility] *NA* (07/09/16 8:42 PM) URINE AND UA Blood Small Negative 07/10 [facility] *ABN* (07/09/16 8:42 PM) URINE AND UA Bili Negative Negative 07/10 [facility] *NA* (07/09/16 8:42 PM) URINE AND UA Ketones Negative Negative 07/10 [facility] mg/dL mg/dL /2016 [facility] URINE AND UA RBC null 0 - 2 07/10 [facility] URINE AND UA WBC null 0 - 5 07/10 [facility] URINE AND UA Sq Epi Few /LPF Few /LPF 07/10 [facility] URINE AND UA Leuk Est Negative Negative 07/10 [facility] (07/09/16 8:42 PM) URINE AND UA Nitrite Negative Negative 07/10 STOOL [facility] (07/09/16 8:42 PM) Abdomen 2 Abdomen 2 Study: 2 views of abdomen 07/09 - views DX views DX - [facility] History: Abdominal pain Read by: Gema [...] 2.6 mg/dL 1.8 - 2.4 07/08 Lvl [facility] CHEM PANEL Lipase Lvl 248 unit/L 73 - 393 07/08 [facility] CHEM PANEL Amylase Lvl 79 unit/L 25 - 115 07/08 [facility] CHEM PANEL A/G Ratio 1.2 0.7 - 1.6 07/08 [facility] CHEM PANEL Globulin 3.5 g/dL 2.7 - 4.2 07/08 [facility] CHEM PANEL Bili Total 0.4 mg/dL 0.2 - 1.3 07/08 [facility] CHEM PANEL B/C Ratio 9 6 - 25 07/08 [facility] CHEM PANEL AGAP 8.9 meq/L 10.0 - 07/08 20.0 [facility] CHEM PANEL eGFR 95 07/08 Result [...] Lvl 78 mg/dL 70 - 99 07/08 [facility] CHEM PANEL BUN 9 mg/dL 7 - 22 07/08 [facility] CHEM PANEL CO2 30 meq/L 24 - 32 07/08 [facility] CHEM PANEL Alk Phos 54 unit/L 39 - 136 07/08 [facility] CHEM PANEL Calcium Lvl 8.9 mg/dL 8.5 - 10.5 07/08 [facility] CHEM PANEL Sodium Lvl 139 meq/L 135 - 145 07/08 [facility] CHEM PANEL Creatinine 0.96 mg/dL 0.50 - 07/08 Lvl 1.40 [facility] CHEM PANEL Albumin Lvl 4.1 g/dL 3.5 - 5.0 07/08 [facility] CHEM PANEL Total 7.6 g/dL 6.4 - 8.4 07/08 [facility] CHEM PANEL Potassium 3.9 meq/L 3.5 - 5.1 07/08 Lvl [facility] CHEM PANEL Chloride Lvl 104 meq/L 95 - 109 07/08 [facility] CHEM PANEL AST 9 unit/L 0 - 37 07/08 [facility] CHEM PANEL ALT 25 unit/L 0 - 65 07/08 [facility] HEMATOLOGY Eosinophils 0.1 K/CMM 0.0 - 0.5 07/08 [facility] HEMATOLOGY Basophils # 0.0 K/CMM 0.0 - 0.2 07/08 [facility] HEMATOLOGY Lymphocytes 1.8 K/CMM 1.0 - 5.5 07/08 [facility] HEMATOLOGY Monocytes # 0.4 K/CMM 0.0 - 0.8 07/08 [facility] HEMATOLOGY Eosinophils 1.5 % 0.0 - 4.0 07/08 [facility] HEMATOLOGY Basophils 0.4 % 0.0 - 1.0 07/08 [facility] HEMATOLOGY Segs-Bands # 4.6 K/CMM 1.5 - 8.1 07/08 [facility] HEMATOLOGY Monocytes 5.5 % 2.0 - 12.0 07/08 [facility] HEMATOLOGY Segs 66.8 % 45.0 - 07/08 MH 75.0 /2016 [facility] HEMATOLOGY Lymphocytes 25.8 % 20.0 - 07/08 MH 40.0 /2016 [facility] HEMATOLOGY MPV 8.4 fL 7.4 - 10.4 07/08 [facility] HEMATOLOGY MCH 30.0 pg 27.0 - 07/08 MH 31.0 [facility] HEMATOLOGY MCHC 32.7 g/dL 32.0 - 07/08 MH 36.0 /2016 [facility] HEMATOLOGY RDW 13.7 % 11.5 - 07/08 [facility] 14.5 /2016 [facility] HEMATOLOGY Platelet 277 K/CMM 133 - 450 07/08 [facility] HEMATOLOGY MCV 91.8 fL 80.0 - 07/08 94.0 [facility] HEMATOLOGY RBC 4.94 M/CMM 4.70 - 07/08 6.10 [facility] HEMATOLOGY WBC 6.9 K/CMM 3.7 - 10.4 07/08 [facility] HEMATOLOGY Hct 45.4 % 42.0 - 07/08 54.0 [facility] HEMATOLOGY Hgb 14.8 g/dL 14.0 - 07/08 18.0 [facility] URINE AND UA <=1.0 0.1 - 1.0 07/08 [facility] Urobilinogen mg/dL /2016 [facility] URINE AND UA Sq Epi None Seen 07/08 [facility] URINE AND UA Bacteria Occasional None Seen 07/08 [facility] /HPF /HPF /2016 [facility] URINE AND UA Nitrite Negative Negative 07/08 [facility] (07/07/16 6:15 PM) URINE AND UA Leuk Est Negative Negative 07/08 [facility] (07/07/16 6:15 PM) URINE AND UA Bili Negative Negative 07/08 [facility]OOL [facility] *NA* (07/07/16 6:15 PM) URINE AND UA Blood Small Negative 07/08 [facility] *ABN* (07/07/16 6:15 PM) URINE AND UA Ketones Negative Negative 07/08 [facility] mg/dL mg/dL /2016 [facility] URINE AND UA Glucose Negative Negative 07/08 [facility] mg/dL mg/dL /2016 [facility] URINE AND UA Protein Negative Negative 07/08 [facility] mg/dL mg/dL [facility] URINE AND UA Color Colorless Yellow 07/08 [facility] *NA* (07/07/16 6:15 PM) URINE AND UA WBC null 0 - 5 07/08 [facility] URINE AND UA Turbidity Clear Clear 07/08 [facility] (07/07/16 6:15 PM) URINE AND UA pH 7.0 5.0 - 8.0 07/08 [facility] URINE AND UA Spec Grav 1.002 <=1.030 07/08 [facility] URINE AND UA <=1.0 0.1 - 1.0 05/14 [facility] Urobilinogen mg/dL [facility] URINE AND UA Color Ltyellow 05/14 [facility] URINE AND UA Spec Grav 1.006 <=1.030 05/14 [facility] URINE AND UA Glucose Negative Negative 05/14 [facility] mg/dL mg/dL [facility] URINE AND UA pH 7.0 5.0 - 8.0 05/14 [facility] URINE AND UA Turbidity Clear Clear 05/14 [facility] (05/14/14 8:48 AM) URINE AND UA Sq Epi None Seen 05/14 [facility] URINE AND UA Protein Negative Negative 05/14 [facility] mg/dL mg/dL [facility] URINE AND UA Leuk Est Negative Negative 05/14 [facility] (05/14/14 8:48 AM) URINE AND UA WBC null 0 - 5 05/14 [facility] URINE AND UA Nitrite Negative Negative 05/14 [facility] (05/14/14 8:48 AM) URINE AND UA Blood Negative Negative 05/14 [facility] (05/14/14 8:48 AM) URINE AND UA Bili Negative Negative 05/14 [facility] *NA* (05/14/14 8:48 AM) URINE AND UA Ketones Negative Negative 05/14 [facility] mg/dL mg/dL [facility] Abdomen/Pe Abdomen/Pelv I. CT SCAN of the ABDOMEN with CONTRAST 05/14 - lvis w IV is w IV /2013 - [facility] contrast contrast CT II. CT SCAN of [...] UIBC 282 ug/dl 110 - 370 05/14 [facility] ANEMIA % [facility] 21 % 12 - 57 05/14 [facility] ANEMIA Iron 76 ug/dl 45 - 160 05/14 [facility] ANEMIA TIBC 358 ug/dl 228 - 428 05/14 [facility] ANEMIA Vitamin B12 510 pg/mL 254 - 1320 05/14 [facility] CHEM PANEL Lipase Lvl 170 unit/L 73 - 393 05/14 [facility] ELECTROLYT Chloride Lvl 105 meq/L 95 - 109 05/14 [facility] ELECTROLYT Sodium Lvl 141 meq/L 135 - 145 05/14 [facility] ELECTROLYT Potassium 3.7 meq/L 3.5 - 5.1 05/14 [facility] ELECTROLYT eGFR 82 05/14 1Result Comment: The [...] is not recommended in the following populations: [facility] 3m2 Individuals with unstable creatinine concentrations, including [...] AST 17 unit/L 0 - 37 05/14 [facility] ELECTROLYT ALT 25 unit/L 0 - 65 05/14 [facility] ELECTROLYT Creatinine 1.1 mg/dL 0.5 - 1.4 05/14 [facility] ELECTROLYT Glucose Lvl 85 mg/dL 70 - 99 05/14 2Interpretive Data: Adult reference range values reflect the clinical guidelines of the [place] [employer]. [facility] ELECTROLYT BUN 6 mg/dL 7 - 22 05/14 [facility] ELECTROLYT Albumin Lvl 3.6 g/dL 3.5 - [...] 8.7 meq/L 10.0 - 05/14 ES 20.0 [facility] HEMATOLOGY Segs-Bands # 2.1 K/CMM 1.5 - 8.1 05/14 [facility] HEMATOLOGY Eosinophils 8.1 % 0.0 - 4.0 05/14 [facility] HEMATOLOGY Monocytes 9.1 % 2.0 - 12.0 05/14 [facility] HEMATOLOGY Lymphocytes 38.2 % 20.0 - 05/14 40.0 [facility] HEMATOLOGY Monocytes # 0.4 K/CMM 0.0 - 0.8 05/14 [facility] HEMATOLOGY Eosinophils 0.4 K/CMM 0.0 - 0.5 05/14 # /2013 [facility] HEMATOLOGY Basophils 0.5 % 0.0 - 1.0 05/14 [facility] HEMATOLOGY Lymphocytes 1.8 K/CMM 1.0 - 5.5 05/14 # /2013 [facility] HEMATOLOGY Segs 44.1 % 45.0 - 05/14 75.0 [facility] HEMATOLOGY Sed Rate 8 mm/h 0 - 15 05/14 [facility] HEMATOLOGY Hgb 12.8 g/dL 14.0 - 05/14 18.0 [facility] HEMATOLOGY MCH 30.1 pg 27.0 - 05/14 31.0 /2013 [facility] HEMATOLOGY RBC 4.26 M/CMM 4.70 - 05/14 6.10 [facility] HEMATOLOGY Hct 38.5 % 42.0 - 05/14 MH 54.0 [facility] HEMATOLOGY RDW 13.1 % 11.5 - 05/14 MH 14.5 [facility] HEMATOLOGY Platelet 204 K/CMM 133 - 450 05/14 [facility] HEMATOLOGY MCV 90.4 fL 80.0 - 05/14 94.0 [facility] HEMATOLOGY MCHC 33.3 g/dL 32.0 - 05/14 MH 36.0 [facility] HEMATOLOGY MPV 9.1 fL 7.4 - 10.4 05/14 [facility] HEMATOLOGY WBC 4.8 K/CMM 3.7 - 10.4 05/14 [facility] IMMUNOLOGY C-REACTIVE 9.1 mg/L <=2.9 mg/L 05/14 PROTEIN [facility] URINE AND Occult Bld Negative Negative 01/04 STOOL Stl [facility] (01/04/14 11:41 AM) CHEM PANEL Lipase Lvl 193 unit/L 73 - 393 01/04 [facility] CHEM PANEL Amylase Lvl 57 unit/L 25 - 115 01/04 [facility] CHEM PANEL eGFR 74 01/04 1Result Comment: [...] is not recommended in the following populations: [facility] 3m2 Individuals with unstable creatinine concentrations, including [...] Lvl 9.5 mg/dL 8.5 - 10.5 01/04 [facility] CHEM PANEL CO2 28 meq/L 24 - 32 01/04 [facility] CHEM PANEL Albumin Lvl 4.1 g/dL 3.5 - 5.0 01/04 [facility] CHEM PANEL Total 7.6 g/dL 6.4 - [...] values reflect the clinical guidelines of the [place] [employer]. [facility] CHEM PANEL BUN 6 mg/dL 7 - 22 01/04 [facility] CHEM PANEL Creatinine 1.2 mg/dL 0.5 - 1.4 01/04 [facility] CHEM PANEL A/G Ratio 1.2 0.7 - 1.6 01/04 [facility] CHEM PANEL Globulin 3.5 g/dL 2.0 - 4.0 01/04 [facility] CHEM PANEL B/C Ratio 5 6 - 25 01/04 [facility] CHEM PANEL AGAP 11.4 meq/L 10.0 - 01/04 20.0 [facility] HEMATOLOGY MCH 29.5 pg 27.0 - 01/04 31.0 [facility] HEMATOLOGY Hgb 14.4 g/dL 14.0 - 01/04 18.0 [facility] HEMATOLOGY Hct 43.3 % 42.0 - 01/04 54.0 /2013 [facility] HEMATOLOGY MCV 88.6 fL 80.0 - 01/04 94.0 [facility] HEMATOLOGY Platelet 231 K/CMM 133 - 450 01/04 [facility] HEMATOLOGY WBC 10.0 K/CMM 3.7 - 10.4 01/04 [facility] HEMATOLOGY RBC 4.89 M/CMM 4.70 - 01/04 MH 6.10 [facility] HEMATOLOGY MPV 8.9 fL 7.4 - 10.4 01/04 [facility] HEMATOLOGY MCHC 33.3 g/dL 32.0 - 01/04 MH 36.0 /2013 [facility] HEMATOLOGY RDW 13.5 % 11.5 - 01/04 MH 14.5 /2013 [facility] HEMATOLOGY Basophils # 0.1 K/CMM 0.0 - 0.2 01/04 /2013 [facility] HEMATOLOGY Segs 77.0 % 45.0 - 01/04 MH 75.0 /2013 [facility] HEMATOLOGY Lymphocytes 13.4 % 20.0 - 01/04 MH 40.0 /2013 [facility] HEMATOLOGY Eosinophils 1.6 % 0.0 - 4.0 01/04 /2013 [facility] HEMATOLOGY Monocytes 7.3 % 2.0 - 12.0 01/04 [facility] HEMATOLOGY Segs-Bands # 7.7 K/CMM 1.5 - 8.1 01/04 [facility] HEMATOLOGY Basophils 0.7 % 0.0 - 1.0 01/04 [facility] HEMATOLOGY Lymphocytes 1.3 K/CMM 1.0 - 5.5 01/04 MH # /2013 [facility] HEMATOLOGY Monocytes # 0.7 K/CMM 0.0 - 0.8 01/04 [facility] HEMATOLOGY Eosinophils 0.2 K/CMM 0.0 - 0.5 01/04 MH # /2013 [facility] URINE AND UA Bacteria Occasional None Seen 01/04 STOOL /HPF /HPF /2013 [facility] URINE AND UA Sq Epi Occasional Few /LPF 01/04 STOOL /LPF /2013 [facility] URINE AND UA Nitrite Negative Negative 01/04 STOOL (01/04/14 9:00 AM) URINE AND UA Bili Negative Negative 01/04 STOOL [facility] *NA* (01/04/14 9:00 AM) URINE AND UA Blood Negative Negative 01/04 STOOL (01/04/14 9:00 AM) URINE AND UA Protein Negative Negative 01/04 STOOL [facility] (01/04/14 9:00 AM) URINE AND UA Glucose Negative Negative 01/04 STOOL (01/04/14 9:00 AM) URINE AND UA 0.2 EU/dL 0.1 - 1.0 01/04 STOOL Urobilinogen [facility] URINE AND UA Ketones Negative Negative 01/04 STOOL [facility] *NA* (01/04/14 9:00 AM) URINE AND UA Color Yellow Yellow 01/04 STOOL [facility] *NA* (01/04/14 9:00 AM) URINE AND UA Turbidity Clear Clear 01/04 STOOL [facility] (01/04/14 9:00 AM) URINE AND UA Spec Grav <=1.005 <=1.030 01/04 STOOL
*NA*< [facility] br/>( 9:00 AM) URINE AND UA pH 7.5 5.0 - 8.0 01/04 STOOL [facility] URINE AND UA Leuk Est Negative Negative 01/04 STOOL [facility] (01/04/14 9:00 AM) Abdomen/Pe Abdomen/Pelv CT Abdomen [...] 218 unit/L 73 - 393 01/23 Normal [facility] CHEMISTRY AST 10 unit/L 0 - 37 01/23 Normal [facility] CHEMISTRY Calcium Lvl 8.4 mg/dL 8.5 - 10.5 01/23 LOW [facility] CHEMISTRY CO2 25 meq/L 24 - 32 01/23 Normal [facility] CHEMISTRY Total 6.8 g/dL 6.4 - 8.4 08/16 Normal MH [facility] CHEMISTRY Bili Total 0.2 mg/dL 0.2 - 1.3 01/23 Normal [facility] CHEMISTRY Albumin Lvl 3.6 g/dL 3.5 - 5.0 01/23 Normal [facility] CHEMISTRY Alk Phos 53 unit/L 39 - 136 01/23 Normal [facility] CHEMISTRY ALT 29 unit/L 0 - 65 01/23 Normal [facility] CHEMISTRY Glucose Lvl 86 mg/dL 70 - 99 01/23 Normal 1Interpretive Data: Adult reference range values reflect the clinical guidelines of the [place] [employer]. [facility] CHEMISTRY BUN 10 mg/dL 7 - 22 01/23 Normal [facility] CHEMISTRY Creatinine 1.0 mg/dL 0.5 - 1.4 01/23 Normal [facility] CHEMISTRY Potassium 3.6 meq/L 3.5 - 5.1 01/23 Normal [facility] CHEMISTRY Sodium Lvl 141 meq/L 135 - 145 01/23 Normal [facility] CHEMISTRY Chloride Lvl 108 meq/L 95 - 109 01/23 Normal [facility] CHEMISTRY AGAP 11.6 meq/L 10.0 - 01/23 Normal MH 20.0 [facility] CHEMISTRY B/C Ratio 10 6 - 25 01/23 Normal [facility] CHEMISTRY Globulin 3.2 g/dL 2.0 - 4.0 01/23 Normal [facility] CHEMISTRY A/G Ratio 1.1 0.7 - 1.6 01/23 Normal [facility] HEMATOLOGY Platelet 247 K/CMM 133 - 450 01/23 Normal [facility] HEMATOLOGY MPV 8.6 fL 7.4 - 10.4 01/23 Normal [facility] HEMATOLOGY RDW 14.9 % 11.5 - 01/23 HI MH 14.5 /2011 [facility] HEMATOLOGY MCHC 33.5 g/dL 32.0 - 01/23 Normal MH 36.0 [facility] HEMATOLOGY Hct 35.2 % 42.0 - 01/23 LOW MH 54.0 [facility] HEMATOLOGY MCV 85.8 fL 80.0 - 01/23 Normal MH 94.0 [facility] HEMATOLOGY MCH 28.7 pg 27.0 - 01/23 Normal MH 31.0 [facility] HEMATOLOGY RBC 4.10 M/CMM 4.70 - 01/23 LOW MH 6.10 [facility] HEMATOLOGY Hgb 11.8 g/dL 14.0 - 08 LOW 18.0 /2012 [facility] HEMATOLOGY WBC 4.1 K/CMM 3.7 - 10.4 / Normal /2011 [facility] HEMATOLOGY Basophils # 0.0 K/CMM 0.0 - 0.2 / Normal /2011 [facility] HEMATOLOGY Segs-Bands # 2.4 K/CMM 1.5 - 8.1 01/23 Normal /2011 [facility] HEMATOLOGY Lymphocytes 1.0 K/CMM 1.0 - 5.5 08/ Normal /2011 [facility] HEMATOLOGY Eosinophils 0.2 K/CMM 0.0 - 0.5 08/ Normal # /2011 [facility] HEMATOLOGY Monocytes # 0.4 K/CMM 0.0 - 0.8 01/23 Normal /2011 [facility] HEMATOLOGY Basophils 0.2 % 0.0 - 1.0 01/23 Normal /2011 [facility] HEMATOLOGY Segs 58.4 % 45.0 - 08 Normal 75.0 /2011 [facility] HEMATOLOGY Lymphocytes 25.2 % 20.0 - 08 Normal 40.0 [facility] HEMATOLOGY Monocytes 10.4 % 2.0 - 12.0 01/23 Normal [facility] HEMATOLOGY Eosinophils 5.8 % 0.0 - 4.0 08/ HI /2011 [facility] Vital Signs Vital Sign Value Date Comments Source Temperature Oral (F) 98.7 F 07/10/2016 [facility] Heart Rate 86 07/10/2016 [facility] Respitory Rate 15 07/10/2016 [facility] Systolic (mm Hg) 122 07/10/2016 [facility] Diastolic (mm Hg) 82 07/10/2016 [facility] Respitory Rate 18 07/10/2016 [facility] Heart Rate 87 07/10/2016 [facility] Systolic (mm Hg) 114 07/10/2016 [facility] Diastolic (mm Hg) 87 07/10/2016 [facility] Systolic (mm Hg) 134 07/10/2016 [facility] Diastolic (mm Hg) 95 07/10/2016 [facility] Heart Rate 98 07/10/2016 [facility] Respitory Rate 18 07/10/2016 [facility] Weight 90.909 07/10/2016 [facility] Temperature Oral (F) 99.0 F 07/10/2016 [facility] Respitory Rate 18 07/08/2016 [facility] Temperature Oral (F) 98.5 F 07/08/2016 [facility] Systolic (mm Hg) 134 07/08/2016 [facility] Diastolic (mm Hg) 94 07/08/2016 [facility] Heart Rate 79 07/08/2016 [facility] Systolic (mm Hg) 148 07/08/2016 [facility] Diastolic (mm Hg) 83 07/08/2016 [facility] Respitory Rate 20 07/08/2016 [facility] Heart Rate 81 07/08/2016 [facility] BMI Calculated 29.6 07/07/2016 [facility] Weight 90.909 07/07/2016 [facility] Temperature Oral (F) 98.1 F 07/07/2016 [facility] Height 175.26 cm 07/07/2016 [facility] Heart Rate 90 07/07/2016 [facility] Systolic (mm Hg) 139 07/07/2016 [facility] Diastolic (mm Hg) 90 07/07/2016 [facility] Respitory Rate 20 07/07/2016 [facility] Diastolic (mm Hg) 72 05/14/2014 [facility] Systolic (mm Hg) 105 05/14/2014 [facility] Respitory Rate 18 05/14/2014 [facility] Temperature Oral (F) 98.4 F 05/14/2014 [facility] Heart Rate 84 05/14/2014 [facility] Systolic (mm Hg) 100 05/14/2014 [facility] Diastolic (mm Hg) 63 05/14/2014 [facility] Heart Rate 75 05/14/2014 [facility] Temperature Oral (F) 97.8 F 05/14/2014 [facility] Respitory Rate 18 05/14/2014 [facility] Temperature Oral (F) 97.9 F 05/14/2014 [facility] Heart Rate 66 05/14/2014 [facility] Respitory Rate 17 05/14/2014 [facility] Systolic (mm Hg) 100 05/14/2014 [facility] Diastolic (mm Hg) 67 05/14/2014 [facility] Weight 100 05/13/2014 [facility] Height 175.26 cm 05/13/2014 [facility] BMI Calculated 32.56 05/13/2014 [facility] BMI Calculated 32.56 05/13/2014 [facility] Height 175.26 cm 05/13/2014 [facility] Weight [...] Dbisen Fang Respitory [facility] 18 04/19/2014 [facility] 114 01/04/2014 [facility] Respitory Rate 18 01/04/2014 [facility] Diastolic (mm Hg) 69 01/04/2014 [facility] Diastolic (mm Hg) 68 01/04/2014 [facility] Heart Rate 83 01/04/2014 [facility] Respitory Rate 18 01/04/2014 [facility] Systolic (mm Hg) 115 01/04/2014 [facility] Heart Rate 91 01/04/2014 [facility] Respitory Rate 18 01/04/2014 [facility] BMI Calculated 32.56 01/04/2014 [facility] Height 175.26 cm 01/04/2014 [facility] Weight 100 01/04/2014 [facility] Temperature Oral (F) 98.4 F 01/04/2014 [facility] Diastolic (mm Hg) 81 01/04/2014 [facility] Systolic (mm Hg) 136 01/04/2014 [facility] Heart Rate 144 01/04/2014 [facility] Weight 100.000 01/24/2012 [facility] Height 175.26 cm 01/24/2012 [facility] Encounters Location Location Encounter Encounter Reason Attending ADM DC Status Source Details Type Number For Provider Date Date Visit Emergency [id number] SAMIR 01/23 01/23 Active [facility] /2011 [facility] [place] [id number] Samir Johnsone 01/04 01/04 [place] [facility] /2013 [facility] Prachi Initial [id number] 04/19 04/19 Prachi Guzmán MD visit [id number] /2013 [facility] [id number] Prachi Initial [id number] 04/19 04/19 Prachi Guzmán MD visit [id number] /2013 [facility] [id number] Prachi Sick Visit [id number] 05/12 05/12 Prachi Guzmán MD - Follow up [id number] /2013 [facility] for [id number] multiple problems [facility] Inpatient [id number] Prachi 05/13 05/14 ARON Guzmán /2013 [facility] Emergency [id number] Coy 07/07 07/08 Zack Burt /2016 [facility] Emergency [id number] Coy 07/10 07/10 Zack Burt /2016 [facility] Outpatient [id number] Non 02/19 02/19 Zack Donohue /2016 [facility] Procedures Procedure Code Date Perfomer Comments Source Appendectomy [id number] [facility] Bladder [id number] pt reports [facility] operation<sup>1</sup> bladder was blistered Cholecystectomy [id number] [facility] Appendectomy [id number] [facility] Bladder [id number] pt reports [facility] operation<sup>1</sup> bladder was blistered Cholecystectomy [id number] [facility]
--- OUTSIDE RECORDS SUMMARY | 2018-10-07 16:50 | XMS REPORT | CCD ---
:1970 Author Organization [facility] Care Team Providers Name Role Phone Samir Armenta Consulting Provider Allergies, Adverse Reactions, Alerts Substance Reaction Status Compazine shakey Active Reglan shakey Active sulfa drugs Active Tape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 List Condition Effective Dates Status Abdominal pain Active Anxiety Active Depression Active Guillain-Garrard syndrome Active Nausea Active Pancreatitis Active Medications [...] values reflect the clinical guidelines of the [place] [employer].HEMATOLOGY Most recent to oldest [Reference [...]
--- OUTSIDE RECORDS SUMMARY | 2018-10-07 16:51 | XMS REPORT ---
:1970 [facility] [place] [address] Care Team Providers Name Role Phone NOÉ [...] MDReport Verified Date/Time: 2017 07:15:04 Reading Location: [facility] C013V Neuro Reading Room ESIUM 2017 06:19:00 Test Item Value Reference Range Comments MAGNESIUM (BEAKER) (test hude=506) 2.6 mg/dL 1.6-2.6 BASIC METABOLIC [id number] 06:19:00 Test Item Value Reference Range Comments SODIUM (BEAKER) (test 136 meq/L 136-145 ltoy=811) POTASSIUM (BEAKER) (test 4.6 meq/L 3.5-5.1 vcxm=541) CHLORIDE (BEAKER) (test 107 meq/L 98-107 pppu=738) CO2 (BEAKER) (test 23 meq/L 22-29 onxc=405) BLOOD UREA NITROGEN 13 mg/dL 7-21 (BEAKER) (test gagc=616) CREATININE (BEAKER) (test 0.81 mg/dL 0.57-1.25 sgsc=050) GLUCOSE RANDOM (BEAKER) 92 mg/dL 70-105 (test nsvw=726) CALCIUM (BEAKER) (test 9.3 mg/dL 8.4-10.2 pkiu=501) EGFR (BEAKER) (test 103 mL/min/1.73 sq m ESTIMATED GFR IS NOT anfz=8042) ACCURATE CREATININE CLEARANCE IN PREDICTING GLOMERULAR FILTRATION RATE. ESTIMATED GFR IS NOT APPLICABLE FOR DIALYSIS PATIENTS. CBC W/PLT COUNT & AUTO [id number] 05:45:00 Test Item Value Reference Range Comments WHITE BLOOD CELL COUNT (BEAKER) (test jmst=651) 6.2 K/ L 3.5-10.5 RED BLOOD CELL COUNT (BEAKER) (test blaj=262) 4.22 M/ L 4.63-6.08 HEMOGLOBIN (BEAKER) (test igvg=801) 13.0 GM/DL 13.7-17.5 HEMATOCRIT (BEAKER) (test gydw=682) 40.2 % 40.1-51.0 MEAN CORPUSCULAR VOLUME (BEAKER) (test hgqu=893) 95.3 fL 79.0-92.2 MEAN CORPUSCULAR HEMOGLOBIN (BEAKER) (test 30.8 pg 25.7-32.2 djla=940) MEAN CORPUSCULAR HEMOGLOBIN CONC (BEAKER) (test 32.3 GM/DL 32.3-36.5 nrmd=991) RED CELL DISTRIBUTION WIDTH (BEAKER) (test 13.2 % 11.6-14.4 hpek=548) PLATELET COUNT (BEAKER) (test dkgo=263) 212 K/CU MM 150-450 MEAN PLATELET VOLUME (BEAKER) (test ytfg=596) 10.4 fL 9.4-12.4 NUCLEATED RED BLOOD CELLS (BEAKER) (test 0 /100 WBC 0-0 rwjv=859) NEUTROPHILS RELATIVE PERCENT (BEAKER) (test 53 % ahbp=576) LYMPHOCYTES RELATIVE PERCENT (BEAKER) (test 31 % uhom=742) MONOCYTES RELATIVE PERCENT (BEAKER) (test 8 % urli=034) EOSINOPHILS RELATIVE PERCENT (BEAKER) (test 7 % bpas=606) BASOPHILS RELATIVE PERCENT (BEAKER) (test 1 % tczq=323) NEUTROPHILS ABSOLUTE COUNT (BEAKER) (test 3.28 K/ L 1.78-5.38 esoh=335) LYMPHOCYTES ABSOLUTE COUNT (BEAKER) (test 1.94 K/ L 1.32-3.57 ylxq=625) MONOCYTES ABSOLUTE COUNT (BEAKER) (test 0.49 K/ L 0.30-0.82 xgrj=057) EOSINOPHILS ABSOLUTE COUNT (BEAKER) (test 0.43 K/ L 0.04-0.54 ubko=186) BASOPHILS ABSOLUTE COUNT (BEAKER) (test 0.05 K/ L 0.01-0.08 mqjm=452) IMMATURE GRANULOCYTES-RELATIVE PERCENT (BEAKER) 0 % 0-1 (test ukzv=5048) TSH/FREE T4 IF [id number] 07:06:00 Test Item Value Reference Range Comments THYROID STIMULATING HORMONE (BEAKER) (test 2.05 uIU/mL 0.35-4.94 bcnb=389) [id number] 07:03:00 Test Item Value Reference Range Comments MAGNESIUM (BEAKER) (test dufr=587) 2.8 mg/dL 1.6-2.6 BASIC METABOLIC [id number] 07:03:00 Test Item Value Reference Range Comments SODIUM (BEAKER) (test 137 meq/L 136-145 chwa=770) POTASSIUM (BEAKER) (test 4.1 meq/L 3.5-5.1 tghx=307) CHLORIDE (BEAKER) (test 103 meq/L 98-107 iewj=788) CO2 (BEAKER) (test 28 meq/L 22-29 ikxw=126) BLOOD UREA NITROGEN 15 mg/dL 7-21 (BEAKER) (test nzcu=858) CREATININE (BEAKER) (test 0.97 mg/dL 0.57-1.25 obbw=956) GLUCOSE RANDOM (BEAKER) 92 mg/dL 70-105 (test kbyu=596) CALCIUM (BEAKER) (test 9.4 mg/dL 8.4-10.2 grwo=061) EGFR (BEAKER) (test 83 mL/min/1.73 sq m ESTIMATED GFR IS NOT vaoy=4537) ACCURATE CREATININE CLEARANCE IN PREDICTING GLOMERULAR FILTRATION RATE. ESTIMATED GFR IS NOT APPLICABLE FOR DIALYSIS PATIENTS. [id number] 07:03:00 Test Item Value Reference Range Comments LIPASE (BEAKER) (test xrbk=436) 96 U/L 8-78 LITHIUM [id number] 06:45:00 Test Item Value Reference Range Comments LITHIUM LEVEL (BEAKER) (test yrnp=048) 0.6 mmol/L 0.8-1.2 CBC W/PLT COUNT & AUTO [id number] 06:37:00 Test Item Value Reference Range Comments WHITE BLOOD CELL COUNT (BEAKER) (test dgfx=634) 4.8 K/ L 3.5-10.5 RED BLOOD CELL COUNT (BEAKER) (test dscd=727) 4.37 M/ L 4.63-6.08 HEMOGLOBIN (BEAKER) (test ejam=568) 13.1 GM/DL 13.7-17.5 HEMATOCRIT (BEAKER) (test ynhc=730) 41.9 % 40.1-51.0 MEAN CORPUSCULAR VOLUME (BEAKER) (test ctqn=620) 95.9 fL 79.0-92.2 MEAN CORPUSCULAR HEMOGLOBIN (BEAKER) (test 30.0 pg 25.7-32.2 vqyu=912) MEAN CORPUSCULAR HEMOGLOBIN CONC (BEAKER) (test 31.3 GM/DL 32.3-36.5 zcxb=278) RED CELL DISTRIBUTION WIDTH (BEAKER) (test 13.2 % 11.6-14.4 jzcr=950) PLATELET COUNT (BEAKER) (test bwqs=954) 217 K/CU MM 150-450 MEAN PLATELET VOLUME (BEAKER) (test kjle=775) 9.8 fL 9.4-12.4 NUCLEATED RED BLOOD CELLS (BEAKER) (test 0 /100 WBC 0-0 vjed=883) NEUTROPHILS RELATIVE PERCENT (BEAKER) (test 47 % ehlz=843) LYMPHOCYTES RELATIVE PERCENT (BEAKER) (test 31 % kvhb=413) MONOCYTES RELATIVE PERCENT (BEAKER) (test 11 % sxrk=981) EOSINOPHILS RELATIVE PERCENT (BEAKER) (test 9 % eiwd=429) BASOPHILS RELATIVE PERCENT (BEAKER) (test 1 % mksi=734) NEUTROPHILS ABSOLUTE COUNT (BEAKER) (test 2.26 K/ L 1.78-5.38 uvwv=495) LYMPHOCYTES ABSOLUTE COUNT (BEAKER) (test 1.51 K/ L 1.32-3.57 upmg=817) MONOCYTES ABSOLUTE COUNT (BEAKER) (test 0.55 K/ L 0.30-0.82 hfji=371) EOSINOPHILS ABSOLUTE COUNT (BEAKER) (test 0.43 K/ L 0.04-0.54 wfko=786) BASOPHILS ABSOLUTE COUNT (BEAKER) (test 0.05 K/ L 0.01-0.08 tnnd=921) IMMATURE GRANULOCYTES-RELATIVE PERCENT (BEAKER) 0 % 0-1 (test yyuv=7984)
--- OUTSIDE RECORDS SUMMARY | 2018-10-07 16:51 | XMS REPORT ---
[...] End Status Dosage Date Date Topiramate MEDISPAN 36436-21 25 MG Orally Apr 19, Active 1 tablet 55-06 twice a day 2013 (bid) Seroquel MEDISPAN 78510-83 50 mg Orally Active 1 tablet 78-10 Once a day at bedtime Lisinopril MEDISPAN 06605-23 20 MG Orally Inactive 1 tablet 68-01 Once a day Clonidine HCl MEDISPAN 49910-44 0.1 MG Orally Apr 19, Active 1 tablet 27-10 twice a day 2013 at bedtime (bid) Tramadol HCl MEDISPAN 31763-26 50 mg Orally May 19, Active 1 or 2 58-01 every 6 hrs for 2013 tablet headache Xanax MEDISPAN 93953-64 2 MG Orally Active 1/2 tablet 94-01 three times a in am and day (tid) noon, 1 tablet at bedtime Singulair MEDISPAN 13396-88 10 MG Orally Active 1 tablet 17-01 Once a day in the evening Protonix MEDISPAN 87498-48 40 mg Orally Active 1 tablet 41-81 once a day Cymbalta MEDISPAN 86634-92 90 Orally Once a Active 1 [facility] 40[facility]01 [facility] 33185-76 250 Orally once Active 1 tablet 99-00 [...]
--- OUTSIDE RECORDS SUMMARY | 2018-10-07 16:51 | XMS REPORT ---
[...] End Status Dosage Date Date Xanax MEDISPAN 89382-92 2 MG Orally Active 1/2 tablet 94-01 three times a in am and day (tid) noon, 1 tablet at bedtime Lamictal MEDISPAN 00446-42 250 Orally once Active 1 tablet 99-00 every night [facility] 770[facility]38 [facility].1 MG Orally Apr 19, Active 1 tablet 27-10 twice a day 2013 at bedtime (bid) Cymbalta MEDISPAN 39188-61 90 Orally Once a Active 1 capsule 40-01 day [place] MEDISPAN 08879-70 10-325 MG Orally May 12, May 27, Active 1 tablet 80-73 every 6 hrs 2013 2013 as needed [facility]ilant [facility] 39796-15 30 MG Orally May 12, Active 1 capsule 66-30 Once a day 2013 Singulair MEDISPAN 11376-83 10 MG Orally Active 1 tablet 17-01 Once a day in the evening Tramadol HCl MEDISPAN 65293-85 50 mg Orally May 19, Active 1 or 2 58-01 every 6 hrs for 2014 tablet headache [facility] 9[facility]77 25 MG Orally Apr 19, Active 1 tablet 55-06 twice a day 2013 (bid) Metronidazole MEDISPAN 66108-71 500 mg Orally May 12May 22, Active 1 tablet 32-04 Three times a 2013 2013 day Protonix MEDISPAN 25808-11 40 mg Orally Inactive 1 tablet 41-81 once a day Seroquel MEDISPAN 33986-69 50 mg Orally Active 1 tablet 78-10 Once a day at bedtime Cipro MEDISPAN 06993-98 500 mg Orally May 12May 22, Active [...]
[2018-10-07 18:20] LABS: Absolute Lymphocytes (CBC) 1.8 K/uL (0.7-4.9); Absolute Monocytes 0.5 K/uL (0.1-1.3); Absolute Neutrophil 2.6 K/uL (1.8-8.0); Basophils % 1.7 % (0-1.3); Eosinophils % 3.7 % (0-4.4); Hematocrit 39.6 % (39.6-49.0); Lymphocytes % 34.7 % (15.3-44.8); MPV 8.6 fL (7.6-11.3); Monocytes % 8.9 % (3.3-12.3); RBC Red Blood Cell Count 4.28 M/uL (4.33-5.43)
[2018-10-07] MEDS ORDERED: PROMETHAZINE 25 MG/ML VIAL ONE ×2 (18:21→19:27)
[2018-10-07] MEDS ORDERED: MORPHINE 4 MG/ML SYR ONE (18:22)
[2018-10-07] MEDS ORDERED: NA CHLORIDE 0.9% 1,000 ML ONE ×3 (18:22→19:27)
[2018-10-07 18:36] LABS: Albumin 4.1 g/dL (3.4-5.0); Bilirubin Direct 0.1 mg/dL (0-0.2); Bilirubin Total 0.4 mg/dL (0.2-1.0); Potassium 3.2 mmol/L (3.5-5.1); Protein, Total 7.4 g/dL (6.4-8.2)
--- NOTE | 2018-10-07 19:53 | EDPHYS ---
Physician Documentation [facility] Name: Thong Fuchs Jr Age: 47 yrs Sex: Male : 1970 Arrival Date: 10/07/2018 Time: 16:45 Bed 13 Private MD: Monroe Valdes H ED Physician Vincent Avendaño HPI: 10/07 17:34 This 47 yrs old Male presents to ER via Ambulatory with complaints of jmm Abdominal Pain, Vomiting. 17:34 The patient presents with abdominal pain. Onset: The symptoms/episode began/occurred 1 jmm day(s) ago. The symptoms do not radiate. This is a 47 year old male with a history of htn that presents to the ED with complaints of epigastric abdominal pain, vomiting beginning last night. Patient attributes this to a flare of chronic pancreatitis. Patient denies recent ETOH use. . Historical: - Allergies: 16:50 Bactrim; tw2 16:50 Compazine; tw2 16:50 Reglan; "causes anxiety"; tw2 16:50 Sulfa (Sulfonamide Antibiotics); tw2 - Home Meds: 16:50 venlafaxine 150 mg Oral cp24 once daily [Active]; quetiapine 200 mg Oral tab once daily tw2 [Active]; lorazepam 2 mg Oral tab 1 tab 2 times per day [Active]; lithium carbonate 600 mg Oral cap 1 cap at bedtime [Active]; lamotrigine 200 mg Oral tab 2 tabs once daily [Active]; omeprazole 40 mg Oral cpDR 2 times per day [Active]; Lamictal Oral [Active]; - PMHx: 16:50 Anxiety; Depression; guillain barre; Hypertension; PANCREATIC CALCIFICATION; tw2 Pancreatitis; - PSHx: 16:50 Appendectomy; rebecca foot; left wrist; Cholecystectomy; tw2 - Immunization history:: Adult Immunizations. - Social history:: Smoking status: Smoking status: Patient uses tobacco products, 5-6 cigarettes. - Ebola Screening: : Patient denies travel to an Ebola-affected area in the 21 days before illness onset. ROS: 17:34 Constitutional: Negative for fever, chills, and weight loss, Cardiovascular: Negative jmm for chest pain, palpitations, and edema, Respiratory: Negative for shortness of breath, cough, wheezing, and pleuritic chest pain. 17:34 Abdomen/GI: Positive for abdominal pain, nausea and vomiting, Negative for diarrhea. 17:34 All other systems are negative. Exam: 17:34 Constitutional: This is a well developed, well nourished patient who is awake, alert, jmm and in no acute distress. Head/Face: atraumatic. Eyes: EOMI, no conjunctival erythema appreciated ENT: Moist Mucus Membranes Neck: Trachea midline, Supple Chest/axilla: Normal chest wall appearance and motion. Cardiovascular: Regular rate and rhythm. No edema appreciated Respiratory: Normal respirations, no respiratory distress appreciated Abdomen/GI: Non distended, soft 17:34 Abdomen/GI: Palpation: mild abdominal tenderness, in the epigastric area and left upper quadrant. 17:34 Back: ROM is normal. 17:34 Musculoskeletal/extremity: ROM: intact in all extremities. 17:34 Skin: Appearance: Color: normal in color. 17:34 Neuro: Orientation: is normal, Mentation: is normal, Memory: is normal. 17:34 Psych: Behavior/mood is pleasant, cooperative. Vital Signs: 16:48 BP 153 / 81; Pulse 95; Resp 18; Temp 97.8(O); Pulse Ox 100% on R/A; Weight 74.84 kg tw2 (R); Height 5 ft. 9 in. (175.26 cm) (R); Pain 8/10; 18:12 BP 118 / 86; Pulse 71; Resp 18; Pulse Ox 100% on R/A; Pain 8/10; mh5 18:42 Pain 8/10; mh5 19:45 BP 120 / 81; Pulse 60; Resp 16; Pulse Ox 99% on R/A; jb4 16:48 Body Mass Index 24.37 (74.84 kg, 175.26 cm) tw2 MDM: 17:09 Patient medically screened. [facility] 19:51 Data reviewed: vital signs, nurses notes. Counseling: I had a detailed discussion with coleman the patient and/or guardian regarding: the historical points, exam findings, and any diagnostic results supporting the discharge/admit diagnosis, lab results, the need for outpatient follow up, to return to the emergency department if symptoms worsen or persist or if there are any questions or concerns that arise at home. ED course: Symptoms appear consistent with a chronic pancreatitis flare/ Abdomen is soft. Patient has no peritoneal signs on PE. I do not currently suspect an acute intraabdominal process. Patient advised to follow up with GI for further evaluation. Patient is given strict return precautions for increased pain. Patient understood and agrees with the plan of care. . 10/07 17:05 Order name: Basic Metabolic Panel; Complete Time: 18:44 [facility] 10/07 17:05 Order name: CBC with Diff; Complete Time: 18:26 [facility] 10/07 17:05 Order name: Creatinine for Radiology; Complete Time: 18:44 [facility] 10/07 17:05 Order name: Hepatic Function; Complete Time: 18:44 [facility] 10/07 17:05 Order name: Lipase; Complete Time: 18:44 [facility] 10/07 17:05 Order name: IV Saline Lock; Complete Time: 17:57 [facility] 10/07 17:05 Order name: Labs collected and sent; Complete Time: 17:57 jmm Administered Medications: 18:15 Drug: NS 0.9% 1000 ml Route: IV; Rate: 1 bolus; Site: right forearm; rb1 20:19 Follow up: Response: No adverse reaction; IV Status: Completed infusion; IV Intake: jb4 900ml ; Pt refused to finish infusion. 18:15 Drug: morphine 4 mg Route: IVP; Site: right forearm; rb1 18:30 Follow up: Response: No adverse reaction; Pain is unchanged, physician notified rb1 18:15 Drug: Promethazine 12.5 mg Route: IVP; Site: right forearm; rb1 18:30 Follow up: Response: No adverse reaction; Nausea is decreased rb1 19:20 Drug: NS 0.9% 1000 ml Route: IV; Rate: 1 bolus; Site: left antecubital; ss 20:18 Follow up: Response: No adverse reaction; IV Status: Completed infusion; IV Intake: jb4 900ml ; Pt refused to finish infusion. 19:20 Drug: Promethazine 12.5 mg Route: IVP; Site: left antecubital; ss 19:50 Follow up: Response: No adverse reaction; Nausea is decreased jb4 Disposition: 21:49 Co-signature as Attending Physician, Vincent Avendaño MD. Disposition: 10/07/18 19:53 Discharged to Home. Impression: Epigastric pain. - Condition is Stable. - Discharge Instructions: Abdominal Pain, Adult. - Prescriptions for Bentyl 20 mg Oral Tablet - take 2 tablet by ORAL route every 6 hours As needed; 40 tablet. - Medication Reconciliation Form, Thank You Letter, Antibiotic Education, Prescription Opioid Use form. - Follow up: Monroe Valdes DO; When: Tomorrow; Reason: Recheck today's complaints, Continuance of care, Re-evaluation by your physician. Signatures: Dispatcher [employer] EDMS Bob Castrejon PA PA jmm Smirch, Shelby, RN RN ss Scarlett Roberts, RN RN rb1 Sonali Cole RN RN tw2 Ivan Saab RN RN jb4 Vincent Avendaño MD MD gs Corrections: (The following items were deleted from the chart) 20:20 19:53 10/07/2018 19:53 Discharged to Home. Impression: Epigastric pain. Condition is jb4 Stable. Forms are Medication Reconciliation Form, Thank You Letter, Antibiotic Education, Prescription Opioid Use. Follow up: Monroe Valdes; When: Tomorrow; Reason: Recheck today's complaints, Continuance of care, Re-evaluation by your physician. coleman
--- NOTE | 2018-10-07 19:53 | ER ---
Nurse's Notes [facility] Name: Thong Fuchs Jr Age: 47 yrs Sex: Male : 1970 Arrival Date: 10/07/2018 Time: 16:45 Bed 13 Private MD: Monroe Valdes H Diagnosis: Epigastric pain Presentation: 10/07 16:47 Presenting complaint: Patient states: i have abdominal pain and vomiting started last tw2 night and has gotten worse, Dr. Valdes sent me here, i have like dry heaves, i havent been able to do my follow up with a GI because my insurance isnt into effect. Transition of care: patient was not received from another setting of care. Onset of symptoms was October 07, 2018. Risk Assessment: Do you want to hurt yourself or someone else? Patient reports no desire to harm self or others. Initial Sepsis Screen: Does the patient meet any 2 criteria? No. Patient's initial sepsis screen is negative. Does the patient have a suspected source of infection? No. Patient's initial sepsis screen is negative. Care prior to arrival: None. 16:47 Method Of Arrival: Ambulatory tw2 16:47 Acuity: LILO 3 tw2 Triage Assessment: 16:48 General: Appears uncomfortable, Behavior is calm, cooperative, appropriate for age. tw2 Pain: Complains of pain in left lower quadrant Pain radiates to back. GI: Abdomen is flat, distended, Bowel sounds present X 4 quads. Reports intolerance of fluids, intolerance of food, nausea, vomiting, Patient currently denies diarrhea. Historical: - Allergies: 16:50 Bactrim; tw2 16:50 Compazine; tw2 16:50 Reglan; "causes anxiety"; tw2 16:50 Sulfa (Sulfonamide Antibiotics); tw2 - Home Meds: 16:50 venlafaxine 150 mg Oral cp24 once daily [Active]; quetiapine 200 mg Oral tab once daily tw2 [Active]; lorazepam 2 mg Oral tab 1 tab 2 times per day [Active]; lithium carbonate 600 mg Oral cap 1 cap at bedtime [Active]; lamotrigine 200 mg Oral tab 2 tabs once daily [Active]; omeprazole 40 mg Oral cpDR 2 times per day [Active]; Lamictal Oral [Active]; - PMHx: 16:50 Anxiety; Depression; guillain barre; Hypertension; PANCREATIC CALCIFICATION; tw2 Pancreatitis; - PSHx: 16:50 Appendectomy; rebecca foot; left wrist; Cholecystectomy; tw2 - Immunization history:: Adult Immunizations. - Social history:: Smoking status: Smoking status: Patient uses tobacco products, 5-6 cigarettes. - Ebola Screening: : Patient denies travel to an Ebola-affected area in the 21 days before illness onset. Screenin:55 Abuse screen: Denies threats or abuse. Nutritional screening: No deficits noted. rb1 Tuberculosis screening: No symptoms or risk factors identified. Fall Risk None identified. Assessment: 16:55 General: Appears uncomfortable, Behavior is calm, cooperative, Denies fever. Pain: rb1 Complains of pain in left upper quadrant Pain radiates to left lower back Pain currently is 8 out of 10 on a pain scale. Pain began last night. Neuro: Level of Consciousness is awake, alert, obeys commands, Oriented to person, place, time, situation. Cardiovascular: Capillary refill < 3 seconds is brisk in bilateral fingers. Respiratory: Airway is patent Respiratory effort is even, unlabored, Respiratory pattern is regular, symmetrical. GI: Abd is soft Abdomen is tender to palpation in left upper quadrant Reports nausea, vomiting, since last night. : No signs and/or symptoms were reported regarding the genitourinary system. Derm: Skin is pink, warm \\T\\ dry. Musculoskeletal: Range of motion: intact in all extremities. 17:55 Reassessment: Patient appears in no apparent distress at this time. No changes from rb1 previously documented assessment. 18:45 Reassessment: Patient appears in no apparent distress at this time. Patient and/or rb1 family updated on plan of care and expected duration. Pain level reassessed. Patient is alert, oriented x 3, equal unlabored respirations, skin warm/dry/pink. Pt. requested pain medication; provider notified. Received order for NS 1000ml bolus x 1. 19:20 Reassessment: Patient appears in no apparent distress at this time. Patient and/or jb4 family updated on plan of care and expected duration. Pain level reassessed. Patient is alert, oriented x 3, equal unlabored respirations, skin warm/dry/pink. 20:15 Reassessment: Patient appears in no apparent distress at this time. Patient and/or jb4 family updated on plan of care and expected duration. Pain level reassessed. Patient is alert, oriented x 3, equal unlabored respirations, skin warm/dry/pink. Pt D/c home with family, gait is steady, IV discontinued. Pt informed of the need to finish fluids prior to discharge. Pt refused. Vital Signs: 16:48 BP 153 / 81; Pulse 95; Resp 18; Temp 97.8(O); Pulse Ox 100% on R/A; Weight 74.84 kg tw2 (R); Height 5 ft. 9 in. (175.26 cm) (R); Pain 8/10; 18:12 BP 118 / 86; Pulse 71; Resp 18; Pulse Ox 100% on R/A; Pain 8/10; mh5 18:42 Pain 8/10; mh5 19:45 BP 120 / 81; Pulse 60; Resp 16; Pulse Ox 99% on R/A; jb4 16:48 Body Mass Index 24.37 (74.84 kg, 175.26 cm) tw2 ED Course: 16:45 Patient arrived in ED. mr 16:45 Monroe Valdes DO is Private Physician. mr 16:48 Triage completed. tw2 16:48 Arm band placed on. tw2 16:58 Scarlett Roberts, JESSA is Primary Nurse. rb1 17:03 Bob Castrejon PA is PHCP. jmm 17:03 Vincent Avendaño MD is Attending Physician. jmm 17:30 Missed attempt(s): 22 gauge in left antecubital area. rb1 17:56 Inserted saline lock: 22 gauge in right forearm, using aseptic technique. Blood ss collected. 17:56 Missed attempt(s): 22 gauge in right antecubital area. mh5 17:57 Patient has correct armband on for positive identification. Bed in low position. Call mh5 light in reach. Adult w/ patient. Pulse ox on. NIBP on. 18:19 Warm blanket given. mh5 18:55 Report given to JESSA Elliott. rb1 19:53 Monroe Valdes DO is Referral Physician. jmm 20:15 No provider procedures requiring assistance completed. IV discontinued, intact, jb4 bleeding controlled. Administered Medications: 18:15 Drug: NS 0.9% 1000 ml Route: IV; Rate: 1 bolus; Site: right forearm; rb1 20:19 Follow up: Response: No adverse reaction; IV Status: Completed infusion; IV Intake: jb4 900ml ; Pt refused to finish infusion. 18:15 Drug: morphine 4 mg Route: IVP; Site: right forearm; rb1 18:30 Follow up: Response: No adverse reaction; Pain is unchanged, physician notified rb1 18:15 Drug: Promethazine 12.5 mg Route: IVP; Site: right forearm; rb1 18:30 Follow up: Response: No adverse reaction; Nausea is decreased rb1 19:20 Drug: NS 0.9% 1000 ml Route: IV; Rate: 1 bolus; Site: left antecubital; ss 20:18 Follow up: Response: No adverse reaction; IV Status: Completed infusion; IV Intake: jb4 900ml ; Pt refused to finish infusion. 19:20 Drug: Promethazine 12.5 mg Route: IVP; Site: left antecubital; ss 19:50 Follow up: Response: No adverse reaction; Nausea is decreased jb4 Intake: 20:18 IV: 900ml; Total: 900ml. jb4 20:19 IV: 900ml; Total: 1800ml. jb4 Outcome: 19:53 Discharge ordered by MD. coleman 20:15 Discharged to home ambulatory, with family. jb4 20:15 Condition: stable 20:15 Discharge instructions given to patient, family, Instructed on discharge instructions, follow up and referral plans. medication usage, Demonstrated understanding of instructions, follow-up care, medications, Prescriptions given X 1. 20:20 Patient left the ED. jb Signatures: Bob Castrejon PA PA jmm Rivera, Mary mr Tiarra Borrego, RN RN ss Scarlett Roberts, RN RN rb1 Sonali Cole RN RN tw2 Ivan Saab RN RN [facility] Corina Waterman [facility]
[2018-10-07 20:42] VITALS: TEMP 97.8
[2018-10-07 20:45] VITALS: BP 120/81; O2SAT 99
== END 2018-10-07 20:20 | disposition home or self-care (01) ==
LOC: ER 16:42
DX: R10.13 Epigastric pain (principal); I10 Essential (primary) hypertension; F41.9 Anxiety disorder, unspecified; F32.9 Major depressive disorder, single episode, unspecified; K85.90 Acute pancreatitis without necrosis or infection, unspecified; Z72.0 Tobacco use; Z88.1 Allergy status to other antibiotic agents; Z88.2 Allergy status to sulfonamides; Z88.8 Allergy status to other drugs, medicaments and biological substances
CPT/HCPCS: 36415; 80048; 80076; 83690; 85025; J2550; J7030

== ENCOUNTER 2019-02-12 18:11 | Emergency (ER) | payer SELFPAY ==
--- OUTSIDE RECORDS SUMMARY | 2019-02-12 18:14 | XMS REPORT | Clinical Summary ---
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 Last Filed Vital Signs Not on file Plan of Treatment Not on file Results Not on fileafter 02/11/2018 Advance Directives For more information, please contact:[address] [phone] Code Status Date Activated Date Inactivated Comments Full Code 12/04/2017 8:31 PM 2017 5:00 PM This code status was determined by: Patient
--- OUTSIDE RECORDS SUMMARY | 2019-02-12 18:16 | XMS REPORT | Continuity of Care Document ---
:1970 Author Organization [facility] Care Team Providers Name Role Phone [facility] Unavailable Unavailable Problems Problem Status Onset Classification Date Comments Source Date Reported ABDOMINAL PAIN Active 02/19/20 17 [place] Discharge 07/10/19 07/13/2016 [facility] Diagnosis: 17 Generalized abdominal pain ABD PAIN, Active 05/13/20 [place] POSSIBLE ACUTE 14 DIVERTICULITIS LOWER ABD PAIN Active 05/13/20 [place] 14 Discharge 01/05/20 01/07/2014 [facility] Diagnosis: 14 Abdominal pain NAUSEA OR Active 01/24/20 [facility] VOMITING/ABD PAIN 12 Abdominal pain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 02/21/2017 (finding) [facility] Anxiety (finding)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 02/21/2017 [facility] Mixed anxiety and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 02/21/2017 depressive [place], disorder [facility] (disorder) Depressive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 02/21/2017 disorder [facility], (disorder) [facility] 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[place], (disorder) [facility] Nausea (finding)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 02/21/2017 [facility] Pancreatitis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 02/21/2017 (disorder) [place],[facility] Acute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 02/21/2017 pancreatitis [place], (disorder) [facility] Abdominal pain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 01/26/2012 [facility] Anxiety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 01/26/2012 [facility] Depression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 01/26/2012 [facility] 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 Nausea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 01/26/2012 [facility] Pancreatitis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 01/26/2012 [facility] Bipolar disorder,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 06/03/2014 eCW: Prachi unspecified Fang Tension headache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 06/03/2014 eCW: Prachi Riceg GERD -Esophageal Active Diagnosis 06/03/2014 eCW: Prachi reflux Fang Chronic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 06/03/2014 eCW: Prachi pancreatitis Fang Allergic rhinitis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 06/03/2014 eCW: Prachi Fang Hypertension Active Problem 06/03/2014 eCW: Kavania Fang Diverticulitis of Active Diagnosis 06/03/2014 eCW: Prachi colon (without Fang mention of hemorrhage) ABDMNAL PAIN Active [facility] SITE Medications Medication Details Route Status Patient Ordering Order Source Instructions Provider Date Morphine 2 mg, Route: Inactive IVP, ONCE, 2016 [facility] Dosing Weight 90.909, kg, Priority: STAT, Start date: 07/10/16 0:15:00 [employer]WIND INSTRUMENT REPAIRER, Stop date: 07/10/16 0:15:00 [employer] INSTRUMENT REPAIRER Phenergan 12.5 mg, Inactive Route: IM, 2016 [facility] ONCE, Dosing Weight 90.909, kg, Priority: STAT, Start date: 07/10/16 0:14:00 [employer] INSTRUMENT REPAIRER, Stop date: 07/10/16 0:14:00 [employer] INSTRUMENT REPAIRER Zofran 4 mg, Route: Inactive IVP, Drug 2016 [facility] form: INJ, ONCE, Dosing Weight 90.909, kg, Priority: STAT, Start date: 07/09/16 23:36:00 BRASSWIND INSTRUMENT REPAIRER, Stop date: 07/09/16 23:36:00 [employer]ASSWIND INSTRUMENT REPAIRER Bentyl 20 mg, Route: Inactive IM, ONCE, 2016 [facility] Dosing Weight 90.909, kg, Start date: 07/09/16 22:50:00 BRASSWIND INSTRUMENT REPAIRER, Stop date: 07/09/16 22:50:00 BRASSWIND INSTRUMENT REPAIRER Morphine 4 mg, 1 mL, Inactive Route: IVP, 2016 [facility] Drug form: SOLN, ONCE, Dosing Weight 90.909, kg, Priority: STAT, Start date: 07/09/16 22:05:00 BRASSWIND INSTRUMENT REPAIRER, Stop date: 07/09/16 22:05:00 CSTNotes: (Same as:MORPhine Sulfate) Sodium Chloride 1,000 mL, Inactive 0.154 MEQ/ML 1,000 ml/hr, 2016 [facility] Injectable Infuse Over: 1 Solution hr, Route: IV, ONCE, Priority: STAT, Dosing Weight 90.909 kg, Start date: 07/09/16 22:04:00 BRASSWIND INSTRUMENT REPAIRER, Duration: 1 doses or times, Stop date: 07/09/16 22:04:00 BRASSWIND INSTRUMENT REPAIRER Sodium Chloride 1,000 mL, Inactive 0.154 MEQ/ML 1,000 ml/hr, 2016 [facility] Injectable Infuse Over: 1 Solution hr, Route: IV, 1,000, Drug form: INJ, ONCE, Priority: STAT, Dosing Weight 90.909 kg, Start date: 07/09/16 21:47:00 BRASSWIND INSTRUMENT REPAIRER, Duration: 1 doses or times, Stop date: 07/09/16 21:47:00 BRASSWIND INSTRUMENT REPAIRER Zofran 4 mg, 2 mL, Inactive Route: IVP, 2016 [facility] Drug form: INJ, ONCE, Dosing Weight 90.909, kg, Priority: STAT, Start date: 07/09/16 21:47:00 BRASSWIND INSTRUMENT REPAIRER, Stop date: 07/09/16 21:47:00 CSTNotes: (Same as: Zofran) MEDICATION WASTE Product Size: 4 mg Product Wasted: ___ mg Ativan 1 mg, 0.5 mL, Inactive Route: IVP, 2016 [facility] Drug form: INJ, ONCE, Dosing Weight 90.909, kg, Priority: STAT, Start date: 07/07/16 20:25:00 BRASSWIND INSTRUMENT REPAIRER, Stop date: 07/07/16 20:25:00 CSTNotes: (Same as: Ativan) Morphine 4 mg, 1 mL, Inactive Route: IVP2016 [facility] Drug form: SOLN, ONCE, Dosing Weight 90.909, kg, Priority: STAT, Start date: 07/07/16 20:22:00 BRASSWIND INSTRUMENT REPAIRER, Stop date: 07/07/16 20:22:00 CSTNotes: (Same as:MORPhine Sulfate) Ativan 1 mg, Route: Inactive IVP, Drug 2016 [facility] form: INJ, ONCE, Dosing Weight 90.909, kg, Priority: STAT, Start date: 07/07/16 18:46:00 BRASSWIND INSTRUMENT REPAIRER, Stop date: 07/07/16 18:46:00 BRASSWIND INSTRUMENT REPAIRER Morphine 4 mg, Route: Inactive IVP, ONCE, 2016 [facility] Dosing Weight 90.909, kg, Priority: STAT, Start date: 07/07/16 18:46:00 BRASSWIND INSTRUMENT REPAIRER, Stop date: 07/07/16 18:46:00 BRASSWIND INSTRUMENT REPAIRER Zofran 4 mg, 2 mL, Inactive Route: IVP, 2016 [facility] Drug form: INJ, ONCE, Dosing Weight 90.909, kg, Priority: STAT, Start date: 07/07/16 18:12:00 BRASSWIND INSTRUMENT REPAIRER, Stop date: 07/07/16 18:12:00 CSTNotes: (Same as: Dennis) MEDICATION WASTE Product Size: 4 mg Product Wasted: ___ mg Lactated Ringers 1,000 mL, Inactive 1,000 mL Rate: 1,000 2016 [facility] ml/hr, Infuse over: 1 hr, Route: IV, Dosing Weight 90.909 kg, Total Volume: 1,000, Start date: 07/07/16 18:11:00 BRASSWIND INSTRUMENT REPAIRER, Duration: 1 doses or times, Stop date: 07/07/16 19:10:00 BRASSWIND INSTRUMENT REPAIRER Saline Flush 10 mL, Route: Inactive 0.9% IVP, Drug 2016 [facility] Form: INJ, Dosing Weight 100, kg, PRN, PRN Line Flush, Start date: 07/07/16 17:10:00 BRASSWIND INSTRUMENT REPAIRER, Duration: 30 day, Stop date: 08/06/16 17:09:00 CSTNotes: (Same as: BD Posiflush) Tramadol HCl 1 or 2 tablet Orally Active 50 mg Orally Fang 05/19/ eCW: every 6 hrs 2013 Prachi for headache Dwayne topiramate 25 mg, 1 tab, Inactive Route: PO, 2013 [facility] Drug form: TAB, Bedtime, Dosing Weight 100, kg, Start date: 05/14/14 21:00:00, Duration: 30 day, Stop date: 06/12/14 21:00:00Notes: (Same As: Topamax) "Do Not Crush" Lactulose 667 20 gm=30 ml, Active MG/ML Oral PO, TID, 2013 [facility] Solution constipation, # 1,000 mL, 0 Refill(s) pantoprazole 40 mg, 1 tab, Inactive Route: PO, 2013 [facility] Drug form: ECTAB, Before Dinner, Dosing Weight 100, kg, Start date: 05/14/14 16:30:00, Duration: 30 day, Stop date: 06/12/14 16:30:00Notes: Tablet should not be chewed or crushed. (Same as: Protonix) Lactulose 667 30 gm, 45 mL, Inactive MG/ML Oral Route: PO, 2013 [facility] Solution Drug Form: SYRP, Dosing Weight 100, kg, Daily, NOW, Start date: 05/14/14 12:30:00, Duration: 30 day, Stop date: 06/13/14 9:00:00Notes: (Same as:Chronulac) Clonidine 0.1 mg, 1 tab, Inactive Hydrochloride Route: PO, 2013 [facility] 0.1 MG Oral Drug form: Tablet TAB, BID, Dosing Weight 100, kg, Start date: 05/14/14 9:00:00, Duration: 30 day, Stop date: 06/12/14 17:00:00Notes: (Same As: Catapres) topiramate 25 mg, 1 tab, Inactive Route: PO, 2013 [facility] Drug form: TAB, BID, Dosing Weight 100, kg, Start date: 05/14/14 9:00:00, Duration: 30 day, Stop date: 06/12/14 17:00:00Notes: (Same As: Topamax) "Do Not Crush" duloxetine 90 mg, 3 cap, Inactive Route: PO, 2013 [facility] Drug form: DRC, Daily, Dosing Weight 100, kg, Start date: 05/14/14 9:00:00, Duration: 30 day, Stop date: 06/12/14 9:00:00Notes: (Same as: Cymbalta) (Do Not Crush) Flagyl 500 mg, 100 No Longer mL, Route: Active 2013 [facility] IVPB, Drug form: INJ, [id number], Start date: 05/13/14 22:00:00, Duration: 30 day, Stop date: 06/12/14 14:00:00Notes: (Same as: Flagyl) Avoid alcohol. Alprazolam 2 MG 2 mg, 2 tab, No Longer Oral Tablet Route: PO, Active 2013 [facility] [Xanax] Drug form: TAB, BID, Dosing Weight 100, kg, Start date: 05/13/14 21:30:00, Duration: 30 day, Stop date: 06/12/14 21:00:00Notes: With food or milk (Same as: Xanax) Zofran 4 mg, 2 mL, No Longer Route: IVP, 2013 [facility] Drug form: INJ, Q6H, PRN Nausea, Start date: 05/13/14 21:01:00, Duration: 30 day, Stop date: 06/12/14 21:00:00Notes: (Same as: Zofran) Cipro 400 mg, 200 No Longer mL, Route: 2013 [facility] IVPB, Drug form: INJ, [id number], Start date: 05/13/14 21:00:00, Duration: 30 day, Stop date: 06/12/14 9:00:00Notes: Do not refrigerate Seroquel 50 mg, 2 tab, No Longer Route: PO, 2013 [facility] Drug form: TAB, Bedtime, Dosing Weight 100, kg, Start date: 05/13/14 21:00:00, Duration: 30 day, Stop date: 06/11/14 21:00:00Notes: (Same as: SEROquel) morphine Sulfate 4 mg, 2 mL, No Longer Route: IV, 2013 [facility] Drug form: INJ, Q4H, PRN Pain Score 6-10, Start date: 05/13/14 21:00:00, Duration: 30 day, Stop date: 06/12/14 20:59:00Notes: (Same as:MORPhine Sulfate) Sodium Chloride 1,000 mL, No Longer 0.45% IV 1,000 Rate: 125 2013 [facility] mL ml/hr, Infuse over: 8 hr, Route: IV, Dosing Weight 100 kg, Total Volume: 1,000, Start date: 05/13/14 21:00:00, Duration: 30 day, Stop date: 06/12/14 20:59:00 Singulair 10 mg, 1 tab, No Longer Route: PO, 2013 [facility] Drug form: TAB, Bedtime, Dosing Weight 100, kg, Start date: 05/13/14 21:00:00, Duration: 30 day, Stop date: 06/11/14 21:00:00Notes: (Same as:Singulair) Lamictal 250 mg, 2.5 No Longer tab, Route: Active 2013 [facility] PO, Drug form: TAB, Daily, Dosing Weight [...] tab, No Longer Route: PO, Active 2013 [facility] Drug form: TABDIS, Q8H, Dosing Weight 100, kg, PRN as needed for nausea/vomitin g, Start date: 05/13/14 18:51:00, Stop date: 06/12/14 18:50:00Notes: (Same as: Zofran ODT) Bentyl 20 mg, 1 tab, No Longer Route: PO, Active 2013 [facility] Drug form: TAB, QID, Dosing Weight 100, [...] Active hydrochloride 50 PO, Q6H, Pain, 2013 MG Oral Tablet # 40 tab, 0 Refill(s) duloxetine 60 MG 90 mg, PO, Active Enteric Coated Daily, # 30 2013 [facility] Capsule cap, 0 [Cymbalta] Refill(s) Alprazolam 2 MG 2 mg, PO, BID, Active Oral Tablet 0 Refill(s) 2013 [Xanax] pantoprazole 40 =1 Pack, PO, Active MG Granules Daily, # 30 2013 [facility] [Protonix] ea, 0 Refill(s) [place] 1 tablet as Orally Active 10-325 MG [facility] 05/12/ eCW: needed Orally every 2013[place] 6 hrs Arielle Dexilant 1 capsule Orally Active 30 MG Orally [facility] 05/12/ eCW: Once a day 2013 Dbsami Metronidazole 1 tablet Orally Active 500 mg Orally [facility] 05/12/ eCW: Three times a 2013 nancy Guzmán Cipro 1 tablet Orally Active 500 mg Orally [facility] 05/12/ eCW: every 12 hrs 2013sami Topiramate 1 tablet Orally Active 25 MG Orally [facility] 04/19/ eCW: twice a day [place] (bid) Arielle Clonidine HCl 1 tablet at Orally Active 0.1 MG Orally [facility] 04/19/ eCW: bedtime twice a day 2013 (bid) Fang Dicyclomine 20 mg=1 tab, Active Hydrochloride 20 PO, QID, 2013 MG Oral Tablet abdominal [Bentyl] pain, # 30 tab, 0 Refill(s) Dicyclomine 20 mg=1 tab, Active Hydrochloride 20 PO, QID, 2013 MG Oral Tablet abdominal [Bentyl] pain, # 30 tab, 0 Refill(s) Ondansetron 4 MG 4 mg=1 tab, Active Disintegrating PO, Q8H, 2013 Tablet [Zofran] Nausea and Vomiting, Dissolve tab under tongue, # 10 tab, 0 Refill(s)Speci al Instructions: Dissolve tab under tongue Dilaudid 0.5 mg, Route: Inactive IV, ONCE, 2013 Dosing Weight 100, kg, Priority: STAT, Start date: 01/04/14 14:28:00, Stop date: 01/04/14 14:28:00 Zofran 4 mg, Route: Inactive IVP, Drug 2013 [facility] form: INJ, ONCE, Dosing Weight 100, kg, Priority: STAT, Start date: 01/04/14 14:27:00, Stop date: 01/04/14 14:27:00 Hydromorphone 0.5 mg, 0.5 Inactive mL, Route: 2013 [facility] IVP, Drug form: INJ, ONCE, Dosing Weight 100, kg, Priority: STAT, Start date: 01/04/14 14:00:00, Stop date: 01/04/14 14:00:00 Sodium Chloride 1,000 mL, Inactive 0.154 MEQ/ML 1,000 ml/hr, 2013 [facility] Injectable Infuse Over: 1 Solution hr, Route: IV, 1,000, Drug form: INJ, ONCE, Priority: STAT, Dosing Weight 100 kg, Start date: 01/04/14 11:44:00, Duration: 1 doses or times, Stop date: 01/04/14 11:44:00 Ondansetron 4 mg, 2 mL, Inactive Route: IVP, 2013 [facility] Drug form: INJ, ONCE, Dosing Weight 100, kg, Priority: STAT, Start date: 01/04/14 11:44:00, Stop date: 01/04/14 11:44:00Notes: (Same as: Zofran) Lorazepam 1 mg, 0.5 mL, Inactive Route: IVP, 2013 [facility] Drug form: INJ, ONCE, Dosing Weight 100, kg, Priority: STAT, Start date: 01/04/14 11:44:00, Stop date: 01/04/14 11:44:00Notes: (Same as: Ativan) Hydromorphone 0.5 mg, 0.5 Inactive mL, Route: 2013 [facility] IVP, Drug form: INJ, ONCE, Dosing Weight 100, kg, Priority: STAT, Start date: 01/04/14 11:44:00, Stop date: 01/04/14 11:44:00 Zofran 4 mg, Route: Inactive IVP, Drug 2013 [facility] form: INJ, ONCE, Dosing Weight 100, kg, Priority: STAT, Start date: 01/04/14 9:52:00, Stop date: 01/04/14 9:52:00 Phenergan 25 mg 25 mg, 1 tab, PO Active Black oral tablet PO, Q4H, PRN, 2011 15 tab, Nausea, Substitution Allowed Zofran 4 mg, 2 mL, IVP No Longer Banda Route: IVP, Active 2011 [facility] Drug form: INJ, ONCE, kg, Start date: 01/24/12 10:21:00, Stop date: 01/24/12 10:21:00 ketorolac 30 mg, 1 mL, IV No Longer Banda Route: IV, Active 2011 [facility] Drug form: INJ, ONCE, kg, Priority: STAT, Start date: 01/24/12 8:29:00, Stop date: 01/24/12 8:29:00 Phenergan + 12.5 mg, 0.5 IVP No Longer Banda Sodium Chloride mL, Route: IVP Central Active 2011 [facility] 0.9% IV 20 mL [place], Drug form: INJ, ONCE, kg, PRN Nausea & Vomiting, Start date: 01/24/12 8:27:00 Sodium Chloride 1,000 mL, IV No Longer Banda 0.9% (Bolus) IV Rate: 1,000 Active 2011 [facility] 1,000 mL ml/hr, Infuse over: 1 hr, Route: IV, Dosing Weight 100 kg, Total Volume: 1,000, Priority: STAT, Start date: 01/24/12 8:27:00, Duration: 1 doses or times, Stop date: 01/24/12 9:26:00, Bolus DoseBolus Dose Saline Flush 5 ml, Route: IVP No Longer Banda 0.9% IVP, Drug Active 2011 Form: INJ, kg, PRN, PRN Line Flush, Start date: 01/24/12 8:27:00, Duration: 24 hr, Stop date: 01/25/12 8:26:00 Seroquel 1 tablet at Orally Active 50 mg Orally Fang eCW: bedtime Once a day Kaisen Dwayneg Lisinopril 1 tablet Orally No Longer 20 MG Orally Fang eCW: Active Once a day Prachi Riceg Xanax 1/2 tablet in Orally Active 2 MG Orally Fang eCW: am and noon, three times a Kaisen 1 tablet at day (tid) Fang bedtime Singulair 1 tablet in Orally Active 10 MG Orally Fang eCW: the evening Once a day Dbisen Dwayneg Protonix 1 tablet Orally No Longer 40 mg Orally Fang eCW: Active once a day Kaisen Dwayneg Cymbalta 1 capsule Orally Active 90 Orally Fang eCW: Once a day Kaisen Fang Lamictal 1 tablet Orally Active 250 Orally Fang eCW: once every night Fang Allergies, Adverse Reactions, Alerts Substance Category Reaction Severity Reaction Status Date Comments Source type Reported Lisinopril Adverse abd pain Adverse Active eCW: Reaction Reaction 4 Kaisen Fang Bactrim Assertion Drug Active allergy [place] Compazine Assertion shakey Propensity Active MH to adverse [place] reactions to drug Reglan Assertion shakey Propensity Active MH to adverse [place] reactions to drug sulfa drugs Assertion Drug Active allergy [place] Tape Assertion Drug Active allergy [place] Immunizations No Data Provided for This Section Results Order Name Results Value Reference Date Interpretation Comments Source Range CHEM PANEL Lipase Lvl 243 73 - 393 02/19 [facility] CARDIAC Troponin-I <0.02 0.00 - 07/10 ENZYMES 0.40 [facility] CARDIAC CK MB <0.5 0.5 - 3.6 07/10 ENZYMES [facility] CHEM PANEL B/C Ratio 8 6 - 25 07/10 [facility] CHEM PANEL A/G Ratio 1.2 0.7 - 1.6 07/10 [facility] CHEM PANEL Globulin 3.2 2.7 - 4.2 07/10 [facility] CHEM PANEL AGAP 11.1 10.0 - 07/10 MH 20.0 [facility] CHEM PANEL eGFR 77 07/10 Result Comment: The [facility] eGFR is calculated using the CKD-EPI formula. In most young, healthy individuals the eGFR will be >90 mL/min/1.73m2 . The eGFR declines with age. An eGFR of 60-89 may be normal in some populations, particularly the elderly, for whom the CKD-EPI formula has not been extensively validated. Use of the eGFR is not recommended in the following populations:< br/>
Darby viduals with unstable creatinine concentration s, including patients and those with serious co-morbid conditions.<b r/>
Patie nts with extremes in muscle mass or diet.

The data above are obtained from the National Kidney Disease Education Program (NKDEP) which additionally recommends that when the eGFR is used in patients with extremes of body mass index for purposes of drug dosing, the eGFR should be multiplied by the estimated BMI. CHEM PANEL Alk Phos 53 39 - 136 07/10 [facility] CHEM PANEL Bili Total 0.3 0.2 - 1.3 07/10 [facility] CHEM PANEL ALT 25 0 - 65 07/10 [facility] CHEM PANEL AST 12 0 - 37 07/10 [facility] CHEM PANEL BUN 9 7 - 22 07/10 [place] CHEM PANEL Glucose Lvl 97 70 - 99 07/10 [place] CHEM PANEL Total 7.1 6.4 - 8.4 07/10 Protein [place] CHEM PANEL Albumin Lvl 3.9 3.5 - 5.0 07/10 [place] CHEM PANEL Potassium 4.1 3.5 - 5.1 07/10 Lvl /2016 [place] CHEM PANEL Creatinine 1.15 0.50 - 07/10 Lvl 1.40 /2016 [place] CHEM PANEL Sodium Lvl 138 135 - 145 07/10 [place] CHEM PANEL Chloride Lvl 104 95 - 109 07/10 [facility] CHEM PANEL CO2 27 24 - 32 07/10 [facility] CHEM PANEL Calcium Lvl 8.8 8.5 - 10.5 07/10 [place] CHEM PANEL Lipase Lvl 336 73 - 393 07/10 [facility] HEMATOLOGY Lymphocytes 1.6 1.0 - 5.5 07/10 MH # /2016 [facility] HEMATOLOGY Eosinophils 0.2 0.0 - 0.5 07/10 # /2016 [facility] HEMATOLOGY Monocytes # 0.5 0.0 - 0.8 07/10 [facility] HEMATOLOGY Segs-Bands # 6.4 1.5 - 8.1 07/10 [facility] HEMATOLOGY Basophils # 0.0 0.0 - 0.2 07/10 [facility] HEMATOLOGY Basophils 0.5 0.0 - 1.0 07/10 [facility] HEMATOLOGY Monocytes 6.0 2.0 - 12.0 07/10 [facility] HEMATOLOGY Eosinophils 1.8 0.0 - 4.0 07/10 [facility] HEMATOLOGY Segs 72.9 45.0 - 07/10 MH 75.0 /2016 [facility] HEMATOLOGY Lymphocytes 18.8 20.0 - 07/10 MH 40.0 /2016 [facility] HEMATOLOGY Platelet 235 133 - 450 07/10 [facility] HEMATOLOGY MPV 8.1 7.4 - 10.4 07/10 [facility] HEMATOLOGY MCHC 33.4 32.0 - 07/10 MH 36.0 /2016 [facility] HEMATOLOGY RDW 13.2 11.5 - 07/10 14.5 /2016 [facility] HEMATOLOGY Hct 41.7 42.0 - 07/10 54.0 /2016 [facility] HEMATOLOGY MCH 30.4 27.0 - 07/10 MH 31.0 /2016 [facility] HEMATOLOGY MCV 91.2 80.0 - 07/10 94.0 /2016 [facility] HEMATOLOGY WBC 8.7 3.7 - 10.4 07/10 [facility] HEMATOLOGY Hgb 13.9 14.0 - 07/10 18.0 /2016 [facility] HEMATOLOGY RBC 4.57 4.70 - 07/10 6.10 /2016 [facility] URINE AND UA pH 7.0 5.0 - 8.0 07/10 STOOL /2017 [facility] URINE AND UA Glucose Negative Negative 07/10 STOOL mg/dL mg/dL [facility] URINE AND UA Protein Negative Negative 07/10 STOOL mg/dL mg/dL [facility] URINE AND UA <=1.0 0.1 - 1.0 07/10 STOOL Urobilinogen mg/dL /2016 [facility] URINE AND UA Turbidity Clear Clear 07/10 STOOL (07/09/16 8:42 PM) /2016 [facility] URINE AND UA Spec Grav 1.003 <=1.030 07/10 STOOL /2016 [facility] URINE AND UA Color Light Yellow Yellow 07/10 STOOL *NA* /2016 [facility] (07/09/16 8:42 PM) URINE AND UA Blood Small Negative 07/10 STOOL *ABN* [facility] (07/09/16 8:42 PM) URINE AND UA Bili Negative Negative 07/10 STOOL *NA* /2016 [facility] (07/09/16 8:42 PM) URINE AND UA Ketones Negative Negative 07/10 STOOL mg/dL mg/dL [facility] URINE AND UA RBC <1 0 - 2 07/10 STOOL [facility] URINE AND UA WBC <1 0 - 5 07/10 STOOL [facility] URINE AND UA Sq Epi Few /LPF Few /LPF 07/10 STOOL [facility] URINE AND UA Leuk Est Negative Negative 07/10 STOOL (07/09/16 8:42 PM) [facility] URINE AND UA Nitrite Negative Negative 07/10 STOOL (07/09/16 8:42 PM) [facility] CHEM PANEL Magnesium 2.6 1.8 - 2.4 07/08 Lvl /2016 [facility] CHEM PANEL Lipase Lvl 248 73 - 393 07/08 [facility] CHEM PANEL Amylase Lvl 79 25 - 115 07/08 [facility] CHEM PANEL A/G Ratio 1.2 0.7 - 1.6 07/08 [facility] CHEM PANEL Globulin 3.5 2.7 - 4.2 07/08 [facility] CHEM PANEL Bili Total 0.4 0.2 - 1.3 07/08 [facility] CHEM PANEL B/C Ratio 9 6 - 25 07/08 [facility] CHEM PANEL AGAP 8.9 10.0 - 07/08 20.0 [facility] CHEM PANEL eGFR 95 07/08 Result Comment: The [facility] eGFR is calculated using the CKD-EPI formula. In most young, healthy individuals the eGFR will be >90 mL/min/1.73m2 . The eGFR declines with age. An eGFR of 60-89 may be normal in some populations, particularly the elderly, for whom the CKD-EPI formula has not been extensively validated. Use of the eGFR is not recommended in the following populations:< br/>
Darby viduals with unstable creatinine concentration s, including patients and those with serious co-morbid conditions.<b r/>
Patie nts with extremes in muscle mass or diet.

The data above are obtained from the National Kidney Disease Education Program (NKDEP) which additionally recommends that when the eGFR is used in patients with extremes of body mass index for purposes of drug dosing, the eGFR should be multiplied by the estimated BMI. CHEM PANEL Glucose Lvl 78 70 - 99 07/08 [facility] CHEM PANEL BUN 9 7 - 22 07/08 [facility] CHEM PANEL CO2 30 24 - 32 07/08 [facility] [facility]EL Alk Phos 54 39 - 136 07/08 [facility] CHEM PANEL Calcium Lvl 8.9 8.5 - 10.5 07/08 [facility] CHEM PANEL Sodium Lvl 139 135 - 145 07/08 [facility] CHEM PANEL Creatinine 0.96 0.50 - 07/08 MH Lvl 1.40 [facility] CHEM PANEL Albumin Lvl 4.1 3.5 - 5.0 07/08 [facility] CHEM PANEL Total 7.6 6.4 - 8.4 07/08 [facility] CHEM PANEL Potassium 3.9 3.5 - 5.1 07/08 MH Lvl /2016 [facility] CHEM PANEL Chloride Lvl 104 95 - 109 07/08 [facility] CHEM PANEL AST 9 0 - 37 07/08 [facility] CHEM PANEL ALT 25 0 - 65 07/08 [facility] HEMATOLOGY Eosinophils 0.1 0.0 - 0.5 07/08 /2016 [facility] HEMATOLOGY Basophils # 0.0 0.0 - 0.2 07/08 [facility] HEMATOLOGY Lymphocytes 1.8 1.0 - 5.5 07/08 [facility] HEMATOLOGY Monocytes # 0.4 0.0 - 0.8 07/08 [facility] HEMATOLOGY Eosinophils 1.5 0.0 - 4.0 07/08 [facility] HEMATOLOGY Basophils 0.4 0.0 - 1.0 07/08 [facility] HEMATOLOGY Segs-Bands # 4.6 1.5 - 8.1 07/08 [facility] HEMATOLOGY Monocytes 5.5 2.0 - 12.0 07/08 [facility] HEMATOLOGY Segs 66.8 45.0 - 07/08 MH 75.0 [facility] HEMATOLOGY Lymphocytes 25.8 20.0 - 07/08 40.0 [facility] HEMATOLOGY MPV 8.4 7.4 - 10.4 07/08 [facility] HEMATOLOGY MCH 30.0 27.0 - 07/08 MH 31.0 [facility] HEMATOLOGY MCHC 32.7 32.0 - 07/08 MH 36.0 [facility] HEMATOLOGY RDW 13.7 11.5 - 07/08 14.5 /2016 [facility] HEMATOLOGY Platelet 277 133 - 450 07/08 [facility] HEMATOLOGY MCV 91.8 80.0 - 07/08 94.0 /2016 [facility] HEMATOLOGY RBC 4.94 4.70 - 07/08 MH 6.10 /2016 [facility] HEMATOLOGY WBC 6.9 3.7 - 10.4 07/08 [facility] HEMATOLOGY Hct 45.4 42.0 - 07/08 54.0 [facility] HEMATOLOGY Hgb 14.8 14.0 - 07/08 18.0 [facility] URINE AND UA <=1.0 0.1 - 1.0 07/08 STOOL Urobilinogen mg/dL /2016 [facility] URINE AND UA Sq Epi None Seen 07/08 STOOL [facility] URINE AND UA Bacteria Occasional None Seen 07/08 STOOL /HPF /HPF /2016 [facility] URINE AND UA Nitrite Negative Negative 07/08 STOOL (07/07/16 6:15 PM) [facility] URINE AND UA Leuk Est Negative Negative 07/08 STOOL (07/07/16 6:15 PM) [facility] URINE AND UA Bili Negative Negative 07/08 STOOL *NA* /2016 [facility] (07/07/16 6:15 PM) URINE AND UA Blood Small Negative 07/08 STOOL *ABN* /2016 [facility] (07/07/16 6:15 PM) URINE AND UA Ketones Negative Negative 07/08 STOOL mg/dL mg/dL [facility] URINE AND UA Glucose Negative Negative 07/08 STOOL mg/dL mg/dL [facility] URINE AND UA Protein Negative Negative 07/08 STOOL mg/dL mg/dL [facility] URINE AND UA Color Colorless Yellow 07/08 STOOL *NA* /2016 [facility] (07/07/16 6:15 PM) URINE AND UA WBC <1 0 - 5 07/08 STOOL [facility] URINE AND UA Turbidity Clear Clear 07/08 STOOL (07/07/16 6:15 PM) [facility] URINE AND UA pH 7.0 5.0 - 8.0 07/08 STOOL [facility] URINE AND UA Spec Grav 1.002 <=1.030 07/08 STOOL [facility] URINE AND UA <=1.0 0.1 - 1.0 05/14 STOOL Urobilinogen mg/dL /2013 [facility] URINE AND UA Color Ltyellow 05/14 STOOL [facility] URINE AND UA Spec Grav 1.006 <=1.030 05/14 STOOL [facility] URINE AND UA Glucose Negative Negative 05/14 STOOL mg/dL mg/dL [facility] URINE AND UA pH 7.0 5.0 - 8.0 05/14 STOOL [facility] URINE AND UA Turbidity Clear Clear 05/14 STOOL (05/14/14 8:48 AM) [facility] URINE AND UA Sq Epi None Seen 05/14 STOOL [facility] URINE AND UA Protein Negative Negative 05/14 STOOL mg/dL mg/dL [facility] URINE AND UA Leuk Est Negative Negative 05/14 STOOL (05/14/14 8:48 AM) [facility] URINE AND UA WBC <1 0 - 5 05/14 STOOL [facility] URINE AND UA Nitrite Negative Negative 05/14 STOOL (05/14/14 8:48 AM) [facility] URINE AND UA Blood Negative Negative 05/14 STOOL (05/14/14 8:48 AM) [facility] URINE AND UA Bili Negative Negative 05/14 STOOL *NA* /2013 [facility] (05/14/14 8:48 AM) URINE AND UA Ketones Negative Negative 05/14 STOOL mg/dL mg/dL [facility] ANEMIA Ferritin Lvl 31 22 - 275 05/14 STUDY [facility] ANEMIA Folate Lvl 15.7 >=3.0 05/14 STUDY ng/mL [facility] ANEMIA UIBC 282 110 - 370 05/14 STUDY [facility] ANEMIA % Satur Fe 21 12 - 57 05/14 STUDY [facility] ANEMIA Iron 76 45 - 160 05/14 STUDY [facility] ANEMIA TIBC 358 228 - 428 05/14 STUDY [facility] ANEMIA Vitamin B12 510 254 - 1320 05/14 STUDY Lvl [facility] CHEM PANEL Lipase Lvl 170 73 - 393 05/14 [facility] ELECTROLYT Chloride Lvl 105 95 - 109 05/14 ES [facility] ELECTROLYT Sodium Lvl 141 135 - 145 05/14 ES [facility] ELECTROLYT Potassium 3.7 3.5 - 5.1 05/14 [facility] Lvl [facility] ELECTROLYT eGFR 82 05/14 <sup>1</sup>R ES esult [facility] Comment: The eGFR is calculated using the CKD-EPI formula. In most young, healthy individuals the eGFR will be >90 mL/min/1.73m2 . The eGFR declines with age. An eGFR of 60-89 may be normal in some populations, particularly the elderly, for whom the CKD-EPI formula has not been extensively validated. Use of the eGFR is not recommended in the following populations:& lt;br/>
I ndividuals with unstable creatinine concentration s, including patients and those with serious co-morbid conditions.<b r/>
Patie nts with extremes in muscle mass or diet.

The data above are obtained from the National Kidney Disease Education Program (NKDEP) which additionally recommends that when the eGFR is used in patients with extremes of body mass index for purposes of drug dosing, the eGFR should be multiplied by the estimated BMI. ELECTROLYT AST 17 0 - 37 05/14 MH ES [facility] ELECTROLYT ALT 25 0 - 65 05/14 ES [facility] ELECTROLYT Creatinine 1.1 0.5 - 1.4 05/14 MH ES Lvl [facility] ELECTROLYT Glucose Lvl 85 70 - 99 05/14 <sup>2</sup>I MH nterpretive [facility] Data: Adult reference range values reflect the clinical guidelines
of the [employer]. ELECTROLYT BUN 6 7 - 22 05/14 MH ES [facility] ELECTROLYT Albumin Lvl 3.6 3.5 - 5.0 05/14 ES [facility] ELECTROLYT Total 6.6 6.4 - 8.4 05/14 MH ES Protein [facility] ELECTROLYT Calcium Lvl 8.5 8.5 - 10.5 05/14 ES [facility] ELECTROLYT CO2 31 24 - 32 05/14 MH ES [facility] ELECTROLYT Globulin 3.0 2.0 - 4.0 05/14 MH ES [facility] ELECTROLYT B/C Ratio 5 6 - 25 05/14 MH ES [facility] ELECTROLYT Bili Total 0.2 0.2 - 1.3 05/14 MH ES /2013 [facility] ELECTROLYT Alk Phos 62 39 - 136 05/14 MH ES /2013 [facility] ELECTROLYT A/G Ratio 1.2 0.7 - 1.6 05/14 MH ES [facility] ELECTROLYT AGAP 8.7 10.0 - 12 MH ES 20.0 /2013 [facility] HEMATOLOGY Segs-Bands # 2.1 1.5 - 8.1 05/14 /2013 [facility] HEMATOLOGY Eosinophils 8.1 0.0 - 4.0 05/14 /2013 [facility] HEMATOLOGY Monocytes 9.1 2.0 - 12.0 05/14 /2013 [facility] HEMATOLOGY Lymphocytes 38.2 20.0 - 12/ MH 40.0 /2013 [facility] HEMATOLOGY Monocytes # 0.4 0.0 - 0.8 05/14 /2013 [facility] HEMATOLOGY Eosinophils 0.4 0.0 - 0.5 12/ MH # /2013 [facility] HEMATOLOGY Basophils 0.5 0.0 - 1.0 05/14 /2013 [facility] HEMATOLOGY Lymphocytes 1.8 1.0 - 5.5 05/14 MH # /2013 [facility] HEMATOLOGY Segs 44.1 45.0 - 05/14 MH 75.0 /2013 [facility] HEMATOLOGY Sed Rate 8 0 - 15 05/14 /2013 [facility] HEMATOLOGY Hgb 12.8 14.0 - 05/14 18.0 /2013 [facility] HEMATOLOGY MCH 30.1 27.0 - 05/14 MH 31.0 /2013 [facility] HEMATOLOGY RBC 4.26 4.70 - 05/14 MH 6.10 /2013 [facility] HEMATOLOGY Hct 38.5 42.0 - 05/14 MH 54.0 /2013 [facility] HEMATOLOGY RDW 13.1 11.5 - 05/14 14.5 /2013 [facility] HEMATOLOGY Platelet 204 133 - 450 05/14 /2013 [facility] HEMATOLOGY MCV 90.4 80.0 - 05/14 94.0 /2013 [facility] HEMATOLOGY MCHC 33.3 32.0 - 05/14 36.0 /2013 [facility] HEMATOLOGY MPV 9.1 7.4 - 10.4 05/14 /2013 [facility] HEMATOLOGY WBC 4.8 3.7 - 10.4 05/14 [facility] IMMUNOLOGY C-REACTIVE 9.1 <=2.9 mg/L 05/14 [facility] URINE AND Occult Bld Negative Negative 01/04 STOOL Stl (01/04/14 11:41 AM) /2013 [facility] CHEM PANEL Lipase Lvl 193 73 - 393 01/04 [facility] CHEM PANEL Amylase Lvl 57 25 - 115 01/04 [facility] CHEM PANEL eGFR 74 01/04 <sup>1</sup>R esult [facility] Comment: The eGFR is calculated using the CKD-EPI formula. In most young, healthy individuals the eGFR will be >90 mL/min/1.73m2 . The eGFR declines with age. An eGFR of 60-89 may be normal in some populations, particularly the elderly, for whom the CKD-EPI formula has not been extensively validated. Use of the eGFR is not recommended in the following populations:& lt;br/>
I ndividuals with unstable creatinine concentration s, including patients and those with serious co-morbid conditions.<b r/>
Patie nts with extremes in muscle mass or diet.

The data above are obtained from the National Kid[employer] Disease Education Program (NKDEP) which additionally recommends that when the eGFR is used in patients with extremes of body mass index for purposes of drug dosing, the eGFR should be multiplied by the estimated BMI. CHEM PANEL Calcium Lvl 9.5 8.5 - 10.5 01/04 [facility] CHEM PANEL CO2 28 24 - 32 01/04 [facility] CHEM PANEL Albumin Lvl 4.1 3.5 - 5.0 01/04 [facility] CHEM PANEL Total 7.6 6.4 - 8.4 01/04 [facility] CHEM PANEL ALT 18 0 - 65 01/04 [facility] CHEM PANEL Sodium Lvl 140 135 - 145 01/04 [facility] CHEM PANEL Potassium 3.4 3.5 - 5.1 01/04 Lvl [facility] CHEM PANEL Chloride Lvl 104 95 - 109 01/04 [facility] CHEM PANEL Bili Total 0.3 0.2 - 1.3 01/04 [facility] CHEM PANEL Alk Phos 74 39 - 136 01/04 [facility] CHEM PANEL AST 13 0 - 37 01/04 [facility] CHEM PANEL Glucose Lvl 91 70 - 99 01/04 <sup>2</sup>I nterpretive [facility] Data: Adult reference range values reflect the clinical guidelines
of the [employer]. CHEM PANEL BUN 6 7 - 22 01/04 [facility] CHEM PANEL Creatinine 1.2 0.5 - 1.4 01/04 MH Lvl [facility] CHEM PANEL A/G Ratio 1.2 0.7 - 1.6 01/04 [facility] CHEM PANEL Globulin 3.5 2.0 - 4.0 01/04 /2013 [facility] CHEM PANEL B/C Ratio 5 6 - 25 01/04 /2013 [facility] CHEM PANEL AGAP 11.4 10.0 - 01/04 20.0 /2013 [facility] HEMATOLOGY MCH 29.5 27.0 - 01/04 MH 31.0 /2013 [facility] HEMATOLOGY Hgb 14.4 14.0 - 01/04 MH 18.0 /2013 [facility] HEMATOLOGY Hct 43.3 42.0 - 01/04 MH 54.0 /2013 [facility] HEMATOLOGY MCV 88.6 80.0 - 01/04 94.0 /2013 [facility] HEMATOLOGY Platelet 231 133 - 450 01/04 /2013 [facility] HEMATOLOGY WBC 10.0 3.7 - 10.4 01/04 [facility] HEMATOLOGY RBC 4.89 4.70 - 01/04 6.10 /2013 [facility] HEMATOLOGY MPV 8.9 7.4 - 10.4 01/04 [facility] HEMATOLOGY MCHC 33.3 32.0 - 01/04 36.0 /2013 [facility] HEMATOLOGY RDW 13.5 11.5 - 01/04 14.5 /2013 [facility] HEMATOLOGY Basophils # 0.1 0.0 - 0.2 01/04 /2013 [facility] HEMATOLOGY Segs 77.0 45.0 - 01/04 75.0 /2013 [facility] HEMATOLOGY Lymphocytes 13.4 20.0 - 01/04 40.0 /2013 [facility] HEMATOLOGY Eosinophils 1.6 0.0 - 4.0 01/04 [facility] HEMATOLOGY Monocytes 7.3 2.0 - 12.0 01/04 [facility] HEMATOLOGY Segs-Bands # 7.7 1.5 - 8.1 01/04 [facility] HEMATOLOGY Basophils 0.7 0.0 - 1.0 01/04 [facility] HEMATOLOGY Lymphocytes 1.3 1.0 - 5.5 01/04 # /2013 [facility] HEMATOLOGY Monocytes # 0.7 0.0 - 0.8 01/04 [facility] HEMATOLOGY Eosinophils 0.2 0.0 - 0.5 01/04 # /2013 [facility] URINE AND UA Bacteria Occasional None Seen 01/04 STOOL /HPF /HPF /2013 [facility] URINE AND UA Sq Epi Occasional Few /LPF 01/04 STOOL /LPF /2013 [facility] URINE AND UA Nitrite Negative Negative 01/04 STOOL (01/04/14 9:00 AM) /2013 [facility] URINE AND UA Bili Negative Negative 01/04 STOOL *NA* /2013 [facility] (01/04/14 9:00 AM) URINE AND UA Blood Negative Negative 01/04 STOOL (01/04/14 9:00 AM) /2013 [facility] URINE AND UA Protein Negative Negative 01/04 STOOL (01/04/14 9:00 AM) [facility] URINE AND UA Glucose Negative Negative 01/04 STOOL (01/04/14 9:00 AM) [facility] URINE AND UA 0.2 0.1 - 1.0 01/04 STOOL Urobilinogen /2013 [facility] URINE AND UA Ketones Negative Negative 01/04 STOOL *NA* /2013 [facility] (01/04/14 9:00 AM) URINE AND UA Color Yellow Yellow 01/04 STOOL *NA* /2013 [facility] (01/04/14 9:00 AM) URINE AND UA Turbidity Clear Clear 01/04 STOOL (01/04/14 9:00 AM) [facility] URINE AND UA Spec Grav <=1.005 <=1.030 01/04 STOOL *NA* /2013 [facility] (01/04/14 9:00 AM) URINE AND UA pH 7.5 5.0 - 8.0 01/04 STOOL /2013 [facility] URINE AND UA Leuk Est Negative Negative 01/04 STOOL (01/04/14 9:00 AM) /2013 [facility] CHEMISTRY Lipase Lvl 218 73 - 393 01/23 Normal [facility] CHEMISTRY AST 10 0 - 37 01/23 Normal [facility] CHEMISTRY Calcium Lvl 8.4 8.5 - 10.5 01/23 LOW [facility] CHEMISTRY CO2 25 24 - 32 01/23 Normal [facility] CHEMISTRY Total 6.8 6.4 - 8.4 01/23 Normal Protein [facility] CHEMISTRY Bili Total 0.2 0.2 - 1.3 01/23 Normal [facility] CHEMISTRY Albumin Lvl 3.6 3.5 - 5.0 01/23 Normal [facility] CHEMISTRY Alk Phos 53 39 - 136 01/23 Normal [facility] CHEMISTRY ALT 29 0 - 65 01/23 Normal [facility] CHEMISTRY Glucose Lvl 86 70 - 99 01/23 Normal <sup>1</sup>I nterpretive [facility] Data: Adult reference range values reflect the clinical guidelines
of the [employer]. CHEMISTRY BUN 10 7 - 22 08/16 Normal MH /2011 [facility] CHEMISTRY Creatinine 1.0 0.5 - 1.4 08/16 Normal MH Lvl /2011 [facility] CHEMISTRY Potassium 3.6 3.5 - 5.1 08/16 Normal MH Lvl /2011 [facility] CHEMISTRY Sodium Lvl 141 135 - 145 08/ Normal MH /2011 [facility] CHEMISTRY Chloride Lvl 108 95 - 109 08/ Normal MH /2011 [facility] CHEMISTRY AGAP 11.6 10.0 - 08/ Normal MH 20.0 /2011 [facility] CHEMISTRY B/C Ratio 10 6 - 25 08/ Normal MH /2011 [facility] CHEMISTRY Globulin 3.2 2.0 - 4.0 08/ Normal MH /2011 [facility] CHEMISTRY A/G Ratio 1.1 0.7 - 1.6 / Normal MH /2011 [facility] HEMATOLOGY Platelet 247 133 - 450 / Normal MH /2011 [facility] HEMATOLOGY MPV 8.6 7.4 - 10.4 / Normal MH /2011 [facility] HEMATOLOGY RDW 14.9 11.5 - 08/ HI MH 14.5 /2011 [facility] HEMATOLOGY MCHC 33.5 32.0 - 08/ Normal MH 36.0 /2011 [facility] HEMATOLOGY Hct 35.2 42.0 - 08/ LOW MH 54.0 /2011 [facility] HEMATOLOGY MCV 85.8 80.0 - / Normal MH 94.0 /2011 [facility] HEMATOLOGY MCH 28.7 27.0 - 08 Normal MH 31.0 /2011 [facility] HEMATOLOGY RBC 4.10 4.70 - / LOW MH 6.10 /2011 [facility] HEMATOLOGY Hgb 11.8 14.0 - 08 LOW MH 18.0 /2011 [facility] HEMATOLOGY WBC 4.1 3.7 - 10.4 /16 Normal MH /2011 [facility] HEMATOLOGY Basophils # 0.0 0.0 - 0.2 08/16 Normal MH /2011 [facility] HEMATOLOGY Segs-Bands # 2.4 1.5 - 8.1 08/16 Normal MH /2011 [facility] HEMATOLOGY Lymphocytes 1.0 1.0 - 5.5 08/16 Normal MH # /2011 [facility] HEMATOLOGY Eosinophils 0.2 0.0 - 0.5 08/16 Normal MH # /2011 [facility] HEMATOLOGY Monocytes # 0.4 0.0 - 0.8 08/16 Normal MH /2011 [facility] HEMATOLOGY Basophils 0.2 0.0 - 1.0 08/16 Normal MH /2011 [facility] HEMATOLOGY Segs 58.4 45.0 - 01/23 Normal 75.0 [facility] HEMATOLOGY Lymphocytes 25.2 20.0 - 01/23 Normal 40.0 [facility] HEMATOLOGY Monocytes 10.4 2.0 - 12.0 01/23 Normal [facility] HEMATOLOGY Eosinophils 5.8 0.0 - 4.0 01/23 HI [facility] Pathology Reports No Data Provided for This Section Diagnostic Reports Report Value Date Source Abdomen 2 views DX Study: 2 views of abdomen 07/09/2016 [facility] History: Abdominal pain Comments: Visualized lung bases are clear. No radiographic evidence of free intraperitoneal air. No dilated small or large bowel loops. Moderate to large amount of stool in the right colon. Impression: Constipation. No bowel obstruction Abdomen/Pelvis w IV I. CT SCAN of the ABDOMEN with CONTRAST 05/14/2014 [facility] contrast CT II. CT SCAN of the PELVIS with CONTRAST HISTORY: Abdominal pain. Comparison is made to [...] contrast CT SL: 13 Dilan Clement M.D. Abdomen/Pelvis w IV CT Abdomen with Contrast, CT Pelvis with Contrast: 2013 [facility] contrast CT TECHNIQUE: Contiguous transaxial images of the abdomen and pelvis were performed from the lung bases to the superior pubic rami with IV contrast. Oral contrast was also administered. COMPARISON: 06/03/2011 CLINICAL HX: Abdomen pain CT [...] CT of the abdomen or pelvis. SL:13 Consultation Notes No Data Provided for This Section Discharge Summaries No Data Provided for This Section History and Physicals No Data Provided for This Section Vital Signs Vital Sign Value Date Comments Source Temperature Oral (F) 98.7 F 07/10/2016 [facility] Heart Rate 86 07/10/2016 [facility] Respitory Rate 15 07/10/2016 [facility] Systolic (mm Hg) 122 07/10/2016 [facility] Diastolic (mm Hg) 82 07/10/2016 [facility] Respitory Rate 18 07/10/2016 [facility] Heart Rate 87 07/10/2016 [facility] Systolic (mm Hg) 114 07/10/2016 [facility] Diastolic (mm Hg) 87 07/10/2016 [facility] Systolic (mm Hg) 134 07/10/2016 [facility] Diastolic (mm Hg) 95 07/10/2016 [facility] Heart Rate 98 07/10/2016 [facility] Respitory Rate 18 07/10/2016 [facility] Weight 90.909 07/10/2016 [facility] Temperature Oral (F) 99.0 F 07/10/2016 [facility] Respitory Rate 18 07/08/2016 [facility] Temperature Oral (F) 98.5 F 07/08/2016 [facility] Systolic (mm Hg) 134 07/08/2016 [facility] Diastolic (mm Hg) 94 07/08/2016 [facility] Heart Rate 79 07/08/2016 [facility] Systolic (mm Hg) 148 07/08/2016 [facility] Diastolic (mm Hg) 83 07/08/2016 [facility] Respitory Rate 20 07/08/2016 [facility] Heart Rate 81 07/08/2016 [facility] BMI Calculated 29.6 07/07/2016 [facility] Weight 90.909 07/07/2016 [facility] Temperature Oral (F) 98.1 F 07/07/2016 [facility] Height 175.26 cm 07/07/2016 [facility] Heart Rate 90 07/07/2016 [facility] Systolic (mm Hg) 139 07/07/2016 [facility] Diastolic (mm Hg) 90 07/07/2016 [facility] Respitory Rate 20 07/07/2016 [facility] Diastolic (mm Hg) 72 05/14/2014 [facility] Systolic (mm Hg) 105 05/14/2014 [facility] Respitory Rate 18 05/14/2014 [facility] Temperature Oral (F) 98.4 F 05/14/2014 [facility] Heart Rate 84 05/14/2014 [facility] Systolic (mm Hg) 100 05/14/2014 [facility] Diastolic (mm Hg) 63 05/14/2014 [facility] Heart Rate 75 05/14/2014 [facility] Temperature Oral (F) 97.8 F 05/14/2014 [facility] Respitory Rate 18 05/14/2014 [facility] Temperature Oral (F) 97.9 F 05/14/2014 [facility] Heart Rate 66 05/14/2014 [facility] Respitory Rate 17 05/14/2014 [facility] Systolic (mm Hg) 100 05/14/2014 [facility] Diastolic (mm Hg) 67 05/14/2014 [facility] Weight 100 05/13/2014 [facility] Height 175.26 cm 05/13/2014 [facility] BMI Calculated 32.56 05/13/2014 [facility] BMI Calculated 32.56 05/13/2014 [facility] Height 175.26 cm 05/13/2014 [facility] Weight 100 05/13/2014 [facility] Weight 194.5 05/12/2014 eCW: Kaisen Fang Height 68.6 05/12/2014 eCW: Kaisen Fang Temperature Oral (F) 98.6 F 05/12/2014 eCW: Kaisen Fang Heart Rate 83 05/12/2014 eCW: Kaisen Fang Diastolic (mm Hg) 82 05/12/2014 eCW: Kaisen Fang Systolic (mm Hg) 128 05/12/2014 eCW: Kaisen Fang Respitory Rate 20 05/12/2014 eCW: Kaisen Fang Weight 195.2 04/19/2014 eCW: Kaisen Fang Height 68.6 04/19/2014 eCW: Kaisen Fang Temperature Oral (F) 98.6 F 04/19/2014 eCW: Kaisen Fang Heart Rate 95 04/19/2014 eCW: Kaisen Fang Diastolic (mm Hg) 95 04/19/2014 eCW: Kaisen Fang Systolic (mm Hg) 136 04/19/2014 eCW: Kaisen Fang Respitory Rate 18 04/19/2014 eCW: Kaisen Fang Systolic (mm Hg) 114 01/04/2014 [facility] Respitory Rate 18 01/04/2014 [facility] Diastolic (mm Hg) 69 01/04/2014 [facility] Diastolic (mm Hg) 68 01/04/2014 [facility] Heart Rate 83 01/04/2014 [facility] Respitory Rate 18 01/04/2014 [facility] Systolic (mm Hg) 115 01/04/2014 [facility] Heart Rate 91 01/04/2014 [facility] Respitory Rate 18 01/04/2014 [facility] BMI Calculated 32.56 01/04/2014 [facility] Height 175.26 cm 01/04/2014 [facility] Weight 100 01/04/2014 [facility] Temperature Oral (F) 98.4 F 01/04/2014 [facility] Diastolic (mm Hg) 81 01/04/2014 [facility] Systolic (mm Hg) 136 01/04/2014 [facility] Heart Rate 144 01/04/2014 [facility] Weight 100.000 01/24/2012 [facility] Height 175.26 cm 01/24/2012 [facility] Encounters Location Location Encounter Encounter Reason Attending ADM DC Status Source Details Type Number For Provider Date Date Visit Emergency [id number] SAMIR 01/23 01/23 Discharg [facility] /2011 ed [facility] EC [id number] Samir Tito 01/04 01/04 [facility] Emergency /2013 [facility] Dbisen Initial [id number] 04/19 04/19 eCW: MD Arielle visit [id number] /2013 Prachi [id number] Arielle Velarde Initial [id number] 04/19 04/19 eCW: MD Arielle visit [id number] /2013 Prachi [id number] Arielle Velarde Sick Visit [id number] 05/12 05/12 eCW: MD Arielle - Follow up [id number] /2013 Prachi for [id number] Dwayne multiple problems [facility] Inpatient [id number] Prachi 05/13 05/14 Zack Guzmán /2013 [facility] Emergency [id number] Coy 07/07 07/08 Zack Burt /2016 [facility] Emergency [id number] Coy 07/10 07/10 Zack Burt /2016 [facility] Outpatient [id number] Non 02/19 02/19 [facility] Physician /2016 [facility] Procedures Procedure Code Date Perfomer Comments Source Appendectomy [id number] [facility] Bladder [id number] pt reports operation<sup>1</sup> bladder was [facility], blistered [facility] Cholecystectomy [id number] [facility] Assessment and Plan No Data Provided for This Section Plan of Care No Data Provided for This Section Social History Social History Date Source Social History TypeResponse 07/10/2016 [facility] Smoking Status Current every day smoker; Type: Cigarettes; Number of years: 6; Started at age : 37.0; Previous treatment: None; Concerns about tobacco use in household: No; Exposure to Tobacco Smoke None; Cigarette Smo juan j Last 365 Days No; Reg Smoking Cessation Counseling Yes Social History TypeResponse 07/10/2016 [facility] Smoking Status Current every day smoker; Type: Cigarettes; Number of years: 6; Started at age : 37.0; Previous treatment: None; Concerns about tobacco use in household: No; Exposure to Tobacco Smoke None; Cigarette Smo juan j Last 365 Days No; Reg Smoking Cessation Counseling Yes Social History ElementQualifiersDate Reported 05/12/2014 eCW: Prachi Guzmán Do you take aspirin or a blood thinner drug? . NO GarciaTosha jimenez 04/19/2014 3:57:10 PM > May 12, 2014 Tobacco Use: . Are you a: current smoker, How much do you smoke? 1 pack a day, For how many years have you smoked? 4-6 years May 12, 2014 Marital Status: . Single Garcia,Tosha 04/19/2014 3:56:57 PM > May 12, 2014 Do you exercise? . Status: Yes, What type: Coffee, Soft Drinks, Chocolate, Energy Drinks May 12, 2014 Family History No Data Provided for This Section Advance Directives No Data Provided for This Section Functional Status No Data Provided for This Section
--- OUTSIDE RECORDS SUMMARY | 2019-02-12 18:17 | XMS REPORT ---
:1970 Author [facility] [...] End Status Dosage Date Date Topiramate MEDISPAN 35820-60 25 MG Orally Apr 19, Active 1 tablet 55-06 twice a day 2013 (bid) Seroquel MEDISPAN 51495-91 50 mg Orally Active 1 tablet 78-10 Once a day at bedtime Lisinopril MEDISPAN 70470-55 20 MG Orally Inactive 1 tablet 68-01 Once a day Clonidine HCl MEDISPAN 91598-66 0.1 MG Orally Apr 19, Active 1 tablet 27-10 twice a day 2013 at bedtime (bid) Tramadol HCl MEDISPAN 50180-38 50 mg Orally May 19, Active 1 or 2 58-01 every 6 hrs for 2013 tablet headache Xanax MEDISPAN 08542-19 2 MG Orally Active 1/2 tablet 94-01 three times a in am and day (tid) noon, 1 tablet at bedtime Singulair MEDISPAN 25566-68 10 MG Orally Active 1 tablet 17-01 Once a day in the evening Protonix MEDISPAN 30314-56 40 mg Orally Active 1 tablet 41-81 once a day Cymbalta MEDISPAN 37932-48 90 Orally Once a Active 1 capsule 40-01 [facility] 37272-57 250 Orally once Active 1 tablet 99-00 [...]
--- OUTSIDE RECORDS SUMMARY | 2019-02-12 18:17 | XMS REPORT | CCD ---
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
--- OUTSIDE RECORDS SUMMARY | 2019-02-12 18:18 | XMS REPORT ---
[...] End Status Dosage Date Date Xanax MEDISPAN 50358-10 2 MG Orally Active 1/2 tablet 94-01 three times a in am and day (tid) noon, 1 tablet at bedtime Lamictal MEDISPAN 96860-04 250 Orally once Active 1 tablet 99-00 every night Clonidine [facility] 27612-50 0.1 MG Orally Apr 19, Active 1 tablet 27-10 twice a day 2013 at bedtime (bid) Cymbalta MEDISPAN 60464-91 90 Orally Once a Active 1 capsule 40-01 day [place] MEDISPAN 92372-30 10-325 MG Orally May 12, May 27, Active 1 tablet 80-73 every 6 hrs 2013 2013 as needed Dexilant [facility] 77267-29 30 MG Orally May 12, Active 1 capsule 66-30 Once a day 2013 Singulair MEDISPAN 24574-37 10 MG Orally Active 1 tablet 17-01 Once a day in the evening Tramadol HCl MEDISPAN 23905-53 50 mg Orally May 19, Active 1 or 2 58-01 every 6 hrs for 2014 tablet headache Topiramate [facility] 64425-06 25 MG Orally Apr 19, Active 1 tablet 55-06 twice a day 2013 (bid) Metronidazole MEDISPAN 14613-99 500 mg Orally May 12May 22, Active 1 tablet 32-04 Three times a 2013 2013 day Protonix MEDISPAN 88837-61 40 mg Orally Inactive 1 tablet 41-81 once a day Seroquel MEDISPAN 00836-55 50 mg Orally Active 1 tablet 78-10 Once a day at bedtime Cipro MEDISPAN 62730-20 500 mg Orally May 12May 22, Active [...]
--- OUTSIDE RECORDS SUMMARY | 2019-02-12 18:18 | XMS REPORT | Summary of Care ---
:1970 Author Organization [facility] - Health Address [address] [place] [address] Care Team Providers Name Role Phone Pcp, Patient Does Not Have A Primary Care Provider Encounter Details Date Type Department Care Team Description 01/29/2019 Orders Only [facility] Doctor Unassigned, No [address] [facility] [place] [address] [address] [place] [address] Allergies Active Allergy Reactions Severity Noted Date Comments Prochlorperazine Edisylate Anxiety 10/10/2010 Metoclopramide Hcl Anxiety 10/10/2010 Sulfamethoxazole (Bulk) Rash 01/02/2018 Trimethoprim Rash 01/02/2018 documented as of this encounter (statuses as of 01/29/2019) Medications Medication Sig Dispensed Refills Start Date End Date Status fluoxetine (PROZAC) Take 40 mg by 0 Active 40 mg capsule mouth daily. diazepam (VALIUM) 5 Take 5 mg by 0 10/11/2010 Active mg tablet mouth 2 (two) times daily. dicyclomine (BENTYL) Take 10 mg by 0 Active 10 mg capsule mouth 4 (four) times daily. eszopiclone Take 1 Tab by 30 Tab 1 10/27/2010 Active (LUNESTA) 2 mg mouth at tablet bedtime. pantoprazole Take 1 Tab by 30 Tab 2 11/02/2010 Active (PROTONIX) 40 mg EC mouth daily. tablet proMETHazine Insert 1 30 Suppository 1 11/02/2010 Active (PHENERGAN) 25 mg Suppository into suppository rectum every 4 (four) hours as needed for Nausea and Vomiting. wxywyt-krdwryvl-ouba Take 2 capsules 180 capsule 3 01/05/2018 Active ase 12,000-38,000 by mouth 3 -60,000 unit capsule (three) times daily with meals. ondansetron 4 mg Take 1 tablet by 60 tablet 0 02/16/2018 Active tablet mouth every 8 (eight) hours as needed for Nausea and Vomiting (N/V). acetaminophen-codein Take 1 tablet by 12 tablet 0 03/05/2018 Active e (TYLENOL-CODEINE mouth every 4 #3) 300-30 mg tablet (four) hours as needed for Pain (scale 7-10). ondansetron (ZOFRAN) Take 1 tablet by 12 tablet 0 03/05/2018 Active 4 mg tablet mouth every 8 (eight) hours as needed for Nausea and Vomiting (N/V). acetaminophen-codein Take 1 tablet by 20 tablet 0 03/12/2018 Active e (TYLENOL-CODEINE mouth every 6 #3) 300-30 mg tablet (six) hours as needed for Pain (scale 4-6) (for cough). ondansetron (ZOFRAN Take 1 tablet by 10 tablet 0 12/30/2018 Active ODT) 4 mg mouth every 8 disintegrating (eight) hours as tabletIndications: needed for Vomiting, Nausea and intractability of Vomiting (N/V). vomiting not specified, presence of nausea not specified, unspecified vomiting type documented as of this encounter (statuses as of 01/29/2019) Active Problems Problem Noted Date Pancreatitis 01/02/2018 Drug-seeking behavior 11/07/2010 Nausea & vomiting 10/26/2010 Abdominal pain 10/11/2010 documented as of this encounter (statuses as of 01/29/2019) Social History Tobacco Use Types Packs/Day Years Used Date Current Every Day Smoker Cigarettes 0.2 15 Smokeless Tobacco: Never Used Alcohol Use Drinks/Week oz/Week Comments No non in two years social drinker prior Sex Assigned at Date Recorded Not on file Job Start Date Occupation Industry Not on file Not on file Not on file Travel History Travel Start Travel End No recent travel history available. 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 documented as of this encounter Procedures Procedure Name Priority Date/Time Associated Diagnosis Comments CONSENT/REFUSAL FOR Routine 01/29/2019 6:55 PM CDT DIAGNOSIS AND TREATMENT documented in this encounter Results Not on filedocumented in this encounter
--- OUTSIDE RECORDS SUMMARY | 2019-02-12 18:18 | XMS REPORT ---
:1970 [facility] [place] [address] Care Team Providers Name Role Phone NOÉ [...] Verified Date/Time: 2017 07:15:04 Reading Location: [facility] [id number] Neuro Reading Room ESIUM 2017 06:19:00 Test Item Value Reference Range Comments MAGNESIUM (BEAKER) (test tial=493) 2.6 mg/dL 1.6-2.6 BASIC METABOLIC [id number] 06:19:00 Test Item Value Reference Range Comments SODIUM (BEAKER) (test 136 meq/L 136-145 xsfg=409) POTASSIUM (BEAKER) (test 4.6 meq/L 3.5-5.1 kcel=304) CHLORIDE (BEAKER) (test 107 meq/L 98-107 aetd=445) CO2 (BEAKER) (test 23 meq/L 22-29 hdgs=462) BLOOD UREA NITROGEN 13 mg/dL 7-21 (BEAKER) (test zdem=183) CREATININE (BEAKER) (test 0.81 mg/dL 0.57-1.25 vidt=938) GLUCOSE RANDOM (BEAKER) 92 mg/dL 70-105 (test ihmn=065) CALCIUM (BEAKER) (test 9.3 mg/dL 8.4-10.2 oohi=656) EGFR (BEAKER) (test 103 mL/min/1.73 sq m ESTIMATED GFR IS NOT gjmp=3095) ACCURATE CREATININE CLEARANCE IN PREDICTING GLOMERULAR FILTRATION RATE. ESTIMATED GFR IS NOT APPLICABLE FOR DIALYSIS PATIENTS. CBC W/PLT COUNT & AUTO [id number] 05:45:00 Test Item Value Reference Range Comments WHITE BLOOD CELL COUNT (BEAKER) (test oirw=089) 6.2 K/ L 3.5-10.5 RED BLOOD CELL COUNT (BEAKER) (test hjpo=074) 4.22 M/ L 4.63-6.08 HEMOGLOBIN (BEAKER) (test ydtb=149) 13.0 GM/DL 13.7-17.5 HEMATOCRIT (BEAKER) (test cqps=803) 40.2 % 40.1-51.0 MEAN CORPUSCULAR VOLUME (BEAKER) (test agda=990) 95.3 fL 79.0-92.2 MEAN CORPUSCULAR HEMOGLOBIN (BEAKER) (test 30.8 pg 25.7-32.2 kjiz=339) MEAN CORPUSCULAR HEMOGLOBIN CONC (BEAKER) (test 32.3 GM/DL 32.3-36.5 gkfn=873) RED CELL DISTRIBUTION WIDTH (BEAKER) (test 13.2 % 11.6-14.4 yvkv=284) PLATELET COUNT (BEAKER) (test njug=678) 212 K/CU MM 150-450 MEAN PLATELET VOLUME (BEAKER) (test dzry=099) 10.4 fL 9.4-12.4 NUCLEATED RED BLOOD CELLS (BEAKER) (test 0 /100 WBC 0-0 vdfu=072) NEUTROPHILS RELATIVE PERCENT (BEAKER) (test 53 % tjge=434) LYMPHOCYTES RELATIVE PERCENT (BEAKER) (test 31 % elop=346) MONOCYTES RELATIVE PERCENT (BEAKER) (test 8 % smrm=908) EOSINOPHILS RELATIVE PERCENT (BEAKER) (test 7 % yyaz=946) BASOPHILS RELATIVE PERCENT (BEAKER) (test 1 % gzwt=046) NEUTROPHILS ABSOLUTE COUNT (BEAKER) (test 3.28 K/ L 1.78-5.38 cuxr=039) LYMPHOCYTES ABSOLUTE COUNT (BEAKER) (test 1.94 K/ L 1.32-3.57 xrsy=968) MONOCYTES ABSOLUTE COUNT (BEAKER) (test 0.49 K/ L 0.30-0.82 wvbg=647) EOSINOPHILS ABSOLUTE COUNT (BEAKER) (test 0.43 K/ L 0.04-0.54 clmo=872) BASOPHILS ABSOLUTE COUNT (BEAKER) (test 0.05 K/ L 0.01-0.08 qojl=163) IMMATURE GRANULOCYTES-RELATIVE PERCENT (BEAKER) 0 % 0-1 (test yqji=9755) TSH/FREE T4 IF [id number] 07:06:00 Test Item Value Reference Range Comments THYROID STIMULATING HORMONE (BEAKER) (test 2.05 uIU/mL 0.35-4.94 zyal=643) [id number] 07:03:00 Test Item Value Reference Range Comments MAGNESIUM (BEAKER) (test vqth=320) 2.8 mg/dL 1.6-2.6 BASIC METABOLIC [id number] 07:03:00 Test Item Value Reference Range Comments SODIUM (BEAKER) (test 137 meq/L 136-145 gmxs=108) POTASSIUM (BEAKER) (test 4.1 meq/L 3.5-5.1 zqxf=248) CHLORIDE (BEAKER) (test 103 meq/L 98-107 ecvt=832) CO2 (BEAKER) (test 28 meq/L 22-29 ajix=287) BLOOD UREA NITROGEN 15 mg/dL 7-21 (BEAKER) (test zzyj=560) CREATININE (BEAKER) (test 0.97 mg/dL 0.57-1.25 svdh=924) GLUCOSE RANDOM (BEAKER) 92 mg/dL 70-105 (test qfpo=349) CALCIUM (BEAKER) (test 9.4 mg/dL 8.4-10.2 cehq=236) EGFR (BEAKER) (test 83 mL/min/1.73 sq m ESTIMATED GFR IS NOT lptt=1368) ACCURATE CREATININE CLEARANCE IN PREDICTING GLOMERULAR FILTRATION RATE. ESTIMATED GFR IS NOT APPLICABLE FOR DIALYSIS PATIENTS. [id number] 07:03:00 Test Item Value Reference Range Comments LIPASE (BEAKER) (test ljud=319) 96 U/L 8-78 LITHIUM [id number] 06:45:00 Test Item Value Reference Range Comments LITHIUM LEVEL (BEAKER) (test hvkw=500) 0.6 mmol/L 0.8-1.2 CBC W/PLT COUNT & AUTO [id number] 06:37:00 Test Item Value Reference Range Comments WHITE BLOOD CELL COUNT (BEAKER) (test lbwb=476) 4.8 K/ L 3.5-10.5 RED BLOOD CELL COUNT (BEAKER) (test sffc=853) 4.37 M/ L 4.63-6.08 HEMOGLOBIN (BEAKER) (test mkvd=361) 13.1 GM/DL 13.7-17.5 HEMATOCRIT (BEAKER) (test kzhb=312) 41.9 % 40.1-51.0 MEAN CORPUSCULAR VOLUME (BEAKER) (test nsnb=329) 95.9 fL 79.0-92.2 MEAN CORPUSCULAR HEMOGLOBIN (BEAKER) (test 30.0 pg 25.7-32.2 uqcx=489) MEAN CORPUSCULAR HEMOGLOBIN CONC (BEAKER) (test 31.3 GM/DL 32.3-36.5 rbze=535) RED CELL DISTRIBUTION WIDTH (BEAKER) (test 13.2 % 11.6-14.4 jfvq=985) PLATELET COUNT (BEAKER) (test yhwp=927) 217 K/CU MM 150-450 MEAN PLATELET VOLUME (BEAKER) (test rzzp=812) 9.8 fL 9.4-12.4 NUCLEATED RED BLOOD CELLS (BEAKER) (test 0 /100 WBC 0-0 qlac=418) NEUTROPHILS RELATIVE PERCENT (BEAKER) (test 47 % yyjp=127) LYMPHOCYTES RELATIVE PERCENT (BEAKER) (test 31 % njgw=136) MONOCYTES RELATIVE PERCENT (BEAKER) (test 11 % ggiy=120) EOSINOPHILS RELATIVE PERCENT (BEAKER) (test 9 % vhvn=722) BASOPHILS RELATIVE PERCENT (BEAKER) (test 1 % yraj=041) NEUTROPHILS ABSOLUTE COUNT (BEAKER) (test 2.26 K/ L 1.78-5.38 qfdj=418) LYMPHOCYTES ABSOLUTE COUNT (BEAKER) (test 1.51 K/ L 1.32-3.57 guzv=246) MONOCYTES ABSOLUTE COUNT (BEAKER) (test 0.55 K/ L 0.30-0.82 dfel=655) EOSINOPHILS ABSOLUTE COUNT (BEAKER) (test 0.43 K/ L 0.04-0.54 nzpn=947) BASOPHILS ABSOLUTE COUNT (BEAKER) (test 0.05 K/ L 0.01-0.08 ewmx=331) IMMATURE GRANULOCYTES-RELATIVE PERCENT (BEAKER) 0 % 0-1 (test fncs=3297)
--- OUTSIDE RECORDS SUMMARY | 2019-02-12 18:18 | XMS REPORT | Summary of Care ---
:1970 Author Organization [facility] - [facility] Address [address] [place] [address] Care Team Providers Name Role Phone Monroe Valdes Primary Care Provider Reason for Visit Reason Comments Transition Of Care Encounter Details Date Type Department Care Team Description 02/02/2019 Transition of Care [facility] Christiano Purvi Transition Of Care [facility]- [address] [place] [address] [place] [address] Allergies Active Allergy Reactions Severity Noted Date Comments Prochlorperazine Edisylate Anxiety 10/10/2010 Metoclopramide Hcl Anxiety 10/10/2010 Sulfamethoxazole (Bulk) Rash 01/02/2018 Trimethoprim Rash 01/02/2018 documented as of this encounter (statuses as of 02/02/2019) Medications Medication Sig Dispensed Refills Start Date End Date Status dicyclomine (BENTYL) Take 10 mg by 0 Active 10 mg capsule mouth 4 (four) times daily. proMETHazine Insert 1 30 Suppository 1 11/02/2010 Active (PHENERGAN) 25 mg Suppository into suppository rectum every 4 (four) hours as needed for Nausea and Vomiting. ondansetron (ZOFRAN Take 1 tablet by 10 tablet 0 12/30/2018 Active ODT) 4 mg mouth every 8 disintegrating (eight) hours as tabletIndications: needed for Vomiting, Nausea and intractability of Vomiting (N/V). vomiting not specified, presence of nausea not specified, unspecified vomiting type venlafaxine XR 150 Take 150 mg by 0 Active mg 24 hr capsule mouth daily with breakfast. Once daily in th A.M. LORazepam 2 mg Take 2 mg by 0 Active tablet mouth 2 (two) times daily before breakfast and dinner. QUEtiapine Take 100 mg by 0 Active (SEROQUEL) 100 mg mouth every tablet evening. lamoTRIgine Take 100 mg by 0 Active (LAMICTAL) 100 mg mouth daily. At tablet bed time. omeprazole 40 mg Take 40 mg by 0 Active capsule mouth 2 (two) times daily. Twice daily in the AM and bedtime. documented as of this encounter (statuses as of 02/02/2019) Active Problems Problem Noted Date Vomiting 01/30/2019 Pancreatitis 01/02/2018 Drug-seeking behavior 11/07/2010 Nausea & vomiting 10/26/2010 Abdominal pain 10/11/2010 documented as of this encounter (statuses as of 02/02/2019) Social History Tobacco Use Types Packs/Day Years Used Date Current Every Day Smoker Cigarettes 0.2 15 Smokeless Tobacco: Never Used Alcohol Use Drinks/Week oz/Week Comments No non in two years social drinker prior Financial Resource Strain Answer Date Recorded How hard is it for you to pay for the very basics like food, Hard 01/30/2019 housing, medical care, and heating? Food Insecurity Answer Date Recorded Within the past 12 months, you worried that your food would Never true 2018 run out before you got money to buy more. Within the past 12 months, the food you bought just didn't Never true 2018 last and you didn't have money to get more. Transportation Needs Answer Date Recorded In the past 12 months, has lack of transportation kept you from No 01/30/2019 medical appointments or from getting medications? In the past 12 months, has lack of transportation kept you from No 01/30/2019 meetings, work, or getting things needed for daily living? Sex Assigned at Date Recorded Not on file Job Start Date Occupation Industry Not on file Not on file Not on file Travel History Travel Start Travel End No recent travel history available. 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 documented as of this encounter Results Not on filedocumented in this encounter
--- OUTSIDE RECORDS SUMMARY | 2019-02-12 18:18 | XMS REPORT | Summary of Care ---
:1970 Author Organization [facility] - [facility] Address [address] [place] [id number] Care Team Providers Name Role Phone Monroe Valdes Primary Care Provider Reason for Visit Reason Comments Abdominal Pain Vomiting Auth/Cert Status Reason Specialty Diagnoses / Referred By Referred To Procedures Contact Contact Emergency Medicine [facility] Emergency Dept [address] [place] [address] [place] [address] Encounter Details Date Type Department Care Team Description 01/29/2019 - Hospital Encounter [facility] Medicine Surgery Josselyn Hoskins, PAC [address] [place] [address] DR [place], [place] [id number] Vomiting 01/31/2019 Unit Prudence Summers MD [address] [place] [address]. [address] [place], [place] [address] [address] [place] [address] Dr Jc [place] [id number] Allergies Active Allergy Reactions Severity Noted Date Comments Prochlorperazine Edisylate Anxiety 10/10/2010 Metoclopramide Hcl Anxiety 10/10/2010 Sulfamethoxazole (Bulk) Rash 01/02/2018 Trimethoprim Rash 01/02/2018 documented as of this encounter (statuses as of 01/31/2019) Medications Medication Sig Dispensed Refills Start End Status Date Date dicyclomine Take 10 mg by 0 Active (BENTYL) 10 mg mouth 4 (four) capsule times daily. proMETHazine Insert 1 30 Suppository 1 Active (PHENERGAN) 25 mg Suppository 1 suppository into rectum every 4 (four) hours as needed for Nausea and Vomiting. ondansetron Take 1 tablet 10 tablet 0 Active (ZOFRAN ODT) 4 mg by mouth every 9 disintegrating 8 (eight) hours tabletIndications: as needed for Vomiting, Nausea and intractability of [...] Twice daily in the AM and bedtime. fluoxetine Take 40 mg by 0 Discontinued (PROZAC) 40 mg mouth daily. 019 capsule diazepam (VALIUM) Take 5 mg by 0 Discontinued 5 mg tablet mouth 2 (two) 1 019 times daily. eszopiclone Take 1 Tab by 30 Tab 1 Discontinued (LUNESTA) 2 mg mouth at 1 019 tablet bedtime. pantoprazole Take 1 Tab by 30 Tab 2 Discontinued (PROTONIX) 40 mg mouth daily. 1 019 EC tablet ykutza-wawwjdqg-zb Take 2 capsules 180 capsule 3 Discontinued ylase by mouth 3 8 019 12,000-38,000 (three) times -60,000 unit daily with capsule meals. ondansetron 4 mg Take 1 tablet 60 tablet 0 Discontinued tablet by mouth every 8 019 8 (eight) hours as needed for Nausea and Vomiting (N/V). acetaminophen-code Take 1 tablet 12 tablet 0 Discontinued ine by mouth every 8 019 (TYLENOL-CODEINE 4 (four) hours #3) 300-30 mg as needed for tablet Pain (scale 7-10). ondansetron Take 1 tablet 12 tablet 0 Discontinued (ZOFRAN) 4 mg by mouth every 8 019 tablet 8 (eight) hours as needed for Nausea and Vomiting (N/V). acetaminophen-code Take 1 tablet 20 tablet 0 Discontinued ine by mouth every 8 019 (TYLENOL-CODEINE 6 (six) hours #3) 300-30 mg as needed for tablet Pain (scale 4-6) (for cough). documented as of this encounter (statuses as of 01/31/2019) Active Problems Problem Noted Date Vomiting 01/30/2019 Pancreatitis 01/02/2018 Drug-seeking behavior 11/07/2010 Nausea & vomiting 10/26/2010 Abdominal pain 10/11/2010 documented as of this encounter (statuses as of 01/31/2019) Social History Tobacco Use Types Packs/Day Years Used Date Current Every Day Smoker Cigarettes 0.2 15 Smokeless Tobacco: Never Used Tobacco Cessation: Ready to Quit: No; Counseling Given: No Alcohol Use Drinks/Week oz/Week Comments No non [...] of this encounter Last Filed Vital Signs Vital Sign Reading Time Taken Comments Blood Pressure 114/71 01/31/2019 12:00 PM CDT Pulse 63 01/31/2019 12:00 PM CDT Temperature 37.1 C (98.7 F) 01/31/2019 12:00 PM CDT Respiratory Rate 18 01/31/2019 12:00 PM CDT Oxygen Saturation 98% 01/31/2019 12:00 PM CDT Inhaled Oxygen Concentration - - Weight 74.8 kg (165 lb) 01/30/2019 1:05 AM CDT Height 175.3 cm (5' 9") 01/30/2019 1:05 AM CDT Body Mass Index 24.37 01/30/2019 1:05 AM CDT documented in this encounter Discharge Instructions AttachmentsThe following attachments cannot be sent through Care Everywhere.Acute Pancreatitis, Discharge Instructions for (Fijian)documented in this encounter Progress Notes Anibal Mandujano RN - 01/30/2019 2:57 PM CDTThis case is appropriate for inpatient admission. The change to inpatient admission is based on the level care this patient is receiving, medical necessity, risks associated and the expected duration of stay. The inpatient admission order has been entered per Dr. Sams. Precert status changed to Patient Class Change and inpatient registration notified via WQ to update/notify insurance. Anibal Mandujano RN, BSN [facility] Vessel Slagman O [phone] F [phone] Denilson jang MD - 01/30/2019 2:30 PM CDT [facility] Hospitalist Progress Note SUBJECTIVE: Complains of severe nausea. CURRENT MEDICATIONS - reviewed. Current Facility-Administered Medications Medication Dose Route Frequency Last Rate Last Dose dicyclomine (BENTYL) capsule 10 mg 10 mg Oral QID 10 mg at 01/30/19 1130 enoxaparin (LOVENOX) injection 40 mg 40 mg Subcutaneous DAILY 40 mg at 0906 HYDROcodone-acetaminophen (NORCO 5) 5-325 mg tablet 1 tablet 1 tablet Oral Q6HPRN lamoTRIgine (LAMICTAL) tablet 100 mg 100 mg Oral DAILY LORazepam (ATIVAN) tablet 0.25 mg 0.25 mg Oral QAM 0.25 mg at 01/30/19 0906 LORazepam (ATIVAN) tablet 1 mg 1 mg Oral QHS morpHINE injection 2 mg 2 mg Slow IV Push Q4HPRN 2 mg at 01/30/19 1330 omeprazole (PRILOSEC) capsule 40 mg 40 mg Oral BID 40 mg at 01/30/19 0906 proMETHazine (PHENERGAN) 25 mg in NaCl 0.9% (NS) 50 mL piggyback 25 mg IV Piggyback Q6HPRN 25mg at 01/30/19 1250 QUEtiapine (SEROQUEL) tablet 100 mg 100 mg Oral QHS PHYSICAL EXAM: BP 99/66 | Pulse 59 | Temp 36.6 C (97.9 F) (Oral) | Resp 18 | Ht 5' 9" ( 1.753 m) | Wt 165 lb (74.8 kg) | SpO2 97% | BMI 24.37 kg/m General: No respiratory distress Abdomen: Soft, NTND Neuro: AAOx3, no focal deficits Psych: Normal affect LABS/IMAGING - reviewed, pertinent results as below: CBC BMP PT/INR WBC x10^3 (/CMM) Date Value 11/07/2010 6.3 WBC (10*3/L) Date Value 01/29/2019 6.75 NA Date Value 01/29/2019 145 mmol/L 11/07/2010 142 MMOL/L No results found for: PT RBC x10^6 (/CMM) Date Value 11/07/2010 4.54 RBC (10*6/L) Date Value 01/29/2019 4.33 K Date Value 01/29/2019 3.4 mmol/L (L) 11/07/2010 3.7 MMOL/L PT INR (no units) Date Value 11/01/2010 1.0 PLT x10^3 (/CMM) Date Value 11/07/2010 198 PLT (10*3/L) Date Value 01/29/2019 234 CALCIUM Date Value 01/29/2019 9.3 mg/dL 11/07/2010 8.7 MG/DL HGB Date Value 01/29/2019 13.4 g/dL 11/07/2010 13.3 G/DL (L) CL Date Value 01/29/2019 105 mmol/L 11/07/2010 107 MMOL/L aPTT HCT (%) Date Value 01/29/2019 39.3 11/07/2010 38.8 (L) BUN Date Value 01/29/2019 6 mg/dL (L) 11/07/2010 8 MG/DL APTT (SEC) Date Value 11/01/2010 44 (H) CREATININE Date Value 01/29/2019 0.92 mg/dL 11/07/2010 0.84 MG/DL IMAGING- No results found for this visit on 01/29/19. ASSESSMENT/PLAN Thong Fuchs Jr. is a 48 year old male with PMH as listed above, admitted to the hospital with: Acute on chronic pancreatitis Intractable n/v IVF, anti-emetics GI consult Dr. Gustafson Clear liquid diet Psychiatric illness, anxiety, dperession Resume home meds of seroquel, ativan bid, norco prn, lamictal Doesn't take effexor Prophylaxis: DVT- enoxaparin Stress Ulcer: no indication for prophylaxis Code Status: addressed: Full Disposition: Home Denilson Sams MD Irma wells [facility] - 01/30/2019 8:30 AM CDTSubjective Patient ID: Thong Fuchs Jr. is a 48 year old male. Care Management Social Functional Assessment Patient Name: Thong Fuchs Jr. Age: [age] year old Sex: male Patient's Previous Admission Date at [facility]: 02/15/2018 Current diagnosis and co-morbidities: vomiting Readmission Questions: Was patient discharged from any acute care hospital within the last 30 days: No Social Functional Assessment: Primary language spoken/preferred: Fijian Mental Status: Alert & Oriented to Person,Place & Time Information given by: Self Patient's support system: Other Name and number of support system: jocelyn Cuadra Living Arrangement: Home Address of living arrangement : [address] [place] [id number] Persons living in home: Self Barriers to returning home: None Baseline functional status- ambulation: Independent Functional status-baseline personal care: Independent Baseline functional status- driving: Independent Baseline functional status- grocery shopping: Independent Functional status-baseline meal prep: Independent Current functional status same as prior: Yes Do you have a PCP?: Yes Name of PCP: Dr. Valdes Home Health Care Agency: No Provider Services: No DME Company: No Equipment: None Hemodialysis: No Community resources utilized: None Funding Resources: Self Pay Prescription coverage plan: Self Pay Pharmacy where meds are filled: Other Other pharmacy: [facility] Anticipated services prior to disharge: Continue Medical Eval Expected mode of discharge transportation: Same as support system Additional Recommendations for DC: Medical clearance and provided community resouces and indigent application Additional info required for discharge planning: Pending medical evaluation Recommended discharge plan: Home SFA Complete: Social Functional Assessment complete: Yes Alcohol Use Screening (AUDIT-C) How often do you have a drink containing alcohol?: Never SCORE: 0 Did patient elect to have resources provided: No Role of Care Management explained. Any issues or concerns with obtaining/affording your medications at home: no. Are you or your support system able to pickle processor medications at discharge: yes. Review of Systems Objective Physical Exam Assessment/Plan Home, community resources and indigent application provided RUTH Mejía Dentistry Teacher - Care Management [facility] [phone] [email or web address] documented in this encounter Plan of Treatment Health Maintenance Due Date Last Done Comments PNEUMOCOCCAL 0-64 YEARS COMBINED SERIES (1 of 1 - 12/05/1977 PPSV23) DTaP,Tdap,and Td Vaccines (1 - Tdap) 12/05/1990 INFLUENZA VACCINE (#1) 2019 documented as of this encounter Implants Implanted Type Area Education Reporter Device Identifier Shelf Expiration Model / Date Serial / Lot Bone-06/10/2012 BONE Implanted: 06/10/2012 (Quantity not on file) Description: 2 pins in each foot. documented as of this encounter Procedures Procedure Name Priority Date/Time Associated Comments Diagnosis CBC WITH STAT 01/29/2019 9:25 Abdominal pain, Results for this DIFFERENTIAL PM CDT unspecified procedure are in abdominal location the results section. CBC WITH DIFF STAT 01/29/2019 9:25 Abdominal pain, Results for this PM CDT unspecified procedure are in abdominal location the results section. COMP. METABOLIC STAT 01/29/2019 9:25 Abdominal pain, Results for this PANEL (01873) PM CDT unspecified procedure are in abdominal location the results section. MAGNESIUM SADAF Add-On 01/29/2019 9:25 Results for this PM CDT procedure are in the results section. LIPASE STAT 01/29/2019 9:25 Abdominal pain, Results for this PM CDT unspecified procedure are in abdominal location the results section. AMYLASE STAT 01/29/2019 9:25 Abdominal pain, Results for this PM CDT unspecified procedure are in abdominal location the results section. NOTICE OF PRIVACY Routine 01/29/2019 6:56 PRACTICES PM CDT documented in this encounter Results MAGNESIUM (01/29/2019 9:25 PM CDT) MAGNESIUM 2.1 1.7 - 2.4 mg/dL [facility] Specimen Blood - VENOUS Performing Organization Address City/State/Zipcode Phone Number [facility] CLIA: [id number], [address] [place] [address] CBC WITH DIFFERENTIAL (01/29/2019 9:25 PM CDT) WBC 6.75 4.20 - 10.70 [facility] 10*3/L [facility] RBC 4.33 4.26 - 5.52 [facility] 10*6/L [facility] HGB 13.4 12.2 - 16.4 g/dL [facility] HCT 39.3 38.4 - 49.3 % [facility] MCV 90.8 81.7 - 95.6 fL [facility] MCH 30.9 26.1 - 32.7 pg [facility] MCHC 34.1 31.2 - 35.0 g/dL [facility] RDW-SD 42.0 38.5 - 51.6 fL [facility] RDW-CV 12.7 12.1 - 15.4 % [facility] PLT 234 150 - 328 [facility] 10*3/L [facility] MPV 9.8 9.8 - 13.0 fL [facility] NRBC/100 WBC 0.0 0.0 - 10.0 /100 [facility] WBCs [facility] NRBC x10^3 <0.01 10*3/L [facility] GRAN MAT (NEUT) % 65.2 % [facility] IMM GRAN % 0.10 % [facility] LYMPH % 22.1 % [facility] MONO % 8.6 % [facility] EOS % 3.1 % [facility] BASO % 0.9 % [facility] GRAN MAT x10^3(ANC) 4.40 1.99 - 6.95 [facility] 10*3/uL [facility] IMM GRAN x10^3 <0.03 0.00 - 0.06 [facility] 10*3/uL HOSPITAL LABORATORY LYMPH x10^3 1.49 1.09 - 3.23 [facility] 10*3/uL [facility] MONO x10^3 0.58 0.36 - 1.02 [facility] 10*3/uL [facility] EOS x10^3 0.21 0.06 - 0.53 [facility] 10*3/uL [facility] BASO x10^3 0.06 0.01 - 0.09 [facility] 103/uL [facility] Specimen Blood - VENOUS Performing Organization Address City/[facility]/Zipcode Phone Number [facility] CLIA: [id number], [address] [place] [address] AMYLASE (01/29/2019 9:25 PM CDT) LI 83 35 - 110 U/L [facility] Specimen Blood - VENOUS Performing Organization Address City/[facility]/Zipcode Phone Number [facility] CLIA: [id number], [address] [place] [address] LIPASE (01/29/2019 9:25 PM CDT) LIPASE 126 0 - 220 U/L [facility] Specimen Blood - VENOUS Performing Organization Address City/[facility] Phone Number [facility] CLIA: [id number], [address] [place] [address] COMP. METABOLIC PANEL ([id number]) (01/29/2019 9:25 PM CDT) NA 145 135 - 145 [facility] mmol/L [facility] K 3.4 (L) 3.5 - 5.0 [facility] mmol/L [facility] CL 105 98 - 108 mmol/L [facility] CO2 TOTAL 27 23 - 31 mmol/L [facility] AGAP 13 2 - 16 [facility] BUN 6 (L) 7 - 23 mg/dL [facility] GLUCOSE 99 70 - 110 mg/dL [facility] CREATININE 0.92 0.60 - 1.25 [facility] mg/dL [facility] TOTAL BILI 0.3 0.1 - 1.1 mg/dL [facility] CALCIUM 9.3 8.6 - 10.6 [facility] mg/dL [facility] T PROTEIN 7.4 6.3 - 8.2 g/dL [facility] ALBUMIN 4.6 3.5 - 5.0 g/dL [facility] ALK PHOS 68 34 - 122 U/L [facility] ALT(SGPT) 29 9 - 51 U/L [facility] AST(SGOT) 23 13 - 40 U/L [facility] eGFR Calculation 88.2 mL/min/1.73m2 [facility] [place]) eGFR Calculation 106.9 mL/min/1.73m2 [facility] () [facility] Specimen Blood - VENOUS Narrative Performed At Association of Glomerular Filtration Rate (GFR) [facility] and Staging of Kidney Disease* + + +- + | GFR (mL/min/1.73 m2)| With Kidney Damage|Without Kidney Damage + + +- + |>90| Stage one| Normal + + +- + |60-89|S tage two| Decreased GFR + + +- + |30-59|S tage three| Stage three + + +- + |15-29|S tage four | Stage four + + +- + |<15 (or dialysis)|Stage five | Stage five + + +- + *Each stage assumes the associated GFR level has been in effect for at least three months.Stages 1 to 5, with or without kidney disease, indicate chronic kidney disease. Notes: Determination of stages one and two (with eGFR >59mL/min/1.73 m2) requires estimation of kidney damage for at least three months as defined by structural or functional abnormalities of the kidney, manifested by either: Pathological abnormalities or Markers of kidney damage (including abnormalities in the composition of the blood or urine or abnormalities in imaging tests). Performing Organization Address City/State/Zipcode Phone Number [facility] CLIA: [id number], [address] [place] [address] documented in this encounter Visit Diagnoses Diagnosis Vomiting - Primary Vomiting alone Abdominal pain, unspecified abdominal location documented in this encounter Administered Medications Medication Order MAR Action Action Date Dose Rate Site D5W 0.45% NaCl (1/2NS) IV New Bag 01/31/2019 9:05 AM CDT 1,000 mL 125 mL/ hr infusion 1,000 mL at 125 mL/hr, 1,000 mL, IV Infusion, CONTINUOUS, Starting Sat01/30/19 at 2015, Until Discontinued, Routine New Bag 01/30/2019 8:59 PM CDT 1,000 mL 125 mL/hr dicyclomine (BENTYL) capsule 10 mg Given 01/31/2019 8:38 AM CDT 10 mg 10 mg, Oral, QID, First dose on Sat01/30/19 at 0800, Until Discontinued, Routine Given 01/30/2019 8:59 PM CDT 10 mg Given 01/30/2019 4:31 PM CDT 10 mg enoxaparin (LOVENOX) injection 40 mg Given 01/31/2019 8:39 AM CDT 40 mg Abdomen-SC 40 mg, Subcutaneous, DAILY, First dose on Sat01/30/19 at 0900, Until Discontinued, Routine Given 01/30/2019 9:06 AM CDT 40 mg Abdomen-SC HYDROcodone-acetaminophen (NORCO 5) 5-325 Given 01/31/2019 9:11 AM CDT 1 tablet mg tablet 1 tablet 1 tablet, Oral, Q6HPRN, Starting Sat01/30/19 at 1042, Until Discontinued, Routine, Pain (scale 4-6) lamoTRIgine (LAMICTAL) tablet 100 mg Given 01/30/2019 8:59 PM CDT 100 mg 100 mg, Oral, DAILY, First dose on Sat01/30/19 at 0900, Until Discontinued, Routine LORazepam (ATIVAN) tablet 0.25 mg Given 01/31/2019 8:39 AM CDT 0.25 mg 0.25 mg, Oral, QAM, First dose on Sat01/30/19 at 0900, Until Discontinued, Routine Given 01/30/2019 9:06 AM CDT 0.25 mg LORazepam (ATIVAN) tablet 1 mg Given 01/30/2019 8:59 PM CDT 1 mg 1 mg, Oral, QHS, First dose on Sat01/30/19 at 2100, Until Discontinued, Routine morpHINE injection 2 mg Given 01/31/2019 12:44 AM CDT 2 mg 2 mg, Slow IV Push, Q4HPRN, Starting Sat01/30/19 at 0018, Until Discontinued, Routine, Pain (scale 7-10), Breakthrough Pain (scale 4-10) Given 01/30/2019 7:44 PM CDT 2 mg Given 01/30/2019 1:30 PM CDT 2 mg omeprazole (PRILOSEC) capsule 40 mg Given 01/31/2019 8:38 AM CDT 40 mg 40 mg, Oral, BID, First dose on Sat01/30/19 at 0800, Until Discontinued Given 01/30/2019 8:59 PM CDT 40 mg Given 01/30/2019 9:06 AM CDT 40 mg proMETHazine (PHENERGAN) 25 mg in NaCl 0.9% Given 01/31/2019 1:54 AM CDT 25 mg (NS) 50 mL piggyback 25 mg, IV Piggyback, Q6HPRN, Starting Sat01/30/19 at 1042, Until Discontinued, 50 mL Given 01/30/2019 7:53 PM CDT 25 mg Given 01/30/2019 12:50 PM CDT 25 mg QUEtiapine (SEROQUEL) tablet 100 mg Given 01/30/2019 8:59 PM CDT 100 mg 100 mg, Oral, QHS, First dose on Sat01/30/19 at 2100, Until Discontinued, Routine Medication Order MAR Action Action Date Dose Rate Site D5W 0.45% NaCl (1/2NS) IV New Bag 01/30/2019 11:43 AM CDT 1,000 mL 125 mL/ hr infusion 1,000 mL at 125 mL/hr, 1,000 mL, IV Infusion, ONCE, 1 dose, Sat01/30/19 at 1145, Routine docusate (COLACE) capsule 100 mg Given 01/30/2019 9:06 AM CDT 100 mg 100 mg, Oral, BID, First dose on Sat01/30/19 at 0030, Until Discontinued, Routine Given 01/30/2019 1:30 AM CDT 100 mg KCL (KLOR-CON M20) tablet 40 mEq Given 01/30/2019 9:05 AM CDT 40 mEq 40 mEq, Oral, ONCE, 1 dose, Sat01/30/19 at 0800, Routine mbcqwb-pbtjmhai-ebrvhbq (CREON) Given 01/30/2019 9:06 AM CDT 1 capsule 12,000-38,000 -60,000 unit capsule 1 capsule 1 capsule, Oral, TID MEALS, First dose on Sat01/30/19 at 0800, Until Discontinued, Routine magnesium sulfate in D5W 1 gram/100 mL RTU IV Given 01/30/2019 9:05 AM CDT 1 g Piggyback 1 g 1 g, IV Piggyback, ONCE, 1 dose, Sat01/30/19 at 0800, 100 mL morpHINE injection 4 mg Given 01/29/2019 9:30 PM CDT 4 mg 4 mg, Slow IV Push, ONCE, 1 dose, [facility] 01/29/19 at 2230, STAT morpHINE injection 4 mg Given 01/30/2019 12:17 AM CDT 4 mg 4 mg, Slow IV Push, ONCE, 1 dose, Sat01/30/19 at 0115, STAT NaCl 0.9% (NS) bolus infusion New Bag 01/29/2019 9:27 PM CDT 1,000 mL 999 mL/hr 1,000 mL at 999 mL/hr, 1,000 mL, IV Infusion, ONCE, 1 dose, [facility] 01/29/19 at 2215, STAT NaCl 0.9% (NS) IV infusion 1,000 New Bag 01/30/2019 6:37 AM CDT 1,000 mL 125 mL/hr mL at 125 mL/hr, IV Infusion, CONTINUOUS, Starting Sat01/30/19 at 0030, Until Sat01/30/19 at 1040, Routine New Bag 01/30/2019 12:30 AM CDT 1,000 mL 125 mL/hr ondansetron (ZOFRAN (PF)) injection 4 mg Given 01/29/2019 10:12 PM CDT 4 mg 4 mg, Slow IV Push, ONCE, 1 dose, [facility] 01/29/19 at 2315, SADAF ondansetron (ZOFRAN (PF)) injection 4 mg Given 01/30/2019 6:45 AM CDT 4 mg 4 mg, Slow IV Push, Q6HPRN, Starting Sat01/30/19 at 0017, Until Sat01/30/19 at 1043, Routine, Nausea and Vomiting (N/V) proMETHazine (PHENERGAN) 25 mg in NaCl 0.9% Given 01/29/2019 9:30 PM CDT 25 mg (NS) 50 mL piggyback 25 mg, IV Piggyback, ONCE, 1 dose, [facility] 01/29/19 at 2215, 50 mL proMETHazine (PHENERGAN) tablet 25 mg Given 01/30/2019 9:05 AM CDT 25 mg 25 mg, Oral, TID, First dose on Sat01/30/19 at 0800, Until Discontinued, Routine documented in this encounter
[2019-02-12] MEDS ORDERED: IBUPROFEN 400 MG TAB ONE (19:08)
[2019-02-12] MEDS ORDERED: HYDROCODONE/APAP 7.5/325 MG TAB ONE (19:08)
--- NOTE | 2019-02-12 20:04 | RAD REPORT ---
EXAM DESCRIPTION: RAD - Knee Right 3 View - 02/12/2019 7:58 pm CLINICAL HISTORY: fall;Pain COMPARISON: No comparisons FINDINGS: No fracture or dislocation seen. Trace suprapatellar fluid seen.
--- NOTE | 2019-02-12 20:07 | RAD REPORT ---
EXAM DESCRIPTION: RAD - Hand Right 3 View - 02/12/2019 7:58 pm CLINICAL HISTORY: fall;Pain COMPARISON: <Comparisons> FINDINGS: No acute fracture or dislocation evident. Mild radiocarpal joint arthritic changes.
--- NOTE | 2019-02-12 20:25 | EDPHYS ---
Physician Documentation [facility] Name: Thong Fuchs Jr Age: 48 yrs Sex: Male : 1970 Arrival Date: 02/12/2019 Time: 18:13 Bed 7 Private MD: ED Physician Angel Beltrán HPI: 02/12 19:10 This 48 yrs old Male presents to ER via Wheelchair with complaints of Hand cp Pain, Knee Pain. 19:10 Associated injuries: The patient sustained right hand, painful injury, right knee, cp abrasion, painful injury. 19:10 Details of fall: The patient fell from an upright position, while walking, and struck a cp concrete surface. Onset: The symptoms/episode began/occurred today, at 17:00. Historical: - Allergies: 18:45 Bactrim; ch 18:45 Compazine; ch 18:45 Reglan; "causes anxiety"; ch 18:45 Sulfa (Sulfonamide Antibiotics); ch - Home Meds: 18:45 Lamictal Oral [Active]; lithium carbonate 600 mg Oral cap 1 cap at bedtime [Active]; ch lorazepam 2 mg Oral tab 1 tab 2 times per day [Active]; omeprazole 40 mg Oral cpDR 2 times per day [Active]; quetiapine 200 mg Oral tab once daily [Active]; venlafaxine 150 mg Oral cp24 once daily [Active]; - PMHx: 18:45 Anxiety; Depression; guillain barre; Hypertension; PANCREATIC CALCIFICATION; ch Pancreatitis; - PSHx: 18:45 Appendectomy; rebecca foot; left wrist; Cholecystectomy; ch - Immunization history:: Adult Immunizations up to date, Last tetanus immunization: up to date. - Social history:: Smoking status: Patient uses tobacco products, smokes one-half pack cigarettes per day. - Ebola Screening: : Patient negative for fever greater than or equal to 101.5 degrees Fahrenheit, and additional compatible Ebola Virus Disease symptoms Patient denies exposure to infectious person Patient denies travel to an Ebola-affected area in the 21 days before illness onset No symptoms or risks identified at this time. ROS: 19:15 Constitutional: Negative for body aches, chills, fever, poor PO intake. cp 19:15 Eyes: Negative for injury, pain, redness, and discharge. cp 19:15 Cardiovascular: Negative for chest pain, palpitations. 19:15 Respiratory: Negative for cough, shortness of breath, wheezing. 19:15 Back: Negative for pain at rest, pain with movement. 19:15 MS/extremity: Positive for pain, tenderness, of the right hand and right knee, Negative for deformity, paresthesias. 19:15 Neuro: Negative for headache, loss of consciousness, weakness. 19:15 All other systems are negative. Exam: 19:20 Constitutional: The patient appears in no acute distress, alert, awake, non-toxic, well cp developed, well nourished. 19:20 Head/Face: Normocephalic, atraumatic. cp 19:20 Chest/axilla: Inspection: normal. 19:20 Cardiovascular: Rate: normal. 19:20 Respiratory: the patient does not display signs of respiratory distress, Respirations: normal, no use of accessory muscles, no retractions, no splinting, no tachypnea. 19:20 Abdomen/GI: Inspection: abdomen appears normal, Palpation: abdomen is soft and non-tender, in all quadrants. 19:20 Musculoskeletal/extremity: Extremities: grossly normal except: noted in the right hand: pain, tenderness, There is no evidence of decreased ROM, deformity, noted in the right knee: pain, swelling, tenderness, no evidence of decreased ROM, deformity, Circulation is intact in all extremities. the right hand and right leg Sensation intact. 19:20 Skin: injury, abrasion(s), small abrasion noted, of the right knee. 19:20 Neuro: Orientation: to person, place \\T\\ time. Mentation: is normal, Sensation: is normal. Vital Signs: 18:45 BP 112 / 69; Pulse 81; Resp 14; Temp 98.9; Pulse Ox 100% on R/A; Weight 77.11 kg; ch Height 5 ft. 9 in. (175.26 cm); Pain 9/10; 20:00 BP 115 / 70; Pulse 69; Resp 16; Temp 98.5; Pulse Ox 98% ; rr5 20:48 BP 110 / 75; Pulse 63; Resp 17; Pulse Ox 99% ; rr5 18:45 Body Mass Index 25.10 (77.11 kg, 175.26 cm) Procedures: 20:30 Splinting: Splint applied to right knee using knee immobilizer, applied by nurse. cp Examined by me, post splint application: neurovascular intact, Patient tolerated well. 20:30 Splinting: Splint applied to right hand using wrist splint, applied by nurse. Examined cp by me, post splint application: neurovascular intact, Patient tolerated well. MDM: 18:58 Patient medically screened. cp 20:23 Data reviewed: vital signs, nurses notes, radiologic studies, plain films, and as a cp result, I will discharge patient. 20:23 Test interpretation: by ED physician or midlevel provider: xrays of right hand negative cp for fracture and xrays of right knee negative for fracture. Counseling: I had a detailed discussion with the patient and/or guardian regarding: the historical points, exam findings, and any diagnostic results supporting the discharge/admit diagnosis, radiology results, the need for outpatient follow up, a orthopedic surgeon, to return to the emergency department if symptoms worsen or persist or if there are any questions or concerns that arise at home. Response to treatment: the patient's symptoms have markedly improved after treatment, and as a result, I will discharge patient. 02/12 19:04 Order name: XRAY Knee RIGHT 3 view; Complete Time: 20:37 cp 02/12 19:04 Order name: XRAY Hand RIGHT 3 View; Complete Time: 20:37 cp 02/12 20:00 Order name: Wound dressing; Complete Time: 20:47 cp 02/12 20:00 Order name: Knee Immobilizer; Complete Time: 20:47 cp 02/12 20:00 Order name: Crutches; Complete Time: 20:47 cp 02/12 20:00 Order name: Thumb Spica Splint; Complete Time: 20:47 cp Administered Medications: 19:12 Drug: Ibuprofen 800 mg Route: PO; ak1 20:07 Follow up: Response: No adverse reaction ak1 19:12 Drug: Hydrocodone-Acetaminophen (7.5 mg-325 mg) 1 tabs Route: PO; ak1 20:08 Follow up: Response: No adverse reaction; Pain is decreased; RASS: Alert and Calm (0) ak1 Disposition: 02/12/19 20:24 Discharged to Home. Impression: Pain in right hand - from fall, Contusion of right knee - from fall. - Condition is Stable. - Discharge Instructions: Contusion, Knee Pain, Hand Pain. - Prescriptions for Ibuprofen 800 mg Oral Tablet - take 1 tablet by ORAL route every 8 hours As needed take with food; 30 tablet. Tylenol- Codeine #3 300-30 mg Oral Tablet - take 2 tablets by ORAL route every 6 hours As needed; 15 tablet. - Medication Reconciliation Form, Thank You Letter, Antibiotic Education, Prescription Opioid Use, Work release form form. - Follow up: Cong Boyd MD; When: 2 - 3 days; Reason: Recheck today's complaints. - Problem is new. - Symptoms have improved. Addendum: 02/14/2019 07:01 Co-signature as Attending Physician, Angel Beltrán MD. r n Signatures: Dispatcher [employer] EDCarissa Mar RN RN Angel Long MD MD rn Ydai Delgado RN RN ak1 Jorge Monreal PA PA cp Roque, Raymond, RN RN rr5 Corrections: (The following items were deleted from the chart) 02/12 20:48 20:24 02/12/2019 20:24 Discharged to Home. Impression: Pain in right hand - from fall; rr5 Contusion of right knee - from fall. Condition is Stable. Forms are Medication Reconciliation Form, Thank You Letter, Antibiotic Education, Prescription Opioid Use. Follow up: Cong Boyd; When: 2 - 3 days; Reason: Recheck today's complaints. Problem is new. Symptoms have improved. cp 02/13 19:27 02/12 19:10 Details of fall: The patient fell from an upright position, while walking, cp and struck a tile surface, cp 02/13 19:27 02/12 19:10 Onset: The symptoms/episode began/occurred just prior to arrival, cp cp
--- NOTE | 2019-02-12 20:25 | ER ---
Nurse's Notes [facility] Name: Thong Fuchs Jr Age: 48 yrs Sex: Male : 1970 Arrival Date: 02/12/2019 Time: 18:13 Bed 7 Private MD: Diagnosis: Pain in right hand-from fall;Contusion of right knee-from fall Presentation: 02/12 18:20 Presenting complaint: Patient states: fell at work around 1700, landed on cement floor. ch c/o pain and limited ROM to R knee, pain to R hand. pt states he has had prior sx on R hand. Transition of care: patient was not received from another setting of care. 18:20 Method Of Arrival: Wheelchair 18:20 Onset of symptoms was February 12, 2019 at 17:00. Risk Assessment: Do you want to hurt ch yourself or someone else? Patient reports no desire to harm self or others. Initial Sepsis Screen: Does the patient meet any 2 criteria? No. Patient's initial sepsis screen is negative. Does the patient have a suspected source of infection? No. Patient's initial sepsis screen is negative. Care prior to arrival: None. 18:20 Acuity: LILO 4 ch Triage Assessment: 18:45 General: Appears in no apparent distress. uncomfortable, Behavior is cooperative, ch appropriate for age. Pain: Complains of pain in right hand and right knee Pain currently is 9 out of 10 on a pain scale. Historical: - Allergies: 18:45 Bactrim; 18:45 Compazine; 18:45 Reglan; "causes anxiety"; 18:45 Sulfa (Sulfonamide Antibiotics); ch - Home Meds: 18:45 Lamictal Oral [Active]; lithium carbonate 600 mg Oral cap 1 cap at bedtime [Active]; lorazepam 2 mg Oral tab 1 tab 2 times per day [Active]; omeprazole 40 mg Oral cpDR 2 times per day [Active]; quetiapine 200 mg Oral tab once daily [Active]; venlafaxine 150 mg Oral cp24 once daily [Active]; - PMHx: 18:45 Anxiety; Depression; guillain barre; Hypertension; PANCREATIC CALCIFICATION; ch Pancreatitis; - PSHx: 18:45 Appendectomy; rebecca foot; left wrist; Cholecystectomy; ch - Immunization history:: Adult Immunizations up to date, Last tetanus immunization: up to date. - Social history:: Smoking status: Patient uses tobacco products, smokes one-half pack cigarettes per day. - Ebola Screening: : Patient negative for fever greater than or equal to 101.5 degrees Fahrenheit, and additional compatible Ebola Virus Disease symptoms Patient denies exposure to infectious person Patient denies travel to an Ebola-affected area in the 21 days before illness onset No symptoms or risks identified at this time. Screenin:12 Abuse screen: Denies threats or abuse. Denies injuries from another. Nutritional ak1 screening: No deficits noted. Tuberculosis screening: No symptoms or risk factors identified. Fall Risk None identified. Assessment: 19:12 General: Appears in no apparent distress. Behavior is calm, cooperative. Pain: ak1 Complains of pain in right hand and right knee. Neuro: No deficits noted. Cardiovascular: No deficits noted. Respiratory: No deficits noted. GI: No signs and/or symptoms were reported involving the gastrointestinal system. : No signs and/or symptoms were reported regarding the genitourinary system. EENT: No signs and/or symptoms were reported regarding the EENT system. Derm: Bruising that is dark purple, on palmar aspect of right wrist abrasion to right knee s/p fall while at work. Musculoskeletal: Reports pain in right hand and right knee since 1700 s/p fall at work today. 20:00 Reassessment: Patient appears in no apparent distress at this time. Patient and/or rr5 family updated on plan of care and expected duration. Pain level reassessed. Patient is alert, oriented x 3, equal unlabored respirations, skin warm/dry/pink. awaiting for result. 20:45 Reassessment: Patient appears in no apparent distress at this time. Patient and/or rr5 family updated on plan of care and expected duration. Pain level reassessed. Patient is alert, oriented x 3, equal unlabored respirations, skin warm/dry/pink. discharge instruction given and explained without complaints made verbalized and demonstrate UNDERSTANDING Patient states feeling better. Patient states symptoms have improved. Vital Signs: 18:45 BP 112 / 69; Pulse 81; Resp 14; Temp 98.9; Pulse Ox 100% on R/A; Weight 77.11 kg; ch Height 5 ft. 9 in. (175.26 cm); Pain 9/10; 20:00 BP 115 / 70; Pulse 69; Resp 16; Temp 98.5; Pulse Ox 98% ; rr5 20:48 BP 110 / 75; Pulse 63; Resp 17; Pulse Ox 99% ; rr5 18:45 Body Mass Index 25.10 (77.11 kg, 175.26 cm) ED Course: 18:13 Patient arrived in ED. as 18:44 Triage completed. 18:45 Arm band placed on left wrist. Patient placed in an exam room, on a stretcher. ch 18:55 Jorge Monreal PA is PHCP. cp 18:55 Angel Beltrán MD is Attending Physician. cp 19:14 Patient has correct armband on for positive identification. Bed in low position. Call ak1 light in reach. Side rails up X 1. Adult w/ patient. Pulse ox on. NIBP on. 20:00 XRAY Knee RIGHT 3 view In Process Unspecified. EDMS 20:00 XRAY Hand RIGHT 3 View In Process Unspecified. EDMS 20:07 Yadi Delgado, JESSA is Primary Nurse. ak1 20:23 Cong Boyd MD is Referral Physician. cp 20:30 Crutch training done. Knee immobilizer applied on right knee. pre formed wrist splint. rr5 20:30 Wound care: to abrasion, located on right knee was cleaned with Betadine, dressed with rr5 Neosporin, 4X4s, Patient tolerated well. 20:45 No provider procedures requiring assistance completed. Patient did not have IV access rr5 during this emergency room visit. Administered Medications: 19:12 Drug: Ibuprofen 800 mg Route: PO; ak1 20:07 Follow up: Response: No adverse reaction ak1 19:12 Drug: Hydrocodone-Acetaminophen (7.5 mg-325 mg) 1 tabs Route: PO; ak1 20:08 Follow up: Response: No adverse reaction; Pain is decreased; RASS: Alert and Calm (0) ak1 Outcome: 20:24 Discharge ordered by MD. cp 20:45 Discharged to home ambulatory, with crutches, with family. rr5 20:45 Condition: stable 20:45 Discharge instructions given to patient, Instructed on discharge instructions, follow up and referral plans. medication usage, crutch walking, Demonstrated understanding of instructions, follow-up care, medications, wound care, crutch walking, Prescriptions given X 2. 20:48 Patient left the ED. rr5 Signatures: Dispatcher [employer] EDMS Carissa Kimball, RN RN Iram Florentino Amber RN RN ak1 Jorge Monreal PA PA cp Roque, Raymond, RN RN rr5
[2019-02-12 21:16] VITALS: TEMP 98.9
[2019-02-12 21:17] VITALS: BP 110/75; O2SAT 99
== END 2019-02-12 20:48 | disposition home or self-care (01) ==
LOC: ER 18:11
DX: S80.01XA Contusion of right knee, initial encounter (principal); W19.XXXA Unspecified fall, initial encounter; Y93.01 Activity, walking, marching and hiking; Y92.9 Unspecified place or not applicable; Z88.1 Allergy status to other antibiotic agents; Z88.2 Allergy status to sulfonamides; Z88.8 Allergy status to other drugs, medicaments and biological substances; F17.210 Nicotine dependence, cigarettes, uncomplicated; I10 Essential (primary) hypertension; F41.9 Anxiety disorder, unspecified; F32.9 Major depressive disorder, single episode, unspecified
CPT/HCPCS: 99284